=== PATIENT | female | born 1960 | race Caucasian/White ===

== ENCOUNTER 2019-09-26 09:52 | Outpatient (REF) | payer MEDICARE, MEDICAID, SELFPAY ==
[2019-09-26 10:27] LABS: Eosinophils 3 %; Lymphocytes 72 %; Platelet Estimate Normal (Normal); Polychromasia Trace; Segmented Neutrophils 14 %; Total Cells Counted 100 (0-100)
[2019-09-26 10:30] LABS: Absolute Neutrophil 3.2 10^3/cmm (1.4-6.5); Absolute Segmented Neutrophil 2.1 10/cmm (1.6-7.1); Band Neutrophils Absolute 0.5 10^3/cmm (0.0-1.2)
[2019-09-26 10:31] LABS: Absolute Eosinophils 0.5 10^3/cmm (0.0-0.7); Lymphocytes Absolute 10.8 10^3/cmm (1.2-3.4); Monocytes Absolute 0.9 10^3/cmm (0.1-0.6)
== END 2019-09-26 09:53 | disposition home or self-care (01) ==
LOC: LAB 09:52
PROVIDERS: Family Provider Nurse Practitioner Family; Visit Provider Physician Assistant
DX: Z01.89 Encounter for other specified special examinations (principal)
CPT/HCPCS: 85007; 85045

== ENCOUNTER 2019-10-03 08:41 | Outpatient (CLI) | payer MEDICARE, MEDICAID, SELFPAY ==
--- NOTE | 2019-10-03 | US_ITS ---
WS: [id number] RIGHT UPPER QUADRANT ULTRASOUND HISTORY: RUQ ABDOMINAL PAIN COMPARISON: None available. Liver: 13.8 cm in length. Normal size and echogenicity with no intrahepatic dilatation. No mass. Gallbladder: Normally distended gallbladder with no stones or wall thickening. CBD: 4.0 mm Pancreas: Normal size and echogenicity. Right kidney: 10.2 cm in length. Normal echogenicity with no mass or hydronephrosis. Aorta and IVC: Unremarkable. No ascites. US/US abdomen limited [id number] IMPRESSION: Normal RIGHT upper quadrant ultrasound.
== END 2019-10-03 08:42 | disposition home or self-care (01) ==
LOC: RADOUTREAD 10:18
PROVIDERS: Family Provider Nurse Practitioner Family; PCP Physician Assistant; Visit Provider Physician Assistant
DX: Z76.89 Persons encountering health services in other specified circumstances (principal)

== ENCOUNTER 2019-10-09 11:28 | Outpatient (CLI) | payer MEDICARE, MEDICAID, SELFPAY ==
--- NOTE | 2019-10-09 11:42 | XRR_ITS ---
PROCEDURE INFORMATION: Exam: XR Osseous survey; Complete axial and appendicular skeleton Exam date and time: 10/09/2019 12:08 PM Age: 59 years old Clinical indication: Condition or disease; Condition/disease: Monoclonal gammopathy/polyneuropathy; Prior surgery; Surgery type: C and L spine TECHNIQUE: Imaging protocol: Radiological examination. Complete osseous survey. Axial and appendicular skeleton. COMPARISON: No relevant prior studies available. FINDINGS: Bones/joints: Metallic surgical hardware and reversal of cervical lordosis is seen in the cervical spine. Negative for lytic bone changes. A chronic fracture is seen in the right 6th posterior lateral rib. Metallic surgical hardware seen in the lower lumbar spine. There is osteopenia and osteoarthritis of the dorsal and lumbar spine. Otherwise No fracture. No dislocation. Soft tissues: Unremarkable. XR/XR bone survey* [id number] IMPRESSION: Postsurgical changes are seen in the cervical spine and lumbar spine Otherwise negative for lytic bone changes
== END 2019-10-09 11:29 | disposition home or self-care (01) ==
LOC: RAD 11:34
PROVIDERS: Family Provider Nurse Practitioner Family; PCP Physician Assistant; Visit Provider Physician Assistant
DX: D47.2 Monoclonal gammopathy (principal); G62.9 Polyneuropathy, unspecified
CPT/HCPCS: 77075

== ENCOUNTER → 2019-10-22 13:14 | Outpatient (BNVA) | payer MEDICARE, MEDICAID, SELFPAY | PROVIDERS: Family Provider Nurse Practitioner Family; PCP Physician Assistant; Referring Provider Physician Assistant; Visit Provider Psychiatry & Neurology Neurology | DX: G56.03 Carpal tunnel syndrome, bilateral upper limbs (principal); G62.9 Polyneuropathy, unspecified | CPT/HCPCS: 95886; 95911 ==

== ENCOUNTER → 2019-10-25 12:10 | Outpatient (BNVA) | payer MEDICARE, MEDICAID, SELFPAY | PROVIDERS: Family Provider Nurse Practitioner Family; PCP Physician Assistant; Referring Provider Physician Assistant; Visit Provider Psychiatry & Neurology Neurology | DX: G62.9 Polyneuropathy, unspecified (principal); M54.17 Radiculopathy, lumbosacral region | CPT/HCPCS: 95886; 95909 ==

== ENCOUNTER 2019-10-31 09:58 | Outpatient (CLI) | payer MEDICARE, MEDICAID, SELFPAY ==
[2019-10-31 12:13] LABS: Basophils # 0.1 10^3/uL (0.0-0.1); Basophils % 0.3 %; Eosinophils # 0.2 10^3/uL (0.0-0.8); Eosinophils % 1.1 %; Hematocrit 31.2 % (37.0-47.0); Hemoglobin 9.9 g/dL (11.5-15.3); Lymphocytes # 12.1 10^3/uL (0.8-4.8); Lymphocytes % 70.6 %; Mean Corpuscular HGB Conc 31.7 g/dL (30.0-36.0); Mean Corpuscular Volume 94.5 fL (81-99); Mean Platelet Volume 9.4 fL (7.4-10.4); Monocytes # 1.5 10^3/uL (0.2-0.9); Monocytes % 8.7 %; Neutrophils # 3.2 10^3/uL (1.8-7.7); Neutrophils % 18.8 %; Nucleated Red Blood Cells % 0 %; Platelet Count 124 10^3/cmm (130-400); Red Cell Distribution Width 15.3 % (12.1-15.1); White Blood Count 17.1 10^3/uL (4.0-10.0)
[2019-10-31 12:22] LABS: LAB Peripheral Smear Sent for Review
[2019-10-31 12:29] LABS: Slide Review Slide Review Perform
[2019-10-31 13:01] LABS: Alanine Aminotransferase 21 U/L (0-33); Albumin Level 3.8 g/dL (3.5-5.2); Alkaline Phosphatase 71 IU/L (35-105); Anion Gap 15.8 (5-19); Aspartate Amino Transferase 46 U/L (0-32); Blood Urea Nitrogen 8 mg/dL (6-20); Calcium 9.8 mg/dL (8.5-10.5); Carbon Dioxide 28 mmol/L (22-29); Chloride 96 mmol/L (98-107); Globulin 4.7 g/dL (1.3-4.6); Glomerular Filtration Rate 64.3 mL/min (90-130); Glucose 111 mg/dL (65-115); Lactate Dehydrogenase 231 U/L (135-214); Potassium 3.8 mmol/L (3.5-5.1); Sodium 136 mmol/L (136-145); Total Bilirubin 0.3 mg/dL (0.15-1.2); Total Protein 8.5 g/dL (6.6-8.7)
[2019-10-31 13:26] LABS: Immunoglobulin IGA 113 mg/dL (70-400); Immunoglobulin IGG 1129 mg/dL (700-1600)
[2019-10-31 13:41] LABS: Immunoglobulin IGM 1464 mg/dL (40-230)
--- NOTE | 2019-10-31 18:41 | ONC CON_ITS ---
Dr. Solorzano New Patient Note Patient: Yulisa Kinney Unit #: [id number]: 1960 Dicatated By: Robin Solorzano M.D.Date of Visit: Oct 31, 2019 Onc MED New Patient/Consult Referring Physician: Sanchez GROVER Chief Complaint: Lymphocytosis with monoclonal gammopathy and anemia. History of Present Illness: This is a 59-year-old woman with a mild lymphocytosis, anemia, and evidence of a monoclonal gammopathy by protein electrophoresis. She has hypertension and hyperlipidemia, and she also has a diagnosis of fibromyalgia. She has longstanding degenerative arthritis and degenerative disease of the spine. She has had multiple surgeries on both the cervical and lumbar spine. Recently she has been seeing Dr. Jasso in neurology for peripheral neuropathy symptoms. She has been diagnosed with bilateral carpal tunnel syndrome and lumbar radiculopathy. On 09/26/2019 she had a follow-up outpatient visit with Lucy Dean. Her laboratory studies included CBC showing hemoglobin 9.7 g and hematocrit 31.5%. The red cell indices were normal. The white blood cell count was elevated 14,900 with the differential showing 23% granulocytes, 68% lymphocytes, and 7% monocytes. The platelet count was normal at 165,000. Comprehensive metabolic profile showed borderline renal function with BUN 15 and creatinine 1.1 mg/dL. The albumin was normal at 4.2 g/dL with calculated serum globulin elevated at 4.4 g/dL. The liver enzymes were normal. Sed rate and CRP levels were normal. TSH was borderline at 4.74 ???IUl/mL. B12 was normal at 568 pg/mL. Folate was greater than 24.0 ng/mL. The serum iron studies showed slightly low transferrin saturation at 18%. Ferritin was normal at 65 ng/mL. Protein electrophoresis showed a monoclonal protein band quantitating at 1.2 g/dL. Immunofixation showed IgM lambda. She complains that she is very fatigued. She has been on an iron supplement, and she says that it has not been helping. She is able to do some light work. ECOG score is 1. Her appetite has not been good, but her weight has been stable. She has low-grade fever once or twice a week, in the range of 99 to 100 degrees. She has been having some night sweating. She complains that her balance is really bad. She has numbness and tingling in her arms/hands and in her legs and feet. She complains that her legs sometimes do not work, and she also has been dropping objects. She complains that her vision is blurry. She has chronic sinusitis symptoms. She reports having difficulty swallowing. She does not complain of cough, and she has not been having shortness of breath or chest pain. She has been having loose stools for a long time. She has not been aware of any blood in the stool, but she indicates her stools did test positive for blood. She had negative EGD and colonoscopy in June. She has urgency with urination. She has arthritis pain in her hands and she has chronic pain in her neck and back. Past Medical History: Her medical history includes cervical spinal stenosis, degenerative arthritis, degenerative disease of the spine, fibromyalgia, hyperlipidemia, and hypertension. She also was found to be positive for the Factor V Leiden mutation. Past Surgical History: Her surgical/procedural history includes bunionectomy on the right foot, cervical spine surgery x 4, section x 2, EGD and colonoscopy, facial surgery x 3, lumbar spine surgery x 2, multiple oral surgeries, rotator cuff repair x 2, and surgery for dislocated left hip. Medications: Aspirin 1 Tablet (of 81 mg) Oral daily, Atorvastatin Calcium 1 Tablet (of 10 mg) Oral at bedtime, Calcium Citrate + D 1 Tablet (of 315-200 mg - Units) Oral b.i.d., Cyclobenzaprine HCl 1 - 2 Tablet (of 10 mg) Oral b.i.d., Ferrous Sulfate 1 Tablet (of 325 (65 fe) mg) Oral daily, hydroCHLOROthiazide 1 Tablet (of 12.5 mg) Oral daily, Meloxicam 1 Tablet (of 7.5 mg) Oral daily, Metoprolol Tartrate 1 Tablet (of 50 mg) Oral b.i.d., Multivitamin Adult 1 Tablet Oral daily, Vitamin C 1 Capsule (of 500 mg) Oral daily Allergies: Cortisone Acetate, Demerol, Dilaudid, Haldol, and Morphine Sulfate. Social History: Ms. Kinney is and she is a disabled. She has a history of smoking for 30 years up to 2 packs of cigarettes daily. She quit smoking in 2006. She has just occasional alcohol use. Family History: Father had diabetes, coronary artery disease, and chronic kidney disease. He at age 70. Her mother had COPD and history of strokes. She at age 71. A sister with septic shock. Another sister is in good health. She has 1 brother who has coronary disease. Her daughter was found to have factor V Leiden mutation in the course of her evaluation following a stillbirth. Review Of Symptoms: Constitutional - Her energy is low and she is fatigued. She is able to do very light work at home. Her appetite is not very good, but her weight is stable. She often has low-grade fevers of around 99. No chills. She has sweating at night. ECOG score is 1, Eyes - Her vision is blurry, ENMT - She has chronic sinus issues. No mouth sores. No sore throat. She has difficulty swallowing certain foods, especially meats and bread, Hematologic/Lymphatic - No abnormal bruising or bleeding, Respiratory - No shortness of breath. No cough. No pleuritic pain or hemoptysis, Cardiovascular - No angina pain. No palpitations, Gastrointestinal - No nausea or vomiting. No heartburn or acid reflux. Her bowels are loose, which is chronic for her. She has blood in her stool, Genitourinary (F) - No dysuria or hematuria. No urinary frequency. She has urgency. No incontinence. She recently had a kidney infection, Musculoskeletal - She has arthritis in her hands and in her spine and neck, Integumentary - No skin complications, Neurologic - No headache. She frequently feels light-headed and dizzy. She has a lot of trouble with her balance. She has numbness and tingling in her hands and feet. Sometimes she has the numbness and tingling in her arms up to her elbows and in her legs up to her knees, Psychiatric - No anxiety or depression. She has trouble sleeping at night. Vital Signs: Performed on Oct 31, 2019 10:56: 4, 23.67, 1.47 sq.m, 59.00 in, 98 %, 97 /min, 18 /min, 106/73 mm(hg), 99.7 F (HIGH), and 117.2 lbs (HIGH). Physical Examination: Constitutional - She appears chronically ill, Eyes - Sclerae nonicteric. Conjunctivae clear, ENMT - No lesions noted in the oral cavity, Neck - No mass or thyromegaly, Hematologic/Lymphatic - No cervical, clavicular, or axillary adenopathy, Respiratory - Lungs are clear. She has pretty good air movement bilaterally, Cardiovascular - Heart rhythm is regular. There is no murmur, gallop, or rub noted. There is no carotid bruit noted, Abdomen - Soft and non-tender. Liver is not enlarged. The spleen is palpable on inspiration just below the costal margin. There is no abdominal mass or ascites noted and there is no inguinal adenopathy, Back/Spine - No spine or CVA tenderness noted, Extremities - No edema. Pedal pulses are palpable bilaterally. There are osteoarthritis changes in both hands, Integumentary - No rashes. No suspicious skin lesions noted, Neurologic - She has postural instability and she has somewhat of a shuffling gait. She does not appear to have any focal neurologic deficit. Impression: 1. Patient with lymphocytosis, anemia, and IgM monoclonal gammopathy. This is clearly indicative of a lymphoproliferative disorder, most likely Waldenstrom's macroglobulinemia, though it also could be CLL with an associated monoclonal protein. 2. She has significant peripheral neuropathy, which could also be associated with Waldenstrom's macroglobulinemia. Her other medical illnesses include: 3. Hypertension. 4. Hyperlipidemia. 5. Fibromyalgia. 6. Degenerative arthritis and degenerative disease of the spine. She has associated cervical spinal canal stenosis. 7. She was reportedly found to be positive for the Factor V Leiden mutation. Plan: The laboratory findings and clinical implications were reviewed with the patient. She clearly has evidence of a lymphoproliferative disorder. I think this is most likely Waldenstrom's macroglobulinemia, as it can be associated with peripheral neuropathy. We discussed the fact that lymphoproliferative disorders in this category are treatable malignancies, though not curable. At least initially I will recheck laboratory studies including her CBC, comprehensive metabolic profile, LDH level, serum protein electrophoresis and immunofixation, and quantitative immunoglobulin levels. I will review the blood smear, though will request a whole blood flow cytometry for lymphoma/leukemia markers. At some point she will also need staging evaluation with either CT chest/abdomen/pelvis or PET/CT, and she will need to undergo bone marrow aspiration/biopsy, but I would first like to see what the flow cytometry shows. Signed By: Robin Solorzano M.D. <<Signature on File>>
[2019-11-01 07:34] LABS: PROTEIN, TOTAL 7.6 g/dL (6.1-8.1)
[2019-11-01 12:02] LABS: ABNORMAL PROTEIN BAND 1 1.1 g/dL (NONE DETECTED); ALBUMIN 3.7 g/dL (3.8-4.8); ALPHA 1 GLOBULIN 0.4 g/dL (0.2-0.3); ALPHA 2 GLOBULIN 0.9 g/dL (0.5-0.9); BETA 1 GLOBULIN 0.5 g/dL (0.4-0.6); BETA 2 GLOBULIN 0.3 g/dL (0.2-0.5); GAMMA GLOBULIN 1.9 g/dL (0.8-1.7)
[2019-11-01 16:56] LABS: KAPPA LIGHT CHAIN, FREE, SERUM 33.8 mg/L (3.3-19.4); KAPPA/LAMBDA LIGHT CHAINS FREE 0.63 (0.26-1.65); LAMBDA LIGHT CHAIN, FREE, SERU 53.3 mg/L (5.7-26.3)
== END 2019-10-31 09:59 | disposition home or self-care (01) ==
PROVIDERS: Family Provider Nurse Practitioner Family; PCP Physician Assistant; Referring Provider Physician Assistant; Visit Provider Internal Medicine Medical Oncology
DX: D47.2 Monoclonal gammopathy (principal); D64.9 Anemia, unspecified; D72.820 Lymphocytosis (symptomatic); I10 Essential (primary) hypertension; E78.5 Hyperlipidemia, unspecified; M79.7 Fibromyalgia; M19.90 Unspecified osteoarthritis, unspecified site; G56.03 Carpal tunnel syndrome, bilateral upper limbs; M54.16 Radiculopathy, lumbar region; G89.29 Other chronic pain; M48.02 Spinal stenosis, cervical region; D68.51 Activated protein C resistance; G62.9 Polyneuropathy, unspecified; Z79.82 Long term (current) use of aspirin; Z87.891 Personal history of nicotine dependence
CPT/HCPCS: 36415; 80053; 82784; 83615; 83883; 84155; 84165; 85025; 99205

== ENCOUNTER 2019-11-06 07:35 | Outpatient (CLI) | payer MEDICARE, MEDICAID, SELFPAY ==
[2019-12-03 09:32] LABS: Miscellaneous Test See Scanned Lab Rpt
== END 2019-11-06 07:36 | disposition home or self-care (01) ==
LOC: ONCMED 16:01
PROVIDERS: Family Provider Nurse Practitioner Family; PCP Physician Assistant; Visit Provider Internal Medicine Medical Oncology
DX: Z01.89 Encounter for other specified special examinations (principal)

== ENCOUNTER 2019-11-14 09:54 | Outpatient (CLI) | payer MEDICARE, MEDICAID, SELFPAY ==
[2019-11-14] MEDS: sodium chloride 0.9% 500 ML 999 ML IV (10:16)
--- NOTE | 2019-11-14 11:18 | CT_ITS ---
WS: [id number] CT CHEST, ABDOMEN, AND PELVIS TECHNIQUE: Contrast-enhanced CT of the chest, abdomen, and pelvis with coronal and sagittal reformatt ed images. CLINICAL INFORMATION: LYMPHOPROLIFEATIVE DISORDER COMPARISON: None. DLP: 974.[address] scans at [facility] use at least one of these dose optimization techniques: automat ed exposure control; mA and/or kV adjustment per patient size (includes targeted exams where dose is matched to clinical indication); or iterative reconstruction. CT CHEST: Mild chronic emphysematous changes. No acute pulmonary infiltrates. No suspicious pulmonary parenchym al abnormalities. No suspicious pulmonary mass or lesion. Normal caliber thoracic aorta. Proximal osman n pulmonary arteries are normal. Coronary calcification. Normal thyroid gland. No mediastinal or kevon r lymphadenopathy. Normal endobronchial tree. Prominent left axillary lymph nodes the largest measuring 9 mm in short axis dimension. Slightly prom inent inferior axillary lymph nodes measuring up to 8 mm. No evidence of supraclavicular lymphadenopa thy. CT ABDOMEN AND PELVIS: Normal liver. Normal portal vein and splenic vein. Gallbladder is contracted. Enlargement of the righ t hepatic lobe. Splenomegaly measuring 13.1 cm [id number]. Mild prominence of the distal common vineet e duct measuring 6 mm. Adrenal glands are normal. Normal renal parenchymal enhancement. Mild renal cortical atrophy. No hydr onephrosis. Normal GE junction. No upper abdominal lymphadenopathy. No periaortic lymphadenopathy. Urine distended bladder. Normal caliber small and large bowel. Incidental fat-containing umbilical he rnia. Prominent inguinal lymph nodes the largest measuring up to 10 mm. Prominent upper abdominal lym ph node measuring 11 mm along the celiac axis. Slightly prominent periaortic lymph node measuring 7 m m. Additional shotty periaortic lymph nodes. Prior postoperative changes pedicle screw fixation L4-5 with interspinous spacer. Interbody fusion gr aft. Grade 1 anterolisthesis L4 on L5. Unilateral right-sided pedicle screws with right pedicle screw fixation. CT/CT chest abd pel w con* IMPRESSION: 1. Prominent left axillary lymph nodes the largest measuring up to 10 mm. 2. No mediastinal or hilar lymphadenopathy. 3. Enlarged celiac axis lymph node measuring 11.5 mm. 4. Prominent left paraaortic lymph node measuring 7 mm. Additional Shotty myla aortic lymph nodes. 5. Prominent left greater than right inguinal lymph nodes measuring up to 10 m m. 6. Enlarged right hepatic lobe. Splenomegaly.
[2019-11-14] MEDS: iohexol 300 mg/mL 100 mL Btl IV (13:28)
== END 2019-11-14 09:55 | disposition home or self-care (01) ==
PROVIDERS: Family Provider Physician Assistant; PCP Physician Assistant; Visit Provider Internal Medicine Medical Oncology
DX: D47.9 Neoplasm of uncertain behavior of lymphoid, hematopoietic and related tissue, unspecified (principal); R59.1 Generalized enlarged lymph nodes; R16.1 Splenomegaly, not elsewhere classified; E86.0 Dehydration
CPT/HCPCS: 71260; 74177; 96360; J7040; Q9967

== ENCOUNTER 2019-12-05 08:58 | Day surgery (SDC) | payer MEDICARE, MEDICAID, SELFPAY ==
[2019-12-05 09:39] VITALS: BP 103/66; PULSE 90; RESP 18; TEMP 36.3; O2SAT 98; BMI 23.0
--- NOTE | 2019-12-05 10:19 | ANES.PREANE2 ---
Pre-Anesthetic Assessment Pre-Anesthetic Assessment: Height/Weight: Height 1.5 m Weight 51.71 kg Temp Pulse Resp BP Pulse Ox 97.4 F L 90 18 103/66 98 12/05/19 09:39 12/05/19 09:39 12/05/19 09:39 12/05/19 09:39 12/05/19 09:39 Proposed Procedure: Operation Date: 12/05/19 10:30 Proposed Procedures p Bone Marrow Biopsy(Not Applicable) - Dori Castano MD Operation Date: 12/05/19 11:30 Proposed Procedures p Bone Marrow Biospy With Aspiration(Not Applicable) - Dori Castano MD Was Beta Emilie taken within 24 hours: Yes Last intake: Intake Last Liquid Date 12/04/19 Last Liquid Time 19:00 Last Intake: 20:00 Social: Social History: Alcohol (2-3 times a week) and Tobacco Pack years: stop 2006 Exam: Pre-Anes Outpt Exam: alert, oriented x 3, clear to auscultation bilaterally and regular rate & rhythm Airway: Submandibular: WNL Cervical ROM: WNL MP: 2 Dentition: False (upper) Pulmonary: Pulmonary: None reported CV/HEM: CV/HEM: Anemia and HTN Comments: denies CP/SOB : : None reported Hepatic: Hepatic: None reported GI: GI: None reported Metabolic: Metabolic: None reported Musc/skel: Musc/skel: OA/DJD Neuropsych: Neuropsych: None reported Anesthetic Plan: ASA status: 3 Anesthesia: MAC Risk of > 500 ml blood loss (7ml/kg in children): No Data Anesthesia Cardiac Studies: No Data to Display
[2019-12-05] MEDS: sodium chloride 0.9% 1,000 ML 30 ML IV (10:40)
[2019-12-05 11:05] VITALS: BP 97/58; PULSE 87; RESP 16; TEMP 36.6; O2SAT 100
[2019-12-05 11:07] LABS: INR 0.89 (0.8-1.2)
[2019-12-05 11:10] VITALS: BP 95/56; PULSE 85; RESP 16; O2SAT 100
[2019-12-05 11:15] VITALS: BP 100/67; PULSE 86; RESP 16; O2SAT 100
--- NOTE | 2019-12-05 11:24 | ANE.PACU2 ---
 Inpatient post-anesthesia follow up: Airway intact: Yes Vital signs: Temperature 97.4 F Pulse Rate 90 Respiratory Rate 18 Blood Pressure 103/66 Pulse Oximetry 98 Oxygen Delivery Me thod Room Air Oxygen Flow Rate Fraction of Inspir ed Oxygen Hydration adequate: Yes Nausea and vomiting: No Pain level: 1 Mental status: Baseline
--- NOTE | 2019-12-05 11:38 | P.DS_ITS ---
Discharge Providers Date of Discharge: December 05, 2019 Attending Provider at Discharge: Dori Castano MD Primary Care Provider: Lucy Dean Reason for Visit Reason for Visit: Reason For Visit: [place] Hospital Course Discharge Summary: Patient underwent bone marrow aspiration and biopsy, tolerated procedure well, nursing were given post procedure instructions. And being discharged home in a stable condition. And follow-up with Dr. Solorzano as scheduled. Patient was advised to call in case she has any issues or concerns. Discharge Data Data Completed and Pending: Labs from last 24 hours 12/05/19 10:15 PT 12.10 INR 0.89 Vitals: Last Vital Signs Temp 97.8 F 12/05/19 11:05 Pulse 86 12/05/19 11:15 Resp 16 12/05/19 11:15 BP 100/67 12/05/19 11:15 Pulse Ox 100 12/05/19 11:15 Discharge Plan Discharge Patient Disposition: Home, Self-Care Prescriptions: No Action multivitamin Tablet 1 tab PO DAILY RF: 0 cyclobenzaprine 10 mg Tablet 10 mg PO TID RF: 0 metoprolol succinate 50 mg Tablet Extended Release 24 Hr 50 mg PO BID RF: 0 Aspir-81 81 mg Tablet,Delayed Release (Dr/Ec) 81 mg PO DAILY RF: 0 Vitamin C 500 mg Tablet 250 mg PO BID RF: 0 Colace 100 mg Capsule 100 mg PO DAILY RF: 0 Calcium 500 + D 500 mg(1,250mg) -200 unit Tablet RF: 0 hydrochlorothiazide 12.5 mg Tablet 12.5 mg PO DAILY RF: 0 atorvastatin RF: 0 meloxicam RF: 0 Referrals: Lucy Dean PA [Primary Care Provider] - Patient Instructions: Post Anesthesia Care Discharge Attestations Time Spent in Discharge Care*: less than 30 min Quality Metrics Clinical Quality Measures During this hospital stay, did patient experience: None Coding Level of Care Code Acute 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
--- NOTE | 2019-12-05 11:43 | P.PCN_ITS ---
Bone Marrow Biopsy Bone Marrow Biopsy: I was consulted by [] office regarding bone marrow biopsy on [Yulisa Kinney ]. Briefly, the patient is a [59 ] year old [Female with [Macroglobulinemia]. In the Outpatient Services Department, with nursing staff and laboratory technologists in attendance, the procedure was discussed with the patient. Appropriate consent form had been signed. Appropriate alternatives, benefits and risks of procedure were discussed with the patient and she was pre- operatively assessed with a history and physical by myself and cleared for the biopsy procedure. The patient did request IV sedation and that was provided by the Anesthesia Department. Under aseptic condition, right posterior iliac area was cleaned and prepped, local anesthesia was given and about 15 mL of bone marrow aspirate and core biopsy was obtained. Patient tolerated procedure well, specimen was sent for routine histopathology, flow cytometry/cytogenetics and lymphoma panel. Postprocedure instructions were given to the nursing Thank you for allowing me to participate in this patient's care and diagnosis. Coding Level of Care Code Acute Manager Beverage for Luis Walden
[2019-12-05 11:45] VITALS: BP 103/67; PULSE 87; RESP 18; O2SAT 96
[2019-12-10 09:47] LABS: Miscellaneous Test See Scanned Lab Rpt
[2019-12-17 11:28] LABS: Clinical Indication See Report; Specimen Type See Report
[2019-12-17 11:29] LABS: Miscellaneous Test See Scanned Lab Rpt
== END 2019-12-05 12:40 | disposition home or self-care (01) ==
PROVIDERS: Internal Medicine Medical Oncology; Family Provider Physician Assistant; PCP Physician Assistant; Visit Provider Internal Medicine Hematology & Oncology
PROC: (CPT 38221; principal; 2019-12-05 10:30)
DX: D47.2 Monoclonal gammopathy (principal); D72.820 Lymphocytosis (symptomatic)
CPT/HCPCS: 12345; 36415; 38222; 85097; 85610; 88184; 88237; 88264; 88305; 88311; 88313; 88341; 88342; J2704; J7030

== ENCOUNTER 2019-12-16 12:48 | Outpatient (CLI) | payer MEDICARE, MEDICAID, SELFPAY ==
[2019-12-16 13:34] LABS: Basophils % 0.3 %; Eosinophils # 0.2 10^3/uL (0.0-0.8); Eosinophils % 1.3 %; Hematocrit 29.5 % (37.0-47.0); Hemoglobin 9.3 g/dL (11.5-15.3); Lymphocytes # 8.8 10^3/uL (0.8-4.8); Lymphocytes % 65.7 %; Mean Corpuscular HGB Conc 31.5 g/dL (30.0-36.0); Mean Corpuscular Hemoglobin 29.4 pg (28.0-34.0); Mean Corpuscular Volume 93.4 fL (81-99); Mean Platelet Volume 9.9 fL (7.4-10.4); Monocytes # 1.2 10^3/uL (0.2-0.9); Monocytes % 8.8 %; Neutrophils # 3.1 10^3/uL (1.8-7.7); Neutrophils % 23.4 %; Nucleated Red Blood Cells % 0 %; Platelet Count 120 10^3/cmm (130-400); Red Blood Count 3.16 10^6/uL (4.1-5.3); White Blood Count 13.3 10^3/uL (4.0-10.0)
[2019-12-16 13:42] LABS: Alanine Aminotransferase 21 U/L (0-33); Albumin Level 4.1 g/dL (3.5-5.2); Alkaline Phosphatase 66 IU/L (35-105); Anion Gap 18.1 (5-19); Aspartate Amino Transferase 48 U/L (0-32); Blood Urea Nitrogen 17 mg/dL (6-20); Calcium 10.3 mg/dL (8.5-10.5); Carbon Dioxide 24 mmol/L (22-29); Chloride 94 mmol/L (98-107); Glomerular Filtration Rate 46.1 mL/min (90-130); Glucose 122 mg/dL (65-115); Lactate Dehydrogenase 214 U/L (135-214); Osmolality Calculated 272 mOsm/kg (285-295); Potassium 4.1 mmol/L (3.5-5.1); Sodium 132 mmol/L (136-145); Total Bilirubin 0.3 mg/dL (0.15-1.2); Total Protein 8.1 g/dL (6.6-8.7)
[2019-12-16 14:06] LABS: Slide Review Slide Review Perform
[2019-12-16 14:35] LABS: Hepatitis B Surface AB. 3.5 (0-8.5); Hepatitis B Surface Antigen. Non-Reactive (Nonreactive)
[2019-12-16 15:34] LABS: Iron 43 ug/dL (37-145); Percent Saturation 15.4 % (20-50); Total Iron Binding Capacity 279 mcg/dl; Unsaturated Iron Binding 236 ug/dL (112-347)
--- NOTE | 2019-12-16 19:54 | ONC FU_ITS ---
Dr. Solorzano Patient Follow-Up Note Patient: Yulisa Kinney Unit #: [id number]: 1960 Dicatated By: Robin Solorzano M.D.Date of Visit:Dec 16, 2019 Onc Med Follow-up/Prog Note Chief Complaint: Waldenstrom's macroglobulinemia. 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 She has been seeing Dr. Jasso in neurology for peripheral neuropathy symptoms. She had been diagnosed with bilateral carpal tunnel syndrome and lumbar radiculopathy. On 09/26/2019 she had a follow-up outpatient visit with Lucy Dean. Her laboratory studies included CBC showing hemoglobin 9.7 g and hematocrit 31.5%. The red cell indices were normal. The white blood cell count was elevated 14,900 with the differential showing 23% granulocytes, 68% lymphocytes, and 7% monocytes. The platelet count was normal at 165,000. Comprehensive metabolic profile showed borderline renal function with BUN 15 and creatinine 1.1 mg/dL. The albumin was normal at 4.2 g/dL with calculated serum globulin elevated at 4.4 g/dL. The liver enzymes were normal. Sed rate and CRP levels were normal. TSH was borderline at 4.74 ???IUl/mL. B12 was normal at 568 pg/mL. Folate was greater than 24.0 ng/mL. The serum iron studies showed slightly low transferrin saturation at 18%. Ferritin was normal at 65 ng/mL. Protein electrophoresis showed a monoclonal protein band quantitating at 1.2 g/dL. Immunofixation showed IgM lambda. I had seen her initially on 10/31/2019. She was noted to have a palpable spleen, but there was no peripheral lymphadenopathy noted. Her repeat CBC showed hemoglobin 9.9 g, white blood cell count 17,000, and platelet count 124,000. The differential showed 70% lymphocytes, 18% neutrophils, 8% monocytes, and 1% eosinophils. Comprehensive metabolic profile was unremarkable except for slightly elevated SGOT at 46/32 U/L. LDH was just slightly elevated at 231/214 U/L. Protein electrophoresis showed an M band quantitating at 1.1 g/dL. The quantitative immunoglobulins included IgG elevated at 1464/230 mg/dL, IgG normal at 1129 mg/dL, and IgA normal at 113 mg/dL. The free light chain assay showed elevated lambda light chain at 53.3 mg/L, kappa light chain 33.8 mg/L and kappa/lambda ratio within the normal range at 0.63. A whole blood flow cytometry on 11/06/2019 showed on monotypic B-cell population which was positive for CD19, CD20, and CD22. There was dim/partial positivity to FMC7 and CD25. A subset showed surface lambda light chain restriction, but the remaining population appeared to be light chain negative. The monotypic B cells were negative for CD5, CD10, CD23, CD11c, CD103, CD123, CD200, CD38, and CD34. The phenotype was felt to be nonspecific. Staging CT scans of the chest, abdomen, and pelvis on 11/14/2019 showed prominent left axillary lymph nodes, the largest measuring 10 mm, an enlarged celiac axis lymph node measuring 11.5 mm, a prominent left periaortic lymph node measuring 7 mm, and prominent inguinal lymph nodes measuring up to 10 mm. The spleen was enlarged measuring 13.1 cm. The right hepatic lobe was noted to be enlarged, but the liver otherwise appeared normal. She underwent bone marrow aspiration/biopsy on 12/05/2019. The interpretation was limited due to the bone marrow aspirate specimens having been hemodiluted without cellular spicules. Bone marrow was noted to be hypercellular on the biopsy specimen, averaging 60 to 90% cellularity. An extensive interstitial and diffuse lymphoid infiltrate was noted to involve a high proportion of the marrow space, estimated at 70 to 80%. The lymphoid cells were noted to be small and round with clumped nuclear chromatin. There was evidence of plasmacytic differentiation. The flow cytometry showed nonspecific phenotype, similar to the whole blood specimen. Iron stores were noted to be reduced, but not absent. Overall, the findings were not definitive, but they were suggestive of lymphoplasmacytic lymphoma. Her other medical illnesses includehypertension, hyperlipidemia, fibromyalgia, and degenerative arthritis/degenerative disease of the spine. She has had multiple surgeries on both the cervical and lumbar spine. She reportedly was found to be positive for the Factor V Leiden mutation. She has history of smoking for 30 years, up to 2 packs of cigarettes daily. She quit smoking in 2006. She is seen for a follow-up visit. She says her energy is not very good. She is able to do some light work. Her ECOG score is 1. She says she is not hungry, but she eats. Her weight is stable. She has no fever or night sweats. She does not complain of cough, shortness of breath, or chest pain. She complains that her bowels have been runny for several years, but with intermittent episodes of constipation. She has no other GI or complaints. She has joint pain, mainly in her hands and elbows, and she has chronic back pain. She does not complain of headache. She says she always gets dizzy when she is looking up. She continues to have numbness/tingling in her hands and feet. It is severe enough that she drops objects frequently. She also has symptoms of restless leg syndrome at night, and she has a lot of leg cramps at night. Medications: Aspirin 1 Tablet (of 81 mg) Oral daily, Atorvastatin Calcium 1 Tablet (of 10 mg) Oral at bedtime, Calcium Citrate + D 1 Tablet (of 315-200 mg - Units) Oral b.i.d., Cyclobenzaprine HCl 1 - 2 Tablet (of 10 mg) Oral b.i.d., hydroCHLOROthiazide 1 Tablet (of 12.5 mg) Oral daily, Meloxicam 1 Tablet (of 7.5 mg) Oral daily, Metoprolol Tartrate 1 Tablet (of 50 mg) Oral b.i.d., Multivitamin Adult 1 Tablet Oral daily, Vitamin C 1 Capsule (of 500 mg) Oral daily Allergies: Cortisone Acetate, Demerol, Dilaudid, Haldol, and Morphine Sulfate. Review of Systems: Constitutional - She does not have very good energy, though she is able to do light housework. Her appetite is good and weight is stable. No fever, chills, hot flashes, or night sweats. ECOG score is 1, ENMT - No sinus congestion/drainage. No mouth sores. No sore throat or difficulty swallowing, Hematologic/Lymphatic - No abnormal bruising or bleeding, Respiratory - No shortness of breath. No cough. No pleuritic pain or hemoptysis, Cardiovascular - No angina pain. No palpitations, Gastrointestinal - No nausea or vomiting. No heartburn or acid reflux. She has chronic problems with bowel function, with mostly loose stools, but with episodes of constipation. No blood in the stool or black stools, Genitourinary (F) - No dysuria or hematuria. No urinary frequency. No urgency or incontinence, Musculoskeletal - She has chronic arthritis pain in her hands and elbows. She also has back pain, Integumentary - No skin complications, Neurologic - No headache. She has chronic dizziness with positonal changes. She continues to have numbness and tingling in her hands and feet. She has symptoms of restless leg syndrome and she has muscle cramping in her legs at night, Psychiatric - No anxiety or depression. No insomnia. Vital Signs: Performed on Dec 16, 2019 13:04 Height - 59.00 in Weight - 115.8 lbs (LOW) BSA - 1.46 sq.m BMI - 23.39 Temperature - 98.0 F (LOW) Pulse - 88 /min Respiration - 18 /min BP - 101/64 mm(hg) O2 Sat - 95 % (LOW) Pain - 0 Physical Examination: Constitutional - She appears somewhat weak generally, Eyes - Sclerae nonicteric. Conjunctivae clear, ENMT - No lesions noted in the oral cavity, Hematologic/Lymphatic - No cervical, clavicular, or axillary adenopathy, Respiratory - Lungs are clear with good air movement bilaterally, Cardiovascular - Heart rhythm is regular. There is no murmur, gallop, or rub noted, Abdomen - Soft and non-tender. Liver is not enlarged. The spleen is palpable on inspiration just below the costal margin. There is no abdominal mass or ascites noted and there is no inguinal adenopathy, Extremities - No edema, Neurologic - She does not appear to have any focal neurologic deficit. Lab/Imaging: Test performed on Dec 16, 2019 13:11 LDH (Total) 214 U/L Sodium 132 mmol/L Potassium 4.1 mmol/L Chloride 94 mmol/L CO2 24 mmol/L Anion Gap 18.1 BUN 17 mg/dL Creatinine 1.2 mg/dL Cr Clearance (Est) 42.37 mL/min eGFR 46.1 mL/min Glucose 122 mg/dL Calcium 10.3 mg/dL Protein, Total 8.1 g/dL Albumin 4.1 g/dL Globulin 4.0 g/dL Bilirubin, Total 0.3 mg/dL ALT (SGPT) 21 U/L AST (SGOT) 48 U/L Alkaline Phosphatase 66 IU/L WBC 13.3 10 3/uL RBC 3.16 10 6/uL HGB 9.3 g/dL HCT 29.5 % MCV 93.4 fL MCH 29.4 pg MCHC 31.5 g/dL RDW 15.0 % Platelet Count 120 10 3/cmm MPV 9.9 fL Neutrophils 3.1 10 3/uL Lymphocytes 8.8 10 3/uL Monocytes 1.2 10 3/uL Eosinophils 0.2 10 3/uL Basophils 0.0 10 3/uL Neutrophil % 23.4 % Lymphocyte % 65.7 % Monocyte % 8.8 % Eosinophil % 1.3 % Basophils % 0.3 % CBC Slide Review Slide Review Perform SLIDE SCAN AGREES WITH AUTO DIFF. Impression: 1. Patient with lymphoproliferative disorder with associated IgM monoclonal gammopathy. The bone marrow findings are not definitive, but the entire clinical picture is consistent with Waldenstrom's macroglobulinemia. 2. She has significant peripheral neuropathy, which I suspect is related. Her other medical illnesses include: 3. Hypertension. 4. Hyperlipidemia. 5. Fibromyalgia. 6. Degenerative arthritis and degenerative disease of the spine. She has associated cervical spinal canal stenosis. 7. She was reportedly found to be positive for the Factor V Leiden mutation. Plan: The results of the flow cytometry studies and the bone marrow findings were reviewed with the patient. We discussed the clinical implications. She clearly has a lymphoproliferative disorder. It appears to be most consistent with Waldenstrom's macroglobulinemia, and I suspect that the peripheral neuropathy is related. An MYD88 analysis is now in process, and those results will be helpful in confirming the diagnosis and in guiding therapy. I reviewed the major options for initial therapy which would be the bendamustine/rituximab chemotherapy combination versus ibrutinib/rituximab. The latter would be the preferred option if she is confirmed to be MYD88 positive. She will be contacted for further recommendations when those results are available. In the meantime, I will check serum iron studies, and she will begin on an oral iron supplement as indicated. Signed By: Robin Solorzano M.D. <<Signature on File>>
== END 2019-12-16 12:49 | disposition home or self-care (01) ==
LOC: ONCMED 12:48
PROVIDERS: Family Provider Physician Assistant; PCP Physician Assistant; Visit Provider Internal Medicine Medical Oncology
DX: C88.0 Waldenstrom macroglobulinemia (principal); D47.2 Monoclonal gammopathy; M79.642 Pain in left hand; M79.641 Pain in right hand; M25.522 Pain in left elbow; M25.521 Pain in right elbow; G62.9 Polyneuropathy, unspecified; I10 Essential (primary) hypertension; E78.5 Hyperlipidemia, unspecified; M79.7 Fibromyalgia; M19.90 Unspecified osteoarthritis, unspecified site; M48.02 Spinal stenosis, cervical region; D68.51 Activated protein C resistance; G25.81 Restless legs syndrome; Z79.82 Long term (current) use of aspirin; Z79.899 Other long term (current) drug therapy; Z87.891 Personal history of nicotine dependence
CPT/HCPCS: 36415; 80053; 83516; 83520; 83540; 83550; 83615; 85025; 86705; 86706; 87340; 99214

== ENCOUNTER 2020-01-28 06:46 | Outpatient (RCR) | payer MEDICARE, MEDICAID, SELFPAY ==
[2020-01-10 11:44] LABS: Alanine Aminotransferase 20 U/L (0-33); Albumin Level 3.6 g/dL (3.5-5.2); Alkaline Phosphatase 62 IU/L (35-105); Anion Gap 14.4 (5-19); Aspartate Amino Transferase 45 U/L (0-32); Blood Urea Nitrogen 10 mg/dL (6-20); Calcium 8.8 mg/dL (8.5-10.5); Carbon Dioxide 26 mmol/L (22-29); Chloride 96 mmol/L (98-107); Globulin 3.8 g/dL (1.3-4.6); Glomerular Filtration Rate 56.9 mL/min (90-130); Glucose 89 mg/dL (65-115); Osmolality Calculated 269 mOsm/kg (285-295); Potassium 4.4 mmol/L (3.5-5.1); Sodium 132 mmol/L (136-145); Total Bilirubin 0.3 mg/dL (0.15-1.2); Total Protein 7.4 g/dL (6.6-8.7)
[2020-01-10 13:25] LABS: Basophils # 0.1 10^3/uL (0.0-0.1); Basophils % 0.6 %; Eosinophils # 0.2 10^3/uL (0.0-0.8); Hemoglobin 8.8 g/dL (11.5-15.3); Lymphocytes # 8.2 10^3/uL (0.8-4.8); Lymphocytes % 67.5 %; Mean Corpuscular HGB Conc 31.4 g/dL (30.0-36.0); Mean Corpuscular Hemoglobin 28.7 pg (28.0-34.0); Mean Corpuscular Volume 91.2 fL (81-99); Mean Platelet Volume 10.2 fL (7.4-10.4); Monocytes # 1.2 10^3/uL (0.2-0.9); Neutrophils # 2.4 10^3/uL (1.8-7.7); Neutrophils % 19.5 %; Nucleated Red Blood Cells % 0 %; Platelet Count 121 10^3/cmm (130-400); Red Blood Count 3.07 10^6/uL (4.1-5.3); Red Cell Distribution Width 15.9 % (12.1-15.1); White Blood Count 12.1 10^3/uL (4.0-10.0)
[2020-01-10 13:32] LABS: Slide Review Slide Review Perform
[2020-01-13] MEDS: acetaminophen 325 mg Tablet 650 MG PO (09:30)
[2020-01-13] MEDS: sodium chloride 0.9% 500 ML 75 ML IV (09:45)
[2020-01-20 09:11] LABS: Basophils # 0.1 10^3/uL (0.0-0.1); Basophils % 0.9 %; Eosinophils # 0.1 10^3/uL (0.0-0.8); Eosinophils % 1.5 %; Hematocrit 28.4 % (37.0-47.0); Hemoglobin 8.7 g/dL (11.5-15.3); Lymphocytes # 5.1 10^3/uL (0.8-4.8); Lymphocytes % 53.4 %; Mean Corpuscular HGB Conc 30.6 g/dL (30.0-36.0); Mean Corpuscular Hemoglobin 28.5 pg (28.0-34.0); Mean Corpuscular Volume 93.1 fL (81-99); Mean Platelet Volume 10.5 fL (7.4-10.4); Monocytes # 1.2 10^3/uL (0.2-0.9); Monocytes % 12.6 %; Neutrophils % 31.4 %; Nucleated Red Blood Cells % 0 %; Platelet Count 125 10^3/cmm (130-400); Red Blood Count 3.05 10^6/uL (4.1-5.3); Red Cell Distribution Width 16.4 % (12.1-15.1); White Blood Count 9.6 10^3/uL (4.0-10.0)
[2020-01-20 09:31] LABS: Alanine Aminotransferase 18 U/L (0-33); Albumin Level 4.1 g/dL (3.5-5.2); Alkaline Phosphatase 50 IU/L (35-105); Anion Gap 17.1 (5-19); Aspartate Amino Transferase 36 U/L (0-32); Blood Urea Nitrogen 18 mg/dL (6-20); Calcium 9.8 mg/dL (8.5-10.5); Carbon Dioxide 26 mmol/L (22-29); Chloride 99 mmol/L (98-107); Globulin 3.5 g/dL (1.3-4.6); Glomerular Filtration Rate 33.1 mL/min (90-130); Glucose 86 mg/dL (65-115); Osmolality Calculated 282 mOsm/kg (285-295); Potassium 4.1 mmol/L (3.5-5.1); Sodium 138 mmol/L (136-145); Total Bilirubin 0.5 mg/dL (0.15-1.2); Total Protein 7.6 g/dL (6.6-8.7)
[2020-01-20] MEDS: acetaminophen 325 mg Tablet 650 MG PO (11:40)
[2020-01-20] MEDS: sodium chloride 0.9% 250 ML 75 ML IV (11:46)
--- NOTE | 2020-01-24 10:38 | ONC FU_ITS ---
[facility] Patient Note Patient: Yulisa Kinney Unit #: [id number]: 1960 Dictated By: Rosetta VictoriaDate of Visit: January 20, 2020 Onc MED Follow-Up/Prog Note Chief Complaint: Waldenstrom's macroglobulinemia. 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 She has been seeing Dr. Jasso in neurology for peripheral neuropathy symptoms. She had been diagnosed with bilateral carpal tunnel syndrome and lumbar radiculopathy. On 09/26/2019 she had a follow-up outpatient visit with Lucy Dean. Her laboratory studies included CBC showing hemoglobin 9.7 g and hematocrit 31.5%. The red cell indices were normal. The white blood cell count was elevated 14,900 with the differential showing 23% granulocytes, 68% lymphocytes, and 7% monocytes. The platelet count was normal at 165,000. Comprehensive metabolic profile showed borderline renal function with BUN 15 and creatinine 1.1 mg/dL. The albumin was normal at 4.2 g/dL with calculated serum globulin elevated at 4.4 g/dL. The liver enzymes were normal. Sed rate and CRP levels were normal. TSH was borderline at 4.74 ???IUl/mL. B12 was normal at 568 pg/mL. Folate was greater than 24.0 ng/mL. The serum iron studies showed slightly low transferrin saturation at 18%. Ferritin was normal at 65 ng/mL. Protein electrophoresis showed a monoclonal protein band quantitating at 1.2 g/dL. Immunofixation showed IgM lambda. Dr Solorzano had seen her initially on 10/31/2019. She was noted to have a palpable spleen, but there was no peripheral lymphadenopathy noted. Her repeat CBC showed hemoglobin 9.9 g, white blood cell count 17,000, and platelet count 124,000. The differential showed 70% lymphocytes, 18% neutrophils, 8% monocytes, and 1% eosinophils. Comprehensive metabolic profile was unremarkable except for slightly elevated SGOT at 46/32 U/L. LDH was just slightly elevated at 231/214 U/L. Protein electrophoresis showed an M band quantitating at 1.1 g/dL. The quantitative immunoglobulins included IgG elevated at 1464/230 mg/dL, IgG normal at 1129 mg/dL, and IgA normal at 113 mg/dL. The free light chain assay showed elevated lambda light chain at 53.3 mg/L, kappa light chain 33.8 mg/L and kappa/lambda ratio within the normal range at 0.63. A whole blood flow cytometry on 11/06/2019 showed on monotypic B-cell population which was positive for CD19, CD20, and CD22. There was dim/partial positivity to FMC7 and CD25. A subset showed surface lambda light chain restriction, but the remaining population appeared to be light chain negative. The monotypic B cells were negative for CD5, CD10, CD23, CD11c, CD103, CD123, CD200, CD38, and CD34. The phenotype was felt to be nonspecific. Staging CT scans of the chest, abdomen, and pelvis on 11/14/2019 showed prominent left axillary lymph nodes, the largest measuring 10 mm, an enlarged celiac axis lymph node measuring 11.5 mm, a prominent left periaortic lymph node measuring 7 mm, and prominent inguinal lymph nodes measuring up to 10 mm. The spleen was enlarged measuring 13.1 cm. The right hepatic lobe was noted to be enlarged, but the liver otherwise appeared normal. She underwent bone marrow aspiration/biopsy on 12/05/2019. The interpretation was limited due to the bone marrow aspirate specimens having been hemodiluted without cellular spicules. Bone marrow was noted to be hypercellular on the biopsy specimen, averaging 60 to 90% cellularity. An extensive interstitial and diffuse lymphoid infiltrate was noted to involve a high proportion of the marrow space, estimated at 70 to 80%. The lymphoid cells were noted to be small and round with clumped nuclear chromatin. There was evidence of plasmacytic differentiation. The flow cytometry showed nonspecific phenotype, similar to the whole blood specimen. Iron stores were noted to be reduced, but not absent. Overall, the findings were not definitive, but they were suggestive of lymphoplasmacytic lymphoma. 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 Ms. Kinney was advised to pursue treatment with rituximab and ibrutinib. She began her first cycle on January 13, 2020. Her other medical illnesses includehypertension, hyperlipidemia, fibromyalgia, and degenerative arthritis/degenerative disease of the spine. She has had multiple surgeries on both the cervical and lumbar spine. She reportedly was found to be positive for the Factor V Leiden mutation. She has history of smoking for 30 years, up to 2 packs of cigarettes daily. She quit smoking in 2006. She is here today for follow-up. She is due for day 8 treatment. She states she tolerated the rituximab and ibrutinib well last week. She did have an increase in Requip for leg cramps but states it is really not helping at all. She has been taking 2 of the Requip at night. Per up-to-date the max is 3 mg at at bedtime therefore will go up to 0.75 mg on the Requip and see how she does with that. She states her mouth is feeling some better but she needs refills on her mouth medicines . She states her appetite is still somewhat poor but she is still trying to eat. She states she is trying to remain active but she tires easily but recovers well with rest. She denies any fever or chills. She is had no nausea or vomiting. She states her breathing is the same. She denies any diarrhea or constipation. She denies any pain. Her ECOG is 1. Past Medical History: Cervical spinal stenosis Degenerative arthritis Degenerative disease of the spine Factor V Leiden mutation Fibromyalgia Hyperlipidemia Hypertension Past Surgical History: Bunionectomy on the right foot Cervical spine surgery x 4 section x 2 EGD and colonoscopy Facial surgery x 3 Lumbar spine surgery x 2 Multiple oral surgeries Rotator cuff repair x 2 Surgery for dislocated left hip Allergies: Cortisone Acetate, Demerol, Dilaudid, Haldol, and Morphine Sulfate. Medications: Allopurinol Tablet Oral Aspirin 1 Tablet (of 81 mg) Oral daily Atorvastatin Calcium 1 Tablet (of 10 mg) Oral at bedtime Calcium Citrate + D 1 Tablet (of 315-200 mg - Units) Oral b.i.d. Cyclobenzaprine HCl 1 - 2 Tablet (of 10 mg) Oral t.i.d. hydroCHLOROthiazide 1 Tablet (of 12.5 mg) Oral daily Meloxicam 1 Tablet (of 7.5 mg) Oral daily Metoprolol Tartrate 1 Tablet (of 50 mg) Oral b.i.d. Multivitamin Adult 1 Tablet Oral daily Vitamin C 1 Capsule (of 500 mg) Oral daily Family History: Ms. Kinney's mother at age 71: emphysema. Ms. Kinney's father at age 70: congestive heart failure, and hypertension, and myocardial infarction, and type II diabetes. Ms. Kinney has 1 brother who is alive: coronary artery disease. She has 2 sisters: 1 alive, 1 . Ms. Kinney's first sister's septic shock. Father had diabetes, coronary artery disease, and chronic kidney disease. He at age 70. Her mother had COPD and history of strokes. She at age 71. A sister with septic shock. Another sister is in good health. She has 1 brother who has coronary disease. Her daughter was found to have factor V Leiden mutation in the course of her evaluation following a stillbirth. Social History: Ms. Kinney is and she is a disabled. Ms. Kinney quit smoking 12 years ago but had smoked 2.0 packs/day for 30 years. She drinks occasionally. Ms. Kinney reports the following support systems: lives with spouse, significant other, family, or friends, lives in own house, supportive family/friends willing to assist with needs, and transportation problems exist and will require assistance. Her diet consists of regular meals. She indicates her activity level as: light exercise. She has a history of smoking for 30 years up to 2 packs of cigarettes daily. She quit smoking in 2006. She has just occasional alcohol use. Review Of Symptoms: Constitutional Denies fevers, chills, night sweats, excessive fatigue or weight loss. Allergic/Immunologic No reactions. Eyes Denies significant visual changes. No diplopia. No amaurosis. ENMT Denies changes in hearing, sore throat, mouth sores, difficulty or changes in swallowing ability, and/or sinus drainage. Endocrine No diabetes, thyroid disease or hormone replacement. Denies hot flashes or night sweats. Hematologic/Lymphatic Denies easy bruising or bleeding. The patient denies any tender or palpable lymph nodes. Respiratory Denies dyspnea on exertion, chest pain, cough or hemoptysis. Denies orthopnea. Cardiovascular Denies anginal chest pain, palpitations or orthopnea. Gastrointestinal Denies nausea, vomiting, diarrhea, GI bleeding, or constipation. Denies change in bowel habits and/or stool color, no heartburn or early satiety. Genitourinary (F) No hematuria, hesitancy, incontinence, vaginal bleeding, discharge or other problems with urination. Musculoskeletal Denies joint pain, swelling or redness. No decreased range of motion. Integumentary Denies chronic rashes, inflammation, ulcerations or skin changes. Neurologic Denies headache, blurred vision, and no areas of focal weakness or numbness. Normal gait. No sensory problems. Psychiatric Denies insomnia, depression, keshawn or mood swings. Vital Signs: Performed on January 20, 2020 10:57 Height - 59.00 in Weight - 114 lbs (LOW) BSA - 1.45 sq.m BMI - 23.03 Temperature - 97.5 F (LOW) Pulse - 87 /min Respiration - 18 /min BP - 121/73 mm(hg) O2 Sat - 95 % (LOW) Pain - 0,1 - No physically strenuous activity, but ambulatory and able to carry out light or sedentary work (e.g. office work, light house work). (ECOG) Physical Examination: Constitutional Alert, oriented, no acute distress. Skin pink, warm and dry. Head Normocephalic; atraumatic. Eyes Conjunctivae and sclerae are clear and without icterus. Pupils are reactive and equal. ENMT No oral exudates, ulcers, masses, thrush or mucositis. Oropharynx clear. Tongue normal. Neck Supple without masses or thyromegaly. No jugular venous distension. Hematologic/Lymphatic No petechiae or purpura. No tender or palpable lymph nodes in the cervical or supraclavicular areas. Respiratory Lungs are clear to auscultation without rhonchi or wheezing. Cardiovascular Regular rate and rhythm of heart without murmurs,clicks, gallops or rubs. Abdomen Non-tender, non-distended, no masses or ascites. Good bowel sounds noted in all quads. No guarding or rebound tenderness. No pulsatile masses. Back/Spine Non-tender to palpation. Extremities No visible deformities, no cyanosis, clubbing or edema. Musculoskeletal No tenderness or swelling, normal range of motion without obvious weakness. Integumentary No rashes or lesions. Neurologic No sensory or motor deficits, normal cerebellar function, normal gait. Psychiatric Alert and oriented times three. Coherent speech. Verbalizes understanding of our discussions today. Laboratory:Test performed on January 20, 2020 08:46 Sodium 138 mmol/L Potassium 4.1 mmol/L Chloride 99 mmol/L CO2 26 mmol/L Anion Gap 17.1 BUN 18 mg/dL Creatinine 1.6 mg/dL Cr Clearance (Est) 31.7800 mL/min eGFR 33.1 mL/min Glucose 86 mg/dL Calcium 9.8 mg/dL Protein, Total 7.6 g/dL Albumin 4.1 g/dL Globulin 3.5 g/dL Bilirubin, Total 0.5 mg/dL ALT (SGPT) 18 U/L AST (SGOT) 36 U/L Alkaline Phosphatase 50 IU/L WBC 9.6 10 3/uL RBC 3.05 10 6/uL HGB 8.7 g/dL HCT 28.4 % MCV 93.1 fL MCH 28.5 pg MCHC 30.6 g/dL RDW 16.4 % Platelet Count 125 10 3/cmm MPV 10.5 fL Neutrophils 3.0 10 3/uL Lymphocytes 5.1 10 3/uL Monocytes 1.2 10 3/uL Eosinophils 0.1 10 3/uL Basophils 0.1 10 3/uL Neutrophil % 31.4 % Lymphocyte % 53.4 % Monocyte % 12.6 % Eosinophil % 1.5 % Basophils % 0.9 % Test performed on January 10, 2020 11:10 CBC Slide Review Slide Review Perform SLIDE REVIEW AGREES WITH AUTO DIFF. Test performed on Dec 16, 2019 13:11 Iron 43 mcg/dL LDH (Total) 214 U/L Iron Binding Capacity (TIBC) 279 mcg/dl % Iron Saturation 15.4 % UIBC 236 mcg/dL Test performed on Oct 31, 2019 11:50 IgA 113 mg/dL IgG 1129 mg/dL IgM 1464 mg/dL [place] Free Light Chains 33.8 mg/L [place]/Lambda Free Ratio 0.63 Impression: 1. Patient with lymphoproliferative disorder with associated IgM monoclonal gammopathy. The bone marrow findings are not definitive, but the entire clinical picture is consistent with Waldenstrom's macroglobulinemia. MYD88 mutation detected. 2. She has significant peripheral neuropathy, which is suspected to related. Her other medical illnesses include: 3. Hypertension. 4. Hyperlipidemia. 5. Fibromyalgia. 6. Degenerative arthritis and degenerative disease of the spine. She has associated cervical spinal canal stenosis. 7. She was reportedly found to be positive for the Factor V Leiden mutation. Mrs. Kinney's bone marrow findings did confirm MYD88 mutation. She has been offered treatment with rituximab and ibrutinib. She began her first cycle on 01/13/2020. She is tolerating this well thus far. Plan: 1. Continue cycle 1 day 8 (week 2) Rituxan. 2. Continue ibrutinib @ 140 mg capsules three capsules daily. 3. Refill lorazepam, Famvir and Diflucan to [facility] pharmacy. 4. Increase Reqiup to .75 mg at for restless leg syndrome. 5. Today's labs were reviewed in detail and discussed with Ms Kinney and a copy was given to her. WBC 9.6, Hgb 8.7, platelets 125,000. ANC 3000. Creatinine 1.6. BUN 18, LFTs normal. 6. Followup in 1 week with CBC, CMP. Encouraged to push fluids during time beween treatments. I requested she come in for hydration but she wants to try to increase fluids at home. 7. Ms Kinney was instructed to call us in the interim if questions or problems arise. Signed By: Rosetta Victoria-, [facility] Robin Solorzano MD <<Signature on File>>
[2020-01-28 10:33] LABS: Alanine Aminotransferase 27 U/L (0-33); Albumin Level 3.9 g/dL (3.5-5.2); Alkaline Phosphatase 46 IU/L (35-105); Anion Gap 15.3 (5-19); Aspartate Amino Transferase 56 U/L (0-32); Blood Urea Nitrogen 16 mg/dL (6-20); Calcium 9.7 mg/dL (8.5-10.5); Carbon Dioxide 26 mmol/L (22-29); Chloride 93 mmol/L (98-107); Ferritin 68 ng/mL (15-150); Globulin 3.4 g/dL (1.3-4.6); Glomerular Filtration Rate 33.1 mL/min (90-130); Glucose 90 mg/dL (65-115); Iron 47 ug/dL (37-145); Magnesium 1.5 mg/dL (1.7-2.3); Osmolality Calculated 266 mOsm/kg (285-295); Percent Saturation 15.9 % (20-50); Potassium 4.3 mmol/L (3.5-5.1); Sodium 130 mmol/L (136-145); Total Bilirubin 0.5 mg/dL (0.15-1.2); Total Iron Binding Capacity 294 mcg/dl; Total Protein 7.3 g/dL (6.6-8.7); Unsaturated Iron Binding 247 ug/dL (112-347)
[2020-01-28 10:51] LABS: Basophils # 0.1 10^3/uL (0.0-0.1); Basophils % 1.2 %; Eosinophils # 0.1 10^3/uL (0.0-0.8); Eosinophils % 1.5 %; Hematocrit 27.6 % (37.0-47.0); Hemoglobin 8.7 g/dL (11.5-15.3); Lymphocytes # 2.1 10^3/uL (0.8-4.8); Lymphocytes % 31.4 %; Mean Corpuscular HGB Conc 31.5 g/dL (30.0-36.0); Mean Corpuscular Hemoglobin 29.5 pg (28.0-34.0); Mean Corpuscular Volume 93.6 fL (81-99); Monocytes # 1.1 10^3/uL (0.2-0.9); Monocytes % 16.5 %; Neutrophils # 3.3 10^3/uL (1.8-7.7); Neutrophils % 49.1 %; Nucleated Red Blood Cells % 0 %; Platelet Count 185 10^3/cmm (130-400); Red Blood Count 2.95 10^6/uL (4.1-5.3); White Blood Count 6.7 10^3/uL (4.0-10.0)
[2020-01-28] MEDS: acetaminophen 325 mg Tablet 650 MG PO (12:07)
[2020-01-28] MEDS: sodium chloride 0.9% 500 ML 75 ML IV (12:24)
[2020-01-28] MEDS: loratadine 10 mg Tablet PO (12:27)
[2020-01-28 13:16] LABS: Uric Acid 4.6 mg/dL (2.4-5.7)
[2020-01-28] MEDS: ropinirole 1 mg Tablet 0.5 MG PO (14:23)
--- NOTE | 2020-02-02 18:06 | ONC FU_ITS ---
[facility] Patient Note Patient: Yulisa Kinney Unit #: [id number]: 1960 Dictated By: Rosetta VictoriaDate of Visit: January 28, 2020 Onc MED Follow-Up/Prog Note Chief Complaint: Waldenstrom's macroglobulinemia. 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 She has been seeing Dr. Jasso in neurology for peripheral neuropathy symptoms. She had been diagnosed with bilateral carpal tunnel syndrome and lumbar radiculopathy. On 09/26/2019 she had a follow-up outpatient visit with Lucy Dean. Her laboratory studies included CBC showing hemoglobin 9.7 g and hematocrit 31.5%. The red cell indices were normal. The white blood cell count was elevated 14,900 with the differential showing 23% granulocytes, 68% lymphocytes, and 7% monocytes. The platelet count was normal at 165,000. Comprehensive metabolic profile showed borderline renal function with BUN 15 and creatinine 1.1 mg/dL. The albumin was normal at 4.2 g/dL with calculated serum globulin elevated at 4.4 g/dL. The liver enzymes were normal. Sed rate and CRP levels were normal. TSH was borderline at 4.74 ???IUl/mL. B12 was normal at 568 pg/mL. Folate was greater than 24.0 ng/mL. The serum iron studies showed slightly low transferrin saturation at 18%. Ferritin was normal at 65 ng/mL. Protein electrophoresis showed a monoclonal protein band quantitating at 1.2 g/dL. Immunofixation showed IgM lambda. Dr Solorzano had seen her initially on 10/31/2019. She was noted to have a palpable spleen, but there was no peripheral lymphadenopathy noted. Her repeat CBC showed hemoglobin 9.9 g, white blood cell count 17,000, and platelet count 124,000. The differential showed 70% lymphocytes, 18% neutrophils, 8% monocytes, and 1% eosinophils. Comprehensive metabolic profile was unremarkable except for slightly elevated SGOT at 46/32 U/L. LDH was just slightly elevated at 231/214 U/L. Protein electrophoresis showed an M band quantitating at 1.1 g/dL. The quantitative immunoglobulins included IgG elevated at 1464/230 mg/dL, IgG normal at 1129 mg/dL, and IgA normal at 113 mg/dL. The free light chain assay showed elevated lambda light chain at 53.3 mg/L, kappa light chain 33.8 mg/L and kappa/lambda ratio within the normal range at 0.63. A whole blood flow cytometry on 11/06/2019 showed on monotypic B-cell population which was positive for CD19, CD20, and CD22. There was dim/partial positivity to FMC7 and CD25. A subset showed surface lambda light chain restriction, but the remaining population appeared to be light chain negative. The monotypic B cells were negative for CD5, CD10, CD23, CD11c, CD103, CD123, CD200, CD38, and CD34. The phenotype was felt to be nonspecific. Staging CT scans of the chest, abdomen, and pelvis on 11/14/2019 showed prominent left axillary lymph nodes, the largest measuring 10 mm, an enlarged celiac axis lymph node measuring 11.5 mm, a prominent left periaortic lymph node measuring 7 mm, and prominent inguinal lymph nodes measuring up to 10 mm. The spleen was enlarged measuring 13.1 cm. The right hepatic lobe was noted to be enlarged, but the liver otherwise appeared normal. She underwent bone marrow aspiration/biopsy on 12/05/2019. The interpretation was limited due to the bone marrow aspirate specimens having been hemodiluted without cellular spicules. Bone marrow was noted to be hypercellular on the biopsy specimen, averaging 60 to 90% cellularity. An extensive interstitial and diffuse lymphoid infiltrate was noted to involve a high proportion of the marrow space, estimated at 70 to 80%. The lymphoid cells were noted to be small and round with clumped nuclear chromatin. There was evidence of plasmacytic differentiation. The flow cytometry showed nonspecific phenotype, similar to the whole blood specimen. Iron stores were noted to be reduced, but not absent. Overall, the findings were not definitive, but they were suggestive of lymphoplasmacytic lymphoma. 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 Ms. Kinney was advised to pursue treatment with rituximab and ibrutinib. She began her first cycle on January 13, 2020. Her other medical illnesses includehypertension, hyperlipidemia, fibromyalgia, and degenerative arthritis/degenerative disease of the spine. She has had multiple surgeries on both the cervical and lumbar spine. She reportedly was found to be positive for the Factor V Leiden mutation. She has history of smoking for 30 years, up to 2 packs of cigarettes daily. She quit smoking in 2006. She is here today for follow-up. She is due for day 15 treatment. She has tolerated the rituximab and ibrutinib well overall. She did have legs jitters and pain and felt anxious after [facility] premed last week. She has had an increase in Requip for leg cramps to 0.75 mg and that seems to be helping. She had had some sorenss in her mouth last week but that is feeling some better as she refilled her mouth medicines . She states her appetite is a little better this week but still not great. She denies any nausea or vomitng. She denies fever or chills. She states she feels pretty good in general. She denies any diarrhea or abdominal pain. She denies any shortness of breath or orthopnea. Her ECOG is 1. Past Medical History: Cervical spinal stenosis Degenerative arthritis Degenerative disease of the spine Factor V Leiden mutation Fibromyalgia Hyperlipidemia Hypertension Past Surgical History: Bunionectomy on the right foot Cervical spine surgery x 4 section x 2 EGD and colonoscopy Facial surgery x 3 Lumbar spine surgery x 2 Multiple oral surgeries Rotator cuff repair x 2 Surgery for dislocated left hip Allergies: Cortisone Acetate, Demerol, Dilaudid, Haldol, and Morphine Sulfate. Medications: Allopurinol 1 Tablet (of 100 mg) Oral daily Atorvastatin Calcium 1 Tablet (of 10 mg) Oral at bedtime Calcium Citrate + D 1 Tablet (of 315-200 mg - Units) Oral b.i.d. Cyclobenzaprine HCl 1 - 2 Tablet (of 10 mg) Oral t.i.d. Famciclovir 1 Tablet (of 500 mg) Oral t.i.d. Fluconazole 1 Tablet (of 100 mg) Oral daily hydroCHLOROthiazide 1 Tablet (of 12.5 mg) Oral daily LORazepam 1 - 2 Tablet (of 0.5 mg) Oral t.i.d. PRN Meloxicam 1 Tablet (of 7.5 mg) Oral daily Metoprolol Tartrate 1 Tablet (of 50 mg) Oral b.i.d. Multivitamin Adult 1 Tablet Oral daily Vitamin C 1 Capsule (of 500 mg) Oral daily Family History: Ms. Kinney's mother at age 71: emphysema. Ms. Kinney's father at age 70: congestive heart failure, and hypertension, and myocardial infarction, and type II diabetes. Ms. Kinney has 1 brother who is alive: coronary artery disease. She has 2 sisters: 1 alive, 1 . Ms. Kinney's first sister's septic shock. Father had diabetes, coronary artery disease, and chronic kidney disease. He at age 70. Her mother had COPD and history of strokes. She at age 71. A sister with septic shock. Another sister is in good health. She has 1 brother who has coronary disease. Her daughter was found to have factor V Leiden mutation in the course of her evaluation following a stillbirth. Social History: Ms. Kinney is and she is a disabled. Ms. Kinney quit smoking 12 years ago but had smoked 2.0 packs/day for 30 years. She drinks occasionally. Ms. Kinney reports the following support systems: lives with spouse, significant other, family, or friends, lives in own house, supportive family/friends willing to assist with needs, and transportation problems exist and will require assistance. Her diet consists of regular meals. She indicates her activity level as: light exercise. She has a history of smoking for 30 years up to 2 packs of cigarettes daily. She quit smoking in 2006. She has just occasional alcohol use. Review Of Symptoms: Constitutional Denies fevers, chills, night sweats, excessive fatigue or weight loss. A little weak at times but overall feels good). Allergic/Immunologic No reactions. Eyes Denies significant visual changes. No diplopia. No amaurosis. ENMT Denies changes in hearing, sore throat, mouth sores, difficulty or changes in swallowing ability, and/or sinus drainage. Endocrine No diabetes, thyroid disease or hormone replacement. Denies hot flashes or night sweats. Hematologic/Lymphatic Denies easy bruising or bleeding. The patient denies any tender or palpable lymph nodes. Respiratory Denies dyspnea on exertion, chest pain, cough or hemoptysis. Denies orthopnea. Cardiovascular Denies anginal chest pain, palpitations or orthopnea. Gastrointestinal Denies nausea, vomiting, diarrhea, GI bleeding, or constipation. Denies change in bowel habits and/or stool color, no heartburn or early satiety. Genitourinary (F) No hematuria, hesitancy, incontinence, vaginal bleeding, discharge or other problems with urination. Musculoskeletal Denies joint pain, swelling or redness. No decreased range of motion. Integumentary Denies chronic rashes, inflammation, ulcerations or skin changes. Neurologic Denies headache, blurred vision, and no areas of focal weakness or numbness. Normal gait. No sensory problems. Psychiatric Denies insomnia, depression, keshawn or mood swings. Vital Signs: Performed on January 28, 2020 11:28 Height - 59.00 in Weight - 116.0 lbs (HIGH) BSA - 1.46 sq.m BMI - 23.43 Temperature - 97.0 F (LOW) Pulse - 79 /min Respiration - 18 /min BP - 117/65 mm(hg) O2 Sat - 99 % Pain - 4,1 - No physically strenuous activity, but ambulatory and able to carry out light or sedentary work (e.g. office work, light house work). (ECOG) Physical Examination: Constitutional Alert, oriented, no acute distress. Skin pink, warm and dry. Head Normocephalic; atraumatic. Eyes Conjunctivae and sclerae are clear and without icterus. Pupils are reactive and equal. ENMT No oral exudates, ulcers, masses, thrush or mucositis. Oropharynx clear. Tongue normal. Neck Supple without masses or thyromegaly. No jugular venous distension. Hematologic/Lymphatic No petechiae or purpura. No tender or palpable lymph nodes in the cervical or supraclavicular areas. Respiratory Lungs are clear to auscultation without rhonchi or wheezing. Cardiovascular Regular rate and rhythm of heart without murmurs,clicks, gallops or rubs. Abdomen Non-tender, non-distended, no masses or ascites. Good bowel sounds noted in all quads. No guarding or rebound tenderness. No pulsatile masses. Back/Spine Non-tender to palpation. Extremities No visible deformities, no cyanosis, clubbing or edema. Musculoskeletal No tenderness or swelling, normal range of motion without obvious weakness. Integumentary No rashes or lesions. Neurologic No sensory or motor deficits, normal cerebellar function, normal gait. Psychiatric Alert and oriented times three. Coherent speech. Verbalizes understanding of our discussions today. Laboratory:Test performed on January 28, 2020 09:57 Uric Acid 4.6 mg/dL Test performed on January 28, 2020 09:51 Ferritin 68 ng/mL Iron 47 mcg/dL Magnesium 1.5 mg/dL Sodium 130 mmol/L Iron Binding Capacity (TIBC) 294 mcg/dl Potassium 4.3 mmol/L % Iron Saturation 15.9 % Chloride 93 mmol/L CO2 26 mmol/L UIBC 247 mcg/dL Anion Gap 15.3 BUN 16 mg/dL Creatinine 1.6 mg/dL Cr Clearance (Est) 31.7800 mL/min eGFR 33.1 mL/min Glucose 90 mg/dL Calcium 9.7 mg/dL Protein, Total 7.3 g/dL Albumin 3.9 g/dL Globulin 3.4 g/dL Bilirubin, Total 0.5 mg/dL ALT (SGPT) 27 U/L AST (SGOT) 56 U/L Alkaline Phosphatase 46 IU/L WBC 6.7 10 3/uL RBC 2.95 10 6/uL HGB 8.7 g/dL HCT 27.6 % MCV 93.6 fL MCH 29.5 pg MCHC 31.5 g/dL RDW 17.0 % Platelet Count 185 10 3/cmm MPV 11.0 fL Neutrophils 3.3 10 3/uL Lymphocytes 2.1 10 3/uL Monocytes 1.1 10 3/uL Eosinophils 0.1 10 3/uL Basophils 0.1 10 3/uL Neutrophil % 49.1 % Lymphocyte % 31.4 % Monocyte % 16.5 % Eosinophil % 1.5 % Basophils % 1.2 % Impression: 1. Patient with lymphoproliferative disorder with associated IgM monoclonal gammopathy. The bone marrow findings are not definitive, but the entire clinical picture is consistent with Waldenstrom's macroglobulinemia. MYD88 mutation detected. 2. She has significant peripheral neuropathy, which is suspected to related. Her other medical illnesses include: 3. Hypertension. 4. Hyperlipidemia. 5. Fibromyalgia. 6. Degenerative arthritis and degenerative disease of the spine. She has associated cervical spinal canal stenosis. 7. She was reportedly found to be positive for the Factor V Leiden mutation. Mrs. Kinney's bone marrow findings did confirm MYD88 mutation. She has been offered treatment with rituximab and ibrutinib. She began her first cycle on 01/13/2020. She is tolerating this well thus far. She has had elevation of her creatinine. We are monitoring it closely and encouraging hydration. Ibrutinib does list increased serum creatinine (1.5-3x upper limits under its renal side effects at 9%). Plan: 1. Continue cycle 1 day 15 (week 3) Rituxan. 2. Continue ibrutinib @ 140 mg capsules three capsules daily. 3. Will try Claritin instead of Benadryl for premed antihistamine due to side effects of Benadryl last treatment. 4. Continue Reqiup @ .75 mg at hs for restless leg syndrome. 5. Today's labs were reviewed in detail and discussed with Ms Kinney and a copy was given to her. WBC 6.7, Hgb 8.7, platelets 185,000. ANC 3300. Creatinine 1.6. BUN 16, ALT 27, AST 56 and alk phos 46. 6. Followup in 1 week with CBC, CMP. Encouraged to push fluids during time beween treatments. I encouraged additional hydration in the interim. She states she will call and set it up if she cannot drink enough fluids at home. 7. Ms Kinney was instructed to call us in the interim if questions or problems arise. Signed By: Rosetta Victoria-, AOCNP Robin Solorzano MD <<Signature on File>>
== END 2020-02-02 23:59 | disposition home or self-care (01) ==
LOC: ONCMED 06:46
PROVIDERS: Internal Medicine Medical Oncology; PCP Physician Assistant; Visit Provider Nurse Practitioner
DX: Z51.12 Encounter for antineoplastic immunotherapy (principal); C88.0 Waldenstrom macroglobulinemia; D47.2 Monoclonal gammopathy; G25.81 Restless legs syndrome; D64.9 Anemia, unspecified; I10 Essential (primary) hypertension; E78.5 Hyperlipidemia, unspecified; M79.7 Fibromyalgia; M48.02 Spinal stenosis, cervical region; D68.51 Activated protein C resistance; Z51.81 Encounter for therapeutic drug level monitoring; Z79.899 Other long term (current) drug therapy; Z87.891 Personal history of nicotine dependence
CPT/HCPCS: 36415; 80053; 82728; 83540; 83550; 83735; 84550; 85025; 96367; 96375; 96413; 96415; 99214; J1200; J2930; J7040; J7050; J9312

== ENCOUNTER 2020-02-03 05:49 | Outpatient (RCR) | payer MEDICARE, MEDICAID, SELFPAY ==
[2020-02-03 08:59] LABS: Basophils % 0.7 %; Eosinophils # 0.1 10^3/uL (0.0-0.8); Eosinophils % 2.1 %; Hematocrit 28.6 % (37.0-47.0); Lymphocytes # 1.7 10^3/uL (0.8-4.8); Lymphocytes % 29.8 %; Mean Corpuscular HGB Conc 31.5 g/dL (30.0-36.0); Mean Corpuscular Hemoglobin 29.3 pg (28.0-34.0); Mean Corpuscular Volume 93.2 fL (81-99); Mean Platelet Volume 10.7 fL (7.4-10.4); Monocytes % 17.9 %; Neutrophils # 2.8 10^3/uL (1.8-7.7); Neutrophils % 49.3 %; Nucleated Red Blood Cells % 0 %; Platelet Count 166 10^3/cmm (130-400); Red Blood Count 3.07 10^6/uL (4.1-5.3); Red Cell Distribution Width 16.9 % (12.1-15.1); White Blood Count 5.7 10^3/uL (4.0-10.0)
[2020-02-03 09:12] LABS: Alanine Aminotransferase 36 U/L (0-33); Albumin Level 3.6 g/dL (3.5-5.2); Alkaline Phosphatase 49 IU/L (35-105); Anion Gap 16.2 (5-19); Aspartate Amino Transferase 60 U/L (0-32); Blood Urea Nitrogen 15 mg/dL (6-20); Calcium 9.9 mg/dL (8.5-10.5); Carbon Dioxide 27 mmol/L (22-29); Chloride 95 mmol/L (98-107); Globulin 3.4 g/dL (1.3-4.6); Glomerular Filtration Rate 35.7 mL/min (90-130); Glucose 109 mg/dL (65-115); Osmolality Calculated 275 mOsm/kg (285-295); Potassium 4.2 mmol/L (3.5-5.1); Sodium 134 mmol/L (136-145); Total Bilirubin 0.5 mg/dL (0.15-1.2)
[2020-02-03] MEDS: sodium chloride 0.9% 500 ML 75 ML IV (10:55)
[2020-02-03] MEDS: acetaminophen 325 mg Tablet 650 MG PO (10:55)
--- NOTE | 2020-02-04 08:33 | ONC FU_ITS ---
Dr. Solorzano Patient Follow-Up Note Patient: Yulisa Kinney Unit #: [id number]: 1960 Dicatated By: Robin Solorzano M.D.Date of Visit:Feb 03, 2020 Onc Med Follow-up/Prog Note Chief Complaint: Waldenstrom macroglobulinemia. History of Present Illness: This is a 59 year-old woman with Waldenstrom macroglobulinemia, presenting with lymphocytosis, anemia, and splenomegly in association with IgM monoclonal gammopathy. She had been seeing Dr. Jasso in neurology for peripheral neuropathy symptoms. She had been diagnosed with bilateral carpal tunnel syndrome and lumbar radiculopathy. On 09/26/2019 she had a follow-up outpatient visit with Lucy Dean. Her laboratory studies included CBC showing hemoglobin 9.7 g and hematocrit 31.5%. The red cell indices were normal. The white blood cell count was elevated 14,900 with the differential showing 23% granulocytes, 68% lymphocytes, and 7% monocytes. The platelet count was normal at 165,000. Comprehensive metabolic profile showed borderline renal function with BUN 15 and creatinine 1.1 mg/dL. The albumin was normal at 4.2 g/dL with calculated serum globulin elevated at 4.4 g/dL. The liver enzymes were normal. Sed rate and CRP levels were normal. TSH was borderline at 4.74 ???IUl/mL. B12 was normal at 568 pg/mL. Folate was greater than 24.0 ng/mL. The serum iron studies showed slightly low transferrin saturation at 18%. Ferritin was normal at 65 ng/mL. Protein electrophoresis showed a monoclonal protein band quantitating at 1.2 g/dL. Immunofixation showed IgM lambda. I had seen her initially on 10/31/2019. She was noted to have a palpable spleen, but there was no peripheral lymphadenopathy noted. Her repeat CBC showed hemoglobin 9.9 g, white blood cell count 17,000, and platelet count 124,000. The differential showed 70% lymphocytes, 18% neutrophils, 8% monocytes, and 1% eosinophils. Comprehensive metabolic profile was unremarkable except for slightly elevated SGOT at 46/32 U/L. LDH was just slightly elevated at 231/214 U/L. Protein electrophoresis showed an M band quantitating at 1.1 g/dL. The quantitative immunoglobulins included IgG elevated at 1464/230 mg/dL, IgG normal at 1129 mg/dL, and IgA normal at 113 mg/dL. The free light chain assay showed elevated lambda light chain at 53.3 mg/L, kappa light chain 33.8 mg/L and kappa/lambda ratio within the normal range at 0.63. A whole blood flow cytometry on 11/06/2019 showed on monotypic B-cell population which was positive for CD19, CD20, and CD22. There was dim/partial positivity to FMC7 and CD25. A subset showed surface lambda light chain restriction, but the remaining population appeared to be light chain negative. The monotypic B cells were negative for CD5, CD10, CD23, CD11c, CD103, CD123, CD200, CD38, and CD34. The phenotype was felt to be nonspecific. Staging CT scans of the chest, abdomen, and pelvis on 11/14/2019 showed prominent left axillary lymph nodes, the largest measuring 10 mm, an enlarged celiac axis lymph node measuring 11.5 mm, a prominent left periaortic lymph node measuring 7 mm, and prominent inguinal lymph nodes measuring up to 10 mm. The spleen was enlarged measuring 13.1 cm. The right hepatic lobe was noted to be enlarged, but the liver otherwise appeared normal. She underwent bone marrow aspiration/biopsy on 12/05/2019. The interpretation was limited due to the bone marrow aspirate specimens having been hemodiluted without cellular spicules. Bone marrow was noted to be hypercellular on the biopsy specimen, averaging 60 to 90% cellularity. An extensive interstitial and diffuse lymphoid infiltrate was noted to involve a high proportion of the marrow space, estimated at 70 to 80%. The lymphoid cells were noted to be small and round with clumped nuclear chromatin. There was evidence of plasmacytic differentiation. The flow cytometry showed nonspecific phenotype, similar to the whole blood specimen. Iron stores were noted to be reduced, but not absent. Overall, the findings were not definitive, but they were suggestive of lymphoplasmacytic lymphoma. The MYD88 mutation was detected, consistent with Waldenstrom macroglobulinemia. Her other medical illnesses includehypertension, hyperlipidemia, fibromyalgia, and degenerative arthritis/degenerative disease of the spine. She has had multiple surgeries on both the cervical and lumbar spine. She reportedly was found to be positive for the Factor V Leiden mutation. She has history of smoking for 30 years, up to 2 packs of cigarettes daily. She quit smoking in 2006. INTERIM HISTORY: On 01/13/2020 she began a course of treatment with weekly rituximab in combination with ibrutinib 420 mg daily. She tolerated the initial infusion of rituximab without acute toxicity. She is seen for a follow-up visit. She has now completed 3 weekly infusions of rituximab. She has tolerated these well. She also appears to be having no significant adverse effects with the ibrutinib. She says her energy is still not there yet, but she is doing light work. ECOG score is 1. Her appetite is not that good, but her weight is stable. She has not had fever. She does have some night sweating. She still complains that her mouth feels like it is on fire. She has some problems swallowing, but that has been chronic. She has no shortness of breath, cough, or chest pain. She currently has no GI or complaints. She says she has pain everywhere, that is also about the same. She has been having restless leg symptoms at night. She does not complain of headache or dizziness. She has numbness/tingling in her hands and feet, and that also is about the same. Medications: Allopurinol 1 Tablet (of 100 mg) Oral daily, Atorvastatin Calcium 1 Tablet (of 10 mg) Oral at bedtime, Calcium Citrate + D 1 Tablet (of 315-200 mg - Units) Oral b.i.d., Cyclobenzaprine HCl 1 - 2 Tablet (of 10 mg) Oral t.i.d., Famciclovir 1 Tablet (of 500 mg) Oral t.i.d. PRN, Fluconazole 1 Tablet (of 100 mg) Oral daily, hydroCHLOROthiazide 1 Tablet (of 12.5 mg) Oral daily, LORazepam 1 - 2 Tablet (of 0.5 mg) Oral t.i.d. PRN, Meloxicam 1 Tablet (of 7.5 mg) Oral daily, Metoprolol Tartrate 1 Tablet (of 50 mg) Oral b.i.d., Multivitamin Adult 1 Tablet Oral daily, Vitamin C 1 Capsule (of 500 mg) Oral daily Allergies: Cortisone Acetate, Demerol, Dilaudid, Haldol, and Morphine Sulfate. Review of Systems: Constitutional - Her energy is low. She is able to do some light housework. Her appetite is poor but she is able to eat and her weight is stable. No fever or chills or hot flashes. She has some night sweats. ECOG score is 1, ENMT - She has chronic sinus congestion/drainage. Her mouth and throat are sore, no improvement with Fluconazole. She has difficulty swallowing, Hematologic/Lymphatic - She bruises easily, Respiratory - No shortness of breath. No cough. No pleuritic pain or hemoptysis, Cardiovascular - No angina pain. No palpitations, Gastrointestinal - No nausea or vomiting. No heartburn or acid reflux. No diarrhea or constipation. No blood in the stool or black stools, Genitourinary (F) - No dysuria or hematuria. No urinary frequency. No urgency or incontinence, Musculoskeletal - She has fairly generalzied arthritis pain which is managed with meloxicam, Integumentary - No skin complications, Neurologic - No headache or dizziness. She has numbness/tingling in her hands and feet. She also has restless leg symptoms at night. No other focal neurologic symptoms, Psychiatric - No anxiety or depression. She has difficulty sleeping. Vital Signs: Performed on Feb 03, 2020 09:40 Height - 59.00 in Weight - 115.0 lbs (LOW) BSA - 1.46 sq.m BMI - 23.23 Temperature - 97.5 F (LOW) Pulse - 77 /min Respiration - 20 /min BP - 113/69 mm(hg) O2 Sat - 96 % Pain - 5 Physical Examination: Constitutional - She appears somewhat weak generally, Eyes - Sclerae nonicteric. Conjunctivae clear, ENMT - There are no lesions noted in the oral cavity, Hematologic/Lymphatic - No cervical, clavicular, or axillary adenopathy, Respiratory - Lungs are clear with good air movement bilaterally, Cardiovascular - Heart rhythm is regular. There is no murmur, gallop, or rub noted, Abdomen - Soft and non-tender. Liver is not enlarged. The spleen is less prominent and is now just barely palpable on nspiration. There is no abdominal mass or ascites noted and there is no inguinal adenopathy, Extremities - No edema, Neurologic - No focal neurologic deficits noted. Lab/Imaging: Test performed on Feb 03, 2020 08:35 Sodium 134 mmol/L Potassium 4.2 mmol/L Chloride 95 mmol/L CO2 27 mmol/L Anion Gap 16.2 BUN 15 mg/dL Creatinine 1.5 mg/dL Cr Clearance (Est) 33.9000 mL/min eGFR 35.7 mL/min Glucose 109 mg/dL Calcium 9.9 mg/dL Protein, Total 7.0 g/dL Albumin 3.6 g/dL Globulin 3.4 g/dL Bilirubin, Total 0.5 mg/dL ALT (SGPT) 36 U/L AST (SGOT) 60 U/L Alkaline Phosphatase 49 IU/L WBC 5.7 10 3/uL RBC 3.07 10 6/uL HGB 9.0 g/dL HCT 28.6 % MCV 93.2 fL MCH 29.3 pg MCHC 31.5 g/dL RDW 16.9 % Platelet Count 166 10 3/cmm MPV 10.7 fL Neutrophils 2.8 10 3/uL Lymphocytes 1.7 10 3/uL Monocytes 1.0 10 3/uL Eosinophils 0.1 10 3/uL Basophils 0.0 10 3/uL Neutrophil % 49.3 % Lymphocyte % 29.8 % Monocyte % 17.9 % Eosinophil % 2.1 % Basophils % 0.7 % Impression: 1. Patient with lymphoproliferative disorder with associated IgM monoclonal gammopathy. 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 The MYD88 mutation was detected, consistent with Waldenstr???m macroglobulinemia. 2. She has significant peripheral neuropathy, which I suspect is related. Her other medical illnesses include: 3. Hypertension. 4. Hyperlipidemia. 5. Fibromyalgia. 6. Degenerative arthritis and degenerative disease of the spine. She has associated cervical spinal canal stenosis. 7. She was reportedly found to be positive for the Factor V Leiden mutation. On 01/13/2020 she began a course of treatment with weekly rituximab in combination with ibrutinib 420 mg daily. She has now completed 3 weekly infusions of rituximab. During treatment there has been some decline in her renal function, but it now does appear to have stabilized. She has otherwise been tolerating it well. She does appear to be showing some response with decreased lymphocytosis and improvement in splenomegaly. She remains moderately anemic. Plan: She will continue with her week 4 rituximab at 375 mg/m??? by IV infusion. She will be due for a second 4-week course of rituximab beginning at week 17. Until then, she continues ibrutinib 420 mg daily. She will be seen for a follow-up visit in 1 month. In the meantime, she will be given a prescription for ropinirole 0.25 mg at bedtime for the restless leg symptoms. Due to the decline in her renal function, she also is advised to stop meloxicam. Signed By: Robin Solorzano M.D. <<Signature on File>>
== END 2020-02-03 23:59 | disposition home or self-care (01) ==
LOC: ONCMED 05:49
PROVIDERS: PCP Physician Assistant; Visit Provider Internal Medicine Medical Oncology
DX: Z51.12 Encounter for antineoplastic immunotherapy (principal); C88.0 Waldenstrom macroglobulinemia; G25.81 Restless legs syndrome; G62.9 Polyneuropathy, unspecified; R94.4 Abnormal results of kidney function studies; I10 Essential (primary) hypertension; E78.5 Hyperlipidemia, unspecified; M79.7 Fibromyalgia; M19.90 Unspecified osteoarthritis, unspecified site; M47.9 Spondylosis, unspecified; M48.02 Spinal stenosis, cervical region; D68.51 Activated protein C resistance; Z79.899 Other long term (current) drug therapy
CPT/HCPCS: 80053; 85025; 96413; 96415; 99214; J7040; J9312

== ENCOUNTER 2020-02-26 07:20 | Inpatient (IN) | payer MEDICARE, MEDICAID, SELFPAY ==
[2020-02-26] VITALS (9 sets, daily range): BP systolic 69–145; BP diastolic 33–85; PULSE 76–96; RESP 18–22; TEMP 36.3–37.6; O2SAT 93–99; BMI 22.2
--- NOTE | 2020-02-26 07:33 | CT_ITS ---
WS: [id number] CT HEAD NONCONTRAST HISTORY: injury TECHNIQUE: Contiguous axial imaging performed through the brain in 2.5 mm imaging. Bone and soft tiss ue windows. Sagittal and coronal reformats reviewed. All CT scans at [facility] use at le ast one of these dose optimization techniques: automated exposure control; mA and/or kV adjustment pe r patient size (includes targeted exams where dose is matched to clinical indication); or iterative r econstruction. DLP: 756.13 mGy.cm COMPARISON: None available. No acute intracranial hemorrhage, midline shift or mass effect. No atrophy or prior infarcts or herniation. Ventricles: Normal size with no hydrocephalus. Moderate atherosclerosis intracranial carotid arteries. Paranasal sinuses: As visualized are clear. Mastoid air cells: Well pneumatized. Calvarium and scalp: No skull fracture. There is a large amount of soft tissue edema and hematoma jessica tered over the posterior RIGHT parietal region. There is air in the soft tissue consistent with lacer ation. CT/CT head wo con* [id number] IMPRESSION: 1. No acute intracranial hemorrhage or edema. 2. Extensive soft tissue laceration and hematoma centered over the RIGHT parie vilma bone.
--- NOTE | 2020-02-26 07:33 | CT_ITS ---
WS: [id number] CT CERVICAL SPINE HISTORY: injury, fall TECHNIQUE: Contiguous 2.5 mm axial imaging performed through the entire cervical spine. Sagittal and coronal reformats also performed. All CT scans at [facility] use at least one of these do se optimization techniques: automated exposure control; mA and/or kV adjustment per patient size (inc ludes targeted exams where dose is matched to clinical indication); or iterative reconstruction. DLP: 334.61 mGy.cm COMPARISON: None available. Increase in the cervical lordosis centered at the C3-4 level. Extensive prior anterior and posterior cervical fusion hardware. Posterior fusion extends from C2 to C6. Vertical rods and pedicle screws ar e intact. Anterior cervical fusion with interbody spacer at C3-4. C3 anterolisthesis of 3.8 mm. There is an interbody spacer at C4-5. Severe degenerative disc space narrowing at C6-7. Craniocervical sissy ction is normal. No acute fractures are identified. C2-C3: Large posterior laminectomy defect. C3-C4: Large posterior laminectomy defects with facet arthritis. Moderate LEFT foraminal stenosis. C4-C5: Large posterior laminectomy defect. Mild bilateral foraminal stenosis. C5-C6: Normal. C6-C7: Normal. C7-T1: Normal. Lung apices are clear. CT/CT cervical spin wo con* [id number] IMPRESSION: 1. No acute cervical spine fracture identified. 2. Extensive anterior and posterior cervical fusion. Hardware is intact. 3. C3 anterolisthesis by 3.8 mm. 4. No prior similar studies for comparison.
--- NOTE | 2020-02-26 07:34 | ED_ITS ---
Documented by User: FARRAH Reyes 02/26/20 09:32 HPI - Head Injury General: Chief complaint: Head Injury Stated complaint: HEAD PAIN POST FALL Time Seen by Provider: 02/26/20 07:33 History of Present Illness: HPI Narrative: Patient was brought in by ambulance for falling at home. Patient was in the back of her pickup getting medication when she slipped and fell and hit her head against the tailgate of the truck. Patient reports may be a brief loss of consciousness. Patient is alert and talking at this time with complaints of headache. Patient has a history of lymphoma. MD Complaint: head injury Review of Systems General: Reports: 10 or more systems reviewed and unremarkable except in HPI and below Skin/Breast: Reports: other (Scalp laceration) Neuro: Reports: headache(s) [facility] ED PFSH: Medical History Anxiety Degenerative arthritis Fibromyalgia Hyperlipidemia Hypertension Hypothyroidism IgM monoclonal gammopathy of uncertain significance Restless leg syndrome Waldenstrom macroglobulinemia Surgical History History of cervical spinal surgery History of section, low transverse X2 History of facial surgery Following trauma, x3 History of lumbar surgery History of shoulder surgery Right x2 Social History Smoking and tobacco status: former smoker Alcohol intake: current Alcohol intake frequency: few times a week Marital status: Physical Exam Const: COMMON NORMALS: no acute distress and patient oriented x3 GENERAL APPEARANCE: cooperative HENMT: COMMON NORMALS: Normal external nose present HEAD & SCALP: laceration (Laceration to the right parietal/occipital area, horizontal in nature and approximately . Surrounding tissue is contused.) NOSE: Normal external nose present MOUTH: Normal oral and palatal mucosa present Eye: GENERAL EYE: appearance normal, both eyes and all related structures Neck/C-Spine: OTHER: Immobilized by hard c-collar Chest: COMMONS NORMALS: normal inspection of the chest Resp: COMMON NORMALS: normal respiratory effort EFFORT & INSPECTION: Yes able to speak in complete sentences Cardio: COMMON NORMALS: regular rate and regular rhythm RATE: regular rate RHYTHM: regular rhythm GI: COMMON NORMALS: non-tender : COMMON NORMALS: Yes no CVA tenderness BLADDER/KIDNEY EXAM: Yes no CVA tenderness Back/Pelvis: COMMON NORMALS: no CVA tenderness and thoracic and lumbar spine normal to inspection Extremity: COMMON NORMALS: normal to inspection Neuro: COMMON NORMALS: patient oriented x3 and moves all extremities Psych: COMMON NORMALS: mental status grossly normal and cooperative Skin: COMMON NORMALS: no rashes or lesions noted GENERAL SKIN EXAM: no rashes or lesions noted Procedures Laceration Laceration 1: Site: scalp Side (If applicable): right Size (cm): 3 Description: linear Depth: simple, single layer Local Anesthetic: lidocaine 1% and with epi Amount of anesthesia used (mL): 5 Pre-repair: wound explored Skin layer closed with: other (Paxton) Number of sutures: 6 Technique: simple, interrupted Course ED course: 0 825, patient's potassium is 2.5 and sodium is 122. Reviewed with patient. Patient denies any nausea vomiting diarrhea, patient does use chemotherapy medications for her lymphoma. Dr. Solorzano is her oncologist. Dr. Dean is her primary care. Patient does have a history of spinal stenosis and hypertension. Patient did admit to drinking at least 2 drinks a day of alcoholic beverages. Reviewed with Dr. Santamaria who agreed that patient probably needs admission for electrolyte imbalance correction. 09, scalp laceration repaired with 6 tyler, patient also mentioned that she had a toenail infection in her great toe on her left foot. On evaluation of the toenail notes a healing paronychia. Nail is loose at the base. Minimal redness and swelling though is noted. Some dried drainage is noted at the base. Patient reports that the toenail had been worse but has started improving over the last day or 2. Vital Signs: Vital signs: Vital Signs Temperature 97.8 F 02/28/20 17:50 Pulse Rate 93 02/28/20 17:50 Respiratory Rate 16 02/28/20 17:50 Blood Pressure 114/68 02/28/20 17:50 Pulse Oximetry 92 02/28/20 17:50 MDM - Head Injury MDM Narrative: Medical decision making narrative: Patient comes in today for concerns of injury sustained from a fall while getting medications on the back for pickup. Patient reports slipping in the pickup and hit in the back of her head against the tailgate. Patient responded appropriately to conversation, patient complained of headache. Respirations were even lungs are clear to au scultation. Hematoma was noted to the occipital area of scalp. Tenderness was noted in the neck. Differential diagnosis includes intracranial bleeding, cervical spine fracture, laceration, scalp hematoma, adverse effects of medications, alcoholism, electrolyte disturbance. Laboratory values noted a sodium of 122 and potassium of 2.5. Hemoglobin hematocrit were 9.7 and 30. This was reviewed with Dr. Santamaria who agreed that patient would need admission for correction of electrolyte imbalance and monitoring for deterioration of condition. Lab Data: Labs: Lab Results 02/26/20 02/26/20 02/26/20 Range/Units 07:45 07:45 07:45 WBC 4.5 (4.0-10.0) 10^3/ uL RBC 3.27 L (4.1-5.3) 10^6/u L Hgb 9.7 L (11.5-15.3) g/dL Hct 30.0 L (37.0-47.0) % MCV 91.7 (81-99) fL MCH 29.7 (28.0-34.0) pg MCHC 32.3 (30.0-36.0) g/dL RDW 15.7 H (12.1-15.1) % Plt Count 170 (130-400) 10^3/c mm MPV 11.4 H (7.4-10.4) fL Neut % (Auto) 46.6 % Lymph % (Auto) 19.4 % Shasta % (Auto) 31.3 % Eos % (Auto) 0.7 % Baso % (Auto) 1.8 % Neut # (Auto) 2.1 (1.8-7.7) 10^3/u L Lymph # (Auto) 0.9 (0.8-4.8) 10^3/u L Shasta # (Auto) 1.4 H (0.2-0.9) 10^3/u L Eos # (Auto) 0.0 (0.0-0.8) 10^3/u L Baso # (Auto) 0.1 (0.0-0.1) 10^3/u L Nucleated RBC % (a uto) 0 % Nucleated RBCs # 0.0 /100WBC PT 12.80 (10.5-13.3) SECO NDS INR 0.94 (0.8-1.2) Sodium 122 L (136-145) mmol/L Potassium 2.5 L* (3.5-5.1) mmol/L Chloride 84 L (98-107) mmol/L Carbon Dioxide 25 (22-29) mmol/L Anion Gap 15.5 (5-19) BUN 10 (6-20) mg/dL Creatinine 0.9 (0.5-0.9) mg/dL GFR Calculation 64.3 L (90-130) mL/min Glucose 84 (65-115) mg/dL Calculated Osmolal ity 249 L (285-295) mOsm/k g Calcium 9.0 (8.5-10.5) mg/dL Phosphorus (2.5-4.5) mg/dL Magnesium (1.7-2.3) mg/dL Total Bilirubin (0.15-1.2) mg/dL AST (0-32) U/L ALT (0-33) U/L Alkaline Phosphata se (35-105) IU/L Total Protein (6.6-8.7) g/dL Albumin (3.5-5.2) g/dL Globulin (1.3-4.6) g/dL TSH (0.27-4.20) uIU/ mL Free T3 (2.0-4.4) PG/ML Urine Color (Yellow) Urine Appearance (CLEAR) Urine pH (5-7) Ur Specific Gravit y (1.005-1.030) Urine Protein (Negative) Urine Glucose (UA) (Normal) Urine Ketones (Negative) Urine Blood (Negative) Urine Nitrate (Negative) Urine Bilirubin (NEGATIVE) Urine Urobilinogen (Negative) mg/dL Ur Leukocyte Mayra ase (Negative) 02/26/20 02/26/20 02/26/20 Range/Units 07:45 09:16 12:33 WBC (4.0-10.0) 10^3/ uL RBC (4.1-5.3) 10^6/u L Hgb (11.5-15.3) g/dL Hct (37.0-47.0) % MCV (81-99) fL MCH (28.0-34.0) pg MCHC (30.0-36.0) g/dL RDW (12.1-15.1) % Plt Count (130-400) 10^3/c mm MPV (7.4-10.4) fL Neut % (Auto) % Lymph % (Auto) % Shasta % (Auto) % Eos % (Auto) % Baso % (Auto) % Neut # (Auto) (1.8-7.7) 10^3/u L Lymph # (Auto) (0.8-4.8) 10^3/u L [place] # (Auto) (0.2-0.9) 10^3/u L Eos # (Auto) (0.0-0.8) 10^3/u L Baso # (Auto) (0.0-0.1) 10^3/u L Nucleated RBC % (a uto) % Nucleated RBCs # /100WBC PT (10.5-13.3) SECO NDS INR (0.8-1.2) Sodium 128 L (136-145) mmol/L Potassium (3.5-5.1) mmol/L Chloride (98-107) mmol/L Carbon Dioxide (22-29) mmol/L Anion Gap (5-19) BUN (6-20) mg/dL Creatinine (0.5-0.9) mg/dL GFR Calculation (90-130) mL/min Glucose (65-115) mg/dL Calculated Osmolal ity (285-295) mOsm/k g Calcium (8.5-10.5) mg/dL Phosphorus 3.9 (2.5-4.5) mg/dL Magnesium 1.2 L (1.7-2.3) mg/dL Total Bilirubin (0.15-1.2) mg/dL AST (0-32) U/L ALT (0-33) U/L Alkaline Phosphata se (35-105) IU/L Total Protein (6.6-8.7) g/dL Albumin (3.5-5.2) g/dL Globulin (1.3-4.6) g/dL TSH 4.45 H (0.27-4.20) uIU/ mL Free T3 (2.0-4.4) PG/ML Urine Color Straw (Yellow) Urine Appearance Clear (CLEAR) Urine pH 7 (5-7) Ur Specific Gravit y 1.005 (1.005-1.030) Urine Protein Neg (Negative) Urine Glucose (UA) Norm (Normal) Urine Ketones Negative (Negative) Urine Blood Neg (Negative) Urine Nitrate Negative (Negative) Urine Bilirubin Neg (NEGATIVE) Urine Urobilinogen Norm (Negative) mg/dL Ur Leukocyte Mayra ase Negative (Negative) 02/26/20 02/26/20 02/26/20 Range/Units 12:33 16:11 20:03 WBC (4.0-10.0) 10^3/ uL RBC (4.1-5.3) 10^6/u L Hgb (11.5-15.3) g/dL Hct (37.0-47.0) % MCV (81-99) fL MCH (28.0-34.0) pg MCHC (30.0-36.0) g/dL RDW (12.1-15.1) % Plt Count (130-400) 10^3/c mm MPV (7.4-10.4) fL Neut % (Auto) % Lymph % (Auto) % Shasta % (Auto) % Eos % (Auto) % Baso % (Auto) % Neut # (Auto) (1.8-7.7) 10^3/u L Lymph # (Auto) (0.8-4.8) 10^3/u L [place]asta # (Auto) (0.2-0.9) 10^3/u L Eos # (Auto) (0.0-0.8) 10^3/u L Baso # (Auto) (0.0-0.1) 10^3/u L Nucleated RBC % (a uto) % Nucleated RBCs # /100WBC PT (10.5-13.3) SECO NDS INR (0.8-1.2) Sodium 129 L 130 L (136-145) mmol/L Potassium 3.3 L (3.5-5.1) mmol/L Chloride (98-107) mmol/L Carbon Dioxide (22-29) mmol/L Anion Gap (5-19) BUN (6-20) mg/dL Creatinine (0.5-0.9) mg/dL GFR Calculation (90-130) mL/min Glucose (65-115) mg/dL Calculated Osmolal ity (285-295) mOsm/k g Calcium (8.5-10.5) mg/dL Phosphorus (2.5-4.5) mg/dL Magnesium (1.7-2.3) mg/dL Total Bilirubin (0.15-1.2) mg/dL AST (0-32) U/L ALT (0-33) U/L Alkaline Phosphata se (35-105) IU/L Total Protein (6.6-8.7) g/dL Albumin (3.5-5.2) g/dL Globulin (1.3-4.6) g/dL TSH (0.27-4.20) uIU/ mL Free T3 1.6 L (2.0-4.4) PG/ML Urine Color (Yellow) Urine Appearance (CLEAR) Urine pH (5-7) Ur Specific Gravit y (1.005-1.030) Urine Protein (Negative) Urine Glucose (UA) (Normal) Urine Ketones (Negative) Urine Blood (Negative) Urine Nitrate (Negative) Urine Bilirubin (NEGATIVE) Urine Urobilinogen (Negative) mg/dL Ur Leukocyte Mayra ase (Negative) 02/27/20 02/27/20 02/27/20 Range/Units 00:27 04:50 04:50 WBC 3.8 L (4.0-10.0) 10^3/ uL RBC 3.18 L (4.1-5.3) 10^6/u L Hgb 9.4 L (11.5-15.3) g/dL Hct 29.1 L (37.0-47.0) % MCV 91.5 (81-99) fL MCH 29.6 (28.0-34.0) pg MCHC 32.3 (30.0-36.0) g/dL RDW 15.9 H (12.1-15.1) % Plt Count 171 (130-400) 10^3/c mm MPV 12.2 H (7.4-10.4) fL Neut % (Auto) 42.4 % Lymph % (Auto) 25.3 % Shasta % (Auto) 30.9 % Eos % (Auto) 0.0 % Baso % (Auto) 1.1 % Neut # (Auto) 1.6 L (1.8-7.7) 10^3/u L Lymph # (Auto) 1.0 (0.8-4.8) 10^3/u L Shasta # (Auto) 1.2 H (0.2-0.9) 10^3/u L Eos # (Auto) 0.0 (0.0-0.8) 10^3/u L Baso # (Auto) 0.0 (0.0-0.1) 10^3/u L Nucleated RBC % (a uto) 0 % Nucleated RBCs # 0.0 /100WBC PT (10.5-13.3) SECO NDS INR (0.8-1.2) Sodium 127 L 130 L (136-145) mmol/L Potassium 4.0 (3.5-5.1) mmol/L Chloride 96 L (98-107) mmol/L Carbon Dioxide 21 L (22-29) mmol/L Anion Gap 17.0 (5-19) BUN 11 (6-20) mg/dL Creatinine 0.8 (0.5-0.9) mg/dL GFR Calculation 73.7 L (90-130) mL/min Glucose 145 H (65-115) mg/dL Calculated Osmolal ity 269 L (285-295) mOsm/k g Calcium 8.3 L (8.5-10.5) mg/dL Phosphorus (2.5-4.5) mg/dL Magnesium (1.7-2.3) mg/dL Total Bilirubin 0.4 (0.15-1.2) mg/dL AST 130 H (0-32) U/L ALT 72 H (0-33) U/L Alkaline Phosphata se 75 (35-105) IU/L Total Protein 5.8 L (6.6-8.7) g/dL Albumin 3.6 (3.5-5.2) g/dL Globulin 2.2 (1.3-4.6) g/dL TSH (0.27-4.20) uIU/ mL Free T3 (2.0-4.4) PG/ML Urine Color (Yellow) Urine Appearance (CLEAR) Urine pH (5-7) Ur Specific Gravit y (1.005-1.030) Urine Protein (Negative) Urine Glucose (UA) (Normal) Urine Ketones (Negative) Urine Blood (Negative) Urine Nitrate (Negative) Urine Bilirubin (NEGATIVE) Urine Urobilinogen (Negative) mg/dL Ur Leukocyte Mayra ase (Negative) Discharge Plan Discharge Patient Disposition: Placed in Observation Admit Provider: Jana Black Clinical Impression: Concussion without loss of consciousness, Hypertension, Hypokalemia, Hyponatremia, Laceration of head Condition: Stable Referrals: [facility] [Outside] (Called [facility] and informed them of your discharge. They will get ahold of you.) Lucy Dean PA [Primary Care Provider] - 03/03/20 9:30 am (You have an hospital follow up appointment with Lucy Dean on March 03 at 9:30) Robin Solorzano MD [Hospitalist] - 1 month (Faxed face sheet and information to the clinic. They will get with you with an appointment and time. ) Patient Instructions: Metoprolol (By mouth), Levothyroxine (By mouth), Thiamine (Vitamin B-1) (By mouth), Folic Acid (By mouth), Fibromyalgia (DC), Generalized Anxiety Disorder (DC), Staple Care (DC), Restless Legs Syndrome (DC), Stitches and Paxton Care Additional Instructions: Discharge to home with home health services Medications have been changed during your hospital stay. Hydrochlorothiazide has been discontinued, please stop taking this medication. This was discontinued due to low sodium and low potassium. Metoprolol has been decreased to 12.5 mg twice daily You were noted to have low thyroid function, therefore levothyroxine was started at 50 mcg daily. Would recommend having your thyroid function rechecked in 3 to 4 weeks Follow-up with primary care provider in 2 to 5 days with recheck blood work at that time, basic metabolic panel. Follow-up with primary care provider for staple removal when indicated Strongly encourage cessation from alcohol Continue with home health services including physical therapy and Occupational Therapy Call your physician or present to the ED for any acute illness or concern Discharge Date/Time: 02/26/20 10:53 Coding Level of Care Code ED Insemination Worker for Chg Fwd Exam Comprehensive Documented by User: Emerson Santamaria DO 03/03/20 06:24 HPI - Head Injury General: Chief complaint: Head Injury Stated complaint: HEAD PAIN POST FALL Time Seen by Provider: 02/26/20 07:33 History of Present Illness: HPI Narrative: Patient initially seen by midlevel care turned over myself his notes are reviewed. MD Complaint: head injury Onset (ago): hour(s) Arrival Conditions: C-spine immobilization present Mechanism of Injury: fall Place: home Loss of Consciousness: unsure Location of injury: occipital Severity: moderate Radiation: none Other Injuries: none PFSH ED PFSH: Medical History Anxiety Degenerative arthritis Fibromyalgia Hyperlipidemia Hypertension Hypothyroidism IgM monoclonal gammopathy of uncertain significance Restless leg syndrome Waldenstrom macroglobulinemia Surgical History History of cervical spinal surgery History of section, low transverse X2 History of facial surgery Following trauma, x3 History of lumbar surgery History of shoulder surgery Right x2 Social History Smoking and tobacco status: former smoker Alcohol intake: current Alcohol intake frequency: few times a week Marital status: Physical Exam Const: COMMON NORMALS: no acute distress GENERAL APPEARANCE: cooperative and comfortable ORIENTATION/CONSCIOUSNESS: Yes awake, Yes oriented to person, Yes oriented to place and Yes oriented to time HENMT: COMMON NORMALS: normocephalic, hearing grossly normal bilaterally, external ears normal, EAC's normal, TM's normal bilaterally, Normal nasal mucous membranes and turbinates present, moist oral mucous membranes and oropharynx normal HEAD & SCALP: normocephalic NOSE: Normal nasal mucous membranes and turbinates present EXTERNAL EAR: Yes external ears normal EXTERNAL AUDITORY CANAL: EAC's normal TYMPANIC MEMBRANE: TM's normal bilaterally OTHER: Occipital scalp laceration closed with tyler Eye: COMMON NORMALS: Equal, round and reactive pupils present, EOMs intact bilaterally, conjunctivae normal and no scleral icterus CONJUNCTIVA: Yes conjunctivae normal PUPIL: Yes Equal, round and reactive pupils present Neck/C-Spine: COMMON NORMALS: full ROM, no lymphadenopathy, supple and no JVD Lymph: LYMPHATIC: no lymphadenopathy noted and no lymphedema noted Resp: COMMON NORMALS: normal respiratory effort, No retractions, No use of accessory muscles and clear to auscultation bilaterally AUSCULTATION: clear to auscultation bilaterally Cardio: COMMON NORMALS: no JVD, regular rate, regular rhythm and No murmurs present (Cardio) RATE: regular rate RHYTHM: regular rhythm GI: COMMON NORMALS: Soft to palpation and No hepatosplenomegaly present AUSCULTATION: Yes normoactive bowel sounds PALPATION: Yes Soft to palpation, No Tenderness to palpation present (GI), No Guarding due to palpation present (GI) and Yes No hepatosplenomegaly present Extremity: COMMON NORMALS: normal to inspection, capillary refill normal, no clubbing, cyanosis or edema, no calf tenderness and no pedal edema Neuro: SENSORIUM/ORIENTATION: Yes oriented to person, Yes oriented to place and Yes oriented to time Skin: COMMON NORMALS: no rashes or lesions noted GENERAL SKIN EXAM: no rashes or lesions noted Course Vital Signs: Vital signs: Vital Signs Temperature 97.8 F 02/28/20 17:50 Pulse Rate 93 02/28/20 17:50 Respiratory Rate 16 02/28/20 17:50 Blood Pressure 114/68 02/28/20 17:50 Pulse Oximetry 92 02/28/20 17:50 MDM - Head Injury MDM Narrative: Medical decision making narrative: Patient seen and evaluated with her electrolyte abnormalities and fall she will need medication adjustment recommend observation discussed Dr. Black she will take her on her service. Lab Data: Labs: Lab Results 02/26/20 02/26/20 02/26/20 Range/Units 07:45 07:45 07:45 WBC 4.5 (4.0-10.0) 10^3/ uL RBC 3.27 L (4.1-5.3) 10^6/u L Hgb 9.7 L (11.5-15.3) g/dL Hct 30.0 L (37.0-47.0) % MCV 91.7 (81-99) fL MCH 29.7 (28.0-34.0) pg MCHC 32.3 (30.0-36.0) g/dL RDW 15.7 H (12.1-15.1) % Plt Count 170 (130-400) 10^3/c mm MPV 11.4 H (7.4-10.4) fL Neut % (Auto) 46.6 % Lymph % (Auto) 19.4 % [place]asta % (Auto) 31.3 % Eos % (Auto) 0.7 % Baso % (Auto) 1.8 % Neut # (Auto) 2.1 (1.8-7.7) 10^3/u L Lymph # (Auto) 0.9 (0.8-4.8) 10^3/u L [place]asta # (Auto) 1.4 H (0.2-0.9) 10^3/u L Eos # (Auto) 0.0 (0.0-0.8) 10^3/u L Baso # (Auto) 0.1 (0.0-0.1) 10^3/u L Nucleated RBC % (a uto) 0 % Nucleated RBCs # 0.0 /100WBC PT 12.80 (10.5-13.3) SECO NDS INR 0.94 (0.8-1.2) Sodium 122 L (136-145) mmol/L Potassium 2.5 L* (3.5-5.1) mmol/L Chloride 84 L (98-107) mmol/L Carbon Dioxide 25 (22-29) mmol/L Anion Gap 15.5 (5-19) BUN 10 (6-20) mg/dL Creatinine 0.9 (0.5-0.9) mg/dL GFR Calculation 64.3 L (90-130) mL/min Glucose 84 (65-115) mg/dL Calculated Osmolal ity 249 L (285-295) mOsm/k g Calcium 9.0 (8.5-10.5) mg/dL Phosphorus (2.5-4.5) mg/dL Magnesium (1.7-2.3) mg/dL Total Bilirubin (0.15-1.2) mg/dL AST (0-32) U/L ALT (0-33) U/L Alkaline Phosphata se (35-105) IU/L Total Protein (6.6-8.7) g/dL Albumin (3.5-5.2) g/dL Globulin (1.3-4.6) g/dL TSH (0.27-4.20) uIU/ mL Free T3 (2.0-4.4) PG/ML Urine Color (Yellow) Urine Appearance (CLEAR) Urine pH (5-7) Ur Specific Gravit y (1.005-1.030) Urine Protein (Negative) Urine Glucose (UA) (Normal) Urine Ketones (Negative) Urine Blood (Negative) Urine Nitrate (Negative) Urine Bilirubin (NEGATIVE) Urine Urobilinogen (Negative) mg/dL Ur Leukocyte Mayra ase (Negative) 02/26/20 02/26/20 02/26/20 Range/Units 07:45 09:16 12:33 WBC (4.0-10.0) 10^3/ uL RBC (4.1-5.3) 10^6/u L Hgb (11.5-15.3) g/dL Hct (37.0-47.0) % MCV (81-99) fL MCH (28.0-34.0) pg MCHC (30.0-36.0) g/dL RDW (12.1-15.1) % Plt Count (130-400) 10^3/c mm MPV (7.4-10.4) fL Neut % (Auto) % Lymph % (Auto) % [place] % (Auto) % Eos % (Auto) % Baso % (Auto) % Neut # (Auto) (1.8-7.7) 10^3/u L Lymph # (Auto) (0.8-4.8) 10^3/u L [place] # (Auto) (0.2-0.9) 10^3/u L Eos # (Auto) (0.0-0.8) 10^3/u L Baso # (Auto) (0.0-0.1) 10^3/u L Nucleated RBC % (a uto) % Nucleated RBCs # /100WBC PT (10.5-13.3) SECO NDS INR (0.8-1.2) Sodium 128 L (136-145) mmol/L Potassium (3.5-5.1) mmol/L Chloride (98-107) mmol/L Carbon Dioxide (22-29) mmol/L Anion Gap (5-19) BUN (6-20) mg/dL Creatinine (0.5-0.9) mg/dL GFR Calculation (90-130) mL/min Glucose (65-115) mg/dL Calculated Osmolal ity (285-295) mOsm/k g Calcium (8.5-10.5) mg/dL Phosphorus 3.9 (2.5-4.5) mg/dL Magnesium 1.2 L (1.7-2.3) mg/dL Total Bilirubin (0.15-1.2) mg/dL AST (0-32) U/L ALT (0-33) U/L Alkaline Phosphata se (35-105) IU/L Total Protein (6.6-8.7) g/dL Albumin (3.5-5.2) g/dL Globulin (1.3-4.6) g/dL TSH 4.45 H (0.27-4.20) uIU/ mL Free T3 (2.0-4.4) PG/ML Urine Color Straw (Yellow) Urine Appearance Clear (CLEAR) Urine pH 7 (5-7) Ur Specific Gravit y 1.005 (1.005-1.030) Urine Protein Neg (Negative) Urine Glucose (UA) Norm (Normal) Urine Ketones Negative (Negative) Urine Blood Neg (Negative) Urine Nitrate Negative (Negative) Urine Bilirubin Neg (NEGATIVE) Urine Urobilinogen Norm (Negative) mg/dL Ur Leukocyte Mayra ase Negative (Negative) 02/26/20 02/26/20 02/26/20 Range/Units 12:33 16:11 20:03 WBC (4.0-10.0) 10^3/ uL RBC (4.1-5.3) 10^6/u L Hgb (11.5-15.3) g/dL Hct (37.0-47.0) % MCV (81-99) fL MCH (28.0-34.0) pg MCHC (30.0-36.0) g/dL RDW (12.1-15.1) % Plt Count (130-400) 10^3/c mm MPV (7.4-10.4) fL Neut % (Auto) % Lymph % (Auto) % [place] % (Auto) % Eos % (Auto) % Baso % (Auto) % Neut # (Auto) (1.8-7.7) 10^3/u L Lymph # (Auto) (0.8-4.8) 10^3/u L [place] # (Auto) (0.2-0.9) 10^3/u L Eos # (Auto) (0.0-0.8) 10^3/u L Baso # (Auto) (0.0-0.1) 10^3/u L Nucleated RBC % (a uto) % Nucleated RBCs # /100WBC PT (10.5-13.3) SECO NDS INR (0.8-1.2) Sodium 129 L 130 L (136-145) mmol/L Potassium 3.3 L (3.5-5.1) mmol/L Chloride (98-107) mmol/L Carbon Dioxide (22-29) mmol/L Anion Gap (5-19) BUN (6-20) mg/dL Creatinine (0.5-0.9) mg/dL GFR Calculation (90-130) mL/min Glucose (65-115) mg/dL Calculated Osmolal ity (285-295) mOsm/k g Calcium (8.5-10.5) mg/dL Phosphorus (2.5-4.5) mg/dL Magnesium (1.7-2.3) mg/dL Total Bilirubin (0.15-1.2) mg/dL AST (0-32) U/L ALT (0-33) U/L Alkaline Phosphata se (35-105) IU/L Total Protein (6.6-8.7) g/dL Albumin (3.5-5.2) g/dL Globulin (1.3-4.6) g/dL TSH (0.27-4.20) uIU/ mL Free T3 1.6 L (2.0-4.4) PG/ML Urine Color (Yellow) Urine Appearance (CLEAR) Urine pH (5-7) Ur Specific Gravit y (1.005-1.030) Urine Protein (Negative) Urine Glucose (UA) (Normal) Urine Ketones (Negative) Urine Blood (Negative) Urine Nitrate (Negative) Urine Bilirubin (NEGATIVE) Urine Urobilinogen (Negative) mg/dL Ur Leukocyte Mayra ase (Negative) 02/27/20 02/27/20 02/27/20 Range/Units 00:27 04:50 04:50 WBC 3.8 L (4.0-10.0) 10^3/ uL RBC 3.18 L (4.1-5.3) 10^6/u L Hgb 9.4 L (11.5-15.3) g/dL Hct 29.1 L (37.0-47.0) % MCV 91.5 (81-99) fL MCH 29.6 (28.0-34.0) pg MCHC 32.3 (30.0-36.0) g/dL RDW 15.9 H (12.1-15.1) % Plt Count 171 (130-400) 10^3/c mm MPV 12.2 H (7.4-10.4) fL Neut % (Auto) 42.4 % Lymph % (Auto) 25.3 % [place] % (Auto) 30.9 % Eos % (Auto) 0.0 % Baso % (Auto) 1.1 % Neut # (Auto) 1.6 L (1.8-7.7) 10^3/u L Lymph # (Auto) 1.0 (0.8-4.8) 10^3/u L [place] # (Auto) 1.2 H (0.2-0.9) 10^3/u L Eos # (Auto) 0.0 (0.0-0.8) 10^3/u L Baso # (Auto) 0.0 (0.0-0.1) 10^3/u L Nucleated RBC % (a uto) 0 % Nucleated RBCs # 0.0 /100WBC PT (10.5-13.3) SECO NDS INR (0.8-1.2) Sodium 127 L 130 L (136-145) mmol/L Potassium 4.0 (3.5-5.1) mmol/L Chloride 96 L (98-107) mmol/L Carbon Dioxide 21 L (22-29) mmol/L Anion Gap 17.0 (5-19) BUN 11 (6-20) mg/dL Creatinine 0.8 (0.5-0.9) mg/dL GFR Calculation 73.7 L (90-130) mL/min Glucose 145 H (65-115) mg/dL Calculated Osmolal ity 269 L (285-295) mOsm/k g Calcium 8.3 L (8.5-10.5) mg/dL Phosphorus (2.5-4.5) mg/dL Magnesium (1.7-2.3) mg/dL Total Bilirubin 0.4 (0.15-1.2) mg/dL AST 130 H (0-32) U/L ALT 72 H (0-33) U/L Alkaline Phosphata se 75 (35-105) IU/L Total Protein 5.8 L (6.6-8.7) g/dL Albumin 3.6 (3.5-5.2) g/dL Globulin 2.2 (1.3-4.6) g/dL TSH (0.27-4.20) uIU/ mL Free T3 (2.0-4.4) PG/ML Urine Color (Yellow) Urine Appearance (CLEAR) Urine pH (5-7) Ur Specific Gravit y (1.005-1.030) Urine Protein (Negative) Urine Glucose (UA) (Normal) Urine Ketones (Negative) Urine Blood (Negative) Urine Nitrate (Negative) Urine Bilirubin (NEGATIVE) Urine Urobilinogen (Negative) mg/dL Ur Leukocyte Mayra ase (Negative) Discharge Plan Discharge Patient Disposition: Placed in Observation Admit Provider: Jana Black Clinical Impression: Concussion without loss of consciousness, Hypertension, Hypokalemia, Hyponatremia, Laceration of head Condition: Stable Referrals: [facility] [Outside] (Called [facility] and informed them of your discharge. They will get ahold of you.) Lucy Dean PA [Primary Care Provider] - 03/03/20 9:30 am (You have an hospital follow up appointment with Lucy Dean on March 03 at 9:30) Robin Solorzano MD [Hospitalist] - 1 month (Faxed face sheet and information to the clinic. They will get with you with an appointment and time. ) Patient Instructions: Metoprolol (By mouth), Levothyroxine (By mouth), Thiamine (Vitamin B-1) (By mouth), Folic Acid (By mouth), Fibromyalgia (DC), Generalized Anxiety Disorder (DC), Staple Care (DC), Restless Legs Syndrome (DC), Stitches and Paxton Care Additional Instructions: Discharge to home with home health services Medications have been changed during your hospital stay. Hydrochlorothiazide has been discontinued, please stop taking this medication. This was discontinued due to low sodium and low potassium. Metoprolol has been decreased to 12.5 mg twice daily You were noted to have low thyroid function, therefore levothyroxine was started at 50 mcg daily. Would recommend having your thyroid function rechecked in 3 to 4 weeks Follow-up with primary care provider in 2 to 5 days with recheck blood work at that time, basic metabolic panel. Follow-up with primary care provider for staple removal when indicated Strongly encourage cessation from alcohol Continue with home health services including physical therapy and Occupational Therapy Call your physician or present to the ED for any acute illness or concern Discharge Date/Time: 02/26/20 10:53 Coding Level of Care Code ED Insemination Worker for Chg Fwd Exam Comprehensive
[2020-02-26 07:54] LABS: Basophils # 0.1 10^3/uL (0.0-0.1); Basophils % 1.8 %; Eosinophils % 0.7 %; Hemoglobin 9.7 g/dL (11.5-15.3); Lymphocytes # 0.9 10^3/uL (0.8-4.8); Lymphocytes % 19.4 %; Mean Corpuscular HGB Conc 32.3 g/dL (30.0-36.0); Mean Corpuscular Hemoglobin 29.7 pg (28.0-34.0); Mean Corpuscular Volume 91.7 fL (81-99); Mean Platelet Volume 11.4 fL (7.4-10.4); Monocytes # 1.4 10^3/uL (0.2-0.9); Monocytes % 31.3 %; Neutrophils # 2.1 10^3/uL (1.8-7.7); Neutrophils % 46.6 %; Nucleated Red Blood Cells % 0 %; Platelet Count 170 10^3/cmm (130-400); Red Blood Count 3.27 10^6/uL (4.1-5.3); Red Cell Distribution Width 15.7 % (12.1-15.1); White Blood Count 4.5 10^3/uL (4.0-10.0)
[2020-02-26 08:02] LABS: INR 0.94 (0.8-1.2)
[2020-02-26 08:08] LABS: Anion Gap 15.5 (5-19); Blood Urea Nitrogen 10 mg/dL (6-20); Carbon Dioxide 25 mmol/L (22-29); Chloride 84 mmol/L (98-107); Glomerular Filtration Rate 64.3 mL/min (90-130); Glucose 84 mg/dL (65-115); Osmolality Calculated 249 mOsm/kg (285-295); Sodium 122 mmol/L (136-145)
[2020-02-26 08:21] LABS: Potassium 2.5 mmol/L (3.5-5.1)
[2020-02-26] MEDS: potassium chloride oral liq 20 mEq/15 mL UDC 60 MEQ PO (08:38)
--- NOTE | 2020-02-26 08:44 | ECG_ITS ---
[facility] Test Date: 2020-02-26 Pat Name: Yulisa Kinney Department: Room: Gender: Female [employer] Worker: : 1960 Requested By: Emerson Fatima Order Number: [id number] Caro MD: Ines Mchugh M.D. Measurements Intervals [place] Rate: 76 P: 69 WA: 200 QRS: 46 QRSD: 87 T: 41 QT: 407 QTc: 459 Interpretive Statements SINUS RHYTHM MINIMAL ST DEPRESSION [0.025+ mV ST DEPRESSION] No previous ECG available for comparison Electronically Signed On 02-26-2020 17:08:29 CDT by Ines Mchugh M.D. [id number]
--- NOTE | 2020-02-26 09:16 | XRR_ITS ---
PROCEDURE INFORMATION: Exam: XR Lumbosacral Spine, 2 or 3 Views Exam date and time: 02/26/2020 9:57 AM Age: 59 years old Clinical indication: Pain and injury or trauma; Fall; Initial encounter; Blunt trauma (contusions or hematomas); Low back pain; Prior surgery; Surgery type: Lumbar; Patient HX: History of lymphoma TECHNIQUE: Imaging protocol: XR of the lumbosacral spine, 2 or 3 views. COMPARISON: No relevant prior studies available. FINDINGS: Vertebrae: Right lateral and posterior fixation hardware noted at L4 and L5. There is a mild lumbar levoscoliosis. There is no fracture. Soft tissues: Unremarkable. XR/XR lumbar spine 2-3V* [id number] IMPRESSION: No acute abnormality.
[2020-02-26] MEDS: magnesium sulfate premix 2 GM/50 ML PIGGYBACK IV (09:27)
[2020-02-26 09:32] LABS: Add Urine Microscopic? NO
[2020-02-26 09:44] LABS: Bilirubin Urine Neg (NEGATIVE); Blood Urine Neg (Negative); Glucose Urine UA Norm (Normal); Ketones Urine Negative (Negative); Leukocyte Esterase Urine Negative (Negative); Nitrate Urine Negative (Negative); Protein Urine Neg (Negative); Specific Gravity, Urine 1.005 (1.005-1.030); Urine Appearance Clear (CLEAR); Urine Color Straw (Yellow); Urobilinogen Urine Norm (Negative); pH Urine 7 (5-7)
--- NOTE | 2020-02-26 11:12 | PM.HP ---
Providers/Chief Complaint Admitting Physician: Jana Black DO Primary Care Provider: Lucy Dean Chief Complaint: HEAD PAIN POST FALL History of Present Illness Yulisa Kinney is a 59 year old female with a past medical history of hypertension, peripheral neuropathy, Waldenstrom macroglobulinemia with IgM monoclonal gammopathy, fibromyalgia and degenerative disc disease that presented to the emergency department today after a fall. She reported that she was going out to get her 's coffee cup from his truck when she was trying to get into the truck but could not make it over the tailgate. She stated that she went to get a ladder to get into the truck. She stated that the next thing she remembers she was laying on the ground with blood gushing from her head. She stated that she laid on the ground for a brief period of time yelling for her , when he found her she was brought to the ER for further evaluation and treatment. She reports that her anniversary is today and they did have some alcohol last night. She stated that she typically drinks occasionally but she had quite a bit more to drink last night which could have contributed to her fall and balance issues. She stated that she does have issues with chronically feeling off balance. She denies any presyncopal events, no chest pain or shortness of breath prior to the fall that she can recall, no palpitations, no headache or vision changes prior to this. She stated that since the event she has had some headache, sensitivity to light and sound. Patient denies any recent illness, no fevers or chills, no chest pain, no dyspnea on exertion, no exposure to anyone under investigation are positive for CO VID-19 Patient was seen and evaluated in the emergency department noted to have concern for hypokalemia as well as hyponatremia with concern that this may be alcohol related as well as related to medication of hydrochlorothiazide. Patient was noted to have a laceration on the posterior scalp which was repaired and patient was placed on observation for close monitoring of electrolyte imbalances. Review of Systems Const: Denies: fever(s) or chills Eyes: Denies: change in vision ENMT: Denies: nasal congestion Card: Denies: chest pain, palpitations or edema Resp: Denies: dyspnea, productive cough or hemoptysis GI: Denies: abdominal pain, nausea, vomiting, diarrhea, constipation, hematochezia or melena : Denies: dysuria or hematuria Musc: Reports: neck pain (Chronic, unchanged); Denies: extremity pain or muscle cramps Skin/Breast: Reports: other (Laceration to the posterior scalp); Denies: rash or new lesions Neuro: Reports: headache(s) Psych: Reports: other (Chronic instability); Denies: anxiety or depression Endo: Denies: polyuria or hot flashes Valdez/Lymph: Denies: easy bruising or easy bleeding Medications/Allergies Home Medications Medication Instructions Recorded Confirmed Last Taken Type ascorbic acid (vitamin C) [Vitamin 500 mg PO BID 12/05/19 02/26/20 02/25/20 History C] calcium carbonate-vitamin D3 1 tab PO BID 12/05/19 02/26/20 02/25/20 History [Calcium 500 + D] cyclobenzaprine See Rx Instructions .ROUTE .COMPLEX 12/05/19 02/26/20 02/25/20 History hydrochlorothiazide 12.5 mg PO DAILY 12/05/19 02/26/20 02/25/20 History multivitamin 1 tab PO DAILY 12/05/19 02/26/20 02/25/20 History allopurinol 300 mg PO DAILY 02/26/20 02/26/20 02/25/20 History atorvastatin [Lipitor] 20 mg PO DAILY 02/26/20 02/26/20 02/25/20 History ibrutinib [Imbruvica] 420 mg PO QAM 02/26/20 02/26/20 02/25/20 History lorazepam See Rx Instructions .ROUTE .COMPLEX 02/26/20 02/26/20 Unknown History metoprolol tartrate 50 mg PO BID 02/26/20 02/26/20 02/25/20 History prochlorperazine maleate 10 mg PO Q4H PRN 02/26/20 02/26/20 02/25/20 History ropinirole See Rx Instructions .ROUTE .COMPLEX 02/26/20 02/26/20 02/25/20 History Allergies Allergy/AdvReac Type Severity Reaction Status Date / Time hydrocortisone Allergy Severe Elevated Verified 02/26/20 08:45 [From Cortizone-10] heart rate hydromorphone [From Dilaudid] Allergy Severe Hallucinati Verified 02/26/20 08:45 ons meperidine [From Demerol] Allergy Severe Excessive Verified 02/26/20 08:45 vomitting morphine Allergy Severe Heart rate Verified 02/26/20 08:45 drops PFSH Acute PFSH: Medical History (Updated 02/26/20 @ 11:22 by Jana Black DO) Anxiety Degenerative arthritis Fibromyalgia Hyperlipidemia Hypertension IgM monoclonal gammopathy of uncertain significance Restless leg syndrome Waldenstrom macroglobulinemia Surgical History (Updated 02/26/20 @ 11:22 by Jana Black DO) History of cervical spinal surgery History of section, low transverse X2 History of facial surgery Following trauma, x3 History of lumbar surgery History of shoulder surgery Right x2 Social History (Updated 02/26/20 @ 11:22 by Jana Black DO) Smoking and tobacco status: former smoker Alcohol intake: current Alcohol intake frequency: few times a week Substance/Drug Use: never Marital status: Vitals/I&O/Wt Last Vital Signs Temp 97.4 F L 02/26/20 10:41 Pulse 76 02/26/20 10:51 Resp 18 02/26/20 10:51 BP 132/85 02/26/20 10:51 Pulse Ox 94 02/26/20 10:51 Weight last 48 hrs Weight 49.895 kg Physical Exam Const: COMMON NORMALS: patient oriented x3 and alert GENERAL APPEARANCE: cooperative and frail appearing NUTRITIONAL APPEARANCE: thin ORIENTATION/CONSCIOUSNESS: Yes awake, Yes oriented to person, Yes oriented to place and Yes oriented to time HENMT: COMMON NORMALS: normocephalic HEAD & SCALP: normocephalic and laceration (Posterior scalp with garrett in place, hemostasis achieved) Eye: COMMON NORMALS: Equal, round and reactive pupils present PUPIL: Yes Equal, round and reactive pupils present Neck/C-Spine: COMMON NORMALS: supple GENERAL: Yes normal visual inspection Resp: COMMON NORMALS: normal respiratory effort and clear to auscultation bilaterally EFFORT & INSPECTION: Yes able to speak in complete sentences AUSCULTATION: clear to auscultation bilaterally, no rhonchi and no wheezes Cardio: COMMON NORMALS: regular rate, regular rhythm and No murmurs present (Cardio) RATE: regular rate RHYTHM: regular rhythm GI: COMMON NORMALS: Soft to palpation and non-tender INSPECTION: No abdominal distension AUSCULTATION: Yes normoactive bowel sounds PALPATION: Yes Soft to palpation : COMMON NORMALS: Yes no CVA tenderness BLADDER/KIDNEY EXAM: Yes no CVA tenderness Extremity: COMMON NORMALS: no clubbing, cyanosis or edema and no calf tenderness Neuro: COMMON NORMALS: patient oriented x3, CN's II-XII intact bilaterally, moves all extremities and no focal motor deficits SENSORIUM/ORIENTATION: Yes alert, Yes oriented to person, Yes oriented to place and Yes oriented to time SPEECH: speech normal Psych: COMMON NORMALS: mental status grossly normal and cooperative Skin: NARRATIVE SKIN EXAM: Laceration to the posterior scalp as noted above Data : 02/26/20 07:45 02/26/20 07:45 Xray Ortho: I personally reviewed and interpreted this imaging study as follows: Radiologist's impression: X-ray lumbosacral spine IMPRESSION: No acute abnormality. CT Head: I personally reviewed and interpreted this imaging study as follows: Radiologist's impression: MPRESSION: 1. No acute intracranial hemorrhage or edema. 2. Extensive soft tissue laceration and hematoma centered over the RIGHT parietal bone. Other CT: I personally reviewed and interpreted this imaging study as follows: Radiologist's impression: Cervical spine CT IMPRESSION: 1. No acute cervical spine fracture identified. 2. Extensive anterior and posterior cervical fusion. Hardware is intact. 3. C3 anterolisthesis by 3.8 mm. 4. No prior similar studies for comparison. A&P Assessment and plan (1) Fall: Fall from an unknown height, unwitnessed Patient reports what sounds like mechanical fall, alcohol ingestion could have contributed to this fall We will continue to monitor closely with fall precautions, frequent neurologic checks Laceration to the posterior scalp with garrett in place and hemostasis achieved Physical therapy and Occupational Therapy ordered as patient reports chronic issues with balance Patient also reports alcohol use, continue to monitor closely on [facility] protocol for any concern for alcohol withdrawal. Status: Acute (2) Hypokalemia: Severe hypokalemia, potassium of 2.5, hold hydrochlorothiazide and continue with potassium replacement We will also check magnesium, and corrective is indicated Status: Acute (3) Hyponatremia: Appears to be acute in nature with concern for underlying alcohol use and also medication related, hydrochlorothiazide. Hold HCTZ, given IV fluids as patient appears to be dehydrated Continue with serial sodium checks Close neurologic monitoring Status: Acute (4) Laceration of head: [place] in place, hemostasis achieved Status: Acute (5) IgM monoclonal gammopathy of uncertain significance: Followed closely by Dr. Solorzano, continue home ibrutinib Status: Acute (6) Restless leg syndrome: Continue home Requip Status: Acute (7) Anxiety: Continue home Ativan, however we will continue to monitor neurologic status closely and continue with fall precautions Status: Acute (8) Degenerative arthritis: Status: Acute (9) Fibromyalgia: Status: Acute (10) Hypertension: Holding hydrochlorothiazide, will continue to monitor blood pressure closely and consider alternative medication for blood pressure if indicated Status: Acute (11) Hyperlipidemia: Continue home atorvastatin Status: Acute (12) Waldenstrom macroglobulinemia: Followed by Dr. Solorzano Status: Acute Attestations Medical Necessity Statement*: Observation due to fall with head laceration and hypokalemia and hypo-natremia. Expected stay less than 2 midnights Coding Level of Care Code Acute Certification Engineer for Chg Fwd Diagnoses Fall W19.XXXA Hypokalemia E87.6 Hyponatremia E87.1 Laceration of head S01.91XA IgM monoclonal gammopathy of uncertain significance D47.2 Restless leg syndrome G25.81 Anxiety F41.9 Degenerative arthritis M19.90 Fibromyalgia M79.7 Hypertension I10 Hyperlipidemia E78.5 Waldenstrom macroglobulinemia C88.0
[2020-02-26] MEDS: acetaminophen 325 mg Tablet 650 MG PO (11:29)
[2020-02-26] MEDS: D5-NS 0.45% + KCL 20 mEq 20 MEQ/1,000 ML BAG 150 MEQ IV (11:35)
[2020-02-26 12:23] LABS: Magnesium 1.2 mg/dL (1.7-2.3); Phosphorus 3.9 mg/dL (2.5-4.5); Thyroid Stimulating Hormone 4.45 uIU/mL (0.27-4.20)
[2020-02-26 13:03] LABS: Potassium 3.3 mmol/L (3.5-5.1)
[2020-02-26 14:16] LABS: Sodium 128 mmol/L (136-145)
[2020-02-26] MEDS: potassium chloride ER 10 mEq Tablet 40 MEQ PO (15:25)
[2020-02-26] MEDS: sodium chlor 0.9% + KCl 20 mEq 20 MEQ/1,000 ML BAG 75 MEQ IV (15:26)
[2020-02-26 17:36] LABS: Sodium 129 mmol/L (136-145); T3 Free 1.6 PG/ML (2.0-4.4)
[2020-02-26] MEDS: ascorbic acid 500 mg Tablet PO (18:24)
[2020-02-26] MEDS: calcium carb-vit d 500mg-200unit 1 Tablet 1 EACH PO (18:24)
[2020-02-26] MEDS: TRAMadol 50 mg Tablet PO (18:58)
[2020-02-26 20:53] LABS: Sodium 130 mmol/L (136-145)
[2020-02-26] MEDS: ropinirole 0.25 mg Tablet PO (22:02)
[2020-02-27] MEDS: acetaminophen 325 mg Tablet 650 MG PO (00:15)
[2020-02-27] MEDS: cyclobenzaprine 10 mg Tablet 20 MG PO (00:18)
[2020-02-27 00:59] LABS: Sodium 127 mmol/L (136-145)
[2020-02-27 04:01] VITALS: BP 108/52; PULSE 92; RESP 20; TEMP 36.8; O2SAT 93
[2020-02-27] MEDS: TRAMadol 50 mg Tablet PO ×3 (04:22→17:31)
[2020-02-27 05:47] LABS: Basophils % 1.1 %; Hematocrit 29.1 % (37.0-47.0); Hemoglobin 9.4 g/dL (11.5-15.3); Lymphocytes % 25.3 %; Mean Corpuscular HGB Conc 32.3 g/dL (30.0-36.0); Mean Corpuscular Hemoglobin 29.6 pg (28.0-34.0); Mean Corpuscular Volume 91.5 fL (81-99); Mean Platelet Volume 12.2 fL (7.4-10.4); Monocytes # 1.2 10^3/uL (0.2-0.9); Monocytes % 30.9 %; Neutrophils # 1.6 10^3/uL (1.8-7.7); Neutrophils % 42.4 %; Nucleated Red Blood Cells % 0 %; Platelet Count 171 10^3/cmm (130-400); Red Blood Count 3.18 10^6/uL (4.1-5.3); Red Cell Distribution Width 15.9 % (12.1-15.1); White Blood Count 3.8 10^3/uL (4.0-10.0)
[2020-02-27 06:00] VITALS: BMI 22.2
[2020-02-27 06:08] LABS: Alanine Aminotransferase 72 U/L (0-33); Albumin Level 3.6 g/dL (3.5-5.2); Alkaline Phosphatase 75 IU/L (35-105); Aspartate Amino Transferase 130 U/L (0-32); Blood Urea Nitrogen 11 mg/dL (6-20); Calcium 8.3 mg/dL (8.5-10.5); Carbon Dioxide 21 mmol/L (22-29); Chloride 96 mmol/L (98-107); Globulin 2.2 g/dL (1.3-4.6); Glomerular Filtration Rate 73.7 mL/min (90-130); Glucose 145 mg/dL (65-115); Osmolality Calculated 269 mOsm/kg (285-295); Sodium 130 mmol/L (136-145); Total Bilirubin 0.4 mg/dL (0.15-1.2); Total Protein 5.8 g/dL (6.6-8.7)
[2020-02-27] MEDS: sodium chlor 0.9% + KCl 20 mEq 20 MEQ/1,000 ML BAG 75 MEQ IV ×2 (06:31→17:32)
[2020-02-27 08:00] VITALS: BP 126/77; BP 99/65; PULSE 93; PULSE 95; RESP 12; RESP 20; TEMP 36.6; TEMP 36.7; O2SAT 95
[2020-02-27] MEDS: thiamine 100 mg Tablet PO (09:18)
[2020-02-27] MEDS: ascorbic acid 500 mg Tablet PO ×2 (09:18→17:32)
[2020-02-27] MEDS: folic acid 1 mg Tablet PO (09:18)
[2020-02-27] MEDS: multivitamin therapeutic Tablet 1 TAB PO (09:18)
[2020-02-27] MEDS: allopurinol 300 mg Tablet PO (09:18)
[2020-02-27] MEDS: levothyroxine 50 mcg Tablet PO (09:18)
--- NOTE | 2020-02-27 10:36 | PC.CHAP ---
Pastoral Care Encounter/Spiritual Assessment Type of Contact [] Declined hand sign writer visit [] Patient/Family/Request visit [] Outpatient visit [] Follow-up visit [] Physician referral [] Code/Alert [x] Routine visit [] Staff referral [] Actively dying [] Patient sleeping [] Family support [] [] Out of room [] Palliative care [] [] Receiving care in room [] Pre-surgical visit [] Trauma [] Long length of stay [] ICU visit [] Other: Relational/Emotional Strength [x] Patient feels connected with others/family/visitors/staff [] Distress [] Loneliness/isolation [] Abandonment Spirituality of Patient [x] Person of Ruthie [] Attends Synagogue of their Ruthie [x] Believes in Prayer [] Reads Bible or Confucianist materials [x] There are Spiritual issues to be addressed Vfx Artist Interventions [x] Prayer [x] Active listening [x] Non-anxious presence [x] Spiritual/emotional support [] Crisis/trauma care [] Spiritual counseling [] Bereavement support [] Provided bereavement packet [] Provided Bible/devotional materials [] Provided toy/stuffed animal, coloring book to patient or family member [] Provided Communion [] Anointing/[place] [] Salvation [x] Completed spiritual assessment [] Other: Impact on Illness or Injury [] Angry [] Fearful [] Anxious [] Often cries [] Exhaustion [] Unable to work [] Unable to attend bahai [] Unable to walk/stand [] Unable to read [] Unable to drive [] Unable to eat/drink [] Unable to sleep [] Unable to be with family [] Patient intubated [x] Other: Summary Patient had questions as to why God has allowed trouble in her life. Scripture and prayer provided. Time spent with patient 10 minutes
--- NOTE | 2020-02-27 11:38 | P.PN_ITS ---
Subjective Subjective: Interval history: Patient resting in bed at time of exam today. Reports that she continues to have dizziness. Patient remains mildly orthostatic, this is improved. She stated that she has discomfort from the laceration over the posterior scalp. Patient denies any chest pain or shortness of breath Vitals/I&O/Wt Last Vital Signs Temp 98 F 02/27/20 08:00 Pulse 93 02/27/20 08:00 Resp 20 H 02/27/20 08:00 BP 99/65 02/27/20 08:00 Pulse Ox 95 02/27/20 08:00 02/26/20 02/27/20 02/27/20 22:59 06:59 14:59 Intake Total 840 / 1320 1200 / 2520 Output Total 500 / 500 Balance 340 / 820 1200 / 2020 Weight last 48 hrs Weight 49.895 kg Weight 49.895 kg Physical Exam Const: COMMON NORMALS: patient oriented x3 and alert GENERAL APPEARANCE: cooperative and frail appearing NUTRITIONAL APPEARANCE: thin ORIENTATION/CONSCIOUSNESS: Yes awake, Yes oriented to person, Yes oriented to place and Yes oriented to time HENMT: COMMON NORMALS: normocephalic HEAD & SCALP: normocephalic and laceration (Posterior scalp with tyler in place, hemostasis achieved) Eye: COMMON NORMALS: Equal, round and reactive pupils present PUPIL: Yes Equal, round and reactive pupils present Neck/C-Spine: COMMON NORMALS: supple GENERAL: Yes normal visual inspection Resp: COMMON NORMALS: normal respiratory effort and clear to auscultation bilaterally EFFORT & INSPECTION: Yes able to speak in complete sentences AUSCULTATION: clear to auscultation bilaterally, no rhonchi and no wheezes Cardio: COMMON NORMALS: regular rate, regular rhythm and No murmurs present (Cardio) RATE: regular rate RHYTHM: regular rhythm GI: COMMON NORMALS: Soft to palpation and non-tender INSPECTION: No abdominal distension AUSCULTATION: Yes normoactive bowel sounds PALPATION: Yes Soft to palpation : COMMON NORMALS: Yes no CVA tenderness BLADDER/KIDNEY EXAM: Yes no CVA tenderness Back/Pelvis: COMMON NORMALS: no CVA tenderness Extremity: COMMON NORMALS: no clubbing, cyanosis or edema and no calf tenderness Neuro: COMMON NORMALS: patient oriented x3, CN's II-XII intact bilaterally, moves all extremities and no focal motor deficits SENSORIUM/ORIENTATION: Yes alert, Yes oriented to person, Yes oriented to place and Yes oriented to time SPEECH: speech normal Psych: COMMON NORMALS: mental status grossly normal and cooperative Skin: NARRATIVE SKIN EXAM: Laceration to the posterior scalp as noted above Data : 02/27/20 04:50 02/27/20 04:50 A&P Assessment and plan (1) Fall: Unwitnessed fall that is believed to be multifactorial due to alcohol intoxication, hyponatremia, orthostatic hypotension Posterior scalp laceration with tyler in place and hemostasis achieved Continue with PT and OT Patient remains mildly orthostatic therefore will continue close monitoring Change to inpatient admission Physical therapy and Occupational Therapy ordered and patient will likely require home health Status: Acute (2) Hypokalemia: Severe hypokalemia, now improved Status: Acute (3) Hyponatremia: Hydrochlorothiazide discontinued Sodium at 130 today, this is improved from admission Decrease IV fluid rate today Status: Acute (4) Laceration of head: [place] in place, hemostasis achieved Status: Acute (5) IgM monoclonal gammopathy of uncertain significance: Followed closely by Dr. Solorzano, continue home ibrutinib Status: Acute (6) Restless leg syndrome: Continue home Requip Status: Acute (7) Anxiety: Continue home Ativan, however we will continue to monitor neurologic status closely and continue with fall precautions Status: Acute (8) Degenerative arthritis: Status: Acute (9) Fibromyalgia: Status: Acute (10) Hypertension: Holding hydrochlorothiazide Patient's blood pressures remain soft and remains mildly orthostatic, will decrease metoprolol to 25 mg twice daily Status: Acute (11) Hyperlipidemia: Continue home atorvastatin Status: Acute (12) Waldenstrom macroglobulinemia: Followed by Dr. Solorzano Status: Acute Attestations Medical Necessity Statement*: Change to inpatient admission due to patient requiring further IV fluids due to hyponatremia, fall with scalp laceration, dizziness and gait instability along with orthostatic hypotension Coding Level of Care Code Acute Manager Investment Banking for [facility] Fwd Diagnoses Fall W19.XXXA Hypokalemia E87.6 Hyponatremia E87.1 Laceration of head S01.91XA IgM monoclonal gammopathy of uncertain significance D47.2 Restless leg syndrome G25.81 Anxiety F41.9 Degenerative arthritis M19.90 Fibromyalgia M79.7 Hypertension I10 Hyperlipidemia E78.5 Waldenstrom macroglobulinemia C88.0
[2020-02-27 12:00] VITALS: BP 126/77; PULSE 95; RESP 12; TEMP 36.7; O2SAT 97
[2020-02-27] MEDS: calcium carb-vit d 500mg-200unit 1 Tablet 1 EACH PO ×2 (14:25→17:32)
[2020-02-27] MEDS: atorvastatin 40 mg Tablet 20 MG PO (14:25)
[2020-02-27 15:54] VITALS: BP 124/74; PULSE 101; RESP 12; TEMP 36.8; O2SAT 98
[2020-02-27] MEDS: metoprolol tartrate 25 mg Tablet PO (17:32)
[2020-02-27 19:39] VITALS: BP 119/74; PULSE 82; RESP 18; TEMP 36.7; O2SAT 100
[2020-02-27] MEDS: ropinirole 0.25 mg Tablet PO (21:38)
[2020-02-27 23:40] VITALS: BP 119/71; PULSE 90; RESP 20; TEMP 36.8; O2SAT 94
[2020-02-28] MEDS: acetaminophen 325 mg Tablet 650 MG PO ×2 (00:46→10:46)
[2020-02-28 04:00] VITALS: BP 108/65; PULSE 86; RESP 20; TEMP 36.4; O2SAT 95
[2020-02-28 06:17] LABS: INR 1.01 (0.8-1.2)
[2020-02-28 06:34] LABS: Alanine Aminotransferase 57 U/L (0-33); Alkaline Phosphatase 65 IU/L (35-105); Anion Gap 12.8 (5-19); Aspartate Amino Transferase 92 U/L (0-32); Blood Urea Nitrogen 5 mg/dL (6-20); Calcium 7.8 mg/dL (8.5-10.5); Carbon Dioxide 23 mmol/L (22-29); Chloride 90 mmol/L (98-107); Globulin 2.8 g/dL (1.3-4.6); Glomerular Filtration Rate 102.7 mL/min (90-130); Glucose 88 mg/dL (65-115); Osmolality Calculated 249 mOsm/kg (285-295); Potassium 3.8 mmol/L (3.5-5.1); Sodium 122 mmol/L (136-145); Total Bilirubin 0.3 mg/dL (0.15-1.2); Total Protein 5.8 g/dL (6.6-8.7)
--- NOTE | 2020-02-28 07:05 | PC.NURSE ---
Shift Summary Pt slept well throughout the night. Some c/o pain relieved with oral meds. Pt has been A&Ox4. at midnight pt stated she would wake up and would think she was seeing bugs crawling but then would remind herself there was nothing there, pt c/o head hurting at this time as well. pt is slightly wobbly when up with assistance. pt has had good urinary output.
[2020-02-28 07:43] VITALS: BP 100/64; PULSE 95; RESP 16; TEMP 36.4; O2SAT 98
[2020-02-28] MEDS: thiamine 100 mg Tablet PO (08:32)
[2020-02-28] MEDS: folic acid 1 mg Tablet PO (08:33)
[2020-02-28] MEDS: allopurinol 300 mg Tablet PO (08:33)
[2020-02-28] MEDS: multivitamin therapeutic Tablet 1 TAB PO (08:33)
[2020-02-28] MEDS: levothyroxine 50 mcg Tablet PO (08:33)
[2020-02-28] MEDS: atorvastatin 40 mg Tablet 20 MG PO (08:33)
[2020-02-28] MEDS: ascorbic acid 500 mg Tablet PO (08:33)
[2020-02-28] MEDS: calcium carb-vit d 500mg-200unit 1 Tablet 1 EACH PO (08:34)
[2020-02-28 09:52] LABS: Blood Urea Nitrogen 4 mg/dL (6-20); Glomerular Filtration Rate 85.9 mL/min (90-130)
--- NOTE | 2020-02-28 10:16 | P.PN_ITS ---
Subjective Subjective: Interval history: Patient sitting up in bed at time of exam today. She reports that she is feeling much better and denies any chest pain or shortness of breath. Patient reports that she is feeling better, improved dizziness, improve equilibrium. Discussed with patient that her sodium has dropped again suddenly this morning and will need to work-up further labs and urine testing, she verbalizes understanding and agrees with plan. Patient states that she has been told by primary care providers even many years ago that she has had very low sodium in the past, uncertain of ranges, one time was told to take extra sodium Vitals/I&O/Wt Last Vital Signs Temp 97.6 F 02/28/20 07:43 Pulse 95 02/28/20 07:43 Resp 16 02/28/20 07:43 BP 100/64 02/28/20 07:43 Pulse Ox 98 02/28/20 07:43 02/27/20 02/28/20 02/28/20 22:59 06:59 14:59 Intake Total 1906.25 / 1906.25 360 / 360 Output Total 2300 / 2300 500 / 2800 Balance -393.75 / -393.75 -500 / -893.75 360 / 360 Weight last 48 hrs Weight 60.016 kg Weight 49.895 kg Physical Exam Const: COMMON NORMALS: patient oriented x3 and alert GENERAL APPEARANCE: cooperative and frail appearing NUTRITIONAL APPEARANCE: thin ORIENTATION/CONSCIOUSNESS: Yes awake, Yes oriented to person, Yes oriented to p lace and Yes oriented to time HENMT: COMMON NORMALS: normocephalic HEAD & SCALP: normocephalic and laceration (Posterior scalp with tyler in place, hemostasis achieved) Eye: COMMON NORMALS: Equal, round and reactive pupils present PUPIL: Yes Equal, round and reactive pupils present Neck/C-Spine: COMMON NORMALS: supple GENERAL: Yes normal visual inspection Resp: COMMON NORMALS: normal respiratory effort and clear to auscultation bilaterally EFFORT & INSPECTION: Yes able to speak in complete sentences AUSCULTATION: clear to auscultation bilaterally, no rhonchi and no wheezes Cardio: COMMON NORMALS: regular rate, regular rhythm and No murmurs present (Cardio) RATE: regular rate RHYTHM: regular rhythm GI: COMMON NORMALS: Soft to palpation and non-tender INSPECTION: No abdominal distension AUSCULTATION: Yes normoactive bowel sounds PALPATION: Yes Soft to palpation : COMMON NORMALS: Yes no CVA tenderness BLADDER/KIDNEY EXAM: Yes no CVA tenderness Back/Pelvis: COMMON NORMALS: no CVA tenderness Extremity: COMMON NORMALS: no clubbing, cyanosis or edema and no calf tenderness Neuro: COMMON NORMALS: patient oriented x3, CN's II-XII intact bilaterally, moves all extremities and no focal motor deficits SENSORIUM/ORIENTATION: Yes alert, Yes oriented to person, Yes oriented to place and Yes oriented to time SPEECH: speech normal Psych: COMMON NORMALS: mental status grossly normal and cooperative Skin: NARRATIVE SKIN EXAM: Laceration to the posterior scalp as noted above Data : 02/27/20 04:50 02/28/20 09:03 A&P Assessment and plan (1) Fall: Unwitnessed fall that is believed to be multifactorial due to alcohol intoxication, hyponatremia, orthostatic hypotension Posterior scalp laceration with tyler in place and hemostasis achieved Continue with PT and OT Physical therapy and Occupational Therapy ordered and patient will likely require home health Status: Acute (2) Hypokalemia: Severe hypokalemia, now resolved Status: Acute (3) Hyponatremia: Patient had an admission sodium of 122, with IV fluids and discontinuation of hydrochlorothiazide this improved to 130. Suddenly patient's sodium has dropped today to 122 down to 118 on recheck. Will check urine sodium, urine osmolality, discontinue IV fluids at this time, patient does not appear significantly overloaded but will continue to monitor closely. Will follow up with further labs Serial BMP ordered Discussed with patient and where she reports that this is been a chronic problem in the past Status: Acute (4) Laceration of head: Tyler in place, hemostasis achieved Status: Acute (5) IgM monoclonal gammopathy of uncertain significance: Followed closely by Dr. Solorzano, continue home ibrutinib Status: Acute (6) Restless leg syndrome: Continue home Requip Status: Acute (7) Anxiety: Continue home Ativan, however we will continue to monitor neurologic status closely and continue with fall precautions Status: Acute (8) Degenerative arthritis: Status: Acute (9) Fibromyalgia: Status: Acute (10) Hypertension: Discontinued hydrochlorothiazide on admission Decrease metoprolol to 12.5 mg twice daily Status: Acute (11) Hyperlipidemia: Continue home atorvastatin Status: Acute (12) Waldenstrom macroglobulinemia: Followed by Dr. Solorzano Status: Acute (13) Hypothyroidism: Hypothyroidism on presentation Started on levothyroxine 50 mcg daily Status: Acute Attestations Medical Necessity Statement*: Patient requires further hospitalization due to concern for worsening hyponatremia. Coding Level of Care Code Acute [employer] Production Team Member for Chg Fwd Diagnoses Fall W19.XXXA Hypokalemia E87.6 Hyponatremia E87.1 Laceration of head S01.91XA IgM monoclonal gammopathy of uncertain significance D47.2 Restless leg syndrome G25.81 Anxiety F41.9 Degenerative arthritis M19.90 Fibromyalgia M79.7 Hypertension I10 Hyperlipidemia E78.5 Waldenstrom macroglobulinemia C88.0 Hypothyroidism E03.9
[2020-02-28 10:54] LABS: Basophils # 0.1 10^3/uL (0.0-0.1); Basophils % 0.9 %; Eosinophils % 0.5 %; Hemoglobin 9.1 g/dL (11.5-15.3); Lymphocytes # 1.5 10^3/uL (0.8-4.8); Lymphocytes % 26.8 %; Mean Corpuscular HGB Conc 31.4 g/dL (30.0-36.0); Mean Corpuscular Hemoglobin 29.5 pg (28.0-34.0); Mean Corpuscular Volume 94.2 fL (81-99); Monocytes # 1.8 10^3/uL (0.2-0.9); Monocytes % 32.9 %; Neutrophils # 2.2 10^3/uL (1.8-7.7); Neutrophils % 38.7 %; Nucleated Red Blood Cells % 0 %; Platelet Count 164 10^3/cmm (130-400); Red Blood Count 3.08 10^6/uL (4.1-5.3); Red Cell Distribution Width 16.5 % (12.1-15.1); White Blood Count 5.6 10^3/uL (4.0-10.0)
--- NOTE | 2020-02-28 11:11 | PC.CHAP ---
Pastoral Care Encounter/Spiritual Assessment Type of Contact [] Declined cable inspector visit [] Patient/Family/Request visit [] Outpatient visit [] Follow-up visit [] Physician referral [] Code/Alert [x] Routine visit [] Staff referral [] Actively dying [] Patient sleeping [] Family support [] [] Out of room [] Palliative care [] [] Receiving care in room [] Pre-surgical visit [] Trauma [] Long length of stay [] ICU visit [] Other: Relational/Emotional Strength [] Patient feels connected with others/family/visitors/staff [] Distress [] Loneliness/isolation [] Abandonment Spirituality of Patient [x] Person of Ruthie [] Attends Jewish of their Ruthie [] Believes in Prayer [] Reads Bible or Uatsdin materials [] There are Spiritual issues to be addressed Agency Service Representative Interventions [x] Prayer [x] Active listening [x] Non-anxious presence [x] Spiritual/emotional support [] Crisis/trauma care [] Spiritual counseling [] Bereavement support [] Provided bereavement packet [] Provided Bible/devotional materials [] Provided toy/stuffed animal, coloring book to patient or family member [] Provided Communion [] Anointing/[place] [] Salvation [x] Completed spiritual assessment [] Other: Impact on Illness or Injury [] Angry [] Fearful [] Anxious [] Often cries [] Exhaustion [] Unable to work [] Unable to attend latter-day [] Unable to walk/stand [] Unable to read [] Unable to drive [] Unable to eat/drink [] Unable to sleep [] Unable to be with family [] Patient intubated [] Other: Summary Patient discouraged because she cant return home yet. tests show additional issues that need to be addressed. But patient has come to understand that all issues must be addressed so she doesnt have to return. Time spent with patient 20 min
[2020-02-28] MEDS: FUROsemide 20 mg Tablet PO (11:29)
[2020-02-28 11:36] VITALS: BP 114/68; PULSE 93; RESP 16; TEMP 36.6; O2SAT 92
[2020-02-28 11:48] LABS: Sodium 129 mmol/L (136-145)
[2020-02-28] MEDS: TRAMadol 50 mg Tablet PO (12:39)
--- NOTE | 2020-02-28 13:10 | PM.DCS ---
Discharge Providers Date of Admission: 02/27/20 12:45 Date of Discharge: February 28, 2020 Attending Provider at Admission: Jana Black DO Attending Provider at Discharge: Jana Black DO Primary Care Provider: Lucy Dean Diagnoses at Discharge Discharge Diagnosis (1) Fall: Status: Acute (2) Hypokalemia: Status: Acute (3) Hyponatremia: Status: Acute (4) Laceration of head: Status: Acute (5) IgM monoclonal gammopathy of uncertain significance: Status: Acute (6) Restless leg syndrome: Status: Acute (7) Anxiety: Status: Acute (8) Degenerative arthritis: Status: Acute (9) Fibromyalgia: Status: Acute (10) Hypertension: Status: Acute (11) Hyperlipidemia: Status: Acute (12) Waldenstrom macroglobulinemia: Status: Acute (13) Hypothyroidism: Status: Acute Reason for Visit Reason for Visit: HEAD PAIN POST FALL Hospital Course Hospital Course: Patient was seen and evaluated in the emergency department noted to have concern for a fall at home with posterior scalp laceration. She was noted to have hypokalemia and hyponatremia and admitted for further evaluation and treatment. Patient's hyponatremia improved and hypokalemia resolved with discontinuation of hydrochlorothiazide. Patient was given IV fluids and physical therapy and Occupational Therapy ordered for further evaluation and treatment. CT head was performed in the emergency department showed no intracranial abnormalities, did show a posterior scalp laceration, this was stapled in the ED and hemostasis was achieved. Patient was monitored on telemetry and also monitored under CIWA protocol due to concern for alcohol use. On date of discharge patient was noted to have a critical sodium, upon recheck this came back up to where it was previously with no further intervention, therefore this was noted to be lab error. On date of discharge patient reported that she was feeling much better and denied any concerns and therefore this did not fit with her clinical presentation. Discussed with patient and she verbalized understanding and agreed with plan for plan to discharge to home and discontinuation of hydrochlorothiazide. Physical Exam Const: COMMON NORMALS: patient oriented x3 and alert GENERAL APPEARANCE: cooperative and frail appearing NUTRITIONAL APPEARANCE: thin ORIENTATION/CONSCIOUSNESS: Yes awake, Yes oriented to person, Yes oriented to place and Yes oriented to time HENMT: COMMON NORMALS: normocephalic HEAD & SCALP: normocephalic and laceration (Posterior scalp with tyler in place, hemostasis achieved) Eye: COMMON NORMALS: Equal, round and reactive pupils present PUPIL: Yes Equal, round and reactive pupils present Neck/C-Spine: COMMON NORMALS: supple GENERAL: Yes normal visual inspection Resp: COMMON NORMALS: normal respiratory effort and clear to auscultation bilaterally EFFORT & INSPECTION: Yes able to speak in complete sentences AUSCULTATION: clear to auscultation bilaterally, no rhonchi and no wheezes Cardio: COMMON NORMALS: regular rate, regular rhythm and No murmurs present (Cardio) RATE: regular rate RHYTHM: regular rhythm GI: COMMON NORMALS: Soft to palpation and non-tender INSPECTION: No abdominal distension AUSCULTATION: Yes normoactive bowel sounds PALPATION: Yes Soft to palpation : COMMON NORMALS: Yes no CVA tenderness BLADDER/KIDNEY EXAM: Yes no CVA tenderness Back/Pelvis: COMMON NORMALS: no CVA tenderness Extremity: COMMON NORMALS: no clubbing, cyanosis or edema and no calf tenderness Neuro: COMMON NORMALS: patient oriented x3, CN's II-XII intact bilaterally, moves all extremities and no focal motor deficits SENSORIUM/ORIENTATION: Yes alert, Yes oriented to person, Yes oriented to place and Yes oriented to time SPEECH: speech normal Psych: COMMON NORMALS: mental status grossly normal and cooperative Skin: NARRATIVE SKIN EXAM: Laceration to the posterior scalp as noted above Discharge Data Data Completed and Pending: Completed Studies During Hospitalization Category Date Time Status CT cervical spin wo con* [id number] Urge nt Cat Scan 02/26/20 07:[address] head wo con* [id number] Urgent Cat Scan 02/26/20 07:33 Completed XR lumbar spine 2 -3V* [id number] Stat Exams 02/26/20 09:16 Completed Pending at discharge Category Date Time Status Total Iron Bindin g Capacity Routine Lab 02/28/20 11:23 Ordered Urine Random Sodi um Stat Lab 02/28/20 11:42 Received Labs from last 24 hours 02/28/20 02/28/20 02/28/20 11:26 10:45 09:03 WBC 5.6 RBC 3.08 L Hgb 9.1 L Hct 29.0 L MCV 94.2 MCH 29.5 MCHC 31.4 RDW 16.5 H Plt Count 164 MPV 11.0 H Neut % (Auto) 38.7 Lymph % (Auto) 26.8 Mathews % (Auto) 32.9 Eos % (Auto) 0.5 Baso % (Auto) 0.9 Neut # (Auto) 2.2 Lymph # (Auto) 1.5 Mathews # (Auto) 1.8 H Eos # (Auto) 0.0 Baso # (Auto) 0.1 Nucleated RBC % (a uto) 0 Nucleated RBCs # 0.0 PT INR Sodium 129 L 118 L* Potassium 3.9 Chloride 84 L Carbon Dioxide 24 Anion Gap 13.9 BUN 4 L Creatinine 0.7 GFR Calculation 85.9 L Glucose 128 H Calculated Osmolal ity 243 L Calcium 8.2 L Total Bilirubin AST ALT Alkaline Phosphata se Total Protein Albumin Globulin 02/28/20 02/28/20 05:40 05:40 WBC RBC Hgb Hct MCV MCH MCHC RDW Plt Count MPV Neut % (Auto) Lymph % (Auto) Mathews % (Auto) Eos % (Auto) Baso % (Auto) Neut # (Auto) Lymph # (Auto) Mathews # (Auto) Eos # (Auto) Baso # (Auto) Nucleated RBC % (a uto) Nucleated RBCs # PT 13.60 H INR 1.01 Sodium 122 L Potassium 3.8 Chloride 90 L Carbon Dioxide 23 Anion Gap 12.8 BUN 5 L Creatinine 0.6 GFR Calculation 102.7 Glucose 88 Calculated Osmolal ity 249 L Calcium 7.8 L Total Bilirubin 0.3 AST 92 H ALT 57 H Alkaline Phosphata se 65 Total Protein 5.8 L Albumin 3.0 L Globulin 2.8 Vitals: Last Vital Signs Temp 97.8 F 02/28/20 11:36 Pulse 93 02/28/20 11:36 Resp 16 02/28/20 11:36 BP 114/68 02/28/20 11:36 Pulse Ox 92 02/28/20 11:36 Discharge Plan Discharge Patient Disposition: Home Health Service Condition: Stable Prescriptions: New folic acid 1 mg Tablet 1 mg PO DAILY 30 Days Qty: 30 RF: 0 levothyroxine 50 mcg Tablet 50 mcg PO DAILY 30 Days Qty: 30 RF: 0 thiamine mononitrate (vit B1) [Vitamin B-1 (mononitrate)] 100 mg Tablet 100 mg PO DAILY 30 Days Qty: 30 RF: 0 metoprolol tartrate 25 mg Tablet 12.5 mg PO BID 30 Days Qty: 30 RF: 0 Continued Lipitor 20 mg Tablet 20 mg PO DAILY RF: 0 prochlorperazine maleate 10 mg Tablet 10 mg PO Q4H PRN (Reason: Nausea) RF: 0 lorazepam 0.5 mg Tablet See Rx Instructions .ROUTE .COMPLEX RF: 0 ropinirole 0.25 mg Tablet See Rx Instructions .ROUTE .COMPLEX RF: 0 allopurinol 300 mg Tablet 300 mg PO DAILY RF: 0 Imbruvica 140 mg Tablet 420 mg PO QAM RF: 0 multivitamin Tablet 1 tab PO DAILY RF: 0 cyclobenzaprine 10 mg Tablet See Rx Instructions .ROUTE .COMPLEX RF: 0 ascorbic acid (vitamin C) [Vitamin C] 500 mg Tablet 500 mg PO BID RF: 0 calcium carbonate-vitamin D3 [Calcium 500 + D] 500 mg(1,250mg) -200 unit Tablet 1 tab PO BID RF: 0 Discontinued metoprolol tartrate 50 mg Tablet 50 mg PO BID RF: 0 hydrochlorothiazide 12.5 mg Tablet 12.5 mg PO DAILY RF: 0 Discharge Orders: Discharge Order (Routine); Ordered 02/28/20 Ordered By: Jana Black Referrals: [facility] [Outside] Lucy Dean PA [Primary Care Provider] - 1-3 days Robin Solorzano MD [Hospitalist] - 1 month Discharge Diet: Advance as tolerated and Regular Discharge Activity: Increase activity as tolerated and As per PT/OT instructions Patient Instructions: Staple Care (DC), Stitches and [place] Care Activity Restrictions/Additional Instructions: Discharge to home with home health services Medications have been changed during your hospital stay. Hydrochlorothiazide has been discontinued, please stop taking this medication. This was discontinued due to low sodium and low potassium. Metoprolol has been decreased to 12.5 mg twice daily You were noted to have low thyroid function, therefore levothyroxine was started at 50 mcg daily. Would recommend having your thyroid function rechecked in 3 to 4 weeks Follow-up with primary care provider in 2 to 5 days with recheck blood work at that time, basic metabolic panel. Follow-up with primary care provider for staple removal when indicated Strongly encourage cessation from alcohol Continue with home health services including physical therapy and Occupational Therapy Call your physician or present to the ED for any acute illness or concern Discharge Attestations Time Spent in Discharge Care*: greater than 30 min Specific Discharge Activities: Specific discharge activities: educating patient, discussing with case fitter/social workers/dc planners and documenting/other paperwork Quality Metrics Clinical Quality Measures During this hospital stay, did patient experience: None Coding Level of Care Code Acute Counter Server for Chg Fwd Diagnoses Fall W19.XXXA Hypokalemia E87.6 Hyponatremia E87.1 Laceration of head S01.91XA IgM monoclonal gammopathy of uncertain significance D47.2 Restless leg syndrome G25.81 Anxiety F41.9 Degenerative arthritis M19.90 Fibromyalgia M79.7 Hypertension I10 Hyperlipidemia E78.5 Waldenstrom macroglobulinemia C88.0 Hypothyroidism E03.9
[2020-02-28 15:16] LABS: Urine Random Sodium 105 mmol/L
[2020-02-28 15:22] LABS: Iron 25 ug/dL (37-145); Percent Saturation 10.2 % (20-50); Total Iron Binding Capacity 245 mcg/dl; Unsaturated Iron Binding 220 ug/dL (112-347)
--- NOTE | 2020-02-28 15:44 | PC.NURSE ---
pt given discharge paperwork,gone over discharge instructions and new medications, pt stated she had no questions or concerns at this time. pt informed to call if any questions arise. pharmacy done meds to bed, pt refused to be taken down by wheelchair after nurse and CASH APPLICATIONS REPRESENTATIVE asked multiple times if we could get a wheel chair to take her down. Karen GILLIS walked pt down to who was waiting for her.
[2020-02-28 16:36] LABS: Osmolality Calculated 269 mOsm/kg (285-295)
--- NOTE | 2020-02-28 16:36 | PC.NURSE ---
pt was frustrated, anxious, and angry having to wait to leave for pharmacy to bring over her meds. pt was pacing outside her room with her stuff in her arms in the hallway. when asked if she wanted a wheelchair to leave in, she refused one. the nurse asked if i would take the pt down when the meds got here, i said yes and pt accused me of having an attitude. i assured her that i had no problem taking her, apologized for the misunderstanding and if i made her feel that way. while walking to the elevator i found a wheelchair and I took pt down to the car and wished her well.
[2020-02-28 16:37] LABS: Anion Gap 16.4 (5-19); Carbon Dioxide 23 mmol/L (22-29); Chloride 96 mmol/L (98-107); Potassium 4.4 mmol/L (3.5-5.1)
[2020-02-28 16:38] LABS: Calcium 8.4 mg/dL (8.5-10.5); Glucose 122 mg/dL (65-115)
[2020-02-28 16:41] LABS: Sodium 131 mmol/L (136-145)
[2020-02-28 17:50] VITALS: BP 114/68; PULSE 93; RESP 16; TEMP 36.6; O2SAT 92
== END 2020-02-28 16:00 | disposition home health service (06) | DRG 641 ==
LOC: ER 09:26 → MEDSURG 10:29
PROVIDERS: Family Medicine; Nurse Practitioner Family; Admitting Provider Family Medicine; PCP Physician Assistant; Visit Provider Family Medicine
DX: E87.1 Hypo-osmolality and hyponatremia (principal); E87.6 Hypokalemia; S01.01XA Laceration without foreign body of scalp, initial encounter; W19.XXXA Unspecified fall, initial encounter; I10 Essential (primary) hypertension; G62.9 Polyneuropathy, unspecified; C88.0 Waldenstrom macroglobulinemia; M79.7 Fibromyalgia; F41.9 Anxiety disorder, unspecified; D47.2 Monoclonal gammopathy; G25.81 Restless legs syndrome; Z87.891 Personal history of nicotine dependence; F10.10 Alcohol abuse, uncomplicated; E03.9 Hypothyroidism, unspecified; I95.1 Orthostatic hypotension
CPT/HCPCS: 12002; 12345; 36415; 70450; 72100; 72125; 80048; 80053; 81003; 83540; 83550; 83735; 84100; 84132; 84295; 84300; 84443; 84481; 85025; 85610; 93005; 96372; 97110; 97116; 97162; 97165; 97530; 97535; 99283; G0378; J2001; J3411; J3475

== ENCOUNTER 2020-03-02 09:07 | Outpatient (CLI) | payer MEDICARE, MEDICAID, SELFPAY ==
[2020-03-02 10:01] LABS: Basophils # 0.1 10^3/uL (0.0-0.1); Basophils % 1.4 %; Eosinophils # 0.1 10^3/uL (0.0-0.8); Eosinophils % 0.8 %; Hematocrit 27.3 % (37.0-47.0); Hemoglobin 8.9 g/dL (11.5-15.3); Lymphocytes # 1.7 10^3/uL (0.8-4.8); Lymphocytes % 24.1 %; Mean Corpuscular HGB Conc 32.6 g/dL (30.0-36.0); Mean Corpuscular Hemoglobin 30.2 pg (28.0-34.0); Mean Corpuscular Volume 92.5 fL (81-99); Monocytes # 2.1 10^3/uL (0.2-0.9); Monocytes % 29.7 %; Neutrophils # 3.1 10^3/uL (1.8-7.7); Neutrophils % 43.6 %; Nucleated Red Blood Cells % 0 %; Platelet Count 198 10^3/cmm (130-400); Red Blood Count 2.95 10^6/uL (4.1-5.3); Red Cell Distribution Width 15.8 % (12.1-15.1); White Blood Count 7.2 10^3/uL (4.0-10.0)
[2020-03-02 10:16] LABS: Alanine Aminotransferase 44 U/L (0-33); Albumin Level 3.7 g/dL (3.5-5.2); Alkaline Phosphatase 72 IU/L (35-105); Anion Gap 13.8 (5-19); Aspartate Amino Transferase 68 U/L (0-32); Blood Urea Nitrogen 9 mg/dL (6-20); Calcium 8.8 mg/dL (8.5-10.5); Carbon Dioxide 26 mmol/L (22-29); Chloride 89 mmol/L (98-107); Globulin 2.6 g/dL (1.3-4.6); Glomerular Filtration Rate 85.9 mL/min (90-130); Glucose 82 mg/dL (65-115); Immunoglobulin IGA 94 mg/dL (70-400); Immunoglobulin IGG 779 mg/dL (700-1600); Lactate Dehydrogenase 248 U/L (135-214); Osmolality Calculated 255 mOsm/kg (285-295); Potassium 3.8 mmol/L (3.5-5.1); Sodium 125 mmol/L (136-145); Total Bilirubin 0.6 mg/dL (0.15-1.2); Total Protein 6.3 g/dL (6.6-8.7)
[2020-03-02 10:48] LABS: Immunoglobulin IGM 876 mg/dL (40-230)
[2020-03-03 08:41] LABS: PROTEIN, TOTAL 5.9 g/dL (6.1-8.1)
[2020-03-03 14:51] LABS: KAPPA LIGHT CHAIN, FREE, SERUM 21.4 mg/L (3.3-19.4); KAPPA/LAMBDA LIGHT CHAINS FREE 0.69 (0.26-1.65); LAMBDA LIGHT CHAIN, FREE, SERU 31.1 mg/L (5.7-26.3)
[2020-03-03 15:45] LABS: ABNORMAL PROTEIN BAND 1 0.7 g/dL (NONE DETECTED); ALPHA 1 GLOBULIN 0.4 g/dL (0.2-0.3); ALPHA 2 GLOBULIN 0.7 g/dL (0.5-0.9); BETA 1 GLOBULIN 0.4 g/dL (0.4-0.6); BETA 2 GLOBULIN 0.3 g/dL (0.2-0.5); GAMMA GLOBULIN 1.2 g/dL (0.8-1.7)
== END 2020-03-02 09:08 | disposition home or self-care (01) ==
PROVIDERS: PCP Physician Assistant; Visit Provider Internal Medicine Medical Oncology
DX: C88.0 Waldenstrom macroglobulinemia (principal); D47.2 Monoclonal gammopathy; D72.820 Lymphocytosis (symptomatic)
CPT/HCPCS: 36415; 80053; 82784; 83615; 83883; 84155; 84165; 85025

== ENCOUNTER 2020-03-04 12:46 | Outpatient (CLI) | payer MEDICARE, MEDICAID, SELFPAY ==
--- NOTE | 2020-03-06 12:50 | ONC FU_ITS ---
Dr. Solorzano Patient Follow-Up Note Patient: Yulisa Kinney Unit #: [id number]: 1960 Dicatated By: Robin Solorzano M.D.Date of Visit:Mar 04, 2020 Onc Med Follow-up/Prog Note Chief Complaint: Waldenstrom macroglobulinemia. History of Present Illness: This is a 59 year-old woman with Waldenstrom macroglobulinemia, presenting with lymphocytosis, anemia, and splenomegly in association with IgM monoclonal gammopathy. She had been seeing Dr. Jasso in neurology for peripheral neuropathy symptoms. She had been diagnosed with bilateral carpal tunnel syndrome and lumbar radiculopathy. On 09/26/2019 she had a follow-up outpatient visit with Lucy Dean. Her laboratory studies included CBC showing hemoglobin 9.7 g and hematocrit 31.5%. The red cell indices were normal. The white blood cell count was elevated 14,900 with the differential showing 23% granulocytes, 68% lymphocytes, and 7% monocytes. The platelet count was normal at 165,000. Comprehensive metabolic profile showed borderline renal function with BUN 15 and creatinine 1.1 mg/dL. The albumin was normal at 4.2 g/dL with calculated serum globulin elevated at 4.4 g/dL. The liver enzymes were normal. Sed rate and CRP levels were normal. TSH was borderline at 4.74 ???IUl/mL. B12 was normal at 568 pg/mL. Folate was greater than 24.0 ng/mL. The serum iron studies showed slightly low transferrin saturation at 18%. Ferritin was normal at 65 ng/mL. Protein electrophoresis showed a monoclonal protein band quantitating at 1.2 g/dL. Immunofixation showed IgM lambda. I had seen her initially on 10/31/2019. She was noted to have a palpable spleen, but there was no peripheral lymphadenopathy noted. Her repeat CBC showed hemoglobin 9.9 g, white blood cell count 17,000, and platelet count 124,000. The differential showed 70% lymphocytes, 18% neutrophils, 8% monocytes, and 1% eosinophils. Comprehensive metabolic profile was unremarkable except for slightly elevated SGOT at 46/32 U/L. LDH was just slightly elevated at 231/214 U/L. Protein electrophoresis showed an M band quantitating at 1.1 g/dL. The quantitative immunoglobulins included IgG elevated at 1464/230 mg/dL, IgG normal at 1129 mg/dL, and IgA normal at 113 mg/dL. The free light chain assay showed elevated lambda light chain at 53.3 mg/L, kappa light chain 33.8 mg/L and kappa/lambda ratio within the normal range at 0.63. A whole blood flow cytometry on 11/06/2019 showed on monotypic B-cell population which was positive for CD19, CD20, and CD22. There was dim/partial positivity to FMC7 and CD25. A subset showed surface lambda light chain restriction, but the remaining population appeared to be light chain negative. The monotypic B cells were negative for CD5, CD10, CD23, CD11c, CD103, CD123, CD200, CD38, and CD34. The phenotype was felt to be nonspecific. Staging CT scans of the chest, abdomen, and pelvis on 11/14/2019 showed prominent left axillary lymph nodes, the largest measuring 10 mm, an enlarged celiac axis lymph node measuring 11.5 mm, a prominent left periaortic lymph node measuring 7 mm, and prominent inguinal lymph nodes measuring up to 10 mm. The spleen was enlarged measuring 13.1 cm. The right hepatic lobe was noted to be enlarged, but the liver otherwise appeared normal. She underwent bone marrow aspiration/biopsy on 12/05/2019. The interpretation was limited due to the bone marrow aspirate specimens having been hemodiluted without cellular spicules. Bone marrow was noted to be hypercellular on the biopsy specimen, averaging 60 to 90% cellularity. An extensive interstitial and diffuse lymphoid infiltrate was noted to involve a high proportion of the marrow space, estimated at 70 to 80%. The lymphoid cells were noted to be small and round with clumped nuclear chromatin. There was evidence of plasmacytic differentiation. The flow cytometry showed nonspecific phenotype, similar to the whole blood specimen. Iron stores were noted to be reduced, but not absent. Overall, the findings were not definitive, but they were suggestive of lymphoplasmacytic lymphoma. The MYD88 mutation was detected, consistent with Waldenstrom macroglobulinemia. Her other medical illnesses includehypertension, hyperlipidemia, fibromyalgia, and degenerative arthritis/degenerative disease of the spine. She has had multiple surgeries on both the cervical and lumbar spine. She reportedly was found to be positive for the Factor V Leiden mutation. She has history of smoking for 30 years, up to 2 packs of cigarettes daily. She quit smoking in 2006. INTERIM HISTORY: On 01/13/2020 she began a course of treatment with rituximab in combination with ibrutinib 420 mg daily. She experienced no acute toxicity with the initial infusion of rituximab without acute toxicity. She then continued the rituximab weekly for 4 weeks. She tolerated it very well. She then continued ibrutinib 420 mg daily. She is seen for a follow-up visit. She has not been feeling as good generally, as she has had a decline in her energy and activity tolerance. She says she feels tired out and she has slowed down. She describes feeling a resistance in her legs. She is now doing only minimal work. Her ECOG score is 2. She has good appetite. She has no fever or night sweats. She has been having some sinus drainage and she complains that her mouth feels sore at times. She does not complain of shortness of breath, cough, or chest pain. She has just very occasional nausea. She has no other GI or complaints. She has some back pain, which is chronic. She occasionally has headache. She is having dizziness/dysequilibrium more often now. Her numbness/tingling is unchanged. She has noticed increased bruising on her arms and legs. She has had no other bleeding. Medications: Allopurinol 1 Tablet (of 300 mg) Oral daily, Atorvastatin Calcium 1 Tablet (of 20 mg) Oral at bedtime, B-1 1 Tablet (of 100 mg) Oral daily, Calcium Citrate + D 1 Tablet (of 315-200 mg - Units) Oral b.i.d., Cyclobenzaprine HCl 1 - 2 Tablet (of 10 mg) Oral b.i.d., Folic Acid 1 Tablet (of 1 mg) Oral daily, Levothyroxine Sodium 1 Tablet (of 50 mcg) Oral daily, LORazepam 1 - 2 Tablet (of 0.5 mg) Oral t.i.d. PRN, Metoprolol Tartrate 1 Tablet (of 25 mg) Oral b.i.d., Multivitamin Adult 1 Tablet Oral daily, Prochlorperazine Maleate 1 Tablet (of 10 mg) Oral q 4 hours PRN, rOPINIRole HCl 1 Tablet (of 0.25 mg) Oral at bedtime, Vitamin C 1 Capsule (of 500 mg) Oral daily Allergies: Cortisone Acetate, Demerol, Dilaudid, Haldol, and Morphine Sulfate. Review of Systems: Constitutional - She has had a decrease in her energy and activity tolerance. She feels tired out and she has slowed down. She is doing only minimal work activity now.Appetite is good and weight is stable. No fever, night sweats, or hot flashes. ECOG score is 2, ENMT - She has sinus congestion/drainage and she has had sore mouth. No sore throat or difficulty swallowing, Hematologic/Lymphatic - She has bruising on her arms and legs, Respiratory - No shortness of breath. No cough. No pleuritic pain or hemoptysis, Cardiovascular - No angina pain. No palpitations, Gastrointestinal - No nausea or vomiting. No heartburn or acid reflux. No diarrhea or constipation. No blood in the stool or black stools, Genitourinary (F) - No dysuria or hematuria. No urinary frequency. No urgency or incontinence, Musculoskeletal - She has back pain, Integumentary - No skin rash, Neurologic - No headache. She has more dizziness/dysequilibrium. Her numbness/tingling is the same, Psychiatric - She has anxiety/depression. No insomnia. Vital Signs: Performed on Mar 04, 2020 13:04 Height - 59.00 in Weight - 117.4 lbs (HIGH) BSA - 1.47 sq.m BMI - 23.71 Temperature - 97.6 F (LOW) Pulse - 87 /min Respiration - 22 /min BP - 139/87 mm(hg) O2 Sat - 99 % Pain - 0 Physical Examination: Constitutional - She appears somewhat weak generally, Eyes - Sclerae nonicteric. Conjunctivae clear, ENMT - No lesions noted in the oral cavity, Hematologic/Lymphatic - No cervical, clavicular, or axillary adenopathy, Respiratory - Lungs are clear with good air movement bilaterally, Cardiovascular - Heart rhythm is regular. There is no murmur, gallop, or rub noted, Abdomen - Soft. Liver is not enlarged. Spleen is palpable on nspiration just below the costal margin. There is no abdominal mass or ascites noted and there is no inguinal adenopathy, Extremities - Mild edema at the ankles, Neurologic - No focal neurologic deficits noted. Lab/Imaging: Test performed on Mar 02, 2020 09:24 LDH (Total) 248 U/L Sodium 125 mmol/L Potassium 3.8 mmol/L Chloride 89 mmol/L CO2 26 mmol/L Anion Gap 13.8 BUN 9 mg/dL Creatinine 0.7 mg/dL Cr Clearance (Est) 72.6400 mL/min eGFR 85.9 mL/min Glucose 82 mg/dL Calcium 8.8 mg/dL Protein, Total 6.3 g/dL Albumin 3.7 g/dL Globulin 2.6 g/dL Bilirubin, Total 0.6 mg/dL ALT (SGPT) 44 U/L AST (SGOT) 68 U/L Alkaline Phosphatase 72 IU/L WBC 7.2 10 3/uL RBC 2.95 10 6/uL HGB 8.9 g/dL HCT 27.3 % MCV 92.5 fL MCH 30.2 pg MCHC 32.6 g/dL RDW 15.8 % Platelet Count 198 10 3/cmm MPV 11.0 fL Neutrophils 3.1 10 3/uL Lymphocytes 1.7 10 3/uL Monocytes 2.1 10 3/uL Eosinophils 0.1 10 3/uL Basophils 0.1 10 3/uL Neutrophil % 43.6 % Lymphocyte % 24.1 % Monocyte % 29.7 % Eosinophil % 0.8 % Basophils % 1.4 % NRBC % 0 % IgG 779 mg/dL IgA 94 mg/dL IgM 876 mg/dL Impression: 1. Patient with lymphoproliferative disorder with associated IgM monoclonal gammopathy. 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 The MYD88 mutation was detected, consistent with Waldenstr???m macroglobulinemia. 2. She has significant peripheral neuropathy, which I suspect is related. Her other medical illnesses include: 3. Hypertension. 4. Hyperlipidemia. 5. Fibromyalgia. 6. Degenerative arthritis and degenerative disease of the spine. She has associated cervical spinal canal stenosis. 7. She was reportedly found to be positive for the Factor V Leiden mutation. On 01/13/2020 she began a course of treatment with rituximab in combination with ibrutinib 420 mg daily. She completed 4 weekly infusions of rituximab and she then continued the ibrutinib at 420 mg daily. During treatment there was some decline in her renal function, but that subsequently resolved. She has remained moderately anemic, and there has now been some decline in her energy/activity tolerance. Her neuropathy symptoms remain unchanged. However, there has been a decrease in the lymphocytosis and in the spleen size, and there also has been some decline in her M protein. Plan: She continues ibrutinib 420 mg daily. She will be scheduled for a follow-up visit in 1 month. Signed By: Robin Solorzano M.D. <<Signature on File>>
== END 2020-03-04 12:47 | disposition home or self-care (01) ==
LOC: ONCMED 12:53
PROVIDERS: PCP Physician Assistant; Visit Provider Internal Medicine Medical Oncology
DX: C88.0 Waldenstrom macroglobulinemia (principal); I10 Essential (primary) hypertension; E78.5 Hyperlipidemia, unspecified; M79.7 Fibromyalgia; M19.90 Unspecified osteoarthritis, unspecified site; M48.02 Spinal stenosis, cervical region; D68.51 Activated protein C resistance; G62.9 Polyneuropathy, unspecified; Z79.899 Other long term (current) drug therapy
CPT/HCPCS: 99214

== ENCOUNTER 2020-04-01 09:57 | Outpatient (CLI) | payer MEDICARE, MEDICAID, SELFPAY ==
--- NOTE | 2020-04-01 10:03 | MM_ITS ---
WS: [id number] LEFT DIAGNOSTIC DIGITAL MAMMOGRAM WITH CAD HISTORY: LT BREAST ASYMMETRY, 6 month follow-up. COMPARISON: 09/10/2019, 07/18/2019 Technique: CC, MLO and ML views. Spot compression LEFT CC and MLO. Breast composition: The breasts are heterogeneously dense, which may obscure small masses. Dense sta ble fibroglandular tissue in the anterior LEFT breast is similar to the prior studies. No distortion or calcifications. MM/[place] [id number] IMPRESSION: BI-RADS: 2-Benign FOLLOW UP: See Report Patient to return to annual screening mammography. Screening mammogram should b e performed in July 2020.
== END 2020-04-01 09:58 | disposition home or self-care (01) ==
LOC: RADSHAW 10:02
PROVIDERS: PCP Physician Assistant; Visit Provider Physician Assistant
DX: N64.89 Other specified disorders of breast (principal)
CPT/HCPCS: 77065

== ENCOUNTER 2020-04-03 08:59 | Outpatient (CLI) | payer MEDICARE, MEDICAID, SELFPAY ==
[2020-04-03 09:35] LABS: Basophils # 0.1 10^3/uL (0.0-0.1); Basophils % 1.2 %; Eosinophils % 0.6 %; Hematocrit 34.1 % (37.0-47.0); Hemoglobin 11.2 g/dL (11.5-15.3); Lymphocytes # 1.9 10^3/uL (0.8-4.8); Lymphocytes % 29.3 %; Mean Corpuscular HGB Conc 32.8 g/dL (30.0-36.0); Mean Corpuscular Hemoglobin 28.6 pg (28.0-34.0); Mean Corpuscular Volume 87.2 fL (81-99); Monocytes # 1.9 10^3/uL (0.2-0.9); Monocytes % 28.4 %; Neutrophils # 2.65 10^3/uL (1.8-7.7); Nucleated Red Blood Cells % 0 %; Platelet Count 218 10^3/cmm (130-400); Red Blood Count 3.91 10^6/uL (4.1-5.3); Red Cell Distribution Width 14.9 % (12.1-15.1); White Blood Count 6.6 10^3/uL (4.0-10.0)
[2020-04-03 10:08] LABS: Alanine Aminotransferase 49 U/L (0-33); Albumin Level 4.1 g/dL (3.5-5.2); Alkaline Phosphatase 66 IU/L (35-105); Anion Gap 12.9 (5-19); Aspartate Amino Transferase 97 U/L (0-32); Blood Urea Nitrogen 6 mg/dL (6-20); Calcium 8.7 mg/dL (8.5-10.5); Carbon Dioxide 24 mmol/L (22-29); Chloride 92 mmol/L (98-107); Globulin 2.9 g/dL (1.3-4.6); Glomerular Filtration Rate 85.9 mL/min (90-130); Glucose 91 mg/dL (65-115); Lactate Dehydrogenase 285 U/L (135-214); Osmolality Calculated 255 mOsm/kg (285-295); Potassium 3.9 mmol/L (3.5-5.1); Sodium 125 mmol/L (136-145); Total Bilirubin 0.6 mg/dL (0.15-1.2)
[2020-04-03 10:51] LABS: Immunoglobulin IGA 105 mg/dL (70-400); Immunoglobulin IGG 814 mg/dL (700-1600)
[2020-04-03 11:04] LABS: Immunoglobulin IGM 724 mg/dL (40-230)
[2020-04-04 09:15] LABS: PROTEIN, TOTAL 6.4 g/dL (6.1-8.1)
[2020-04-06 12:40] LABS: ABNORMAL PROTEIN BAND 1 0.6 g/dL (NONE DETECTED); ALBUMIN 3.6 g/dL (3.8-4.8); ALPHA 1 GLOBULIN 0.3 g/dL (0.2-0.3); ALPHA 2 GLOBULIN 0.6 g/dL (0.5-0.9); BETA 1 GLOBULIN 0.4 g/dL (0.4-0.6); BETA 2 GLOBULIN 0.2 g/dL (0.2-0.5); GAMMA GLOBULIN 1.2 g/dL (0.8-1.7)
== END 2020-04-03 09:00 | disposition home or self-care (01) ==
LOC: ONCMED 09:05
PROVIDERS: PCP Physician Assistant; Visit Provider Internal Medicine Medical Oncology
DX: C88.0 Waldenstrom macroglobulinemia (principal); D72.820 Lymphocytosis (symptomatic); D47.2 Monoclonal gammopathy
CPT/HCPCS: 80053; 82784; 83615; 84155; 84165; 85025

== ENCOUNTER 2020-04-07 08:40 | Outpatient (CLI) | payer MEDICARE, MEDICAID, SELFPAY ==
--- NOTE | 2020-04-11 09:29 | ONC FU_ITS ---
Dr. Solorzano Patient Follow-Up Note Patient: Yulisa Kinney Unit #: [id number]: 1960 Dicatated By: Robin Solorzano M.D.Date of Visit:Apr 07, 2020 Onc Med Follow-up/Prog Note Chief Complaint: Waldenstrom macroglobulinemia. History of Present Illness: This is a 59 year-old woman with Waldenstrom macroglobulinemia, presenting with lymphocytosis, anemia, and splenomegly in association with IgM monoclonal gammopathy. She had been seeing Dr. Jasso in neurology for peripheral neuropathy symptoms. She had been diagnosed with bilateral carpal tunnel syndrome and lumbar radiculopathy. On 09/26/2019 she had a follow-up outpatient visit with Lucy Dean. Her laboratory studies included CBC showing hemoglobin 9.7 g and hematocrit 31.5%. The red cell indices were normal. The white blood cell count was elevated 14,900 with the differential showing 23% granulocytes, 68% lymphocytes, and 7% monocytes. The platelet count was normal at 165,000. Comprehensive metabolic profile showed borderline renal function with BUN 15 and creatinine 1.1 mg/dL. The albumin was normal at 4.2 g/dL with calculated serum globulin elevated at 4.4 g/dL. The liver enzymes were normal. Sed rate and CRP levels were normal. TSH was borderline at 4.74 ???IUl/mL. B12 was normal at 568 pg/mL. Folate was greater than 24.0 ng/mL. The serum iron studies showed slightly low transferrin saturation at 18%. Ferritin was normal at 65 ng/mL. Protein electrophoresis showed a monoclonal protein band quantitating at 1.2 g/dL. Immunofixation showed IgM lambda. I had seen her initially on 10/31/2019. She was noted to have a palpable spleen, but there was no peripheral lymphadenopathy noted. Her repeat CBC showed hemoglobin 9.9 g, white blood cell count 17,000, and platelet count 124,000. The differential showed 70% lymphocytes, 18% neutrophils, 8% monocytes, and 1% eosinophils. Comprehensive metabolic profile was unremarkable except for slightly elevated SGOT at 46/32 U/L. LDH was just slightly elevated at 231/214 U/L. Protein electrophoresis showed an M band quantitating at 1.1 g/dL. The quantitative immunoglobulins included IgG elevated at 1464/230 mg/dL, IgG normal at 1129 mg/dL, and IgA normal at 113 mg/dL. The free light chain assay showed elevated lambda light chain at 53.3 mg/L, kappa light chain 33.8 mg/L and kappa/lambda ratio within the normal range at 0.63. A whole blood flow cytometry on 11/06/2019 showed on monotypic B-cell population which was positive for CD19, CD20, and CD22. There was dim/partial positivity to FMC7 and CD25. A subset showed surface lambda light chain restriction, but the remaining population appeared to be light chain negative. The monotypic B cells were negative for CD5, CD10, CD23, CD11c, CD103, CD123, CD200, CD38, and CD34. The phenotype was felt to be nonspecific. Staging CT scans of the chest, abdomen, and pelvis on 11/14/2019 showed prominent left axillary lymph nodes, the largest measuring 10 mm, an enlarged celiac axis lymph node measuring 11.5 mm, a prominent left periaortic lymph node measuring 7 mm, and prominent inguinal lymph nodes measuring up to 10 mm. The spleen was enlarged measuring 13.1 cm. The right hepatic lobe was noted to be enlarged, but the liver otherwise appeared normal. She underwent bone marrow aspiration/biopsy on 12/05/2019. The interpretation was limited due to the bone marrow aspirate specimens having been hemodiluted without cellular spicules. Bone marrow was noted to be hypercellular on the biopsy specimen, averaging 60 to 90% cellularity. An extensive interstitial and diffuse lymphoid infiltrate was noted to involve a high proportion of the marrow space, estimated at 70 to 80%. The lymphoid cells were noted to be small and round with clumped nuclear chromatin. There was evidence of plasmacytic differentiation. The flow cytometry showed nonspecific phenotype, similar to the whole blood specimen. Iron stores were noted to be reduced, but not absent. Overall, the findings were not definitive, but they were suggestive of lymphoplasmacytic lymphoma. The MYD88 mutation was detected, consistent with Waldenstrom macroglobulinemia. Her other medical illnesses includehypertension, hyperlipidemia, fibromyalgia, and degenerative arthritis/degenerative disease of the spine. She has had multiple surgeries on both the cervical and lumbar spine. She reportedly was found to be positive for the Factor V Leiden mutation. She has history of smoking for 30 years, up to 2 packs of cigarettes daily. She quit smoking in 2006. INTERIM HISTORY: On 01/13/2020 she began a course of treatment with rituximab in combination with ibrutinib 420 mg daily. She completed the initial 4 weekly infusions of rituximab with no adverse effects. She then continued the ibrutinib at 420 mg daily. As of her follow-up visit on 03/04/2020 there had been a significant decline in her M protein, to 0.7 g/dL, and there also was significant improvement in the splenomegaly. There was not a significant change in her clinical status. She continued ibrutinib 420 mg daily. She is seen for a follow-up visit. She says she is feeling about the same. Her energy is still not good, and she has limited activity. She is able to do light work at home. ECOG score is 1. Her appetite is not very good. She says she is eating, but her weight is down 6 pounds. She does not have fever or night sweats. She has no shortness of breath, cough, or chest pain. She has some nausea, which comes and goes. She has no other GI complaints. Lately she has been having burning with urination. She has pain in her hands and in her lower back. She continues to have numbness/tingling in both upper and lower extremities. Medications: Allopurinol 1 Tablet (of 300 mg) Oral daily, Atorvastatin Calcium 1 Tablet (of 20 mg) Oral at bedtime, B-1 1 Tablet (of 100 mg) Oral daily, Calcium Citrate + D 1 Tablet (of 315-200 mg - Units) Oral b.i.d., Cyclobenzaprine HCl 1 - 2 Tablet (of 10 mg) Oral b.i.d., Ferrous Sulfate 1 Tablet (of 325 (65 fe) mg) Oral daily, Folic Acid 1 Tablet (of 1 mg) Oral daily, Imbruvica 3 Capsule (of 140 mg) Oral daily, Imodium A-D 1 Capsule (of 2 mg) Oral daily, Levothyroxine Sodium 1 Tablet (of 50 mcg) Oral daily, Metoprolol Tartrate 0.5 Tablet (of 25 mg) Oral b.i.d., Multivitamin Adult 1 Tablet Oral daily, Prochlorperazine Maleate 1 Tablet (of 10 mg) Oral q 4 hours PRN, rOPINIRole HCl 1 Tablet (of 0.25 mg) Oral at bedtime, Vitamin C 1 Capsule (of 500 mg) Oral daily Allergies: Cortisone Acetate, Demerol, Dilaudid, Haldol, and Morphine Sulfate. Review of Systems: Constitutional - Her energy is not good. She has limited activity, but she is doing light work at home. Her appetite is not very good. She says she is eating, but her weight is down 6 pounds. No fever or night sweats. ECOG score is 1, ENMT - She has some sinus drainage. No mouth sores. No sore throat or difficulty swallowing, Hematologic/Lymphatic - She has a lot of bruising, Respiratory - No shortness of breath. No cough. No pleuritic pain or hemoptysis, Cardiovascular - No angina pain. No palpitations, Gastrointestinal - She has nausea, which comes and goes. No vomiting. No heartburn or acid reflux. No diarrhea or constipation. No blood in the stool or black stools, Genitourinary (F) - She has been having burning with urination. No hematuria. No urinary frequency. No urgency or incontinence, Musculoskeletal - She has pain in her hands and in her lower back, Integumentary - No skin rash, Neurologic - She has dysequilibrium when she looks up. Her numbness/tingling is unchanged, Psychiatric - No anxiety or depression. She does not sleep well at night. Vital Signs: Performed on Apr 07, 2020 08:56 Height - 59.00 in Weight - 111.2 lbs (LOW) BSA - 1.44 sq.m BMI - 22.46 Temperature - 98.7 F Pulse - 80 /min Respiration - 18 /min BP - 103/64 mm(hg) O2 Sat - 97 % Pain - 0 Physical Examination: Constitutional - She appears somewhat weak generally, Eyes - Sclerae nonicteric. Conjunctivae clear, ENMT - No lesions noted in the oral cavity, Hematologic/Lymphatic - No cervical, clavicular, or axillary adenopathy, Respiratory - Lungs are clear with good air movement bilaterally, Cardiovascular - Heart rhythm is regular. There is no murmur, gallop, or rub noted, Abdomen - Soft. Liver is not enlarged. Spleen is not palpable. There is no abdominal mass or ascites noted and there is no inguinal adenopathy, Extremities - No edema. She has scattered purpuric lesions, Neurologic - No focal neurologic deficits noted. Lab/Imaging: Test performed on Apr 03, 2020 09:13 LDH (Total) 285 U/L Sodium 125 mmol/L Potassium 3.9 mmol/L Chloride 92 mmol/L CO2 24 mmol/L Anion Gap 12.9 BUN 6 mg/dL Creatinine 0.7 mg/dL Cr Clearance (Est) 72.6400 mL/min eGFR 85.9 mL/min Glucose 91 mg/dL Calcium 8.7 mg/dL Protein, Total 7.0 g/dL Albumin 4.1 g/dL Globulin 2.9 g/dL Bilirubin, Total 0.6 mg/dL ALT (SGPT) 49 U/L AST (SGOT) 97 U/L Alkaline Phosphatase 66 IU/L WBC 6.6 10 3/uL RBC 3.91 10 6/uL HGB 11.2 g/dL HCT 34.1 % MCV 87.2 fL MCH 28.6 pg MCHC 32.8 g/dL RDW 14.9 % Platelet Count 218 10 3/cmm MPV 11.0 fL Neutrophils 2.65 10 3/uL Lymphocytes 1.9 10 3/uL Monocytes 1.9 10 3/uL Eosinophils 0.0 10 3/uL Basophils 0.1 10 3/uL Neutrophil % 40.0 % Lymphocyte % 29.3 % Monocyte % 28.4 % Eosinophil % 0.6 % Basophils % 1.2 % NRBC % 0 % IgG 814 mg/dL IgA 105 mg/dL IgM 724 mg/dL Her serum protein electrophoresis shows a slight further decrease in the M protein level, now to 0.6 g/dL. Impression: 1. Patient with lymphoproliferative disorder with associated IgM monoclonal gammopathy. 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 The MYD88 mutation was detected, consistent with Waldenstr???m macroglobulinemia. 2. She has significant peripheral neuropathy, which I suspect is related. Her other medical illnesses include: 3. Hypertension. 4. Hyperlipidemia. 5. Fibromyalgia. 6. Degenerative arthritis and degenerative disease of the spine. She has associated cervical spinal canal stenosis. 7. She was reportedly found to be positive for the Factor V Leiden mutation. On 01/13/2020 she began a course of treatment with rituximab in combination with ibrutinib 420 mg daily. She completed 4 weekly infusions of rituximab and she then continued the ibrutinib at 420 mg daily. During treatment there was some decline in her renal function, but that subsequently resolved. She has since then been able to continue the ibrutinib at 420 mg daily no adverse effects. She has been showing a very good objective response with improvement in the splenomegaly and the anemia and with a significant decrease in her M protein. However, thus far there is still been no significant change in her clinical status. Plan: She continues ibrutinib 420 mg daily. She will be scheduled for a follow-up visit in 4 weeks. At that time she will be due to begin her second 4-week course of rituximab. In the meantime, I will have her reduce metoprolol to 25 mg once daily, as her blood pressure is on the low side. In addition, she will be given a prescription for trazodone to take at bedtime for insomnia. Signed By: Robin Solorzano M.D. <<Signature on File>>
== END 2020-04-07 08:41 | disposition home or self-care (01) ==
LOC: ONCMED 08:42
PROVIDERS: PCP Physician Assistant; Visit Provider Internal Medicine Medical Oncology
DX: C88.0 Waldenstrom macroglobulinemia (principal); D47.2 Monoclonal gammopathy; G47.00 Insomnia, unspecified; G62.9 Polyneuropathy, unspecified; D64.9 Anemia, unspecified; I10 Essential (primary) hypertension; E78.5 Hyperlipidemia, unspecified; M79.7 Fibromyalgia; M19.90 Unspecified osteoarthritis, unspecified site; M48.02 Spinal stenosis, cervical region; D68.51 Activated protein C resistance; Z79.899 Other long term (current) drug therapy; Z87.891 Personal history of nicotine dependence
CPT/HCPCS: 99214

== ENCOUNTER 2020-05-04 08:24 | Outpatient (CLI) | payer MEDICARE, MEDICAID, SELFPAY ==
[2020-05-04 09:03] LABS: Basophils # 0.1 10^3/uL (0.0-0.1); Basophils % 2.2 %; Eosinophils # 0.2 10^3/uL (0.0-0.8); Eosinophils % 2.9 %; Hemoglobin 12.2 g/dL (11.5-15.3); Lymphocytes # 3.3 10^3/uL (0.8-4.8); Lymphocytes % 50.3 %; Mean Corpuscular HGB Conc 32.1 g/dL (30.0-36.0); Mean Corpuscular Hemoglobin 28.6 pg (28.0-34.0); Mean Platelet Volume 11.5 fL (7.4-10.4); Monocytes # 1.3 10^3/uL (0.2-0.9); Monocytes % 20.4 %; Neutrophils # 1.55 10^3/uL (1.8-7.7); Neutrophils % 23.9 %; Nucleated Red Blood Cells % 0 %; Platelet Count 216 10^3/cmm (130-400); Red Blood Count 4.27 10^6/uL (4.1-5.3); Red Cell Distribution Width 15.2 % (12.1-15.1); White Blood Count 6.5 10^3/uL (4.0-10.0)
[2020-05-04 09:29] LABS: Alanine Aminotransferase 50 U/L (0-33); Albumin Level 4.3 g/dL (3.5-5.2); Alkaline Phosphatase 58 IU/L (35-105); Aspartate Amino Transferase 78 U/L (0-32); Blood Urea Nitrogen 10 mg/dL (6-20); Calcium 8.9 mg/dL (8.5-10.5); Carbon Dioxide 26 mmol/L (22-29); Chloride 96 mmol/L (98-107); Globulin 3.1 g/dL (1.3-4.6); Glomerular Filtration Rate 64.3 mL/min (90-130); Glucose 83 mg/dL (65-115); Osmolality Calculated 269 mOsm/kg (285-295); Sodium 132 mmol/L (136-145); Total Bilirubin 0.6 mg/dL (0.15-1.2); Total Protein 7.4 g/dL (6.6-8.7)
[2020-05-04 09:37] LABS: Lactate Dehydrogenase 269 U/L (135-214)
[2020-05-04 09:51] LABS: Immunoglobulin IGA 111 mg/dL (70-400); Immunoglobulin IGG 910 mg/dL (700-1600)
[2020-05-04 10:12] LABS: Immunoglobulin IGM 804 mg/dL (40-230)
[2020-05-04] MEDS: acetaminophen 325 mg Tablet 650 MG PO (10:45)
[2020-05-04] MEDS: loratadine 10 mg Tablet PO (10:45)
[2020-05-04] MEDS: sodium chloride 0.9% 500 ML 75 ML IV (10:45)
--- NOTE | 2020-05-04 13:41 | ONC FU_ITS ---
[facility] Patient Note Patient: Yulisa Kinney Unit #: [id number]: 1960 Dictated By: Rosetta VictoriaDate of Visit: May 04, 2020 Onc MED Follow-Up/Prog Note Chief Complaint: Waldenstrom macroglobulinemia. History of Present Illness: Ms Kinney is a 59 year-old woman with Waldenstrom macroglobulinemia, presenting with lymphocytosis, anemia, and splenomegly in association with IgM monoclonal gammopathy. She had been seeing Dr. Jasso in neurology for peripheral neuropathy symptoms. She had been diagnosed with bilateral carpal tunnel syndrome and lumbar radiculopathy. On 09/26/2019 she had a follow-up outpatient visit with Lucy Dean. Her laboratory studies included CBC showing hemoglobin 9.7 g and hematocrit 31.5%. The red cell indices were normal. The white blood cell count was elevated 14,900 with the differential showing 23% granulocytes, 68% lymphocytes, and 7% monocytes. The platelet count was normal at 165,000. Comprehensive metabolic profile showed borderline renal function with BUN 15 and creatinine 1.1 mg/dL. The albumin was normal at 4.2 g/dL with calculated serum globulin elevated at 4.4 g/dL. The liver enzymes were normal. Sed rate and CRP levels were normal. TSH was borderline at 4.74 ???IUl/mL. B12 was normal at 568 pg/mL. Folate was greater than 24.0 ng/mL. The serum iron studies showed slightly low transferrin saturation at 18%. Ferritin was normal at 65 ng/mL. Protein electrophoresis showed a monoclonal protein band quantitating at 1.2 g/dL. Immunofixation showed IgM lambda. Dr Solorzano had seen her initially on 10/31/2019. She was noted to have a palpable spleen, but there was no peripheral lymphadenopathy noted. Her repeat CBC showed hemoglobin 9.9 g, white blood cell count 17,000, and platelet count 124,000. The differential showed 70% lymphocytes, 18% neutrophils, 8% monocytes, and 1% eosinophils. Comprehensive metabolic profile was unremarkable except for slightly elevated SGOT at 46/32 U/L. LDH was just slightly elevated at 231/214 U/L. Protein electrophoresis showed an M band quantitating at 1.1 g/dL. The quantitative immunoglobulins included IgG elevated at 1464/230 mg/dL, IgG normal at 1129 mg/dL, and IgA normal at 113 mg/dL. The free light chain assay showed elevated lambda light chain at 53.3 mg/L, kappa light chain 33.8 mg/L and kappa/lambda ratio within the normal range at 0.63. A whole blood flow cytometry on 11/06/2019 showed on monotypic B-cell population which was positive for CD19, CD20, and CD22. There was dim/partial positivity to FMC7 and CD25. A subset showed surface lambda light chain restriction, but the remaining population appeared to be light chain negative. The monotypic B cells were negative for CD5, CD10, CD23, CD11c, CD103, CD123, CD200, CD38, and CD34. The phenotype was felt to be nonspecific. Staging CT scans of the chest, abdomen, and pelvis on 11/14/2019 showed prominent left axillary lymph nodes, the largest measuring 10 mm, an enlarged celiac axis lymph node measuring 11.5 mm, a prominent left periaortic lymph node measuring 7 mm, and prominent inguinal lymph nodes measuring up to 10 mm. The spleen was enlarged measuring 13.1 cm. The right hepatic lobe was noted to be enlarged, but the liver otherwise appeared normal. She underwent bone marrow aspiration/biopsy on 12/05/2019. The interpretation was limited due to the bone marrow aspirate specimens having been hemodiluted without cellular spicules. Bone marrow was noted to be hypercellular on the biopsy specimen, averaging 60 to 90% cellularity. An extensive interstitial and diffuse lymphoid infiltrate was noted to involve a high proportion of the marrow space, estimated at 70 to 80%. The lymphoid cells were noted to be small and round with clumped nuclear chromatin. There was evidence of plasmacytic differentiation. The flow cytometry showed nonspecific phenotype, similar to the whole blood specimen. Iron stores were noted to be reduced, but not absent. Overall, the findings were not definitive, but they were suggestive of lymphoplasmacytic lymphoma. The MYD88 mutation was detected, consistent with Waldenstrom macroglobulinemia. Her other medical illnesses includehypertension, hyperlipidemia, fibromyalgia, and degenerative arthritis/degenerative disease of the spine. She has had multiple surgeries on both the cervical and lumbar spine. She reportedly was found to be positive for the Factor V Leiden mutation. She has history of smoking for 30 years, up to 2 packs of cigarettes daily. She quit smoking in 2006. INTERIM HISTORY: On 01/13/2020 she began a course of treatment with rituximab in combination with ibrutinib 420 mg daily. She completed the initial 4 weekly infusions of rituximab with no adverse effects. She then continued the ibrutinib at 420 mg daily. As of her follow-up visit on 03/04/2020 there had been a significant decline in her M protein, to 0.7 g/dL, and there also was significant improvement in the splenomegaly. There was not a significant change in her clinical status. She continued ibrutinib 420 mg daily. Mrs. Kinney is here today for follow-up. She is due to start her second cycle of 4-week???weekly dosing Rituxan. She continues with ibrutinib as well. She states overall she is doing okay. She states she is still having insomnia and for some reason she did not get her trazodone as prescribed Dr. Solorzano's note at his last visit. She states her blood pressure is doing better on the metopropol 25 mg a day. She states her urinary tract symptoms improved after the antibiotics and she is had no further problems. She denies any new pain. She states she did fall and hit her head in February 2020 and has had a little bit of a wound since then. She is following with [facility] for this. She states it is healing good. She denies any shortness of breath orthopnea. She states she is eating good. Her energy is fair. She denies any diarrhea or constipation. She states her breathing is good. She denies any orthopnea. She has had no skin lesions or rashes. She states she is had a slight headache for the last day or so but thinks this is from not sleeping. She is had no sore throat, mouth sores or difficulty swallowing. She states overall she thinks she is doing pretty good. Her ECOG is 1. Past Medical History: Cervical spinal stenosis Degenerative arthritis Degenerative disease of the spine Factor V Leiden mutation Fibromyalgia Hyperlipidemia Hypertension Past Surgical History: Bunionectomy on the right foot Cervical spine surgery x 4 section x 2 EGD and colonoscopy Facial surgery x 3 Lumbar spine surgery x 2 Multiple oral surgeries Rotator cuff repair x 2 Surgery for dislocated left hip Allergies: Cortisone Acetate, Demerol, Dilaudid, Haldol, and Morphine Sulfate. Medications: Allopurinol 1 Tablet (of 300 mg) Oral daily Atorvastatin Calcium 1 Tablet (of 20 mg) Oral at bedtime B-1 1 Tablet (of 100 mg) Oral daily Calcium Citrate + D 1 Tablet (of 315-200 mg - Units) Oral b.i.d. Cyclobenzaprine HCl 1 - 2 Tablet (of 10 mg) Oral b.i.d. Ferrous Sulfate 1 Tablet (of 325 (65 fe) mg) Oral daily Folic Acid 1 Tablet (of 1 mg) Oral daily Imbruvica 3 Capsule (of 140 mg) Oral daily Imodium A-D 1 Capsule (of 2 mg) Oral daily Levothyroxine Sodium 1 Tablet (of 50 mcg) Oral daily Metoprolol Tartrate 0.5 Tablet (of 25 mg) Oral b.i.d. Multivitamin Adult 1 Tablet Oral daily Prochlorperazine Maleate 1 Tablet (of 10 mg) Oral q 4 hours PRN rOPINIRole HCl 1 Tablet (of 0.25 mg) Oral at bedtime Vitamin C 1 Capsule (of 500 mg) Oral daily Family History: Ms. Kinney's mother at age 71: emphysema. Ms. Kinney's father at age 70: congestive heart failure, and hypertension, and myocardial infarction, and type II diabetes. Ms. Kinney has 1 brother who is alive: coronary artery disease. She has 2 sisters: 1 alive, 1 . Ms. Kinney's first sister's septic shock. Father had diabetes, coronary artery disease, and chronic kidney disease. He at age 70. Her mother had COPD and history of strokes. She at age 71. A sister with septic shock. Another sister is in good health. She has 1 brother who has coronary disease. Her daughter was found to have factor V Leiden mutation in the course of her evaluation following a stillbirth. Social History: Ms. Kinney is and she is a disabled. Ms. Kinney quit smoking 13 years ago but had smoked 2.0 packs/day for 30 years. She drinks occasionally. Ms. Kinney reports the following support systems: lives with spouse, significant other, family, or friends, lives in own house, supportive family/friends willing to assist with needs, and transportation problems exist and will require assistance. Her diet consists of regular meals. She indicates her activity level as: light exercise. She has a history of smoking for 30 years up to 2 packs of cigarettes daily. She quit smoking in 2006. She has just occasional alcohol use. Review Of Symptoms: Constitutional Denies fevers, chills, night sweats, excessive fatigue or weight loss. A little weak at times but overall feels good . She is having insomnia. Allergic/Immunologic No reactions. Eyes Denies significant visual changes. No diplopia. No amaurosis. ENMT Denies changes in hearing, sore throat, mouth sores, difficulty or changes in swallowing ability, and/or sinus drainage. Endocrine No diabetes, thyroid disease or hormone replacement. Denies hot flashes or night sweats. Hematologic/Lymphatic Denies easy bruising or bleeding. The patient denies any tender or palpable lymph nodes. Respiratory Denies dyspnea on exertion, chest pain, cough or hemoptysis. Denies orthopnea. Cardiovascular Denies anginal chest pain, palpitations or orthopnea. Gastrointestinal Denies nausea, vomiting, diarrhea, GI bleeding, or constipation. Denies change in bowel habits and/or stool color, no heartburn or early satiety. Genitourinary (F) No hematuria, hesitancy, incontinence, vaginal bleeding, discharge or other problems with urination. Musculoskeletal Denies joint pain, swelling or redness. No decreased range of motion. Integumentary Denies chronic rashes, inflammation, ulcerations or skin changes. She does have a scalp lesion on the posterior right side from a fall in February 2020. She has been following with Lucy eDan for this. MS Kinney thinks it is healing ok. Neurologic Denies headache, blurred vision, and no areas of focal weakness or numbness. Normal gait. No sensory problems. Psychiatric Denies depression, keshawn or mood swings. She continues to have insomnia. she states she did not get Trazadone at he last visit. Vital Signs: Performed on May 04, 2020 10:04 Height - 59.00 in Weight - 110.2 lbs (LOW) BSA - 1.43 sq.m BMI - 22.26 Temperature - 97.0 F (LOW) Pulse - 75 /min Respiration - 19 /min BP - 129/79 mm(hg) O2 Sat - 97 % Pain - 0,1 - No physically strenuous activity, but ambulatory and able to carry out light or sedentary work (e.g. office work, light house work). (ECOG) Physical Examination: Constitutional Alert, oriented, no acute distress. Skin pink, warm and dry. Head Normocephalic; atraumatic. A 2 cm x 0.5 cm scalp laceration in the right posterior region. It is healthy appearing pink with no active drainage. She does have a covered with a 2 x 2 dressing and is now there is just very minimal serosanguineous drainage at on the dressing. There is no odor. There is no tenderness. Eyes Conjunctivae and sclerae are clear and without icterus. Pupils are reactive and equal. Neck Supple without masses or thyromegaly. No jugular venous distension. Hematologic/Lymphatic No petechiae or purpura. No tender or palpable lymph nodes in the cervical or supraclavicular areas. Respiratory Lungs are clear to auscultation without rhonchi or wheezing. Cardiovascular Regular rate and rhythm of heart without murmurs,clicks, gallops or rubs. Abdomen Non-tender, non-distended, no masses or ascites. Good bowel sounds noted in all quads. No guarding or rebound tenderness. No pulsatile masses. Back/Spine Non-tender to palpation. Extremities No visible deformities, no cyanosis, clubbing or edema. Musculoskeletal No tenderness or swelling, normal range of motion without obvious weakness. Integumentary No rashes or lesions. Neurologic No sensory or motor deficits, normal cerebellar function, normal gait. Psychiatric Alert and oriented times three. Coherent speech. Verbalizes understanding of our discussions today. Laboratory:Test performed on May 04, 2020 08:43 LDH (Total) 269 U/L Sodium 132 mmol/L Potassium 4.0 mmol/L Chloride 96 mmol/L CO2 26 mmol/L Anion Gap 14.0 BUN 10 mg/dL Creatinine 0.9 mg/dL Cr Clearance (Est) 56.5000 mL/min eGFR 64.3 mL/min Glucose 83 mg/dL Calcium 8.9 mg/dL Protein, Total 7.4 g/dL Albumin 4.3 g/dL Globulin 3.1 g/dL Bilirubin, Total 0.6 mg/dL ALT (SGPT) 50 U/L AST (SGOT) 78 U/L Alkaline Phosphatase 58 IU/L WBC 6.5 10 3/uL RBC 4.27 10 6/uL HGB 12.2 g/dL HCT 38.0 % MCV 89.0 fL MCH 28.6 pg MCHC 32.1 g/dL RDW 15.2 % Platelet Count 216 10 3/cmm MPV 11.5 fL Neutrophils 1.55 10 3/uL Lymphocytes 3.3 10 3/uL Monocytes 1.3 10 3/uL Eosinophils 0.2 10 3/uL Basophils 0.1 10 3/uL Neutrophil % 23.9 % Lymphocyte % 50.3 % Monocyte % 20.4 % Eosinophil % 2.9 % Basophils % 2.2 % NRBC % 0 % IgG 910 mg/dL IgA 111 mg/dL IgM 804 mg/dL Impression: 1. Patient with lymphoproliferative disorder with associated IgM monoclonal gammopathy. 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 The MYD88 mutation was detected, consistent with Waldenstr???m macroglobulinemia. 2. She has significant peripheral neuropathy, which I suspect is related. Her other medical illnesses include: 3. Hypertension. 4. Hyperlipidemia. 5. Fibromyalgia. 6. Degenerative arthritis and degenerative disease of the spine. She has associated cervical spinal canal stenosis. 7. She was reportedly found to be positive for the Factor V Leiden mutation. On 01/13/2020 she began a course of treatment with rituximab in combination with ibrutinib 420 mg daily. She completed 4 weekly infusions of rituximab and she then continued the ibrutinib at 420 mg daily. During treatment there was some decline in her renal function, but that subsequently resolved. She has since then been able to continue the ibrutinib at 420 mg daily no adverse effects. She has been showing a very good objective response with improvement in the splenomegaly and the anemia and with a significant decrease in her M protein. However, thus far there is still been no significant change in her clinical status. She is here today to begin her second course of weekly rituximab. She continues with ibrutinib 420 mg daily. Plan: 1. Proceed with cycle 2 weekly Rituxan. 2. Continue ibrutinib 420 mg daily. 3. Blood pressure improved @ metoprolol 25 mg once daily. 4. Continue current plan of care for scalp wound. Will watch and can refer to wound clinic is delayed healing is suspected due to the ibrutinib/Rituxan. 5. Labs from today were reviewed with Ms. Kinney and a copy was given to her. WBC 6.5, hemoglobin 12.2, platelets 216,000 ANC is 1600. Random glucose 83 potassium 4.0 creatinine 0.9 her ALT is stable at 50 and AST is improved at 78 (it was 97 on April 03, 2020). LDH also was improved to 69 space (it was 285 on April 03, 2020). 6. We will plan to see her back in 1 week with CBC CMP to make sure she tolerates the Rituxan well. She has had adverse reactions to the Benadryl before so this has been substituted with Claritin. I also want a watch her scalp wound to make sure it does not have any further healing delay due to her treatment. Also on a watch her CBC to make sure her neutrophil count is improving. Her proteins are pending from today. 7. Ms. Kinney was instructed to contact us in the interim should questions or problems arise. 8. Mrs. Kinney had left diagnostic digital mammogram with CAD on 04/01/2020 this was a 6-month follow-up comparison to July 18, 2019. It reported BI-RADS 2???benign. It was recommended that she return to annual screening with a screening resumed in July 2020. Signed By: Rosetta Victoria-, AOCNP Robin Solorzano MD <<Signature on File>>
[2020-05-05 08:52] LABS: PROTEIN, TOTAL 6.7 g/dL (6.1-8.1)
[2020-05-05 17:02] LABS: ABNORMAL PROTEIN BAND 1 0.7 g/dL (NONE DETECTED); ALBUMIN 3.8 g/dL (3.8-4.8); ALPHA 1 GLOBULIN 0.3 g/dL (0.2-0.3); ALPHA 2 GLOBULIN 0.7 g/dL (0.5-0.9); BETA 1 GLOBULIN 0.4 g/dL (0.4-0.6); BETA 2 GLOBULIN 0.3 g/dL (0.2-0.5); GAMMA GLOBULIN 1.2 g/dL (0.8-1.7)
== END 2020-05-04 08:25 | disposition home or self-care (01) ==
LOC: ONCMED 08:29
PROVIDERS: PCP Physician Assistant; Visit Provider Nurse Practitioner
DX: Z51.12 Encounter for antineoplastic immunotherapy (principal); C88.0 Waldenstrom macroglobulinemia; D72.820 Lymphocytosis (symptomatic); D47.2 Monoclonal gammopathy; D68.51 Activated protein C resistance; I10 Essential (primary) hypertension; E78.5 Hyperlipidemia, unspecified; M79.7 Fibromyalgia; M47.9 Spondylosis, unspecified; M48.02 Spinal stenosis, cervical region
CPT/HCPCS: 80053; 82784; 83615; 84155; 84165; 85025; 96375; 96413; 96415; 99214; J2930; J7040; J9312

== ENCOUNTER → 2020-05-13 09:53 | Outpatient (BNVA) | payer MEDICARE, MEDICAID, SELFPAY | PROVIDERS: PCP Physician Assistant; Referring Provider Physician Assistant; Visit Provider Licensed Practical Nurse | DX: G62.9 Polyneuropathy, unspecified (principal); M96.1 Postlaminectomy syndrome, not elsewhere classified; Z98.890 Other specified postprocedural states | CPT/HCPCS: 99204 ==

== ENCOUNTER 2020-05-25 05:29 | Outpatient (RCR) | payer MEDICARE, MEDICAID, SELFPAY ==
[2020-05-12 09:19] LABS: Basophils # 0.1 10^3/uL (0.0-0.1); Basophils % 1.2 %; Eosinophils % 0.7 %; Hematocrit 35.2 % (37.0-47.0); Hemoglobin 11.7 g/dL (11.5-15.3); Lymphocytes # 2.2 10^3/uL (0.8-4.8); Lymphocytes % 38.4 %; Mean Corpuscular HGB Conc 33.2 g/dL (30.0-36.0); Mean Corpuscular Hemoglobin 28.6 pg (28.0-34.0); Mean Corpuscular Volume 86.1 fL (81-99); Mean Platelet Volume 12.9 fL (7.4-10.4); Monocytes # 1.6 10^3/uL (0.2-0.9); Monocytes % 27.3 %; Neutrophils # 1.84 10^3/uL (1.8-7.7); Neutrophils % 32.1 %; Nucleated Red Blood Cells % 0 %; Platelet Count 196 10^3/cmm (130-400); Red Blood Count 4.09 10^6/uL (4.1-5.3); Red Cell Distribution Width 15.4 % (12.1-15.1); White Blood Count 5.8 10^3/uL (4.0-10.0)
[2020-05-12] MEDS: loratadine 10 mg Tablet PO (11:38)
[2020-05-12] MEDS: acetaminophen 325 mg Tablet 650 MG PO (11:38)
[2020-05-12] MEDS: sodium chloride 0.9% 500 ML 75 ML IV (11:56)
--- NOTE | 2020-05-16 15:07 | ONC FU_ITS ---
[facility] Patient Note Patient: Yulisa Kinney Unit #: [id number]: 1960 Dictated By: Rosetta VictoriaDate of Visit: May 12, 2020 Onc MED Follow-Up/Prog Note Chief Complaint: Waldenstrom macroglobulinemia. History of Present Illness: Ms Kinney is a 59 year-old woman with Waldenstrom macroglobulinemia, presenting with lymphocytosis, anemia, and splenomegly in association with IgM monoclonal gammopathy. She had been seeing Dr. Jasso in neurology for peripheral neuropathy symptoms. She had been diagnosed with bilateral carpal tunnel syndrome and lumbar radiculopathy. On 09/26/2019 she had a follow-up outpatient visit with Lucy Dean. Her laboratory studies included CBC showing hemoglobin 9.7 g and hematocrit 31.5%. The red cell indices were normal. The white blood cell count was elevated 14,900 with the differential showing 23% granulocytes, 68% lymphocytes, and 7% monocytes. The platelet count was normal at 165,000. Comprehensive metabolic profile showed borderline renal function with BUN 15 and creatinine 1.1 mg/dL. The albumin was normal at 4.2 g/dL with calculated serum globulin elevated at 4.4 g/dL. The liver enzymes were normal. Sed rate and CRP levels were normal. TSH was borderline at 4.74 ???IUl/mL. B12 was normal at 568 pg/mL. Folate was greater than 24.0 ng/mL. The serum iron studies showed slightly low transferrin saturation at 18%. Ferritin was normal at 65 ng/mL. Protein electrophoresis showed a monoclonal protein band quantitating at 1.2 g/dL. Immunofixation showed IgM lambda. Dr Solorzano had seen her initially on 10/31/2019. She was noted to have a palpable spleen, but there was no peripheral lymphadenopathy noted. Her repeat CBC showed hemoglobin 9.9 g, white blood cell count 17,000, and platelet count 124,000. The differential showed 70% lymphocytes, 18% neutrophils, 8% monocytes, and 1% eosinophils. Comprehensive metabolic profile was unremarkable except for slightly elevated SGOT at 46/32 U/L. LDH was just slightly elevated at 231/214 U/L. Protein electrophoresis showed an M band quantitating at 1.1 g/dL. The quantitative immunoglobulins included IgG elevated at 1464/230 mg/dL, IgG normal at 1129 mg/dL, and IgA normal at 113 mg/dL. The free light chain assay showed elevated lambda light chain at 53.3 mg/L, kappa light chain 33.8 mg/L and kappa/lambda ratio within the normal range at 0.63. A whole blood flow cytometry on 11/06/2019 showed on monotypic B-cell population which was positive for CD19, CD20, and CD22. There was dim/partial positivity to FMC7 and CD25. A subset showed surface lambda light chain restriction, but the remaining population appeared to be light chain negative. The monotypic B cells were negative for CD5, CD10, CD23, CD11c, CD103, CD123, CD200, CD38, and CD34. The phenotype was felt to be nonspecific. Staging CT scans of the chest, abdomen, and pelvis on 11/14/2019 showed prominent left axillary lymph nodes, the largest measuring 10 mm, an enlarged celiac axis lymph node measuring 11.5 mm, a prominent left periaortic lymph node measuring 7 mm, and prominent inguinal lymph nodes measuring up to 10 mm. The spleen was enlarged measuring 13.1 cm. The right hepatic lobe was noted to be enlarged, but the liver otherwise appeared normal. She underwent bone marrow aspiration/biopsy on 12/05/2019. The interpretation was limited due to the bone marrow aspirate specimens having been hemodiluted without cellular spicules. Bone marrow was noted to be hypercellular on the biopsy specimen, averaging 60 to 90% cellularity. An extensive interstitial and diffuse lymphoid infiltrate was noted to involve a high proportion of the marrow space, estimated at 70 to 80%. The lymphoid cells were noted to be small and round with clumped nuclear chromatin. There was evidence of plasmacytic differentiation. The flow cytometry showed nonspecific phenotype, similar to the whole blood specimen. Iron stores were noted to be reduced, but not absent. Overall, the findings were not definitive, but they were suggestive of lymphoplasmacytic lymphoma. The MYD88 mutation was detected, consistent with Waldenstrom macroglobulinemia. Her other medical illnesses includehypertension, hyperlipidemia, fibromyalgia, and degenerative arthritis/degenerative disease of the spine. She has had multiple surgeries on both the cervical and lumbar spine. She reportedly was found to be positive for the Factor V Leiden mutation. She has history of smoking for 30 years, up to 2 packs of cigarettes daily. She quit smoking in 2006. INTERIM HISTORY: On 01/13/2020 she began a course of treatment with rituximab in combination with ibrutinib 420 mg daily. She completed the initial 4 weekly infusions of rituximab with no adverse effects. She then continued the ibrutinib at 420 mg daily. As of her follow-up visit on 03/04/2020 there had been a significant decline in her M protein, to 0.7 g/dL, and there also was significant improvement in the splenomegaly. There was not a significant change in her clinical status. She continued ibrutinib 420 mg daily. Mrs. Kinney is here today for follow-up. She is due for cycle 2-week 2 of weekly Rituxan. She continues with ibrutinib as well. She continues to do well overall. She states she fell yesterday but she thinks she just tripped over a box. She states she just turned around and fell but there was a box in her way. She denies any syncope or near syncope. She had no one-sided weakness or numbness. She denies any dizziness prior to her fall. She has had no apparent injury. She states she had some bruising on her knees but that as much better today. She denies any new pain. She denies any fever or chills. She has had no change in her scalp wound. She denies any shortness of breath orthopnea. She denies chest pain or palpitations. She denies nausea or vomiting. She denies any neuropathy symptoms. She states that her insomnia is slightly better but she is only taken 25 mg of trazodone at night is not working as good as she thought it would. We discussed increasing her to 50 mg at at bedtime and if not better in 3 to 4 days she may titrate up to 100 mg at bedtime. She is instructed to call us in the interim should questions or problems arise. Her ECOG remains at 1. She is tolerating treatment well thus far. Past Medical History: Cervical spinal stenosis Degenerative arthritis Degenerative disease of the spine Factor V Leiden mutation Fibromyalgia Hyperlipidemia Hypertension Past Surgical History: Bunionectomy on the right foot Cervical spine surgery x 4 section x 2 EGD and colonoscopy Facial surgery x 3 Lumbar spine surgery x 2 Multiple oral surgeries Rotator cuff repair x 2 Surgery for dislocated left hip Allergies: Cortisone Acetate, Demerol, Dilaudid, Haldol, and Morphine Sulfate. Medications: Allopurinol 1 Tablet (of 300 mg) Oral daily Atorvastatin Calcium 1 Tablet (of 20 mg) Oral at bedtime B-1 1 Tablet (of 100 mg) Oral daily Calcium Citrate + D 1 Tablet (of 315-200 mg - Units) Oral b.i.d. Cyclobenzaprine HCl 1 - 2 Tablet (of 10 mg) Oral b.i.d. Ferrous Sulfate 1 Tablet (of 325 (65 fe) mg) Oral daily Folic Acid 1 Tablet (of 1 mg) Oral daily Imbruvica 3 Capsule (of 140 mg) Oral daily Imodium A-D 1 Capsule (of 2 mg) Oral daily Levothyroxine Sodium 1 Tablet (of 50 mcg) Oral daily Metoprolol Tartrate 0.5 Tablet (of 25 mg) Oral b.i.d. Multivitamin Adult 1 Tablet Oral daily Prochlorperazine Maleate 1 Tablet (of 10 mg) Oral q 4 hours PRN rOPINIRole HCl 1 Tablet (of 0.25 mg) Oral at bedtime traZODone HCl 0.5 - 1 Tablet (of 50 mg) Oral at bedtime Vitamin C 1 Capsule (of 500 mg) Oral daily Family History: Ms. Kinney's mother at age 71: emphysema. Ms. Kinney's father at age 70: congestive heart failure, and hypertension, and myocardial infarction, and type II diabetes. Ms. Kinney has 1 brother who is alive: coronary artery disease. She has 2 sisters: 1 alive, 1 . Ms. Kinney's first sister's septic shock. Father had diabetes, coronary artery disease, and chronic kidney disease. He at age 70. Her mother had COPD and history of strokes. She at age 71. A sister with septic shock. Another sister is in good health. She has 1 brother who has coronary disease. Her daughter was found to have factor V Leiden mutation in the course of her evaluation following a stillbirth. Social History: Ms. Kinney is and she is a disabled. Ms. Kinney quit smoking 13 years ago but had smoked 2.0 packs/day for 30 years. She drinks occasionally. Ms. Kinney reports the following support systems: lives with spouse, significant other, family, or friends, lives in own house, supportive family/friends willing to assist with needs, and transportation problems exist and will require assistance. Her diet consists of regular meals. She indicates her activity level as: light exercise. She has a history of smoking for 30 years up to 2 packs of cigarettes daily. She quit smoking in 2006. She has just occasional alcohol use. Review Of Symptoms: Constitutional Denies fevers, chills, night sweats, excessive fatigue or weight loss. A little weak at times but overall feels good . She is having some improvement in her insomnia. She fell Monday-tripped over a box-no apparent injury-some localized bruising on knees. Allergic/Immunologic No reactions. Eyes Denies significant visual changes. No diplopia. No amaurosis. ENMT Denies changes in hearing, sore throat, mouth sores, difficulty or changes in swallowing ability, and/or sinus drainage. Endocrine No diabetes, thyroid disease or hormone replacement. Denies hot flashes or night sweats. Hematologic/Lymphatic Denies easy bruising or bleeding. The patient denies any tender or palpable lymph nodes. Respiratory Denies dyspnea on exertion, chest pain, cough or hemoptysis. Denies orthopnea. Cardiovascular Denies anginal chest pain, palpitations or orthopnea. Gastrointestinal Denies nausea, vomiting, diarrhea, GI bleeding, or constipation. Denies change in bowel habits and/or stool color, no heartburn or early satiety. Genitourinary (F) No hematuria, hesitancy, incontinence, vaginal bleeding, discharge or other problems with urination. Musculoskeletal Denies joint pain, swelling or redness. No decreased range of motion. Integumentary Denies chronic rashes, inflammation, ulcerations or skin changes. She does have a scalp lesion on the posterior right side from a fall in February 2020. She has been following with Lucy Dean for this. MS Kinney thinks it is healing ok. Neurologic Denies headache, blurred vision, and no areas of focal weakness or numbness. Normal gait. No sensory problems. Psychiatric Denies depression, keshawn or mood swings. She continues to have insomnia. she states she did not get Trazadone at he last visit. Vital Signs: Performed on May 12, 2020 10:27 Height - 59.00 in Weight - 108.4 lbs (LOW) BSA - 1.42 sq.m BMI - 21.89 Temperature - 98.3 F (LOW) Pulse - 73 /min Respiration - 22 /min BP - 143/88 mm(hg) (HIGH) O2 Sat - 98 % Pain - 0,1 - No physically strenuous activity, but ambulatory and able to carry out light or sedentary work (e.g. office work, light house work). (ECOG) Physical Examination: Constitutional Alert, oriented, no acute distress. Skin pink, warm and dry. Eyes Conjunctivae and sclerae are clear and without icterus. Pupils are reactive and equal. ENMT No oral exudates, ulcers, masses, thrush or mucositis. Oropharynx clear. Tongue normal. Neck Supple without masses or thyromegaly. No jugular venous distension. Hematologic/Lymphatic No petechiae or purpura. No tender or palpable lymph nodes in the cervical or supraclavicular areas. Respiratory Lungs are clear to auscultation without rhonchi or wheezing. Cardiovascular Regular rate and rhythm of heart without murmurs,clicks, gallops or rubs. Abdomen Non-tender, non-distended, no masses or ascites. Good bowel sounds noted in all quads. No guarding or rebound tenderness. No pulsatile masses. Back/Spine Non-tender to palpation. Extremities No visible deformities, no cyanosis, clubbing or edema. Musculoskeletal No tenderness or swelling, normal range of motion without obvious weakness. Integumentary No rashes or lesions. Neurologic No sensory or motor deficits, normal cerebellar function, normal gait. Psychiatric Alert and oriented times three. Coherent speech. Verbalizes understanding of our discussions today. Laboratory:Test performed on May 12, 2020 10:00 Chloride 98 mmol/L CO2 23 mmol/L BUN 8 mg/dL Creatinine 0.6 mg/dL Cr Clearance (Est) 84.7500 mL/min eGFR 102.7 mL/min Glucose 91 mg/dL Albumin 3.5 g/dL Globulin 2.4 g/dL Bilirubin, Total 0.5 mg/dL Alkaline Phosphatase 40 IU/L Test performed on May 12, 2020 09:06 WBC 5.8 10 3/uL RBC 4.09 10 6/uL HGB 11.7 g/dL HCT 35.2 % MCV 86.1 fL MCH 28.6 pg MCHC 33.2 g/dL RDW 15.4 % Platelet Count 196 10 3/cmm MPV 12.9 fL Neutrophils 1.84 10 3/uL Lymphocytes 2.2 10 3/uL Monocytes 1.6 10 3/uL Eosinophils 0.0 10 3/uL Basophils 0.1 10 3/uL Neutrophil % 32.1 % Lymphocyte % 38.4 % Monocyte % 27.3 % Eosinophil % 0.7 % Basophils % 1.2 % NRBC % 0 % Impression: 1. Patient with lymphoproliferative disorder with associated IgM monoclonal gammopathy. 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 The MYD88 mutation was detected, consistent with Waldenstr???m macroglobulinemia. 2. She has significant peripheral neuropathy, which I suspect is related. Her other medical illnesses include: 3. Hypertension. 4. Hyperlipidemia. 5. Fibromyalgia. 6. Degenerative arthritis and degenerative disease of the spine. She has associated cervical spinal canal stenosis. 7. She was reportedly found to be positive for the Factor V Leiden mutation. On 01/13/2020 she began a course of treatment with rituximab in combination with ibrutinib 420 mg daily. She completed 4 weekly infusions of rituximab and she then continued the ibrutinib at 420 mg daily. During treatment there was some decline in her renal function, but that subsequently resolved. She has since then been able to continue the ibrutinib at 420 mg daily no adverse effects. She has been showing a very good objective response with improvement in the splenomegaly and the anemia and with a significant decrease in her M protein. However, thus far there is still been no significant change in her clinical status. She is here today for week2/4 of cycle 2 weekly rituximab. She continues with ibrutinib 420 mg daily. Plan: 1. Proceed with cycle 2 week 2/4- weekly Rituxan. 2. Continue ibrutinib 420 mg daily. 3. Monitor blood pressure intermittently as her metoprolol was recently decreased to 25 mg daily. Her BP today Was 143/88 on initial exam. 4. Labs from today were reviewed with Ms. Kinney and a copy was given to her. WBC 5.8, hemoglobin 11.7, platelets 196,000 ANC is 1800. 5. We will plan to see her back in 1 week with CBC CMP to make sure she tolerates the Rituxan well. She has had adverse reactions to the Benadryl before so this has been substituted with Claritin. 6. Ms. Kinney was instructed to contact us in the interim should questions or problems arise. 7. She was advised she can increase her trazodone 50 mg at night just to see if this will help with her insomnia- if this is not improving over the next 3 to 4 days she may increase to 100 mg a day just. She will let us know if that is not effective at her next follow-up in 1 week. 8. Mrs. Kinney had left diagnostic digital mammogram with CAD on 04/01/2020 this was a 6-month follow-up comparison to July 18, 2019. It reported BI-RADS 2???benign. It was recommended that she return to annual screening with a screening resumed in July 2020. 9. Proteins: Her abnormal protein from 05/04/2020 was reported at 0.7 restricted band (M spike) migrating in the gamma region. The abnormal protein on 04/03/2020 was 0.6 and again reported restricted band (M spike) migrating in the gamma region. Her proteins are stable. Signed By: Rosetta Victoria-, [facility] Robin Solorzano MD <<Signature on File>>
[2020-05-18 09:01] LABS: Basophils # 0.1 10^3/uL (0.0-0.1); Basophils % 1.6 %; Eosinophils # 0.1 10^3/uL (0.0-0.8); Eosinophils % 1.3 %; Hematocrit 35.3 % (37.0-47.0); Hemoglobin 11.3 g/dL (11.5-15.3); Lymphocytes # 3.3 10^3/uL (0.8-4.8); Lymphocytes % 47.6 %; Mean Corpuscular Hemoglobin 28.8 pg (28.0-34.0); Mean Corpuscular Volume 90.1 fL (81-99); Mean Platelet Volume 11.2 fL (7.4-10.4); Monocytes # 1.8 10^3/uL (0.2-0.9); Monocytes % 26.1 %; Neutrophils # 1.61 10^3/uL (1.8-7.7); Neutrophils % 23.3 %; Nucleated Red Blood Cells % 0 %; Platelet Count 167 10^3/cmm (130-400); Red Blood Count 3.92 10^6/uL (4.1-5.3); Red Cell Distribution Width 15.8 % (12.1-15.1); White Blood Count 6.9 10^3/uL (4.0-10.0)
[2020-05-18 10:12] LABS: Alanine Aminotransferase 58 U/L (0-33); Alkaline Phosphatase 44 IU/L (35-105); Aspartate Amino Transferase 68 U/L (0-32); Blood Urea Nitrogen 11 mg/dL (6-20); Calcium 8.8 mg/dL (8.5-10.5); Carbon Dioxide 27 mmol/L (22-29); Chloride 97 mmol/L (98-107); Globulin 2.6 g/dL (1.3-4.6); Glomerular Filtration Rate 85.9 mL/min (90-130); Glucose 97 mg/dL (65-115); Osmolality Calculated 274 mOsm/kg (285-295); Sodium 134 mmol/L (136-145); Total Bilirubin 0.5 mg/dL (0.15-1.2); Total Protein 6.6 g/dL (6.6-8.7)
[2020-05-18] MEDS: loratadine 10 mg Tablet PO (10:34)
[2020-05-18] MEDS: acetaminophen 325 mg Tablet 650 MG PO (10:34)
[2020-05-18] MEDS: sodium chloride 0.9% 500 ML 75 ML IV (10:34)
--- NOTE | 2020-05-18 10:41 | ONC FU_ITS ---
[facility] Patient Note Patient: Yulisa Kinney Unit #: [id number]: 1960 Dictated By: Rosetta VictoriaDate of Visit: May 18, 2020 Onc MED Follow-Up/Prog Note Chief Complaint: Waldenstrom macroglobulinemia. History of Present Illness: Ms Kinney is a 59 year-old woman with Waldenstrom macroglobulinemia, presenting with lymphocytosis, anemia, and splenomegly in association with IgM monoclonal gammopathy. She had been seeing Dr. Jasso in neurology for peripheral neuropathy symptoms. She had been diagnosed with bilateral carpal tunnel syndrome and lumbar radiculopathy. On 09/26/2019 she had a follow-up outpatient visit with Lucy Dean. Her laboratory studies included CBC showing hemoglobin 9.7 g and hematocrit 31.5%. The red cell indices were normal. The white blood cell count was elevated 14,900 with the differential showing 23% granulocytes, 68% lymphocytes, and 7% monocytes. The platelet count was normal at 165,000. Comprehensive metabolic profile showed borderline renal function with BUN 15 and creatinine 1.1 mg/dL. The albumin was normal at 4.2 g/dL with calculated serum globulin elevated at 4.4 g/dL. The liver enzymes were normal. Sed rate and CRP levels were normal. TSH was borderline at 4.74 ???IUl/mL. B12 was normal at 568 pg/mL. Folate was greater than 24.0 ng/mL. The serum iron studies showed slightly low transferrin saturation at 18%. Ferritin was normal at 65 ng/mL. Protein electrophoresis showed a monoclonal protein band quantitating at 1.2 g/dL. Immunofixation showed IgM lambda. Dr Solorzano had seen her initially on 10/31/2019. She was noted to have a palpable spleen, but there was no peripheral lymphadenopathy noted. Her repeat CBC showed hemoglobin 9.9 g, white blood cell count 17,000, and platelet count 124,000. The differential showed 70% lymphocytes, 18% neutrophils, 8% monocytes, and 1% eosinophils. Comprehensive metabolic profile was unremarkable except for slightly elevated SGOT at 46/32 U/L. LDH was just slightly elevated at 231/214 U/L. Protein electrophoresis showed an M band quantitating at 1.1 g/dL. The quantitative immunoglobulins included IgG elevated at 1464/230 mg/dL, IgG normal at 1129 mg/dL, and IgA normal at 113 mg/dL. The free light chain assay showed elevated lambda light chain at 53.3 mg/L, kappa light chain 33.8 mg/L and kappa/lambda ratio within the normal range at 0.63. A whole blood flow cytometry on 11/06/2019 showed on monotypic B-cell population which was positive for CD19, CD20, and CD22. There was dim/partial positivity to FMC7 and CD25. A subset showed surface lambda light chain restriction, but the remaining population appeared to be light chain negative. The monotypic B cells were negative for CD5, CD10, CD23, CD11c, CD103, CD123, CD200, CD38, and CD34. The phenotype was felt to be nonspecific. Staging CT scans of the chest, abdomen, and pelvis on 11/14/2019 showed prominent left axillary lymph nodes, the largest measuring 10 mm, an enlarged celiac axis lymph node measuring 11.5 mm, a prominent left periaortic lymph node measuring 7 mm, and prominent inguinal lymph nodes measuring up to 10 mm. The spleen was enlarged measuring 13.1 cm. The right hepatic lobe was noted to be enlarged, but the liver otherwise appeared normal. She underwent bone marrow aspiration/biopsy on 12/05/2019. The interpretation was limited due to the bone marrow aspirate specimens having been hemodiluted without cellular spicules. Bone marrow was noted to be hypercellular on the biopsy specimen, averaging 60 to 90% cellularity. An extensive interstitial and diffuse lymphoid infiltrate was noted to involve a high proportion of the marrow space, estimated at 70 to 80%. The lymphoid cells were noted to be small and round with clumped nuclear chromatin. There was evidence of plasmacytic differentiation. The flow cytometry showed nonspecific phenotype, similar to the whole blood specimen. Iron stores were noted to be reduced, but not absent. Overall, the findings were not definitive, but they were suggestive of lymphoplasmacytic lymphoma. The MYD88 mutation was detected, consistent with Waldenstrom macroglobulinemia. Her other medical illnesses includehypertension, hyperlipidemia, fibromyalgia, and degenerative arthritis/degenerative disease of the spine. She has had multiple surgeries on both the cervical and lumbar spine. She reportedly was found to be positive for the Factor V Leiden mutation. She has history of smoking for 30 years, up to 2 packs of cigarettes daily. She quit smoking in 2006. INTERIM HISTORY: On 01/13/2020 she began a course of treatment with rituximab in combination with ibrutinib 420 mg daily. She completed the initial 4 weekly infusions of rituximab with no adverse effects. She then continued the ibrutinib at 420 mg daily. As of her follow-up visit on 03/04/2020 there had been a significant decline in her M protein, to 0.7 g/dL, and there also was significant improvement in the splenomegaly. There was not a significant change in her clinical status. She continued ibrutinib 420 mg daily. Mrs. Kinney is here today for follow-up. She is due for cycle 2-week 3 of weekly Rituxan. She continues with ibrutinib as well. She has no new concerns regarding the Rituxan. She is tolerating it well. She has been to see neurology and is scheduled for a noncontrast CT of the cervical and lumbar spine for what appears to be some bone contusions in those areas. She reports that these areas are same previous cervical/lumbar surgeries that did not belt turner well . She denies any pain in these areas and states that they are numb. She has had no fever or chills. She denies any mouth sores, sore throat or difficulty swallowing. She denies any diarrhea or constipation. She states her bowels are working well. She is eating well. Energy is good. She continues to have chronic pain is related to her lumbar/cervical issues but is well controlled currently. She has no new concerns today. Her ECOG is 1. Past Medical History: Cervical spinal stenosis Degenerative arthritis Degenerative disease of the spine Factor V Leiden mutation Fibromyalgia Hyperlipidemia Hypertension Past Surgical History: Bunionectomy on the right foot Cervical spine surgery x 4 section x 2 EGD and colonoscopy Facial surgery x 3 Lumbar spine surgery x 2 Multiple oral surgeries Rotator cuff repair x 2 Surgery for dislocated left hip Allergies: Cortisone Acetate, Demerol, Dilaudid, Haldol, and Morphine Sulfate. Medications: Allopurinol 1 Tablet (of 300 mg) Oral daily Atorvastatin Calcium 1 Tablet (of 20 mg) Oral at bedtime B-1 1 Tablet (of 100 mg) Oral daily Calcium Citrate + D 1 Tablet (of 315-200 mg - Units) Oral b.i.d. Cyclobenzaprine HCl 1 - 2 Tablet (of 10 mg) Oral b.i.d. Ferrous Sulfate 1 Tablet (of 325 (65 fe) mg) Oral daily Folic Acid 1 Tablet (of 1 mg) Oral daily Imbruvica 3 Capsule (of 140 mg) Oral daily Imodium A-D 1 Capsule (of 2 mg) Oral daily Levothyroxine Sodium 1 Tablet (of 50 mcg) Oral daily Metoprolol Tartrate 0.5 Tablet (of 25 mg) Oral b.i.d. Multivitamin Adult 1 Tablet Oral daily Prochlorperazine Maleate 1 Tablet (of 10 mg) Oral q 4 hours PRN rOPINIRole HCl 1 Tablet (of 0.25 mg) Oral at bedtime traZODone HCl 0.5 - 1 Tablet (of 50 mg) Oral at bedtime Vitamin C 1 Capsule (of 500 mg) Oral daily Family History: Ms. Kinney's mother at age 71: emphysema. Ms. Kinney's father at age 70: congestive heart failure, and hypertension, and myocardial infarction, and type II diabetes. Ms. Kinney has 1 brother who is alive: coronary artery disease. She has 2 sisters: 1 alive, 1 . Ms. Kinney's first sister's septic shock. Father had diabetes, coronary artery disease, and chronic kidney disease. He at age 70. Her mother had COPD and history of strokes. She at age 71. A sister with septic shock. Another sister is in good health. She has 1 brother who has coronary disease. Her daughter was found to have factor V Leiden mutation in the course of her evaluation following a stillbirth. Social History: Ms. Kinney is and she is a disabled. Ms. Kinney quit smoking 13 years ago but had smoked 2.0 packs/day for 30 years. She drinks occasionally. Ms. Kinney reports the following support systems: lives with spouse, significant other, family, or friends, lives in own house, supportive family/friends willing to assist with needs, and transportation problems exist and will require assistance. Her diet consists of regular meals. She indicates her activity level as: light exercise. She has a history of smoking for 30 years up to 2 packs of cigarettes daily. She quit smoking in 2006. She has just occasional alcohol use. Review Of Symptoms: Constitutional Denies fevers, chills, night sweats, excessive fatigue or weight loss. Allergic/Immunologic No reactions. Eyes Denies significant visual changes. No diplopia. No amaurosis. ENMT Denies changes in hearing, sore throat, mouth sores, difficulty or changes in swallowing ability, and/or sinus drainage. Hematologic/Lymphatic Denies easy bruising or bleeding. The patient denies any tender or palpable lymph nodes. Respiratory Denies dyspnea on exertion, chest pain, cough or hemoptysis. Denies orthopnea. Cardiovascular Denies anginal chest pain, palpitations or orthopnea. Gastrointestinal Denies nausea, vomiting, diarrhea, GI bleeding, or constipation. Denies change in bowel habits and/or stool color, no heartburn or early satiety. Genitourinary (F) No hematuria, hesitancy, incontinence, vaginal bleeding, discharge or other problems with urination. Musculoskeletal Denies joint pain, swelling or redness. No decreased range of motion. Integumentary Denies chronic rashes, inflammation, ulcerations or skin changes. She does have a scalp lesion on the posterior right side from a fall in February 2020. She has been following with Lucy Dean for this. MS Kinney thinks it is healing ok. Neurologic Denies headache, blurred vision, and no areas of focal weakness or numbness. Normal gait. No sensory problems. Psychiatric Denies depression, keshawn or mood swings. She continues to have insomnia. she states she did not get Trazadone at he last visit. Vital Signs: Performed on May 18, 2020 09:42 Height - 59.00 in Weight - 110.8 lbs (HIGH) BSA - 1.43 sq.m BMI - 22.38 Temperature - 97.9 F (LOW) Pulse - 80 /min Respiration - 15 /min BP - 130/78 mm(hg) O2 Sat - 99 % Pain - 0,1 - No physically strenuous activity, but ambulatory and able to carry out light or sedentary work (e.g. office work, light house work). (ECOG) Physical Examination: Constitutional Alert, oriented, no acute distress. Skin pink, warm and dry. Eyes Conjunctivae and sclerae are clear and without icterus. Pupils are reactive and equal. Neck Supple without masses or thyromegaly. No jugular venous distension. Hematologic/Lymphatic No petechiae or purpura. No tender or palpable lymph nodes in the cervical or supraclavicular areas. Respiratory Lungs are clear to auscultation without rhonchi or wheezing. Cardiovascular Regular rate and rhythm of heart without murmurs,clicks, gallops or rubs. Abdomen Non-tender, non-distended, no masses or ascites. Good bowel sounds noted in all quads. No guarding or rebound tenderness. No pulsatile masses. Back/Spine Non-tender to palpation. Area of spine abnormality on cervical spine that appears to be potential bone protrusion but not breaking the skin. She is following with neurology for this. Extremities No visible deformities, no cyanosis, clubbing or edema. Musculoskeletal No tenderness or swelling, normal range of motion without obvious weakness. Integumentary No rashes or lesions. Neurologic No sensory or motor deficits, normal cerebellar function, normal gait. Psychiatric Alert and oriented times three. Coherent speech. Verbalizes understanding of our discussions today. Laboratory:Test performed on May 18, 2020 09:25 Sodium 134 mmol/L Potassium 4.0 mmol/L Chloride 97 mmol/L CO2 27 mmol/L Anion Gap 14.0 BUN 11 mg/dL Creatinine 0.7 mg/dL Cr Clearance (Est) 72.6400 mL/min eGFR 85.9 mL/min Glucose 97 mg/dL Calcium 8.8 mg/dL Protein, Total 6.6 g/dL Albumin 4.0 g/dL Globulin 2.6 g/dL Bilirubin, Total 0.5 mg/dL ALT (SGPT) 58 U/L AST (SGOT) 68 U/L Alkaline Phosphatase 44 IU/L Test performed on May 18, 2020 08:40 WBC 6.9 10 3/uL RBC 3.92 10 6/uL HGB 11.3 g/dL HCT 35.3 % MCV 90.1 fL MCH 28.8 pg MCHC 32.0 g/dL RDW 15.8 % Platelet Count 167 10 3/cmm MPV 11.2 fL Neutrophils 1.61 10 3/uL Lymphocytes 3.3 10 3/uL Monocytes 1.8 10 3/uL Eosinophils 0.1 10 3/uL Basophils 0.1 10 3/uL Neutrophil % 23.3 % Lymphocyte % 47.6 % Monocyte % 26.1 % Eosinophil % 1.3 % Basophils % 1.6 % NRBC % 0 % Impression: 1. Patient with lymphoproliferative disorder with associated IgM monoclonal gammopathy. 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 The MYD88 mutation was detected, consistent with Waldenstr???m macroglobulinemia. 2. She has significant peripheral neuropathy, which I suspect is related. Her other medical illnesses include: 3. Hypertension. 4. Hyperlipidemia. 5. Fibromyalgia. 6. Degenerative arthritis and degenerative disease of the spine. She has associated cervical spinal canal stenosis. 7. She was reportedly found to be positive for the Factor V Leiden mutation. On 01/13/2020 she began a course of treatment with rituximab in combination with ibrutinib 420 mg daily. She completed 4 weekly infusions of rituximab and she then continued the ibrutinib at 420 mg daily. During treatment there was some decline in her renal function, but that subsequently resolved. She has since then been able to continue the ibrutinib at 420 mg daily no adverse effects. She has been showing a very good objective response with improvement in the splenomegaly and the anemia and with a significant decrease in her M protein. However, thus far there is still been no significant change in her clinical status. She is here today for week 3/4 of cycle 2 weekly rituximab. She continues with ibrutinib 420 mg daily. Plan: 1. Proceed with cycle 4 week 2/4- weekly Rituxan. 2. Continue ibrutinib 420 mg daily. 3. Increase metoprolol to 25 mg am and 50 mg pm due to blood pressure elevation with diastyolic readings 95-105 and HR 95-105. New script sent to [facility]. 4. Labs from today were reviewed with Ms. Kinney and a copy was given to her. WBC 6.9, hemoglobin 11.3, platelets 167,000 ANC is 1600. ALT/AST stable at 58/68. 5. We will plan to see her back in 1 week with CBC CMP to make sure she tolerates the Rituxan well. She has had adverse reactions to the Benadryl before so this has been substituted with Claritin. 6. Ms. Kinney was instructed to contact us in the interim should questions or problems arise. 7. She was advised she can titrate her trazodone 50 mg at night just to see if this will help with her insomnia- if this is not improving over the next 3 to 4 days she may increase to 150 mg a day. 8. Mrs. Kinney had left diagnostic digital mammogram with CAD on 04/01/2020 this was a 6-month follow-up comparison to July 18, 2019. It reported BI-RADS 2???benign. It was recommended that she return to annual screening with a screening resumed in July 2020. 9. Proteins: Her abnormal protein from 05/04/2020 was reported at 0.7 restricted band (M spike) migrating in the gamma region. The abnormal protein on 04/03/2020 was 0.6 and again reported restricted band (M spike) migrating in the gamma region. Her proteins are stable. 10. She is scheduledd for non contrast CT of cervical and lumbar spine next week per neurology for evalaution of what appears to be bone protrusion at the cervical and lumbar spine areas. Signed By: Rosetta Victoria-, AOJOSHP Robin Solorzano MD <<Signature on File>>
[2020-05-25 09:35] LABS: Basophils # 0.1 10^3/uL (0.0-0.1); Basophils % 0.8 %; Eosinophils # 0.1 10^3/uL (0.0-0.8); Eosinophils % 0.9 %; Hematocrit 35.9 % (37.0-47.0); Hemoglobin 11.3 g/dL (11.5-15.3); Lymphocytes # 2.9 10^3/uL (0.8-4.8); Mean Corpuscular HGB Conc 31.5 g/dL (30.0-36.0); Mean Corpuscular Hemoglobin 28.8 pg (28.0-34.0); Mean Corpuscular Volume 91.6 fL (81-99); Monocytes # 2.2 10^3/uL (0.2-0.9); Monocytes % 21.3 %; Neutrophils # 4.81 10^3/uL (1.8-7.7); Neutrophils % 47.7 %; Nucleated Red Blood Cells % 0 %; Platelet Count 162 10^3/cmm (130-400); Red Blood Count 3.92 10^6/uL (4.1-5.3); Red Cell Distribution Width 16.1 % (12.1-15.1); White Blood Count 10.1 10^3/uL (4.0-10.0)
[2020-05-25 10:01] LABS: Alanine Aminotransferase 39 U/L (0-33); Albumin Level 3.9 g/dL (3.5-5.2); Alkaline Phosphatase 50 IU/L (35-105); Aspartate Amino Transferase 54 U/L (0-32); Blood Urea Nitrogen 9 mg/dL (6-20); Calcium 8.9 mg/dL (8.5-10.5); Carbon Dioxide 25 mmol/L (22-29); Chloride 97 mmol/L (98-107); Globulin 2.9 g/dL (1.3-4.6); Glomerular Filtration Rate 85.9 mL/min (90-130); Glucose 86 mg/dL (65-115); Osmolality Calculated 274 mOsm/kg (285-295); Sodium 133 mmol/L (136-145); Total Bilirubin 0.7 mg/dL (0.15-1.2); Total Protein 6.8 g/dL (6.6-8.7)
[2020-05-25 10:06] LABS: Lactate Dehydrogenase 287 U/L (135-214)
[2020-05-25] MEDS: acetaminophen 325 mg Tablet 650 MG PO (11:08)
[2020-05-25] MEDS: loratadine 10 mg Tablet PO (11:08)
[2020-05-25] MEDS: sodium chloride 0.9% 500 ML 75 ML IV (11:08)
--- NOTE | 2020-05-31 15:33 | ONC FU_ITS ---
[facility] Patient Note Patient: Yulisa Kinney Unit #: [id number]: 1960 Dictated By: Rosetta VictoriaDate of Visit: May 25, 2020 Onc MED Follow-Up/Prog Note Chief Complaint: Waldenstrom macroglobulinemia. History of Present Illness: Ms Kinney is a 59 year-old woman with Waldenstrom macroglobulinemia, presenting with lymphocytosis, anemia, and splenomegly in association with IgM monoclonal gammopathy. She had been seeing Dr. Jasso in neurology for peripheral neuropathy symptoms. She had been diagnosed with bilateral carpal tunnel syndrome and lumbar radiculopathy. On 09/26/2019 she had a follow-up outpatient visit with Lucy Dean. Her laboratory studies included CBC showing hemoglobin 9.7 g and hematocrit 31.5%. The red cell indices were normal. The white blood cell count was elevated 14,900 with the differential showing 23% granulocytes, 68% lymphocytes, and 7% monocytes. The platelet count was normal at 165,000. Comprehensive metabolic profile showed borderline renal function with BUN 15 and creatinine 1.1 mg/dL. The albumin was normal at 4.2 g/dL with calculated serum globulin elevated at 4.4 g/dL. The liver enzymes were normal. Sed rate and CRP levels were normal. TSH was borderline at 4.74 ???IUl/mL. B12 was normal at 568 pg/mL. Folate was greater than 24.0 ng/mL. The serum iron studies showed slightly low transferrin saturation at 18%. Ferritin was normal at 65 ng/mL. Protein electrophoresis showed a monoclonal protein band quantitating at 1.2 g/dL. Immunofixation showed IgM lambda. Dr Solorzano had seen her initially on 10/31/2019. She was noted to have a palpable spleen, but there was no peripheral lymphadenopathy noted. Her repeat CBC showed hemoglobin 9.9 g, white blood cell count 17,000, and platelet count 124,000. The differential showed 70% lymphocytes, 18% neutrophils, 8% monocytes, and 1% eosinophils. Comprehensive metabolic profile was unremarkable except for slightly elevated SGOT at 46/32 U/L. LDH was just slightly elevated at 231/214 U/L. Protein electrophoresis showed an M band quantitating at 1.1 g/dL. The quantitative immunoglobulins included IgG elevated at 1464/230 mg/dL, IgG normal at 1129 mg/dL, and IgA normal at 113 mg/dL. The free light chain assay showed elevated lambda light chain at 53.3 mg/L, kappa light chain 33.8 mg/L and kappa/lambda ratio within the normal range at 0.63. A whole blood flow cytometry on 11/06/2019 showed on monotypic B-cell population which was positive for CD19, CD20, and CD22. There was dim/partial positivity to FMC7 and CD25. A subset showed surface lambda light chain restriction, but the remaining population appeared to be light chain negative. The monotypic B cells were negative for CD5, CD10, CD23, CD11c, CD103, CD123, CD200, CD38, and CD34. The phenotype was felt to be nonspecific. Staging CT scans of the chest, abdomen, and pelvis on 11/14/2019 showed prominent left axillary lymph nodes, the largest measuring 10 mm, an enlarged celiac axis lymph node measuring 11.5 mm, a prominent left periaortic lymph node measuring 7 mm, and prominent inguinal lymph nodes measuring up to 10 mm. The spleen was enlarged measuring 13.1 cm. The right hepatic lobe was noted to be enlarged, but the liver otherwise appeared normal. She underwent bone marrow aspiration/biopsy on 12/05/2019. The interpretation was limited due to the bone marrow aspirate specimens having been hemodiluted without cellular spicules. Bone marrow was noted to be hypercellular on the biopsy specimen, averaging 60 to 90% cellularity. An extensive interstitial and diffuse lymphoid infiltrate was noted to involve a high proportion of the marrow space, estimated at 70 to 80%. The lymphoid cells were noted to be small and round with clumped nuclear chromatin. There was evidence of plasmacytic differentiation. The flow cytometry showed nonspecific phenotype, similar to the whole blood specimen. Iron stores were noted to be reduced, but not absent. Overall, the findings were not definitive, but they were suggestive of lymphoplasmacytic lymphoma. The MYD88 mutation was detected, consistent with Waldenstrom macroglobulinemia. Her other medical illnesses includehypertension, hyperlipidemia, fibromyalgia, and degenerative arthritis/degenerative disease of the spine. She has had multiple surgeries on both the cervical and lumbar spine. She reportedly was found to be positive for the Factor V Leiden mutation. She has history of smoking for 30 years, up to 2 packs of cigarettes daily. She quit smoking in 2006. INTERIM HISTORY: On 01/13/2020 she began a course of treatment with rituximab in combination with ibrutinib 420 mg daily. She completed the initial 4 weekly infusions of rituximab with no adverse effects. She then continued the ibrutinib at 420 mg daily. As of her follow-up visit on 03/04/2020 there had been a significant decline in her M protein, to 0.7 g/dL, and there also was significant improvement in the splenomegaly. There was not a significant change in her clinical status. She continued ibrutinib 420 mg daily. ) Mrs. Kinney is here today for follow-up. She is due for cycle 2-week 4/4 (wk 17-20) of weekly Rituxan. She continues with ibrutinib as well. In regards to the Rituxan she has done well. She states that she felt good and was doing more than adjuvant and she is reinjured her back. She describes her lower back pain. She states that she has had Flexeril in the past and had been taking it but does not seem that is helping well at all. She also states that she has a combination of trazodone 50 mg and 1 lorazepam at night and this helps her sleep. She is had no further insomnia since she is done this regimen. She is due for CTs of her neck through neuro tomorrow. She states that her insurance sent him a nurse to see her though today and the nurse is recommending that she have discussions regarding flu shots, shingles vaccine, and bone density. Ms. Kinney does have a history of osteoporosis and the lower back pain. She states is been hurting to the point where she was crying most of the day in pain yesterday. She states the Flexeril does did not help. She had no further pain medication to give her any kind of relief. She denies any skin rashes. She denies any nausea or vomiting. She states other than her back she is felt pretty good. She denies mouth sores, sore throat or difficulty swallowing. She denies any diarrhea or constipation. She denies any new pain other than above. Her ECOG is 2. Past Medical History: Cervical spinal stenosis Degenerative arthritis Degenerative disease of the spine Factor V Leiden mutation Fibromyalgia Hyperlipidemia Hypertension Past Surgical History: Bunionectomy on the right foot Cervical spine surgery x 4 section x 2 EGD and colonoscopy Facial surgery x 3 Lumbar spine surgery x 2 Multiple oral surgeries Rotator cuff repair x 2 Surgery for dislocated left hip Allergies: Cortisone Acetate, Demerol, Dilaudid, Haldol, and Morphine Sulfate. Medications: Allopurinol 1 Tablet (of 300 mg) Oral daily Atorvastatin Calcium 1 Tablet (of 20 mg) Oral at bedtime B-1 1 Tablet (of 100 mg) Oral daily Calcium Citrate + D 1 Tablet (of 315-200 mg - Units) Oral b.i.d. Cyclobenzaprine HCl 1 - 2 Tablet (of 10 mg) Oral b.i.d. Ferrous Sulfate 1 Tablet (of 325 (65 fe) mg) Oral daily Folic Acid 1 Tablet (of 1 mg) Oral daily Imbruvica 3 Capsule (of 140 mg) Oral daily Imodium A-D 1 Capsule (of 2 mg) Oral daily Levothyroxine Sodium 1 Tablet (of 50 mcg) Oral daily LORazepam 1 - 2 Tablet (of 0.5 mg) Oral t.i.d. Metoprolol Tartrate 0.5 - 1 Tablet (of 25 mg) Oral b.i.d. Multivitamin Adult 1 Tablet Oral daily Pantoprazole Sodium 1 Tablet (of 40 mg) Tablet, enteric coated Oral daily Prochlorperazine Maleate 1 Tablet (of 10 mg) Oral q 4 hours PRN rOPINIRole HCl 2 Tablet (of 0.25 mg) Oral at bedtime Stool Softener 1 Tablet (of 100 mg) Oral daily traZODone HCl 0.5 - 1 Tablet (of 50 mg) Oral at bedtime Vitamin C 1 Capsule (of 500 mg) Oral daily Family History: Ms. Kinney's mother at age 71: emphysema. Ms. Kinney's father at age 70: congestive heart failure, and hypertension, and myocardial infarction, and type II diabetes. Ms. Kinney has 1 brother who is alive: coronary artery disease. She has 2 sisters: 1 alive, 1 . Ms. Kinney's first sister's septic shock. Father had diabetes, coronary artery disease, and chronic kidney disease. He at age 70. Her mother had COPD and history of strokes. She at age 71. A sister with septic shock. Another sister is in good health. She has 1 brother who has coronary disease. Her daughter was found to have factor V Leiden mutation in the course of her evaluation following a stillbirth. Social History: Ms. Kinney is and she is a disabled. Ms. Kinney quit smoking 13 years ago but had smoked 2.0 packs/day for 30 years. She drinks occasionally. Ms. Kinney reports the following support systems: lives with spouse, significant other, family, or friends, lives in own house, supportive family/friends willing to assist with needs, and transportation problems exist and will require assistance. Her diet consists of regular meals. She indicates her activity level as: light exercise. She has a history of smoking for 30 years up to 2 packs of cigarettes daily. She quit smoking in 2006. She has just occasional alcohol use. Review Of Symptoms: Constitutional Denies fevers, chills, night sweats, excessive fatigue or weight loss. See above. Allergic/Immunologic No reactions. Eyes Denies significant visual changes. No diplopia. No amaurosis. ENMT Denies changes in hearing, sore throat, mouth sores, difficulty or changes in swallowing ability, and/or sinus drainage. Endocrine No diabetes, thyroid disease or hormone replacement. Denies hot flashes or night sweats. Hematologic/Lymphatic Denies easy bruising or bleeding. The patient denies any tender or palpable lymph nodes. Respiratory Denies dyspnea on exertion, chest pain, cough or hemoptysis. Denies orthopnea. Cardiovascular Denies anginal chest pain, palpitations or orthopnea. Gastrointestinal Denies nausea, vomiting, diarrhea, GI bleeding, or constipation. Denies change in bowel habits and/or stool color, no heartburn or early satiety. Genitourinary (F) No hematuria, hesitancy, incontinence, vaginal bleeding, discharge or other problems with urination. Musculoskeletal Denies joint pain, swelling or redness. No decreased range of motion. Integumentary Denies chronic rashes, inflammation, ulcerations or skin changes. She does have a scalp lesion on the posterior right side from a fall in February 2020. She has been following with Lucy Dean for this. MS Kinney thinks it is healing ok. Neurologic Denies headache, blurred vision, and no areas of focal weakness or numbness. Normal gait. No sensory problems. Psychiatric Denies depression, keshawn or mood swings. She continues to have insomnia. she states she did not get Trazadone at he last visit. Vital Signs: Performed on May 25, 2020 09:22 Height - 59.00 in Weight - 112.4 lbs (HIGH) BSA - 1.44 sq.m BMI - 22.70 Temperature - 99.5 F (HIGH) Pulse - 86 /min Respiration - 20 /min BP - 129/77 mm(hg) O2 Sat - 97 % Pain - 6,2 - Ambulatory/capable of all self-care, unable to perform any work activities. Up and about more than 50% of waking hours. (ECOG) Physical Examination: Constitutional Alert, oriented, no acute distress. Skin pink, warm and dry. Eyes Conjunctivae and sclerae are clear and without icterus. Pupils are reactive and equal. ENMT No oral exudates, ulcers, masses, thrush or mucositis. Oropharynx clear. Tongue normal. Neck Supple without masses or thyromegaly. No jugular venous distension. Hematologic/Lymphatic No petechiae or purpura. No tender or palpable lymph nodes in the cervical or supraclavicular areas. Respiratory Lungs are clear to auscultation without rhonchi or wheezing. Cardiovascular Regular rate and rhythm of heart without murmurs,clicks, gallops or rubs. Abdomen Non-tender, non-distended, no masses or ascites. Good bowel sounds noted in all quads. No guarding or rebound tenderness. No pulsatile masses. Back/Spine Non-tender to palpation. Area of spine abnormality on cervical spine that appears to be potential bone protrusion but not breaking the skin. She is following with neurology for this. Extremities No visible deformities, no cyanosis, clubbing or edema. Musculoskeletal No tenderness or swelling, normal range of motion without obvious weakness. Integumentary No rashes or lesions. Neurologic No sensory or motor deficits, normal cerebellar function, normal gait. Psychiatric Alert and oriented times three. Coherent speech. Verbalizes understanding of our discussions today. Laboratory:Test performed on May 25, 2020 08:40 LDH (Total) 287 U/L Sodium 133 mmol/L Potassium 4.0 mmol/L Chloride 97 mmol/L CO2 25 mmol/L Anion Gap 15.0 BUN 9 mg/dL Creatinine 0.7 mg/dL Cr Clearance (Est) 72.6400 mL/min eGFR 85.9 mL/min Glucose 86 mg/dL Osmolality - Calculated 274 mOsm/kg Calcium 8.9 mg/dL Protein, Total 6.8 g/dL Albumin 3.9 g/dL Globulin 2.9 g/dL Bilirubin, Total 0.7 mg/dL ALT (SGPT) 39 U/L AST (SGOT) 54 U/L Alkaline Phosphatase 50 IU/L WBC 10.1 10 3/uL RBC 3.92 10 6/uL HGB 11.3 g/dL HCT 35.9 % MCV 91.6 fL MCH 28.8 pg MCHC 31.5 g/dL RDW 16.1 % Platelet Count 162 10 3/cmm MPV 12.0 fL Neutrophils 4.81 10 3/uL Lymphocytes 2.9 10 3/uL Monocytes 2.2 10 3/uL Eosinophils 0.1 10 3/uL Basophils 0.1 10 3/uL Neutrophil % 47.7 % Lymphocyte % 29.0 % Monocyte % 21.3 % Eosinophil % 0.9 % Basophils % 0.8 % NRBC % 0 % Impression: 1. Patient with lymphoproliferative disorder with associated IgM monoclonal gammopathy. 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 The MYD88 mutation was detected, consistent with Waldenstr???m macroglobulinemia. 2. She has significant peripheral neuropathy, which I suspect is related. Her other medical illnesses include: 3. Hypertension. 4. Hyperlipidemia. 5. Fibromyalgia. 6. Degenerative arthritis and degenerative disease of the spine. She has associated cervical spinal canal stenosis. 7. She was reportedly found to be positive for the Factor V Leiden mutation. On 01/13/2020 she began a course of treatment with rituximab in combination with ibrutinib 420 mg daily. She completed 4 weekly infusions of rituximab and she then continued the ibrutinib at 420 mg daily. During treatment there was some decline in her renal function, but that subsequently resolved. She has since then been able to continue the ibrutinib at 420 mg daily no adverse effects. She has been showing a very good objective response with improvement in the splenomegaly and the anemia and with a significant decrease in her M protein. However, thus far there is still been no significant change in her clinical status. She is here today for week 3/4 of cycle 2 weekly rituximab. She continues with ibrutinib 420 mg daily. Plan: 1. Proceed with week 20 of Rituxan. (She began weekly Rituxan x 4 weeks on 01/13/2020. She completed 4 consequetive weeks and returned for week 17 Rituxan on 05/04/2020). 2. Continue ibrutinib 420 mg daily. 3. Recently increase of metoprolol to 25 mg am and 50 mg pm due to blood pressure elevation with diastyolic readings 95-105 and HR 95-105. Blood pressures are slowing improving. 4. Labs from today were reviewed with Ms. Kinney and a copy was given to her. WBC 10.1, hemoglobin 11.3, platelets 162,000 ANC is 4800. 5. We will plan to see her back in 4 weeks with CBC CMP for followup for the ibrutinib. We will discuss with her flu vac and shingles vac at that time. 6. Ms. Kinney was instructed to contact us in the interim should questions or problems arise. 7. She was advised she can titrate her trazodone 50 mg at night just to see if this will help with her insomnia- she may increase to 150 mg a day if needed. She is currently controlled on 50 mg at hs. 8. Mrs. Kinney had left diagnostic digital mammogram with CAD on 04/01/2020 this was a 6-month follow-up comparison to July 18, 2019. It reported BI-RADS 2???benign. It was recommended that she return to annual screening with a screening resumed in July 2020. 9. Proteins: Her abnormal protein from 05/04/2020 was reported at 0.7 restricted band (M spike) migrating in the gamma region. The abnormal protein on 04/03/2020 was 0.6 and again reported restricted band (M spike) migrating in the gamma region. Her proteins are stable. 10. She is scheduledd for non contrast CT of cervical and lumbar spine tomorrow per neurology for evalaution of what appears to be bone protrusion at the cervical and lumbar spine areas. 11. She will have a trial of Tylenol # 3 for pain as she states she has had increase in her neck pain. Also she feels Flexeril is not working as she has been on it since 2001 . We will try a limited #30 of Soma 250 mg. 12. Ms Kinney has been instructed to call us in the interim if questions or problems arise. Signed By: Rosetta Victoria-, AOCNP Robin Solorzano MD <<Signature on File>>
== END 2020-06-03 23:59 | disposition home or self-care (01) ==
LOC: ONCMED 05:29
PROVIDERS: PCP Physician Assistant; Visit Provider Nurse Practitioner
DX: Z51.12 Encounter for antineoplastic immunotherapy (principal); Z51.11 Encounter for antineoplastic chemotherapy; C88.0 Waldenstrom macroglobulinemia; D72.820 Lymphocytosis (symptomatic); D47.2 Monoclonal gammopathy; D68.51 Activated protein C resistance; G62.9 Polyneuropathy, unspecified; I10 Essential (primary) hypertension; E78.5 Hyperlipidemia, unspecified; M79.7 Fibromyalgia; M47.9 Spondylosis, unspecified; M48.02 Spinal stenosis, cervical region
CPT/HCPCS: 36415; 80053; 83615; 85025; 96375; 96413; 96415; 99214; J2930; J7040; J9312

== ENCOUNTER 2020-05-26 09:40 | Outpatient (CLI) | payer MEDICARE, MEDICAID, SELFPAY ==
--- NOTE | 2020-05-26 10:00 | CT_ITS ---
WS: [id number] CT CERVICAL SPINE HISTORY: HX fusion/fixation. Hardware protrusion close to skin TECHNIQUE: Contiguous 2.5 mm axial imaging performed through the entire cervical spine. Sagittal and coronal reformats also performed. All CT scans at [facility] use at least one of these do se optimization techniques: automated exposure control; mA and/or kV adjustment per patient size (inc ludes targeted exams where dose is matched to clinical indication); or iterative reconstruction. DLP: 1598.29 mGycm COMPARISON: 02/26/2020 Mild straightening of the cervical lordosis. Anterior cervical fusion at C3-4 with interbody spacer. There is an additional interbody spacer at C4-5. Moderate disc space narrowing at C6-7. C3 anterolist hesis by 3.3 mm. There is additional posterior cervical fusion hardware beginning at the C2 level, bi lateral. Facet joint screws at C2, C4, C5 and C6. As compared to the prior study there is no lucency around the screws or displacement. Ankylosis is ap parent across the facet joints of C2-3, C3-4 and C4-5 and C5-6. C2-C3: Normal. C3-C4: Osteophytic ridging bodies with moderate bilateral foraminal stenosis. Large posterior laminec celestino defect. C4-C5: Large posterior laminectomy defect with osteophytic ridging. C5-C6: Mild osteophytic ridging with mild foraminal narrowing. C6-C7: Normal. C7-T1: Normal. Soft tissues are normal. Lung apices are clear. CT/CT cervical spin wo con* [id number] IMPRESSION: 1. Extensive anterior and posterior cervical fusion hardware as above with no change since 02/26/2020. 2. Interbody spacers at C3-4 and C4-5 with no change. 3. Large posterior laminectomy defects at C3-4 and C4-5. 4. C3 anterolisthesis of 3.3 mm is stable.
--- NOTE | 2020-05-26 10:15 | CT_ITS ---
WS: [id number] CT LUMBAR SPINE, noncontrast. HISTORY: HX Lumbar spine surgeries TECHNIQUE: Contiguous 2.5 mm axial imaging are performed. Sagittal and coronal reformats are submitte d and reviewed. All CT scans at [facility] use at least one of these dose optimization te chniques: automated exposure control; mA and/or kV adjustment per patient size (includes targeted exa ms where dose is matched to clinical indication); or iterative reconstruction. IV contrast: None DLP: 1765.01 mGycm COMPARISON: None available. L4 anterolisthesis by 6 mm. Fixation hardware at the L4-5 level. L4 and L5 RIGHT lateral vertebral ignacio dy screws with interbody spacer. Additional RIGHT L4-5 pedicle screws. Hardware is intact. No lucency or fractures. No prior similar studies for comparison. There is additional hardware posteriorly at t he L4-5 level. L1-2: Mild annular disc bulging without significant stenosis. L2-3: Mild annular disc bulging without stenosis. L3-4: Moderate annular disc bulging with mild ligamentum flavum disease and facet arthritis. Very mil d central stenosis. L4-5: Large amount of artifact at the L4-5 disc level obscuring soft tissue detail. Suspicious thecal sac. Cannot evaluate for possible disc herniations. No significant foraminal narrowing. L5-S1: Mild annular disc bulge. No stenosis. Moderate plaque in the aorta without aneurysm. CT/CT lumbar spine wo con* [id number] IMPRESSION: 1. There is extensive RIGHT lateral and posterior fixation hardware at L4-5 wi thout apparent complication. No similar studies for comparison. 2. No hardware fracture or lucency around the screws in the L4 or L5 vertebral bodies. 3. L4 anterolisthesis by 6 mm. 4. Mild central stenosis at L3-4.
== END 2020-05-26 09:41 | disposition home or self-care (01) ==
LOC: RADWPI 09:44
PROVIDERS: PCP Physician Assistant; Visit Provider Licensed Practical Nurse
DX: Z98.890 Other specified postprocedural states (principal); M48.061 Spinal stenosis, lumbar region without neurogenic claudication; M96.1 Postlaminectomy syndrome, not elsewhere classified
CPT/HCPCS: 72125; 72131

== ENCOUNTER → 2020-06-01 13:52 | Outpatient (BNVA) | payer MEDICARE, MEDICAID, SELFPAY | PROVIDERS: PCP Physician Assistant; Visit Provider Licensed Practical Nurse | DX: M96.1 Postlaminectomy syndrome, not elsewhere classified (principal); G62.9 Polyneuropathy, unspecified | CPT/HCPCS: 99214 ==

== ENCOUNTER 2020-06-22 06:06 | Outpatient (RCR) | payer MEDICARE, MEDICAID, SELFPAY ==
[2020-06-22 10:29] LABS: Basophils # 0.1 10^3/uL (0.0-0.1); Basophils % 1.2 %; Eosinophils % 0.3 %; Hematocrit 34.2 % (37.0-47.0); Hemoglobin 11.4 g/dL (11.5-15.3); Lymphocytes # 1.9 10^3/uL (0.8-4.8); Lymphocytes % 32.5 %; Mean Corpuscular HGB Conc 33.3 g/dL (30.0-36.0); Mean Corpuscular Hemoglobin 29.6 pg (28.0-34.0); Mean Corpuscular Volume 88.8 fL (81-99); Mean Platelet Volume 11.7 fL (7.4-10.4); Monocytes # 1.7 10^3/uL (0.2-0.9); Monocytes % 28.8 %; Neutrophils # 2.13 10^3/uL (1.8-7.7); Neutrophils % 36.9 %; Nucleated Red Blood Cells % 0 %; Platelet Count 178 10^3/cmm (130-400); Red Blood Count 3.85 10^6/uL (4.1-5.3); Red Cell Distribution Width 16.1 % (12.1-15.1); White Blood Count 5.8 10^3/uL (4.0-10.0)
[2020-06-22 10:58] LABS: Alanine Aminotransferase 55 U/L (0-33); Alkaline Phosphatase 62 IU/L (35-105); Anion Gap 13.8 (5-19); Aspartate Amino Transferase 79 U/L (0-32); Blood Urea Nitrogen 11 mg/dL (6-20); Calcium 9.7 mg/dL (8.5-10.5); Carbon Dioxide 27 mmol/L (22-29); Chloride 94 mmol/L (98-107); Globulin 2.3 g/dL (1.3-4.6); Glomerular Filtration Rate 73.7 mL/min (90-130); Glucose 79 mg/dL (65-115); Immunoglobulin IGA 107 mg/dL (70-400); Immunoglobulin IGG 767 mg/dL (700-1600); Immunoglobulin IGM 592 mg/dL (40-230); Osmolality Calculated 270 mOsm/kg (285-295); Potassium 3.8 mmol/L (3.5-5.1); Sodium 131 mmol/L (136-145); Thyroid Stimulating Hormone 1.89 uIU/mL (0.27-4.20); Total Bilirubin 0.5 mg/dL (0.15-1.2); Total Protein 6.3 g/dL (6.6-8.7)
--- NOTE | 2020-06-26 15:22 | ONC FU_ITS ---
Dr. Solorzano Patient Follow-Up Note Patient: Yulisa Kinney Unit #: [id number]: 1960 Dicatated By: Robin Solorzano M.D.Date of Visit:Jun 22, 2020 Onc Med Follow-up/Prog Note Chief Complaint: Waldenstrom macroglobulinemia. History of Present Illness: This is a 59 year-old woman with Waldenstrom macroglobulinemia, presenting with lymphocytosis, anemia, and splenomegly in association with IgM monoclonal gammopathy. She had been seeing Dr. Jasso in neurology for peripheral neuropathy symptoms. She had been diagnosed with bilateral carpal tunnel syndrome and lumbar radiculopathy. On 09/26/2019 she had a follow-up outpatient visit with Lucy Dean. Her laboratory studies included CBC showing hemoglobin 9.7 g and hematocrit 31.5%. The red cell indices were normal. The white blood cell count was elevated 14,900 with the differential showing 23% granulocytes, 68% lymphocytes, and 7% monocytes. The platelet count was normal at 165,000. Comprehensive metabolic profile showed borderline renal function with BUN 15 and creatinine 1.1 mg/dL. The albumin was normal at 4.2 g/dL with calculated serum globulin elevated at 4.4 g/dL. The liver enzymes were normal. Sed rate and CRP levels were normal. TSH was borderline at 4.74 ???IUl/mL. B12 was normal at 568 pg/mL. Folate was greater than 24.0 ng/mL. The serum iron studies showed slightly low transferrin saturation at 18%. Ferritin was normal at 65 ng/mL. Protein electrophoresis showed a monoclonal protein band quantitating at 1.2 g/dL. Immunofixation showed IgM lambda. I had seen her initially on 10/31/2019. She was noted to have a palpable spleen, but there was no peripheral lymphadenopathy noted. Her repeat CBC showed hemoglobin 9.9 g, white blood cell count 17,000, and platelet count 124,000. The differential showed 70% lymphocytes, 18% neutrophils, 8% monocytes, and 1% eosinophils. Comprehensive metabolic profile was unremarkable except for slightly elevated SGOT at 46/32 U/L. LDH was just slightly elevated at 231/214 U/L. Protein electrophoresis showed an M band quantitating at 1.1 g/dL. The quantitative immunoglobulins included IgG elevated at 1464/230 mg/dL, IgG normal at 1129 mg/dL, and IgA normal at 113 mg/dL. The free light chain assay showed elevated lambda light chain at 53.3 mg/L, kappa light chain 33.8 mg/L and kappa/lambda ratio within the normal range at 0.63. A whole blood flow cytometry on 11/06/2019 showed on monotypic B-cell population which was positive for CD19, CD20, and CD22. There was dim/partial positivity to FMC7 and CD25. A subset showed surface lambda light chain restriction, but the remaining population appeared to be light chain negative. The monotypic B cells were negative for CD5, CD10, CD23, CD11c, CD103, CD123, CD200, CD38, and CD34. The phenotype was felt to be nonspecific. Staging CT scans of the chest, abdomen, and pelvis on 11/14/2019 showed prominent left axillary lymph nodes, the largest measuring 10 mm, an enlarged celiac axis lymph node measuring 11.5 mm, a prominent left periaortic lymph node measuring 7 mm, and prominent inguinal lymph nodes measuring up to 10 mm. The spleen was enlarged measuring 13.1 cm. The right hepatic lobe was noted to be enlarged, but the liver otherwise appeared normal. She underwent bone marrow aspiration/biopsy on 12/05/2019. The interpretation was limited due to the bone marrow aspirate specimens having been hemodiluted without cellular spicules. Bone marrow was noted to be hypercellular on the biopsy specimen, averaging 60 to 90% cellularity. An extensive interstitial and diffuse lymphoid infiltrate was noted to involve a high proportion of the marrow space, estimated at 70 to 80%. The lymphoid cells were noted to be small and round with clumped nuclear chromatin. There was evidence of plasmacytic differentiation. The flow cytometry showed nonspecific phenotype, similar to the whole blood specimen. Iron stores were noted to be reduced, but not absent. Overall, the findings were not definitive, but they were suggestive of lymphoplasmacytic lymphoma. The MYD88 mutation was detected, consistent with Waldenstrom macroglobulinemia. Her other medical illnesses includehypertension, hyperlipidemia, fibromyalgia, and degenerative arthritis/degenerative disease of the spine. She has had multiple surgeries on both the cervical and lumbar spine. She reportedly was found to be positive for the Factor V Leiden mutation. She has history of smoking for 30 years, up to 2 packs of cigarettes daily. She quit smoking in 2006. INTERIM HISTORY: On 01/13/2020 she began a course of treatment with rituximab in combination with ibrutinib 420 mg daily. She completed the initial 4 weekly infusions of rituximab with no adverse effects. She then continued the ibrutinib at 420 mg daily. As of her follow-up visit on 03/04/2020 there had been a significant decline in her M protein, to 0.7 g/dL, and there also was significant improvement in the splenomegaly. There was not a significant change in her clinical status. She then continued ibrutinib 420 mg daily, which she tolerated well. As of her follow-up visit on 05/04/2020 her repeat protein electrophoresis showed residual M protein quantitating at 0.7 g/dL. She then began her second course of rituximab administered weekly for 4 weeks. She completed her week 4 treatment on 05/25/2020. She is seen for a follow-up visit. She has been feeling pretty good generally, though she has been tired a lot. She is able to do some light work. ECOG score is 1. She has no appetite, which she says she does eat. She has lost a little weight. She does not have fever or night sweats. She has no shortness of breath, cough, or chest pain. She Meme has no GI or complaints. She has pain in her neck and back, and she is going to be seeing a neurosurgeon. She does not complain of headache. She still has numbness/tingling in her hands and feet. Medications: Allopurinol 1 Tablet (of 300 mg) Oral daily, Atorvastatin Calcium 1 Tablet (of 20 mg) Oral at bedtime, B-1 1 Tablet (of 100 mg) Oral daily, Calcium Citrate + D 1 Tablet (of 315-200 mg - Units) Oral b.i.d., Cyclobenzaprine HCl 1 - 2 Tablet (of 10 mg) Oral b.i.d., Ferrous Sulfate 1 Tablet (of 325 (65 fe) mg) Oral daily, Folic Acid 1 Tablet (of 1 mg) Oral daily, Imbruvica 3 Capsule (of 140 mg) Oral daily, Imodium A-D 1 Capsule (of 2 mg) Oral daily, Levothyroxine Sodium 1 Tablet (of 50 mcg) Oral daily, LORazepam 1 - 2 Tablet (of 0.5 mg) Oral t.i.d., Metoprolol Tartrate (25 mg) Tablet Oral Take as Directed, Multivitamin Adult 1 Tablet Oral daily, Pantoprazole Sodium 1 Tablet (of 40 mg) Tablet, enteric coated Oral daily, Prochlorperazine Maleate 1 Tablet (of 10 mg) Oral q 4 hours PRN, rOPINIRole HCl 2 Tablet (of 0.25 mg) Oral at bedtime, Stool Softener 1 Tablet (of 100 mg) Oral daily, traZODone HCl 0.5 - 1 Tablet (of 50 mg) Oral at bedtime, Vitamin C 1 Capsule (of 500 mg) Oral daily Allergies: Cortisone Acetate, Demerol, Dilaudid, Haldol, and Morphine Sulfate. Review of Systems: Constitutional - She has been tired a lot. She is still able to do light work. She has no appetite, but she does eat. She has lost a little weight. No fever or night sweats. ECOG score is 1, ENMT - She has chronic sinus congestion/drainage. No mouth sores. No sore throat or difficulty swallowing, Hematologic/Lymphatic - She has easy bruising, Respiratory - No shortness of breath. No cough. No pleuritic pain or hemoptysis, Cardiovascular - No angina pain. No palpitations, Gastrointestinal - No nausea or vomiting. No heartburn or acid reflux. No diarrhea or constipation. No blood in the stool or black stools, Genitourinary (F) - No dysuria or hematuria. No urinary frequency. No urgency or incontinence, Musculoskeletal - She has pain in her neck and back. She is going to be seeing a neurosurgeon, Integumentary - No skin rash, Neurologic - No headache or dizziness. She has numbness/tingling in her hands and feet. No other focal neurologic symptoms, Psychiatric - No anxiety or depression. She does not sleep well at night. Vital Signs: Performed on Jun 22, 2020 11:19 Height - 59.00 in Weight - 109.6 lbs (LOW) BSA - 1.43 sq.m BMI - 22.14 Temperature - 97.1 F (LOW) Pulse - 83 /min Respiration - 16 /min BP - 133/82 mm(hg) O2 Sat - 100 % Pain - 5 Physical Examination: Constitutional - She appears chronically ill, Eyes - Sclerae nonicteric. Conjunctivae clear, ENMT - No lesions noted in the oral cavity, Hematologic/Lymphatic - No cervical, clavicular, or axillary adenopathy, Respiratory - Lungs are clear with good air movement bilaterally, Cardiovascular - Heart rhythm is regular. There is no murmur, gallop, or rub noted, Abdomen - Soft. Liver is not enlarged. Spleen is not palpable. There is no abdominal mass or ascites noted and there is no inguinal adenopathy, Extremities - No edema. She has scattered purpuric lesions, and there is a resolving ecchymosis in the area of the right elbow, Neurologic - No focal neurologic deficits noted. Lab/Imaging: Test performed on Jun 22, 2020 09:55 Sodium 131 mmol/L TSH 1.89 uIU/mL Potassium 3.8 mmol/L Chloride 94 mmol/L CO2 27 mmol/L Anion Gap 13.8 BUN 11 mg/dL Creatinine 0.8 mg/dL Cr Clearance (Est) 63.5600 mL/min eGFR 73.7 mL/min Glucose 79 mg/dL Osmolality - Calculated 270 mOsm/kg Calcium 9.7 mg/dL Protein, Total 6.3 g/dL Albumin 4.0 g/dL Globulin 2.3 g/dL Bilirubin, Total 0.5 mg/dL ALT (SGPT) 55 U/L AST (SGOT) 79 U/L Alkaline Phosphatase 62 IU/L WBC 5.8 10 3/uL RBC 3.85 10 6/uL HGB 11.4 g/dL HCT 34.2 % MCV 88.8 fL MCH 29.6 pg MCHC 33.3 g/dL RDW 16.1 % Platelet Count 178 10 3/cmm MPV 11.7 fL Neutrophils 2.13 10 3/uL Lymphocytes 1.9 10 3/uL Monocytes 1.7 10 3/uL Eosinophils 0.0 10 3/uL Basophils 0.1 10 3/uL Neutrophil % 36.9 % Lymphocyte % 32.5 % Monocyte % 28.8 % Eosinophil % 0.3 % Basophils % 1.2 % NRBC % 0 % IgG 767 mg/dL IgA 107 mg/dL IgM 592 mg/dL Impression: 1. Patient with lymphoproliferative disorder with associated IgM monoclonal gammopathy. 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 The MYD88 mutation was detected, consistent with Waldenstr???m macroglobulinemia. 2. She has significant peripheral neuropathy, which I suspect is related. Her other medical illnesses include: 3. Hypertension. 4. Hyperlipidemia. 5. Fibromyalgia. 6. Degenerative arthritis and degenerative disease of the spine. She has associated cervical spinal canal stenosis. 7. She was reportedly found to be positive for the Factor V Leiden mutation. On 01/13/2020 she began a course of treatment with rituximab in combination with ibrutinib 420 mg daily. She completed 4 weekly infusions of rituximab and she then continued the ibrutinib at 420 mg daily. During treatment there was some decline in her renal function, but that subsequently resolved. She was then able to continue the ibrutinib at 420 mg daily wtih no adverse effects. She had evidence of very good objective response with improvement in the splenomegaly and the anemia and with a significant decrease in her M protein. There was no significant change, though, and her clinical status. As of her follow-up visit on 05/04/2020 her repeat protein letter pheresis showed residual M protein quantitating at 0.7 g/dL. At that point she began a second course of rituximab, ministered weekly for 4 weeks. She tolerated it well. During this time she also has continued ibrutinib 420 mg daily. Her overall clinical status appears stable. Plan: She continues ibrutinib 420 mg daily. She will be scheduled for a follow-up visit in 1 month. Signed By: Robin Solorzano M.D. <<Signature on File>>
== END 2020-07-04 23:59 | disposition home or self-care (01) ==
LOC: ONCMED 06:06
PROVIDERS: PCP Physician Assistant; Visit Provider Internal Medicine Medical Oncology
DX: C88.0 Waldenstrom macroglobulinemia (principal); D47.2 Monoclonal gammopathy; E03.9 Hypothyroidism, unspecified; G62.9 Polyneuropathy, unspecified; M48.02 Spinal stenosis, cervical region; D68.51 Activated protein C resistance; Z51.81 Encounter for therapeutic drug level monitoring; Z79.899 Other long term (current) drug therapy
CPT/HCPCS: 36415; 80053; 82784; 84443; 85025; 99214

== ENCOUNTER 2020-07-22 06:00 | Outpatient (RCR) | payer MEDICARE, MEDICAID, SELFPAY ==
[2020-07-22 11:59] LABS: Basophils # 0.1 10^3/uL (0.0-0.1); Basophils % 1.2 %; Eosinophils # 0.1 10^3/uL (0.0-0.8); Eosinophils % 0.8 %; Hematocrit 35.2 % (37.0-47.0); Hemoglobin 11.2 g/dL (11.5-15.3); Lymphocytes # 2.1 10^3/uL (0.8-4.8); Lymphocytes % 35.6 %; Mean Corpuscular HGB Conc 31.8 g/dL (30.0-36.0); Mean Corpuscular Hemoglobin 29.9 pg (28.0-34.0); Mean Corpuscular Volume 94.1 fL (81-99); Mean Platelet Volume 11.2 fL (7.4-10.4); Monocytes % 16.6 %; Neutrophils # 2.72 10^3/uL (1.8-7.7); Neutrophils % 45.5 %; Nucleated Red Blood Cells % 0 %; Platelet Count 174 10^3/cmm (130-400); Red Blood Count 3.74 10^6/uL (4.1-5.3); Red Cell Distribution Width 15.1 % (12.1-15.1)
[2020-07-22 12:20] LABS: Alanine Aminotransferase 38 U/L (0-33); Albumin Level 4.1 g/dL (3.5-5.2); Alkaline Phosphatase 66 IU/L (35-105); Aspartate Amino Transferase 47 U/L (0-32); Blood Urea Nitrogen 10 mg/dL (6-20); Calcium 9.2 mg/dL (8.5-10.5); Carbon Dioxide 29 mmol/L (22-29); Chloride 99 mmol/L (98-107); Globulin 2.6 g/dL (1.3-4.6); Glomerular Filtration Rate 73.7 mL/min (90-130); Glucose 57 mg/dL (65-115); Lactate Dehydrogenase 204 U/L (135-214); Osmolality Calculated 281 mOsm/kg (285-295); Sodium 137 mmol/L (136-145); Total Bilirubin 0.7 mg/dL (0.15-1.2); Total Protein 6.7 g/dL (6.6-8.7)
[2020-07-22 12:39] LABS: Erythrocyte Sedimentation Rate 6 mm/hr (0-15)
[2020-07-22 13:02] LABS: Immunoglobulin IGA 111 mg/dL (70-400); Immunoglobulin IGG 806 mg/dL (700-1600); Immunoglobulin IGM 615 mg/dL (40-230)
[2020-07-23 11:37] LABS: PROTEIN, TOTAL 6.4 g/dL (6.1-8.1)
[2020-07-23 15:42] LABS: ABNORMAL PROTEIN BAND 1 0.5 g/dL (NONE DETECTED); ALBUMIN 3.7 g/dL (3.8-4.8); ALPHA 1 GLOBULIN 0.3 g/dL (0.2-0.3); ALPHA 2 GLOBULIN 0.7 g/dL (0.5-0.9); BETA 1 GLOBULIN 0.4 g/dL (0.4-0.6); BETA 2 GLOBULIN 0.3 g/dL (0.2-0.5); GAMMA GLOBULIN 1.1 g/dL (0.8-1.7)
--- NOTE | 2020-07-28 21:30 | ONC FU_ITS ---
[facility] Patient Note Patient: Yulisa Kinney Unit #: [id number]: 1960 Dictated By: Rosetta VictoriaDate of Visit: Jul 22, 2020 Onc MED Follow-Up/Prog Note Chief Complaint: Waldenstrom's macroglobulinemia. History of Present Illness: Ms Kinney is a 59 year-old woman with Waldenstrom macroglobulinemia, presenting with lymphocytosis, anemia, and splenomegaly in association with IgM monoclonal gammopathy. She had been seeing Dr. Jasso in neurology for peripheral neuropathy symptoms. She had been diagnosed with bilateral carpal tunnel syndrome and lumbar radiculopathy. On 09/26/2019 she had a follow-up outpatient visit with Lucy Dean. Her laboratory studies included CBC showing hemoglobin 9.7 g and hematocrit 31.5%. The red cell indices were normal. The white blood cell count was elevated 14,900 with the differential showing 23% granulocytes, 68% lymphocytes, and 7% monocytes. The platelet count was normal at 165,000. Comprehensive metabolic profile showed borderline renal function with BUN 15 and creatinine 1.1 mg/dL. The albumin was normal at 4.2 g/dL with calculated serum globulin elevated at 4.4 g/dL. The liver enzymes were normal. Sed rate and CRP levels were normal. TSH was borderline at 4.74 ???IUl/mL. B12 was normal at 568 pg/mL. Folate was greater than 24.0 ng/mL. The serum iron studies showed slightly low transferrin saturation at 18%. Ferritin was normal at 65 ng/mL. Protein electrophoresis showed a monoclonal protein band quantitating at 1.2 g/dL. Immunofixation showed IgM lambda. Dr Solorzano had seen her initially on 10/31/2019. She was noted to have a palpable spleen, but there was no peripheral lymphadenopathy noted. Her repeat CBC showed hemoglobin 9.9 g, white blood cell count 17,000, and platelet count 124,000. The differential showed 70% lymphocytes, 18% neutrophils, 8% monocytes, and 1% eosinophils. Comprehensive metabolic profile was unremarkable except for slightly elevated SGOT at 46/32 U/L. LDH was just slightly elevated at 231/214 U/L. Protein electrophoresis showed an M band quantitating at 1.1 g/dL. The quantitative immunoglobulins included IgG elevated at 1464/230 mg/dL, IgG normal at 1129 mg/dL, and IgA normal at 113 mg/dL. The free light chain assay showed elevated lambda light chain at 53.3 mg/L, kappa light chain 33.8 mg/L and kappa/lambda ratio within the normal range at 0.63. A whole blood flow cytometry on 11/06/2019 showed on monotypic B-cell population which was positive for CD19, CD20, and CD22. There was dim/partial positivity to FMC7 and CD25. A subset showed surface lambda light chain restriction, but the remaining population appeared to be light chain negative. The monotypic B cells were negative for CD5, CD10, CD23, CD11c, CD103, CD123, CD200, CD38, and CD34. The phenotype was felt to be nonspecific. Staging CT scans of the chest, abdomen, and pelvis on 11/14/2019 showed prominent left axillary lymph nodes, the largest measuring 10 mm, an enlarged celiac axis lymph node measuring 11.5 mm, a prominent left periaortic lymph node measuring 7 mm, and prominent inguinal lymph nodes measuring up to 10 mm. The spleen was enlarged measuring 13.1 cm. The right hepatic lobe was noted to be enlarged, but the liver otherwise appeared normal. She underwent bone marrow aspiration/biopsy on 12/05/2019. The interpretation was limited due to the bone marrow aspirate specimens having been hemodiluted without cellular spicules. Bone marrow was noted to be hypercellular on the biopsy specimen, averaging 60 to 90% cellularity. An extensive interstitial and diffuse lymphoid infiltrate was noted to involve a high proportion of the marrow space, estimated at 70 to 80%. The lymphoid cells were noted to be small and round with clumped nuclear chromatin. There was evidence of plasmacytic differentiation. The flow cytometry showed nonspecific phenotype, similar to the whole blood specimen. Iron stores were noted to be reduced, but not absent. Overall, the findings were not definitive, but they were suggestive of lymphoplasmacytic lymphoma. The MYD88 mutation was detected, consistent with Waldenstrom macroglobulinemia. Her other medical illnesses includehypertension, hyperlipidemia, fibromyalgia, and degenerative arthritis/degenerative disease of the spine. She has had multiple surgeries on both the cervical and lumbar spine. She reportedly was found to be positive for the Factor V Leiden mutation. She has history of smoking for 30 years, up to 2 packs of cigarettes daily. She quit smoking in 2006. INTERIM HISTORY: On 01/13/2020 she began a course of treatment with rituximab in combination with ibrutinib 420 mg daily. She completed the initial 4 weekly infusions of rituximab with no adverse effects. She then continued the ibrutinib at 420 mg daily. As of her follow-up visit on 03/04/2020 there had been a significant decline in her M protein, to 0.7 g/dL, and there also was significant improvement in the splenomegaly. There was not a significant change in her clinical status. She then continued ibrutinib 420 mg daily, which she tolerated well. As of her follow-up visit on 05/04/2020 her repeat protein electrophoresis showed residual M protein quantitating at 0.7 g/dL. She then began her second course of rituximab administered weekly for 4 weeks. She completed her week 4 treatment on 05/25/2020. She continues on the ibrutinib 420 mg daily. Mrs. Kinney is here today for follow-up. She states overall she is doing about the same. She states that she has occasional nausea with the ibrutinib but the antiemetics help and work when she does take them. Her main complaint today is that she is having left knee swelling and grinding and popping and swelling more than normal. She also is having some neuropathy in her left leg along with her chronic cervical spine issues She states it feels like a dagger is poking her down her leg. She does have follow-up to see Dr. Quevedo neurosurgery in [place] coming up within the next week or so. She denies any fever or chills. She denies any known Covid exposure or pending test. She states her appetite is good. Her bowels are normal for her. She states she is able to get her ADLs done without assistance although she does tire easily. She states overall she feels she is doing good. She denies any lower extremity edema. She has had no mouth sores, sore throat or difficulty swallowing. She denies any new shortness of breath orthopnea. She denies cough. Her ECOG is 1. Past Medical History: Cervical spinal stenosis Degenerative arthritis Degenerative disease of the spine Factor V Leiden mutation Fibromyalgia Hyperlipidemia Hypertension Past Surgical History: Bunionectomy on the right foot Cervical spine surgery x 4 section x 2 EGD and colonoscopy Facial surgery x 3 Lumbar spine surgery x 2 Multiple oral surgeries Rotator cuff repair x 2 Surgery for dislocated left hip Allergies: Cortisone Acetate, Demerol, Dilaudid, Haldol, and Morphine Sulfate. Medications: Allopurinol 1 Tablet (of 300 mg) Oral daily Atorvastatin Calcium 1 Tablet (of 20 mg) Oral at bedtime B-1 1 Tablet (of 100 mg) Oral daily Calcium Citrate + D 1 Tablet (of 315-200 mg - Units) Oral b.i.d. Cyclobenzaprine HCl 1 - 2 Tablet (of 10 mg) Oral b.i.d. Ferrous Sulfate 1 Tablet (of 325 (65 fe) mg) Oral daily Folic Acid 1 Tablet (of 1 mg) Oral daily Imbruvica 3 Capsule (of 140 mg) Oral daily Imodium A-D 1 Capsule (of 2 mg) Oral daily Levothyroxine Sodium 1 Tablet (of 50 mcg) Oral daily LORazepam 1 - 2 Tablet (of 0.5 mg) Oral t.i.d. Metoprolol Tartrate (25 mg) Tablet Oral Take as Directed Multivitamin Adult 1 Tablet Oral daily Pantoprazole Sodium 1 Tablet (of 40 mg) Tablet, enteric coated Oral daily Prochlorperazine Maleate 1 Tablet (of 10 mg) Oral q 4 hours PRN rOPINIRole HCl 2 Tablet (of 0.25 mg) Oral at bedtime Stool Softener 1 Tablet (of 100 mg) Oral daily traZODone HCl 0.5 - 1 Tablet (of 50 mg) Oral at bedtime Vitamin C 1 Capsule (of 500 mg) Oral daily Family History: Ms. Kinney's mother at age 71: emphysema. Ms. Kinney's father at age 70: congestive heart failure, and hypertension, and myocardial infarction, and type II diabetes. Ms. Kinney has 1 brother who is alive: coronary artery disease. She has 2 sisters: 1 alive, 1 . Ms. Kinney's first sister's septic shock. Father had diabetes, coronary artery disease, and chronic kidney disease. He at age 70. Her mother had COPD and history of strokes. She at age 71. A sister with septic shock. Another sister is in good health. She has 1 brother who has coronary disease. Her daughter was found to have factor V Leiden mutation in the course of her evaluation following a stillbirth. Social History: Ms. Kinney is and she is a disabled. Ms. Kinney quit smoking 13 years ago but had smoked 2.0 packs/day for 30 years. She drinks occasionally. Ms. Kinney reports the following support systems: lives with spouse, significant other, family, or friends, lives in own house, supportive family/friends willing to assist with needs, and transportation problems exist and will require assistance. Her diet consists of regular meals. She indicates her activity level as: light exercise. She has a history of smoking for 30 years up to 2 packs of cigarettes daily. She quit smoking in 2006. She has just occasional alcohol use. Review Of Symptoms: Constitutional Denies fevers, chills, night sweats, excessive fatigue or weight loss. Allergic/Immunologic No reactions. Eyes Denies significant visual changes. No diplopia. No amaurosis. ENMT Denies changes in hearing, sore throat, mouth sores, difficulty or changes in swallowing ability, and/or sinus drainage. Hematologic/Lymphatic Denies easy bruising or bleeding. The patient denies any tender or palpable lymph nodes. Respiratory Denies dyspnea on exertion, chest pain, cough or hemoptysis. Denies orthopnea. Cardiovascular Denies anginal chest pain, palpitations or orthopnea. Gastrointestinal Denies nausea, vomiting, diarrhea, GI bleeding, or constipation. Denies change in bowel habits and/or stool color, no heartburn or early satiety. Genitourinary (F) No hematuria, hesitancy, incontinence, vaginal bleeding, discharge or other problems with urination. Musculoskeletal Denies joint pain, swelling or redness. No decreased range of motion. Integumentary Denies chronic rashes, inflammation, ulcerations or skin changes. She does have a scalp lesion on the posterior right side from a fall in February 2020. Essentially healed. Neurologic Denies headache, blurred vision, and no areas of focal weakness or numbness. Normal gait. No sensory problems. Psychiatric Denies depression, keshawn or mood swings. Vital Signs: Performed on Jul 22, 2020 13:08 Height - 59.00 in Weight - 113.0 lbs (HIGH) BSA - 1.45 sq.m BMI - 22.82 Temperature - 98.6 F Pulse - 107 /min (HIGH) Respiration - 20 /min BP - 140/82 mm(hg) O2 Sat - 94 % (LOW) Pain - 6,1 - No physically strenuous activity, but ambulatory and able to carry out light or sedentary work (e.g. office work, light house work). (ECOG) Physical Examination: Constitutional Alert, oriented, no acute distress. Skin pink, warm and dry. Head Normocephalic; atraumatic. Scalp lesion is covered and not assessed today. There is no odor. There is no tenderness. Eyes Conjunctivae and sclerae are clear and without icterus. Pupils are reactive and equal. Neck Supple without masses or thyromegaly. No jugular venous distension. Hematologic/Lymphatic No petechiae or purpura. No tender or palpable lymph nodes in the cervical or supraclavicular areas. Respiratory Lungs are clear to auscultation without rhonchi or wheezing. Cardiovascular Regular rate and rhythm of heart without murmurs,clicks, gallops or rubs. Abdomen Non-tender, non-distended, no masses or ascites. Good bowel sounds noted in all quads. No guarding or rebound tenderness. No pulsatile masses. Back/Spine Non-tender to palpation. Area of spine abnormality on cervical spine that appears to be potential bone protrusion but not breaking the skin. She is following with neurology amd neurosurgery for this. Extremities No visible deformities, no cyanosis, clubbing or edema. Musculoskeletal No tenderness or swelling, normal range of motion without obvious weakness. Integumentary No rashes or lesions. Neurologic No sensory or motor deficits, normal cerebellar function, normal gait. Psychiatric Alert and oriented times three. Coherent speech. Verbalizes understanding of our discussions today. Laboratory:Test performed on Jul 22, 2020 11:43 LDH (Total) 204 U/L Sodium 137 mmol/L Potassium 4.0 mmol/L Chloride 99 mmol/L CO2 29 mmol/L Anion Gap 13.0 BUN 10 mg/dL Creatinine 0.8 mg/dL Cr Clearance (Est) 63.5600 mL/min eGFR 73.7 mL/min Glucose 57 mg/dL Osmolality - Calculated 281 mOsm/kg Calcium 9.2 mg/dL Protein, Total 6.7 g/dL Albumin 4.1 g/dL Globulin 2.6 g/dL Bilirubin, Total 0.7 mg/dL ALT (SGPT) 38 U/L AST (SGOT) 47 U/L Alkaline Phosphatase 66 IU/L ESR (Sed Rate) 6 mm/hr WBC 6.0 10 3/uL RBC 3.74 10 6/uL HGB 11.2 g/dL HCT 35.2 % MCV 94.1 fL MCH 29.9 pg MCHC 31.8 g/dL RDW 15.1 % Platelet Count 174 10 3/cmm MPV 11.2 fL Neutrophils 2.72 10 3/uL Lymphocytes 2.1 10 3/uL Monocytes 1.0 10 3/uL Eosinophils 0.1 10 3/uL Basophils 0.1 10 3/uL Neutrophil % 45.5 % Lymphocyte % 35.6 % Monocyte % 16.6 % Eosinophil % 0.8 % Basophils % 1.2 % NRBC % 0 % IgG 806 mg/dL IgA 111 mg/dL IgM 615 mg/dL Test performed on Jun 22, 2020 09:55 TSH 1.89 uIU/mL Impression: 1. Patient with lymphoproliferative disorder with associated IgM monoclonal gammopathy. 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 The MYD88 mutation was detected, consistent with Waldenstr???m macroglobulinemia. 2. She has significant peripheral neuropathy, which I suspect is related. Her other medical illnesses include: 3. Hypertension. 4. Hyperlipidemia. 5. Fibromyalgia. 6. Degenerative arthritis and degenerative disease of the spine. She has associated cervical spinal canal stenosis. 7. She was reportedly found to be positive for the Factor V Leiden mutation. On 01/13/2020 she began a course of treatment with rituximab in combination with ibrutinib 420 mg daily. She completed 4 weekly infusions of rituximab and she then continued the ibrutinib at 420 mg daily. During treatment there was some decline in her renal function, but that subsequently resolved. She was then able to continue the ibrutinib at 420 mg daily wtih no adverse effects. She had evidence of very good objective response with improvement in the splenomegaly and the anemia and with a significant decrease in her M protein. There was no significant change, though, and her clinical status. As of her follow-up visit on 05/04/2020 her repeat protein letter pheresis showed residual M protein quantitating at 0.7 g/dL. At that point she began a second course of rituximab, administered weekly for 4 weeks. She completed this t reatment on 05/25/2020. She tolerated it well. During this time she also has continued ibrutinib 420 mg daily. Her overall clinical status appears stable. Plan: 1. Proceed with ibrutinib 420 mg daily. 2. Labs from today reviewed in detail and discussed with Mrs. Kinney and a copy was given to her. WBC 6.0, hemoglobin 11.2, platelets 124,000 ANC is 2700. Creatinine 0.8 potassium 4.0 LFTs reveal an ALT of 38 which is improved and AST is 47 which is also improved from her last visit. Her LDH is 204. Her IgA is 111, IgG 806 and IgM was 615. 3. I have requested a x-ray of her left knee for follow-up of the grinding and swelling. Most likely she is going to need referral to orthopedics and may need further testing depending on the x-ray. 4. She was encouraged to continue taking the antiemetics as needed for the nausea although it does sound it is like it is mild. 4. She is requesting a refill for lorazepam and Tylenol 3 be called to [facility] in [place]) authorized this with the physician and then call that in if okayed. 5. She will continue her planned follow-up with neurosurgery in [place]???Dr. Quevedo. 6. We will plan to see her back in 2 months with CBC CMP LDH, SPEP with MIGUELITO and QUIGS. 7. Mrs. Kinney is encouraged to contact us in the interim should questions or problems arise. 8. We will call her with the results of the x-ray of her left knee after it is obtained. Signed By: Rosetta Victoria-, AOP Robin Solorzano MD <<Signature on File>>
== END 2020-08-03 23:59 | disposition home or self-care (01) ==
LOC: ONCMED 06:00
PROVIDERS: PCP Physician Assistant; Visit Provider Nurse Practitioner
DX: C88.0 Waldenstrom macroglobulinemia (principal); D72.820 Lymphocytosis (symptomatic); D47.2 Monoclonal gammopathy; G62.9 Polyneuropathy, unspecified; I10 Essential (primary) hypertension; E78.5 Hyperlipidemia, unspecified; M79.7 Fibromyalgia; M47.9 Spondylosis, unspecified; M48.02 Spinal stenosis, cervical region; D68.51 Activated protein C resistance; Z79.899 Other long term (current) drug therapy
CPT/HCPCS: 36415; 80053; 82784; 83615; 84155; 84165; 85025; 85651; 99214

== ENCOUNTER → 2020-07-28 12:38 | Outpatient (BNVA) | payer MEDICARE, MEDICAID, SELFPAY | PROVIDERS: PCP Physician Assistant; Visit Provider Specialist | DX: G62.9 Polyneuropathy, unspecified (principal); C88.0 Waldenstrom macroglobulinemia; Z98.890 Other specified postprocedural states; Z87.891 Personal history of nicotine dependence; R20.0 Anesthesia of skin | CPT/HCPCS: 95909; 99215 ==

== ENCOUNTER 2020-08-12 14:02 | Outpatient (CLI) | payer MEDICARE, MEDICAID, SELFPAY ==
--- NOTE | 2020-08-12 14:05 | MM_ITS ---
WS: [id number] SCREENING DIGITAL MAMMOGRAM WITH CAD HISTORY: SCREENING COMPARISON: 04/01/2020 and 07/18/2019 Bilateral CC and MLO views submitted. Computer aided detection analyzed. Breast composition: There are scattered areas of fibroglandular density. No suspicious masses, microc alcifications or architectural distortion. MM/[place] [id number] IMPRESSION: BI-RADS: 1-Negative FOLLOW UP: 1 Year Follow-up
== END 2020-08-12 14:03 | disposition home or self-care (01) ==
PROVIDERS: PCP Physician Assistant; Visit Provider Physician Assistant
DX: Z12.31 Encounter for screening mammogram for malignant neoplasm of breast (principal)
CPT/HCPCS: 77067

== ENCOUNTER 2020-08-13 13:48 | Inpatient (IN) | payer MEDICARE, MEDICAID, SELFPAY ==
[2020-08-13] VITALS (15 sets, daily range): BP systolic 84–130; BP diastolic 48–90; PULSE 77–95; RESP 11–20; TEMP 36.5–38.4; O2SAT 92–99; BMI 21.6
--- NOTE | 2020-08-13 14:06 | XR_ITS ---
WS: [id number] XR chest 1V portable [id number] REASON FOR EXAM: fever FINDINGS: The most recent previous examination is 01/14/2013. Mild tortuosity of the thoracic aorta with no significant dilatation. Normal heart size. Interstitial and patchy alveolar infiltrative density in the left lower lung. There is some blunting of the left costophrenic angle. No definite acute abnormality in the right lung. XR/XR chest 1V portable [id number] IMPRESSION: Infiltrative change in the left lower lung of unknown chronicity but likely ind icative of acute/subacute pneumonitis.
--- NOTE | 2020-08-13 14:09 | ECG_ITS ---
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 Measurements Intervals [place] Rate: P: MN: QRS: 0 QRSD: T: 0 QT: QTc: Interpretive Statements SINUS RHYTHM ATYPICAL ECG WARNING: DATA QUALITY MAY AFFECT INTERPRETATION Compared to ECG 02/26/2020 09:17:11 ST (T wave) deviation no longer present Electronically Signed On 08-13-2020 21:21:23 [employer] by Ines Mchugh M.D. [email or web address]
[2020-08-13 14:42] LABS: Basophils % 0.4 %; Hematocrit 32.8 % (37.0-47.0); Hemoglobin 10.7 g/dL (11.5-15.3); Lymphocytes # 1.5 10^3/uL (0.8-4.8); Mean Corpuscular HGB Conc 32.6 g/dL (30.0-36.0); Mean Corpuscular Hemoglobin 30.7 pg (28.0-34.0); Mean Corpuscular Volume 94.3 fL (81-99); Mean Platelet Volume 11.9 fL (7.4-10.4); Monocytes # 1.7 10^3/uL (0.2-0.9); Monocytes % 16.1 %; Neutrophils # 7.22 10^3/uL (1.8-7.7); Neutrophils % 68.9 %; Nucleated Red Blood Cells % 0 %; Platelet Count 148 10^3/cmm (130-400); Red Blood Count 3.48 10^6/uL (4.1-5.3); Red Cell Distribution Width 14.3 % (12.1-15.1); White Blood Count 10.5 10^3/uL (4.0-10.0)
[2020-08-13 15:09] LABS: Alanine Aminotransferase 36 U/L (0-33); Albumin Level 3.5 g/dL (3.5-5.2); Alkaline Phosphatase 65 IU/L (35-105); Anion Gap 11.8 (5-19); Aspartate Amino Transferase 52 U/L (0-32); Blood Urea Nitrogen 13 mg/dL (6-20); Carbon Dioxide 27 mmol/L (22-29); Chloride 92 mmol/L (98-107); Globulin 2.4 g/dL (1.3-4.6); Glomerular Filtration Rate 64.1 mL/min (90-130); Glucose 97 mg/dL (65-115); Osmolality Calculated 264 mOsm/kg (285-295); Potassium 3.8 mmol/L (3.5-5.1); Sodium 127 mmol/L (136-145); Total Bilirubin 0.7 mg/dL (0.15-1.2); Total Protein 5.9 g/dL (6.6-8.7)
[2020-08-13 15:10] LABS: Lactic Sepsis W/Reflex 0.9 mmol/L (0.5-2.2)
[2020-08-13 15:18] LABS: Add Urine Microscopic? YES; Bilirubin Urine Neg (Negative); Blood Urine Trace (Negative); Glucose Urine UA Norm (Normal); Ketones Urine Negative (Negative); Leukocyte Esterase Urine 2+ (Negative); Nitrate Urine Negative (Negative); Protein Urine Neg (Negative); Specific Gravity, Urine 1.005 (1.005-1.030); Urine Appearance SL Hazy (CLEAR); Urine Color Yellow (Yellow); Urobilinogen Urine Norm (Negative); pH Urine 7 (5-7)
[2020-08-13 15:19] LABS: Add Urine Culture? No; Bacteria Urine TRACE /hpf; Squamous Epithelial Cell Urine 0-4 /hpf (0-5)
--- NOTE | 2020-08-13 15:30 | W.ED.AMS ---
HPI - Altered Mental Status General: Chief Complaint: Altered Mental Status Stated Complaint: WEAKNESS / CONFUSION Time Seen by Provider: 08/13/20 14:05 Source: patient History of Present Illness: HPI narrative: Patient sent by air from home for possible stroke, confusion, generalized weakness. On arrival, EMS found her to be febrile. She is mildly confused and generally weak, and a poor historian. She relates that she is taking oral chemotherapy and denies any sick contacts. She admits to cough, but denies chest pain, abdominal pain, dysuria, frequency, headache Review of Systems General: Reports: 10 or more systems reviewed and unremarkable except in HPI and below PFSH ED PFSH: Medical History (Updated 08/13/20 @ 15:38 by Diaz Chaney MD) Anxiety Cervical post-laminectomy syndrome Degenerative arthritis Fibromyalgia Hyperlipidemia Hypertension Hypothyroidism IgM monoclonal gammopathy of uncertain significance Lumbar post-laminectomy syndrome Peripheral neuropathy Restless leg syndrome Waldenstrom macroglobulinemia Surgical History History of cervical spinal surgery [facility]: 02/14/2017 Posterolateral cervical fusion C2-C6 03/02/2016 C3-C4 ACDFF, removal of prior anterior cervical plate, C4-C5 2004 C4-C5 ACDFF All operative reports scanned to chart History of section, low transverse X2 History of facial surgery 1992 Following trauma, x3 History of lumbar surgery 2013, 2011 and 2010 [facility]: Lumbar fusion/fixation History of shoulder surgery Right x2 Family History Mother Lung disease Father Myocardial infarction Hypertension Diabetes Social History Smoking and tobacco status: former smoker Alcohol intake: current Alcohol intake frequency: few times a week Household members: significant other Marital status: Life Partner Current occupational status: disabled History of recent travel: No Physical Exam Const: COMMON NORMALS: no acute distress and alert GENERAL APPEARANCE: cooperative and ill appearing; not in distress, not anxious and not lethargic ORIENTATION/CONSCIOUSNESS: not lethargic HENMT: COMMON NORMALS: normocephalic and atraumatic HEAD & SCALP: normocephalic and atraumatic Eye: COMMON NORMALS: Equal, round and reactive pupils present, EOMs intact bilaterally and no scleral icterus PUPIL: Yes Equal, round and reactive pupils present Resp: COMMON NORMALS: normal respiratory effort and No retractions Cardio: COMMON NORMALS: regular rate, regular rhythm and No murmurs present (Cardio) RATE: regular rate RHYTHM: regular rhythm GI: COMMON NORMALS: Normal to inspection, nondistended, normoactive bowel sounds present, Soft to palpation and non-tender PALPATION: Yes Soft to palpation Neuro: SENSORIUM/ORIENTATION: Yes alert and No lethargic Skin: COMMON NORMALS: no rashes or lesions noted GENERAL SKIN EXAM: no rashes or lesions noted Course Vital Signs: Vital signs: Vital Signs Temperature 101.0 F H 08/13/20 14:13 Pulse Rate 94 08/13/20 14:35 Respiratory Rate 18 08/13/20 14:35 Blood Pressure 111/61 08/13/20 14:35 Pulse Oximetry 98 08/13/20 14:35 MDM - Altered Mental Status MDM Narrative: Medical decision making narrative: Patient remained hemodynamically stable throughout ED course. She is on 2 L oxygen to supplement. Chest x-ray is consistent with left lower lobe pneumonia. She will be started on Vanco and Zosyn as she is in and out of healthcare facilities frequently. She admitted to the hospital service in stable condition. Lab Data: Labs: Lab Results 08/13/20 08/13/20 08/13/20 Range/Units 14:24 14:31 14:31 WBC (4.0-10.0) 10^3/ uL RBC (4.1-5.3) 10^6/u L Hgb (11.5-15.3) g/dL Hct (37.0-47.0) % MCV (81-99) fL MCH (28.0-34.0) pg MCHC (30.0-36.0) g/dL RDW (12.1-15.1) % Plt Count (130-400) 10^3/c mm MPV (7.4-10.4) fL Neut % (Auto) % Lymph % (Auto) % [place] % (Auto) % Eos % (Auto) % Baso % (Auto) % Neut # (Auto) (1.8-7.7) 10^3/u L Lymph # (Auto) (0.8-4.8) 10^3/u L [place] # (Auto) (0.2-0.9) 10^3/u L Eos # (Auto) (0.0-0.8) 10^3/u L Baso # (Auto) (0.0-0.1) 10^3/u L Nucleated RBC % (a uto) % Nucleated RBCs # /100WBC Sodium 127 L (136-145) mmol/L Potassium 3.8 (3.5-5.1) mmol/L Chloride 92 L (98-107) mmol/L Carbon Dioxide 27 (22-29) mmol/L Anion Gap 11.8 (5-19) BUN 13 (6-20) mg/dL Creatinine 0.9 (0.5-0.9) mg/dL GFR Calculation 64.1 L (90-130) mL/min Glucose 97 (65-115) mg/dL Calculated Osmolal ity 264 L (285-295) mOsm/k g Lactic Acid 0.9 (0.5-2.2) mmol/L Calcium 9.0 (8.5-10.5) mg/dL Total Bilirubin 0.7 (0.15-1.2) mg/dL AST 52 H (0-32) U/L ALT 36 H (0-33) U/L Alkaline Phosphata se 65 (35-105) IU/L Total Protein 5.9 L (6.6-8.7) g/dL Albumin 3.5 (3.5-5.2) g/dL Globulin 2.4 (1.3-4.6) g/dL Urine Color Yellow (Yellow) Urine Appearance Sl hazy (CLEAR) Urine pH 7 (5-7) Ur Specific Gravit y 1.005 (1.005-1.030) Urine Protein Neg (Negative) Urine Glucose (UA) Norm (Normal) Urine Ketones Negative (Negative) Urine Blood Trace H (Negative) Urine Nitrate Negative (Negative) Urine Bilirubin Neg (Negative) Urine Urobilinogen Norm (Negative) mg/dL Ur Leukocyte Mayra ase 2+ H (Negative) Urine RBC None (0-2) /hpf Urine WBC 10-15 H (0-5) /hpf Ur Squamous Epith Cells 0-4 H (0-5) /hpf Amorphous Sediment Not Reportable Urine Bacteria Trace (NONE) /hpf 08/13/20 Range/Units 14:31 WBC 10.5 H (4.0-10.0) 10^3/ uL RBC 3.48 L (4.1-5.3) 10^6/u L Hgb 10.7 L (11.5-15.3) g/dL Hct 32.8 L (37.0-47.0) % MCV 94.3 (81-99) fL MCH 30.7 (28.0-34.0) pg MCHC 32.6 (30.0-36.0) g/dL RDW 14.3 (12.1-15.1) % Plt Count 148 (130-400) 10^3/c mm MPV 11.9 H (7.4-10.4) fL Neut % (Auto) 68.9 % Lymph % (Auto) 14.0 % [place] % (Auto) 16.1 % Eos % (Auto) 0.0 % Baso % (Auto) 0.4 % Neut # (Auto) 7.22 (1.8-7.7) 10^3/u L Lymph # (Auto) 1.5 (0.8-4.8) 10^3/u L [place] # (Auto) 1.7 H (0.2-0.9) 10^3/u L Eos # (Auto) 0.0 (0.0-0.8) 10^3/u L Baso # (Auto) 0.0 (0.0-0.1) 10^3/u L Nucleated RBC % (a uto) 0 % Nucleated RBCs # 0.0 /100WBC Sodium (136-145) mmol/L Potassium (3.5-5.1) mmol/L Chloride (98-107) mmol/L Carbon Dioxide (22-29) mmol/L Anion Gap (5-19) BUN (6-20) mg/dL Creatinine (0.5-0.9) mg/dL GFR Calculation (90-130) mL/min Glucose (65-115) mg/dL Calculated Osmolal ity (285-295) mOsm/k g Lactic Acid (0.5-2.2) mmol/L Calcium (8.5-10.5) mg/dL Total Bilirubin (0.15-1.2) mg/dL AST (0-32) U/L ALT (0-33) U/L Alkaline Phosphata se (35-105) IU/L Total Protein (6.6-8.7) g/dL Albumin (3.5-5.2) g/dL Globulin (1.3-4.6) g/dL Urine Color (Yellow) Urine Appearance (CLEAR) Urine pH (5-7) Ur Specific Gravit y (1.005-1.030) Urine Protein (Negative) Urine Glucose (UA) (Normal) Urine Ketones (Negative) Urine Blood (Negative) Urine Nitrate (Negative) Urine Bilirubin (Negative) Urine Urobilinogen (Negative) mg/dL Ur Leukocyte Mayra ase (Negative) Urine RBC (0-2) /hpf Urine WBC (0-5) /hpf Ur Squamous Epith Cells (0-5) /hpf Amorphous Sediment Urine Bacteria (NONE) /hpf EKG Data^: EKG 1: EKG interpretation date: 08/13/20 EKG interpretation time: 14:19 Interpretation: Normal sinus rhythm, rate of 95, no ST elevation or depression, intervals within normal limits. Discharge Plan Discharge Patient Disposition: Admitted As Inpatient Clinical Impression: HAP (hospital-acquired pneumonia), Delirium due to general medical condition Condition: Stable Prescriptions: No Action levothyroxine 50 mcg capsule 50 mcg PO DAILY RF: 0 folic acid 1 mg tablet 1 mg PO DAILY RF: 0 trazodone 50 mg tablet 25 mg PO DAILY RF: 0 pantoprazole 40 mg tablet,delayed release (DR/EC) 40 mg PO DAILY RF: 0 thiamine HCl (vitamin B1) 100 mg tablet 100 mg PO DAILY RF: 0 metoprolol tartrate 25 mg tablet See Rx Instructions .ROUTE .COMPLEX RF: 0 ferrous gluconate 236 mg (27 mg iron) tablet 236 mg PO DAILY RF: 0 loperamide 2 mg capsule 2 mg PO Q6H PRN (Reason: Diarrhea) RF: 0 docusate sodium [Stool Softener] 100 mg capsule 100 mg PO DAILY RF: 0 biotin 10,000 mcg capsule 500 mcg PO DAILY RF: 0 hydrochlorothiazide 12.5 mg capsule 12.5 mg PO DAILY RF: 0 gabapentin 300 mg capsule 300 mg PO .COMPLEX Qty: 120 RF: 3 atorvastatin [Lipitor] 20 mg Tablet 20 mg PO DAILY RF: 0 prochlorperazine maleate 10 mg Tablet 10 mg PO Q4H PRN (Reason: Nausea) RF: 0 lorazepam 0.5 mg Tablet See Rx Instructions .ROUTE .COMPLEX RF: 0 ropinirole 0.25 mg Tablet See Rx Instructions .ROUTE .COMPLEX RF: 0 allopurinol 300 mg Tablet 300 mg PO DAILY RF: 0 Imbruvica 140 mg Tablet 420 mg PO DAILY RF: 0 multivitamin Tablet 1 tab PO DAILY RF: 0 cyclobenzaprine 10 mg Tablet See Rx Instructions .ROUTE .COMPLEX RF: 0 ascorbic acid (vitamin C) [Vitamin C] 500 mg Tablet 500 mg PO BID RF: 0 calcium carbonate-vitamin D3 [Calcium 500 + D] 500 mg(1,250mg) -200 unit Tablet See Rx Instructions .ROUTE .COMPLEX RF: 0 Referrals: Lucy Dean PA [Primary Care Provider] - Discharge Diet: Usual diet Coding Level of Care Code ED Slaughterer Religious Ritual for Luis Walden
[2020-08-13] MEDS: piperacillin-tazobactam 3.375 GM in sodium chloride 0.9% (plus) 50 ML IV (15:39)
[2020-08-13] MEDS: vancomycin 1,000 MG in sodium chloride 0.9% 250 ML 250 MG IV (15:43)
--- NOTE | 2020-08-13 15:59 | P.HP_ITS ---
Providers/Chief Complaint Primary Care Provider: Lucy Dean Chief Complaint: WEAKNESS / CONFUSION History of Present Illness 60-year-old female with a past medical history significant for, hypertension, dyslipidemia, hypothyroidism, restless leg syndrome, fibromyalgia, degenerative arthritis and waldenstrom macroglobulinemia on Imbruvica with servere peripheral neuropathy who is presenting to ER with altered mental status. No family at bedside. patient was not able to provide much history of symptoms leading to ER visit. Per review of EMR patient was airlifted due to suspected stroke. Unclear duration of mental status change. Upon arrival to Er she was noted to have a temperature of 101, blood pressure 111/61, respiratory rate of 18 and heart rate of 95. She was arousable and followed commands however would fall back to sleep. No focal deficits were noted in route to ER or by ER physician. Laboratory workup on arrival showed a WBC of 10.5, hemoglobin of 10.7, hematocrit 32.8 and platelet count 148.. sodium 127, potassium 3.8, chloride 92, bicarb 27, BUN 13 and creatinine of 0.9. Lactic acid of 0.9. AST of 52, ALT of 36 and alkaline phosphatase is 65. urinalysis showed 2+ leukocyte esterase, 10 to 15 wbc's. c hest x-ray showed interstitial and patchy alveolar infiltrate densities in the left lower lung. Patient was given Vancomycin 1g IV x 1 and Zosyn 3.375g IV x 1. No recent hospitalization noted. Follows with Dr. Rosario and Dr. Oliveira outpatient. Review of Systems General: Reports: ROS unobtainable due to medical condition Medications/Allergies Home Medications Medication Instructions Recorded Confirmed Last Taken Type ascorbic acid (vitamin C) [Vitamin 500 mg PO BID 12/05/19 08/13/20 02/25/20 History C] calcium carbonate-vitamin D3 See Rx Instructions .ROUTE .COMPLEX 12/05/19 08/13/20 02/25/20 History [Calcium 500 + D] cyclobenzaprine See Rx Instructions .ROUTE .COMPLEX 12/05/19 08/13/20 02/25/20 History multivitamin 1 tab PO DAILY 12/05/19 08/13/20 02/25/20 History Imbruvica 420 mg PO DAILY 02/26/20 08/13/20 02/25/20 History allopurinol 300 mg PO DAILY 02/26/20 08/13/20 02/25/20 History atorvastatin [Lipitor] 20 mg PO DAILY 02/26/20 08/13/20 02/25/20 History lorazepam See Rx Instructions .ROUTE .COMPLEX 02/26/20 08/13/20 Unknown History prochlorperazine maleate 10 mg PO Q4H PRN 02/26/20 08/13/20 02/25/20 History ropinirole See Rx Instructions .ROUTE .COMPLEX 02/26/20 08/13/20 02/25/20 History docusate sodium 100 mg capsule 100 mg PO DAILY 05/13/20 08/13/20 Unknown History ferrous gluconate 236 mg (27 mg 236 mg PO DAILY 05/13/20 08/13/20 Unknown History iron) tablet folic acid 1 mg tablet 1 mg PO DAILY 05/13/20 08/13/20 Unknown History levothyroxine 50 mcg capsule 50 mcg PO DAILY 05/13/20 08/13/20 Unknown History loperamide 2 mg capsule 2 mg PO Q6H PRN 05/13/20 08/13/20 Unknown History metoprolol tartrate 25 mg tablet See Rx Instructions .ROUTE .COMPLEX 05/13/20 08/13/20 Unknown History pantoprazole 40 mg tablet,delayed 40 mg PO DAILY 05/13/20 08/13/20 Unknown History release thiamine HCl (vitamin B1) 100 mg 100 mg PO DAILY 05/13/20 08/13/20 Unknown History tablet trazodone 50 mg tablet 25 mg PO DAILY 05/13/20 08/13/20 Unknown History biotin 10,000 mcg capsule 500 mcg PO DAILY cap 07/28/20 08/13/20 Unknown History gabapentin 300 mg capsule 300 mg PO .COMPLEX #120 cap 07/28/20 08/13/20 Unknown Rx hydrochlorothiazide 12.5 mg capsule 12.5 mg PO DAILY 07/28/20 08/13/20 Unknown History Allergies Allergy/AdvReac Type Severity Reaction Status Date / Time hydrocortisone Allergy Severe Elevated Verified 08/13/20 13:50 [From Cortizone-10] heart rate hydromorphone [From Dilaudid] Allergy Severe Hallucinati Verified 08/13/20 13:50 ons meperidine [From Demerol] Allergy Severe Excessive Verified 08/13/20 13:50 vomitting morphine Allergy Severe Heart rate Verified 08/13/20 13:50 drops haloperidol [From Haldol] Allergy difficulty Verified 08/13/20 13:50 breathing PFSH Acute PFSH: Medical History (Updated 08/13/20 @ 16:44 by Asaf Arias MD) Anxiety Cervical post-laminectomy syndrome Degenerative arthritis Fibromyalgia Hyperlipidemia Hypertension Hypothyroidism IgM monoclonal gammopathy of uncertain significance Lumbar post-laminectomy syndrome Peripheral neuropathy Restless leg syndrome Waldenstrom macroglobulinemia Surgical History History of cervical spinal surgery [facility]: 02/14/2017 Posterolateral cervical fusion C2-C6 03/02/2016 C3-C4 ACDFF, removal of prior anterior cervical plate, C4-C5 2004 C4-C5 ACDFF All operative reports scanned to chart History of section, low transverse X2 History of facial surgery 1991 Following trauma, x3 History of lumbar surgery 2013, 2011 and 2010 [facility]: Lumbar fusion/fixation History of shoulder surgery Right x2 Family History Mother Lung disease Father Myocardial infarction Hypertension Diabetes Social History Smoking and tobacco status: former smoker Alcohol intake: current Alcohol intake frequency: few times a week Household members: significant other Marital status: Life Partner Current occupational status: disabled History of recent travel: No Vitals/I&O/Wt Last Vital Signs Temp 98.6 F 08/13/20 15:37 Pulse 91 08/13/20 15:34 Resp 18 08/13/20 15:34 BP 100/58 08/13/20 15:34 Pulse Ox 98 08/13/20 15:34 Weight last 48 hrs Weight 48.534 kg Physical Exam Narrative: EXAM NARRATIVE: General: Confused, oriented to person HEENT: Grossly unremarkable, on 02 at 2l via NC Chest : Non-labored respiration CVS: NSR ABD: Non-distended Ext : No edema Neuro: CN difficult to assess however grossly appeared intact, MS 5/5, weak, slow movement. no focal deficits. Data : 08/13/20 14:31 08/13/20 14:31 Micro: Microbiology 08/13/20 14:31 Blood Culture - Preliminary Blood SPECIMEN COLLECTED A&P Assessment and plan (1) Altered mental status: Status: Acute (2) Community acquired pneumonia: Status: Acute (3) Waldenstrom macroglobulinemia: Status: Acute (4) Peripheral neuropathy: Status: Chronic Qualifiers: Peripheral neuropathy type: polyneuropathy, unspecified Qualified Code(s): G62.9 - Polyneuropathy, unspecified (5) Hypertension: Status: Acute (6) Hyponatremia: Status: Acute (7) Hypothyroidism: Status: Acute (8) Anxiety: Status: Acute (9) Fibromyalgia: Status: Acute (10) Hyperlipidemia: Status: Acute (11) Hypertension: Status: Acute Sepsis due to LLL pneumonia - Fever or 101, HR 95 - Immunosuppressed - Will continue IV zosyn 3.375g Q8hr - Vancomycin pharmacy to dose - 10 Blood culture obtained x 2 - 10 Urine culture ordered - Obtain sputum culture if possible - Urinary strep/legionella - COVID-19 PCR ordered - Droplet precautions Acute encephalopathy - Likely infectious - Will obtain CT head w/o contrast however due to hx of waldenstroms - Bedside swallow prior to initiating diet - Neuro-checks q4hr - Avoid benzo/sedatives. - Fall Precautions Hypovolemic Hyponatremia - NS at 75 cc/hr - Repeat BMP in am Waldenstrom Macroglobulinemia - Following with Dr. Oliveira outpatient - Currently on Imbruvica ( not on formulary ) - Can take own home med Hypertension - Currently soft BP - Will hold home anti-hypertensives. Hypothyroidism - Synthroid 50 mcg PO daily Restless leg syndrome - Ropinirole - verify home dose Dyslipidemia - Lipitor 20 mg PO daily - LFT slightly elevated - Trend and hold if worsening Peripheral neuropathy - Gabapentin - Verify home dose DVT ppx - Lovenox 40 mg SQ daily Attestations Medical Necessity Statement*: Patient being admitted for sepsis, UTI, LLL pneumonia, AMS, hyponatremia requiring IV abx. Anticipate over 2 midnight stay in hospital for eval and treatment. Time Spent in Patient Care: 16 - 35 minutes (>than 50% of time spent in counselling and/or direct pt care on unit) . Coding Level of Care Code Acute Set Key Driver for Luis Walden Diagnoses Altered mental status R41.82 Community acquired pneumonia J18.9 Waldenstrom macroglobulinemia C88.0 Peripheral neuropathy G62.9 Peripheral neuropathy type: polyneuropathy, unspecified Hypertension I10 Hyponatremia E87.1 Hypothyroidism E03.9 Anxiety F41.9 Fibromyalgia M79.7 Hyperlipidemia E78.5 Hypertension I10
--- NOTE | 2020-08-13 17:00 | PC.NURSE ---
Notifed Dr Chaney of Blood Pressure and temp. Fluid bolus orders. New 20g in Right hand , Fluids started on pump at 500 ml/hr.
[2020-08-13 17:02] LABS: SARS Covid-2 Antigen Negative (Negative)
--- NOTE | 2020-08-13 17:07 | CTR_ITS ---
PROCEDURE INFORMATION: Exam: CT Head Without Contrast Exam date and time: 08/13/2020 5:09 PM Age: 60 years old Clinical indication: Altered mental status/memory loss and weakness, extremity; Confusion or disorientation; Prior surgery; Additional info: AMS TECHNIQUE: Imaging protocol: Computed tomography of the head without contrast. Radiation optimization: All CT scans at this facility use at least one of these dose optimization techniques: automated exposure control; mA and/or kV adjustment per patient size (includes targeted exams where dose is matched to clinical indication); or iterative reconstruction. COMPARISON: CT head wo con* [id number] 02/26/2020 8:03 AM RADIATION DOSE METRICS: Total DLP (mGy-cm): 744.56 FINDINGS: Brain: No evidence of active or acute intracranial pathologic process, hemorrhage, or trauma. Potential tiny old lacunar insult posterior right parietal lobe centrum semi ovale. No mass effect. No midline shift. No generalized cerebral edema or demyelination. Cerebral ventricles: No ventriculomegaly. Bones/joints: Unremarkable. No acute fracture. Paranasal sinuses: Visualized sinuses are unremarkable. No fluid levels. Mastoid air cells: Visualized mastoid air cells are well aerated. Soft tissues: Unremarkable. CT/CT head wo con* [id number] IMPRESSION: No acute intracranial abnormality. Radiation Dose CTDIVOL = (mGy): DLP = 744.56 (mGy-cm)
[2020-08-13] MEDS: enoxaparin 40 mg/0.4 mL Syringe SUBCUT (17:15)
[2020-08-13] MEDS: sodium chloride 0.9% 1,000 ML 75 ML IV (17:17)
--- NOTE | 2020-08-13 17:53 | PC.NURSE ---
Informed Dr Chaney of BP, temp and heart rate. Requesting Pressors. Changed BP cuff and changed arms from right arm to left arm.
--- NOTE | 2020-08-13 18:26 | PC.NURSE ---
Addendum entered by Lali Harrison RN 08/13/20 18:29: 2.12 mgc/min= 8mg/hr Original Note: Norepinephrine started at 1825 at 8mcg/hr, BP 85/48, HR 80
--- NOTE | 2020-08-13 18:40 | PC.NURSE ---
Addendum entered by Lali Harrison RN 08/13/20 18:42: 2nd liter of NS on pump, rate 800 mls/ hr Original Note: Pt resting , lights off , no acute distress. IV's patent fluids and RX infusing.
--- NOTE | 2020-08-13 21:11 | PC.NURSE ---
Arrived from ED, transferred self to bed with 1 assist, AO x4, denied pain, denied SOB 2L NC, BP 120/72 Levophed paused
--- NOTE | 2020-08-13 21:25 | PC.PHAR ---
Vancomycin is dosed at 1gm IVPB every 24 hours to produce a predicted trough level of 15.80 (population based pharmacokinetic analysis). A trough level has been ordered from the lab to be obtained before the fourth dose to confirm and adjust if needed.
--- NOTE | 2020-08-13 22:00 | PC.NURSE ---
Significant other called and informed this nurse he would bring in cancer pills in the AM in original prescription bottle
[2020-08-14] VITALS (18 sets, daily range): BP systolic 113–164; BP diastolic 64–90; PULSE 89–120; RESP 12–26; TEMP 36.4–36.9; O2SAT 94–100
[2020-08-14] MEDS: piperacillin-tazobactam 3.375 GM in sodium chloride 0.9% (plus) 50 ML IV ×4 (01:13→23:07)
[2020-08-14 04:22] LABS: Basophils # 0.1 10^3/uL (0.0-0.1); Basophils % 0.7 %; Eosinophils % 0.1 %; Hematocrit 29.4 % (37.0-47.0); Hemoglobin 9.7 g/dL (11.5-15.3); Lymphocytes # 1.6 10^3/uL (0.8-4.8); Lymphocytes % 17.6 %; Mean Corpuscular Hemoglobin 30.5 pg (28.0-34.0); Mean Corpuscular Volume 92.5 fL (81-99); Mean Platelet Volume 12.3 fL (7.4-10.4); Monocytes # 1.4 10^3/uL (0.2-0.9); Neutrophils # 5.85 10^3/uL (1.8-7.7); Neutrophils % 65.3 %; Nucleated Red Blood Cells % 0 %; Platelet Count 126 10^3/cmm (130-400); Red Blood Count 3.18 10^6/uL (4.1-5.3)
[2020-08-14 04:58] LABS: Alanine Aminotransferase 26 U/L (0-33); Albumin Level 3.1 g/dL (3.5-5.2); Alkaline Phosphatase 58 IU/L (35-105); Anion Gap 11.2 (5-19); Aspartate Amino Transferase 44 U/L (0-32); Blood Urea Nitrogen 10 mg/dL (6-20); Calcium 8.2 mg/dL (8.5-10.5); Carbon Dioxide 26 mmol/L (22-29); Chloride 99 mmol/L (98-107); Creatinine Clr Calc Pharmacy 66.3009; Globulin 2.2 g/dL (1.3-4.6); Glomerular Filtration Rate 85.6 mL/min (90-130); Glucose 72 mg/dL (65-115); Osmolality Calculated 274 mOsm/kg (285-295); Potassium 3.2 mmol/L (3.5-5.1); Sodium 133 mmol/L (136-145); Total Bilirubin 0.8 mg/dL (0.15-1.2); Total Protein 5.3 g/dL (6.6-8.7)
[2020-08-14 05:11] LABS: Procalcitonin 0.33 ng/mL (0-0.5)
[2020-08-14] MEDS: acetaminophen 325 mg Tablet 650 MG PO (07:41)
[2020-08-14] MEDS: atorvastatin 40 mg Tablet 20 MG PO (08:39)
[2020-08-14] MEDS: allopurinol 300 mg Tablet PO (08:39)
[2020-08-14] MEDS: levothyroxine 50 mcg Tablet PO (08:40)
[2020-08-14] MEDS: thiamine 100 mg Tablet PO (08:40)
[2020-08-14] MEDS: pantoprazole DR 40 mg Tablet PO (08:40)
[2020-08-14] MEDS: sodium chloride 0.9% 1,000 ML 75 ML IV (09:54)
--- NOTE | 2020-08-14 13:54 | PM.PN ---
Subjective Subjective: Interval history: 60-year-old female with a past medical history significant for, hypertension, dyslipidemia, hypothyroidism, restless leg syndrome, fibromyalgia, degenerative arthritis and waldenstrom macroglobulinemia on Imbruvica with servere peripheral neuropathy who is presenting to ER with altered mental status. No family at bedside. patient was not able to provide much history of symptoms leading to ER visit. Per review of EMR patient was airlifted due to suspected stroke. Unclear duration of mental status change. Upon arrival to Er she was noted to have a temperature of 101, blood pressure 111/61, respiratory rate of 18 and heart rate of 95. She was arousable and followed commands however would fall back to sleep. No focal deficits were noted in route to ER or by ER physician. Laboratory workup on arrival showed a WBC of 10.5, hemoglobin of 10.7, hematocrit 32.8 and platelet count 148.. sodium 127, potassium 3.8, chloride 92, bicarb 27, BUN 13 and creatinine of 0.9. Lactic acid of 0.9. AST of 52, ALT of 36 and alkaline phosphatase is 65. urinalysis showed 2+ leukocyte esterase, 10 to 15 wbc's. chest x-ray showed interstitial and patchy alveolar infiltrate densities in the left lower lung. Patient was given Vancomycin 1g IV x 1 and Zosyn 3.375g IV x 1. No recent hospitalization noted. Follows with Dr. Rosraio and Dr. Oliveira outpatient. Subjective Patient was alert and awake today. Mental status had significantly improved. No fever or chills. No nausea or vomiting. Respiratory status remained stable Vitals/I&O/Wt Last Vital Signs Temp 97.8 F 08/14/20 15:00 Pulse 106 H 08/14/20 20:00 Resp 17 08/14/20 20:00 BP 131/73 08/14/20 20:00 Pulse Ox 99 08/14/20 20:00 08/14/20 08/14/20 08/14/20 06:59 14:59 22:59 Intake Total 1000 / 3105.055 800 / 800 300 / 1100 Output Total 600 / 600 1350 / 1350 500 / 1850 Balance 400 / 2505.055 -550 / -550 -200 / -750 Weight last 48 hrs Weight 54.295 kg Weight 48.534 kg Physical Exam Narrative: EXAM NARRATIVE: General: Alert, awake and oriented HEENT: Grossly unremarkable, on 02 at 2l via NC Chest : Non-labored respiration CVS: NSR ABD: Non-distended Ext : No edema Neuro: Grossly unremarkable Data : 08/14/20 03:30 08/14/20 03:30 Micro: Microbiology 08/13/20 18:07 Blood Culture - Preliminary Blood NEGATIVE TO DATE 08/13/20 14:31 Blood Culture - Preliminary Blood NEGATIVE TO DATE A&P Assessment and plan (1) Altered mental status: Status: Acute (2) Community acquired pneumonia: Status: Acute (3) Waldenstrom macroglobulinemia: Status: Acute (4) Peripheral neuropathy: Status: Chronic Qualifiers: Peripheral neuropathy type: polyneuropathy, unspecified Qualified Code(s): G62.9 - Polyneuropathy, unspecified (5) Hypertension: Status: Acute (6) Hyponatremia: Status: Acute (7) Hypothyroidism: Status: Acute (8) Anxiety: Status: Acute (9) Fibromyalgia: Status: Acute (10) Hyperlipidemia: Status: Acute Sepsis due to LLL pneumonia - Fever or 101, HR 95 on admission - Immunosuppressed - Will continue IV zosyn 3.375g Q8hr - Vancomycin pharmacy to dose - 08/13 Blood culture obtained x 2 - 08/13 Urine culture - pending - Obtain sputum culture if possible - Urinary strep/legionella - COVID-19 PCR ordered - pending - Droplet precautions Acute encephalopathy- Improving - Likely infectious - CT head w/o contrast - negative. - Avoid benzo/sedatives. - Fall Precautions Hypovolemic Hyponatremia - NS at 75 cc/hr - Repeat BMP in am - Na improved 129 -133 Waldenstrom Macroglobulinemia - Following with Dr. Oliveira outpatient - Currently on Imbruvica ( not on formulary ) - Can take own home med Hypertension - Currently soft BP - Will hold home anti-hypertensives. Hypothyroidism - Synthroid 50 mcg PO daily Restless leg syndrome - Ropinirole ok to resume Dyslipidemia - Lipitor 20 mg PO daily - LFT slightly elevated - Trend and hold if worsening Peripheral neuropathy - Gabapentin DVT ppx - Lovenox 40 mg SQ daily * Transfer to regular medical floor. Orders placed. Attestations Medical Necessity Statement*: Require further with sedation for management of sepsis requiring IV antibiotics. Time Spent in Patient Care: Greater than 35 minutes (>than 50% of time spent in counselling and/or direct pt care on unit). Coding Level of Care Code Acute Culinary Worker for Chg Fwd Diagnoses Altered mental status R41.82 Community acquired pneumonia J18.9 Waldenstrom macroglobulinemia C88.0 Peripheral neuropathy G62.9 Peripheral neuropathy type: polyneuropathy, unspecified Hypertension I10 Hyponatremia E87.1 Hypothyroidism E03.9 Anxiety F41.9 Fibromyalgia M79.7 Hyperlipidemia E78.5
[2020-08-14] MEDS: vancomycin 1,000 MG in sodium chloride 0.9% 250 ML 250 MG IV (15:07)
[2020-08-14] MEDS: enoxaparin 40 mg/0.4 mL Syringe SUBCUT (16:53)
[2020-08-14] MEDS: gabapentin 300 mg Capsule 600 MG PO (20:27)
[2020-08-14] MEDS: TRAMadol 50 mg Tablet PO (20:27)
[2020-08-14] MEDS: oxyCODONE 5 mg IR Tab/Cap PO (21:27)
[2020-08-15] VITALS (22 sets, daily range): BP systolic 120–170; BP diastolic 69–122; PULSE 83–118; RESP 11–25; TEMP 36.6–38.5; O2SAT 72–100; BMI 25.4
[2020-08-15] MEDS: sodium chloride 0.9% 1,000 ML 75 ML IV ×2 (01:08→15:49)
[2020-08-15 04:49] LABS: Basophils # 0.1 10^3/uL (0.0-0.1); Basophils % 0.9 %; Eosinophils % 0.7 %; Hematocrit 29.5 % (37.0-47.0); Hemoglobin 9.4 g/dL (11.5-15.3); Lymphocytes # 1.1 10^3/uL (0.8-4.8); Lymphocytes % 19.8 %; Mean Corpuscular HGB Conc 31.9 g/dL (30.0-36.0); Mean Corpuscular Hemoglobin 30.2 pg (28.0-34.0); Mean Corpuscular Volume 94.9 fL (81-99); Mean Platelet Volume 12.2 fL (7.4-10.4); Monocytes # 1.1 10^3/uL (0.2-0.9); Monocytes % 20.2 %; Neutrophils # 3.11 10^3/uL (1.8-7.7); Neutrophils % 58.2 %; Nucleated Red Blood Cells % 0 %; Platelet Count 128 10^3/cmm (130-400); Red Blood Count 3.11 10^6/uL (4.1-5.3); Red Cell Distribution Width 14.4 % (12.1-15.1); White Blood Count 5.4 10^3/uL (4.0-10.0)
[2020-08-15 05:12] LABS: Alanine Aminotransferase 23 U/L (0-33); Albumin Level 2.9 g/dL (3.5-5.2); Alkaline Phosphatase 61 IU/L (35-105); Anion Gap 10.3 (5-19); Aspartate Amino Transferase 34 U/L (0-32); Blood Urea Nitrogen 8 mg/dL (6-20); Carbon Dioxide 27 mmol/L (22-29); Chloride 103 mmol/L (98-107); Globulin 2.6 g/dL (1.3-4.6); Glomerular Filtration Rate 85.6 mL/min (90-130); Glucose 101 mg/dL (65-115); Osmolality Calculated 282 mOsm/kg (285-295); Potassium 3.3 mmol/L (3.5-5.1); Sodium 137 mmol/L (136-145); Total Bilirubin 0.9 mg/dL (0.15-1.2); Total Protein 5.5 g/dL (6.6-8.7)
[2020-08-15] MEDS: levothyroxine 50 mcg Tablet PO (08:07)
[2020-08-15] MEDS: piperacillin-tazobactam 3.375 GM in sodium chloride 0.9% (plus) 50 ML IV ×2 (08:07→15:48)
[2020-08-15] MEDS: folic acid 1 mg Tablet PO (08:07)
[2020-08-15] MEDS: atorvastatin 40 mg Tablet 20 MG PO (08:07)
[2020-08-15] MEDS: pantoprazole DR 40 mg Tablet PO (08:07)
[2020-08-15] MEDS: thiamine 100 mg Tablet PO (08:07)
[2020-08-15] MEDS: allopurinol 300 mg Tablet PO (08:07)
[2020-08-15] MEDS: gabapentin 300 mg Capsule PO ×2 (08:08→11:47)
[2020-08-15] MEDS: metoprolol tartrate 25 mg Tablet PO (08:08)
[2020-08-15] MEDS: vancomycin 1,000 MG in sodium chloride 0.9% 250 ML 250 MG IV (15:48)
--- NOTE | 2020-08-15 15:49 | P.PN_ITS ---
Subjective Subjective: Interval history: 60-year-old female with a past medical history significant for, hypertension, dyslipidemia, hypothyroidism, restless leg syndrome, fibromyalgia, degenerative arthritis and waldenstrom macroglobulinemia on Imbruvica with servere peripheral neuropathy who is presenting to ER with altered mental status. No family at bedside. patient was not able to provide much history of symptoms leading to ER visit. Per review of EMR patient was airlifted due to suspected stroke. Unclear duration of mental status change. Upon arrival to Er she was noted to have a temperature of 101, blood pressure 111/61, respiratory rate of 18 and heart rate of 95. She was arousable and followed commands however would fall back to sleep. No focal deficits were noted in route to ER or by ER physician. Laboratory workup on arrival showed a WBC of 10.5, hemoglobin of 10.7, hematocrit 32.8 and platelet count 148.. sodium 127, potassium 3.8, chloride 92, bicarb 27, BUN 13 and creatinine of 0.9. Lactic acid of 0.9. AST of 52, ALT of 36 and alkaline phosphatase is 65. urinalysis showed 2+ leukocyte esterase, 10 to 15 wbc's. chest x-ray showed interstitial and patchy alveolar infiltrate densities in the left lower lung. Patient was given Vancomycin 1g IV x 1 and Zosyn 3.375g IV x 1. No recent hospitalization noted. Follows with Dr. Rosario and Dr. Oliveira outpatient. Subjective Patient was alert and awake today. Mental status had significantly improved. No fever or chills. No nausea or vomiting. Respiratory status remained stable 08/15/20 No new clinical events overnight. No fever or chills. Mental status back to baseline. tolerating oral intake. Vitals/I&O/Wt Last Vital Signs Temp 97.8 F 08/15/20 08:00 Pulse 101 H 08/15/20 13:00 Resp 17 08/15/20 13:00 BP 152/90 08/15/20 13:00 Pulse Ox 100 08/15/20 13:00 08/15/20 08/15/20 08/15/20 06:59 14:59 22:59 Intake Total 1300 / 3200 2200 / 2200 Balance 1300 / 1350 2200 / 2200 Weight last 48 hrs Weight 57.243 kg Weight 54.295 kg Physical Exam Narrative: EXAM NARRATIVE: General: Alert, awake and oriented HEENT: Grossly unremarkable, on 02 at 3Ll via NC Chest : Non-labored respiration CVS: NSR ABD: Non-distended Ext : No edema Neuro: Grossly unremarkable Data : 08/15/20 03:58 08/15/20 03:58 Micro: Microbiology 08/14/20 01:20 Urine Culture - Preliminary Urine Catheterized 08/13/20 18:07 Blood Culture - Preliminary Blood NEGATIVE TO DATE 08/13/20 14:31 Blood Culture - Preliminary Blood NEGATIVE TO DATE A&P Assessment and plan (1) Altered mental status: Status: Acute (2) Community acquired pneumonia: Status: Acute (3) Waldenstrom macroglobulinemia: Status: Acute (4) Peripheral neuropathy: Status: Chronic Qualifiers: Peripheral neuropathy type: polyneuropathy, unspecified Qualified Code(s): G62.9 - Polyneuropathy, unspecified (5) Hypertension: Status: Acute (6) Hyponatremia: Status: Acute (7) Hypothyroidism: Status: Acute (8) Anxiety: Status: Acute (9) Fibromyalgia: Status: Acute (10) Hyperlipidemia: Status: Acute Sepsis due to LLL pneumonia possible aspiration - Fever or 101, HR 95 on admission - Immunosuppressed - Zosyn 3.375g Q8hr ( anaerobic coverage ) - Vancomycin tai discontinue - 08/13 Blood culture x - NGTD - 08/13 Urine culture - Pending - Obtain sputum culture if possible - COVID-19 PCR ordered - pending - Droplet precautions Acute hypoxic respiratory failure - Currently on 3L - Repeat Chest x-ray PRN - Wean as tolerated - Likely due to above - Home o2 eval at time of discharge. Acute encephalopathy- Resolved - Likely infectious - CT head w/o contrast - negative. - Avoid benzo/sedatives. - Fall Precautions Hypovolemic Hyponatremia - Resolved - D/C NS at 75 cc/hr - Na improved 129 -133 - 137 Waldenstrom Macroglobulinemia - Following with Dr. Oliveira outpatient - Currently on Imbruvica ( not on formulary ) - Can take own home med Hypertension - Will resume antihypertensives Hypothyroidism - Synthroid 50 mcg PO daily Restless leg syndrome - Ropinirole 0.25 mg PO qhs Dyslipidemia - Lipitor 20 mg PO daily - LFT slightly elevated - Trend and hold if worsening Peripheral neuropathy - Gabapentin DVT ppx - Lovenox 40 mg SQ daily * Transfer to regular medical floor. Orders placed. Attestations Medical Necessity Statement*: will require further hospitalization for IV antibiotics, pending COVID-19 PCR and weaning oxygen. Coding Level of Care Code Acute Manager Of Community Relations for Chg Fwd Diagnoses Altered mental status R41.82 Community acquired pneumonia J18.9 Waldenstrom macroglobulinemia C88.0 Peripheral neuropathy G62.9 Peripheral neuropathy type: polyneuropathy, unspecified Hypertension I10 Hyponatremia E87.1 Hypothyroidism E03.9 Anxiety F41.9 Fibromyalgia M79.7 Hyperlipidemia E78.5
[2020-08-15] MEDS: TRAMadol 50 mg Tablet PO (15:54)
[2020-08-15] MEDS: enoxaparin 40 mg/0.4 mL Syringe SUBCUT (16:07)
[2020-08-15] MEDS: gabapentin 300 mg Capsule 600 MG PO (19:27)
[2020-08-15] MEDS: acetaminophen 325 mg Tablet 650 MG PO (19:27)
--- NOTE | 2020-08-15 19:53 | PC.NURSE ---
Report called to [facility] on [facility]. [facility] taken to [facility] via w/c by warehouse operations manager. Pt belongings and medications sent with patient. Transferred to [facility] [phone].
[2020-08-15] MEDS: trazodone 50 mg Tablet 25 MG PO (23:01)
[2020-08-15] MEDS: ropinirole 0.25 mg Tablet PO (23:02)
[2020-08-15] MEDS: metoprolol tartrate 50 mg Tablet PO (23:02)
[2020-08-16] VITALS (9 sets, daily range): BP systolic 114–136; BP diastolic 67–90; PULSE 73–93; RESP 16–18; TEMP 36.6–37.4; O2SAT 93–95
[2020-08-16] MEDS: piperacillin-tazobactam 3.375 GM in sodium chloride 0.9% (plus) 50 ML IV ×3 (00:18→17:54)
[2020-08-16] MEDS: sodium chloride 0.9% 1,000 ML 75 ML IV (04:33)
[2020-08-16 05:12] LABS: Basophils % 0.6 %; Eosinophils % 0.3 %; Hematocrit 32.4 % (37.0-47.0); Hemoglobin 10.1 g/dL (11.5-15.3); Lymphocytes # 1.4 10^3/uL (0.8-4.8); Lymphocytes % 21.5 %; Mean Corpuscular HGB Conc 31.2 g/dL (30.0-36.0); Mean Corpuscular Hemoglobin 30.3 pg (28.0-34.0); Mean Corpuscular Volume 97.3 fL (81-99); Mean Platelet Volume 12.1 fL (7.4-10.4); Monocytes # 1.7 10^3/uL (0.2-0.9); Neutrophils % 52.3 %; Nucleated Red Blood Cells % 0 %; Platelet Count 144 10^3/cmm (130-400); Red Blood Count 3.33 10^6/uL (4.1-5.3); Red Cell Distribution Width 14.1 % (12.1-15.1); White Blood Count 6.7 10^3/uL (4.0-10.0)
[2020-08-16 05:32] LABS: Blood Urea Nitrogen 6 mg/dL (6-20); Carbon Dioxide 26 mmol/L (22-29); Chloride 99 mmol/L (98-107); Glomerular Filtration Rate 85.6 mL/min (90-130); Glucose 86 mg/dL (65-115); Sodium 133 mmol/L (136-145)
[2020-08-16 05:33] LABS: Alanine Aminotransferase 23 U/L (0-33); Albumin Level 3.1 g/dL (3.5-5.2); Alkaline Phosphatase 73 IU/L (35-105); Calcium 8.2 mg/dL (8.5-10.5); Osmolality Calculated 273 mOsm/kg (285-295); Total Bilirubin 0.9 mg/dL (0.15-1.2); Total Protein 6.1 g/dL (6.6-8.7)
[2020-08-16 05:51] LABS: Anion Gap 11.9 (5-19)
[2020-08-16 05:52] LABS: Aspartate Amino Transferase 40 U/L (0-32); Potassium 3.9 mmol/L (3.5-5.1)
--- NOTE | 2020-08-16 07:00 | XRR_ITS ---
PROCEDURE INFORMATION: Exam: XR Chest, 2 Views Exam date and time: 08/16/2020 5:51 AM Age: 60 years old Clinical indication: Shortness of breath; Additional info: Hypoxia TECHNIQUE: Imaging protocol: XR of the chest Views: 2 views. COMPARISON: CR XR chest 1V portable [id number] 08/13/2020 2:40 PM FINDINGS: Lungs: Bilateral areas of infiltrate or atelectasis in the lower lungs with greatest involvement on the left. Findings are similar within the left lower lung and are similar or mildly improved in the right lower lung. Vessel or calcified granuloma left upper lobe. Pleural space: Pleural thickening or small bilateral pleural effusions similar on the left and has developed on the right. Heart/Mediastinum: Heart size is similar. Bones/joints: Chronic fracture deformity of the right 6th rib. Gastrointestinal tract: Few scattered minimal air-fluid levels in the upper abdomen. XR/XR chest 2V* [id number] IMPRESSION: Lower lung areas of infiltrate suspicion for pneumonia is similar on the left and is similar or mildly diminished on the right.
[2020-08-16] MEDS: pantoprazole DR 40 mg Tablet PO (09:28)
[2020-08-16] MEDS: allopurinol 300 mg Tablet PO (09:28)
[2020-08-16] MEDS: gabapentin 300 mg Capsule PO ×2 (09:28→11:42)
[2020-08-16] MEDS: folic acid 1 mg Tablet PO (09:29)
[2020-08-16] MEDS: atorvastatin 40 mg Tablet 20 MG PO (09:29)
[2020-08-16] MEDS: levothyroxine 50 mcg Tablet PO (09:29)
[2020-08-16] MEDS: metoprolol tartrate 50 mg Tablet PO ×2 (09:29→20:54)
[2020-08-16] MEDS: thiamine 100 mg Tablet PO (09:29)
--- NOTE | 2020-08-16 10:17 | P.PN_ITS ---
Subjective Subjective: Interval history: 60-year-old female with a past medical history significant for, hypertension, dyslipidemia, hypothyroidism, restless leg syndrome, fibromyalgia, degenerative arthritis and waldenstrom macroglobulinemia on Imbruvica with servere peripheral neuropathy who is presenting to ER with altered mental status. No family at bedside. patient was not able to provide much history of symptoms leading to ER visit. Per review of EMR patient was airlifted due to suspected stroke. Unclear duration of mental status change. Upon arrival to Er she was noted to have a temperature of 101, blood pressure 111/61, respiratory rate of 18 and heart rate of 95. She was arousable and followed commands however would fall back to sleep. No focal deficits were noted in route to ER or by ER physician. Laboratory workup on arrival showed a WBC of 10.5, hemoglobin of 10.7, hematocrit 32.8 and platelet count 148.. sodium 127, potassium 3.8, chloride 92, bicarb 27, BUN 13 and creatinine of 0.9. Lactic acid of 0.9. AST of 52, ALT of 36 and alkaline phosphatase is 65. urinalysis showed 2+ leukocyte esterase, 10 to 15 wbc's. chest x-ray showed interstitial and patchy alveolar infiltrate densities in the left lower lung. Patient was given Vancomycin 1g IV x 1 and Zosyn 3.375g IV x 1. No recent hospitalization noted. Follows with Dr. Rosario and Dr. Oliveira outpatient. Subjective Patient was alert and awake today. Mental status had significantly improved. No fever or chills. No nausea or vomiting. Respiratory status remained stable 08/15/20 No new clinical events overnight. No fever or chills. Mental status back to baseline. tolerating oral intake. 08/16 Tmax 101 yesterday am, Afebrile since, respiratory status stable. off o2 tolerating PO intake. Vitals/I&O/Wt Last Vital Signs Temp 98.4 F 08/16/20 16:00 Pulse 73 08/16/20 16:00 Resp 18 08/16/20 16:00 BP 136/89 08/16/20 16:00 Pulse Ox 95 08/16/20 04:00 08/16/20 08/16/20 08/16/20 06:59 14:59 22:59 Intake Total 1005 / 4155 50 / 50 Output Total 1000 / 1000 Balance 5 / 3155 50 / 50 Weight last 48 hrs Weight 55.61 kg Weight 57.243 kg Physical Exam Narrative: EXAM NARRATIVE: General: Alert, awake and oriented HEENT: Grossly unremarkable, on 0RA Chest : Non-labored respiration CVS: NSR ABD: Non-distended Ext : No edema Neuro: Grossly unremarkable Data : 08/16/20 04:28 08/16/20 04:28 Micro: Microbiology 08/14/20 01:20 Urine Culture - Final Urine Catheterized A&P Assessment and plan (1) Altered mental status: Status: Acute (2) Community acquired pneumonia: Status: Acute (3) Waldenstrom macroglobulinemia: Status: Acute (4) Peripheral neuropathy: Status: Chronic Qualifiers: Peripheral neuropathy type: polyneuropathy, unspecified Qualified Code(s): G62.9 - Polyneuropathy, unspecified (5) Hypertension: Status: Acute (6) Hyponatremia: Status: Acute (7) Hypothyroidism: Status: Acute (8) Anxiety: Status: Acute (9) Fibromyalgia: Status: Acute (10) Hyperlipidemia: Status: Acute Sepsis due to LLL pneumonia possible aspiration - Fever or 101, HR 95 on admission - Immunosuppressed - Zosyn 3.375g Q8hr ( anaerobic coverage ) - Vancomycin tai discontinue - 08/13 Blood culture x - NGTD - 08/13 Urine culture - No growth - Obtain sputum culture if possible - COVID-19 PCR ordered - negative - Droplet precautions - Tmax 101 - tylenol prn Acute hypoxic respiratory failure- Resolved - Currently on RA - Repeat Chest x-ray PRN - Wean as tolerated - Likely due to above Acute encephalopathy- Resolved - Likely infectious - CT head w/o contrast - negative. - Avoid benzo/sedatives. - Fall Precautions Hypovolemic Hyponatremia - Monitor off abx - Possible SIADH - Na improved 129 -133 - 137 - 133 Waldenstrom Macroglobulinemia - Following with Dr. Oliveira outpatient - Currently on Imbruvica ( not on formulary ) - Can take own home med Hypertension - Continue antihypertensives - BP improved Hypothyroidism - Synthroid 50 mcg PO daily Restless leg syndrome - Ropinirole 0.25 mg PO qhs Dyslipidemia - Lipitor 20 mg PO daily - LFT slightly elevated - Trend and hold if worsening Peripheral neuropathy - Gabapentin DVT ppx - Lovenox 40 mg SQ daily Dispostion If remains stable w/o any fever will plan to d/c in am Attestations Medical Necessity Statement*: Will require further hospitalization for IV abx. Time Spent in Patient Care: 16 - 35 minutes (>than 50% of time spent in counselling and/or direct pt care on unit) . Coding Level of Care Code Acute [employer] Point Pumping Supervisor for g Fwd Diagnoses Altered mental status R41.82 Community acquired pneumonia J18.9 Waldenstrom macroglobulinemia C88.0 Peripheral neuropathy G62.9 Peripheral neuropathy type: polyneuropathy, unspecified Hypertension I10 Hyponatremia E87.1 Hypothyroidism E03.9 Anxiety F41.9 Fibromyalgia M79.7 Hyperlipidemia E78.5
--- NOTE | 2020-08-16 10:46 | PC.SOCIAL ---
IMM Update Pg. 2 of IMM updated with patient. Copy provided.
[2020-08-16] MEDS: enoxaparin 40 mg/0.4 mL Syringe SUBCUT (17:54)
[2020-08-16] MEDS: gabapentin 300 mg Capsule 600 MG PO (20:53)
[2020-08-16] MEDS: ropinirole 0.25 mg Tablet PO (20:54)
[2020-08-16] MEDS: trazodone 50 mg Tablet 25 MG PO (20:54)
[2020-08-17] MEDS: piperacillin-tazobactam 3.375 GM in sodium chloride 0.9% (plus) 50 ML IV ×2 (00:59→08:00)
[2020-08-17 03:55] VITALS: BP 121/76; PULSE 79; RESP 18; TEMP 36.7; O2SAT 92
[2020-08-17 07:07] VITALS: BP 126/76; PULSE 80; RESP 18; TEMP 36.9; O2SAT 93
[2020-08-17 08:00] VITALS: BP 126/76; PULSE 80; RESP 18; TEMP 36.9
[2020-08-17] MEDS: levothyroxine 50 mcg Tablet PO (08:01)
[2020-08-17] MEDS: allopurinol 300 mg Tablet PO (08:01)
[2020-08-17] MEDS: folic acid 1 mg Tablet PO (08:01)
[2020-08-17] MEDS: gabapentin 300 mg Capsule PO (08:01)
[2020-08-17] MEDS: metoprolol tartrate 50 mg Tablet PO (08:01)
[2020-08-17] MEDS: pantoprazole DR 40 mg Tablet PO (08:01)
[2020-08-17] MEDS: thiamine 100 mg Tablet PO (08:01)
[2020-08-17] MEDS: atorvastatin 40 mg Tablet 20 MG PO (08:01)
[2020-08-17 11:11] VITALS: BP 135/77; PULSE 82; RESP 18; TEMP 36.7; O2SAT 96
--- NOTE | 2020-08-17 12:48 | P.DS_ITS ---
Discharge Providers Date of Admission: 08/13/20 15:30 Date of Discharge: August 17, 2020 Attending Provider at Admission: Asaf Arias Attending Provider at Discharge: Asaf Arias Primary Care Provider: Lucy Dean Diagnoses at Discharge Discharge Diagnosis (1) Altered mental status: Status: Resolved (2) Community acquired pneumonia: Status: Acute (3) Waldenstrom macroglobulinemia: Status: Acute (4) Peripheral neuropathy: Status: Chronic Qualifiers: Peripheral neuropathy type: polyneuropathy, unspecified Qualified Code(s): G62.9 - Polyneuropathy, unspecified (5) Hypertension: Status: Acute (6) Hyponatremia: Status: Resolved (7) Hypothyroidism: Status: Acute (8) Anxiety: Status: Acute (9) Fibromyalgia: Status: Acute (10) Hyperlipidemia: Status: Acute Reason for Visit Reason for Visit: WEAKNESS / CONFUSION Hospital Course Hospital Course 60-year-old female with a past medical history significant for, hypertension, dyslipidemia, hypothyroidism, restless leg syndrome, fibromyalgia, degenerative arthritis and waldenstrom macroglobulinemia on Imbruvica with servere peripheral neuropathy who is presenting to ER with altered mental status. No family at bedside. patient was not able to provide much history of symptoms leading to ER visit. Per review of EMR patient was airlifted due to suspected stroke. Unclear duration of mental status change. Upon arrival to Er she was noted to have a temperature of 101, blood pressure 111/61, respiratory rate of 18 and heart rate of 95. She was arousable and followed commands however would fall back to sleep. No focal deficits were noted in route to ER or by ER physician. Laboratory workup on arrival showed a WBC of 10.5, hemoglobin of 10.7, hematocrit 32.8 and platelet count 148.. sodium 127, potassium 3.8, chloride 92, bicarb 27, BUN 13 and creatinine of 0.9. Lactic acid of 0.9. AST of 52, ALT of 36 and alkaline phosphatase is 65. urinalysis showed 2+ leukocyte esterase, 10 to 15 wbc's. chest x-ray showed interstitial and patchy alveolar infiltrate densities in the left lower lung. Patient was given Vancomycin 1g IV x 1 and Zosyn 3.375g IV x 1. No recent hospitalization noted. Follows with Dr. Rosario and Dr. Oliveira outpatient. Upon admission patient was noted to have significant improvement with mental status returning to baseline. CT head was obtained and no acute findings were noted. No neurological deficits were noted. Started on IVF and HCTZ was discontinued after which sodium returned to normal. Initially placed on droplet precaution which were discontinued once COVID-19 PCR was found to be negative. Blood culture x 2 remained negative. Urine culture was also found to be negative. Antibiotics were de-escalated to zosyn only. Weaned off oxygen shortly after admission. Diet was advanced and tolerated. She was afebrile for over 48 hr prior to discharge. Abx were changed to Augmentin 875 mg PO BID to complete course. Advised to return to hospital if any recurrence of fever, chills or new symptoms. Physical Exam Narrative: EXAM NARRATIVE: General: Alert, awake and oriented HEENT: Grossly unremarkable, on 0RA Chest : Non-labored respiration CVS: NSR ABD: Non-distended Ext : No edema Neuro: Grossly unremarkable Discharge Data Data Completed and Pending: Completed Studies During Hospitalization Category Date Time Status CT head wo con* 7 0450 Routine Cat Scan 08/13/20 17:07 Completed XR chest 1V aysha ble [id number] Stat Exams 08/13/20 14:06 Completed XR chest 2V* 7104 6 Routine Exams 08/16/20 07:00 Completed Pending at discharge Category Date Time Status Blood Culture Sta t Lab 08/13/20 18:07 Results COVID [Coronaviru s Lab Test PTC] Ro utine Lab 08/13/20 16:31 Received Vitals: Last Vital Signs Temp 98.1 F 08/17/20 11:11 Pulse 82 08/17/20 11:11 Resp 18 08/17/20 11:11 BP 135/77 08/17/20 11:11 Pulse Ox 96 08/17/20 11:11 Discharge Plan Discharge Patient Disposition: Home Condition: Stable Prescriptions: New Augmentin 875-125 mg tablet 1 tab PO BID Qty: 14 RF: 0 Continued levothyroxine 50 mcg capsule 50 mcg PO DAILY RF: 0 folic acid 1 mg tablet 1 mg PO DAILY RF: 0 trazodone 50 mg tablet 25 mg PO DAILY RF: 0 pantoprazole 40 mg tablet,delayed release (DR/EC) 40 mg PO DAILY RF: 0 thiamine HCl (vitamin B1) 100 mg tablet 100 mg PO DAILY RF: 0 metoprolol tartrate 25 mg tablet See Rx Instructions .ROUTE .COMPLEX RF: 0 ferrous gluconate 236 mg (27 mg iron) tablet 236 mg PO DAILY RF: 0 loperamide 2 mg capsule 2 mg PO Q6H PRN (Reason: Diarrhea) RF: 0 docusate sodium [Stool Softener] 100 mg capsule 100 mg PO DAILY RF: 0 biotin 10,000 mcg capsule 500 mcg PO DAILY RF: 0 gabapentin 300 mg capsule 300 mg PO .COMPLEX Qty: 120 RF: 3 atorvastatin [Lipitor] 20 mg Tablet 20 mg PO DAILY RF: 0 prochlorperazine maleate 10 mg Tablet 10 mg PO Q4H PRN (Reason: Nausea) RF: 0 lorazepam 0.5 mg Tablet See Rx Instructions .ROUTE .COMPLEX RF: 0 ropinirole 0.25 mg Tablet See Rx Instructions .ROUTE .COMPLEX RF: 0 allopurinol 300 mg Tablet 300 mg PO DAILY RF: 0 Imbruvica 140 mg Tablet 420 mg PO DAILY RF: 0 multivitamin Tablet 1 tab PO DAILY RF: 0 cyclobenzaprine 10 mg Tablet See Rx Instructions .ROUTE .COMPLEX RF: 0 ascorbic acid (vitamin C) [Vitamin C] 500 mg Tablet 500 mg PO BID RF: 0 calcium carbonate-vitamin D3 [Calcium 500 + D] 500 mg(1,250mg) -200 unit Tablet See Rx Instructions .ROUTE .COMPLEX RF: 0 Discontinued hydrochlorothiazide 12.5 mg capsule 12.5 mg PO DAILY RF: 0 Discharge Orders: Discharge Order (Routine); Ordered 08/17/20 Ordered By: Asaf Arias Referrals: Lucy Dean PA [Primary Care Provider] - 08/20/20 3:15 pm Discharge Diet: Usual diet Discharge Activity: Resume usual activity Patient Instructions: Amoxicillin/Clavulanate Potassium (By mouth), Acute Delirium (DC), Community-acquired Pneumonia (DC), Peripheral Neuropathy (GEN), Altered Mental Status (GEN) Activity Restrictions/Additional Instructions: Return to hospital if any recurrence of fever, chills or worsening respiratory distress. Discharge Attestations Time Spent in Discharge Care*: greater than 30 min Specific Discharge Activities: educating patient, discussing with casework supervisor/social workers/dc planners, documenting/other paperwork and evaluating patient/reviewing data Status at Discharge: Cognitive status at discharge: cognitively intact , Behavioral status at discharge: cooperative , Functional status at discharge: independent ambulation Overall status at discharge: patient is back to baseline Quality Metrics Clinical Quality Measures During this hospital stay, did patient experience: None Coding Level of Care Code Acute Pattern Finisher for Chg Fwd Diagnoses Altered mental status R41.82 Community acquired pneumonia J18.9 Waldenstrom macroglobulinemia C88.0 Peripheral neuropathy G62.9 Peripheral neuropathy type: polyneuropathy, unspecified Hypertension I10 Hyponatremia E87.1 Hypothyroidism E03.9 Anxiety F41.9 Fibromyalgia M79.7 Hyperlipidemia E78.5
[2020-08-17 12:59] VITALS: BP 135/77; PULSE 82; RESP 18; TEMP 36.7; O2SAT 96
[2020-08-17 14:06] LABS: Coronavirus Lab Test PTC Negative
== END 2020-08-17 12:15 | disposition home or self-care (01) | DRG 194 ==
LOC: ER 15:38 → CSU 16:45 → ICU 19:52 → MEDSURG 08-15 19:53
PROVIDERS: Admitting Provider Hospitalist; Emergency Provider Student in an Organized Health Care Education/Training Program; PCP Physician Assistant; Visit Provider Hospitalist
DX: J18.9 Pneumonia, unspecified organism (principal); G93.40 Encephalopathy, unspecified; E87.1 Hypo-osmolality and hyponatremia; I10 Essential (primary) hypertension; E78.5 Hyperlipidemia, unspecified; E03.9 Hypothyroidism, unspecified; G25.81 Restless legs syndrome; M79.7 Fibromyalgia; M19.90 Unspecified osteoarthritis, unspecified site; C88.0 Waldenstrom macroglobulinemia; Z79.899 Other long term (current) drug therapy; G62.9 Polyneuropathy, unspecified; F41.9 Anxiety disorder, unspecified; Z87.891 Personal history of nicotine dependence
CPT/HCPCS: 12345; 36415; 70450; 71045; 71046; 77067; 80053; 81001; 83605; 84145; 85025; 87040; 87086; 87426; 87635; 93005; 96372; 97161; 97530; 99283; J0131; J1650; J2543; J3370; J7030; J7050

== ENCOUNTER 2020-09-21 11:13 | Outpatient (CLI) | payer MEDICARE, MEDICAID, SELFPAY ==
[2020-09-21 11:55] LABS: Basophils # 0.1 10^3/uL (0.0-0.1); Basophils % 1.3 %; Eosinophils # 0.1 10^3/uL (0.0-0.8); Hematocrit 34.7 % (37.0-47.0); Hemoglobin 11.6 g/dL (11.5-15.3); Lymphocytes # 2.3 10^3/uL (0.8-4.8); Lymphocytes % 38.3 %; Mean Corpuscular HGB Conc 33.4 g/dL (30.0-36.0); Mean Corpuscular Hemoglobin 30.4 pg (28.0-34.0); Mean Corpuscular Volume 90.8 fL (81-99); Mean Platelet Volume 11.9 fL (7.4-10.4); Monocytes % 16.4 %; Neutrophils # 2.61 10^3/uL (1.8-7.7); Neutrophils % 42.8 %; Nucleated Red Blood Cells % 0 %; Platelet Count 159 10^3/cmm (130-400); Red Blood Count 3.82 10^6/uL (4.1-5.3); Red Cell Distribution Width 13.7 % (12.1-15.1); White Blood Count 6.1 10^3/uL (4.0-10.0)
[2020-09-21 13:54] LABS: Alanine Aminotransferase 38 U/L (0-33); Alkaline Phosphatase 59 IU/L (35-105); Anion Gap 14.1 (5-19); Aspartate Amino Transferase 61 U/L (0-32); Blood Urea Nitrogen 15 mg/dL (6-20); Calcium 10.4 mg/dL (8.5-10.5); Carbon Dioxide 31 mmol/L (22-29); Chloride 90 mmol/L (98-107); Globulin 2.7 g/dL (1.3-4.6); Glomerular Filtration Rate 73.4 mL/min (90-130); Glucose 91 mg/dL (65-115); Immunoglobulin IGA 104 mg/dL (70-400); Immunoglobulin IGG 804 mg/dL (700-1600); Immunoglobulin IGM 554 mg/dL (40-230); Lactate Dehydrogenase 216 U/L (135-214); Osmolality Calculated 272 mOsm/kg (285-295); Potassium 4.1 mmol/L (3.5-5.1); Sodium 131 mmol/L (136-145); Total Bilirubin 1.1 mg/dL (0.15-1.2); Total Protein 6.7 g/dL (6.6-8.7)
--- NOTE | 2020-09-21 14:13 | MR_ITS ---
WS: [id number] MRI BRAIN WITH AND WITHOUT CONTRAST HISTORY: VISION Changes; slurred Speech; off BALANCE COMPARISON: CT head 08/13/2020 TECHNIQUE: Multiplanar imaging performed through the brain with Prohance 11 ml's IV. No acute infarcts are seen. Joshi-white matter differentiation is well preserved. There are a few scat tered T2 and FLAIR signal hyperintensities. These are predominantly in the subcortical distribution i nvolving the frontal, parietal and temporal lobes. No large territory infarct. No hemorrhage. No susceptibility artifacts or prior lacunar infarcts. Ventricles and extra-axial spaces are normal. Clivus and pituitary gland are normal. Visualized posterior fossa and brainstem are also normal. Postcontrast images are negative for masses or vascular malformations. Dural venous sinuses are normal. Paranasal sinuses: Well aerated with no significant disease. Mastoid air cells: Normal. Calvarium and scalp: Normal. MR/MR head wo/w con [id number] IMPRESSION: 1. No evidence for an intracranial mass or leptomeningeal enhancement. 2. No acute infarct or hemorrhage. 3. Mild chronic microvascular ischemic disease.
[2020-09-22 08:42] LABS: PROTEIN, TOTAL 6.2 g/dL (6.1-8.1)
[2020-09-22 11:47] LABS: ABNORMAL PROTEIN BAND 1 0.5 g/dL (NONE DETECTED); ALBUMIN 3.7 g/dL (3.8-4.8); ALPHA 1 GLOBULIN 0.3 g/dL (0.2-0.3); ALPHA 2 GLOBULIN 0.6 g/dL (0.5-0.9); BETA 1 GLOBULIN 0.4 g/dL (0.4-0.6); BETA 2 GLOBULIN 0.3 g/dL (0.2-0.5)
--- NOTE | 2020-09-22 23:12 | ONC FU_ITS ---
[facility] Patient Note Patient: Yulisa Kinney Unit #: [id number]: 1960 Dictated By: Rosetta VictoriaDate of Visit: Sep 21, 2020 Onc MED Follow-Up/Prog Note Chief Complaint: Waldenstrom's macroglobulinemia. History of Present Illness: Ms Kinney is a 60 year-old woman with Waldenstrom macroglobulinemia, presenting with lymphocytosis, anemia, and splenomegaly in association with IgM monoclonal gammopathy. She had been seeing Dr. Jasso in neurology for peripheral neuropathy symptoms. She had been diagnosed with bilateral carpal tunnel syndrome and lumbar radiculopathy. On 09/26/2019 she had a follow-up outpatient visit with Lucy Dean. Her laboratory studies included CBC showing hemoglobin 9.7 g and hematocrit 31.5%. The red cell indices were normal. The white blood cell count was elevated 14,900 with the differential showing 23% granulocytes, 68% lymphocytes, and 7% monocytes. The platelet count was normal at 165,000. Comprehensive metabolic profile showed borderline renal function with BUN 15 and creatinine 1.1 mg/dL. The albumin was normal at 4.2 g/dL with calculated serum globulin elevated at 4.4 g/dL. The liver enzymes were normal. Sed rate and CRP levels were normal. TSH was borderline at 4.74 ???IUl/mL. B12 was normal at 568 pg/mL. Folate was greater than 24.0 ng/mL. The serum iron studies showed slightly low transferrin saturation at 18%. Ferritin was normal at 65 ng/mL. Protein electrophoresis showed a monoclonal protein band quantitating at 1.2 g/dL. Immunofixation showed IgM lambda. Dr Solorzano had seen her initially on 10/31/2019. She was noted to have a palpable spleen, but there was no peripheral lymphadenopathy noted. Her repeat CBC showed hemoglobin 9.9 g, white blood cell count 17,000, and platelet count 124,000. The differential showed 70% lymphocytes, 18% neutrophils, 8% monocytes, and 1% eosinophils. Comprehensive metabolic profile was unremarkable except for slightly elevated SGOT at 46/32 U/L. LDH was just slightly elevated at 231/214 U/L. Protein electrophoresis showed an M band quantitating at 1.1 g/dL. The quantitative immunoglobulins included IgG elevated at 1464/230 mg/dL, IgG normal at 1129 mg/dL, and IgA normal at 113 mg/dL. The free light chain assay showed elevated lambda light chain at 53.3 mg/L, kappa light chain 33.8 mg/L and kappa/lambda ratio within the normal range at 0.63. A whole blood flow cytometry on 11/06/2019 showed on monotypic B-cell population which was positive for CD19, CD20, and CD22. There was dim/partial positivity to FMC7 and CD25. A subset showed surface lambda light chain restriction, but the remaining population appeared to be light chain negative. The monotypic B cells were negative for CD5, CD10, CD23, CD11c, CD103, CD123, CD200, CD38, and CD34. The phenotype was felt to be nonspecific. Staging CT scans of the chest, abdomen, and pelvis on 11/14/2019 showed prominent left axillary lymph nodes, the largest measuring 10 mm, an enlarged celiac axis lymph node measuring 11.5 mm, a prominent left periaortic lymph node measuring 7 mm, and prominent inguinal lymph nodes measuring up to 10 mm. The spleen was enlarged measuring 13.1 cm. The right hepatic lobe was noted to be enlarged, but the liver otherwise appeared normal. She underwent bone marrow aspiration/biopsy on 12/05/2019. The interpretation was limited due to the bone marrow aspirate specimens having been hemodiluted without cellular spicules. Bone marrow was noted to be hypercellular on the biopsy specimen, averaging 60 to 90% cellularity. An extensive interstitial and diffuse lymphoid infiltrate was noted to involve a high proportion of the marrow space, estimated at 70 to 80%. The lymphoid cells were noted to be small and round with clumped nuclear chromatin. There was evidence of plasmacytic differentiation. The flow cytometry showed nonspecific phenotype, similar to the whole blood specimen. Iron stores were noted to be reduced, but not absent. Overall, the findings were not definitive, but they were suggestive of lymphoplasmacytic lymphoma. The MYD88 mutation was detected, consistent with Waldenstrom macroglobulinemia. Her other medical illnesses includehypertension, hyperlipidemia, fibromyalgia, and degenerative arthritis/degenerative disease of the spine. She has had multiple surgeries on both the cervical and lumbar spine. She reportedly was found to be positive for the Factor V Leiden mutation. She has history of smoking for 30 years, up to 2 packs of cigarettes daily. She quit smoking in 2006. INTERIM HISTORY: On 01/13/2020 she began a course of treatment with rituximab in combination with ibrutinib 420 mg daily. She completed the initial 4 weekly infusions of rituximab with no adverse effects. She then continued the ibrutinib at 420 mg daily. As of her follow-up visit on 03/04/2020 there had been a significant decline in her M protein, to 0.7 g/dL, and there also was significant improvement in the splenomegaly. There was not a significant change in her clinical status. She then continued ibrutinib 420 mg daily, which she tolerated well. As of her follow-up visit on 05/04/2020 her repeat protein electrophoresis showed residual M protein quantitating at 0.7 g/dL. She then began her second course of rituximab administered weekly for 4 weeks. She completed her week 4 treatment on 05/25/2020. She continues on the ibrutinib 420 mg daily. Mrs. Kinney is here today for follow-up. She presents with multiple complaints. She states for the last 2 weeks she has been having left-sided weakness that is worse than the right. She states that she is also having trouble drinking from a bottle because it makes me aspirate . She states she just had trouble swallowing in general. She has also had some vision blurriness that just started over the last 2-3 weeks. She reports that her right eye has been bloodshot for about 2 weeks and is not getting better. She states it duenas if she rubs it or touches it. She states that had been draining some yellow pus but that has not happened the last couple of days.elevated blood pressure. She has not seem an eye doctor for this concern. She states that she has been concerned that she is been having a stroke due to the one-sided weakness and that she wakes up disoriented and cannot remember words or how to use them sometimes. She states though that she does have what she would call almost like a headache but not really headache . She states is just dullness and she states it is kind of all over her head. She states her has told her that her speech is slurred at times as well. She states she is just not doing well overall . She states she sees Dr. Rosario tomorrow afternoon and is anxious for this appointment to see if we can figure out what is going on . She states that her speech has been slurred although it is clear in the clinic today. She did present to the emergency room on 08/13/2020 for altered mental status/weakness and confusion. She was also found to be hypotensive. Her EKG done in the ER reported normal sinus rhythm with a rate of [address] elevation or depression. She did have a white count of 10.5 and was admitted with pneumonia. She did have a noncontrast head CT for the altered mental status/memory loss and weakness. It reported as no acute intracranial abnormality . Her chest x-ray during admission on 08/16/2020 reported lower lung areas of infiltrate suspicion for pneumonia. She was treated with antibiotics and discharged. She states that her she is just not felt to the same since. She denies any nausea or vomiting. She denies any diarrhea or constipation. Her ECOG is 1. Past Medical History: Cervical spinal stenosis Degenerative arthritis Degenerative disease of the spine Factor V Leiden mutation Fibromyalgia Hyperlipidemia Hypertension Past Surgical History: Bunionectomy on the right foot Cervical spine surgery x 4 section x 2 EGD and colonoscopy Facial surgery x 3 Lumbar spine surgery x 2 Multiple oral surgeries Rotator cuff repair x 2 Surgery for dislocated left hip Allergies: Cortisone Acetate, Demerol, Dilaudid, Haldol, and Morphine Sulfate. Medications: Allopurinol 1 Tablet (of 300 mg) Oral daily Atorvastatin Calcium 1 Tablet (of 20 mg) Oral at bedtime B-1 1 Tablet (of 100 mg) Oral daily Calcium Citrate + D 1 Tablet (of 315-200 mg - Units) Oral b.i.d. Cyclobenzaprine HCl 1 - 2 Tablet (of 10 mg) Oral b.i.d. Ferrous Sulfate 1 Tablet (of 325 (65 fe) mg) Oral daily Folic Acid 1 Tablet (of 1 mg) Oral daily Imbruvica 3 Capsule (of 140 mg) Oral daily Imodium A-D 1 Capsule (of 2 mg) Oral daily Levothyroxine Sodium 1 Tablet (of 50 mcg) Oral daily LORazepam 1 - 2 Tablet (of 0.5 mg) Oral t.i.d. Metoprolol Tartrate (25 mg) Tablet Oral Take as Directed Multivitamin Adult 1 Tablet Oral daily Pantoprazole Sodium 1 Tablet (of 40 mg) Tablet, enteric coated Oral daily Prochlorperazine Maleate 1 Tablet (of 10 mg) Oral q 4 hours PRN rOPINIRole HCl 2 Tablet (of 0.25 mg) Oral at bedtime Stool Softener 1 Tablet (of 100 mg) Oral daily traZODone HCl 0.5 - 1 Tablet (of 50 mg) Oral at bedtime Vitamin C 1 Capsule (of 500 mg) Oral daily Family History: Ms. Kinney's mother at age 71: emphysema. Ms. Kinney's father at age 70: congestive heart failure, and hypertension, and myocardial infarction, and type II diabetes. Ms. Kinney has 1 brother who is alive: coronary artery disease. She has 2 sisters: 1 alive, 1 . Ms. Kinney's first sister's septic shock. Father had diabetes, coronary artery disease, and chronic kidney disease. He at age 70. Her mother had COPD and history of strokes. She at age 71. A sister with septic shock. Another sister is in good health. She has 1 brother who has coronary disease. Her daughter was found to have factor V Leiden mutation in the course of her evaluation following a stillbirth. Social History: Ms. Kinney is and she is a disabled. Ms. Kinney quit smoking 13 years ago but had smoked 2.0 packs/day for 30 years. She drinks occasionally. Ms. Kinney reports the following support systems: lives with spouse, significant other, family, or friends, lives in own house, supportive family/friends willing to assist with needs, and transportation problems exist and will require assistance. Her diet consists of regular meals. She indicates her activity level as: light exercise. She has a history of smoking for 30 years up to 2 packs of cigarettes daily. She quit smoking in 2006. She has just occasional alcohol use. Review Of Symptoms: Constitutional Denies fevers, chills, night sweats,. Eyes Denies significant visual changes. No diplopia. No amaurosis. right eye is blood shot for over 1 week now. ENMT She states she is having trouble drinking from a bottle as she is aspirating . She states she has had some trouble swallowing which is new over the last 2 weeks. She states she has had slurred speech. Hematologic/Lymphatic Denies easy bruising or bleeding. The patient denies any tender or palpable lymph nodes. Respiratory Denies dyspnea on exertion, chest pain, cough or hemoptysis. Denies orthopnea. Cardiovascular Denies anginal chest pain, palpitations or orthopnea. Gastrointestinal Denies nausea, vomiting, diarrhea, GI bleeding, or constipation. Denies change in bowel habits and/or stool color, no heartburn or early satiety. Genitourinary (F) No hematuria, hesitancy, incontinence, vaginal bleeding, discharge or other problems with urination. Musculoskeletal Denies joint pain, swelling or redness. No decreased range of motion. Integumentary Denies chronic rashes, inflammation, ulcerations or skin changes. Neurologic She states that she has had some left-sided weakness worse on the right. She also states that she has had some head discomfort but would really not describe it as a headache. She is concerned that she feels weaker overall and feels that her speech has been slurred at times. She states that this is been going on for 2 weeks. She is due to see Dr. Rosario tomorrow. She states she has periods where she wakes up disoriented as well. She states after a few minutes she does recall where she is at. Psychiatric Denies depression, keshawn or mood swings. Vital Signs: Performed on Sep 21, 2020 13:13 Height - 59.00 in Weight - 114.2 lbs (HIGH) BSA - 1.45 sq.m BMI - 23.07 Temperature - 98.1 F (LOW) Pulse - 94 /min Respiration - 18 /min BP - 165/92 mm(hg) (HIGH) O2 Sat - 94 % (LOW) Pain - 5,1 - No physically strenuous activity, but ambulatory and able to carry out light or sedentary work (e.g. office work, light house work). (ECOG) Physical Examination: Constitutional Alert, oriented, no acute distress. Skin pink, warm and dry. Eyes Conjunctivae and sclerae are clear and without icterus on the left. The right eye is noted to have what appears to be a broken blood vessel in the lower half of her eye. There is no active drainage or odor. Neck Supple without masses or thyromegaly. No jugular venous distension. Hematologic/Lymphatic No petechiae or purpura. No tender or palpable lymph nodes in the cervical or supraclavicular areas. Respiratory Lungs are clear to auscultation without rhonchi or wheezing. Cardiovascular Regular rate and rhythm of heart without murmurs,clicks, gallops or rubs. Abdomen Non-tender, non-distended, no masses or ascites. Good bowel sounds noted in all quads. No guarding or rebound tenderness. No pulsatile masses. Back/Spine Non-tender to palpation. Area of spine abnormality on cervical spine that appears to be potential bone protrusion but not breaking the skin. She is following with neurology amd neurosurgery for this. Extremities No visible deformities, no cyanosis, clubbing or edema. Musculoskeletal No tenderness or swelling, normal range of motion without obvious weakness. Integumentary No rashes or lesions. Neurologic Her speech is normally slow and somewhat disorganized at times but this is no different than her previous visits. It may slur more than her last visit, but for the most part, it is close to her baseline. I do not note any particular one-sided weakness. I do not see any facial droop. Her speech is clear and I did not note any slurring. Psychiatric Alert and oriented times three. Coherent speech. Verbalizes understanding of our discussions today. Laboratory:Test performed on Sep 21, 2020 11:39 LDH (Total) 216 U/L Sodium 131 mmol/L Potassium 4.1 mmol/L Chloride 90 mmol/L CO2 31 mmol/L Anion Gap 14.1 BUN 15 mg/dL Creatinine 0.8 mg/dL Cr Clearance (Est) 62.7900 mL/min eGFR 73.4 mL/min Glucose 91 mg/dL Osmolality - Calculated 272 mOsm/kg Calcium 10.4 mg/dL Protein, Total 6.7 g/dL Albumin 4.0 g/dL Globulin 2.7 g/dL Bilirubin, Total 1.1 mg/dL ALT (SGPT) 38 U/L AST (SGOT) 61 U/L Alkaline Phosphatase 59 IU/L WBC 6.1 10 3/uL RBC 3.82 10 6/uL HGB 11.6 g/dL HCT 34.7 % MCV 90.8 fL MCH 30.4 pg MCHC 33.4 g/dL RDW 13.7 % Platelet Count 159 10 3/cmm MPV 11.9 fL Neutrophils 2.61 10 3/uL Lymphocytes 2.3 10 3/uL Monocytes 1.0 10 3/uL Eosinophils 0.1 10 3/uL Basophils 0.1 10 3/uL Neutrophil % 42.8 % Lymphocyte % 38.3 % Monocyte % 16.4 % Eosinophil % 1.0 % Basophils % 1.3 % NRBC % 0 % IgG 804 mg/dL IgA 104 mg/dL IgM 554 mg/dL Impression: 1. Patient with lymphoproliferative disorder with associated IgM monoclonal gammopathy. 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 The MYD88 mutation was detected, consistent with Waldenstr???m macroglobulinemia. 2. She has significant peripheral neuropathy, which I suspect is related. Her other medical illnesses include: 3. Hypertension. 4. Hyperlipidemia. 5. Fibromyalgia. 6. Degenerative arthritis and degenerative disease of the spine. She has associated cervical spinal canal stenosis. 7. She was reportedly found to be positive for the Factor V Leiden mutation. On 01/13/2020 she began a course of treatment with rituximab in combination with ibrutinib 420 mg daily. She completed 4 weekly infusions of rituximab and she then continued the ibrutinib at 420 mg daily. During treatment there was some decline in her renal function, but that subsequently resolved. She was then able to continue the ibrutinib at 420 mg daily wtih no adverse effects. She had evidence of very good objective response with improvement in the splenomegaly and the anemia and with a significant decrease in her M protein. There was no significant change, though, and her clinical status. As of her follow-up visit on 05/04/2020 her repeat protein letter pheresis showed residual M protein quantitating at 0.7 g/dL. At that point she began a second course of rituximab, administered weekly for 4 weeks. She completed this t treatment on 05/25/2020. She tolerated it well. During this time she also has continued ibrutinib 420 mg daily. Her overall clinical status appears stable in regards to the macroglobulinemia. Plan: PROBLEMS ADDRESSED TODAY 1. Waldenstrom's macroglobulinemia: A. She is currently on ibrutinib 4 and 20 mg daily. I have asked her to hold this for at least a week given her complaints of vision changes, increased weakness with left side being greater than right side; trouble swallowing and just generalized deconditioning. B. Today's labs were reviewed in detail and discussed with Mrs. Kinney and a copy was given to her. WBC 6.1, hemoglobin 11.6, platelets 159,000 ANC is 2610. Her chemistry, SPEP and QUIGS were pending at visit. 2. Complaints of trouble swallowing, increased left-sided weakness greater than right, weakness and generalized confusion A. I requested MRI with and without contrast of the brain given her complaints of one-sided weakness greater than the other,, vision changes, slurred speech and memory loss. B. She does follow with neurology tomorrow at 330. 3. Hypertension: A. Blood pressure is 165/92 today. She has brought records with her indicating that her blood pressure has been running anywhere from 94-1 04's diastolic. B. Her heart rate is also noted to be averaging about 104. C. She is currently on metopropol at 25 mg a.m. and 50 mg p.m. D. I have recommended she increase her metoprolol to 50 mg twice daily for her elevated blood pressure and her heart rate of 104. She does have a significant history of coronary artery disease by her report. 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 We discussed that we need to proceed with work-up as deferred try to figure out why she is having memory loss/confusion/one-sided weakness and difficulty swallowing. She certainly may need cardiac referral in the future for evaluation of her orthopnea at times and hypertension due to her significant family history. She does not report any exertional dyspnea or any chest pain at this time. 4. Dysphagia: A. If her neurology evaluation and pending MRI do not offer some explanation for her dysphagia, she will likely need barium swallow for further evaluation. I did not see any abnormal findings on my exam for her today. 5. Routine health monitoring A. Bilateral screening digital mammography with CAD obtained on 08/12/2020 and is reported as BI-RADS 1???negative recommend follow-up in 1 year. 6. We will plan to see her back in 4-6 weeks with CBC CMP LDH, SPEP with MIGUELITO and QUIGS for followup of the Waldenstr???m macroglobulinemia. Signed By: Rosetta Victoria-, AOP Robin Solorzano MD <<Signature on File>>
== END 2020-09-21 11:14 | disposition home or self-care (01) ==
LOC: ONCMED 11:19
PROVIDERS: PCP Physician Assistant; Visit Provider Nurse Practitioner
DX: C88.0 Waldenstrom macroglobulinemia (principal); D72.820 Lymphocytosis (symptomatic); D47.2 Monoclonal gammopathy; D68.51 Activated protein C resistance; H53.9 Unspecified visual disturbance; R47.81 Slurred speech; G62.9 Polyneuropathy, unspecified; I10 Essential (primary) hypertension; E78.5 Hyperlipidemia, unspecified; M79.7 Fibromyalgia; M50.30 Other cervical disc degeneration, unspecified cervical region; M48.02 Spinal stenosis, cervical region; Z79.899 Other long term (current) drug therapy
CPT/HCPCS: 36415; 70553; 80053; 82784; 83615; 84155; 84165; 85025; 99215; A9579

== ENCOUNTER → 2020-09-22 14:41 | Outpatient (BNVA) | payer MEDICARE, MEDICAID, SELFPAY | PROVIDERS: PCP Physician Assistant; Visit Provider Specialist | DX: C88.0 Waldenstrom macroglobulinemia (principal); G62.9 Polyneuropathy, unspecified; G47.10 Hypersomnia, unspecified; G92 Toxic encephalopathy; J18.9 Pneumonia, unspecified organism; Z87.891 Personal history of nicotine dependence | CPT/HCPCS: 99215 ==

== ENCOUNTER 2020-10-02 10:20 | Outpatient (CLI) | payer MEDICARE, MEDICAID, SELFPAY ==
--- NOTE | 2020-10-02 10:30 | XR_ITS ---
WS: [id number] Exam: XR chest 2V* [id number] Date/Time of Exam: 10/02/2020 10:40 AM Reason For Exam: FOLLOW UP PNEUMONIA Comparison 08/16/2020. The lungs are hyperinflated. No acute infiltrates are seen. Chronic areas of plaque atelectasis in th e lung bases. Cardiomediastinal structures are unremarkable. No pleural effusions. Hardware partially visualized in the lower cervical spine. Regional bony structures are intact. XR/XR chest 2V* [id number] IMPRESSION: 1. Pulmonary hyperinflation. No acute finding.
== END 2020-10-02 10:21 | disposition home or self-care (01) ==
LOC: RAD 10:25
PROVIDERS: PCP Physician Assistant; Visit Provider Nurse Practitioner
DX: J18.9 Pneumonia, unspecified organism (principal)
CPT/HCPCS: 71046

== ENCOUNTER 2020-10-27 07:44 | Outpatient (CLI) | payer MEDICARE, MEDICAID, SELFPAY ==
[2020-10-27 08:54] LABS: Basophils # 0.1 10^3/uL (0.0-0.1); Basophils % 1.6 %; Eosinophils # 0.1 10^3/uL (0.0-0.8); Hematocrit 36.4 % (37.0-47.0); Hemoglobin 12.1 g/dL (11.5-15.3); Lymphocytes # 1.1 10^3/uL (0.8-4.8); Lymphocytes % 15.3 %; Mean Corpuscular HGB Conc 33.2 g/dL (30.0-36.0); Mean Corpuscular Hemoglobin 30.2 pg (28.0-34.0); Mean Corpuscular Volume 90.8 fL (81-99); Mean Platelet Volume 10.7 fL (7.4-10.4); Monocytes # 1.2 10^3/uL (0.2-0.9); Monocytes % 17.5 %; Neutrophils # 4.34 10^3/uL (1.8-7.7); Neutrophils % 63.3 %; Nucleated Red Blood Cells % 0 %; Platelet Count 294 10^3/cmm (130-400); Red Blood Count 4.01 10^6/uL (4.1-5.3); White Blood Count 6.9 10^3/uL (4.0-10.0)
[2020-10-27 09:12] LABS: Alanine Aminotransferase 28 U/L (0-33); Albumin Level 4.2 g/dL (3.5-5.2); Alkaline Phosphatase 75 IU/L (35-105); Anion Gap 12.7 (5-19); Aspartate Amino Transferase 51 U/L (0-32); Blood Urea Nitrogen 8 mg/dL (6-20); Calcium 9.7 mg/dL (8.5-10.5); Carbon Dioxide 29 mmol/L (22-29); Chloride 93 mmol/L (98-107); Glomerular Filtration Rate 102.3 mL/min (90-130); Glucose 100 mg/dL (65-115); Lactate Dehydrogenase 217 U/L (135-214); Osmolality Calculated 270 mOsm/kg (285-295); Potassium 3.7 mmol/L (3.5-5.1); Sodium 131 mmol/L (136-145); Total Bilirubin 0.7 mg/dL (0.15-1.2); Total Protein 7.2 g/dL (6.6-8.7)
[2020-10-27 10:44] LABS: Add Urine Microscopic? NO
[2020-10-27 11:11] LABS: Urine Appearance Clear (CLEAR); Urine Color Straw (Yellow); pH Urine 7 (5-7)
[2020-10-27 11:12] LABS: Bilirubin Urine Neg (Negative); Blood Urine Neg (Negative); Glucose Urine UA Norm (Normal); Ketones Urine Negative (Negative); Leukocyte Esterase Urine Negative (Negative); Nitrate Urine Negative (Negative); Protein Urine Neg (Negative); Specific Gravity, Urine 1.005 (1.005-1.030); Urobilinogen Urine Norm (Negative)
--- NOTE | 2020-10-27 11:47 | ONC FU_ITS ---
Dr. Solorzano Patient Follow-Up Note Patient: Yulisa Kinney Unit #: [id number]: 1960 Dicatated By: Robin Solorzano M.D.Date of Visit:Oct 27, 2020 Onc Med Follow-up/Prog Note Chief Complaint: Waldenstrom macroglobulinemia. History of Present Illness: This is a 59 year-old woman with Waldenstrom macroglobulinemia, presenting with lymphocytosis, anemia, and splenomegly in association with IgM monoclonal gammopathy. She had been seeing Dr. Jasso in neurology for peripheral neuropathy symptoms. She had been diagnosed with bilateral carpal tunnel syndrome and lumbar radiculopathy. On 09/26/2019 she had a follow-up outpatient visit with Lucy Dean. Her laboratory studies included CBC showing hemoglobin 9.7 g and hematocrit 31.5%. The red cell indices were normal. The white blood cell count was elevated 14,900 with the differential showing 23% granulocytes, 68% lymphocytes, and 7% monocytes. The platelet count was normal at 165,000. Comprehensive metabolic profile showed borderline renal function with BUN 15 and creatinine 1.1 mg/dL. The albumin was normal at 4.2 g/dL with calculated serum globulin elevated at 4.4 g/dL. The liver enzymes were normal. Sed rate and CRP levels were normal. TSH was borderline at 4.74 ???IUl/mL. B12 was normal at 568 pg/mL. Folate was greater than 24.0 ng/mL. The serum iron studies showed slightly low transferrin saturation at 18%. Ferritin was normal at 65 ng/mL. Protein electrophoresis showed a monoclonal protein band quantitating at 1.2 g/dL. Immunofixation showed IgM lambda. I had seen her initially on 10/31/2019. She was noted to have a palpable spleen, but there was no peripheral lymphadenopathy noted. Her repeat CBC showed hemoglobin 9.9 g, white blood cell count 17,000, and platelet count 124,000. The differential showed 70% lymphocytes, 18% neutrophils, 8% monocytes, and 1% eosinophils. Comprehensive metabolic profile was unremarkable except for slightly elevated SGOT at 46/32 U/L. LDH was just slightly elevated at 231/214 U/L. Protein electrophoresis showed an M band quantitating at 1.1 g/dL. The quantitative immunoglobulins included IgG elevated at 1464/230 mg/dL, IgG normal at 1129 mg/dL, and IgA normal at 113 mg/dL. The free light chain assay showed elevated lambda light chain at 53.3 mg/L, kappa light chain 33.8 mg/L and kappa/lambda ratio within the normal range at 0.63. A whole blood flow cytometry on 11/06/2019 showed on monotypic B-cell population which was positive for CD19, CD20, and CD22. There was dim/partial positivity to FMC7 and CD25. A subset showed surface lambda light chain restriction, but the remaining population appeared to be light chain negative. The monotypic B cells were negative for CD5, CD10, CD23, CD11c, CD103, CD123, CD200, CD38, and CD34. The phenotype was felt to be nonspecific. Staging CT scans of the chest, abdomen, and pelvis on 11/14/2019 showed prominent left axillary lymph nodes, the largest measuring 10 mm, an enlarged celiac axis lymph node measuring 11.5 mm, a prominent left periaortic lymph node measuring 7 mm, and prominent inguinal lymph nodes measuring up to 10 mm. The spleen was enlarged measuring 13.1 cm. The right hepatic lobe was noted to be enlarged, but the liver otherwise appeared normal. She underwent bone marrow aspiration/biopsy on 12/05/2019. The interpretation was limited due to the bone marrow aspirate specimens having been hemodiluted without cellular spicules. Bone marrow was noted to be hypercellular on the biopsy specimen, averaging 60 to 90% cellularity. An extensive interstitial and diffuse lymphoid infiltrate was noted to involve a high proportion of the marrow space, estimated at 70 to 80%. The lymphoid cells were noted to be small and round with clumped nuclear chromatin. There was evidence of plasmacytic differentiation. The flow cytometry showed nonspecific phenotype, similar to the whole blood specimen. Iron stores were noted to be reduced, but not absent. Overall, the findings were not definitive, but they were suggestive of lymphoplasmacytic lymphoma. The MYD88 mutation was detected, consistent with Waldenstrom macroglobulinemia. Her other medical illnesses includehypertension, hyperlipidemia, fibromyalgia, and degenerative arthritis/degenerative disease of the spine. She has had multiple surgeries on both the cervical and lumbar spine. She reportedly was found to be positive for the Factor V Leiden mutation. She has history of smoking for 30 years, up to 2 packs of cigarettes daily. She quit smoking in 2006. INTERIM HISTORY: On 01/13/2020 she began a course of treatment with rituximab in combination with ibrutinib 420 mg daily. She completed the initial 4 weekly infusions of rituximab with no adverse effects. She then continued the ibrutinib at 420 mg daily. As of her follow-up visit on 03/04/2020 there had been a significant decline in her M protein, to 0.7 g/dL, and there also was significant improvement in the splenomegaly. There was not a significant change in her clinical status. She then continued ibrutinib 420 mg daily, which she tolerated well. As of her follow-up visit on 05/04/2020 her repeat protein electrophoresis showed residual M protein quantitating at 0.7 g/dL. She began her second course of rituximab administered weekly for 4 weeks. She completed her week 4 treatment on 05/25/2020. She tolerated it very well, and she then continued her treatment with ibrutinib 420 mg daily. On 08/13/2020 she was admitted to the hospital with pneumonia, having presented to the emergency room with mental status changes. She improved clinically on antibiotic therapy. She was discharged home on 08/17/2020. At that point she had adequate oxygen saturation on room air. However, on outpatient follow-up with Lucy Dean she apparently was found to be significantly hypoxic, and she was then started on home oxygen. At her follow-up visit on 09/24/2020 her ibrutinib was temporarily put on hold due to visual changes. Ultimately these were felt to be more likely due to gabapentin. Her ibrutinib was supposed to have been restarted, but for some reason that did not happen, and she has remained off treatment. She says she has a little more energy and she says her breathing is okay, but she remains on supplemental oxygen. Her appetite has been pretty bad and she complains that she has no taste. However, her weight is up 5 pounds since June. She does not have fever or night sweats. She does not complain of cough. For the past 2 weeks she has been having some pain intermittently in the substernal/epigastric area. She does not have any other obvious acid reflux symptoms, and she is on Protonix. She has not had any problems with bowel function. She does report having pain and pressure in her lower abdominal area and she has been having some burning with urination. She also has had pretty severe pain in her lower back. She continues to complain that her balance is pretty bad, but that is longstanding. She continues to have numbness in her hands and feet. Medications: Allopurinol 1 Tablet (of 300 mg) Oral daily, Atorvastatin Calcium 1 Tablet (of 20 mg) Oral at bedtime, B-1 1 Tablet (of 100 mg) Oral daily, Calcium Citrate + D 1 Tablet (of 315-200 mg - Units) Oral b.i.d., Cyclobenzaprine HCl 1 - 2 Tablet (of 10 mg) Oral b.i.d., Ferrous Sulfate 1 Tablet (of 325 (65 fe) mg) Oral daily, Folic Acid 1 Tablet (of 1 mg) Oral daily, Imodium A-D 1 Capsule (of 2 mg) Oral daily, Levothyroxine Sodium 1 Tablet (of 50 mcg) Oral daily, LORazepam 1 - 2 Tablet (of 0.5 mg) Oral t.i.d., Metoprolol Tartrate (25 mg) Tablet Oral Take as Directed, Multivitamin Adult 1 Tablet Oral daily, Pantoprazole Sodium 1 Tablet (of 40 mg) Tablet, enteric coated Oral daily, Prochlorperazine Maleate 1 Tablet (of 10 mg) Oral q 4 hours PRN, rOPINIRole HCl 2 Tablet (of 0.25 mg) Oral at bedtime, Stool Softener 1 Tablet (of 100 mg) Oral daily, traZODone HCl 0.5 - 1 Tablet (of 50 mg) Oral at bedtime, Vitamin C 1 Capsule (of 500 mg) Oral daily Allergies: Cortisone Acetate, Demerol, Dilaudid, Haldol, and Morphine Sulfate. Vital Signs: Performed on Oct 27, 2020 09:38 Height - 59.00 in Weight - 114.6 lbs (HIGH) BSA - 1.46 sq.m BMI - 23.15 Temperature - 98.8 F Pulse - 88 /min Respiration - 20 /min BP - 114/75 mm(hg) O2 Sat - 91 % (LOW) Pain - 5 Fatigue - 0 Physical Examination: Constitutional - She appears chronically ill, Eyes - Sclerae nonicteric. Conjunctivae clear, ENMT - No lesions noted in the oral cavity, Hematologic/Lymphatic - No cervical, clavicular, or axillary adenopathy, Respiratory - Lungs sound clear but with diminished air movement bilaterally, Cardiovascular - Heart rhythm is regular. There is no murmur, gallop, or rub noted, Abdomen - Soft. Liver is not enlarged. Spleen is not palpable. There is no abdominal mass or ascites noted and there is no inguinal adenopathy, Extremities - No edema, Neurologic - No focal neurologic deficits noted. Lab/Imaging: Test performed on Oct 27, 2020 08:35 LDH (Total) 217 U/L Sodium 131 mmol/L Potassium 3.7 mmol/L Chloride 93 mmol/L CO2 29 mmol/L Anion Gap 12.7 BUN 8 mg/dL Creatinine 0.6 mg/dL Cr Clearance (Est) 83.7100 mL/min eGFR 102.3 mL/min Glucose 100 mg/dL Osmolality - Calculated 270 mOsm/kg Calcium 9.7 mg/dL Protein, Total 7.2 g/dL Albumin 4.2 g/dL Globulin 3.0 g/dL Bilirubin, Total 0.7 mg/dL ALT (SGPT) 28 U/L AST (SGOT) 51 U/L Alkaline Phosphatase 75 IU/L WBC 6.9 10 3/uL RBC 4.01 10 6/uL HGB 12.1 g/dL HCT 36.4 % MCV 90.8 fL MCH 30.2 pg MCHC 33.2 g/dL RDW 14.0 % Platelet Count 294 10 3/cmm MPV 10.7 fL Neutrophils 4.34 10 3/uL Lymphocytes 1.1 10 3/uL Monocytes 1.2 10 3/uL Eosinophils 0.1 10 3/uL Basophils 0.1 10 3/uL Neutrophil % 63.3 % Lymphocyte % 15.3 % Monocyte % 17.5 % Eosinophil % 2.0 % Basophils % 1.6 % NRBC % 0 % Problem List: 1. Waldenstr???m macroglobulinemia. 2. Peripheral neuropathy. 3. Hypertension. 4. Hyperlipidemia. 5. Fibromyalgia. 6. Degenerative arthritis and degenerative disease of the spine. She has associated cervical spinal canal stenosis. 7. She was reportedly found to be positive for the Factor V Leiden mutation. Problems Addressed with this Encounter and Plan: 1. Patient with lymphoproliferative disorder with associated IgM monoclonal gammopathy. 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 The MYD88 mutation was detected, consistent with Waldenstr???m macroglobulinemia. She has significant peripheral neuropathy, which I have assumed to be related. Her treatment has included two 4-week courses of weekly rituximab, administered in January and in May 2020, together with ibrutinib 420 mg daily. Overall, she has tolerated the treatment well. She has had a very good objective response, though without significant change in her clinical status. In September 2020 her ibrutinib was temporarily put on hold due to visual changes, but these were ultimately felt to be more likely associated with gabapentin. She will now restart the ibrutinib at 420 mg daily. She will be scheduled for follow-up visit in 1 month. 2. In August 2020 she was admitted to the hospital with community-acquired pneumonia. She improved on antibiotic therapy. During subsequent follow-up she was found to be hypoxic, and she has since then required home oxygen. At this point her oxygen saturation is just barely adequate at 91% on oxygen. As such, she will be scheduled for CT pulmonary angiogram. She will have further evaluation as indicated. Anticipate that she will require referral to a computer game designer. 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 3. She has having lower abdominal discomfort and dysuria. I will check urinalysis/culture today. She will have treatment as indicated. Signed By: Robin Solorzano M.D. <<Signature on File>>
[2020-10-27 12:37] LABS: Immunoglobulin IGA 113 mg/dL (70-400); Immunoglobulin IGG 808 mg/dL (700-1600); Immunoglobulin IGM 590 mg/dL (40-230)
[2020-10-28 09:12] LABS: PROTEIN, TOTAL 6.2 g/dL (6.1-8.1)
[2020-10-28 16:27] LABS: ABNORMAL PROTEIN BAND 1 0.5 g/dL (NONE DETECTED); ALBUMIN 3.5 g/dL (3.8-4.8); ALPHA 1 GLOBULIN 0.3 g/dL (0.2-0.3); ALPHA 2 GLOBULIN 0.7 g/dL (0.5-0.9); BETA 1 GLOBULIN 0.4 g/dL (0.4-0.6); BETA 2 GLOBULIN 0.3 g/dL (0.2-0.5)
== END 2020-10-27 07:45 | disposition home or self-care (01) ==
LOC: ONCMED 07:46
PROVIDERS: PCP Physician Assistant; Visit Provider Internal Medicine Medical Oncology
DX: C88.0 Waldenstrom macroglobulinemia (principal); D47.2 Monoclonal gammopathy; R10.9 Unspecified abdominal pain; R09.02 Hypoxemia; R30.0 Dysuria; D68.51 Activated protein C resistance; Z92.21 Personal history of antineoplastic chemotherapy; Z99.81 Dependence on supplemental oxygen; Z77.090 Contact with and (suspected) exposure to asbestos; Z79.899 Other long term (current) drug therapy
CPT/HCPCS: 36415; 80053; 81003; 82784; 83615; 84155; 84165; 85025; 99214

== ENCOUNTER 2020-11-06 07:54 | Outpatient (CLI) | payer MEDICARE, MEDICAID, SELFPAY ==
--- NOTE | 2020-11-06 08:04 | CT_ITS ---
WS: [id number] CTA OF THE CHEST WITH PULMONARY EMBOLISM PROTOCOL TECHNIQUE: High-resolution contrast enhanced CTA of the chest with coronal and sagittal reformatted i mages with pulmonary embolism protocol. MIP images are also reviewed. CLINICAL INFORMATION: WALDENSTROMS MACROGLOBULINEMIA/SHORTNESS OF BREATH/HYPOXIA COMPARISON: November 14, 2019 and CTA 2012 DLP: 412.[address] scans at [facility] use at least one of these dose optimization techniques: automat ed exposure control; mA and/or kV adjustment per patient size (includes targeted exams where dose is matched to clinical indication); or iterative reconstruction. FINDINGS: Proximal main pulmonary arteries are normal. Normal segmental and subsegmental pulmonary arteries. No evidence of pulmonary embolus. Normal caliber thoracic aorta. Coronary calcification. No mediastinal or hilar lymphadenopathy. No ax illary lymphadenopathy. Chronic emphysematous changes. No acute pulmonary infiltrates. No focal pneumonia or pleural fluid. N o suspicious pulmonary parenchymal abnormalities. Adrenal glands are normal. Small esophageal hiatal hernia. CT/CT angio chest PE protcl [id number] IMPRESSION: 1. Proximal main pulmonary arteries are normal. No evidence of pulmonary embol us.4 2. Chronic emphysematous changes. No acute pulmonary infiltrates. 3. No mediastinal or hilar lymphadenopathy. No axillary lymphadenopathy. 4. Small esophageal hiatal hernia.
[2020-11-06] MEDS: iohexol 350 mg/mL 100 mL Btl IV (08:39)
== END 2020-11-06 07:55 | disposition home or self-care (01) ==
LOC: RADWPI 07:54
PROVIDERS: PCP Physician Assistant; Visit Provider Internal Medicine Medical Oncology
DX: C88.0 Waldenstrom macroglobulinemia (principal); R06.02 Shortness of breath; R09.02 Hypoxemia; K44.9 Diaphragmatic hernia without obstruction or gangrene
CPT/HCPCS: 71275; Q9967

== ENCOUNTER 2020-12-09 08:48 | Outpatient (CLI) | payer MEDICARE, MEDICAID, SELFPAY ==
[2020-12-09 10:08] LABS: Basophils # 0.1 10^3/uL (0.0-0.1); Basophils % 1.9 %; Eosinophils # 0.4 10^3/uL (0.0-0.8); Eosinophils % 5.1 %; Hemoglobin 11.7 g/dL (11.5-15.3); Lymphocytes # 3.3 10^3/uL (0.8-4.8); Lymphocytes % 45.5 %; Mean Corpuscular HGB Conc 32.5 g/dL (30.0-36.0); Mean Corpuscular Hemoglobin 30.1 pg (28.0-34.0); Mean Corpuscular Volume 92.5 fL (81-99); Monocytes # 1.3 10^3/uL (0.2-0.9); Neutrophils # 2.14 10^3/uL (1.8-7.7); Neutrophils % 29.2 %; Nucleated Red Blood Cells % 0 %; Platelet Count 185 10^3/cmm (130-400); Red Blood Count 3.89 10^6/uL (4.1-5.3); Red Cell Distribution Width 13.9 % (12.1-15.1); White Blood Count 7.3 10^3/uL (4.0-10.0)
[2020-12-09 10:31] LABS: Alanine Aminotransferase 26 U/L (0-33); Alkaline Phosphatase 54 IU/L (35-105); Anion Gap 10.6 (5-19); Aspartate Amino Transferase 46 U/L (0-32); Blood Urea Nitrogen 11 mg/dL (6-20); Calcium 8.9 mg/dL (8.5-10.5); Carbon Dioxide 31 mmol/L (22-29); Chloride 97 mmol/L (98-107); Globulin 2.4 g/dL (1.3-4.6); Glomerular Filtration Rate 73.4 mL/min (90-130); Glucose 76 mg/dL (65-115); Immunoglobulin IGA 115 mg/dL (70-400); Immunoglobulin IGG 765 mg/dL (700-1600); Immunoglobulin IGM 538 mg/dL (40-230); Lactate Dehydrogenase 250 U/L (135-214); Osmolality Calculated 278 mOsm/kg (285-295); Potassium 3.6 mmol/L (3.5-5.1); Sodium 135 mmol/L (136-145); Total Bilirubin 0.5 mg/dL (0.15-1.2); Total Protein 6.4 g/dL (6.6-8.7)
--- NOTE | 2020-12-12 16:01 | ONC FU_ITS ---
Dr. Solorzano Patient Follow-Up Note Patient: Yulisa Kinney Unit #: [id number]: 1960 Dicatated By: Robin Solorzano M.D.Date of Visit:Dec 09, 2020 Onc Med Follow-up/Prog Note Chief Complaint: Waldenstrom macroglobulinemia. History of Present Illness: This is a 60 year-old woman with Waldenstrom macroglobulinemia, presenting with lymphocytosis, anemia, and splenomegly in association with IgM monoclonal gammopathy. She had been seeing Dr. Jasso in neurology for peripheral neuropathy symptoms. She had been diagnosed with bilateral carpal tunnel syndrome and lumbar radiculopathy. On 09/26/2019 she had a follow-up outpatient visit with Lucy Dean. Her laboratory studies included CBC showing hemoglobin 9.7 g and hematocrit 31.5%. The red cell indices were normal. The white blood cell count was elevated 14,900 with the differential showing 23% granulocytes, 68% lymphocytes, and 7% monocytes. The platelet count was normal at 165,000. Comprehensive metabolic profile showed borderline renal function with BUN 15 and creatinine 1.1 mg/dL. The albumin was normal at 4.2 g/dL with calculated serum globulin elevated at 4.4 g/dL. The liver enzymes were normal. Sed rate and CRP levels were normal. TSH was borderline at 4.74 ???IUl/mL. B12 was normal at 568 pg/mL. Folate was greater than 24.0 ng/mL. The serum iron studies showed slightly low transferrin saturation at 18%. Ferritin was normal at 65 ng/mL. Protein electrophoresis showed a monoclonal protein band quantitating at 1.2 g/dL. Immunofixation showed IgM lambda. I had seen her initially on 10/31/2019. She was noted to have a palpable spleen, but there was no peripheral lymphadenopathy noted. Her repeat CBC showed hemoglobin 9.9 g, white blood cell count 17,000, and platelet count 124,000. The differential showed 70% lymphocytes, 18% neutrophils, 8% monocytes, and 1% eosinophils. Comprehensive metabolic profile was unremarkable except for slightly elevated SGOT at 46/32 U/L. LDH was just slightly elevated at 231/214 U/L. Protein electrophoresis showed an M band quantitating at 1.1 g/dL. The quantitative immunoglobulins included IgG elevated at 1464/230 mg/dL, IgG normal at 1129 mg/dL, and IgA normal at 113 mg/dL. The free light chain assay showed elevated lambda light chain at 53.3 mg/L, kappa light chain 33.8 mg/L and kappa/lambda ratio within the normal range at 0.63. A whole blood flow cytometry on 11/06/2019 showed on monotypic B-cell population which was positive for CD19, CD20, and CD22. There was dim/partial positivity to FMC7 and CD25. A subset showed surface lambda light chain restriction, but the remaining population appeared to be light chain negative. The monotypic B cells were negative for CD5, CD10, CD23, CD11c, CD103, CD123, CD200, CD38, and CD34. The phenotype was felt to be nonspecific. Staging CT scans of the chest, abdomen, and pelvis on 11/14/2019 showed prominent left axillary lymph nodes, the largest measuring 10 mm, an enlarged celiac axis lymph node measuring 11.5 mm, a prominent left periaortic lymph node measuring 7 mm, and prominent inguinal lymph nodes measuring up to 10 mm. The spleen was enlarged measuring 13.1 cm. The right hepatic lobe was noted to be enlarged, but the liver otherwise appeared normal. She underwent bone marrow aspiration/biopsy on 12/05/2019. The interpretation was limited due to the bone marrow aspirate specimens having been hemodiluted without cellular spicules. Bone marrow was noted to be hypercellular on the biopsy specimen, averaging 60 to 90% cellularity. An extensive interstitial and diffuse lymphoid infiltrate was noted to involve a high proportion of the marrow space, estimated at 70 to 80%. The lymphoid cells were noted to be small and round with clumped nuclear chromatin. There was evidence of plasmacytic differentiation. The flow cytometry showed nonspecific phenotype, similar to the whole blood specimen. Iron stores were noted to be reduced, but not absent. Overall, the findings were not definitive, but they were suggestive of lymphoplasmacytic lymphoma. The MYD88 mutation was detected, consistent with Waldenstrom macroglobulinemia. Her other medical illnesses includehypertension, hyperlipidemia, fibromyalgia, and degenerative arthritis/degenerative disease of the spine. She has had multiple surgeries on both the cervical and lumbar spine. She reportedly was found to be positive for the Factor V Leiden mutation. She has history of smoking for 30 years, up to 2 packs of cigarettes daily. She quit smoking in 2006. INTERIM HISTORY: On 01/13/2020 she began a course of treatment with rituximab in combination with ibrutinib 420 mg daily. She completed the initial 4 weekly infusions of rituximab with no adverse effects. She then continued the ibrutinib at 420 mg daily. As of her follow-up visit on 03/04/2020 there had been a significant decline in her M protein, to 0.7 g/dL, and there also was significant improvement in the splenomegaly. There was not a significant change in her clinical status. She then continued ibrutinib 420 mg daily, which she tolerated well. As of her follow-up visit on 05/04/2020 her repeat protein electrophoresis showed residual M protein quantitating at 0.7 g/dL. She began her second course of rituximab administered weekly for 4 weeks. She completed her week 4 treatment on 05/25/2020. She tolerated it very well, and she then continued her treatment with ibrutinib 420 mg daily. On 08/13/2020 she was admitted to the hospital with pneumonia, having presented to the emergency room with mental status changes. She improved clinically on antibiotic therapy. She was discharged home on 08/17/2020. At that point she had adequate oxygen saturation on room air. However, on outpatient follow-up with Lucy Dean she apparently was found to be significantly hypoxic, and she was then started on home oxygen. At her follow-up visit on 09/24/2020 her ibrutinib was temporarily put on hold due to visual changes. Ultimately these were felt to be more likely due to gabapentin. Her ibrutinib was supposed to have been restarted, but for some reason that did not happen, and she remained off treatment. I have been seeing her for a follow-up visit on 10/27/2020. At that point her blood counts were adequate. She remained oxygen dependent, but she otherwise appeared stable clinically, and I did have her restart the ibrutinib at 420 mg daily. She is seen for a follow-up visit. She continues to complain that her energy is low, but she is able to do light work at home. ECOG score is 1. Her appetite is not real good. Her weight, though, is up a couple of pounds. She does not have fever or night sweats. She reports having some sinus drainage, and she has dryness in her mouth and throat. She does not complain of cough, but she still has shortness of breath and she remains on supplemental oxygen. She does not complain of chest pain. She has no GI or complaints. She has pain in her elbows and knees and she also has back pain, which is chronic. She does not complain of headache. She does have some dizziness and she continues to have numbness/tingling in her hands and feet. Medications: Allopurinol 1 Tablet (of 300 mg) Oral daily, Atorvastatin Calcium 1 Tablet (of 20 mg) Oral at bedtime, B-1 1 Tablet (of 100 mg) Oral daily, Calcium Citrate + D 1 Tablet (of 315-200 mg - Units) Oral b.i.d., Cyclobenzaprine HCl 1 - 2 Tablet (of 10 mg) Oral b.i.d., Ferrous Sulfate 1 Tablet (of 325 (65 fe) mg) Oral daily, Folic Acid 1 Tablet (of 1 mg) Oral daily, Imodium A-D 1 Capsule (of 2 mg) Oral daily, Levothyroxine Sodium 1 Tablet (of 50 mcg) Oral daily, LORazepam 1 - 2 Tablet (of 0.5 mg) Oral t.i.d., Metoprolol Tartrate (25 mg) Tablet Oral Take as Directed, Multivitamin Adult 1 Tablet Oral daily, Pantoprazole Sodium 1 Tablet (of 40 mg) Tablet, enteric coated Oral daily, Prochlorperazine Maleate 1 Tablet (of 10 mg) Oral q 4 hours PRN, rOPINIRole HCl 2 Tablet (of 0.25 mg) Oral at bedtime, Stool Softener 1 Tablet (of 100 mg) Oral daily, traZODone HCl 0.5 - 1 Tablet (of 50 mg) Oral at bedtime, Vitamin C 1 Capsule (of 500 mg) Oral daily Allergies: Cortisone Acetate, Demerol, Dilaudid, Haldol, and Morphine Sulfate. Vital Signs: Performed on Dec 09, 2020 10:23 Height - 59.00 in Weight - 116.2 lbs (HIGH) BSA - 1.46 sq.m BMI - 23.47 Temperature - 98.3 F (LOW) Pulse - 78 /min Respiration - 20 /min BP - 117/71 mm(hg) O2 Sat - 95 % (LOW) Pain - 0 Fatigue - 10 Physical Examination: Constitutional - She appears chronically ill, Eyes - Sclerae nonicteric. Conjunctivae clear, ENMT - No lesions noted in the oral cavity, Hematologic/Lymphatic - No cervical, clavicular, or axillary adenopathy, Respiratory - Lungs sound clear but with diminished air movement bilaterally, Cardiovascular - Heart rhythm is regular. There is no murmur, gallop, or rub noted, Abdomen - Soft. Liver is not enlarged. Spleen is not palpable. There is no abdominal mass or ascites noted and there is no inguinal adenopathy, Extremities - No edema, Neurologic - No focal neurologic deficits noted. Lab/Imaging: Test performed on Dec 09, 2020 09:09 LDH (Total) 250 U/L Sodium 135 mmol/L Potassium 3.6 mmol/L Chloride 97 mmol/L CO2 31 mmol/L Anion Gap 10.6 BUN 11 mg/dL Creatinine 0.8 mg/dL Cr Clearance (Est) 62.7900 mL/min eGFR 73.4 mL/min Glucose 76 mg/dL Osmolality - Calculated 278 mOsm/kg Calcium 8.9 mg/dL Protein, Total 6.4 g/dL Albumin 4.0 g/dL Globulin 2.4 g/dL Bilirubin, Total 0.5 mg/dL ALT (SGPT) 26 U/L AST (SGOT) 46 U/L Alkaline Phosphatase 54 IU/L WBC 7.3 10 3/uL RBC 3.89 10 6/uL HGB 11.7 g/dL HCT 36.0 % MCV 92.5 fL MCH 30.1 pg MCHC 32.5 g/dL RDW 13.9 % Platelet Count 185 10 3/cmm MPV 12.0 fL Neutrophils 2.14 10 3/uL Lymphocytes 3.3 10 3/uL Monocytes 1.3 10 3/uL Eosinophils 0.4 10 3/uL Basophils 0.1 10 3/uL Neutrophil % 29.2 % Lymphocyte % 45.5 % Monocyte % 18.0 % Eosinophil % 5.1 % Basophils % 1.9 % NRBC % 0 % IgG 765 mg/dL IgA 115 mg/dL IgM 538 mg/dL Problem List: 1. Waldenstr???m macroglobulinemia. 2. Peripheral neuropathy. 3. Hypertension. 4. Hyperlipidemia. 5. Fibromyalgia. 6. Degenerative arthritis and degenerative disease of the spine. She has associated cervical spinal canal stenosis. 7. She was reportedly found to be positive for the Factor V Leiden mutation. Problems Addressed with this Encounter and Plan: 1. Patient with lymphoproliferative disorder with associated IgM monoclonal gammopathy. 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 The MYD88 mutation was detected, consistent with Waldenstr???m macroglobulinemia. She has significant peripheral neuropathy, which I have assumed to be related. Her treatment has included two 4-week courses of weekly rituximab, administered in January and in May 2020, together with ibrutinib 420 mg daily. Overall, she has tolerated the treatment well. She has had a very good objective response, though without significant change in her clinical status. In September 2020 her ibrutinib was temporarily put on hold due to visual changes, but these were ultimately felt to be more likely associated with gabapentin. As of her follow-up visit on 10/27/2019 when she restarted ibrutinib at 420 mg daily. She continues to have somewhat marginal performance status, and thus far she has remained oxygen dependent. However, she appears to be having no significant adverse effects with her treatment, and she does appear to have a stable response. As such, she will continue the ibrutinib at 420 mg daily. She will be scheduled for a follow-up visit in 1 month. 2. In August 2020 she was admitted to the hospital with community-acquired pneumonia. She improved on antibiotic therapy. During subsequent follow-up she was found to be hypoxic, and she was then started on home oxygen. Her CT pulmonary angiogram in 11/06/2020 showed no evidence of pulmonary embolism. There were chronic emphysematous changes, but there were no acute pulmonary infiltrates noted and there was no mediastinal or hilar adenopathy noted. She has since then remained oxygen dependent. At this point she will be scheduled for pulmonary function studies, and I also will arrange for referral to a administrative services assistant. Signed By: Robin Solorzano M.D. <<Signature on File>>
== END 2020-12-09 08:49 | disposition home or self-care (01) ==
PROVIDERS: PCP Physician Assistant; Visit Provider Internal Medicine Medical Oncology
DX: C88.0 Waldenstrom macroglobulinemia (principal); D68.51 Activated protein C resistance; Z79.899 Other long term (current) drug therapy; Z99.81 Dependence on supplemental oxygen
CPT/HCPCS: 36415; 80053; 82784; 83615; 85025; 99214

== ENCOUNTER 2021-01-12 15:22 | Outpatient (CLI) | payer MEDICARE, MEDICAID, SELFPAY ==
[2021-01-12 16:59] LABS: Basophils # 0.1 10^3/uL (0.0-0.1); Basophils % 1.2 %; Eosinophils # 0.1 10^3/uL (0.0-0.8); Eosinophils % 1.2 %; Hematocrit 36.6 % (37.0-47.0); Hemoglobin 11.9 g/dL (11.5-15.3); Lymphocytes # 2.5 10^3/uL (0.8-4.8); Lymphocytes % 22.6 %; Mean Corpuscular HGB Conc 32.5 g/dL (30.0-36.0); Mean Corpuscular Hemoglobin 30.6 pg (28.0-34.0); Mean Corpuscular Volume 94.1 fL (81-99); Mean Platelet Volume 12.1 fL (7.4-10.4); Monocytes # 1.7 10^3/uL (0.2-0.9); Monocytes % 15.5 %; Neutrophils # 6.67 10^3/uL (1.8-7.7); Neutrophils % 59.1 %; Nucleated Red Blood Cells % 0 %; Platelet Count 182 10^3/cmm (130-400); Red Blood Count 3.89 10^6/uL (4.1-5.3); White Blood Count 11.3 10^3/uL (4.0-10.0)
[2021-01-12 18:18] LABS: Alanine Aminotransferase 34 U/L (0-33); Albumin Level 3.9 g/dL (3.5-5.2); Alkaline Phosphatase 64 IU/L (35-105); Anion Gap 11.7 (5-19); Aspartate Amino Transferase 55 U/L (0-32); Blood Urea Nitrogen 10 mg/dL (6-20); Calcium 8.4 mg/dL (8.5-10.5); Carbon Dioxide 30 mmol/L (22-29); Chloride 99 mmol/L (98-107); Ferritin 103 ng/mL (15-150); Globulin 2.5 g/dL (1.3-4.6); Glomerular Filtration Rate 85.6 mL/min (90-130); Glucose 82 mg/dL (65-115); Iron 71 ug/dL (37-145); Lactate Dehydrogenase 228 U/L (135-214); Osmolality Calculated 282 mOsm/kg (285-295); Percent Saturation 25.2 % (20-50); Potassium 3.7 mmol/L (3.5-5.1); Sodium 137 mmol/L (136-145); Thyroid Stimulating Hormone 1.53 uIU/mL (0.27-4.20); Total Bilirubin 0.5 mg/dL (0.15-1.2); Total Iron Binding Capacity 281 mcg/dl; Total Protein 6.4 g/dL (6.6-8.7); Unsaturated Iron Binding 210 ug/dL (112-347); Vitamin B12 1185 pg/mL (232-1245)
[2021-01-12 18:57] LABS: Erythrocyte Sedimentation Rate 7 mm/hr (0-15)
[2021-01-14 07:42] LABS: PROTEIN, TOTAL 6.5 g/dL (6.1-8.1)
[2021-01-14 12:42] LABS: ABNORMAL PROTEIN BAND 1 0.5 g/dL (NONE DETECTED); ALBUMIN 3.7 g/dL (3.8-4.8); ALPHA 1 GLOBULIN 0.4 g/dL (0.2-0.3); ALPHA 2 GLOBULIN 0.7 g/dL (0.5-0.9); BETA 1 GLOBULIN 0.4 g/dL (0.4-0.6); BETA 2 GLOBULIN 0.3 g/dL (0.2-0.5); GAMMA GLOBULIN 1.1 g/dL (0.8-1.7)
--- NOTE | 2021-01-16 13:08 | ONC FU_ITS ---
Dr. Solorzano Patient Follow-Up Note Patient: Yulisa Kinney Unit #: [id number]: 1960 Dicatated By: Robin Solorzano M.D.Date of Visit:January 12, 2021 Onc Med Follow-up/Prog Note Chief Complaint: Waldenstrom macroglobulinemia. History of Present Illness: This is a 60 year-old woman with Waldenstrom macroglobulinemia, presenting with lymphocytosis, anemia, and splenomegly in association with IgM monoclonal gammopathy. She had been seeing Dr. Jasso in neurology for peripheral neuropathy symptoms. She had been diagnosed with bilateral carpal tunnel syndrome and lumbar radiculopathy. On 09/26/2019 she had a follow-up outpatient visit with Lucy Dean. Her laboratory studies included CBC showing hemoglobin 9.7 g and hematocrit 31.5%. The red cell indices were normal. The white blood cell count was elevated 14,900 with the differential showing 23% granulocytes, 68% lymphocytes, and 7% monocytes. The platelet count was normal at 165,000. Comprehensive metabolic profile showed borderline renal function with BUN 15 and creatinine 1.1 mg/dL. The albumin was normal at 4.2 g/dL with calculated serum globulin elevated at 4.4 g/dL. The liver enzymes were normal. Sed rate and CRP levels were normal. TSH was borderline at 4.74 ???IUl/mL. B12 was normal at 568 pg/mL. Folate was greater than 24.0 ng/mL. The serum iron studies showed slightly low transferrin saturation at 18%. Ferritin was normal at 65 ng/mL. Protein electrophoresis showed a monoclonal protein band quantitating at 1.2 g/dL. Immunofixation showed IgM lambda. I had seen her initially on 10/31/2019. She was noted to have a palpable spleen, but there was no peripheral lymphadenopathy noted. Her repeat CBC showed hemoglobin 9.9 g, white blood cell count 17,000, and platelet count 124,000. The differential showed 70% lymphocytes, 18% neutrophils, 8% monocytes, and 1% eosinophils. Comprehensive metabolic profile was unremarkable except for slightly elevated SGOT at 46/32 U/L. LDH was just slightly elevated at 231/214 U/L. Protein electrophoresis showed an M band quantitating at 1.1 g/dL. The quantitative immunoglobulins included IgG elevated at 1464/230 mg/dL, IgG normal at 1129 mg/dL, and IgA normal at 113 mg/dL. The free light chain assay showed elevated lambda light chain at 53.3 mg/L, kappa light chain 33.8 mg/L and kappa/lambda ratio within the normal range at 0.63. A whole blood flow cytometry on 11/06/2019 showed on monotypic B-cell population which was positive for CD19, CD20, and CD22. There was dim/partial positivity to FMC7 and CD25. A subset showed surface lambda light chain restriction, but the remaining population appeared to be light chain negative. The monotypic B cells were negative for CD5, CD10, CD23, CD11c, CD103, CD123, CD200, CD38, and CD34. The phenotype was felt to be nonspecific. Staging CT scans of the chest, abdomen, and pelvis on 11/14/2019 showed prominent left axillary lymph nodes, the largest measuring 10 mm, an enlarged celiac axis lymph node measuring 11.5 mm, a prominent left periaortic lymph node measuring 7 mm, and prominent inguinal lymph nodes measuring up to 10 mm. The spleen was enlarged measuring 13.1 cm. The right hepatic lobe was noted to be enlarged, but the liver otherwise appeared normal. She underwent bone marrow aspiration/biopsy on 12/05/2019. The interpretation was limited due to the bone marrow aspirate specimens having been hemodiluted without cellular spicules. Bone marrow was noted to be hypercellular on the biopsy specimen, averaging 60 to 90% cellularity. An extensive interstitial and diffuse lymphoid infiltrate was noted to involve a high proportion of the marrow space, estimated at 70 to 80%. The lymphoid cells were noted to be small and round with clumped nuclear chromatin. There was evidence of plasmacytic differentiation. The flow cytometry showed nonspecific phenotype, similar to the whole blood specimen. Iron stores were noted to be reduced, but not absent. Overall, the findings were not definitive, but they were suggestive of lymphoplasmacytic lymphoma. The MYD88 mutation was detected, consistent with Waldenstrom macroglobulinemia. Her other medical illnesses includehypertension, hyperlipidemia, fibromyalgia, and degenerative arthritis/degenerative disease of the spine. She has had multiple surgeries on both the cervical and lumbar spine. She reportedly was found to be positive for the Factor V Leiden mutation. She has history of smoking for 30 years, up to 2 packs of cigarettes daily. She quit smoking in 2006. INTERIM HISTORY: On 01/13/2020 she began a course of treatment with rituximab in combination with ibrutinib 420 mg daily. She completed the initial 4 weekly infusions of rituximab with no adverse effects. She then continued the ibrutinib at 420 mg daily. As of her follow-up visit on 03/04/2020 there had been a significant decline in her M protein, to 0.7 g/dL, and there also was significant improvement in the splenomegaly. There was not a significant change in her clinical status. She then continued ibrutinib 420 mg daily, which she tolerated well. As of her follow-up visit on 05/04/2020 her repeat protein electrophoresis showed residual M protein quantitating at 0.7 g/dL. She began her second course of rituximab administered weekly for 4 weeks. She completed her week 4 treatment on 05/25/2020. She tolerated it very well, and she then continued her treatment with ibrutinib 420 mg daily. On 08/13/2020 she was admitted to the hospital with pneumonia, having presented to the emergency room with mental status changes. She improved clinically on antibiotic therapy. She was discharged home on 08/17/2020. At that point she had adequate oxygen saturation on room air. However, on outpatient follow-up with Lucy Dean she apparently was found to be significantly hypoxic, and she was then started on home oxygen. At her follow-up visit on 09/24/2020 her ibrutinib was temporarily put on hold due to visual changes. Ultimately these were felt to be more likely due to gabapentin. Her ibrutinib was supposed to have been restarted, but for some reason that did not happen, and she remained off treatment. I have been seeing her for a follow-up visit on 10/27/2020. At that point her blood counts were adequate. She remained oxygen dependent, but she otherwise appeared stable clinically, and I did have her restart the ibrutinib at 420 mg daily. She is seen for a follow-up visit. She has not been feeling very good. Her main complaint lately is that she is dizzy all the time and that she has no balance. She has fallen a few times. She has limited activity, but she does do some walking and some light work at home. ECOG score is 1. Appetite is not very good. She does not have fever or night sweats. She does not complain of cough, but she has been having some hoarseness. She is short of breath. She uses oxygen as needed. She does not complain of chest pain. She has no GI or complaints. She has chronic pain which never goes away. She manages it with Tylenol. She does not complain of headache. She does have numbness/tingling in her hands and in her legs and feet. It is about the same. Medications: Allopurinol 1 Tablet (of 300 mg) Oral daily, Atorvastatin Calcium 1 Tablet (of 20 mg) Oral at bedtime, B-1 1 Tablet (of 100 mg) Oral daily, Calcium Citrate + D 1 Tablet (of 315-200 mg - Units) Oral b.i.d., Cyclobenzaprine HCl 1 - 2 Tablet (of 10 mg) Oral b.i.d., Ferrous Sulfate 1 Tablet (of 325 (65 fe) mg) Oral daily, Folic Acid 1 Tablet (of 1 mg) Oral daily, Imodium A-D 1 Capsule (of 2 mg) Oral daily, Levothyroxine Sodium 1 Tablet (of 50 mcg) Oral daily, LORazepam 1 - 2 Tablet (of 0.5 mg) Oral t.i.d., Metoprolol Tartrate (25 mg) Tablet Oral Take as Directed, Multivitamin Adult 1 Tablet Oral daily, Pantoprazole Sodium 1 Tablet (of 40 mg) Tablet, enteric coated Oral daily, Prochlorperazine Maleate 1 Tablet (of 10 mg) Oral q 4 hours PRN, rOPINIRole HCl 2 Tablet (of 0.25 mg) Oral at bedtime, Stool Softener 1 Tablet (of 100 mg) Oral daily, traZODone HCl 0.5 - 1 Tablet (of 50 mg) Oral at bedtime, Vitamin C 1 Capsule (of 500 mg) Oral daily Allergies: Cortisone Acetate, Demerol, Dilaudid, Haldol, and Morphine Sulfate. Vital Signs: Performed on January 12, 2021 15:45 Height - 59.00 in Weight - 115.6 lbs (LOW) BSA - 1.46 sq.m BMI - 23.35 Temperature - 99.2 F (HIGH) Pulse - 88 /min Respiration - 18 /min BP - 127/80 mm(hg) O2 Sat - 97 % Pain - 0 Fatigue - 6 Physical Examination: Constitutional - She appears generally weak and short of breath, Eyes - Sclerae nonicteric. Conjunctivae clear, ENMT - No lesions noted in the oral cavity, Hematologic/Lymphatic - No cervical, clavicular, or axillary adenopathy, Respiratory - Lungs sound clear with diminished air movement bilaterally, Cardiovascular - Heart rhythm is regular. There is no murmur, gallop, or rub noted, Abdomen - Soft. Liver is not enlarged. Spleen is not palpable. There is no abdominal mass or ascites noted and there is no inguinal adenopathy, Extremities - No edema, Neurologic - No focal neurologic deficits noted, but she does have severe postural instability. Lab/Imaging: Test performed on January 12, 2021 16:25 Ferritin 103 ng/mL Iron 71 mcg/dL LDH (Total) 228 U/L Sodium 137 mmol/L TSH 1.53 uIU/mL Vitamin B12 1185 pg/mL Iron Binding Capacity (TIBC) 281 mcg/dl Potassium 3.7 mmol/L % Iron Saturation 25.2 % Chloride 99 mmol/L CO2 30 mmol/L UIBC 210 mcg/dL Anion Gap 11.7 BUN 10 mg/dL Creatinine 0.7 mg/dL Cr Clearance (Est) 71.7600 mL/min eGFR 85.6 mL/min Glucose 82 mg/dL Osmolality - Calculated 282 mOsm/kg Calcium 8.4 mg/dL Protein, Total 6.4 g/dL Albumin 3.9 g/dL Globulin 2.5 g/dL Bilirubin, Total 0.5 mg/dL ALT (SGPT) 34 U/L AST (SGOT) 55 U/L Alkaline Phosphatase 64 IU/L ESR (Sed Rate) 7 mm/hr WBC 11.3 10 3/uL RBC 3.89 10 6/uL HGB 11.9 g/dL HCT 36.6 % MCV 94.1 fL MCH 30.6 pg MCHC 32.5 g/dL RDW 14.0 % Platelet Count 182 10 3/cmm MPV 12.1 fL Neutrophils 6.67 10 3/uL Lymphocytes 2.5 10 3/uL Monocytes 1.7 10 3/uL Eosinophils 0.1 10 3/uL Basophils 0.1 10 3/uL Neutrophil % 59.1 % Lymphocyte % 22.6 % Monocyte % 15.5 % Eosinophil % 1.2 % Basophils % 1.2 % NRBC % 0 % Problem List: 1. Waldenstr???m macroglobulinemia. 2. Peripheral neuropathy. 3. Hypertension. 4. Hyperlipidemia. 5. Fibromyalgia. 6. Degenerative arthritis and degenerative disease of the spine. She has associated cervical spinal canal stenosis. 7. She was reportedly found to be positive for the Factor V Leiden mutation. Problems Addressed with this Encounter and Plan: 1. Patient with lymphoproliferative disorder with associated IgM monoclonal gammopathy. 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 The MYD88 mutation was detected, consistent with Waldenstr???m macroglobulinemia. She has significant peripheral neuropathy, which I have assumed to be related. Her treatment has included two 4-week courses of weekly rituximab, administered in January and in May 2020, together with ibrutinib 420 mg daily. Overall, she has tolerated the treatment well. She has had a very good objective response, though without significant change in her clinical status. In September 2020 her ibrutinib was temporarily put on hold due to visual changes, but these were ultimately felt to be more likely associated with gabapentin. As of her follow-up visit on 10/27/2019 when she restarted ibrutinib at 420 mg daily. She continues to have somewhat marginal performance status, and thus far she has remained oxygen dependent. As of her follow-up visit in December 2020 she appeared to be tolerating it with no adverse effects. Since then she has reported worsening equilibrium/balance, and she says she has been falling. It is uncertain to what extent this may be treatment related. Her M protein, though, is unchanged, consistent with stable response. However, with the worsening symptoms, I will put her treatment on hold. She will be scheduled for further evaluation with head MRI and for restaging CT scans of the chest, abdomen, and pelvis. 2. In August 2020 she was admitted to the hospital with community-acquired pneumonia. She improved on antibiotic therapy. During subsequent follow-up she was found to be hypoxic, and she was then started on home oxygen. Her CT pulmonary angiogram in 11/06/2020 showed no evidence of pulmonary embolism. There were chronic emphysematous changes, but there were no acute pulmonary infiltrates noted and there was no mediastinal or hilar adenopathy noted. She has since then remained oxygen dependent. Signed By: Robin Solorzano M.D. <<Signature on File>>
== END 2021-01-12 15:23 | disposition home or self-care (01) ==
LOC: ONCMED 15:26
PROVIDERS: PCP Physician Assistant; Visit Provider Internal Medicine Medical Oncology
DX: C88.0 Waldenstrom macroglobulinemia (principal); G62.9 Polyneuropathy, unspecified; I10 Essential (primary) hypertension; E78.5 Hyperlipidemia, unspecified; M79.7 Fibromyalgia; M50.30 Other cervical disc degeneration, unspecified cervical region; M48.02 Spinal stenosis, cervical region; D68.51 Activated protein C resistance; Z79.899 Other long term (current) drug therapy
CPT/HCPCS: 36415; 80053; 82607; 82728; 83540; 83550; 83615; 84155; 84165; 84443; 85025; 85651; 99214

== ENCOUNTER 2021-01-25 12:58 | Outpatient (CLI) | payer MEDICARE, MEDICAID, SELFPAY ==
--- NOTE | 2021-01-25 13:14 | CT_ITS ---
WS: [id number] Exam: CT chest abd pel w con* Date/Time of Exam: 01/25/2021 1:05 PM Reason For Exam: MACROGLOBULINEMIA, MONOCIONAL GAMMOPATHY, LYMPHOCYTOSIS DLP: 1437.[address] scans at [facility] use at least one of these dose optimization techniques: automat ed exposure control; mA and/or kV adjustment per patient size (includes targeted exams where dose is matched to clinical indication); or iterative reconstruction. Contrast CT scan of the chest compared to the last exam 11/06/2020. The lungs are fully expanded. No suspicious pulmonary nodule or mass. Emphysematous changes are noted . Mild plaque atelectasis in the lingula and left lower lobe. No pleural or pericardial effusion seen . The airway is patent. The thoracic aorta is normal in caliber. The central pulmonary arteries are c lear. Coronary artery calcifications. Normal thyroid tissue. No axillary lymphadenopathy. No mediasti nal or hilar lymphadenopathy. No destructive bone lesions are seen. CT/CT chest abd pel w con* IMPRESSION: 1. No suspicious pulmonary mass or nodule. No lymphadenopathy in the chest. 2. Emphysematous changes. CT scan of the abdomen and pelvis with IV and oral contrast. The liver, spleen and pancreas appear normal. There is wall thickening of the s tomach that might reflect gastritis versus underdistention of the stomach. The abdominal aorta is normal in caliber. The portal vein and IVC are patent. Sapna l adrenal glands. 3 mm nonobstructing stone in the left kidney. The kidneys sam w no sign of obstruction. Several tiny renal cysts are seen. No free air. No ly mphadenopathy. Small bowel loops are not dilated. No calcified stones in the ga llbladder. Normal appendix visualized. No significant large bowel abnormality n oted. No mass or lymphadenopathy in the pelvis. Markedly distended urinary blad fito. The uterus is atrophic. No destructive bone lesions. Tiny periumbilical fa t filled hernia. There is interbody fusion of the spine at the L4-5 disc level with pedicle screws and posterior rods. A disc implant is noted at the L4-5 lev el. Grade 1 spondylolisthesis of L4 on L5 noted. No destructive bone lesions ar e seen. IMPRESSION: 1. No mass or lymphadenopathy in the abdomen. 2. 3 mm nonobstructing stone in the left kidney. 3. There may be some wall thickening of the stomach that might reflect gastriti s or underdistention of the stomach. 4. Other minor nonacute findings as detailed above.
[2021-01-25] MEDS: iohexol 300 mg/mL 50 mL Btl PO (14:19)
[2021-01-25] MEDS: iohexol 300 mg/mL 100 mL Btl IV (14:42)
== END 2021-01-25 12:59 | disposition home or self-care (01) ==
PROVIDERS: PCP Physician Assistant; Visit Provider Internal Medicine Medical Oncology
DX: C88.0 Waldenstrom macroglobulinemia (principal); D47.2 Monoclonal gammopathy; D72.820 Lymphocytosis (symptomatic); N20.0 Calculus of kidney
CPT/HCPCS: 71260; 74177; Q9967

== ENCOUNTER → 2021-01-27 13:43 | Outpatient (BNVA) | payer MEDICARE, MEDICAID, SELFPAY | PROVIDERS: PCP Physician Assistant; Visit Provider Specialist | DX: G62.9 Polyneuropathy, unspecified (principal); Z87.891 Personal history of nicotine dependence | CPT/HCPCS: 99214 ==

== ENCOUNTER 2021-02-02 09:11 | Outpatient (CLI) | payer MEDICARE, MEDICAID, SELFPAY ==
--- NOTE | 2021-02-02 09:16 | MR_ITS ---
WS: [id number] MRI HEAD WITH CONTRAST TECHNIQUE: Sagittal T1, T2 axial, T2 axial FLAIR, axial susceptibility weighted imaging, axial diffus ion weighted images, and coronal T2 images were obtained. Pre and post-T1 axial and post T1 coronal i mages. ADC and FSPGR images. CLINICAL INFORMATION: MACROGLOBULINEMIA,WEAKNESS,DYSEQUILBRIUM COMPARISON: MRI September 21, 2020 FINDINGS: No evidence of restricted diffusion to suggest acute ischemia. Ventricular system and basal cisterns are patent. Mild small vessel changes. Moderate parenchymal volume loss. Normal posterior fossa. [employer] juan pablo lacunar infarcts in the cerebellum unchanged. Normal vascular flow voids at the skull base. No ex tra axial fluid collections. No evidence of mass or mass effect. Paranasal sinuses and mastoid air cells well aerated. Prior postoperative changes in the upper cervic al spine with susceptibility artifact. No hemosiderin on the susceptibly weighted images. Normal opti c chiasm and pituitary infundibulum. Normal cavernous sinuses and Meckel's cave. Mild symmetric atrop hy temporal lobes and hippocampal formations. No abnormal gadolinium enhancement. No abnormal intracranial enhancement. Dural venous sinuses are pa tent. MR/MR head wo/w con [id number] IMPRESSION: 1. No evidence of restricted diffusion to suggest acute ischemia. 2. No evidence of enhancing intracranial metastatic disease. 3. Mild small vessel changes. Moderate parenchymal volume loss. 4. Mild symmetric atrophy temporal lobes and hippocampal formations. 5. Tiny chronic lacunar infarcts in the cerebellum bilaterally are unchanged.
== END 2021-02-02 09:12 | disposition home or self-care (01) ==
LOC: RADSHAW 09:15
PROVIDERS: PCP Physician Assistant; Visit Provider Internal Medicine Medical Oncology
DX: C88.0 Waldenstrom macroglobulinemia (principal); D72.820 Lymphocytosis (symptomatic); D47.2 Monoclonal gammopathy
CPT/HCPCS: 70553; A9577

== ENCOUNTER 2021-02-25 13:14 | Outpatient (CLI) | payer MEDICARE, MEDICAID, SELFPAY ==
[2021-02-25 14:27] LABS: Basophils # 0.1 10^3/uL (0.0-0.1); Basophils % 1.3 %; Eosinophils # 0.6 10^3/uL (0.0-0.8); Eosinophils % 9.5 %; Lymphocytes % 31.4 %; Mean Corpuscular HGB Conc 32.4 g/dL (30.0-36.0); Mean Corpuscular Hemoglobin 30.4 pg (28.0-34.0); Mean Corpuscular Volume 93.7 fL (81-99); Mean Platelet Volume 10.4 fL (7.4-10.4); Monocytes # 1.1 10^3/uL (0.2-0.9); Monocytes % 16.8 %; Neutrophils # 2.56 10^3/uL (1.8-7.7); Neutrophils % 40.7 %; Nucleated Red Blood Cells % 0 %; Platelet Count 247 10^3/cmm (130-400); Red Blood Count 3.95 10^6/uL (4.1-5.3); Red Cell Distribution Width 13.4 % (12.1-15.1); White Blood Count 6.3 10^3/uL (4.0-10.0)
[2021-02-25 14:58] LABS: Alanine Aminotransferase 23 U/L (0-33); Albumin Level 4.2 g/dL (3.5-5.2); Alkaline Phosphatase 65 IU/L (35-105); Anion Gap 12.6 (5-19); Aspartate Amino Transferase 46 U/L (0-32); Blood Urea Nitrogen 11 mg/dL (6-20); Calcium 9.4 mg/dL (8.5-10.5); Carbon Dioxide 27 mmol/L (22-29); Chloride 97 mmol/L (98-107); Globulin 2.4 g/dL (1.3-4.6); Glomerular Filtration Rate 73.4 mL/min (90-130); Glucose 104 mg/dL (65-115); Immunoglobulin IGA 87 mg/dL (70-400); Immunoglobulin IGG 758 mg/dL (700-1600); Lactate Dehydrogenase 219 U/L (135-214); Osmolality Calculated 276 mOsm/kg (285-295); Potassium 3.6 mmol/L (3.5-5.1); Sodium 133 mmol/L (136-145); Total Bilirubin 0.3 mg/dL (0.15-1.2); Total Protein 6.6 g/dL (6.6-8.7)
[2021-02-25 15:11] LABS: Immunoglobulin IGM 691 mg/dL (40-230)
[2021-02-25 15:33] LABS: Erythrocyte Sedimentation Rate 9 mm/hr (0-15)
[2021-02-26 08:28] LABS: PROTEIN, TOTAL 6.5 g/dL (6.1-8.1)
[2021-02-26 13:27] LABS: ABNORMAL PROTEIN BAND 1 0.6 g/dL (NONE DETECTED); ALBUMIN 3.7 g/dL (3.8-4.8); ALPHA 1 GLOBULIN 0.3 g/dL (0.2-0.3); ALPHA 2 GLOBULIN 0.7 g/dL (0.5-0.9); BETA 1 GLOBULIN 0.4 g/dL (0.4-0.6); BETA 2 GLOBULIN 0.3 g/dL (0.2-0.5); GAMMA GLOBULIN 1.2 g/dL (0.8-1.7)
--- NOTE | 2021-02-28 15:19 | ONC FU_ITS ---
Dr. Solorzano Patient Follow-Up Note Patient: Yluisa Kinney Unit #: [id number]: 1960 Dicatated By: Robin Solorzano M.D.Date of Visit:Feb 25, 2021 Onc Med Follow-up/Prog Note Chief Complaint: Waldenstrom macroglobulinemia. History of Present Illness: This is a 60 year-old woman with Waldenstrom macroglobulinemia, presenting with lymphocytosis, anemia, and splenomegly in association with IgM monoclonal gammopathy. She had been seeing Dr. Jasso in neurology for peripheral neuropathy symptoms. She had been diagnosed with bilateral carpal tunnel syndrome and lumbar radiculopathy. On 09/26/2019 she had a follow-up outpatient visit with Lucy Dean. Her laboratory studies included CBC showing hemoglobin 9.7 g and hematocrit 31.5%. The red cell indices were normal. The white blood cell count was elevated 14,900 with the differential showing 23% granulocytes, 68% lymphocytes, and 7% monocytes. The platelet count was normal at 165,000. Comprehensive metabolic profile showed borderline renal function with BUN 15 and creatinine 1.1 mg/dL. The albumin was normal at 4.2 g/dL with calculated serum globulin elevated at 4.4 g/dL. The liver enzymes were normal. Sed rate and CRP levels were normal. TSH was borderline at 4.74 ???IUl/mL. B12 was normal at 568 pg/mL. Folate was greater than 24.0 ng/mL. The serum iron studies showed slightly low transferrin saturation at 18%. Ferritin was normal at 65 ng/mL. Protein electrophoresis showed a monoclonal protein band quantitating at 1.2 g/dL. Immunofixation showed IgM lambda. I had seen her initially on 10/31/2019. She was noted to have a palpable spleen, but there was no peripheral lymphadenopathy noted. Her repeat CBC showed hemoglobin 9.9 g, white blood cell count 17,000, and platelet count 124,000. The differential showed 70% lymphocytes, 18% neutrophils, 8% monocytes, and 1% eosinophils. Comprehensive metabolic profile was unremarkable except for slightly elevated SGOT at 46/32 U/L. LDH was just slightly elevated at 231/214 U/L. Protein electrophoresis showed an M band quantitating at 1.1 g/dL. The quantitative immunoglobulins included IgG elevated at 1464/230 mg/dL, IgG normal at 1129 mg/dL, and IgA normal at 113 mg/dL. The free light chain assay showed elevated lambda light chain at 53.3 mg/L, kappa light chain 33.8 mg/L and kappa/lambda ratio within the normal range at 0.63. A whole blood flow cytometry on 11/06/2019 showed on monotypic B-cell population which was positive for CD19, CD20, and CD22. There was dim/partial positivity to FMC7 and CD25. A subset showed surface lambda light chain restriction, but the remaining population appeared to be light chain negative. The monotypic B cells were negative for CD5, CD10, CD23, CD11c, CD103, CD123, CD200, CD38, and CD34. The phenotype was felt to be nonspecific. Staging CT scans of the chest, abdomen, and pelvis on 11/14/2019 showed prominent left axillary lymph nodes, the largest measuring 10 mm, an enlarged celiac axis lymph node measuring 11.5 mm, a prominent left periaortic lymph node measuring 7 mm, and prominent inguinal lymph nodes measuring up to 10 mm. The spleen was enlarged measuring 13.1 cm. The right hepatic lobe was noted to be enlarged, but the liver otherwise appeared normal. She underwent bone marrow aspiration/biopsy on 12/05/2019. The interpretation was limited due to the bone marrow aspirate specimens having been hemodiluted without cellular spicules. Bone marrow was noted to be hypercellular on the biopsy specimen, averaging 60 to 90% cellularity. An extensive interstitial and diffuse lymphoid infiltrate was noted to involve a high proportion of the marrow space, estimated at 70 to 80%. The lymphoid cells were noted to be small and round with clumped nuclear chromatin. There was evidence of plasmacytic differentiation. The flow cytometry showed nonspecific phenotype, similar to the whole blood specimen. Iron stores were noted to be reduced, but not absent. Overall, the findings were not definitive, but they were suggestive of lymphoplasmacytic lymphoma. The MYD88 mutation was detected, consistent with Waldenstrom macroglobulinemia. Her other medical illnesses includehypertension, hyperlipidemia, fibromyalgia, and degenerative arthritis/degenerative disease of the spine. She has had multiple surgeries on both the cervical and lumbar spine. She reportedly was found to be positive for the Factor V Leiden mutation. She has history of smoking for 30 years, up to 2 packs of cigarettes daily. She quit smoking in 2006. INTERIM HISTORY: On 01/13/2020 she began a course of treatment with rituximab in combination with ibrutinib 420 mg daily. She completed the initial 4 weekly infusions of rituximab with no adverse effects. She then continued the ibrutinib at 420 mg daily. As of her follow-up visit on 03/04/2020 there had been a significant decline in her M protein, to 0.7 g/dL, and there also was significant improvement in the splenomegaly. There was not a significant change in her clinical status. She then continued ibrutinib 420 mg daily, which she tolerated well. As of her follow-up visit on 05/04/2020 her repeat protein electrophoresis showed residual M protein quantitating at 0.7 g/dL. She began her second course of rituximab administered weekly for 4 weeks. She completed her week 4 treatment on 05/25/2020. She tolerated it very well, and she then continued her treatment with ibrutinib 420 mg daily. On 08/13/2020 she was admitted to the hospital with pneumonia, having presented to the emergency room with mental status changes. She improved clinically on antibiotic therapy. She was discharged home on 08/17/2020. At that point she had adequate oxygen saturation on room air. However, on outpatient follow-up with Lucy Dean she apparently was found to be significantly hypoxic, and she was then started on home oxygen. At her follow-up visit on 09/24/2020 her ibrutinib was temporarily put on hold due to visual changes. Ultimately these were felt to be more likely due to gabapentin. Her ibrutinib was supposed to have been restarted, but for some reason that did not happen, and she remained off treatment. I have been seeing her for a follow-up visit on 10/27/2020. At that point her blood counts were adequate. She remained oxygen dependent, but she otherwise appeared stable clinically, and I did have her restart the ibrutinib at 420 mg daily. During subsequent follow-up she had complained of worsening problems with balance/equilibrium. As a precaution, I did have her stop the ibrutinib. Her restaging CT scans on 01/25/2021 showed no lymphadenopathy within the chest, abdomen, or pelvis. There were emphysematous changes, but no suspicious pulmonary mass or nodule was noted. There was just mild plaque atelectasis in the lingula and left lower lobe. Some wall thickening of the stomach was felt to possibly reflect gastritis or underdistention of the stomach. Her brain MRI on 02/02/2021 showed mild small vessel changes and moderate parenchymal volume loss. Chronic lacunar infarcts in the cerebellum appeared unchanged. There was no evidence of mass lesion or other acute pathology. In the meantime, she also was seen for follow-up by Dr. Rosario. 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 She is seen for a follow-up visit. She continues to complain that she feels tired. She is able to do housework, though. Her ECOG score is 1. She has not been eating much, but she has gained weight. She does not have fever or night sweats. She has some sinus drainage and sore throat. She has cough productive of brown or green-colored sputum. She is short of breath with activity. She is using oxygen as needed. She occasionally has chest pain. She has no GI or complaints. She has back pain all the time. She complains of having headache and she has ongoing problems with balance. She has numbness/tingling in her hands and feet. Medications: Allopurinol 1 Tablet (of 300 mg) Oral daily, Atorvastatin Calcium 1 Tablet (of 20 mg) Oral at bedtime, B-1 1 Tablet (of 100 mg) Oral daily, Calcium Citrate + D 1 Tablet (of 315-200 mg - Units) Oral b.i.d., Cyclobenzaprine HCl 1 - 2 Tablet (of 10 mg) Oral b.i.d., Ferrous Sulfate 1 Tablet (of 325 (65 fe) mg) Oral daily, Folic Acid 1 Tablet (of 1 mg) Oral daily, Imodium A-D 1 Capsule (of 2 mg) Oral daily, Levothyroxine Sodium 1 Tablet (of 50 mcg) Oral daily, LORazepam 1 - 2 Tablet (of 0.5 mg) Oral t.i.d., Metoprolol Tartrate (25 mg) Tablet Oral Take as Directed, Multivitamin Adult 1 Tablet Oral daily, Pantoprazole Sodium 1 Tablet (of 40 mg) Tablet, enteric coated Oral daily, Prochlorperazine Maleate 1 Tablet (of 10 mg) Oral q 4 hours PRN, rOPINIRole HCl 2 Tablet (of 0.25 mg) Oral at bedtime, Stool Softener 1 Tablet (of 100 mg) Oral daily, traZODone HCl 0.5 - 1 Tablet (of 50 mg) Oral at bedtime, Vitamin C 1 Capsule (of 500 mg) Oral daily Allergies: Cortisone Acetate, Demerol, Dilaudid, Haldol, and Morphine Sulfate. Vital Signs: Performed on Feb 25, 2021 16:17 Height - 59.00 in Weight - 118 lbs (HIGH) BSA - 1.47 sq.m BMI - 23.83 Temperature - 97.9 F (LOW) Pulse - 90 /min Respiration - 18 /min BP - 116/72 mm(hg) O2 Sat - 94 % (LOW) Pain - 5 Fatigue - 6 Physical Examination: Constitutional - She appears chronically ill, Eyes - Sclerae nonicteric. Conjunctivae clear, ENMT - No lesions noted in the oral cavity, Hematologic/Lymphatic - No cervical, clavicular, or axillary adenopathy, Respiratory - Lungs sound clear with diminished air movement bilaterally, Cardiovascular - Heart rhythm is regular. There is no murmur, gallop, or rub noted, Abdomen - Soft. Liver is not enlarged. Spleen is not palpable. There is no abdominal mass or ascites noted and there is no inguinal adenopathy, Extremities - No edema, Neurologic - No focal neurologic deficits noted. Lab/Imaging: Test performed on Feb 25, 2021 14:07 LDH (Total) 219 U/L Sodium 133 mmol/L Potassium 3.6 mmol/L Chloride 97 mmol/L CO2 27 mmol/L Anion Gap 12.6 BUN 11 mg/dL Creatinine 0.8 mg/dL Cr Clearance (Est) 62.7900 mL/min eGFR 73.4 mL/min Glucose 104 mg/dL Osmolality - Calculated 276 mOsm/kg Calcium 9.4 mg/dL Protein, Total 6.6 g/dL Albumin 4.2 g/dL Globulin 2.4 g/dL Bilirubin, Total 0.3 mg/dL ALT (SGPT) 23 U/L AST (SGOT) 46 U/L Alkaline Phosphatase 65 IU/L ESR (Sed Rate) 9 mm/hr WBC 6.3 10 3/uL RBC 3.95 10 6/uL HGB 12.0 g/dL HCT 37.0 % MCV 93.7 fL MCH 30.4 pg MCHC 32.4 g/dL RDW 13.4 % Platelet Count 247 10 3/cmm MPV 10.4 fL Neutrophils 2.56 10 3/uL Lymphocytes 2.0 10 3/uL Monocytes 1.1 10 3/uL Eosinophils 0.6 10 3/uL Basophils 0.1 10 3/uL Neutrophil % 40.7 % Lymphocyte % 31.4 % Monocyte % 16.8 % Eosinophil % 9.5 % Basophils % 1.3 % NRBC % 0 % IgG 758 mg/dL IgA 87 mg/dL IgM 691 mg/dL Problem List: 1. Waldenstr???m macroglobulinemia. 2. Peripheral neuropathy. 3. Hypertension. 4. Hyperlipidemia. 5. Fibromyalgia. 6. Degenerative arthritis and degenerative disease of the spine. She has associated cervical spinal canal stenosis. 7. She was reportedly found to be positive for the Factor V Leiden mutation. Problems Addressed with this Encounter and Plan: 1. Patient with lymphoproliferative disorder with associated IgM monoclonal gammopathy. 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 The MYD88 mutation was detected, consistent with Waldenstr???m macroglobulinemia. She has significant peripheral neuropathy, which I have assumed to be related. Her treatment has included two 4-week courses of weekly rituximab, administered in January and in May 2020, together with ibrutinib 420 mg daily. Overall, she has tolerated the treatment well. She had a very good objective response, though without significant change in her clinical status. In September 2020 her ibrutinib was temporarily put on hold due to visual changes, but these were ultimately felt to be more likely associated with gabapentin. As of her follow-up visit on 10/27/2020 when she restarted ibrutinib at 420 mg daily. However, it was subsequently put on hold again due worsening equilibrium/balance. She had follow-up with Dr. 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 Overall, despite having a significant response to the treatment, her peripheral neuropathy symptoms have persisted and she has continued to have fairly marginal performance status. However, in the absence of any evidence of progression of the Waldenstrom macroglobulinemia, she will restart ibrutinib 420 mg daily. She will be scheduled for a follow-up visit in 1 month. 2. In August 2020 she was admitted to the hospital with community-acquired pneumonia. She improved on antibiotic therapy. During subsequent follow-up she was found to be hypoxic, and she was then started on home oxygen. Her CT pulmonary angiogram in 11/06/2020 showed no evidence of pulmonary embolism. There were chronic emphysematous changes, but there were no acute pulmonary infiltrates noted and there was no mediastinal or hilar adenopathy noted. During follow-up she has been showing gradual improvement in her pulmonary function. She is now using oxygen only as needed. Signed By: Robin Solorzano M.D. <<Signature on File>>
== END 2021-02-25 13:15 | disposition home or self-care (01) ==
PROVIDERS: PCP Physician Assistant; Visit Provider Internal Medicine Medical Oncology
DX: C88.0 Waldenstrom macroglobulinemia (principal); G62.9 Polyneuropathy, unspecified; I10 Essential (primary) hypertension; E78.5 Hyperlipidemia, unspecified; M79.7 Fibromyalgia; M50.31 Other cervical disc degeneration, high cervical region; M48.02 Spinal stenosis, cervical region; D68.51 Activated protein C resistance; Z79.899 Other long term (current) drug therapy; Z92.21 Personal history of antineoplastic chemotherapy
CPT/HCPCS: 36415; 80053; 82784; 83615; 84155; 84165; 85025; 85651; 99214

== ENCOUNTER 2021-04-20 08:08 | Outpatient (CLI) | payer MEDICARE, MEDICAID, SELFPAY ==
[2021-04-20 09:43] LABS: Basophils # 0.1 10^3/uL (0.0-0.1); Basophils % 1.9 %; Eosinophils # 0.1 10^3/uL (0.0-0.8); Eosinophils % 1.4 %; Hematocrit 36.1 % (37.0-47.0); Hemoglobin 11.9 g/dL (11.5-15.3); Lymphocytes # 2.1 10^3/uL (0.8-4.8); Lymphocytes % 33.3 %; Mean Corpuscular Hemoglobin 30.3 pg (28.0-34.0); Mean Corpuscular Volume 91.9 fl (81-99); Mean Platelet Volume 11.9 fL (7.4-10.4); Monocytes # 1.4 10^3/uL (0.2-0.9); Monocytes % 22.1 %; Neutrophils # 2.63 10^3/uL (1.8-7.7); Neutrophils % 40.8 %; Nucleated Red Blood Cells % 0 %; Platelet Count 206 10^3/cmm (130-400); Red Blood Count 3.93 10^6/uL (4.1-5.3); Red Cell Distribution Width 13.2 % (12.1-15.1); White Blood Count 6.4 10^3/uL (4.0-10.0)
[2021-04-20 10:08] LABS: Alanine Aminotransferase 33 U/L (0-33); Alkaline Phosphatase 68 IU/L (35-105); Anion Gap 14.3 (5-19); Aspartate Amino Transferase 53 U/L (0-32); Blood Urea Nitrogen 11 mg/dL (6-20); Calcium 9.2 mg/dL (8.5-10.5); Carbon Dioxide 28 mmol/L (22-29); Chloride 93 mmol/L (98-107); Glomerular Filtration Rate 56.7 mL/min (90-130); Glucose 86 mg/dL (65-115); Immunoglobulin IGA 98 mg/dL (70-400); Immunoglobulin IGG 764 mg/dL (700-1600); Lactate Dehydrogenase 274 U/L (135-214); Osmolality Calculated 273 mOsm/kg (285-295); Potassium 3.3 mmol/L (3.5-5.1); Sodium 132 mmol/L (136-145); Total Bilirubin 0.4 mg/dL (0.15-1.2)
[2021-04-20 10:21] LABS: Immunoglobulin IGM 690 mg/dL (40-230)
--- NOTE | 2021-04-20 11:28 | ONC FU_ITS ---
Dr. Solorzano Patient Follow-Up Note Patient: Yulisa Kinney Unit #: [id number]: [id number] Dicatated By: Robin Solorzano M.D.Date of Visit:Apr 20, 2021 Onc Med Follow-up/Prog Note Chief Complaint: Waldenstrom macroglobulinemia. History of Present Illness: This is a 60 year-old woman with Waldenstrom macroglobulinemia, presenting with lymphocytosis, anemia, and splenomegly in association with IgM monoclonal gammopathy. She had been seeing Dr. Jasso in neurology for peripheral neuropathy symptoms. She had been diagnosed with bilateral carpal tunnel syndrome and lumbar radiculopathy. On 09/26/2019 she had a follow-up outpatient visit with Lucy Dean. Her laboratory studies included CBC showing hemoglobin 9.7 g and hematocrit 31.5%. The red cell indices were normal. The white blood cell count was elevated 14,900 with the differential showing 23% granulocytes, 68% lymphocytes, and 7% monocytes. The platelet count was normal at 165,000. Comprehensive metabolic profile showed borderline renal function with BUN 15 and creatinine 1.1 mg/dL. The albumin was normal at 4.2 g/dL with calculated serum globulin elevated at 4.4 g/dL. The liver enzymes were normal. Sed rate and CRP levels were normal. TSH was borderline at 4.74 ???IUl/mL. B12 was normal at 568 pg/mL. Folate was greater than 24.0 ng/mL. The serum iron studies showed slightly low transferrin saturation at 18%. Ferritin was normal at 65 ng/mL. Protein electrophoresis showed a monoclonal protein band quantitating at 1.2 g/dL. Immunofixation showed IgM lambda. I had seen her initially on 10/31/2019. She was noted to have a palpable spleen, but there was no peripheral lymphadenopathy noted. Her repeat CBC showed hemoglobin 9.9 g, white blood cell count 17,000, and platelet count 124,000. The differential showed 70% lymphocytes, 18% neutrophils, 8% monocytes, and 1% eosinophils. Comprehensive metabolic profile was unremarkable except for slightly elevated SGOT at 46/32 U/L. LDH was just slightly elevated at 231/214 U/L. Protein electrophoresis showed an M band quantitating at 1.1 g/dL. The quantitative immunoglobulins included IgG elevated at 1464/230 mg/dL, IgG normal at 1129 mg/dL, and IgA normal at 113 mg/dL. The free light chain assay showed elevated lambda light chain at 53.3 mg/L, kappa light chain 33.8 mg/L and kappa/lambda ratio within the normal range at 0.63. A whole blood flow cytometry on 11/06/2019 showed on monotypic B-cell population which was positive for CD19, CD20, and CD22. There was dim/partial positivity to FMC7 and CD25. A subset showed surface lambda light chain restriction, but the remaining population appeared to be light chain negative. The monotypic B cells were negative for CD5, CD10, CD23, CD11c, CD103, CD123, CD200, CD38, and CD34. The phenotype was felt to be nonspecific. Staging CT scans of the chest, abdomen, and pelvis on 11/14/2019 showed prominent left axillary lymph nodes, the largest measuring 10 mm, an enlarged celiac axis lymph node measuring 11.5 mm, a prominent left periaortic lymph node measuring 7 mm, and prominent inguinal lymph nodes measuring up to 10 mm. The spleen was enlarged measuring 13.1 cm. The right hepatic lobe was noted to be enlarged, but the liver otherwise appeared normal. She underwent bone marrow aspiration/biopsy on 12/05/2019. The interpretation was limited due to the bone marrow aspirate specimens having been hemodiluted without cellular spicules. Bone marrow was noted to be hypercellular on the biopsy specimen, averaging 60 to 90% cellularity. An extensive interstitial and diffuse lymphoid infiltrate was noted to involve a high proportion of the marrow space, estimated at 70 to 80%. The lymphoid cells were noted to be small and round with clumped nuclear chromatin. There was evidence of plasmacytic differentiation. The flow cytometry showed nonspecific phenotype, similar to the whole blood specimen. Iron stores were noted to be reduced, but not absent. Overall, the findings were not definitive, but they were suggestive of lymphoplasmacytic lymphoma. The MYD88 mutation was detected, consistent with Waldenstrom macroglobulinemia. Her other medical illnesses includehypertension, hyperlipidemia, fibromyalgia, and degenerative arthritis/degenerative disease of the spine. She has had multiple surgeries on both the cervical and lumbar spine. She reportedly was found to be positive for the Factor V Leiden mutation. She has history of smoking for 30 years, up to 2 packs of cigarettes daily. She quit smoking in 2006. INTERIM HISTORY: On 01/13/2020 she began a course of treatment with rituximab in combination with ibrutinib 420 mg daily. She completed the initial 4 weekly infusions of rituximab with no adverse effects. She then continued the ibrutinib at 420 mg daily. As of her follow-up visit on 03/04/2020 there had been a significant decline in her M protein, to 0.7 g/dL, and there also was significant improvement in the splenomegaly. There was not a significant change in her clinical status. She then continued ibrutinib 420 mg daily, which she tolerated well. As of her follow-up visit on 05/04/2020 her repeat protein electrophoresis showed residual M protein quantitating at 0.7 g/dL. She began her second course of rituximab administered weekly for 4 weeks. She completed her week 4 treatment on 05/25/2020. She tolerated it very well, and she then continued her treatment with ibrutinib 420 mg daily. On 08/13/2020 she was admitted to the hospital with pneumonia, having presented to the emergency room with mental status changes. She improved clinically on antibiotic therapy. She was discharged home on 08/17/2020. At that point she had adequate oxygen saturation on room air. However, on outpatient follow-up with Lucy Dean she apparently was found to be significantly hypoxic, and she was then started on home oxygen. At her follow-up visit on 09/24/2020 her ibrutinib was temporarily put on hold due to visual changes. Ultimately these were felt to be more likely due to gabapentin. Her ibrutinib was supposed to have been restarted, but for some reason that did not happen, and she remained off treatment. I have been seeing her for a follow-up visit on 10/27/2020. At that point her blood counts were adequate. She remained oxygen dependent, but she otherwise appeared stable clinically, and I did have her restart the ibrutinib at 420 mg daily. During subsequent follow-up she had complained of worsening problems with balance/equilibrium. As a precaution, I did have her stop the ibrutinib. Her restaging CT scans on 01/25/2021 showed no lymphadenopathy within the chest, abdomen, or pelvis. There were emphysematous changes, but no suspicious pulmonary mass or nodule was noted. There was just mild plaque atelectasis in the lingula and left lower lobe. Some wall thickening of the stomach was felt to possibly reflect gastritis or underdistention of the stomach. Her brain MRI on 02/02/2021 showed mild small vessel changes and moderate parenchymal volume loss. Chronic lacunar infarcts in the cerebellum appeared unchanged. There was no evidence of mass lesion or other acute pathology. In the meantime, she also was seen for follow-up by Dr. Rosario. 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 As of her follow-up visit on 02/25/2021 she restarted treatment with ibrutinib 420 mg daily. She is seen for a follow-up visit. She has been feeling okay. She is completely off oxygen now. She has ongoing issues with balance, and she has been prone to falling. She has persistent pain in her right knee following a fall several weeks ago. Right knee x-ray on 03/09/2021 showed mild degenerative changes and a small prepatellar effusion. She has a cane and a walker, which she does not use consistently. She has limited activity, but she is able to do light work. ECOG score is 1. She does not have good appetite, but she says she does eat. She has not had fever. She sometimes has sweating at night. She has chronic sinus symptoms. She has not had sore mouth or throat. She does not complain of cough and she is not having shortness of breath or chest pain. She continues to complain of nausea. Bowel and bladder function have been okay. She also has back pain, which is chronic. She does not complain of headache. Her neuropathy symptoms are the same. Medications: Allopurinol 1 Tablet (of 300 mg) Oral daily, Atorvastatin Calcium 1 Tablet (of 20 mg) Oral at bedtime, B-1 1 Tablet (of 100 mg) Oral daily, Calcium Citrate + D 1 Tablet (of 315-200 mg - Units) Oral b.i.d., Cyclobenzaprine HCl 1 - 2 Tablet (of 10 mg) Oral b.i.d., Ferrous Sulfate 1 Tablet (of 325 (65 fe) mg) Oral daily, Folic Acid 1 Tablet (of 1 mg) Oral daily, Imodium A-D 1 Capsule (of 2 mg) Oral daily, Levothyroxine Sodium 1 Tablet (of 50 mcg) Oral daily, LORazepam 1 - 2 Tablet (of 0.5 mg) Oral t.i.d., Metoprolol Tartrate (25 mg) Tablet Oral Take as Directed, Multivitamin Adult 1 Tablet Oral daily, Pantoprazole Sodium 1 Tablet (of 40 mg) Tablet, enteric coated Oral daily, Prochlorperazine Maleate 1 Tablet (of 10 mg) Oral q 4 hours PRN, rOPINIRole HCl 2 Tablet (of 0.25 mg) Oral at bedtime, Stool Softener 1 Tablet (of 100 mg) Oral daily, traZODone HCl 0.5 - 1 Tablet (of 50 mg) Oral at bedtime, Vitamin C 1 Capsule (of 500 mg) Oral daily Allergies: Cortisone Acetate, Demerol, Dilaudid, Haldol, and Morphine Sulfate. Vital Signs: Performed on Apr 20, 2021 10:45 Height - 59.00 in Weight - 116.2 lbs (LOW) BSA - 1.46 sq.m BMI - 23.47 Temperature - 98.1 F (LOW) Pulse - 79 /min Respiration - 18 /min BP - 127/74 mm(hg) O2 Sat - 98 % Pain - 6 Fatigue - 5 Physical Examination: Constitutional - She appears somewhat weak generally, Eyes - Sclerae nonicteric. Conjunctivae clear, ENMT - No lesions noted in the oral cavity, Hematologic/Lymphatic - No cervical, clavicular, or axillary adenopathy, Respiratory - Lungs sound clear. She has pretty good air movement bilaterally, Cardiovascular - Heart rhythm is regular. There is no murmur, gallop, or rub noted, Abdomen - Soft. Liver is not enlarged. Spleen is not palpable. There is no abdominal mass or ascites noted and there is no inguinal adenopathy, Extremities - No edema. There is some mild swelling at the right knee joint, Neurologic - No focal neurologic deficits noted. Lab/Imaging: Test performed on Apr 20, 2021 08:28 LDH (Total) 274 U/L Sodium 132 mmol/L Potassium 3.3 mmol/L Chloride 93 mmol/L CO2 28 mmol/L Anion Gap 14.3 BUN 11 mg/dL Creatinine 1.0 mg/dL Cr Clearance (Est) 50.2300 mL/min eGFR 56.7 mL/min Glucose 86 mg/dL Osmolality - Calculated 273 mOsm/kg Calcium 9.2 mg/dL Protein, Total 7.0 g/dL Albumin 4.0 g/dL Globulin 3.0 g/dL Bilirubin, Total 0.4 mg/dL ALT (SGPT) 33 U/L AST (SGOT) 53 U/L Alkaline Phosphatase 68 IU/L WBC 6.4 10 3/uL RBC 3.93 10 6/uL HGB 11.9 g/dL HCT 36.1 % MCV 91.9 fl MCH 30.3 pg MCHC 33.0 g/dL RDW 13.2 % Platelet Count 206 10 3/cmm MPV 11.9 fL Neutrophils 2.63 10 3/uL Lymphocytes 2.1 10 3/uL Monocytes 1.4 10 3/uL Eosinophils 0.1 10 3/uL Basophils 0.1 10 3/uL Neutrophil % 40.8 % Lymphocyte % 33.3 % Monocyte % 22.1 % Eosinophil % 1.4 % Basophils % 1.9 % NRBC % 0 % IgA 98 mg/dL Problem List: 1. Waldenstr???m macroglobulinemia. 2. Peripheral neuropathy. 3. Hypertension. 4. Hyperlipidemia. 5. Fibromyalgia. 6. Degenerative arthritis and degenerative disease of the spine. She has associated cervical spinal canal stenosis. 7. She was reportedly found to be positive for the Factor V Leiden mutation. Problems Addressed with this Encounter and Plan: 1. Patient with lymphoproliferative disorder with associated IgM monoclonal gammopathy. 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 The MYD88 mutation was detected, consistent with Waldenstr???m macroglobulinemia. She has significant peripheral neuropathy, which I have assumed to be related. Her treatment has included two 4-week courses of weekly rituximab, administered in January and in May 2020, together with ibrutinib 420 mg daily. Overall, she has tolerated the treatment well. She had a very good objective response, though without significant change in her clinical status. In September 2020 her ibrutinib was temporarily put on hold due to visual changes, but these were ultimately felt to be more likely associated with gabapentin. As of her follow-up visit on 10/27/2020 when she restarted ibrutinib at 420 mg daily. However, it was subsequently put on hold again due worsening equilibrium/balance. She had follow-up with Dr. 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 As of her follow-up visit on 02/25/2021 she restarted ibrutinib 420 mg daily. Unfortunately, despite the improvement in her IgM level, she has continued to have significant peripheral neuropathy symptoms and she continues to have somewhat marginal performance status. However, she seems to tolerate the ibrutinib very well and in the absence of any evidence of disease progression, she will continue the ibrutinib at 420 mg daily. Her blood counts will be monitored monthly. I will see her again in 3 months, or sooner as needed. 2. She has persistent right knee pain following a fall/injury last month. She will be scheduled for MRI of the right knee. She will have further evaluation as indicated. Signed By: Robin Solorzano M.D. <<Signature on File>>
[2021-04-21 07:03] LABS: PROTEIN, TOTAL 6.3 g/dL (6.1-8.1)
[2021-04-21 14:33] LABS: ABNORMAL PROTEIN BAND 1 0.5 g/dL (NONE DETECTED); ALBUMIN 3.7 g/dL (3.8-4.8); ALPHA 1 GLOBULIN 0.3 g/dL (0.2-0.3); ALPHA 2 GLOBULIN 0.6 g/dL (0.5-0.9); BETA 1 GLOBULIN 0.4 g/dL (0.4-0.6); BETA 2 GLOBULIN 0.3 g/dL (0.2-0.5)
== END 2021-04-20 08:09 | disposition home or self-care (01) ==
LOC: ONCMED 08:13
PROVIDERS: PCP Physician Assistant; Visit Provider Internal Medicine Medical Oncology
DX: C88.0 Waldenstrom macroglobulinemia (principal); D47.2 Monoclonal gammopathy; G62.9 Polyneuropathy, unspecified; I10 Essential (primary) hypertension; E78.5 Hyperlipidemia, unspecified; M79.7 Fibromyalgia; M50.30 Other cervical disc degeneration, unspecified cervical region; M48.02 Spinal stenosis, cervical region; D68.51 Activated protein C resistance; Z79.899 Other long term (current) drug therapy
CPT/HCPCS: 36415; 80053; 82784; 83615; 84155; 84165; 85025; 99214

== ENCOUNTER 2021-05-11 11:19 | Outpatient (CLI) | payer MEDICARE, MEDICAID, SELFPAY ==
--- NOTE | 2021-05-11 11:00 | MR_ITS ---
WS: [id number] MRI RIGHT KNEE HISTORY: MACROGLOBULINEMIA, RIGHT KNEE PAIN COMPARISON: 03/09/2021 knee radiograph. Anterior cruciate ligament: Intact. Posterior cruciate ligament: Intact. Medial collateral ligament: Increased fluid signal on both sides of the MCL. The ligament appears int act. Posterior lateral corner structures: Intact. Medial menisci: Horizontal tear in the posterior horn. Tear extends to the free edge and also the sup erior articular surface. Anterior horn is normal. Lateral meniscus: Mild intrasubstance degeneration in the anterior and posterior horns. No tear. Extensor mechanism: Distal quadriceps tendon and patellar tendons are intact. Fluid and soft tissue: Small suprapatellar joint effusion. There is also soft tissue edema surroundin g the knee. No Jacques's cyst. Osseous and articular structures: Patellofemoral compartment: Small amount of edema in the inferior patella. The underlying cartilage i s intact. Medial compartment: Mild narrowing of the medial compartment. Mild cartilaginous defects along the we ightbearing surface of the femoral condyle and mild thinning and fissuring along the tibial plateau. No marrow edema. Lateral compartment: Mild narrowing of the lateral compartment. No marrow edema. MR/MR knee RT wo con* [id number] IMPRESSION: 1. Horizontal tear posterior horn medial meniscus extends to the free edge and the superior articular surface. 2. Mild chondromalacia involving the weightbearing surface of the medial femor al condyle and tibial plateau. 3. Small amount of marrow edema in the inferior patella with no cartilage abno rmality. 4. Small joint effusion and mild soft tissue edema surrounding the knee. 5. Mild MCL sprain.
== END 2021-05-11 11:20 | disposition home or self-care (01) ==
PROVIDERS: PCP Physician Assistant; Visit Provider Internal Medicine Medical Oncology
DX: C88.0 Waldenstrom macroglobulinemia (principal); S83.411A Sprain of medial collateral ligament of right knee, initial encounter; M25.461 Effusion, right knee; R60.0 Localized edema; M94.261 Chondromalacia, right knee; S83.241A Other tear of medial meniscus, current injury, right knee, initial encounter; X58.XXXA Exposure to other specified factors, initial encounter
CPT/HCPCS: 73721

== ENCOUNTER 2021-05-21 10:17 | Outpatient (CLI) | payer MEDICARE, MEDICAID, SELFPAY ==
[2021-05-21 10:58] LABS: Basophils # 0.1 10^3/uL (0.0-0.1); Basophils % 1.3 %; Eosinophils # 0.1 10^3/uL (0.0-0.8); Eosinophils % 1.4 %; Hematocrit 36.2 % (37.0-47.0); Hemoglobin 11.9 g/dL (11.5-15.3); Lymphocytes % 35.4 %; Mean Corpuscular HGB Conc 32.9 g/dL (30.0-36.0); Mean Corpuscular Hemoglobin 30.4 pg (28.0-34.0); Mean Corpuscular Volume 92.6 fl (81-99); Mean Platelet Volume 12.1 fL (7.4-10.4); Monocytes # 1.4 10^3/uL (0.2-0.9); Monocytes % 24.5 %; Neutrophils # 2.06 10^3/uL (1.8-7.7); Neutrophils % 36.9 %; Nucleated Red Blood Cells % 0 %; Platelet Count 184 10^3/cmm (130-400); Red Blood Count 3.91 10^6/uL (4.1-5.3); Red Cell Distribution Width 13.3 % (12.1-15.1); White Blood Count 5.6 10^3/uL (4.0-10.0)
== END 2021-05-21 10:18 | disposition home or self-care (01) ==
LOC: ONCMED 10:19
PROVIDERS: PCP Physician Assistant; Visit Provider Internal Medicine Medical Oncology
DX: C88.0 Waldenstrom macroglobulinemia (principal); D47.2 Monoclonal gammopathy; Z79.899 Other long term (current) drug therapy
CPT/HCPCS: 36415; 85025

== ENCOUNTER → 2021-06-18 10:00 | Outpatient (BNVA) | payer MEDICARE, MEDICAID, SELFPAY | PROVIDERS: PCP Physician Assistant; Visit Provider Orthopaedic Surgery | DX: S83.241A Other tear of medial meniscus, current injury, right knee, initial encounter (principal); Z20.822 Contact with and (suspected) exposure to COVID-19; X58.XXXA Exposure to other specified factors, initial encounter | CPT/HCPCS: 87635 ==

== ENCOUNTER 2021-06-24 12:02 | Day surgery (SDC) | payer MEDICARE, MEDICAID, SELFPAY ==
[2021-06-23 13:40] VITALS: BMI 22.4
[2021-06-24] VITALS (9 sets, daily range): BP systolic 137–178; BP diastolic 84–99; PULSE 84–96; RESP 14–18; TEMP 36.1–36.7; O2SAT 96–100
--- NOTE | 2021-06-24 12:56 | ANES.PREANE2 ---
Pre-Anesthetic Assessment Pre-Anesthetic Assessment: Height/Weight: Height 1.5 m Weight 50.349 kg Temp Pulse Resp BP Pulse Ox 97.3 F L 84 18 178/99 99 06/24/21 12:39 06/24/21 12:39 06/24/21 12:39 06/24/21 12:39 06/24/21 12:39 Proposed Procedure: Operation Date: 06/24/21 13:35 Proposed Procedures p Knee Arthroscopy 52423 S83.241A(Right) - Damián Perez MD Was Beta Emilie taken within 24 hours: Yes Was Clonidine taken within 24 hours: N/A Last intake: Intake Last Liquid Date 06/23/21 Last Liquid Time 07:30 Last Solid Date 06/23/21 Last Solid Time 20:30 Social: Social History: Tobacco and No alcohol Exam: Pre-Anes Outpt Exam: alert, oriented x 3, clear to auscultation bilaterally and regular rate & rhythm Airway: Submandibular: WNL Cervical ROM: WNL MP: 2 Dentition: False Pulmonary: Pulmonary: COPD CV/HEM: CV/HEM: HTN Comments: leukemia GI: GI: GERD Metabolic: Metabolic: Thyroid Musc/skel: Musc/skel: Lower Back Pain and OA/DJD Neuropsych: Neuropsych: Anxiety Anesthetic Plan: ASA status: 3 Anesthesia: General Risk of > 500 ml blood loss (7ml/kg in children): No PFSH Anesthesia PFSH: Medical History (Updated 06/02/21 @ 16:06 by Damián Perez MD) Anxiety Cervical post-laminectomy syndrome Degenerative arthritis Fibromyalgia Hyperlipidemia Hypertension Hypothyroidism IgM monoclonal gammopathy of uncertain significance Lumbar post-laminectomy syndrome Peripheral neuropathy Restless leg syndrome Waldenstrom macroglobulinemia Surgical History (Updated 06/02/21 @ 13:11 by Andrews Landeros LPN) History of cervical spinal surgery [facility]: 02/14/2017 Posterolateral cervical fusion C2-C6 03/02/2016 C3-C4 ACDFF, removal of prior anterior cervical plate, C4-C5 2004 C4-C5 ACDFF All operative reports scanned to chart History of section, low transverse X2 History of facial surgery 1992 Following trauma, x3 History of lumbar surgery 2013, 2011 and 2010 [facility]: Lumbar fusion/fixation History of shoulder surgery Right x2 Family History Mother Lung disease Father Myocardial infarction Hypertension Diabetes Social History Smoking and tobacco status: former smoker (2006 ) Alcohol intake: current Alcohol intake frequency: few times a week Household members: significant other Marital status: Life Partner Current occupational status: disabled History of recent travel: No Data Anesthesia Cardiac Studies: No Data to Display
[2021-06-24] MEDS: sodium chloride 0.9% 1,000 ML 30 ML IV (13:10)
--- NOTE | 2021-06-24 13:26 | W.PM.OPSUD ---
Surgery/Procedure H&P Update DATE OF PROCEDURE: June 24, 2021 DATE H&P PERFORMED: 06/02/21 H&P UPDATE INFORMATION: I have reviewed H&P completed within last 30 days PLANNED PROCEDURE: Operation Date: 06/24/21 13:35 Proposed Procedures p Knee Arthroscopy 99421 S83.241A(Right) - Damián Perez MD
[2021-06-24 14:00] LABS: Basophils # 0.1 10^3/uL (0.0-0.1); Basophils % 2.6 %; Eosinophils # 0.1 10^3/uL (0.0-0.8); Eosinophils % 2.2 %; Hematocrit 36.7 % (37.0-47.0); Hemoglobin 11.9 g/dL (11.5-15.3); Lymphocytes # 1.9 10^3/uL (0.8-4.8); Lymphocytes % 41.4 %; Mean Corpuscular HGB Conc 32.4 g/dL (30.0-36.0); Mean Corpuscular Hemoglobin 29.8 pg (28.0-34.0); Mean Platelet Volume 11.6 fL (7.4-10.4); Monocytes # 1.2 10^3/uL (0.2-0.9); Monocytes % 25.6 %; Neutrophils # 1.28 10^3/uL (1.8-7.7); Neutrophils % 27.8 %; Nucleated Red Blood Cells % 0 %; Platelet Count 193 10^3/cmm (130-400); Red Blood Count 3.99 10^6/uL (4.1-5.3); Red Cell Distribution Width 13.7 % (12.1-15.1); White Blood Count 4.6 10^3/uL (4.0-10.0)
--- NOTE | 2021-06-24 14:39 | PM.OP ---
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 She had unstable flaps of fissures and thinning over the weightbearing aspect of the entirety of her medial femoral condyle but no point is exposed subchondral bone identified. Cartilage loss was thought to exceed 50% of the thickness Condition: stable Disposition: PACU Procedure: The patient was taken to the operating room and given a general anesthesia. She is prepped and draped in the supine position with a tourniquet on the right thigh. A timeout was performed. The knee was prepped and draped in the usual fashion. The knee was infiltrated with 30 cc of 0.5% Marcaine. The knee was entered through the standard inferior medial and inferolateral portals. The diagnostic portion arthroscopy was performed. Initially an incisor shaver and [employer] Werewolf probe were used to debride the meniscus back to a stable rim. This involved removal approximately 50% of the medial meniscus. Attention was then focused on the medial femoral condyle. Utilized incisor shaver and werewolf unstable flaps and fissures were peripherally debrided. At no point was any exposed subchondral bone noted. The knee was irrigated with saline. Portals were closed with 3-0 Prolene. Sterile dressings were applied. The patient was extubated and taken to recovery in stable condition.
[2021-06-24] MEDS: HYDROcodone-acetaminophen 5-325 mg Tablet 1 TAB PO (15:29)
--- NOTE | 2021-06-24 16:13 | ANE.PACU2 ---
Inpatient post-anesthesia follow up: Airway intact: Yes Vital signs: Temperature 98.0 F Pulse Rate 96 Respiratory Rate 14 Blood Pressure 137/84 Pulse Oximetry 96 Oxygen Delivery Me thod Room Air Oxygen Flow Rate Fraction of Inspir ed Oxygen Hydration adequate: Yes Nausea and vomiting: No Pain level: 2 Mental status: Baseline
== END 2021-06-24 16:00 | disposition home or self-care (01) ==
PROVIDERS: Internal Medicine Medical Oncology; PCP Physician Assistant; Visit Provider Orthopaedic Surgery
PROC: (CPT 29870; principal; 2021-06-24 13:25)
DX: S83.241A Other tear of medial meniscus, current injury, right knee, initial encounter (principal); X58.XXXA Exposure to other specified factors, initial encounter; Z91.81 History of falling; M94.261 Chondromalacia, right knee; J44.9 Chronic obstructive pulmonary disease, unspecified; I10 Essential (primary) hypertension; K21.9 Gastro-esophageal reflux disease without esophagitis; F41.9 Anxiety disorder, unspecified; M19.90 Unspecified osteoarthritis, unspecified site; M79.7 Fibromyalgia; E78.5 Hyperlipidemia, unspecified; Z98.1 Arthrodesis status; Z82.49 Family history of ischemic heart disease and other diseases of the circulatory system; Z83.3 Family history of diabetes mellitus; Z87.891 Personal history of nicotine dependence
CPT/HCPCS: 29881; 36415; 85025; 96365; J0690; J2405; J2704; J3010; J3490; J7030

== ENCOUNTER 2021-07-07 14:34 | Outpatient (CLI) | payer MEDICARE, MEDICAID, SELFPAY ==
[2021-07-07 15:03] LABS: Basophils # 0.1 10^3/uL (0.0-0.1); Basophils % 2.2 %; Eosinophils # 0.3 10^3/uL (0.0-0.8); Eosinophils % 5.4 %; Hematocrit 36.7 % (37.0-47.0); Hemoglobin 11.9 g/dL (11.5-15.3); Lymphocytes # 1.5 10^3/uL (0.8-4.8); Mean Corpuscular HGB Conc 32.4 g/dL (30.0-36.0); Mean Corpuscular Hemoglobin 30.7 pg (28.0-34.0); Mean Corpuscular Volume 94.6 fl (81-99); Mean Platelet Volume 10.8 fL (7.4-10.4); Monocytes # 1.5 10^3/uL (0.2-0.9); Monocytes % 29.6 %; Neutrophils # 1.68 10^3/uL (1.8-7.7); Neutrophils % 33.6 %; Nucleated Red Blood Cells % 0 %; Platelet Count 264 10^3/cmm (130-400); Red Blood Count 3.88 10^6/uL (4.1-5.3); Red Cell Distribution Width 14.1 % (12.1-15.1)
[2021-07-07 15:28] LABS: Alanine Aminotransferase 29 U/L (0-33); Albumin Level 3.9 g/dL (3.5-5.2); Alkaline Phosphatase 68 IU/L (35-105); Anion Gap 13.8 (5-19); Aspartate Amino Transferase 50 U/L (0-32); Blood Urea Nitrogen 10 mg/dL (6-20); Calcium 9.7 mg/dL (8.5-10.5); Carbon Dioxide 30 mmol/L (22-29); Chloride 97 mmol/L (98-107); Globulin 2.7 g/dL (1.3-4.6); Glomerular Filtration Rate 85.6 mL/min (90-130); Glucose 104 mg/dL (65-115); Osmolality Calculated 283 mOsm/kg (285-295); Potassium 3.8 mmol/L (3.5-5.1); Sodium 137 mmol/L (136-145); Total Bilirubin 0.3 mg/dL (0.15-1.2); Total Protein 6.6 g/dL (6.6-8.7)
[2021-07-07 15:40] LABS: Slide Review Slide Review Perform
== END 2021-07-07 14:35 | disposition home or self-care (01) ==
PROVIDERS: PCP Physician Assistant; Visit Provider Internal Medicine Medical Oncology
DX: D47.2 Monoclonal gammopathy (principal); D72.820 Lymphocytosis (symptomatic)
CPT/HCPCS: 36415; 80053; 85025

== ENCOUNTER 2021-07-27 12:02 | Outpatient (CLI) | payer MEDICARE, MEDICAID, SELFPAY ==
[2021-07-27 12:37] LABS: Hematocrit 36.8 % (37.0-47.0); Hemoglobin 12.8 g/dL (11.5-15.3); Mean Corpuscular HGB Conc 34.8 g/dL (30.0-36.0); Mean Corpuscular Hemoglobin 30.3 pg (28.0-34.0); Mean Corpuscular Volume 87.2 fl (81-99); Mean Platelet Volume 10.2 fL (7.4-10.4); Platelet Count 254 10^3/cmm (130-400); Red Blood Count 4.22 10^6/uL (4.1-5.3); Red Cell Distribution Width 13.5 % (12.1-15.1); White Blood Count 6.9 10^3/uL (4.0-10.0)
[2021-07-27 12:53] LABS: Alanine Aminotransferase 24 U/L (0-33); Albumin Level 4.4 g/dL (3.5-5.2); Alkaline Phosphatase 73 IU/L (35-105); Anion Gap 13.9 (5-19); Aspartate Amino Transferase 41 U/L (0-32); Blood Urea Nitrogen 13 mg/dL (6-20); Calcium 9.5 mg/dL (8.5-10.5); Carbon Dioxide 30 mmol/L (22-29); Chloride 93 mmol/L (98-107); Glomerular Filtration Rate 73.4 mL/min (90-130); Glucose 91 mg/dL (65-115); Osmolality Calculated 276 mOsm/kg (285-295); Potassium 3.9 mmol/L (3.5-5.1); Sodium 133 mmol/L (136-145); Total Bilirubin 0.3 mg/dL (0.15-1.2); Total Protein 7.4 g/dL (6.6-8.7)
[2021-07-27 12:58] LABS: Absolute Neutrophil 3.2 10^3/cmm (1.4-6.5); Absolute Segmented Neutrophil 3.1 10/cmm (1.6-7.1); Band Neutrophils Absolute 0.1 10^3/cmm (0.0-1.2); Eosinophils 1 %; Lymphocytes 29 %; Lymphocytes Absolute 2.6 10^3/cmm (1.2-3.4); Platelet Estimate Normal (Normal); Segmented Neutrophils 45 %; Total Cells Counted 100 (0-100)
[2021-07-27 14:06] LABS: Erythrocyte Sedimentation Rate < 1 mm/hr (0-15)
--- NOTE | 2021-07-27 15:27 | ONC FU_ITS ---
Dr. Solorzano Patient Follow-Up Note Patient: Yulisa Kinney Unit #: [id number]: 1960 Dicatated By: Robin Solorzano M.D.Date of Visit:Jul 27, 2021 Onc Med Follow-up/Prog Note Chief Complaint: Waldenstrom macroglobulinemia. History of Present Illness: This is a 60 year-old woman with Waldenstrom macroglobulinemia, presenting with lymphocytosis, anemia, and splenomegly in association with IgM monoclonal gammopathy. She had been seeing Dr. Jasso in neurology for peripheral neuropathy symptoms. She had been diagnosed with bilateral carpal tunnel syndrome and lumbar radiculopathy. On 09/26/2019 she had a follow-up outpatient visit with Lucy Dean. Her laboratory studies included CBC showing hemoglobin 9.7 g and hematocrit 31.5%. The red cell indices were normal. The white blood cell count was elevated 14,900 with the differential showing 23% granulocytes, 68% lymphocytes, and 7% monocytes. The platelet count was normal at 165,000. Comprehensive metabolic profile showed borderline renal function with BUN 15 and creatinine 1.1 mg/dL. The albumin was normal at 4.2 g/dL with calculated serum globulin elevated at 4.4 g/dL. The liver enzymes were normal. Sed rate and CRP levels were normal. TSH was borderline at 4.74 ???IUl/mL. B12 was normal at 568 pg/mL. Folate was greater than 24.0 ng/mL. The serum iron studies showed slightly low transferrin saturation at 18%. Ferritin was normal at 65 ng/mL. Protein electrophoresis showed a monoclonal protein band quantitating at 1.2 g/dL. Immunofixation showed IgM lambda. I had seen her initially on 10/31/2019. She was noted to have a palpable spleen, but there was no peripheral lymphadenopathy noted. Her repeat CBC showed hemoglobin 9.9 g, white blood cell count 17,000, and platelet count 124,000. The differential showed 70% lymphocytes, 18% neutrophils, 8% monocytes, and 1% eosinophils. Comprehensive metabolic profile was unremarkable except for slightly elevated SGOT at 46/32 U/L. LDH was just slightly elevated at 231/214 U/L. Protein electrophoresis showed an M band quantitating at 1.1 g/dL. The quantitative immunoglobulins included IgG elevated at 1464/230 mg/dL, IgG normal at 1129 mg/dL, and IgA normal at 113 mg/dL. The free light chain assay showed elevated lambda light chain at 53.3 mg/L, kappa light chain 33.8 mg/L and kappa/lambda ratio within the normal range at 0.63. A whole blood flow cytometry on 11/06/2019 showed on monotypic B-cell population which was positive for CD19, CD20, and CD22. There was dim/partial positivity to FMC7 and CD25. A subset showed surface lambda light chain restriction, but the remaining population appeared to be light chain negative. The monotypic B cells were negative for CD5, CD10, CD23, CD11c, CD103, CD123, CD200, CD38, and CD34. The phenotype was felt to be nonspecific. Staging CT scans of the chest, abdomen, and pelvis on 11/14/2019 showed prominent left axillary lymph nodes, the largest measuring 10 mm, an enlarged celiac axis lymph node measuring 11.5 mm, a prominent left periaortic lymph node measuring 7 mm, and prominent inguinal lymph nodes measuring up to 10 mm. The spleen was enlarged measuring 13.1 cm. The right hepatic lobe was noted to be enlarged, but the liver otherwise appeared normal. She underwent bone marrow aspiration/biopsy on 12/05/2019. The interpretation was limited due to the bone marrow aspirate specimens having been hemodiluted without cellular spicules. Bone marrow was noted to be hypercellular on the biopsy specimen, averaging 60 to 90% cellularity. An extensive interstitial and diffuse lymphoid infiltrate was noted to involve a high proportion of the marrow space, estimated at 70 to 80%. The lymphoid cells were noted to be small and round with clumped nuclear chromatin. There was evidence of plasmacytic differentiation. The flow cytometry showed nonspecific phenotype, similar to the whole blood specimen. Iron stores were noted to be reduced, but not absent. Overall, the findings were not definitive, but they were suggestive of lymphoplasmacytic lymphoma. The MYD88 mutation was detected, consistent with Waldenstrom macroglobulinemia. Her other medical illnesses includehypertension, hyperlipidemia, fibromyalgia, and degenerative arthritis/degenerative disease of the spine. She has had multiple surgeries on both the cervical and lumbar spine. She reportedly was found to be positive for the Factor V Leiden mutation. She has history of smoking for 30 years, up to 2 packs of cigarettes daily. She quit smoking in 2006. INTERIM HISTORY: On 01/13/2020 she began a course of treatment with rituximab in combination with ibrutinib 420 mg daily. She completed the initial 4 weekly infusions of rituximab with no adverse effects. She then continued the ibrutinib at 420 mg daily. As of her follow-up visit on 03/04/2020 there had been a significant decline in her M protein, to 0.7 g/dL, and there also was significant improvement in the splenomegaly. There was not a significant change in her clinical status. She then continued ibrutinib 420 mg daily, which she tolerated well. As of her follow-up visit on 05/04/2020 her repeat protein electrophoresis showed residual M protein quantitating at 0.7 g/dL. She began her second course of rituximab administered weekly for 4 weeks. She completed her week 4 treatment on 05/25/2020. She tolerated it very well, and she then continued her treatment with ibrutinib 420 mg daily. On 08/13/2020 she was admitted to the hospital with pneumonia, having presented to the emergency room with mental status changes. She improved clinically on antibiotic therapy. She was discharged home on 08/17/2020. At that point she had adequate oxygen saturation on room air. However, on outpatient follow-up with Lucy Dean she apparently was found to be significantly hypoxic, and she was then started on home oxygen. At her follow-up visit on 09/24/2020 her ibrutinib was temporarily put on hold due to visual changes. Ultimately these were felt to be more likely due to gabapentin. Her ibrutinib was supposed to have been restarted, but for some reason that did not happen, and she remained off treatment. I have been seeing her for a follow-up visit on 10/27/2020. At that point her blood counts were adequate. She remained oxygen dependent, but she otherwise appeared stable clinically, and I did have her restart the ibrutinib at 420 mg daily. During subsequent follow-up she had complained of worsening problems with balance/equilibrium. As a precaution, I did have her stop the ibrutinib. Her restaging CT scans on 01/25/2021 showed no lymphadenopathy within the chest, abdomen, or pelvis. There were emphysematous changes, but no suspicious pulmonary mass or nodule was noted. There was just mild plaque atelectasis in the lingula and left lower lobe. Some wall thickening of the stomach was felt to possibly reflect gastritis or underdistention of the stomach. Her brain MRI on 02/02/2021 showed mild small vessel changes and moderate parenchymal volume loss. Chronic lacunar infarcts in the cerebellum appeared unchanged. There was no evidence of mass lesion or other acute pathology. In the meantime, she also was seen for follow-up by Dr. Rosario. 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 As of 02/25/2021 she restarted treatment with ibrutinib. As of her follow-up visit on 04/20/2021 her M protein was stable at 0.5 g/dL, and she appeared stable clinically. She continued ibrutinib 420 mg daily. As of 06/25/2021 her treatment was put on hold due to a decline in her absolute neutrophil count to just under 1300. She is seen for a follow-up visit. She continues to complain that she feels tired. She also complains that she cannot sleep despite taking trazodone and lorazepam at bedtime. She is able to do light housework. ECOG score is 1. Her appetite has been okay. She has been gaining weight. She does not have fever or night sweats. She has some allergy related sinus symptoms. She has not had sore mouth or throat. Her breathing has been okay. She is using oxygen at night. She does not complain of cough and she has not been having chest pain. She has no GI or complaints. She continues to have pain in her neck and in her lower back. She has pain in her hands and fingers. Her right knee, though, has been getting better. She says her headaches are under control now. She does have some dizziness. She continues to have numbness in her hands and in her legs and feet. Medications: Allopurinol 1 Tablet (of 300 mg) Oral daily, Atorvastatin Calcium 1 Tablet (of 20 mg) Oral at bedtime, B-1 1 Tablet (of 100 mg) Oral daily, Calcium Citrate + D 1 Tablet (of 315-200 mg - Units) Oral b.i.d., Cyclobenzaprine HCl 1 - 2 Tablet (of 10 mg) Oral b.i.d., Ferrous Sulfate 1 Tablet (of 325 (65 fe) mg) Oral daily, Folic Acid 1 Tablet (of 1 mg) Oral daily, Imodium A-D 1 Capsule (of 2 mg) Oral daily, Levothyroxine Sodium 1 Tablet (of 50 mcg) Oral daily, LORazepam 1 - 2 Tablet (of 0.5 mg) Oral t.i.d., Metoprolol Tartrate (25 mg) Tablet Oral Take as Directed, Multivitamin Adult 1 Tablet Oral daily, Pantoprazole Sodium 1 Tablet (of 40 mg) Tablet, enteric coated Oral daily, Prochlorperazine Maleate 1 Tablet (of 10 mg) Oral q 4 hours PRN, rOPINIRole HCl 2 Tablet (of 0.25 mg) Oral at bedtime, Stool Softener 1 Tablet (of 100 mg) Oral daily, traZODone HCl 0.5 - 1 Tablet (of 50 mg) Oral at bedtime, Vitamin C 1 Capsule (of 500 mg) Oral daily Allergies: Cortisone Acetate, Demerol, Dilaudid, Haldol, and Morphine Sulfate. Vital Signs: Performed on Jul 27, 2021 14:39 Height - 59.00 in Weight - 118.2 lbs (HIGH) BSA - 1.47 sq.m BMI - 23.87 Temperature - 99.7 F (HIGH) Pulse - 101 /min (HIGH) Respiration - 16 /min BP - 125/79 mm(hg) O2 Sat - 95 % (LOW) Pain - 4 Fatigue - 7 Physical Examination: Constitutional - She appears chronically ill, Eyes - Sclerae nonicteric. Conjunctivae clear, ENMT - No lesions noted in the oral cavity, Hematologic/Lymphatic - No cervical, clavicular, or axillary adenopathy, Respiratory - Lungs sound clear with some decrease in air movement bilaterally, Cardiovascular - Heart rhythm is regular. There is no murmur, gallop, or rub noted, Abdomen - Soft. Liver is not enlarged. Spleen is not palpable. There is no abdominal mass or ascites noted and there is no inguinal adenopathy, Extremities - No edema. There are scattered purpuric lesions on the arms, Neurologic - No focal neurologic deficits noted. Lab/Imaging: Test performed on Jul 27, 2021 12:20 Sodium 133 mmol/L Potassium 3.9 mmol/L Chloride 93 mmol/L CO2 30 mmol/L Anion Gap 13.9 BUN 13 mg/dL Creatinine 0.8 mg/dL Cr Clearance (Est) 62.7900 mL/min eGFR 73.4 mL/min Glucose 91 mg/dL Osmolality - Calculated 276 mOsm/kg Calcium 9.5 mg/dL Protein, Total 7.4 g/dL Albumin 4.4 g/dL Globulin 3.0 g/dL Bilirubin, Total 0.3 mg/dL ALT (SGPT) 24 U/L AST (SGOT) 41 U/L Alkaline Phosphatase 73 IU/L ESR (Sed Rate) < 1 mm/hr WBC 6.9 10 3/uL Manual Segs % 45 % Manual Bands % 1.0 % RBC 4.22 10 6/uL HGB 12.8 g/dL Manual Lymphs % 29 % Atypical Lymphs % 9.0 % HCT 36.8 % MCV 87.2 fl Total Cells Counted 100 Manual Monos % 15.0 % MCH 30.3 pg Manual Eos % 1 % MCHC 34.8 g/dL Manual Basos % 0.0 % RDW 13.5 % Platelet Count 254 10 3/cmm MPV 10.2 fL Platelet Estimate Normal Manual Segs Abs 3.1 10/cmm Manual Bands Abs 0.1 10 3/cmm Manual Neutrophils Abs 3.2 10 3/cmm Manual Lymphocytes Abs 2.6 10 3/cmm Manual Monocytes Abs 1.0 10 3/cmm Manual Eosinophils Abs 0.0 10 3/cmm Manual Basophils Abs 0.0 10 3/cmm Problem List: 1. Waldenstr???m macroglobulinemia. 2. Peripheral neuropathy. 3. Hypertension. 4. Hyperlipidemia. 5. Fibromyalgia. 6. Degenerative arthritis and degenerative disease of the spine. She has associated cervical spinal canal stenosis. 7. She was reportedly found to be positive for the Factor V Leiden mutation. Problems Addressed with this Encounter and Plan: 1. Patient with lymphoproliferative disorder with associated IgM monoclonal gammopathy. 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 The MYD88 mutation was detected, consistent with Waldenstr???m macroglobulinemia. She has significant peripheral neuropathy, which I have assumed to be related. Her treatment has included two 4-week courses of weekly rituximab, administered in January and in May 2020, together with ibrutinib 420 mg daily. Overall, she has tolerated the treatment well. She had a very good objective response, though without significant change in her clinical status. In September 2020 her ibrutinib was temporarily put on hold due to visual changes, but these were ultimately felt to be more likely associated with gabapentin. As of her follow-up visit on 10/27/2020 when she restarted ibrutinib at 420 mg daily. However, it was subsequently put on hold again due worsening equilibrium/balance. She had follow-up with Dr. 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 As of her follow-up visit on 02/25/2021 she restarted ibrutinib 420 mg daily. Unfortunately, despite the improvement in her IgM level, she continued to have significant peripheral neuropathy symptoms and she also continued to have somewhat marginal performance status. As of 06/24/2021 her ibrutinib was put on hold again, this time due to a decrease in her absolute neutrophil count. She has had adequate recovery. She has otherwise been tolerating the treatment well, thus far with no evidence of progression of the macroglobulinemia. She will now restart ibrutinib at 420 mg daily. Her blood counts will be monitored monthly. With any further neutropenia, she will be given a dose reduction. I will see her again in 3 months. #2. She has chronic insomnia. I will have her try increasing trazodone to 100 mg at bedtime. Signed By: Robin Solorzano M.D. <<Signature on File>>
[2021-07-29 03:29] LABS: PROTEIN, TOTAL 7.4 g/dL (6.1-8.1)
[2021-07-30 15:58] LABS: ABNORMAL PROTEIN BAND 1 0.8 g/dL (NONE DETECTED); ALBUMIN 4.2 g/dL (3.8-4.8); ALPHA 1 GLOBULIN 0.3 g/dL (0.2-0.3); ALPHA 2 GLOBULIN 0.8 g/dL (0.5-0.9); BETA 1 GLOBULIN 0.4 g/dL (0.4-0.6); BETA 2 GLOBULIN 0.3 g/dL (0.2-0.5); GAMMA GLOBULIN 1.4 g/dL (0.8-1.7)
== END 2021-07-27 12:03 | disposition home or self-care (01) ==
LOC: ONCMED 12:05
PROVIDERS: PCP Physician Assistant; Visit Provider Internal Medicine Medical Oncology
DX: C88.0 Waldenstrom macroglobulinemia (principal); G62.9 Polyneuropathy, unspecified; I10 Essential (primary) hypertension; E78.5 Hyperlipidemia, unspecified; M79.7 Fibromyalgia; M50.30 Other cervical disc degeneration, unspecified cervical region; M48.02 Spinal stenosis, cervical region; D68.51 Activated protein C resistance; G47.00 Insomnia, unspecified; Z79.899 Other long term (current) drug therapy; Z92.21 Personal history of antineoplastic chemotherapy
CPT/HCPCS: 36415; 80053; 84155; 84165; 85007; 85025; 85651; 99214

== ENCOUNTER 2021-08-23 13:18 | Outpatient (CLI) | payer MEDICARE, MEDICAID, SELFPAY ==
[2021-08-23 14:08] LABS: Basophils # 0.1 10^3/uL (0.0-0.1); Basophils % 1.4 %; Eosinophils % 0.5 %; Hematocrit 34.7 % (37.0-47.0); Hemoglobin 11.6 g/dL (11.5-15.3); Lymphocytes # 1.5 10^3/uL (0.8-4.8); Lymphocytes % 34.8 %; Mean Corpuscular HGB Conc 33.4 g/dL (30.0-36.0); Mean Corpuscular Hemoglobin 30.2 pg (28.0-34.0); Mean Corpuscular Volume 90.4 fl (81-99); Mean Platelet Volume 11.7 fL (7.4-10.4); Monocytes % 23.1 %; Neutrophils # 1.68 10^3/uL (1.8-7.7); Neutrophils % 39.3 %; Nucleated Red Blood Cells % 0 %; Platelet Count 184 10^3/cmm (130-400); Red Blood Count 3.84 10^6/uL (4.1-5.3); Red Cell Distribution Width 14.4 % (12.1-15.1); White Blood Count 4.3 10^3/uL (4.0-10.0)
== END 2021-08-23 13:19 | disposition home or self-care (01) ==
LOC: ONCMED 13:22
PROVIDERS: PCP Physician Assistant; Visit Provider Internal Medicine Medical Oncology
DX: D47.2 Monoclonal gammopathy (principal)
CPT/HCPCS: 36415; 85025

== ENCOUNTER 2021-09-17 10:19 | Outpatient (CLI) | payer MEDICARE, MEDICAID, SELFPAY ==
--- NOTE | 2021-09-17 10:27 | FL_ITS ---
WS: [id number] Upper GI and small bowel follow-through 09/17/2021. HISTORY: Waldenstrom's Macroglobulinemia. Abdominal discomfort after eating. Feeling like food stick ing. TECHNIQUE: Upper GI Swallowing of barium and its passage from the hypopharynx to the ligament of Treitz was monitored wit h fluoroscopy with multiple spot films. Patient was examined in the upright position and in the prone right anterior oblique position. The cervical esophagus in the swallowing appeared normal. The mid and distal esophagus demonstrated weakened primary peristalsis with intervals of tertiary con tractions that prevented emptying of the esophagus. Subsequent swallows eventually cleared the esopha esperanza. There was no esophageal obstruction. No hiatal hernia. No significant reflux could be elicited. Full pattern within the stomach was normal. No mass or inflammatory change was identified. The pylorus, duodenum, and duodenal sweep are normal. TECHNIQUE small bowel follow-through: After the additional ingestion of barium of multiple abdominal radiographs were obtained at 30 minute intervals for approximately 2 hours. Once the contrast reached the colon the small bowel loops were examined fluoroscopically with palpation. Terminal ileum was localized and additional radiographs obt ained. The jejunum and ileum demonstrated normal caliber and a normal fold pattern. No mucosal or mural abno rmality. The barium reached the colon within an appropriate length time. The palpated and radiographed termina l ileum was normal. FL/FL upper GI smallbowel series IMPRESSION: Moderate tertiary contractions with intermittent loss of primary peristaltic wa ve and delayed emptying of the esophagus. These findings may account for the pa tient's symptoms. The stomach and duodenum were unremarkable. The jejunum and ileum were normal. Normal transit time.
[2021-09-17] MEDS: diatrizoate meglumine 30 mL Sol PO (13:25)
== END 2021-09-17 10:20 | disposition home or self-care (01) ==
LOC: RAD 10:23
PROVIDERS: PCP Physician Assistant; Visit Provider Physician Assistant
DX: K21.9 Gastro-esophageal reflux disease without esophagitis (principal)
CPT/HCPCS: 74240; 74248

== ENCOUNTER 2021-09-24 11:06 | Outpatient (CLI) | payer MEDICARE, MEDICAID, SELFPAY ==
[2021-09-24 11:57] LABS: Basophils # 0.2 10^3/uL (0.0-0.1); Basophils % 2.2 %; Eosinophils # 0.1 10^3/uL (0.0-0.8); Eosinophils % 1.8 %; Hemoglobin 12.1 g/dL (11.5-15.3); Lymphocytes # 2.1 10^3/uL (0.8-4.8); Lymphocytes % 29.7 %; Mean Corpuscular HGB Conc 32.7 g/dL (30.0-36.0); Mean Corpuscular Hemoglobin 29.8 pg (28.0-34.0); Mean Corpuscular Volume 91.1 fl (81-99); Mean Platelet Volume 11.8 fL (7.4-10.4); Monocytes # 1.2 10^3/uL (0.2-0.9); Monocytes % 16.1 %; Neutrophils % 49.1 %; Nucleated Red Blood Cells % 0 %; Platelet Count 201 10^3/cmm (130-400); Red Blood Count 4.06 10^6/uL (4.1-5.3); Red Cell Distribution Width 13.8 % (12.1-15.1); White Blood Count 7.1 10^3/uL (4.0-10.0)
== END 2021-09-24 11:07 | disposition home or self-care (01) ==
LOC: ONCMED 11:15
PROVIDERS: PCP Physician Assistant; Visit Provider Internal Medicine Medical Oncology
DX: D47.2 Monoclonal gammopathy (principal)
CPT/HCPCS: 36415; 85025

== ENCOUNTER 2021-10-20 10:27 | Outpatient (CLI) | payer MEDICARE, MEDICAID, SELFPAY ==
--- NOTE | 2021-10-20 10:35 | MM_ITS ---
WS: [id number] BILATERAL SCREENING DIGITAL MAMMOGRAM WITH CAD HISTORY: SCREENING COMPARISON: 08/12/2020 and 04/01/2020 and 12/25/2017 Bilateral CC and MLO views submitted. Computer aided detection analyzed. Breast composition: There are scattered areas of fibroglandular density. No suspicious masses, microc alcifications or architectural distortion. MM/[place] [id number] IMPRESSION: BI-RADS: 1-Negative FOLLOW UP: 1 Year Follow-up
== END 2021-10-20 10:28 | disposition home or self-care (01) ==
PROVIDERS: PCP Physician Assistant; Visit Provider Physician Assistant
DX: Z12.31 Encounter for screening mammogram for malignant neoplasm of breast (principal)
CPT/HCPCS: 77067

== ENCOUNTER 2021-11-13 11:46 | Emergency (ER) | payer MEDICARE, MEDICAID, SELFPAY ==
[2021-11-13 11:48] VITALS: BP 117/77; PULSE 108; RESP 16; TEMP 36.3; O2SAT 94; BMI 23.0
--- NOTE | 2021-11-13 12:05 | ECG_ITS ---
[facility] Test Date: 2021-11-13 Pat Name: Yulisa Kinney Department: Room: Gender: Female Platform Supervisor: : 1960 Requested By: Bereket Pollard Order Number: [id number] Elizondo MD: Mikey Rangel M.D. Measurements Intervals [place] Rate: 106 P: 81 WY: 180 QRS: 82 QRSD: 93 T: 59 QT: 326 QTc: 435 Interpretive Statements SINUS TACHYCARDIA Compared to ECG 08/13/2020 14:18:59 Sinus rhythm no longer present Electronically Signed On 11-14-2021 15:46:02 CDT by Mikey Rangel M.D. [id number]
--- NOTE | 2021-11-13 12:05 | XRR_ITS ---
PROCEDURE INFORMATION: Exam: XR Chest Exam date and time: 11/13/2021 12:05 PM Age: 61 years old Clinical indication: Cough and fever; Additional info: Cough fever TECHNIQUE: Imaging protocol: XR of the chest. Views: 1 view. Total images: 1 COMPARISON: CT chest abd pel w con* 01/25/2021 2:39 PM FINDINGS: Lungs: Trace atelectasis or scar noted in the left lung base. Benign granulomatous disease of the lung is noted. Pleural spaces: Unremarkable. No pleural effusion. No pneumothorax. Heart/Mediastinum: Unremarkable. No cardiomegaly. Bones/joints: Osseous structures are unchanged from the prior exam. XR/XR chest 1V portable [id number] IMPRESSION: Trace atelectasis or scar noted in the left lung base.
--- NOTE | 2021-11-13 12:09 | ED_ITS ---
HPI - SOB/Dyspnea General: Chief Complaint: Shortness of Breath/Dyspnea Stated Complaint: sob Time Seen by Provider: 11/13/21 11:58 Source: patient and family Mode of arrival: ambulatory Limitations: no limitations History of Present Illness: HPI Narrative: This patient with a known history of lymphoma and leukemia and who wears continuous oxygen at 2 L at home states over the past 2 weeks she has had progressive weakness and shortness of breath and cough. She has had subjective fevers as well. She is also had chest pain with cough but no chest pain otherwise. She denies any known exposure to infectious disease and denies any history of cardiopulmonary disease. She is undergoing immunotherapy for her cancer. She has not been immunized against COVID-19 but has not had any known exposure to COVID-19. She is on under the care of oncology. She states she had decreased appetite but that has preceded her current illness. She states she does not have any nausea vomiting diarrhea or abdominal pain. 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 MD elicited complaint: shortness of breath and cough Timing: progressively worsening Severity: moderate Exacerbating factors: exertion Associated symptoms: Reports cough and fever(s); Deny abdominal pain, extremity pain, hemoptysis, nausea, palpitations, polydipsia, polyuria, syncope or vomiting Treatment prior to arrival: oxygen Related Data: Home oxygen amount: 2 liters Review of Systems Const: Reports: fever(s), change in appetite and fatigue Eyes: Denies: change in vision ENMT: Denies: throat pain or odynophagia Card: Denies: palpitations or syncope Resp: Denies: wheezing or hemoptysis GI: Denies: abdominal pain, nausea, vomiting or diarrhea : Denies: flank pain, difficulty voiding or dysuria Musc: Denies: neck pain, back pain, extremity pain or extremity swelling Skin/Breast: Denies: rash, pruritus or erythema Neuro: Denies: headache(s), numbness in extremities or weakness in extremities Psych: Denies: anxiety Endo: Denies: polyuria or polydipsia [facility] PFSH: Medical History Anxiety Cervical post-laminectomy syndrome Degenerative arthritis Fibromyalgia Hyperlipidemia Hypertension Hypothyroidism IgM monoclonal gammopathy of uncertain significance Lumbar post-laminectomy syndrome Peripheral neuropathy Restless leg syndrome Waldenstrom macroglobulinemia Surgical History History of cervical spinal surgery [facility]: 02/14/2017 Posterolateral cervical fusion C2-C6 03/02/2016 C3-C4 ACDFF, removal of prior anterior cervical plate, C4-C5 2004 C4-C5 ACDFF All operative reports scanned to chart History of section, low transverse X2 History of facial surgery 1992 Following trauma, x3 History of lumbar surgery 2013, 2011 and 2010 [facility]: Lumbar fusion/fixation History of shoulder surgery Right x2 Family History Mother Lung disease Father Myocardial infarction Hypertension Diabetes Social History Alcohol intake: current Alcohol intake frequency: few times a week Household members: significant other Marital status: Life Partner Current occupational status: disabled History of recent travel: No Physical Exam Narrative: EXAM NARRATIVE: She is alert, makes good eye contact, is able to complete sentences in a normal fashion without dyspnea. Const: COMMON NORMALS: no acute distress, average body habitus and patient shellie ented x3 GENERAL APPEARANCE: cooperative HENMT: COMMON NORMALS: normocephalic, external ears normal, Normal nasal mucou s membranes and turbinates present and moist oral mucous membranes HEAD & SCALP: normocephalic NOSE: Normal nasal mucous membranes and turbinates present EXTERNAL EAR: Yes external ears normal Eye: COMMON NORMALS: Equal, round and reactive pupils present, EOMs intact bilaterally and conjunctivae normal CONJUNCTIVA: Yes conjunctivae normal PUPIL: Yes Equal, round and reactive pupils present Neck/C-Spine: COMMON NORMALS: full ROM, no lymphadenopathy, supple and no JVD Lymph: LYMPHATIC: no lymphadenopathy noted Chest: COMMONS NORMALS: normal inspection of the chest and normal palpation of entire chest wall Resp: COMMON NORMALS: normal respiratory effort, No retractions and No use of accessory muscles AUSCULTATION: crackles Laterality: bilateral and no wheezes Cardio: COMMON NORMALS: no JVD, regular rate, regular rhythm, No murmurs present (Cardio) and Peripheral pulses 2+ throughout RATE: regular rate RHYTHM: regular rhythm PERIPHERAL PULSES: Peripheral pulses 2+ throughout GI: COMMON NORMALS: Normal to inspection, nondistended, normoactive bowel sounds present, Soft to palpation, non-tender, No hepatosplenomegaly present and no masses PALPATION: Yes Soft to palpation and Yes No hepatosplenomegaly present : COMMON NORMALS: Yes no CVA tenderness BLADDER/KIDNEY EXAM: Yes no CVA tenderness Back/Pelvis: COMMON NORMALS: no CVA tenderness, thoracic and lumbar spine normal to inspection, no thoracic nor lumbar tenderness, thoraco-lumbar ROM normal and straight leg raise negative bilaterally Extremity: COMMON NORMALS: normal to inspection, full ROM, capillary refill normal, no joint enlargement, no calf tenderness and no pedal edema Neuro: COMMON NORMALS: patient oriented x3, moves all extremities, no focal motor deficits and no sensory deficits noted CRANIAL NERVES: Yes CN normal except as noted Course Vital Signs: Vital signs: Vital Signs Temperature 97.4 F L 11/13/21 11:48 Pulse Rate 90 11/13/21 13:52 Respiratory Rate 16 11/13/21 13:52 Blood Pressure 129/79 11/13/21 13:52 Pulse Oximetry 100 11/13/21 13:52 MDM - SOB/Dyspnea Medical Decision Making Patient's current presentation is consistent with likely a viral bronchitis given her reassuring imaging studies both CTA and plain chest film. She is mildly hyponatremic but has been so in the past from review of past laboratories. This likely represents poor nutritional intake recently due to her acute illness. No evidence at this time of ongoing emergency medical condition and I think she is amenable to an outpatient treatment with both she and her accompanying spouse are in agreement with as well. We also discussed discussed return precautions in detail and they acknowledged those discussions. They were appreciative of care. Medical Records I reviewed the patient's medical records. Lab Data I reviewed the patient's lab results. : 11/13/21 12:20 11/13/21 12:43 Labs/Radiology: Radiology Impressions Chest X-Ray 11/13/21 12:05 IMPRESSION: Trace atelectasis or scar noted in the left lung base. Chest CTA 11/13/21 13:16 IMPRESSION: There is no evidence for a pulmonary artery embolus. Laboratory Results WBC 13.2 10^3/uL (4.0-10.0) H 11/13/21 12:20 RBC 4.36 10^6/uL (4.1-5.3) 11/13/21 12:20 Hgb 13.2 g/dL (11.5-15.3) 11/13/21 12:20 Hct 38.6 % (37.0-47.0) 11/13/21 12:20 MCV 88.5 fl (81-99) 11/13/21 12:20 MCH 30.3 pg (28.0-34.0) 11/13/21 12: MCHC 34.2 g/dL (30.0-36.0) 11/13/21 12: RDW 13.0 % (12.1-15.1) 11/13/21 12:20 Plt Count 269 10^3/cmm (130-400) 11/13/21 12:20 MPV 11.6 fL (7.4-10.4) H 11/13/21 12:20 Neut % (Auto) 67.6 % 11/13/21 12: Lymph % (Auto) 13.1 % 11/13/21 12:20 [place] % (Auto) 15.6 % 11/13/21 12:20 Eos % (Auto) 2.0 % 11/13/21 12:20 Baso % (Auto) 1.1 % 11/13/21 12:20 Neut # (Auto) 8.92 10^3/uL (1.8-7.7) H 11/13/21 12:20 Lymph # (Auto) 1.7 10^3/uL (0.8-4.8) 11/13/21 12:20 [place] # (Auto) 2.1 10^3/uL (0.2-0.9) H 11/13/21 12:20 Eos # (Auto) 0.3 10^3/uL (0.0-0.8) 11/13/21 12:20 Baso # (Auto) 0.1 10^3/uL (0.0-0.1) 11/13/21 12:20 Nucleated RBC % (auto) 0 % 11/13/21: Nucleated RBCs # 0.0 /100WBC 11/13/21 12:20 D-Dimer 0.88 ug/mIFEU (0-0.59) H 11/13/21 12: Sodium 127 mmol/L (136-145) L 11/13/21: Potassium 3.5 mmol/L (3.5-5.1) 11/13/21 12:43 Chloride 88 mmol/L (98-107) L 11/13/21 12:43 Carbon Dioxide 27 mmol/L (22-29) 11/13/21 12:43 Anion Gap 15.5 (5-19) 11/13/21 12:43 BUN 8 mg/dL (8-23) 11/13/21 12:43 Creatinine 0.7 mg/dL (0.5-0.9) 11/13/21 12:43 GFR Calculation 85.4 mL/min (90-130) L 11/13/21 12:43 Glucose 94 mg/dL (65-115) 11/13/21 12:43 Calculated Osmolality 262 mOsm/kg (285-295) L 11/13/21 12:43 Calcium 9.2 mg/dL (8.5-10.5) 11/13/21 12:43 Total Bilirubin 0.7 mg/dL (0.15-1.2) 11/13/21 12:43 AST 37 U/L (0-32) H 11/13/21 12:43 ALT 18 U/L (0-33) 11/13/21 12:43 Alkaline Phosphatase 80 IU/L (35-105) 11/13/21 12:43 Total Protein 7.2 g/dL (6.6-8.7) 11/13/21 12:43 Albumin 4.0 g/dL (3.5-5.2) 11/13/21 12:43 Globulin 3.2 g/dL (1.3-4.6) 11/13/21 12:43 SARS-CoV-2 Ag (Rapid) Negative (Negative) 11/13/21 12:20 EKG Data EKG 1: I personally reviewed and interpreted this EKG as follows: EKG interpretation time: 12:15 Interpretation: Resting EKG shows a rate of 106 bpm consistent with sinus tachycardia. She has normal intervals, normal axis, no acute ST-T wave changes noted. Discharge Plan Discharge Patient Disposition: Home Clinical Impression: Acute bronchitis, Chronic hyponatremia Condition: Stable Prescriptions: New doxycycline hyclate 100 mg capsule 100 mg PO BID 10 Days Qty: 20 0RF benzonatate 100 mg capsule 100 mg PO TID PRN (Reason: cough) Qty: 30 1RF No Action Imbruvica 140 mg tablet 420 mg PO DAILY 0RF Rx Instructions: take at same time(s) each day; swallow whole with water; do not crush, chew, break, dissolve, cut, or open (DME) Seated walker See Rx Instructions .Route .MEDSUPPLY Qty: 1 0RF Rx Instructions: As directed hydrochlorothiazide 12.5 mg capsule 12.5 mg PO DAILY 0RF levothyroxine 50 mcg capsule 50 mcg PO DAILY 0RF folic acid 1 mg tablet 1 mg PO DAILY 0RF trazodone 50 mg tablet 25 mg PO DAILY 0RF pantoprazole 40 mg tablet,delayed release (DR/EC) 40 mg PO DAILY 0RF thiamine HCl (vitamin B1) 100 mg tablet 100 mg PO DAILY 0RF metoprolol tartrate 25 mg tablet See Rx Instructions .ROUTE .COMPLEX 0RF Rx Instructions: 25mg po orally in the morning/ 50 mg po orally in the evening ferrous gluconate 236 mg (27 mg iron) tablet 236 mg PO DAILY 0RF loperamide 2 mg capsule 2 mg PO Q6H PRN (Reason: Diarrhea) 0RF docusate sodium [Stool Softener] 100 mg capsule 100 mg PO DAILY 0RF biotin 10,000 mcg capsule 500 mcg PO DAILY 0RF hydrocodone-acetaminophen 5-325 mg tablet 1 tab PO Q4H PRN (Reason: pain) 7 Days Qty: 30 0RF atorvastatin [Lipitor] 20 mg Tablet 20 mg PO DAILY 0RF prochlorperazine maleate 10 mg Tablet 10 mg PO Q4H PRN (Reason: Nausea) 0RF lorazepam 0.5 mg Tablet See Rx Instructions .ROUTE .COMPLEX 0RF Rx Instructions: 1 to 2 tabs po tid prn ropinirole 0.25 mg Tablet See Rx Instructions .ROUTE .COMPLEX 0RF Rx Instructions: 1 to 2 tabs po bedtime allopurinol 300 mg Tablet 300 mg PO DAILY 0RF Imbruvica 140 mg Tablet 420 mg PO DAILY 0RF multivitamin Tablet 1 tab PO DAILY 0RF cyclobenzaprine 10 mg Tablet See Rx Instructions .ROUTE .COMPLEX 0RF Rx Instructions: 10 mg orally qam and 20mg po bedtime ascorbic acid (vitamin C) [Vitamin C] 500 mg Tablet 500 mg PO BID 0RF calcium carbonate-vitamin D3 [Calcium 500 + D] 500 mg(1,250mg) -200 unit Tablet See Rx Instructions .ROUTE .COMPLEX 0RF Rx Instructions: 1 tab orally in the morning/ 2 tabs orally in the evening Discharge Orders: Discharge ED (Routine); Ordered 11/13/21 Ordered By: Bereket Pollard Referrals: Lucy Dean PA [Primary Care Provider] - Discharge Diet: Usual diet Discharge Activity: Increase activity as tolerated Patient Instructions: Opioid Safety Activity Restrictions/Additional Instructions: Continue all your usual prescribed medications. Ensure that you are drinking plenty of fluids to include water and sports drinks. Salt your food additionall y at the table to help increase your sodium in your bloodstream. Do this for the next week. Take all the new medications prescribed. If your symptoms do not improve or worsen any time return to this or the nearest emergency department. Follow-up with your regular clinician in approximately 10 to 14 days for reevaluation. Coding Level of Care Code ED Personnel Recruiter for [facility] Exam Comprehensive
[2021-11-13 12:29] LABS: Basophils # 0.1 10^3/uL (0.0-0.1); Basophils % 1.1 %; Eosinophils # 0.3 10^3/uL (0.0-0.8); Hematocrit 38.6 % (37.0-47.0); Hemoglobin 13.2 g/dL (11.5-15.3); Lymphocytes # 1.7 10^3/uL (0.8-4.8); Lymphocytes % 13.1 %; Mean Corpuscular HGB Conc 34.2 g/dL (30.0-36.0); Mean Corpuscular Hemoglobin 30.3 pg (28.0-34.0); Mean Corpuscular Volume 88.5 fl (81-99); Mean Platelet Volume 11.6 fL (7.4-10.4); Monocytes # 2.1 10^3/uL (0.2-0.9); Monocytes % 15.6 %; Neutrophils # 8.92 10^3/uL (1.8-7.7); Neutrophils % 67.6 %; Nucleated Red Blood Cells % 0 %; Platelet Count 269 10^3/cmm (130-400); Red Blood Count 4.36 10^6/uL (4.1-5.3); White Blood Count 13.2 10^3/uL (4.0-10.0)
[2021-11-13 12:33] VITALS: BP 129/79; PULSE 96; RESP 18; O2SAT 95
[2021-11-13] MEDS: sodium chloride 0.9% 250 ML 999 ML IV (12:54)
[2021-11-13 13:02] LABS: D Dimer 0.88 ug/mIFEU (0-0.59)
[2021-11-13 13:12] LABS: Alanine Aminotransferase 18 U/L (0-33); Alkaline Phosphatase 80 IU/L (35-105); Anion Gap 15.5 (5-19); Aspartate Amino Transferase 37 U/L (0-32); Blood Urea Nitrogen 8 mg/dL (8-23); Calcium 9.2 mg/dL (8.5-10.5); Carbon Dioxide 27 mmol/L (22-29); Chloride 88 mmol/L (98-107); Globulin 3.2 g/dL (1.3-4.6); Glomerular Filtration Rate 85.4 mL/min (90-130); Glucose 94 mg/dL (65-115); Osmolality Calculated 262 mOsm/kg (285-295); Potassium 3.5 mmol/L (3.5-5.1); Sodium 127 mmol/L (136-145); Total Bilirubin 0.7 mg/dL (0.15-1.2); Total Protein 7.2 g/dL (6.6-8.7)
[2021-11-13 13:13] LABS: SARS Covid-2 Antigen Negative (Negative)
--- NOTE | 2021-11-13 13:16 | CTR_ITS ---
PROCEDURE INFORMATION: Exam: CTA Chest With Contrast Exam date and time: 11/13/2021 1:16 PM Age: 61 years old Clinical indication: Shortness of breath; Additional info: SOB and elevated d-dimer TECHNIQUE: Imaging protocol: Computed tomographic angiography of the chest with contrast. 3D rendering (Not supervised by radiologist): MIP and/or 3D reconstructed images were created by the technologist. Radiation optimization: All CT scans at this facility use at least one of these dose optimization techniques: automated exposure control; mA and/or kV adjustment per patient size (includes targeted exams where dose is matched to clinical indication); or iterative reconstruction. Contrast material: OMNI 350; Contrast volume: 69 ml; Contrast route: INTRAVENOUS (IV); COMPARISON: CT angio chest PE protcl [id number] 11/06/2020 8:47 AM RADIATION DOSE METRICS: Total DLP (mGy-cm): 435.45 FINDINGS: Pulmonary arteries: Normal. No pulmonary emboli. Aorta: Unremarkable. No aortic aneurysm. No aortic dissection. Lungs: Unremarkable. No consolidation. No masses. Pleural spaces: Unremarkable. No pneumothorax. No pleural effusion. Heart: Unremarkable. No cardiomegaly. No pericardial effusion. Lymph nodes: Unremarkable. No enlarged lymph nodes. Bones/joints: Degenerative change is identified in the spine. There is no evidence for acute fracture or malalignment. Soft tissues: Unremarkable. CT/CT angio chest PE protcl [id number] IMPRESSION: There is no evidence for a pulmonary artery embolus.
[2021-11-13] MEDS: iohexol 350 mg/mL 100 mL Btl IV (13:37)
[2021-11-13 13:52] VITALS: BP 129/79; PULSE 90; RESP 16; O2SAT 100
[2021-11-13 15:11] VITALS: BP 121/80; PULSE 91; RESP 17; O2SAT 99
[2021-11-13 15:12] VITALS: BP 121/80; PULSE 91; RESP 17; O2SAT 99
== END 2021-11-13 15:10 | disposition home or self-care (01) ==
PROVIDERS: Emergency Provider Emergency Medicine; PCP Physician Assistant
DX: J20.9 Acute bronchitis, unspecified (principal); E87.1 Hypo-osmolality and hyponatremia; E78.5 Hyperlipidemia, unspecified; I10 Essential (primary) hypertension
CPT/HCPCS: 71045; 71275; 80053; 85025; 85378; 87426; 93005; 99284; J7050; Q9967

== ENCOUNTER 2021-11-17 13:01 | Outpatient (CLI) | payer MEDICARE, MEDICAID, SELFPAY ==
[2021-11-17 13:47] LABS: Basophils # 0.2 10^3/uL (0.0-0.1); Basophils % 1.3 %; Eosinophils # 0.2 10^3/uL (0.0-0.8); Eosinophils % 1.8 %; Hematocrit 39.4 % (37.0-47.0); Lymphocytes # 2.1 10^3/uL (0.8-4.8); Lymphocytes % 18.6 %; Mean Platelet Volume 11.4 fL (7.4-10.4); Monocytes # 1.6 10^3/uL (0.2-0.9); Monocytes % 13.9 %; Neutrophils # 7.19 10^3/uL (1.8-7.7); Neutrophils % 62.9 %; Nucleated Red Blood Cells % 0 %; Platelet Count 310 10^3/cmm (130-400); Red Blood Count 4.33 10^6/uL (4.1-5.3); Red Cell Distribution Width 13.1 % (12.1-15.1); White Blood Count 11.4 10^3/uL (4.0-10.0)
[2021-11-17 14:04] LABS: Erythrocyte Sedimentation Rate 5 mm/hr (0-15)
[2021-11-17 14:15] LABS: Alanine Aminotransferase 15 U/L (0-33); Albumin Level 4.3 g/dL (3.5-5.2); Alkaline Phosphatase 83 IU/L (35-105); Anion Gap 12.8 (5-19); Aspartate Amino Transferase 30 U/L (0-32); Blood Urea Nitrogen 9 mg/dL (8-23); Calcium 10.8 mg/dL (8.5-10.5); Carbon Dioxide 30 mmol/L (22-29); Chloride 88 mmol/L (98-107); Globulin 3.2 g/dL (1.3-4.6); Glomerular Filtration Rate 85.4 mL/min (90-130); Glucose 85 mg/dL (65-115); Immunoglobulin IGA 138 mg/dL (70-400); Immunoglobulin IGG 838 mg/dL (700-1600); Lactate Dehydrogenase 205 U/L (135-214); Osmolality Calculated 264 mOsm/kg (285-295); Sodium 128 mmol/L (136-145); Total Bilirubin 0.7 mg/dL (0.15-1.2); Total Protein 7.5 g/dL (6.6-8.7)
[2021-11-17 14:17] LABS: Potassium 2.8 mmol/L (3.5-5.1)
[2021-11-17 14:27] LABS: Immunoglobulin IGM 740 mg/dL (40-230)
[2021-11-18 09:33] LABS: PROTEIN, TOTAL 6.9 g/dL (6.1-8.1)
[2021-11-18 16:07] LABS: ABNORMAL PROTEIN BAND 1 0.6 g/dL (NONE DETECTED); ALBUMIN 3.6 g/dL (3.8-4.8); ALPHA 1 GLOBULIN 0.5 g/dL (0.2-0.3); ALPHA 2 GLOBULIN 0.9 g/dL (0.5-0.9); BETA 1 GLOBULIN 0.4 g/dL (0.4-0.6); BETA 2 GLOBULIN 0.4 g/dL (0.2-0.5); GAMMA GLOBULIN 1.2 g/dL (0.8-1.7)
--- NOTE | 2021-11-21 18:01 | ONC FU_ITS ---
Nuris Sawyer Progress Note Patient: Yulisa Kinney Unit #: [id number]: 1960 Dicatated By: Nuris Sawyer N.P.Date of Visit:Nov 17, 2021 Onc MED Follow-up/Prog Note Chief Complaint: Waldenstrom macroglobulinemia. History of Present Illness: This is a 60 year-old woman with Waldenstrom macroglobulinemia, presenting with lymphocytosis, anemia, and splenomegly in association with IgM monoclonal gammopathy. She had been seeing Dr. Jasso in neurology for peripheral neuropathy symptoms. She had been diagnosed with bilateral carpal tunnel syndrome and lumbar radiculopathy. On 09/26/2019 she had a follow-up outpatient visit with Lucy Dean. Her laboratory studies included CBC showing hemoglobin 9.7 g and hematocrit 31.5%. The red cell indices were normal. The white blood cell count was elevated 14,900 with the differential showing 23% granulocytes, 68% lymphocytes, and 7% monocytes. The platelet count was normal at 165,000. Comprehensive metabolic profile showed borderline renal function with BUN 15 and creatinine 1.1 mg/dL. The albumin was normal at 4.2 g/dL with calculated serum globulin elevated at 4.4 g/dL. The liver enzymes were normal. Sed rate and CRP levels were normal. TSH was borderline at 4.74 ???IUl/mL. B12 was normal at 568 pg/mL. Folate was greater than 24.0 ng/mL. The serum iron studies showed slightly low transferrin saturation at 18%. Ferritin was normal at 65 ng/mL. Protein electrophoresis showed a monoclonal protein band quantitating at 1.2 g/dL. Immunofixation showed IgM lambda. Dr. Solorzano had seen her initially on 10/31/2019. She was noted to have a palpable spleen, but there was no peripheral lymphadenopathy noted. Her repeat CBC showed hemoglobin 9.9 g, white blood cell count 17,000, and platelet count 124,000. The differential showed 70% lymphocytes, 18% neutrophils, 8% monocytes, and 1% eosinophils. Comprehensive metabolic profile was unremarkable except for slightly elevated SGOT at 46/32 U/L. LDH was just slightly elevated at 231/214 U/L. Protein electrophoresis showed an M band quantitating at 1.1 g/dL. The quantitative immunoglobulins included IgG elevated at 1464/230 mg/dL, IgG normal at 1129 mg/dL, and IgA normal at 113 mg/dL. The free light chain assay showed elevated lambda light chain at 53.3 mg/L, kappa light chain 33.8 mg/L and kappa/lambda ratio within the normal range at 0.63. A whole blood flow cytometry on 11/06/2019 showed on monotypic B-cell population which was positive for CD19, CD20, and CD22. There was dim/partial positivity to FMC7 and CD25. A subset showed surface lambda light chain restriction, but the remaining population appeared to be light chain negative. The monotypic B cells were negative for CD5, CD10, CD23, CD11c, CD103, CD123, CD200, CD38, and CD34. The phenotype was felt to be nonspecific. Staging CT scans of the chest, abdomen, and pelvis on 11/14/2019 showed prominent left axillary lymph nodes, the largest measuring 10 mm, an enlarged celiac axis lymph node measuring 11.5 mm, a prominent left periaortic lymph node measuring 7 mm, and prominent inguinal lymph nodes measuring up to 10 mm. The spleen was enlarged measuring 13.1 cm. The right hepatic lobe was noted to be enlarged, but the liver otherwise appeared normal. She underwent bone marrow aspiration/biopsy on 12/05/2019. The interpretation was limited due to the bone marrow aspirate specimens having been hemodiluted without cellular spicules. Bone marrow was noted to be hypercellular on the biopsy specimen, averaging 60 to 90% cellularity. An extensive interstitial and diffuse lymphoid infiltrate was noted to involve a high proportion of the marrow space, estimated at 70 to 80%. The lymphoid cells were noted to be small and round with clumped nuclear chromatin. There was evidence of plasmacytic differentiation. The flow cytometry showed nonspecific phenotype, similar to the whole blood specimen. Iron stores were noted to be reduced, but not absent. Overall, the findings were not definitive, but they were suggestive of lymphoplasmacytic lymphoma. The MYD88 mutation was detected, consistent with Waldenstrom macroglobulinemia. Her other medical illnesses includehypertension, hyperlipidemia, fibromyalgia, and degenerative arthritis/degenerative disease of the spine. She has had multiple surgeries on both the cervical and lumbar spine. She reportedly was found to be positive for the Factor V Leiden mutation. She has history of smoking for 30 years, up to 2 packs of cigarettes daily. She quit smoking in 2006. INTERIM HISTORY: On 01/13/2020 she began a course of treatment with rituximab in combination with ibrutinib 420 mg daily. She completed the initial 4 weekly infusions of rituximab with no adverse effects. She then continued the ibrutinib at 420 mg daily. As of her follow-up visit on 03/04/2020 there had been a significant decline in her M protein, to 0.7 g/dL, and there also was significant improvement in the splenomegaly. There was not a significant change in her clinical status. She then continued ibrutinib 420 mg daily, which she tolerated well. As of her follow-up visit on 05/04/2020 her repeat protein electrophoresis showed residual M protein quantitating at 0.7 g/dL. She began her second course of rituximab administered weekly for 4 weeks. She completed her week 4 treatment on 05/25/2020. She tolerated it very well, and she then continued her treatment with ibrutinib 420 mg daily. On 08/13/2020 she was admitted to the hospital with pneumonia, having presented to the emergency room with mental status changes. She improved clinically on antibiotic therapy. She was discharged home on 08/17/2020. At that point she had adequate oxygen saturation on room air. However, on outpatient follow-up with Lucy Dean she apparently was found to be significantly hypoxic, and she was then started on home oxygen. At her follow-up visit on 09/24/2020 her ibrutinib was temporarily put on hold due to visual changes. Ultimately these were felt to be more likely due to gabapentin. Her ibrutinib was supposed to have been restarted, but for some reason that did not happen, and she remained off treatment. I have been seeing her for a follow-up visit on 10/27/2020. At that point her blood counts were adequate. She remained oxygen dependent, but she otherwise appeared stable clinically, and I did have her restart the ibrutinib at 420 mg daily. During subsequent follow-up she had complained of worsening problems with balance/equilibrium. As a precaution, I did have her stop the ibrutinib. Her restaging CT scans on 01/25/2021 showed no lymphadenopathy within the chest, abdomen, or pelvis. There were emphysematous changes, but no suspicious pulmonary mass or nodule was noted. There was just mild plaque atelectasis in the lingula and left lower lobe. Some wall thickening of the stomach was felt to possibly reflect gastritis or underdistention of the stomach. Her brain MRI on 02/02/2021 showed mild small vessel changes and moderate parenchymal volume loss. Chronic lacunar infarcts in the cerebellum appeared unchanged. There was no evidence of mass lesion or other acute pathology. In the meantime, she also was seen for follow-up by Dr. Rosario. 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 As of 02/25/2021 she restarted treatment with ibrutinib. As of her follow-up visit on 04/20/2021 her M protein was stable at 0.5 g/dL, and she appeared stable clinically. She continued ibrutinib 420 mg daily. As of 06/25/2021 her treatment was put on hold due to a decline in her absolute neutrophil count to just under 1300. Patient presents today for follow-up. She continues to have fatigue. She has just recently gotten over a stomach bug where she had nausea and vomiting. Her appetite is improving. She denies fever, chills, night sweats. She denies shortness of breath, cough, chest pain she was previously on oxygen at night but states she does not use that anymore. She does have chest wall discomfort from vomiting although that is improving. No diarrhea or constipation. She does not experience any urinary symptoms. No headaches or dizziness. She continues to have numbness in her lower extremities from peripheral neuropathy. Review Of Symptom: See above. Past Medical History: Cervical spinal stenosis Degenerative arthritis Degenerative disease of the spine Factor V Leiden mutation Fibromyalgia Hyperlipidemia Hypertension Past Surgical History: Bunionectomy on the right foot Cervical spine surgery x 4 section x 2 EGD and colonoscopy Facial surgery x 3 Lumbar spine surgery x 2 Multiple oral surgeries Rotator cuff repair x 2 Surgery for dislocated left hip Allergies: Cortisone Acetate, Demerol, Dilaudid, Haldol, and Morphine Sulfate. Medications: Allopurinol 1 Tablet (of 300 mg) Oral daily Atorvastatin Calcium 1 Tablet (of 20 mg) Oral at bedtime B-1 1 Tablet (of 100 mg) Oral daily Benzonatate 1 Tablet (of 100 mg) Capsule Oral t.i.d. PRN Calcium Citrate + D 1 Tablet (of 315-200 mg - Units) Oral b.i.d. Cyclobenzaprine HCl 1 - 2 Tablet (of 10 mg) Oral b.i.d. Doxycycline Hyclate 1 Tablet (of 100 mg) Oral b.i.d. Ferrous Sulfate 1 Tablet (of 325 (65 fe) mg) Oral daily Folic Acid 1 Tablet (of 1 mg) Oral daily Imodium A-D 1 Capsule (of 2 mg) Oral daily Levothyroxine Sodium 1 Tablet (of 50 mcg) Oral daily LORazepam 1 - 2 Tablet (of 0.5 mg) Oral t.i.d. Metoprolol Tartrate (25 mg) Tablet Oral Take as Directed Multivitamin Adult 1 Tablet Oral daily Pantoprazole Sodium 1 Tablet (of 40 mg) Tablet, enteric coated Oral daily Prochlorperazine Maleate 1 Tablet (of 10 mg) Oral q 4 hours PRN rOPINIRole HCl 2 Tablet (of 0.25 mg) Oral at bedtime Stool Softener 1 Tablet (of 100 mg) Oral daily traZODone HCl 0.5 - 1 Tablet (of 50 mg) Oral at bedtime Vitamin C 1 Capsule (of 500 mg) Oral daily Family History: Ms. Kinney's mother at age 71: emphysema. Ms. Kinney's father at age 70: congestive heart failure, and hypertension, and myocardial infarction, and type II diabetes. Ms. Kinney has 1 brother who is alive: coronary artery disease. She has 2 sisters: 1 alive, 1 . Ms. Kinney's first sister's septic shock. Father had diabetes, coronary artery disease, and chronic kidney disease. He at age 70. Her mother had COPD and history of strokes. She at age 71. A sister with septic shock. Another sister is in good health. She has 1 brother who has coronary disease. Her daughter was found to have factor V Leiden mutation in the course of her evaluation following a stillbirth. Social History: Ms. Kinney is and she is a disabled. Ms. Kinney quit smoking 14 years ago but had smoked 2.0 packs/day for 30 years. She drinks occasionally. Ms. Kinney reports the following support systems: lives with spouse, significant other, family, or friends, lives in own house, supportive family/friends willing to assist with needs, and transportation problems exist and will require assistance. Her diet consists of regular meals. She indicates her activity level as: light exercise. She has a history of smoking for 30 years up to 2 packs of cigarettes daily. She quit smoking in 2006. She has just occasional alcohol use. 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 Physical Examination: Performed on Nov 17, 2021 15:05: Height - 59.00 in, Weight - 113.0 lbs (LOW), BSA - 1.45 sq.m, BMI - 22.82, Temperature - 99.1 F (HIGH), Pulse - 102 /min (HIGH), Respiration - 16 /min, BP - 112/74 mm(hg), O2 Sat - 92 % (LOW), Pain - 5, and Fatigue - 8. Performance Status: 1 - No physically strenuous activity, but ambulatory and able to carry out light or sedentary work (e.g. office work, light house work). (ECOG) Constitutional Alert, cooperative, oriented. Mood and affect appropriate. Appears close to chronological age. Well nourished. Well developed. Head Normocephalic; no scars. Hematologic/Lymphatic No petechiae or purpura. No tender or palpable lymph nodes in the cervical, supraclavicular, axillary or inguinal area. Respiratory Lungs are clear to auscultation without rhonchi or wheezing. Cardiovascular Regular rate and rhythm of heart without murmurs, gallops or rubs. right chest wall tenderness Abdomen Non-tender, non-distended, no masses, ascites or hepatosplenomegaly. Good bowel sounds. No guarding or rebound tenderness. Psychiatric Alert and oriented times three. Coherent speech. Verbalizes understanding of our discussions today. Laboratory: Test performed on Nov 17, 2021 13:30 LDH (Total) 205 U/L Sodium 128 mmol/L Potassium 2.8 mmol/L Chloride 88 mmol/L CO2 30 mmol/L Anion Gap 12.8 BUN 9 mg/dL Creatinine 0.7 mg/dL Cr Clearance (Est) 70.8700 mL/min eGFR 85.4 mL/min Glucose 85 mg/dL Osmolality - Calculated 264 mOsm/kg Calcium 10.8 mg/dL Protein, Total 7.5 g/dL Albumin 4.3 g/dL Globulin 3.2 g/dL Bilirubin, Total 0.7 mg/dL ALT (SGPT) 15 U/L AST (SGOT) 30 U/L Alkaline Phosphatase 83 IU/L ESR (Sed Rate) 5 mm/hr WBC 11.4 10 3/uL RBC 4.33 10 6/uL HGB 13.0 g/dL HCT 39.4 % MCV 91.0 fl MCH 30.0 pg MCHC 33.0 g/dL RDW 13.1 % Platelet Count 310 10 3/cmm MPV 11.4 fL Neutrophils 7.19 10 3/uL Lymphocytes 2.1 10 3/uL Monocytes 1.6 10 3/uL Eosinophils 0.2 10 3/uL Basophils 0.2 10 3/uL Neutrophil % 62.9 % Lymphocyte % 18.6 % Monocyte % 13.9 % Eosinophil % 1.8 % Basophils % 1.3 % NRBC % 0 % IgA 138 mg/dL Test performed on Jul 27, 2021 12:20 Manual Segs % 45 % Manual Bands % 1.0 % Manual Lymphs % 29 % Atypical Lymphs % 9.0 % Total Cells Counted 100 Manual Monos % 15.0 % Manual Eos % 1 % Manual Basos % 0.0 % Platelet Estimate Normal Manual Segs Abs 3.1 10/cmm Manual Bands Abs 0.1 10 3/cmm Manual Neutrophils Abs 3.2 10 3/cmm Manual Lymphocytes Abs 2.6 10 3/cmm Manual Monocytes Abs 1.0 10 3/cmm Manual Eosinophils Abs 0.0 10 3/cmm Manual Basophils Abs 0.0 10 3/cmm Test performed on Jul 07, 2021 14:52 CBC Slide Review Slide Review Perform SLIDE REVIEWED AGREES WITH THE AUTO RESULT Impression: 1. Waldenstr???m macroglobulinemia. 2. Peripheral neuropathy. 3. Hypertension. 4. Hyperlipidemia. 5. Fibromyalgia. 6. Degenerative arthritis and degenerative disease of the spine. She has associated cervical spinal canal stenosis. 7. She was reportedly found to be positive for the Factor V Leiden mutation. Plan: 1. Patient with lymphoproliferative disorder with associated IgM monoclonal gammopathy. 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 The MYD88 mutation was detected, consistent with Waldenstr???m macroglobulinemia. She has significant peripheral neuropathy, which we have assumed to be related. Her treatment has included two 4-week courses of weekly rituximab, administered in January and in May 2020, together with ibrutinib 420 mg daily. Overall, she has tolerated the treatment well. She had a very good objective response, though without significant change in her clinical status. In September 2020 her ibrutinib was temporarily put on hold due to visual changes, but these were ultimately felt to be more likely associated with gabapentin. As of her follow-up visit on 10/27/2020 when she restarted ibrutinib at 420 mg daily. However, it was subsequently put on hold again due worsening equilibrium/balance. She had follow-up with Dr. 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 As of her follow-up visit on 02/25/2021 she restarted ibrutinib 420 mg daily. Unfortunately, despite the improvement in her IgM level, she continued to have significant peripheral neuropathy symptoms and she also continued to have somewhat marginal performance status. As of 06/24/2021 her ibrutinib was put on hold again, this time due to a decrease in her absolute neutrophil count. She has had adequate recovery. Her labs today indicate a WBC mildly elevated at 11.4 and a neutrophil count of 7.19. The rest of her CBC is stable. Her IgA is stable at 138 and her LDH is stable at 205. She will continue with ibrutinib 420 mg daily. Her sodium count is low at 128 and a potassium is low at 2.8. This could possibly be due to a stomach virus that she had where she was having nausea and vomiting that has now resolved. Always prescribe potassium replacement over the next week and have her return for follow-up with CBC and CMP. #2. She has chronic insomnia which is being treated with trazodone 100 mg at bedtime Signed By: Nuris Sawyer N.P. <<Signature on File>>
== END 2021-11-17 13:02 | disposition home or self-care (01) ==
PROVIDERS: Internal Medicine Medical Oncology; PCP Physician Assistant
DX: C88.0 Waldenstrom macroglobulinemia (principal); D72.820 Lymphocytosis (symptomatic); D64.9 Anemia, unspecified; R16.1 Splenomegaly, not elsewhere classified; D47.2 Monoclonal gammopathy; I10 Essential (primary) hypertension; E78.5 Hyperlipidemia, unspecified; M47.9 Spondylosis, unspecified; D68.51 Activated protein C resistance; M79.7 Fibromyalgia; Z79.899 Other long term (current) drug therapy; Z87.891 Personal history of nicotine dependence
CPT/HCPCS: 36415; 80053; 82784; 83615; 84155; 84165; 85025; 85651; 86334; 99214

== ENCOUNTER 2021-11-24 12:41 | Outpatient (CLI) | payer MEDICARE, MEDICAID, SELFPAY ==
[2021-11-24 13:19] LABS: Basophils # 0.1 10^3/uL (0.0-0.1); Basophils % 0.7 %; Eosinophils # 0.1 10^3/uL (0.0-0.8); Eosinophils % 0.5 %; Hematocrit 38.8 % (37.0-47.0); Lymphocytes # 1.9 10^3/uL (0.8-4.8); Lymphocytes % 12.2 %; Mean Corpuscular HGB Conc 33.5 g/dL (30.0-36.0); Mean Corpuscular Hemoglobin 30.3 pg (28.0-34.0); Mean Corpuscular Volume 90.4 fl (81-99); Mean Platelet Volume 11.3 fL (7.4-10.4); Monocytes % 12.7 %; Neutrophils # 11.23 10^3/uL (1.8-7.7); Neutrophils % 73.2 %; Nucleated Red Blood Cells % 0 %; Platelet Count 284 10^3/cmm (130-400); Red Blood Count 4.29 10^6/uL (4.1-5.3); Red Cell Distribution Width 13.2 % (12.1-15.1); White Blood Count 15.4 10^3/uL (4.0-10.0)
[2021-11-24 13:36] LABS: Alanine Aminotransferase 10 U/L (0-33); Albumin Level 3.8 g/dL (3.5-5.2); Alkaline Phosphatase 75 IU/L (35-105); Anion Gap 14.2 (5-19); Aspartate Amino Transferase 28 U/L (0-32); Blood Urea Nitrogen 12 mg/dL (8-23); Calcium 12.4 mg/dL (8.5-10.5); Carbon Dioxide 28 mmol/L (22-29); Chloride 92 mmol/L (98-107); Globulin 3.5 g/dL (1.3-4.6); Glomerular Filtration Rate 73.2 mL/min (90-130); Glucose 88 mg/dL (65-115); Osmolality Calculated 269 mOsm/kg (285-295); Potassium 4.2 mmol/L (3.5-5.1); Sodium 130 mmol/L (136-145); Total Bilirubin 0.5 mg/dL (0.15-1.2); Total Protein 7.3 g/dL (6.6-8.7)
[2021-11-24] MEDS: sodium chloride 0.9% 1,000 ML 999 ML IV (15:55)
[2021-11-24 16:35] LABS: Erythrocyte Sedimentation Rate 8 mm/hr (0-15)
[2021-11-24 17:19] LABS: Urine Appearance Clear (CLEAR); Urine Color Yellow (Yellow); pH Urine 7 (5-7)
[2021-11-24 17:20] LABS: Bilirubin Urine Neg (Negative); Blood Urine Neg (Negative); Glucose Urine UA Norm (Normal); Ketones Urine Negative (Negative); Leukocyte Esterase Urine Negative (Negative); Nitrate Urine Negative (Negative); Protein Urine Neg (Negative); Urobilinogen Urine Norm (Negative)
[2021-11-24 17:21] LABS: Add Urine Culture? No; Bacteria Urine TRACE /hpf; RBC Urine 0-4 /hpf (0-2); Squamous Epithelial Cell Urine 0-4 /hpf (0-5); WBC Urine RARE /hpf (0-5)
[2021-11-24 17:33] LABS: C Reactive Protein 25.4 mg/L (0.0-4.9)
== END 2021-11-24 12:42 | disposition home or self-care (01) ==
PROVIDERS: PCP Physician Assistant; Visit Provider Internal Medicine Medical Oncology
DX: C88.0 Waldenstrom macroglobulinemia (principal); D72.820 Lymphocytosis (symptomatic); D64.9 Anemia, unspecified; R16.1 Splenomegaly, not elsewhere classified; D47.2 Monoclonal gammopathy; I10 Essential (primary) hypertension; E78.5 Hyperlipidemia, unspecified; M47.9 Spondylosis, unspecified; D68.51 Activated protein C resistance; M79.7 Fibromyalgia; Z79.899 Other long term (current) drug therapy; Z87.891 Personal history of nicotine dependence
CPT/HCPCS: 80053; 81001; 85025; 85651; 86140; 87040; J7030

== ENCOUNTER 2021-11-24 14:30 | Outpatient (CLI) | payer MEDICARE, MEDICAID, SELFPAY ==
--- NOTE | 2021-11-25 07:07 | ONC FU_ITS ---
Dr. Solorzano Patient Follow-Up Note Patient: Yulisa Kinney Unit #: [id number]: [id number] Dicatated By: Robin Solorzano M.D.Date of Visit:Nov 24, 2021 Onc Med Follow-up/Prog Note Chief Complaint: Waldenstrom macroglobulinemia. History of Present Illness: This is a 60 year-old woman with Waldenstrom macroglobulinemia, presenting with lymphocytosis, anemia, and splenomegly in association with IgM monoclonal gammopathy. She had been seeing Dr. Jasso in neurology for peripheral neuropathy symptoms. She had been diagnosed with bilateral carpal tunnel syndrome and lumbar radiculopathy. On 09/26/2019 she had a follow-up outpatient visit with Lucy Dean. Her laboratory studies included CBC showing hemoglobin 9.7 g and hematocrit 31.5%. The red cell indices were normal. The white blood cell count was elevated 14,900 with the differential showing 23% granulocytes, 68% lymphocytes, and 7% monocytes. The platelet count was normal at 165,000. Comprehensive metabolic profile showed borderline renal function with BUN 15 and creatinine 1.1 mg/dL. The albumin was normal at 4.2 g/dL with calculated serum globulin elevated at 4.4 g/dL. The liver enzymes were normal. Sed rate and CRP levels were normal. TSH was borderline at 4.74 ???IUl/mL. B12 was normal at 568 pg/mL. Folate was greater than 24.0 ng/mL. The serum iron studies showed slightly low transferrin saturation at 18%. Ferritin was normal at 65 ng/mL. Protein electrophoresis showed a monoclonal protein band quantitating at 1.2 g/dL. Immunofixation showed IgM lambda. I had seen her initially on 10/31/2019. She was noted to have a palpable spleen, but there was no peripheral lymphadenopathy noted. Her repeat CBC showed hemoglobin 9.9 g, white blood cell count 17,000, and platelet count 124,000. The differential showed 70% lymphocytes, 18% neutrophils, 8% monocytes, and 1% eosinophils. Comprehensive metabolic profile was unremarkable except for slightly elevated SGOT at 46/32 U/L. LDH was just slightly elevated at 231/214 U/L. Protein electrophoresis showed an M band quantitating at 1.1 g/dL. The quantitative immunoglobulins included IgG elevated at 1464/230 mg/dL, IgG normal at 1129 mg/dL, and IgA normal at 113 mg/dL. The free light chain assay showed elevated lambda light chain at 53.3 mg/L, kappa light chain 33.8 mg/L and kappa/lambda ratio within the normal range at 0.63. A whole blood flow cytometry on 11/06/2019 showed on monotypic B-cell population which was positive for CD19, CD20, and CD22. There was dim/partial positivity to FMC7 and CD25. A subset showed surface lambda light chain restriction, but the remaining population appeared to be light chain negative. The monotypic B cells were negative for CD5, CD10, CD23, CD11c, CD103, CD123, CD200, CD38, and CD34. The phenotype was felt to be nonspecific. Staging CT scans of the chest, abdomen, and pelvis on 11/14/2019 showed prominent left axillary lymph nodes, the largest measuring 10 mm, an enlarged celiac axis lymph node measuring 11.5 mm, a prominent left periaortic lymph node measuring 7 mm, and prominent inguinal lymph nodes measuring up to 10 mm. The spleen was enlarged measuring 13.1 cm. The right hepatic lobe was noted to be enlarged, but the liver otherwise appeared normal. She underwent bone marrow aspiration/biopsy on 12/05/2019. The interpretation was limited due to the bone marrow aspirate specimens having been hemodiluted without cellular spicules. Bone marrow was noted to be hypercellular on the biopsy specimen, averaging 60 to 90% cellularity. An extensive interstitial and diffuse lymphoid infiltrate was noted to involve a high proportion of the marrow space, estimated at 70 to 80%. The lymphoid cells were noted to be small and round with clumped nuclear chromatin. There was evidence of plasmacytic differentiation. The flow cytometry showed nonspecific phenotype, similar to the whole blood specimen. Iron stores were noted to be reduced, but not absent. Overall, the findings were not definitive, but they were suggestive of lymphoplasmacytic lymphoma. The MYD88 mutation was detected, consistent with Waldenstrom macroglobulinemia. On 01/13/2020 she began a course of treatment with rituximab in combination with ibrutinib 420 mg daily. She completed the initial 4 weekly infusions of rituximab with no adverse effects. She then continued the ibrutinib at 420 mg daily. As of her follow-up visit on 03/04/2020 there had been a significant decline in her M protein, to 0.7 g/dL, and there also was significant improvement in the splenomegaly. There was not a significant change in her clinical status. She then continued ibrutinib 420 mg daily, which she tolerated well. As of her follow-up visit on 05/04/2020 her repeat protein electrophoresis showed residual M protein quantitating at 0.7 g/dL. She began her second course of rituximab administered weekly for 4 weeks. She completed her week 4 treatment on 05/25/2020. She tolerated it very well, and she then continued her treatment with ibrutinib 420 mg daily. On 08/13/2020 she was admitted to the hospital with pneumonia, having presented to the emergency room with mental status changes. She improved clinically on antibiotic therapy. She was discharged home on 08/17/2020. At that point she had adequate oxygen saturation on room air. However, on outpatient follow-up with Lucy Dean she apparently was found to be significantly hypoxic, and she was then started on home oxygen. At her follow-up visit on 09/24/2020 her ibrutinib was temporarily put on hold due to visual changes. Ultimately these were felt to be more likely due to gabapentin. Her ibrutinib was supposed to have been restarted, but for some reason that did not happen, and she remained off treatment. I have been seeing her for a follow-up visit on 10/27/2020. At that point her blood counts were adequate. She remained oxygen dependent, but she otherwise appeared stable clinically, and I did have her restart the ibrutinib at 420 mg daily. During subsequent follow-up she had complained of worsening problems with balance/equilibrium. As a precaution, I did have her stop the ibrutinib. Her restaging CT scans on 01/25/2021 showed no lymphadenopathy within the chest, abdomen, or pelvis. There were emphysematous changes, but no suspicious pulmonary mass or nodule was noted. There was just mild plaque atelectasis in the lingula and left lower lobe. Some wall thickening of the stomach was felt to possibly reflect gastritis or underdistention of the stomach. Her brain MRI on 02/02/2021 showed mild small vessel changes and moderate parenchymal volume loss. Chronic lacunar infarcts in the cerebellum appeared unchanged. There was no evidence of mass lesion or other acute pathology. In the meantime, she also was seen for follow-up by Dr. Rosario. 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 As of 02/25/2021 she restarted treatment with ibrutinib. As of her follow-up visit on 04/20/2021 her M protein was stable at 0.5 g/dL, and she appeared stable clinically. She continued ibrutinib 420 mg daily. As of 06/25/2021 her treatment was put on hold due to a decline in her absolute neutrophil count to just under 1300. The following months she was able to restart the ibrutinib at 420 mg daily. Her other medical illnesses includehypertension, hyperlipidemia, fibromyalgia, and degenerative arthritis/degenerative disease of the spine. She has had multiple surgeries on both the cervical and lumbar spine. She reportedly was found to be positive for the Factor V Leiden mutation. She has history of smoking for 30 years, up to 2 packs of cigarettes daily. She quit smoking in 2006. INTERIM HISTORY: On 11/13/2021 she presented to the emergency room with a 2-week history of increased shortness of breath and weakness. Her CT pulmonary angiogram showed no evidence of pulmonary embolus. There were no pulmonary nodules or infiltrates noted and there were no other acute findings. She was treated for acute bronchitis. She is seen now for a follow-up visit. She says she has been sick for 2 months. She has been very tired and she has very limited activity. ECOG score is 2. She has no appetite, and she has been losing weight. She has had episodes of getting hot and sweaty both during the daytime and at night. She thinks she has having fever, though she has not documented it. She has had sore throat, and she has a very bad cough, though nonproductive. Her breathing is shallow. She is on home oxygen. She has been having pain on both sides of her chest. She has had some nausea and she has ongoing problems with constipation. Bladder function has been adequate, though she does have some stress incontinence. She says she hurts everywhere. She has headache and she has been having significant problems with equilibrium. She has no numbness/paresthesia or other focal neurologic symptoms. She has easy bruising. Medications: Allopurinol 1 Tablet (of 300 mg) Oral daily, Atorvastatin Calcium 1 Tablet (of 20 mg) Oral at bedtime, B-1 1 Tablet (of 100 mg) Oral daily, Benzonatate 1 Tablet (of 100 mg) Capsule Oral t.i.d. PRN, Calcium Citrate + D 1 Tablet (of 315-200 mg - Units) Oral b.i.d., Cyclobenzaprine HCl 1 - 2 Tablet (of 10 mg) Oral b.i.d., Doxycycline 1 Capsule Capsule Delayed Release Oral b.i.d., Doxycycline Hyclate 1 Tablet (of 100 mg) Oral b.i.d., Ferrous Sulfate 1 Tablet (of 325 (65 fe) mg) Oral daily, Folic Acid 1 Tablet (of 1 mg) Oral daily, Imodium A-D 1 Capsule (of 2 mg) Oral daily, Levothyroxine Sodium 1 Tablet (of 50 mcg) Oral daily, LORazepam 1 - 2 Tablet (of 0.5 mg) Oral t.i.d., Metoprolol Tartrate (25 mg) Tablet Oral Take as Directed, Multivitamin Adult 1 Tablet Oral daily, Pantoprazole Sodium 1 Tablet (of 40 mg) Tablet, enteric coated Oral daily, Potassimin 1 Tablet Oral b.i.d., Prochlorperazine Maleate 1 Tablet (of 10 mg) Oral q 4 hours PRN, rOPINIRole HCl 2 Tablet (of 0.25 mg) Oral at bedtime, Stool Softener 1 Tablet (of 100 mg) Oral daily, traZODone HCl 0.5 - 1 Tablet (of 50 mg) Oral at bedtime, Vitamin C 1 Capsule (of 500 mg) Oral daily Allergies: Cortisone Acetate, Demerol, Dilaudid, Haldol, and Morphine Sulfate. Vital Signs: Performed on Nov 24, 2021 15:30 Height - 59.00 in Weight - 111.6 lbs (LOW) BSA - 1.44 sq.m BMI - 22.54 Temperature - 99.2 F (HIGH) Pulse - 111 /min (HIGH) Respiration - 16 /min BP - 104/67 mm(hg) O2 Sat - 91 % (LOW) Pain - 6 Fatigue - 10 Physical Examination: Constitutional - She appears generally weak and chronically ill, Eyes - Sclerae nonicteric. Conjunctivae clear, ENMT - No lesions noted in the oral cavity, Hematologic/Lymphatic - No cervical, clavicular, or axillary adenopathy, Respiratory - Lungs show diminished air movement bilaterally. There is no wheezing, Cardiovascular - Heart rhythm is regular. There is a mild tachycardia. There is no murmur, gallop, or rub noted, Abdomen - Soft. Liver is not enlarged. Spleen is not palpable. There is no abdominal mass or ascites noted and there is no inguinal adenopathy, Extremities - No edema. There are purpuric lesions on both arms, Neurologic - No focal neurologic deficits noted. Lab/Imaging: Test performed on Nov 24, 2021 13:03 Sodium 130 mmol/L Potassium 4.2 mmol/L Chloride 92 mmol/L CO2 28 mmol/L Anion Gap 14.2 BUN 12 mg/dL Creatinine 0.8 mg/dL Cr Clearance (Est) 62.0100 mL/min eGFR 73.2 mL/min Glucose 88 mg/dL Osmolality - Calculated 269 mOsm/kg Calcium 12.4 mg/dL Protein, Total 7.3 g/dL Albumin 3.8 g/dL Globulin 3.5 g/dL Bilirubin, Total 0.5 mg/dL ALT (SGPT) 10 U/L AST (SGOT) 28 U/L Alkaline Phosphatase 75 IU/L WBC 15.4 10 3/uL RBC 4.29 10 6/uL HGB 13.0 g/dL HCT 38.8 % MCV 90.4 fl MCH 30.3 pg MCHC 33.5 g/dL RDW 13.2 % Platelet Count 284 10 3/cmm MPV 11.3 fL Neutrophils 11.23 10 3/uL Lymphocytes 1.9 10 3/uL Monocytes 2.0 10 3/uL Eosinophils 0.1 10 3/uL Basophils 0.1 10 3/uL Neutrophil % 73.2 % Lymphocyte % 12.2 % Monocyte % 12.7 % Eosinophil % 0.5 % Basophils % 0.7 % NRBC % 0 % Problem List: 1. Waldenstr???m macroglobulinemia. 2. Peripheral neuropathy. 3. Hypertension. 4. Hyperlipidemia. 5. Fibromyalgia. 6. Degenerative arthritis and degenerative disease of the spine. She has associated cervical spinal canal stenosis. 7. She was reportedly found to be positive for the Factor V Leiden mutation. Problems Addressed with this Encounter and Plan: Patient with lymphoproliferative disorder with associated IgM monoclonal gammopathy. 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 The MYD88 mutation was detected, consistent with Waldenstr???m macroglobulinemia. She has significant peripheral neuropathy, which I have assumed to be related. Her treatment has included two 4-week courses of weekly rituximab, administered in January and in May 2020, together with ibrutinib 420 mg daily. Overall, she has tolerated the treatment well. She had a very good objective response, though without significant change in her clinical status. In September 2020 her ibrutinib was temporarily put on hold due to visual changes, but these were ultimately felt to be more likely associated with gabapentin. As of her follow-up visit on 10/27/2020 when she restarted ibrutinib at 420 mg daily. However, it was subsequently put on hold again due worsening equilibrium/balance. She had follow-up with Dr. 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 As of her follow-up visit on 02/25/2021 she restarted ibrutinib 420 mg daily. Unfortunately, despite the improvement in her IgM level, she continued to have significant peripheral neuropathy symptoms and she also continued to have somewhat marginal performance status. As of 06/24/2021 her ibrutinib was put on hold due to a decrease in her absolute neutrophil count. The following months she was able to restart the ibrutinib at 420 mg daily. She comes in now with multiple complaints including severe weakness/fatigue, cough with increased shortness of breath, dysequilibrium, and generalized pain. She thinks she may be having intermittent fever, but not documented. The underlying cause for all of this is uncertain. A recent CT pulmonary angiogram showed no acute findings and her laboratory studies last week showed no increase in her M protein. However, she now has leukocytosis and she has developed hypercalcemia. She will be given IV hydration today, I will check blood and urine cultures. She will stop the ibrutinib. She will be scheduled for restaging CT scans of the chest, abdomen, and pelvis. She will have further evaluation as indicated. Signed By: Robin Solorzano M.D. <<Signature on File>>
== END 2021-11-24 14:31 | disposition home or self-care (01) ==
LOC: ONCMED 11-25 09:06
PROVIDERS: PCP Physician Assistant; Visit Provider Internal Medicine Medical Oncology
DX: C88.0 Waldenstrom macroglobulinemia (principal); D47.2 Monoclonal gammopathy; G62.9 Polyneuropathy, unspecified; H53.9 Unspecified visual disturbance; R53.1 Weakness; R53.83 Other fatigue; E87.8 Other disorders of electrolyte and fluid balance, not elsewhere classified; D72.829 Elevated white blood cell count, unspecified; E83.52 Hypercalcemia; Z79.899 Other long term (current) drug therapy
CPT/HCPCS: 96360; 99215

== ENCOUNTER 2021-11-25 12:15 | Inpatient (IN) | payer MEDICARE, MEDICAID, SELFPAY ==
[2021-11-25] VITALS (10 sets, daily range): BP systolic 117–151; BP diastolic 84–95; PULSE 103–112; RESP 16–21; TEMP 35.3–36.8; O2SAT 87–98; BMI 19.1
--- NOTE | 2021-11-25 12:16 | W.ED.WEAKNES ---
HPI - Weakness General: Chief complaint: Recheck/Abnormal Lab/Rx Stated complaint: ABNORMAL LABS/WEAKNESS Time Seen by Provider: 11/25/21 12:16 History of Present Illness: Ms. Kinney is a 61-year-old lady with complex past medical history including hypertension, hyperlipidemia, Waldenstrom macroglobulinemia, chronic hypoxic respiratory failure on 2 L at baseline who presents to the emergency department due to abnormal labs. The patient herself reports feeling worse for a number of weeks now however denies specific changes other than generally not feeling well. She was somewhat surprised by the level of concern regarding her health today. She denies recent falls, specific infectious symptoms, or other new issues. Intensity of generalized symptoms is moderate. Course has been worsening. No other specific changes in health, exacerbating, or alleviating factors identified. Upon clarification of patient's history she does endorse being prescribed doxycycline and she thinks that she has been taking it however per pharmacy med rec likely not taking her prescribed, she is unsure of exactly why however believes that she may have had pneumonia. I did speak with Dr. Solorzano prior to patient's arrival. He reports that the patient's family has expressed concerns recently over the past day or so regarding confusion for the patient. Additionally for weeks now the patient has had fairly significant decline. He does not believe that this is related to the patient's underlying hematologic abnormality however he is uncertain of the cause. Labs yesterday did show hypercalcemia of unclear etiology. Onset (ago): week(s) Duration: progressively worsening Location: generalized Severity: moderate Review of Systems General: Reports: 10 or more systems reviewed and unremarkable except in HPI and below PFSH ED PFSH: Medical History Anxiety Carpal tunnel syndrome, bilateral upper limbs Cervical post-laminectomy syndrome Degenerative arthritis Fibromyalgia Hyperlipidemia Hypersomnolence Hypertension Hypertension Hypothyroidism IgM monoclonal gammopathy of uncertain significance Lumbar post-laminectomy syndrome Lumbar radiculopathy Peripheral neuropathy Restless leg syndrome Tear meniscus knee Waldenstrom macroglobulinemia Surgical History H/O section History of cervical spinal surgery [facility]: 02/14/2017 Posterolateral cervical fusion C2-C6 03/02/2016 C3-C4 ACDFF, removal of prior anterior cervical plate, C4-C5 2004 C4-C5 ACDFF All operative reports scanned to chart History of section, low transverse X2 History of facial surgery 1992 Following trauma, x3 History of lumbar surgery 2013, 2011 and 2010 [facility]: Lumbar fusion/fixation History of shoulder surgery Right x2 Family History Mother Lung disease Father Myocardial infarction Hypertension Diabetes Social History Alcohol intake: current Alcohol intake frequency: few times a week Household members: significant other Marital status: Life Partner Current occupational status: disabled History of recent travel: No Physical Exam Const: COMMON NORMALS: alert GENERAL APPEARANCE: cooperative, well developed and ill appearing (Chronically, mild to moderate) HENMT: COMMON NORMALS: normocephalic and atraumatic HEAD & SCALP: normocephalic and atraumatic THROAT: posterior oropharynx normal Eye: COMMON NORMALS: conjunctivae normal CONJUNCTIVA: Yes conjunctivae normal SCLERA: sclerae normal Neck/C-Spine: COMMON NORMALS: supple GENERAL: Yes trachea midline Resp: COMMON NORMALS: normal respiratory effort EFFORT & INSPECTION: Yes able to speak in complete sentences Cardio: COMMON NORMALS: regular rhythm RATE: tachycardic RHYTHM: regular rhythm GI: COMMON NORMALS: Soft to palpation PALPATION: Yes Soft to palpation and No Tenderness to palpation present (GI) PERCUSSION: normal to percussion Extremity: GENERAL: Yes normal exam except as noted and No edema Neuro: COMMON NORMALS: moves all extremities, no focal motor deficits and no sensory deficits noted SENSORIUM/ORIENTATION: Yes alert and Yes Orientation impaired Psych: COMMON NORMALS: mental status grossly normal and Normal thought process present THOUGHT PROCESS: Normal thought process present Course ED course: - Patient was seen and evaluated by me at bedside - Patient placed on cardiac monitors, IV access obtained - Initial evaluation notable for exam as above. Nonfocal neurologic exam notable some of patient's history appears unreliable/patient mildly encephalopathic - Labs and xrays personally interpreted by me -Fluids and antibiotics given - Labs notable for no leukocytosis. Normal hemoglobin. Metabolic panel with mild evidence of dehydration. ABG notable for hypoxemia. Patient has had increased baseline oxygen. Delta troponin negative. - Imaging notable for negative head CT. Chest x-ray notable for bilateral patchy lower lobe opacities. - Upon serial reexamination after treatment the patient was mildly improved. - Based on patient history, evaluation, and testing as interpreted the most likely cause of the patient's condition is pneumonia. - The results of ED evaluation were discussed with the patient including plan for admission due to requirement for level of care not available if discharged to prevent significant worsening/deterioration. She had been treated outpatient with doxycycline however either has not improved or is not taking medications properly. Given degree of encephalopathy associated with worsening symptoms despite outpatient therapy she warrants inpatient observation. -Hospitalist service contacted and agreed to admit the patient. - Patient was admitted without further deterioration or significant events. Note: Click bubbles or prepopulated ferrara in note writing are used for assistance with data collection and billing and are inherently more limited than narrative and other text portions of this note. Please use narrative for additional clinical history and defer to narrative/free test for any case of contradictory information. If information appears in only free text or click bubble it should be considered present or absent as reported. Please contact note movie writer for clarifications of clinical information or contradictory information. MDM is a brief summary, contradictory or erroneous seeming information should be clarified and full note should be reviewed. Vital Signs: Vital signs: Vital Signs Temperature 98.1 F 11/27/21 11:43 Pulse Rate 93 11/27/21 11:43 Respiratory Rate 18 11/27/21 11:43 Blood Pressure 122/71 11/27/21 11:43 Pulse Oximetry 88 L 11/27/21 13:01 MDM - Weakness Medical Decision Making 61-year-old lady with history of Waldenstrom macroglobulinemia presenting due to abnormal labs as well as confusion and generalized worsening of clinical status. Patient likely has pneumonia and has failed outpatient therapy. Admitted given degree of nonfocal encephalopathy as well as failed outpatient therapy. Medical Records I reviewed the patient's medical records. Lab Data I reviewed the patient's lab results. : 11/27/21 02:50 11/27/21 02:50 Radiology Impressions Chest X-Ray 11/25/21 12:28 Impression: Bilateral patchy lower lobe opacities which could represent atelectasis and/or pneumonia and recommend repeat chest x-ray in 2-[address] 11/25/21 12:28 IMPRESSION: 1. No evidence of intracranial hemorrhage or mass effect. 2. Mild small vessel changes. Moderate parenchymal volume loss. 3. No acute intracranial findings. Chest CT 11/25/21 18:12 IMPRESSION: There are no acute concerning abnormalities. Laboratory Results WBC 6.6 10^3/uL (4.0-10.0) 11/25/21 13:20 RBC 4.26 10^6/uL (4.1-5.3) 11/25/21 13:20 Hgb 13.0 g/dL (11.5-15.3) 11/25/21 13:20 Hct 38.9 % (37.0-47.0) 11/25/21 13:20 MCV 91.3 fl (81-99) 11/25/21 13:20 MCH 30.5 pg (28.0-34.0) 11/25/21 13:20 MCHC 33.4 g/dL (30.0-36.0) 11/25/21 13:20 RDW 13.5 % (12.1-15.1) 11/25/21 13:20 Plt Count 215 10^3/cmm (130-400) 11/25/21 13:20 MPV 11.4 fL (7.4-10.4) H 11/25/21 13:20 Neut % (Auto) 57.9 % 11/25/21 13:20 Lymph % (Auto) 18.6 % 11/25/21 13:20 [place] % (Auto) 17.0 % 11/25/21 13:20 Eos % (Auto) 3.0 % 11/25/21 13:20 Baso % (Auto) 1.8 % 11/25/21 13:20 Neut # (Auto) 3.84 10^3/uL (1.8-7.7) 11/25/21 13:20 Lymph # (Auto) 1.2 10^3/uL (0.8-4.8) 11/25/21 13:20 [place] # (Auto) 1.1 10^3/uL (0.2-0.9) H 11/25/21 13:20 Eos # (Auto) 0.2 10^3/uL (0.0-0.8) 11/25/21 13:20 Baso # (Auto) 0.1 10^3/uL (0.0-0.1) 11/25/21 13:20 Nucleated RBC % (auto) 0 % 11/25/21 13:20 Nucleated RBCs # 0.0 /100WBC 11/25/21 13:20 D-Dimer 0.65 ug/mIFEU (0-0.59) H 11/25/21 13:20 Sodium 134 mmol/L (136-145) L 11/25/21 13:20 Potassium 3.6 mmol/L (3.5-5.1) 11/25/21 13:20 Chloride 95 mmol/L (98-107) L 11/25/21 13:20 Carbon Dioxide 26 mmol/L (22-29) 11/25/21 13:20 Anion Gap 16.6 (5-19) 11/25/21 13:20 BUN 9 mg/dL (8-23) 11/25/21 13:20 Creatinine 0.7 mg/dL (0.5-0.9) 11/25/21 13:20 GFR Calculation 85.4 mL/min (90-130) L 11/25/21 13:20 Glucose 78 mg/dL (65-115) 11/25/21 13:20 Calculated Osmolality 276 mOsm/kg (285-295) L 11/25/21 13:20 Calcium 10.9 mg/dL (8.5-10.5) H 11/25/21 13:20 Phosphorus 3.3 mg/dL (2.5-4.5) 11/25/21 13:20 Magnesium 1.1 mg/dL (1.7-2.3) L 11/25/21 13:20 Total Bilirubin 0.5 mg/dL (0.15-1.2) 11/25/21 13:20 AST 32 U/L (0-32) 11/25/21 13:20 ALT 13 U/L (0-33) 11/25/21 13:20 Alkaline Phosphatase 70 IU/L (35-105) 11/25/21 13:20 Troponin T Baseline 26 ng/L (0-10) H 11/25/21 13:20 Troponin T 120 Minute 21.88 ng/L (0-10) H 11/25/21 15:40 Delta Troponin T -4.12 ABS# (0-10) L 11/25/21 15:40 NT-Pro-B Natriuret Pep 137 pg/mL (0-125) H 11/25/21 13:20 Total Protein 7.4 g/dL (6.6-8.7) 11/25/21 13:20 Albumin 4.1 g/dL (3.5-5.2) 11/25/21 13:20 Globulin 3.3 g/dL (1.3-4.6) 11/25/21 13:20 Procalcitonin 0.05 ng/mL (0-0.5) 11/25/21 13:20 Procalcitonin Cancelled 11/25/21 13:20 TSH 5.48 uIU/mL (0.27-4.20) H 11/25/21 13:20 TSH 5.78 uIU/mL (0.27-4.20) H 11/25/21 13:20 Free T4 1.89 ng/dL (0.82-1.77) H 11/25/21 13:20 Free T3 2.3 PG/ML (2.0-4.4) 11/25/21 13:20 Coronavirus 229E (PCR) Not detected (NOT DETECT) 11/25/21 13:20 SARS-CoV-2 (PCR) Not detected (NOT DETECT) 11/25/21 13:20 EKG Data EKG 1: I personally reviewed and interpreted this EKG as follows: EKG interpretation date: 11/25/21 EKG interpretation time: 13:40 Interpretation: Twelve-lead EKG shows a regular rhythm at a rate of 107. OH interval 164. QRS duration 94. QTc 387. Normal [place]. . Interpretation: Sinus tachycardia rhythm. . EKG 2: I personally reviewed and interpreted this EKG as follows: EKG interpretation date: 11/25/21 EKG interpretation time: 15:03 Interpretation: Twelve-lead EKG shows a regular rhythm at a rate of 107. OH interval 160. QRS duration 96. QTc 374. Normal [place]. . Interpretation: Sinus rhythm. Tachycardia. Discharge Plan Discharge Patient Disposition: Placed in Observation Admit Provider: Chacho Mancuso Clinical Impression: Pneumonia, Acute and chronic respiratory failure with hypoxia Discharge Diet: Usual diet Discharge Activity: Resume usual activity and Increase activity as tolerated Coding Level of Care Code ED Manager Grant for Chg Fwd Exam Comprehensive
--- NOTE | 2021-11-25 12:28 | CT_ITS ---
WS: [id number] CT HEAD TECHNIQUE: Noncontrast CT of the head obtained from the skullbase to the vertex. CLINICAL INFORMATION: confusion, gait disturbance COMPARISON: MRI February 02, [address] August 13, 2020 DLP: 759.[address] scans at [facility] use at least one of these dose optimization techniques: automated e xposure control; mA and/or kV adjustment per patient size (includes targeted exams where dose is matc hed to clinical indication); or iterative reconstruction. FINDINGS: No evidence of intracranial hemorrhage or mass effect. Ventricular system and basal cisterns are [place] nt. Mild small vessel changes with moderate parenchymal volume loss. No extra-axial fluid collections . No evidence of mass or mass effect. Normal anne-white differentiation. Vascular calcification. Paranasal sinuses and mastoid air cells are well aerated. .Normal visualized soft tissues. CT/CT head wo con* [id number] IMPRESSION: 1. No evidence of intracranial hemorrhage or mass effect. 2. Mild small vessel changes. Moderate parenchymal volume loss. 3. No acute intracranial findings.
--- NOTE | 2021-11-25 12:28 | XR_ITS ---
WS: [id number] Portable AP upright chest, 11/25/2021 Clinical Data: weakness, abnormal breath sounds Comparison: Portable chest, 11/13/2021. Findings: There is minimal bilateral patchy opacity in the lower lobes. These opacities could represe nt atelectasis and/or early pneumonia. The diaphragms are flattened. The heart is normal. The pulmona ry vascularity is not remarkable. The patient has had anterior and posterior cervical fusions. There is a healed lateral right sixth rib fracture. XR/XR chest 1V portable [id number] Impression: Bilateral patchy lower lobe opacities which could represent atelectasis and/or pneumonia and recommend repeat chest x-ray in 2-3 days.
--- NOTE | 2021-11-25 12:29 | ECG_ITS ---
[facility] Test Date: 2021-11-25 Pat Name: Yulisa Kinney Department: Room: Gender: Female Biosolids Management Technician: : 1960 Requested By: Jacobo Coyne Order Number: [id number] Caro MD: Mikey Rangel M.D. Measurements Intervals [place] Rate: 107 P: 74 NM: 164 QRS: 65 QRSD: 94 T: 46 QT: 324 QTc: 433 Interpretive Statements SINUS TACHYCARDIA NONSPECIFIC T-WAVE ABNORMALITY Compared to ECG 11/13/2021 11:56:53 T-wave abnormality now present Electronically Signed On 11-25-2021 17:55:19 CDT by Mikey Rangel M.D. [id number]
[2021-11-25 13:40] LABS: Basophils # 0.1 10^3/uL (0.0-0.1); Basophils % 1.8 %; Eosinophils # 0.2 10^3/uL (0.0-0.8); Hematocrit 38.9 % (37.0-47.0); Lymphocytes # 1.2 10^3/uL (0.8-4.8); Lymphocytes % 18.6 %; Mean Corpuscular HGB Conc 33.4 g/dL (30.0-36.0); Mean Corpuscular Hemoglobin 30.5 pg (28.0-34.0); Mean Corpuscular Volume 91.3 fl (81-99); Mean Platelet Volume 11.4 fL (7.4-10.4); Monocytes # 1.1 10^3/uL (0.2-0.9); Neutrophils # 3.84 10^3/uL (1.8-7.7); Neutrophils % 57.9 %; Nucleated Red Blood Cells % 0 %; Platelet Count 215 10^3/cmm (130-400); Red Blood Count 4.26 10^6/uL (4.1-5.3); Red Cell Distribution Width 13.5 % (12.1-15.1); White Blood Count 6.6 10^3/uL (4.0-10.0)
[2021-11-25 14:00] LABS: Troponin(5th) Baseline 26 ng/L (0-10)
[2021-11-25] MEDS: lactated ringers 1,000 ML 999 ML IV (14:00)
[2021-11-25 14:07] LABS: Alanine Aminotransferase 13 U/L (0-33); Albumin Level 4.1 g/dL (3.5-5.2); Alkaline Phosphatase 70 IU/L (35-105); Anion Gap 16.6 (5-19); Aspartate Amino Transferase 32 U/L (0-32); Blood Urea Nitrogen 9 mg/dL (8-23); Calcium 10.9 mg/dL (8.5-10.5); Carbon Dioxide 26 mmol/L (22-29); Chloride 95 mmol/L (98-107); Globulin 3.3 g/dL (1.3-4.6); Glomerular Filtration Rate 85.4 mL/min (90-130); Glucose 78 mg/dL (65-115); Magnesium 1.1 mg/dL (1.7-2.3); NT Pro B Type Natriuretic Pept 137 pg/mL (0-125); Osmolality Calculated 276 mOsm/kg (285-295); Phosphorus 3.3 mg/dL (2.5-4.5); Potassium 3.6 mmol/L (3.5-5.1); Sodium 134 mmol/L (136-145); Thyroid Stimulating Hormone 5.48 uIU/mL (0.27-4.20); Total Bilirubin 0.5 mg/dL (0.15-1.2); Total Protein 7.4 g/dL (6.6-8.7)
--- NOTE | 2021-11-25 14:29 | ECG_ITS ---
[facility] Test Date: 2021-11-25 Pat Name: Yulisa Kinney Department: Room: Gender: Female Pediatric Registered Nurse: : 1960 Requested By: Jacobo Coyne Order Number: [id number] Caro MD: Mikey Rangel M.D. Measurements Intervals [place] Rate: 107 P: 81 [place]: 160 QRS: 57 QRSD: 96 T: 5 QT: 311 QTc: 415 Interpretive Statements SINUS TACHYCARDIA NONSPECIFIC T-WAVE ABNORMALITY Compared to ECG 11/25/2021 13:36:47 No significant changes Electronically Signed On 11-25-2021 17:59:38 CDT by Mikey Rangel M.D. [id number]
[2021-11-25] MEDS: cefTRIAXone 1,000 MG in sodium chloride 0.9% (plus) 50 ML 100 MG IV (14:52)
[2021-11-25 14:57] LABS: Free T4 Free Thyroxine 1.89 ng/dL (0.82-1.77)
[2021-11-25] MEDS: doxycycline 100 MG in sodium chloride 0.9% (plus) 100 ML IV (15:04)
[2021-11-25 15:57] LABS: Adenovirus Not Detected (NOT DETECT); Chlamydia Pneumoniae Not Detected (NOT DETECT); Coronavirus 229E,HKU1,NL63,OC4 Not Detected (NOT DETECT); Human Metapneumovirus Not Detected (NOT DETECT); Human Rhinovirus/Enterovirus Not Detected (NOT DETECT); Influenza A Not Detected (NOT DETECT); Influenza A H1 Not Detected (NOT DETECT); Influenza A H1-2009 Not Detected (NOT DETECT); Influenza A H3 Not Detected (NOT DETECT); Influenza B Not Detected (NOT DETECT); Mycoplasma Pneumoniae Not Detected (NOT DETECT); Parainfluenza Virus Type 1 Not Detected (NOT DETECT); Parainfluenza Virus Type 2 Not Detected (NOT DETECT); Parainfluenza Virus Type 3 Not Detected (NOT DETECT); Parainfluenza Virus Type 4 Not Detected (NOT DETECT); Respiratory Syncytial Virus A Not Detected (NOT DETECT); Respiratory Syncytial Virus B Not Detected (NOT DETECT); SARS-COV-2 Not Detected (NOT DETECT)
[2021-11-25 16:30] LABS: Troponin 5 2HR 21.88 ng/L (0-10)
[2021-11-25 16:31] LABS: Troponin 5 2HR Delta -4.12 ABS# (0-10)
[2021-11-25] MEDS: magnesium sulfate premix 2 GM/50 ML PIGGYBACK IV (16:58)
--- NOTE | 2021-11-25 17:27 | P.HP_ITS ---
Providers/Chief Complaint Primary Care Provider: Lucy Dean Chief Complaint: ABNORMAL LABS/WEAKNESS History of Present Illness Yulisa Kinney is a 61 year old female with past medical history of Waldenstrom macroglobulinemia, chronic hypoxic respiratory failure on 2 L nasal cannula, hypertension, hyperlipidemia, fibromyalgia, arthritis, factor V Leyden mutation who present to the ER with complaints of cough, difficulty in breathing ongoing for last 3 weeks. States symptoms have been getting worse so she presented to the ER. Associated with expectoration, runny nose and postnasal drip. Denies any sick contacts. States have been feeling extremely weak along with malaise for last 10 days. Has been on oral doxycycline for last 5 days as an outpatient. Denies any diarrhea, headache, dizziness. Has not been vaccinated for COVID-19. Review of Systems General: Reports: 10 or more systems reviewed and unremarkable except in HPI and below Const: Denies: fever(s), chills, body aches, change in appetite, change in weight, malaise, night sweats, diaphoresis, change in sleep pattern, daytime sleepiness or snoring Eyes: Denies: change in vision, blurry vision, photophobia, eye discomfort or eye discharge ENMT: Denies: throat pain, enlarged tonsils, hoarseness, mouth pain, oral sores, dry mouth, tinnitus, nasal congestion or post nasal drip Card: Denies: chest pain, palpitations, irregular heart rhythm, edema, swelli ng of feet/ankles, lightheadedness, syncope, pre-syncope, dyspnea on exertion, orthopnea, leg pain with exertion or acrocyanosis Resp: Denies: dyspnea, productive cough, non-productive cough, wheezing, stridor, pain on inspiration, change in phlegm color, hemoptysis or chest congestion GI: Denies: abdominal pain, nausea, vomiting, hematemesis, coffee ground emesis, dysphagia, heartburn, diarrhea, constipation, bloating, GI cramping, adolfo nge in bowel habits, pain on defecation, hematochezia or melena : Denies: flank pain, dysuria, urinary frequency, urinary urgency, urinary hesitancy, nocturia or hematuria Musc: Denies: neck pain, back pain, extremity pain, joint pain, joint swelling, joint redness, joint stiffness or limited range of motion Neuro: Denies: headache(s), numbness in extremities, weakness in extremities, sensory changes, lack of coordination, difficulty walking, frequent falls, dizziness, vertigo, confusion, Slurred speech present, difficulty communicating thoughts or seizure-like activity Psych: Denies: anxiety, depression, mood swings, panic attacks, hopelessness or irritability Endo: Denies: polyuria, polydipsia, tired all the time, cold intolerance, exce ssive sweating, flushing or heat intolerance [place]/Lymph: Denies: easy bruising or easy bleeding All/Imm: Denies: tongue swelling, facial swelling or acute wheezing Medications/Allergies Home Medications Medication Instructions Recorded Confirmed Last Taken Type ascorbic acid (vitamin C) 500 mg 500 mg PO BID 12/05/19 11/25/21 11/25/21 History tablet (Vitamin C) calcium carbonate 500 mg (1,250 See Rx Instructions .ROUTE .COMPLEX 12/05/19 11/25/21 11/25/21 History mg)-vitamin D3 200 unit tablet (Calcium 500 + D) cyclobenzaprine 10 mg tablet See Rx Instructions .ROUTE .COMPLEX 12/05/19 11/25/21 11/25/21 History multivitamin 1 tab PO DAILY 12/05/19 11/25/21 11/25/21 History allopurinol 300 mg tablet 300 mg PO DAILY 02/26/20 11/25/21 11/25/21 History atorvastatin 20 mg tablet (Lipitor) 20 mg PO DAILY 02/26/20 11/25/21 11/24/21 History ibrutinib 140 mg tablet (Imbruvica) 420 mg PO DAILY 02/26/20 11/25/21 11/25/21 History lorazepam 0.5 mg tablet 0.5 - 1 mg PO TID PRN 02/26/20 11/25/21 06/23/21 History prochlorperazine maleate 10 mg 10 mg PO Q4H PRN 02/26/20 11/25/21 02/25/20 History tablet ropinirole 0.25 mg tablet 0.25 - 0.5 mg PO BEDTIME 02/26/20 11/25/21 11/24/21 History docusate sodium 100 mg capsule 100 mg PO DAILY 05/13/20 11/25/21 11/25/21 History (Stool Softener) ferrous gluconate 236 mg (27 mg 236 mg PO DAILY 05/13/20 11/25/21 11/25/21 History iron) tablet folic acid 1 mg tablet 1 mg PO DAILY 05/13/20 11/25/21 11/25/21 History loperamide 2 mg capsule 2 mg PO Q6H PRN 05/13/20 11/25/21 06/23/21 History metoprolol tartrate 25 mg tablet See Rx Instructions .ROUTE .COMPLEX 05/13/20 11/25/21 11/25/21 History pantoprazole 40 mg tablet,delayed 40 mg PO DAILY 05/13/20 11/25/21 11/25/21 History release thiamine HCl (vitamin B1) 100 mg 100 mg PO DAILY 05/13/20 11/25/21 11/25/21 History tablet trazodone 50 mg tablet 50 mg PO BEDTIME 05/13/20 11/25/21 11/24/21 History Seated walker #1 ea 01/27/21 11/25/21 Unknown Rx hydrochlorothiazide 12.5 mg capsule 12.5 mg PO DAILY 06/02/21 11/25/21 11/25/21 History hydrocodone 5 mg-acetaminophen 325 1 tab PO Q4H PRN 7 Days #30 tab 06/30/21 11/25/21 Unknown Rx mg tablet benzonatate 100 mg capsule 100 mg PO TID PRN #30 cap 11/13/21 11/25/21 Unknown Rx doxycycline hyclate 100 mg capsule 100 mg PO BID 11/25/21 11/25/21 11/25/21 History gabapentin 300 mg capsule See Rx Instructions .ROUTE .COMPLEX 11/25/21 11/25/21 11/25/21 History levothyroxine 75 mcg tablet 37.5 mcg PO DAILY 11/25/21 11/25/21 11/25/21 History sucralfate 1 gram tablet (Carafate) 1 g PO BID 11/25/21 11/25/21 11/25/21 History Allergies Allergy/AdvReac Type Severity Reaction Status Date / Time hydrocortisone Allergy Severe Elevated Verified 07/14/21 10:46 [From Cortizone-10] heart rate hydromorphone [From Dilaudid] Allergy Severe Hallucinati Verified 07/14/21 10:46 ons meperidine [From Demerol] Allergy Severe Excessive Verified 07/14/21 10:46 vomitting morphine Allergy Severe Heart rate Verified 07/14/21 10:46 drops cortisone Allergy Unknown headache Verified 07/14/21 10:46 haloperidol [From Haldol] Allergy difficulty Verified 07/14/21 10:46 breathing PFSH Acute PFSH: Medical History (Updated 11/25/21 @ 18:31 by Chacho Mancuso MD) Anxiety Carpal tunnel syndrome, bilateral upper limbs Cervical post-laminectomy syndrome Degenerative arthritis Fibromyalgia Hyperlipidemia Hypersomnolence Hypertension Hypothyroidism IgM monoclonal gammopathy of uncertain significance Lumbar post-laminectomy syndrome Lumbar radiculopathy Peripheral neuropathy Restless leg syndrome Tear meniscus knee Waldenstrom macroglobulinemia Surgical History (Updated 11/25/21 @ 18:31 by Chacho Mancuso MD) H/O section History of cervical spinal surgery [facility]: 02/14/2017 Posterolateral cervical fusion C2-C6 03/02/2016 C3-C4 ACDFF, removal of prior anterior cervical plate, C4-C5 2004 C4-C5 ACDFF All operative reports scanned to chart History of section, low transverse X2 History of facial surgery 1991 Following trauma, x3 History of lumbar surgery 2013, 2011 and 2010 [facility]: Lumbar fusion/fixation History of shoulder surgery Right x2 Family History Mother Lung disease Father Myocardial infarction Hypertension Diabetes Social History Alcohol intake: current Alcohol intake frequency: few times a week Household members: significant other Marital status: Life Partner Current occupational status: disabled History of recent travel: No Vitals/I&O/Wt Last Vital Signs Temp 98.2 F 11/25/21 14:16 Pulse 110 H 11/25/21 14:16 Resp 18 11/25/21 14:16 BP 117/93 11/25/21 14:16 Pulse Ox 94 11/25/21 14:16 11/25/21 11/25/21 11/25/21 06:59 14:59 22:59 Intake Total 1150 / 1150 Balance 1150 / 1150 Weight last 48 hrs Weight 43.091 kg Physical Exam Narrative: General: No acute distress, AO x3, bitemporal wasting HEENT: PERRLA, pupils bilaterally equal and reactive Chest: Bilateral bronchial breath sounds, rhonchi all over the lung ferrara occasionally, equal good air entry bilaterally CVS: S1-S2 regular, no murmurs, no tachycardia, no gallops, no rubs Abdomen: Soft, nontender, no organomegaly, bowel sounds present Neuro: No focal deficits, no facial deformity, AO x3, power 5/5 in all limbs Data : 11/25/21 13:20 11/25/21 13:20 Micro: Microbiology 11/25/21 13:20 Blood Culture - Preliminary Blood SPECIMEN COLLECTED 11/25/21 13:20 Blood Culture - Preliminary Blood SPECIMEN COLLECTED A&P Assessment and plan (1) Acute and chronic respiratory failure with hypoxia: Status: Acute (2) Pneumonia: Status: Acute (3) Hypertension: Status: Acute (4) Waldenstrom macroglobulinemia: Status: Acute (5) Hypothyroidism: Status: Acute (6) IgM monoclonal gammopathy of uncertain significance: Status: Acute Plan Acute on chronic hypoxic respiratory failure secondary to COPD exacerbation: Cannot rule out viral bronchitis. Start patient on ceftriaxone and azithromycin. Sputum culture, blood culture, urine Legionella, bacterial antigen, MRSA swab. We will de-escalate antibiotics as per culture results. Check flu swab. COVID-[address] chest without contrast. DuoNeb every 6 hour, budesonide twice daily. Solu-Medrol 40 mg IV every 8 hourly. Oxygen supplementation keeping saturation over 88%. Continue other chronic oral medications including allopurinol, atorvastatin, iron supplementation, folic acid, hydrocodone, levothyroxine. Hypertension: Goal blood pressure less than 140/90 [place]. Continue with home dose of metoprolol. Will uptitrate as per goal. Hypothyroidism: Check TSH, free T3, free T4. For now continue with home dose of levothyroxine. Full code. Protonix for PUD prophylaxis. Lovenox for DVT prophylaxis. Attestations Medical Necessity Statement*: Admission for more than 2 midnights for management of acute on chronic hypoxic respiratory failure secondary to COPD exacerbation, possible community-acquired pneumonia Time Spent in Patient Care: Greater than 35 minutes Coding Level of Care Code Acute Environmental Tech for [facility] Fw Diagnoses Acute and chronic respiratory failure with hypoxia J96.21 Pneumonia J18.9 Hypertension I10 Waldenstrom macroglobulinemia C88.0 Hypothyroidism E03.9 IgM monoclonal gammopathy of uncertain significance D47.2
[2021-11-25 17:32] LABS: ABG PCO2 38.4 mmHg (35-45); ABG PH Result 7.44 (7.35-7.45); Arterial Blood Gas Hematocrit 34.3 % (37-47); Base Excess ABG 1.9 mmol/L (-2.0-2.0); Blood Gas Allen Test Pos; Blood Gas Operator Identificat CAK; Blood Gas Sample Site Radial, left; Blood Gas Sample Type Arterial; HCO3 ABG 26.1 mmol/L (22-26); Oxygen Device NC; PO2 ABG 65.4 mmHg (80.0-100.0)
[2021-11-25 18:10] LABS: D Dimer 0.65 ug/mIFEU (0-0.59)
--- NOTE | 2021-11-25 18:12 | CTR_ITS ---
PROCEDURE INFORMATION: Exam: CT Chest Without Contrast; Diagnostic Exam date and time: 11/25/2021 7:55 PM Age: 61 years old Clinical indication: Condition or disease; Lung condition and disease; Copd; Complications not specified; Primary cancer: Lymphoma; Additional info: Copd/pna TECHNIQUE: Imaging protocol: Diagnostic computed tomography of the chest without contrast. Radiation optimization: All CT scans at this facility use at least one of these dose optimization techniques: automated exposure control; mA and/or kV adjustment per patient size (includes targeted exams where dose is matched to clinical indication); or iterative reconstruction. COMPARISON: CT angio chest PE protcl [id number] 11/13/2021 1:34 PM RADIATION DOSE METRICS: Total DLP (mGy-cm): 294.06 FINDINGS: Lungs: There is lung emphysema. No lung mass or significant consolidation. There is a calcified granuloma in the left upper lobe of the lung. Pleural spaces: Unremarkable. No pneumothorax. No pleural effusion. Heart: There is calcification of the left anterior descending, right coronary and circumflex arteries. No cardiomegaly. No pericardial effusion. Aorta: Unremarkable. No aortic aneurysm. Lymph nodes: Unremarkable. No enlarged lymph nodes. Bones/joints: Degenerative change is identified in the spine. There is no evidence for acute fracture or malalignment. Soft tissues: Unremarkable. CT/CT chest con [id number] IMPRESSION: There are no acute concerning abnormalities.
--- NOTE | 2021-11-25 18:29 | ECG_ITS ---
[facility] Test Date: 2021-11-25 Pat Name: Yulisa Kinney Department: Room: 267 Gender: Female Bar Host/Hostess: : 1960 Requested By: Jacobo Coyne Order Number: [id number] Caro MD: Mikey Rangel M.D. Measurements Intervals [place] Rate: 106 P: 75 LA: 183 QRS: 50 QRSD: 98 T: 5 QT: 338 QTc: 449 Interpretive Statements SINUS TACHYCARDIA NONSPECIFIC T-WAVE ABNORMALITY Compared to ECG 11/25/2021 14:57:50 No significant changes Electronically Signed On 11-25-2021 21:27:37 CDT by Mikey Rangel M.D. [id number]
[2021-11-25 18:45] LABS: Add Urine Microscopic? NO; Charge for UA Resulting for Rev
[2021-11-25 18:49] LABS: Procalcitonin 0.05 ng/mL (0-0.5); Thyroid Stimulating Hormone 5.78 uIU/mL (0.27-4.20)
[2021-11-25 19:07] LABS: Bilirubin Urine Neg (Negative); Blood Urine Neg (Negative); Glucose Urine UA Norm (Normal); Ketones Urine Negative (Negative); Leukocyte Esterase Urine Negative (Negative); Nitrate Urine Negative (Negative); Protein Urine Neg (Negative); Urine Appearance Clear (CLEAR); Urine Color Yellow (Yellow); Urobilinogen Urine Norm (Negative); pH Urine 7 (5-7)
[2021-11-25 19:20] LABS: Potassium, Radom Urine 22 mmol/L; Urine Random Chloride 65 mmol/L; Urine Random Sodium 64 mmol/L
[2021-11-25 20:12] LABS: Influenza A by IFA Negative (Negative); Influenza B by IFA Negative (Negative)
[2021-11-25 20:37] LABS: Troponin 5 6HR 22.88 ng/L (0-10); Troponin 5 6HR Delta -3.12 ng/L (0-12)
[2021-11-25 20:53] LABS: T3 Free 2.3 PG/ML (2.0-4.4)
[2021-11-25] MEDS: budesonide 0.5 mg/2 mL Neb INHALATION (21:40)
[2021-11-25] MEDS: ipratropium-albuterol 3 mL Neb INHALATION (21:40)
--- NOTE | 2021-11-25 21:44 | PC.NURSE ---
i reported high pulse 107 to nurse
[2021-11-25] MEDS: trazodone 50 mg Tablet PO (21:51)
[2021-11-25] MEDS: sennosides 8.6 mg Tablet 17.2 MG PO (21:51)
[2021-11-25] MEDS: ferrous gluconate 324 mg Tablet PO (21:51)
[2021-11-25] MEDS: gabapentin 300 mg Capsule 600 MG PO (21:51)
[2021-11-25] MEDS: ropinirole 0.25 mg Tablet PO (21:52)
[2021-11-25] MEDS: sucralfate 1 gm Tablet PO (21:52)
[2021-11-25] MEDS: enoxaparin 40 mg/0.4 mL Syringe SUBCUT (21:52)
[2021-11-26] VITALS (17 sets, daily range): BP systolic 100–135; BP diastolic 56–79; PULSE 86–120; RESP 16–18; TEMP 36.4–36.8; O2SAT 90–96
--- NOTE | 2021-11-26 00:05 | PC.NURSE ---
i reported high pulse 112 to nurse
[2021-11-26 00:13] LABS: Iron 33 ug/dL (37-145); Percent Saturation 10.8 % (20-50); Total Iron Binding Capacity 305 mcg/dl; Unsaturated Iron Binding 272 ug/dL (112-347)
[2021-11-26] MEDS: ipratropium-albuterol 3 mL Neb INHALATION ×4 (02:11→20:11)
[2021-11-26 03:56] LABS: Basophils % 0.3 %; Eosinophils % 0.2 %; Hematocrit 34.8 % (37.0-47.0); Hemoglobin 11.5 g/dL (11.5-15.3); Lymphocytes # 0.5 10^3/uL (0.8-4.8); Lymphocytes % 8.7 %; Mean Corpuscular Hemoglobin 29.9 pg (28.0-34.0); Mean Corpuscular Volume 90.4 fl (81-99); Mean Platelet Volume 12.2 fL (7.4-10.4); Monocytes # 0.2 10^3/uL (0.2-0.9); Monocytes % 3.6 %; Neutrophils # 4.96 10^3/uL (1.8-7.7); Neutrophils % 85.8 %; Nucleated Red Blood Cells % 0 %; Platelet Count 200 10^3/cmm (130-400); Red Blood Count 3.85 10^6/uL (4.1-5.3); Red Cell Distribution Width 13.3 % (12.1-15.1); White Blood Count 5.8 10^3/uL (4.0-10.0)
[2021-11-26 04:11] LABS: Alanine Aminotransferase 14 U/L (0-33); Albumin Level 3.5 g/dL (3.5-5.2); Alkaline Phosphatase 61 IU/L (35-105); Anion Gap 16.5 (5-19); Aspartate Amino Transferase 31 U/L (0-32); Blood Urea Nitrogen 9 mg/dL (8-23); Calcium 9.7 mg/dL (8.5-10.5); Carbon Dioxide 24 mmol/L (22-29); Chloride 99 mmol/L (98-107); Cholesterol 112 mg/dL (0-200); Globulin 2.8 g/dL (1.3-4.6); Glucose 150 mg/dL (65-115); HDL Cholesterol 51 mg/dL (60-100); LDL Cholesterol Calculated 51 mg/dL (50-129); Magnesium 1.4 mg/dL (1.7-2.3); Osmolality Calculated 286 mOsm/kg (285-295); Phosphorus 2.3 mg/dL (2.5-4.5); Sodium 137 mmol/L (136-145); Total Bilirubin 0.2 mg/dL (0.15-1.2); Total Protein 6.3 g/dL (6.6-8.7); Triglycerides 50 mg/dL (0-150); VLDL Cholestrol Calculation 10 mg/dL (0-30)
[2021-11-26 04:18] LABS: Potassium 2.5 mmol/L (3.5-5.1)
--- NOTE | 2021-11-26 05:10 | PC.NURSE ---
i reported high pulse 109 to nurse
[2021-11-26] MEDS: potassium chloride ER 20 mEq Tablet 40 MEQ PO ×2 (05:53→17:07)
[2021-11-26] MEDS: metoprolol tartrate 25 mg Tablet PO (05:54)
[2021-11-26] MEDS: lidocaine 1% INJ 20 mL 5 ML IV (05:54)
[2021-11-26] MEDS: levothyroxine 25 mcg Tablet PO (05:54)
[2021-11-26] MEDS: potassium chloride premix 100 ML 25 MEQ IV (05:55)
[2021-11-26] MEDS: budesonide 0.5 mg/2 mL Neb INHALATION ×2 (08:39→20:10)
[2021-11-26] MEDS: docusate sodium 100 mg Capsule PO (09:07)
[2021-11-26] MEDS: sucralfate 1 gm Tablet PO ×2 (09:07→17:07)
[2021-11-26] MEDS: azithromycin 250 mg Tablet 500 MG PO (09:08)
[2021-11-26] MEDS: pantoprazole DR 40 mg Tablet PO (09:08)
[2021-11-26] MEDS: gabapentin 300 mg Capsule PO (09:08)
[2021-11-26] MEDS: atorvastatin 40 mg Tablet 20 MG PO (09:08)
[2021-11-26] MEDS: ferrous gluconate 324 mg Tablet PO ×2 (09:08→17:07)
[2021-11-26] MEDS: allopurinol 300 mg Tablet PO (09:09)
[2021-11-26] MEDS: folic acid 1 mg Tablet PO (09:09)
[2021-11-26] MEDS: thiamine 100 mg Tablet PO (09:09)
[2021-11-26 11:10] LABS: Bacillus cereus group Not Detected (NOT DETECT); Bacillus subtillis group Not Detected (NOT DETECT); Corynebacterium Not Detected (NOT DETECT); Cutibacterium acnes (P.acnes) Not Detected (NOT DETECT); Enterococcus Not Detected (NOT DETECT); Enterococcus faecalis Not Detected (NOT DETECT); Enterococcus faecium Not Detected (NOT DETECT); Lactobacillus species Not Detected (NOT DETECT); Listeria Not Detected (NOT DETECT); Listeria monocytogenes Not Detected (NOT DETECT); Micrococcus Not Detected (NOT DETECT); Pan Candida Not Detected (NOT DETECT); Pan Gram-Negative Not Detected (NOT DETECT); Staphylococcus epidermidis Not Detected (NOT DETECT); Staphylococcus lugdunensis Not Detected (NOT DETECT); Staphylococcus species Detected (NOT DETECT); Streptococcus agalactiae Not Detected (NOT DETECT); Streptococcus anginosus group Not Detected (NOT DETECT); Streptococcus pneumoniae Not Detected (NOT DETECT); Streptococcus pyogenes Not Detected (NOT DETECT); Streptococcus species Not Detected (NOT DETECT); mecA Not Detected (NOT DETECT); mecC Not Detected (NOT DETECT)
--- NOTE | 2021-11-26 14:08 | P.PN_ITS ---
Subjective Subjective: No acute events overnight. Patient lying comfortably in bed. Awake and alert able to have complete conversation. States she is feeling a lot better. On room air today. Saturating 93%. Has remained afebrile. Vitals/I&O/Wt Last Vital Signs Temp 97.7 F 11/26/21 11:23 Pulse 98 11/26/21 11:23 Resp 16 11/26/21 11:23 BP 122/73 11/26/21 11:23 Pulse Ox 93 11/26/21 11:23 11/25/21 11/26/21 11/26/21 22:59 06:59 14:59 Intake Total 1440 / 1440 240 / 240 Output Total 180 / 180 Balance 1440 / 1440 -180 / 1260 240 / 240 Weight last 48 hrs Weight 55.066 kg Weight 45.813 kg Weight 43.091 kg Physical Exam Narrative: General: No acute distress, AO x3, bitemporal wasting HEENT: PERRLA, pupils bilaterally equal and reactive Chest: Bilateral bronchial breath sounds, rhonchi all over the lung ferrara occasionally, equal good air entry bilaterally CVS: S1-S2 regular, no murmurs, no tachycardia, no gallops, no rubs Abdomen: Soft, nontender, no organomegaly, bowel sounds present Neuro: No focal deficits, no facial deformity, AO x3, power 5/5 in all limbs Data : 11/26/21 02:43 11/26/21 02:43 Micro: Microbiology 11/25/21 13:20 Blood Culture - Preliminary Blood NEGATIVE TO DATE 11/26/21 12:27 Blood Culture - Preliminary Blood SPECIMEN COLLECTED 11/26/21 12:20 Blood Culture - Preliminary Blood SPECIMEN COLLECTED 11/25/21 13:20 Blood Culture - Preliminary Blood Coagulase negativ staphylococc 11/26/21 06:02 MRSA Culture - Final Nose 11/25/21 18:30 Bacterial Antigens - Final Urine Kidney 11/25/21 18:30 Legionella Urinary Antigen - Final Unknown Source A&P Assessment and plan (1) Acute and chronic respiratory failure with hypoxia: Status: Acute (2) Pneumonia: Status: Acute (3) Hypertension: Status: Acute (4) Waldenstrom macroglobulinemia: Status: Acute (5) Hypothyroidism: Status: Acute (6) IgM monoclonal gammopathy of uncertain significance: Status: Acute Plan Acute on chronic hypoxic respiratory failure secondary to COPD exacerbation: Cannot rule out viral bronchitis. Continue with IV ceftriaxone and oral azithromycin. Will wean down as per culture results. Urine Legionella bacterial antigen MRSA swab negative. Follow-up blood culture and urine culture. Flu, COVID-[address] chest results. DuoNeb every 6 hour, budesonide twice daily. Wean to Solu-Medrol IV every 12 hours. Oxygen supplementation keeping saturation over 88%. Continue other chronic oral medications including allopurinol, atorvastatin, iron supplementation, folic acid, hydrocodone, levothyroxine. Hypertension: Goal blood pressure less than 140/90 mmHg. Heart rate mildly elevated. Increase metoprolol to 50 mg twice daily. Hypothyroidism: Appreciate thyroid panel. TSH elevated, free T4 elevated. Decrease levothyroxine to 25 mcg daily. Full code. Protonix for PUD prophylaxis. Lovenox for DVT prophylaxis. Attestations Medical Necessity Statement*: For management of hypoxia secondary to COPD exac erbation in setting of viral bronchitis. Time Spent in Patient Care: Greater than 35 minutes Coding Level of Care Code Acute Billing Services Manager for [facility] Fwd Diagnoses Acute and chronic respiratory failure with hypoxia J96.21 Pneumonia J18.9 Hypertension I10 Waldenstrom macroglobulinemia C88.0 Hypothyroidism E03.9 IgM monoclonal gammopathy of uncertain significance D47.2
[2021-11-26 16:34] LABS: Anion Gap 16.4 (5-19); Blood Urea Nitrogen 15 mg/dL (8-23); Calcium 9.5 mg/dL (8.5-10.5); Carbon Dioxide 19 mmol/L (22-29); Chloride 102 mmol/L (98-107); Glomerular Filtration Rate 85.4 mL/min (90-130); Glucose 190 mg/dL (65-115); Osmolality Calculated 284 mOsm/kg (285-295); Potassium 3.4 mmol/L (3.5-5.1); Sodium 134 mmol/L (136-145)
[2021-11-26] MEDS: cefTRIAXone 1,000 MG in sodium chloride 0.9% (plus) 50 ML 100 MG IV (17:08)
[2021-11-26] MEDS: gabapentin 300 mg Capsule 600 MG PO (20:17)
[2021-11-26] MEDS: metoprolol tartrate 50 mg Tablet PO (20:17)
[2021-11-26] MEDS: enoxaparin 40 mg/0.4 mL Syringe SUBCUT (20:17)
[2021-11-26] MEDS: ropinirole 0.25 mg Tablet PO (20:17)
[2021-11-26] MEDS: trazodone 50 mg Tablet PO (20:17)
[2021-11-27] VITALS (9 sets, daily range): BP systolic 100–130; BP diastolic 59–74; PULSE 90–105; RESP 16–18; TEMP 36.5–36.8; O2SAT 88–94
[2021-11-27] MEDS: ipratropium-albuterol 3 mL Neb INHALATION ×2 (03:15→08:50)
[2021-11-27 03:50] LABS: Basophils % 0.2 %; Hematocrit 31.5 % (37.0-47.0); Hemoglobin 10.5 g/dL (11.5-15.3); Lymphocytes # 0.8 10^3/uL (0.8-4.8); Lymphocytes % 4.3 %; Mean Corpuscular HGB Conc 33.3 g/dL (30.0-36.0); Mean Corpuscular Hemoglobin 30.3 pg (28.0-34.0); Mean Corpuscular Volume 90.8 fl (81-99); Mean Platelet Volume 11.9 fL (7.4-10.4); Monocytes # 1.2 10^3/uL (0.2-0.9); Monocytes % 6.2 %; Neutrophils # 16.28 10^3/uL (1.8-7.7); Neutrophils % 88.3 %; Nucleated Red Blood Cells % 0 %; Platelet Count 221 10^3/cmm (130-400); Red Blood Count 3.47 10^6/uL (4.1-5.3); Red Cell Distribution Width 13.7 % (12.1-15.1); White Blood Count 18.4 10^3/uL (4.0-10.0)
[2021-11-27 04:11] LABS: Alanine Aminotransferase 10 U/L (0-33); Albumin Level 3.3 g/dL (3.5-5.2); Alkaline Phosphatase 53 IU/L (35-105); Anion Gap 13.6 (5-19); Aspartate Amino Transferase 24 U/L (0-32); Blood Urea Nitrogen 13 mg/dL (8-23); Calcium 9.2 mg/dL (8.5-10.5); Carbon Dioxide 21 mmol/L (22-29); Chloride 103 mmol/L (98-107); Globulin 3.1 g/dL (1.3-4.6); Glucose 116 mg/dL (65-115); Osmolality Calculated 277 mOsm/kg (285-295); Potassium 4.6 mmol/L (3.5-5.1); Sodium 133 mmol/L (136-145); Total Bilirubin 0.2 mg/dL (0.15-1.2); Total Protein 6.4 g/dL (6.6-8.7)
[2021-11-27] MEDS: levothyroxine 25 mcg Tablet PO (05:17)
--- NOTE | 2021-11-27 05:20 | PC.NURSE ---
SHIFT SUMMARY Has not slept much tonight but says she doesn't usually. Watched TV until late. Wears O2 at 2l per NC at night. Says some SOB with exertion and occ dry cough. Does c/o some pain with deep breaths. Up to bathroom well tonight. Telemetry showing SR/ST
[2021-11-27] MEDS: ferrous gluconate 324 mg Tablet PO (08:10)
[2021-11-27] MEDS: docusate sodium 100 mg Capsule PO (08:10)
[2021-11-27] MEDS: pantoprazole DR 40 mg Tablet PO (08:10)
[2021-11-27] MEDS: allopurinol 300 mg Tablet PO (08:11)
[2021-11-27] MEDS: atorvastatin 40 mg Tablet 20 MG PO (08:11)
[2021-11-27] MEDS: sucralfate 1 gm Tablet PO (08:11)
[2021-11-27] MEDS: folic acid 1 mg Tablet PO (08:12)
[2021-11-27] MEDS: azithromycin 250 mg Tablet 500 MG PO (08:12)
[2021-11-27] MEDS: thiamine 100 mg Tablet PO (08:12)
[2021-11-27] MEDS: metoprolol tartrate 50 mg Tablet PO (08:12)
[2021-11-27] MEDS: gabapentin 300 mg Capsule PO (08:12)
[2021-11-27] MEDS: budesonide 0.5 mg/2 mL Neb INHALATION (08:50)
--- NOTE | 2021-11-27 11:51 | PC.CHAP ---
Pastoral Care Encounter/Spiritual Assessment Type of Contact [] Declined environmental economist visit [] Patient/Family/Request visit [] Outpatient visit [] Follow-up visit [] Physician referral [] Code/Alert [X] Routine visit [] Staff referral [] Actively dying [] Patient sleeping [] Family support [] [] Out of room [] Palliative care [] [] Receiving care in room [] Pre-surgical visit [] Trauma [] Long length of stay [] ICU visit [] Other: Relational/Emotional Strength [X] Patient feels connected with others/family/visitors/staff [X] Distress [] Loneliness/isolation [] Abandonment Spirituality of Patient [X] Person of Ruthie [] Attends Yarsani of their Ruthie [X] Believes in Prayer [] Reads Bible or Caodaism materials [X] There are Spiritual issues to be addressed Physical Therapy Coordinator Interventions [X] Prayer [X] Active listening [X] Non-anxious presence [X] Spiritual/emotional support [] Crisis/trauma care [] Spiritual counseling [] Bereavement support [] Provided bereavement packet [X] Provided Bible/devotional materials [] Provided toy/stuffed animal, coloring book to patient or family member [] Provided Communion [] Anointing/[place] [] Salvation [X] Completed spiritual assessment [] Other: Impact on Illness or Injury [] Angry [] Fearful [] Anxious [] Often cries [] Exhaustion [X] Unable to work [] Unable to attend scientologist [] Unable to walk/stand [] Unable to read [] Unable to drive [] Unable to eat/drink [] Unable to sleep [] Unable to be with family [] Patient intubated [] Other: Summary: Pt has a 2+ year history with a rare cancer diagnosis. Current hospitalization also involved pneumonia. Pt is being discharged today. Pt overall in good spirits. Visit was lengthy as pt discussed her relationships with her children, major losses and mistakes in her life, and need for someone to talk with. [employer] Bread was provided with number for chaplains. Time spent with patient: 30 min
--- NOTE | 2021-11-27 12:26 | PM.DCS ---
Discharge Providers Date of Admission: 11/25/21 16:31 Date of Discharge: November 27, 2021 Attending Provider at Admission: Chacho Mancuso MD Attending Provider at Discharge: Chacho Mancuso MD Primary Care Provider: Lucy Dean Diagnoses at Discharge Discharge Diagnosis (1) Acute and chronic respiratory failure with hypoxia: Status: Acute (2) Pneumonia: Status: Acute (3) Hypertension: Status: Acute (4) Waldenstrom macroglobulinemia: Status: Acute (5) Hypothyroidism: Status: Acute (6) IgM monoclonal gammopathy of uncertain significance: Status: Acute Reason for Visit Reason for Visit: ABNORMAL LABS/WEAKNESS Hospital Course Hospital Course Yulisa Kinney is a 61 year old female with past medical history of Waldenstrom macroglobulinemia, chronic hypoxic respiratory failure on 2 L nasal cannula, hypertension, hyperlipidemia, fibromyalgia, arthritis, factor V Leyden mutation who present to the ER with complaints of cough, difficulty in breathing ongoing for last 3 weeks.? States symptoms have been getting worse so she presented to the ER.? Associated with expectoration, runny nose and postnasal drip.? Denies any sick contacts.? States have been feeling extremely weak along with malaise for last 10 days.? Has been on oral doxycycline for last 5 days as an outpatient.? Denies any diarrhea, headache, dizziness.? Has not been vaccinated for COVID-19. Patient admitted for further evaluation of hypoxia and weakness. It is believed her symptoms are most likely secondary to COPD exacerbation from possible viral bronchitis. Bacterial pneumonia was ruled out with negative consolidation on CT imaging. COVID-19 and flu swab came back negative. Patient was treated with steroid and evaluation treatment. She responded well to the treatment and has been back to her baseline oxygen supplementation for last 48 hours. During hospitalization she remained afebrile. She is been discharged hemodynamically stable condition on oral Levaquin and Augmentin for 3 more days, prednisone 40 mg for next 5 days with advised to follow-up with oncology and her primary care provider on set up appointments within next 2 weeks for repeat CBC. Physical Exam Narrative: General: No acute distress, AO x3, bitemporal wasting HEENT: PERRLA, pupils bilaterally equal and reactive Chest: Bilateral bronchial breath sounds, rhonchi all over the lung ferrara occasionally, equal good air entry bilaterally CVS: S1-S2 regular, no murmurs, no tachycardia, no gallops, no rubs Abdomen: Soft, nontender, no organomegaly, bowel sounds present Neuro: No focal deficits, no facial deformity, AO x3, power 5/5 in all limbs Discharge Data Studies Completed and Pending Completed Studies During Hospitalization Category Date Time Status CT chest wo con [id number] Urgent Cat Scan 11/25/21 18:[address] head wo con* [id number] Urgent Cat Scan 11/25/21 12:28 Completed XR chest 1V portable [id number] Urgent Exams 11/25/21 12:28 Completed Pending at discharge Category Date Time Status Blood Culture Routine Lab 11/26/21 12:27 Results Blood Culture Stat Lab 11/25/21 13:20 Results Sputum Culture and Gram Stain Stat Lab 11/26/21 11:45 Results Radiology Impressions Chest X-Ray 11/25/21 12:28 Impression: Bilateral patchy lower lobe opacities which could represent atelectasis and/or pneumonia and recommend repeat chest x-ray in 2-[address] 11/25/21 12:28 IMPRESSION: 1. No evidence of intracranial hemorrhage or mass effect. 2. Mild small vessel changes. Moderate parenchymal volume loss. 3. No acute intracranial findings. Chest CT 11/25/21 18:12 IMPRESSION: There are no acute concerning abnormalities. Laboratory Results WBC 18.4 10^3/uL (4.0-10.0) H 11/27/21 02:50 RBC 3.47 10^6/uL (4.1-5.3) L 11/27/21 02:50 Hgb 10.5 g/dL (11.5-15.3) L 11/27/21 02:50 Hct 31.5 % (37.0-47.0) L 11/27/21 02:50 MCV 90.8 fl (81-99) 11/27/21 02:50 MCH 30.3 pg (28.0-34.0) 11/27/21 02:50 MCHC 33.3 g/dL (30.0-36.0) 11/27/21 02:50 RDW 13.7 % (12.1-15.1) 11/27/21 02:50 Plt Count 221 10^3/cmm (130-400) 11/27/21 02:50 MPV 11.9 fL (7.4-10.4) H 11/27/21 02:50 Neut % (Auto) 88.3 % 11/27/21 02:50 Lymph % (Auto) 4.3 % 11/27/21 02:50 [place] % (Auto) 6.2 % 11/27/21 02:50 Eos % (Auto) 0.0 % 11/27/21 02:50 Baso % (Auto) 0.2 % 11/27/21 02:50 Neut # (Auto) 16.28 10^3/uL (1.8-7.7) H 11/27/21 02:50 Lymph # (Auto) 0.8 10^3/uL (0.8-4.8) 11/27/21 02:50 [place] # (Auto) 1.2 10^3/uL (0.2-0.9) H 11/27/21 02:50 Eos # (Auto) 0.0 10^3/uL (0.0-0.8) 11/27/21 02:50 Baso # (Auto) 0.0 10^3/uL (0.0-0.1) 11/27/21 02:50 Nucleated RBC % (auto) 0 % 11/27/21 02:50 Nucleated RBCs # 0.0 /100WBC 11/27/21 02:50 D-Dimer 0.65 ug/mIFEU (0-0.59) H 11/25/21 13:20 Specimen Type Arterial 11/25/21 17:20 Sample Site Radial, left 11/25/21 17:20 ABG pH 7.44 (7.35-7.45) 11/25/21 17:20 ABG pCO2 38.4 mmHg (35-45) 11/25/21 17:20 ABG pO2 65.4 mmHg (80.0-100.0) L 11/25/21 17:20 ABG HCO3 26.1 mmol/L (22-26) H 11/25/21 17:20 ABG Base Excess 1.9 mmol/L (-2.0-2.0) 11/25/21 17:20 Mark Test Pos 11/25/21 17:20 Hematocrit 34.3 % (37-47) L 11/25/21 17:20 O2 Delivery Device Nc 11/25/21 17:20 O2 Liters/Min 2.0 % 11/25/21 17:20 Optical Instrument Repairer ID Cak 11/25/21 17:20 Sodium 133 mmol/L (136-145) L 11/27/21 02:50 Potassium 4.6 mmol/L (3.5-5.1) 11/27/21 02:50 Chloride 103 mmol/L (98-107) 11/27/21 02:50 Carbon Dioxide 21 mmol/L (22-29) L 11/27/21 02:50 Anion Gap 13.6 (5-19) 11/27/21 02:50 BUN 13 mg/dL (8-23) 11/27/21 02:50 Creatinine 0.6 mg/dL (0.5-0.9) 11/27/21 02:50 GFR Calculation 102.0 mL/min (90-130) 11/27/21 02:50 Glucose 116 mg/dL (65-115) H 11/27/21 02:50 Calculated Osmolality 277 mOsm/kg (285-295) L 11/27/21 02:50 Calcium 9.2 mg/dL (8.5-10.5) 11/27/21 02:50 Phosphorus 2.3 mg/dL (2.5-4.5) L 11/26/21 02:43 Magnesium 1.4 mg/dL (1.7-2.3) L 11/26/21 02:43 Iron 33 ug/dL (37-145) L 11/25/21 19:50 TIBC 305 mcg/dl 11/25/21 19:50 % Saturation 10.8 % (20-50) L 11/25/21 19:50 Unsat Iron Binding 272 ug/dL (112-347) 11/25/21 19:50 Total Bilirubin 0.2 mg/dL (0.15-1.2) 11/27/21 02:50 AST 24 U/L (0-32) 11/27/21 02:50 ALT 10 U/L (0-33) 11/27/21 02:50 Alkaline Phosphatase 53 IU/L (35-105) 11/27/21 02:50 Troponin T Baseline 26 ng/L (0-10) H 11/25/21 13:20 Troponin T 120 Minute 21.88 ng/L (0-10) H 11/25/21 15:40 Delta Troponin T -4.12 ABS# (0-10) L 11/25/21 15:40 Troponin T Hi Sens 6Hr 22.88 ng/L (0-10) H 11/25/21 19:50 Troponin T Hi Sens 6Hr Delta -3.12 ng/L (0-12) L 11/25/21 19:50 NT-Pro-B Natriuret Pep 137 pg/mL (0-125) H 11/25/21 13:20 Total Protein 6.4 g/dL (6.6-8.7) L 11/27/21 02:50 Albumin 3.3 g/dL (3.5-5.2) L 11/27/21 02:50 Globulin 3.1 g/dL (1.3-4.6) 11/27/21 02:50 Triglycerides 50 mg/dL (0-150) 11/26/21 02:43 Cholesterol 112 mg/dL (0-200) 11/26/21 02:43 LDL Cholesterol, Calc 51 mg/dL (50-129) 11/26/21 02:43 Total VLDL Cholesterol 10 mg/dL (0-30) 11/26/21 02:43 HDL Cholesterol 51 mg/dL (60-100) L 11/26/21 02:43 Cholesterol/HDL Ratio 2.20 mg/dL (0.0-4.40) 11/26/21 02:43 Procalcitonin 0.05 ng/mL (0-0.5) 11/25/21 13:20 Procalcitonin Cancelled 11/25/21 13:20 TSH 5.48 uIU/mL (0.27-4.20) H 11/25/21 13:20 TSH 5.78 uIU/mL (0.27-4.20) H 11/25/21 13:20 Free T4 1.89 ng/dL (0.82-1.77) H 11/25/21 13:20 Free T3 2.3 PG/ML (2.0-4.4) 11/25/21 13:20 Urine Color Yellow (Yellow) 11/25/21 18:30 Urine Appearance Clear (CLEAR) 11/25/21 18:30 Urine pH 7 (5-7) 11/25/21 18:30 Ur Specific [place] 1.010 (1.005-1.030) 11/25/21 18:30 Urine Protein Neg (Negative) 11/25/21 18:30 Urine Glucose (UA) Norm (Normal) 11/25/21 18:30 Urine Ketones Negative (Negative) 11/25/21 18:30 Urine Blood Neg (Negative) 11/25/21 18:30 Urine Nitrate Negative (Negative) 11/25/21 18:30 Urine Bilirubin Neg (Negative) 11/25/21 18:30 Urine Urobilinogen Norm mg/dL (Negative) 11/25/21 18:30 Ur Leukocyte Esterase Negative (Negative) 11/25/21 18:30 Ur Random Sodium 64 mmol/L 11/25/21 18:30 Ur Random Potassium 22 mmol/L 11/25/21 18:30 Ur Random Chloride 65 mmol/L 11/25/21 18:30 Coronavirus 229E (PCR) Not detected (NOT DETECT) 11/25/21 13:20 Influenza Type A Ag Negative (Negative) 11/25/21 19:40 Influenza Type B Ag Negative (Negative) 11/25/21 19:40 SARS-CoV-2 (PCR) Not detected (NOT DETECT) 11/25/21 13:20 Vitals Last Vital Signs Temp 98.1 F 11/27/21 11:43 Pulse 93 11/27/21 11:43 Resp 18 11/27/21 11:43 BP 122/71 11/27/21 11:43 Pulse Ox 91 11/27/21 11:43 Discharge Plan Discharge Patient Disposition: Home Condition: Stable Prescriptions: New levothyroxine 25 mcg Tablet 25 mcg PO QAM Qty: 30 0RF Augmentin 875-125 mg tablet 1 tab PO BID Qty: 6 0RF levofloxacin 500 mg tablet 500 mg PO Q24H 3 Days Qty: 3 0RF prednisone 20 mg tablet 20 mg PO BID 5 Days Qty: 10 0RF fluticasone propion-salmeterol [Advair Diskus] 250-50 mcg/dose blister with device 1 inh inhalation BID Qty: 60 0RF Spiriva with HandiHaler 18 mcg capsule, w/inhalation device 1 cap inhalation DAILY Qty: 30 0RF Rx Instructions: puncture 1 cap using device; one dose = 2 inhalations Continued (DME) Seated walker See Rx Instructions .Route .MEDSUPPLY Qty: 1 0RF Rx Instructions: As directed hydrochlorothiazide 12.5 mg capsule 12.5 mg PO DAILY 0RF folic acid 1 mg tablet 1 mg PO DAILY 0RF trazodone 50 mg tablet 50 mg PO BEDTIME 0RF pantoprazole 40 mg tablet,delayed release (DR/EC) 40 mg PO DAILY 0RF thiamine HCl (vitamin B1) 100 mg tablet 100 mg PO DAILY 0RF ferrous gluconate 236 mg (27 mg iron) tablet 236 mg PO DAILY 0RF loperamide 2 mg capsule 2 mg PO Q6H PRN (Reason: Diarrhea) 0RF docusate sodium [Stool Softener] 100 mg capsule 100 mg PO DAILY 0RF hydrocodone-acetaminophen 5-325 mg tablet 1 tab PO Q4H PRN (Reason: pain) 7 Days Qty: 30 0RF atorvastatin [Lipitor] 20 mg Tablet 20 mg PO DAILY 0RF prochlorperazine maleate 10 mg Tablet 10 mg PO Q4H PRN (Reason: Nausea) 0RF lorazepam 0.5 mg Tablet 0.5 - 1 mg PO TID PRN (Reason: Anxiety) 0RF ropinirole 0.25 mg Tablet 0.25 - 0.5 mg PO BEDTIME 0RF allopurinol 300 mg Tablet 300 mg PO DAILY 0RF Imbruvica 140 mg Tablet 420 mg PO DAILY 0RF benzonatate 100 mg capsule 100 mg PO TID PRN (Reason: cough) Qty: 30 1RF multivitamin Tablet 1 tab PO DAILY 0RF cyclobenzaprine 10 mg Tablet See Rx Instructions .ROUTE .COMPLEX 0RF Rx Instructions: 10 mg orally qam and 20mg po bedtime ascorbic acid (vitamin C) [Vitamin C] 500 mg Tablet 500 mg PO BID 0RF calcium carbonate-vitamin D3 [Calcium 500 + D] 500 mg(1,250mg) -200 unit Tablet See Rx Instructions .ROUTE .COMPLEX 0RF Rx Instructions: 1 tab orally in the morning/ 2 tabs orally in the evening Carafate 1 gram Tablet 1 g PO BID 0RF gabapentin 300 mg Capsule See Rx Instructions .ROUTE .COMPLEX 0RF Rx Instructions: 300 mg orally in the morning / 600 mg orally in the evening Changed metoprolol tartrate 25 mg tablet 50 mg PO BID Qty: 0 0RF Discontinued doxycycline hyclate 100 mg Capsule 100 mg PO BID 0RF levothyroxine 75 mcg tablet 37.5 mcg PO DAILY 0RF Discharge Orders: Discharge Order (Routine); Ordered 11/27/21 Ordered By: Chacho Mancuso Referrals: Lucy Dean PA [Primary Care Provider] - 7-10 days Discharge Diet: Usual diet Discharge Activity: Resume usual activity and Increase activity as tolerated Patient Instructions: Opioid Safety Activity Restrictions/Additional Instructions: Please follow-up with your primary care provider and oncology service as directed. Please try to follow-up with a primary care provider within next 2 weeks. Please repeat CBC within next 1 week. Take prednisone 40 mg daily for next 5 days. You will be on 2 antibiotics Augmentin and Levaquin for next 3 days. Augmentin is twice daily and Levaquin is once daily. Your dose of metoprolol has been increased to 50 mg twice daily and dose of levothyroxine has been changed to 25 mcg daily. Discharge Attestations Time Spent in Discharge Care*: greater than 30 min Specific Discharge Activities: educating patient, discussing with pcp/other providers, discussing with case reviewer/social workers/dc planners, documenting/other paperwork and evaluating patient/reviewing data Status at Discharge: Cognitive status at discharge: cognitively intact, Behavioral status at discharge: cooperative, Functional status at discharge: uses cane/walker, Overall status at discharge: patient is back to baseline Quality Metrics Clinical Quality Measures [ No reported AMI, CVA or VTE this stay] Coding Level of Care Code Acute Chg FW DC note Diagnoses Acute and chronic respiratory failure with hypoxia J96.21 Pneumonia J18.9 Hypertension I10 Waldenstrom macroglobulinemia C88.0 Hypothyroidism E03.9 IgM monoclonal gammopathy of uncertain significance D47.2
== END 2021-11-27 14:42 | disposition home or self-care (01) | DRG 190 ==
LOC: ER 16:30 → MEDSURG 20:53
PROVIDERS: Admitting Provider Student in an Organized Health Care Education/Training Program; Emergency Provider Emergency Medicine; PCP Physician Assistant; Visit Provider Student in an Organized Health Care Education/Training Program
DX: J44.1 Chronic obstructive pulmonary disease with (acute) exacerbation (principal); J96.21 Acute and chronic respiratory failure with hypoxia; J20.9 Acute bronchitis, unspecified; J44.0 Chronic obstructive pulmonary disease with (acute) lower respiratory infection; I10 Essential (primary) hypertension; E78.5 Hyperlipidemia, unspecified; C88.0 Waldenstrom macroglobulinemia; E03.9 Hypothyroidism, unspecified; D47.2 Monoclonal gammopathy
CPT/HCPCS: 36415; 36600; 70450; 71045; 71250; 80048; 80053; 80061; 81001; 81003; 82436; 82803; 83540; 83550; 83735; 83880; 84100; 84133; 84145; 84300; 84439; 84443; 84481; 84484; 85025; 85378; 85651; 86140; 86403; 87040; 87070; 87106; 87150; 87205; 87449; 87635; 87641; 87804; 93005; 94640; 94664; 96360; 96365; 96367; 96372; 99215; 99285; J0696; J1650; J2920; J3475; J3480; J3490; J7030; J7626; Q0144

== ENCOUNTER 2021-11-28 21:35 | Emergency (ER) | payer MEDICARE, MEDICAID, SELFPAY ==
[2021-11-28 21:44] VITALS: BP 185/92; PULSE 95; RESP 28; TEMP 36.2; O2SAT 97; BMI 21.8
--- NOTE | 2021-11-28 22:02 | XRR_ITS ---
PROCEDURE INFORMATION: Exam: XR Chest Exam date and time: 11/28/2021 10:26 PM Age: 61 years old Clinical indication: Dyspnea; Additional info: SOB cp TECHNIQUE: Imaging protocol: XR of the chest. Views: 1 view. COMPARISON: CT chest con [id number] 11/25/2021 7:55 PM FINDINGS: Lungs: Unremarkable. No consolidation. Mild severity emphysematous lung changes. Pleural spaces: Unremarkable. No pleural effusion. No pneumothorax. Heart/Mediastinum: Unremarkable. No cardiomegaly. Bones/joints: Unremarkable. XR/XR chest 1V portable [id number] IMPRESSION: No acute findings.
--- NOTE | 2021-11-28 22:03 | ECG_ITS ---
[facility] Test Date: 2021-11-28 Pat Name: Yulisa Kinney Department: Room: Gender: Female [employer]dn[employer]: : 1960 Requested By: Kemar Almanza Order Number: [id number] Caro MD: Mikey Rangel M.D. Measurements Intervals [place] Rate: 91 P: 80 [place]: 191 QRS: 77 QRSD: 86 T: 54 QT: 325 QTc: 400 Interpretive Statements SINUS RHYTHM Compared to ECG 11/25/2021 20:50:03 Sinus tachycardia no longer present T-wave abnormality no longer present Electronically Signed On 11-29-2021 9:00:15 CDT by Mikey Rangel M.D. [id number]
--- NOTE | 2021-11-28 22:05 | ED_ITS ---
HPI - SOB/Dyspnea General: Chief Complaint: Shortness of Breath/Dyspnea Stated Complaint: SOB Time Seen by Provider: 11/28/21 21:39 Source: patient History of Present Illness: HPI Narrative: 61-year-old female with a history of COPD presenting the day after discharge from the hospital. She notes that she was not able to fill her medications today at the pharmacy because it was closed. She notes that she awoke this morning feeling pretty good . While fixing dinner, she suddenly had increased chest pain and discomfort with tightness and sharpness. She said it was impossible to get her breath ambulance was called. She is feeling better now. She denies fever. She denies chills. She wears home oxygen at 2 L she states MD elicited complaint: shortness of breath and chest pain Pertinent past history: COPD Onset (ago): minute(s) Timing: constant and improved Severity: severe Exacerbating factors: exertion and coughing Relieving factors: nothing Known history of: COPD Associated symptoms: Reports chest congestion, chest pain, cough and extremity pain (Chronic neuropathy); Deny abdominal pain, diaphoresis, dizziness, fever(s), hemoptysis, nausea, orthopnea, syncope or vomiting Treatment prior to arrival: oxygen Review of Systems Const: Denies: fever(s) or diaphoresis ENMT: Denies: throat pain Card: Reports: chest pain; Denies: syncope or orthopnea Resp: Reports: dyspnea, productive cough and chest congestion; Denies: hemoptysis GI: Denies: abdominal pain, nausea or vomiting Musc: Reports: extremity pain (Chronic neuropathy) Neuro: Denies: headache(s) or dizziness Psych: Reports: anxiety [facility] ED 2 PFSH: Medical History Anxiety Carpal tunnel syndrome, bilateral upper limbs Cervical post-laminectomy syndrome Degenerative arthritis Fibromyalgia Hyperlipidemia Hypersomnolence Hypertension Hypertension Hypothyroidism IgM monoclonal gammopathy of uncertain significance Lumbar post-laminectomy syndrome Lumbar radiculopathy Peripheral neuropathy Restless leg syndrome Tear meniscus knee Waldenstrom macroglobulinemia Surgical History H/O section History of cervical spinal surgery [facility]: 02/14/2017 Posterolateral cervical fusion C2-C6 03/02/2016 C3-C4 ACDFF, removal of prior anterior cervical plate, C4-C5 2004 C4-C5 ACDFF All operative reports scanned to chart History of section, low transverse X2 History of facial surgery 1992 Following trauma, x3 History of lumbar surgery 2013, 2011 and 2010 [facility]: Lumbar fusion/fixation History of shoulder surgery Right x2 Family History Mother Lung disease Father Myocardial infarction Hypertension Diabetes Social History Alcohol intake: current Alcohol intake frequency: few times a week Household members: significant other Marital status: Life Partner Current occupational status: disabled History of recent travel: No Physical Exam Const: GENERAL APPEARANCE: cooperative, anxious and frail appearing HENMT: COMMON NORMALS: normocephalic, atraumatic and Normal external nose present HEAD & SCALP: normocephalic and atraumatic NOSE: Normal external nose present and Normal nares present Eye: COMMON NORMALS: Equal, round and reactive pupils present and EOMs intact bilaterally PUPIL: Yes Equal, round and reactive pupils present Chest: COMMONS NORMALS: normal inspection of the chest Resp: COMMON NORMALS: normal respiratory effort and No use of accessory muscles AUSCULTATION: rhonchi (left base, slight) Cardio: COMMON NORMALS: regular rate, regular rhythm and Peripheral pulses 2+ throughout RATE: regular rate RHYTHM: regular rhythm PERIPHERAL PULSES: Peripheral pulses 2+ throughout GI: COMMON NORMALS: Normal to inspection, nondistended, normoactive bowel sounds present, Soft to palpation and non-tender PALPATION: Yes Soft to palpation Extremity: COMMON NORMALS: no pedal edema Neuro: DIOGO COMA SCALE: document GCS findings Diogo coma scale eye opening: Spontaneous Diogo coma scale verbal response: Orientated Diogo coma scale motor response: Obey commands Diogo coma scale total score: 15 Psych: COMMON NORMALS: mental status grossly normal and cooperative Course Vital Signs: Vital signs: Vital Signs Temperature 97.2 F L 11/28/21 21:44 Pulse Rate 95 11/28/21 21:44 Respiratory Rate 28 H 11/28/21 21:44 Blood Pressure 185/92 11/28/21 21:44 Pulse Oximetry 97 11/28/21 21:44 MDM - SOB/Dyspnea Medical Decision Making Patient's oxygen saturations have been above 96% here. Heart rate is 90. Blood pressure is 135/78. EKG shows a normal sinus rhythm with a rate of 85, normal axis, normal intervals, no acute ST changes. Her white blood cell count is 20, but she received steroids in the hospital. Her potassium was mildly low. Otherwise CBC and BMP are normal. Her CRP is only 3. Her D-dimer is 0.77 which is essentially baseline for her. Her chest x-ray is negative. She will be given her daily dose of antibiotic today, as well as a dose of Solu- Medrol, allowed discharge home to fill her prescriptions tomorrow Lab Data : 11/28/21 22:18 11/28/21 22:18 Labs/Radiology: Radiology Impressions Chest X-Ray 11/28/21 22:02 IMPRESSION: No acute findings. Laboratory Results WBC 20.2 10^3/uL (4.0-10.0) H 11/28/21 22:18 RBC 4.37 10^6/uL (4.1-5.3) 11/28/21:18 Hgb 12.9 g/dL (11.5-15.3) 11/28/21:18 Hct 39.4 % (37.0-47.0) 11/28/21 22:18 MCV 90.2 fl (81-99) 11/28/21:18 MCH 29.5 pg (28.0-34.0) 11/28/21 22:18 MCHC 32.7 g/dL (30.0-36.0) 11/28/21 22:18 RDW 13.9 % (12.1-15.1) 11/28/21:18 Plt Count 257 10^3/cmm (130-400) 11/28/21 22:18 MPV 11.4 fL (7.4-10.4) H 11/28/21 22:18 Neut % (Auto) 85.6 % 11/28/21:18 Lymph % (Auto) 5.7 % 11/28/21:18 [place] % (Auto) 7.2 % 11/28/21 22:18 Eos % (Auto) 0.5 % 11/28/21 22:18 Baso % (Auto) 0.2 % 11/28/21:18 Neut # (Auto) 17.26 10^3/uL (1.8-7.7) H 11/28/21 22:18 Lymph # (Auto) 1.2 10^3/uL (0.8-4.8) 11/28/21 22:18 [place] # (Auto) 1.5 10^3/uL (0.2-0.9) H 11/28/21 22:18 Eos # (Auto) 0.1 10^3/uL (0.0-0.8) 11/28/21 22:18 Baso # (Auto) 0.0 10^3/uL (0.0-0.1) 11/28/21 22:18 Nucleated RBC % (auto) 0 % 11/28/21 22:18 Nucleated RBCs # 0.0 /100WBC 11/28/21 22:18 D-Dimer 0.77 ug/mIFEU (0-0.59) H 11/28/21 22:18 Sodium 136 mmol/L (136-145) 11/28/21 22:18 Potassium 3.3 mmol/L (3.5-5.1) L 11/28/21 22:18 Chloride 101 mmol/L (98-107) 11/28/21 22:18 Carbon Dioxide 22 mmol/L (22-29) 11/28/21 22:18 Anion Gap 16.3 (5-19) 11/28/21 22:18 BUN 15 mg/dL (8-23) 11/28/21 22:18 Creatinine 0.7 mg/dL (0.5-0.9) 11/28/21 22:18 GFR Calculation 85.4 mL/min (90-130) L 11/28/21 22:18 Glucose 69 mg/dL (65-115) 11/28/21 22:18 Calculated Osmolality 281 mOsm/kg (285-295) L 11/28/21 22:18 Lactic Acid 1.1 mmol/L (0.5-2.2) 11/28/21 22:18 Calcium 9.9 mg/dL (8.5-10.5) 11/28/21 22:18 Total Bilirubin 0.3 mg/dL (0.15-1.2) 11/28/21 22:18 AST 43 U/L (0-32) H 11/28/21 22:18 ALT 26 U/L (0-33) 11/28/21 22:18 Alkaline Phosphatase 63 IU/L (35-105) 11/28/21 22:18 Troponin T Baseline 31 ng/L (0-10) H 11/28/21 22:18 Troponin T 120 Minute 24.53 ng/L (0-10) H 11/29/21 00:21 Delta Troponin T -6.47 ABS# (0-10) L 11/29/21 00:21 C-Reactive Protein 3.0 mg/L (0.0-4.9) 11/28/21 22:18 NT-Pro-B Natriuret Pep 693 pg/mL (0-125) H 11/28/21 22:18 Total Protein 7.0 g/dL (6.6-8.7) 11/28/21 22:18 Albumin 3.7 g/dL (3.5-5.2) 11/28/21 22:18 Globulin 3.3 g/dL (1.3-4.6) 11/28/21 22:18 Procalcitonin 0.03 ng/mL (0-0.5) 11/28/21 22:18 Discharge Plan Discharge Patient Disposition: Home Clinical Impression: Acute exacerbation of chronic obstructive airways disease Condition: Stable Prescriptions: No Action (DME) Seated walker See Rx Instructions .Route .MEDSUPPLY Qty: 1 0RF Rx Instructions: As directed hydrochlorothiazide 12.5 mg capsule 12.5 mg PO DAILY 0RF folic acid 1 mg tablet 1 mg PO DAILY 0RF trazodone 50 mg tablet 50 mg PO BEDTIME 0RF pantoprazole 40 mg tablet,delayed release (DR/EC) 40 mg PO DAILY 0RF thiamine HCl (vitamin B1) 100 mg tablet 100 mg PO DAILY 0RF ferrous gluconate 236 mg (27 mg iron) tablet 236 mg PO DAILY 0RF loperamide 2 mg capsule 2 mg PO Q6H PRN (Reason: Diarrhea) 0RF docusate sodium [Stool Softener] 100 mg capsule 100 mg PO DAILY 0RF hydrocodone-acetaminophen 5-325 mg tablet 1 tab PO Q4H PRN (Reason: pain) 7 Days Qty: 30 0RF atorvastatin [Lipitor] 20 mg Tablet 20 mg PO DAILY 0RF prochlorperazine maleate 10 mg Tablet 10 mg PO Q4H PRN (Reason: Nausea) 0RF lorazepam 0.5 mg Tablet 0.5 - 1 mg PO TID PRN (Reason: Anxiety) 0RF ropinirole 0.25 mg Tablet 0.25 - 0.5 mg PO BEDTIME 0RF allopurinol 300 mg Tablet 300 mg PO DAILY 0RF Imbruvica 140 mg Tablet 420 mg PO DAILY 0RF benzonatate 100 mg capsule 100 mg PO TID PRN (Reason: cough) Qty: 30 1RF multivitamin Tablet 1 tab PO DAILY 0RF cyclobenzaprine 10 mg Tablet See Rx Instructions .ROUTE .COMPLEX 0RF Rx Instructions: 10 mg orally qam and 20mg po bedtime ascorbic acid (vitamin C) [Vitamin C] 500 mg Tablet 500 mg PO BID 0RF calcium carbonate-vitamin D3 [Calcium 500 + D] 500 mg(1,250mg) -200 unit Tablet See Rx Instructions .ROUTE .COMPLEX 0RF Rx Instructions: 1 tab orally in the morning/ 2 tabs orally in the evening Carafate 1 gram Tablet 1 g PO BID 0RF gabapentin 300 mg Capsule See Rx Instructions .ROUTE .COMPLEX 0RF Rx Instructions: 300 mg orally in the morning / 600 mg orally in the evening levothyroxine 25 mcg Tablet 25 mcg PO QAM Qty: 30 0RF Augmentin 875-125 mg tablet 1 tab PO BID Qty: 6 0RF levofloxacin 500 mg tablet 500 mg PO Q24H 3 Days Qty: 3 0RF prednisone 20 mg tablet 20 mg PO BID 5 Days Qty: 10 0RF metoprolol tartrate 25 mg tablet 50 mg PO BID Qty: 0 0RF Advair Diskus 250-50 mcg/dose blister with device 1 inh inhalation BID Qty: 60 0RF Spiriva with HandiHaler 18 mcg capsule, w/inhalation device 1 cap inhalation DAILY Qty: 30 0RF Rx Instructions: puncture 1 cap using device; one dose = 2 inhalations Discharge Orders: Discharge ED (Routine); Ordered 11/29/21 Ordered By: Kemar Schwartz Referrals: Lucy Dean PA [Primary Care Provider] - 4-7 days Patient Instructions: COPD (Chronic Obstructive Pulmonary Disease) (ED) Activity Restrictions/Additional Instructions: Return for return of chest pain, worsening shortness of breath, fever greater than 100 despite antibiotics, other concerning symptoms. Fill your prescriptions at the pharmacy tomorrow. You were covered for today's doses with medication here. Coding Level of Care Code ED Heliotherapist for Chg Fwd Exam Comprehensive
[2021-11-28 22:29] LABS: Basophils % 0.2 %; Eosinophils # 0.1 10^3/uL (0.0-0.8); Eosinophils % 0.5 %; Hematocrit 39.4 % (37.0-47.0); Hemoglobin 12.9 g/dL (11.5-15.3); Lymphocytes # 1.2 10^3/uL (0.8-4.8); Lymphocytes % 5.7 %; Mean Corpuscular HGB Conc 32.7 g/dL (30.0-36.0); Mean Corpuscular Hemoglobin 29.5 pg (28.0-34.0); Mean Corpuscular Volume 90.2 fl (81-99); Mean Platelet Volume 11.4 fL (7.4-10.4); Monocytes # 1.5 10^3/uL (0.2-0.9); Monocytes % 7.2 %; Neutrophils # 17.26 10^3/uL (1.8-7.7); Neutrophils % 85.6 %; Nucleated Red Blood Cells % 0 %; Platelet Count 257 10^3/cmm (130-400); Red Blood Count 4.37 10^6/uL (4.1-5.3); Red Cell Distribution Width 13.9 % (12.1-15.1); White Blood Count 20.2 10^3/uL (4.0-10.0)
[2021-11-28 22:50] LABS: D Dimer 0.77 ug/mIFEU (0-0.59)
[2021-11-28 22:51] LABS: Lactic Sepsis W/Reflex 1.1 mmol/L (0.5-2.2)
[2021-11-28 22:53] LABS: Troponin(5th) Baseline 31 ng/L (0-10)
[2021-11-28 23:02] LABS: NT Pro B Type Natriuretic Pept 693 pg/mL (0-125); Procalcitonin 0.03 ng/mL (0-0.5)
[2021-11-28 23:13] LABS: Alanine Aminotransferase 26 U/L (0-33); Albumin Level 3.7 g/dL (3.5-5.2); Alkaline Phosphatase 63 IU/L (35-105); Aspartate Amino Transferase 43 U/L (0-32); Blood Urea Nitrogen 15 mg/dL (8-23); Calcium 9.9 mg/dL (8.5-10.5); Carbon Dioxide 22 mmol/L (22-29); Chloride 101 mmol/L (98-107); Globulin 3.3 g/dL (1.3-4.6); Glomerular Filtration Rate 85.4 mL/min (90-130); Glucose 69 mg/dL (65-115); Osmolality Calculated 281 mOsm/kg (285-295); Sodium 136 mmol/L (136-145); Total Bilirubin 0.3 mg/dL (0.15-1.2)
[2021-11-28 23:15] LABS: Anion Gap 16.3 (5-19); Potassium 3.3 mmol/L (3.5-5.1)
--- NOTE | 2021-11-29 00:03 | ECG_ITS ---
[facility] Test Date: 2021-11-29 Pat Name: Yulisa Kinney Department: Room: Gender: Female Email Production Consultant: : 1960 Requested By: Kemar Almanza Order Number: [id number] Caro MD: Mikey Rangel M.D. Measurements Intervals [place] Rate: 87 P: 83 CA: 193 QRS: 67 QRSD: 88 T: 61 QT: 338 QTc: 408 Interpretive Statements SINUS RHYTHM Compared to ECG 11/28/2021 22:21:38 No significant changes Electronically Signed On 11-29-2021 9:04:21 CDT by Mikey Rangel M.D. [email or web address]
[2021-11-29 00:51] LABS: Troponin 5 2HR 24.53 ng/L (0-10)
[2021-11-29 00:56] LABS: Troponin 5 2HR Delta -6.47 ABS# (0-10)
[2021-11-29] MEDS: potassium chloride ER 20 mEq Tablet 40 MEQ PO (01:44)
[2021-11-29] MEDS: levoFLOXacin 500 mg Tablet PO (01:44)
--- NOTE | 2021-11-29 02:09 | PC.NURSE ---
this rn went into pt room to inform pt of discharge instructions pt became angry telling this rn if the paramedics told her it was going to take this long she wouldn't have come, pt states she didn't have a ride home pt states she didn't want to call her because he has to be at work first thing in the morning, this rn tried to explain to the pt that the er process takes time, pt began stated she will sit outside on the bench, pt called , called this rn and informed this rn he was on his way to poultry picker the pt, pt apologized for pt rude behavior towards this rn, this rn informed pt she could wait in the waiting room and could use one of the hospitals oxygen tank while waiting on her , pt states im not using a tank when i have a machine at home, this rn explained to pt if she did not use the oxygen tank while waiting she could get short of breath, pt stated fine i will use it, this rn assisted pt to waiting area with oxygen tank on and set at 2L nasal canula per pt demands
== END 2021-11-29 03:00 | disposition home or self-care (01) ==
PROVIDERS: Emergency Provider Emergency Medicine; PCP Physician Assistant
DX: J44.1 Chronic obstructive pulmonary disease with (acute) exacerbation (principal); I10 Essential (primary) hypertension; E78.5 Hyperlipidemia, unspecified
CPT/HCPCS: 71045; 80053; 83605; 83880; 84145; 84484; 85025; 85378; 86140; 93005; 96374; 99284; J2930

== ENCOUNTER 2021-12-06 10:19 | Outpatient (CLI) | payer MEDICARE, MEDICAID, SELFPAY ==
[2021-12-06 11:52] LABS: Basophils % 0.2 %; Eosinophils # 0.1 10^3/uL (0.0-0.8); Hemoglobin 12.6 g/dL (11.5-15.3); Lymphocytes # 2.2 10^3/uL (0.8-4.8); Mean Corpuscular HGB Conc 32.3 g/dL (30.0-36.0); Mean Corpuscular Hemoglobin 29.3 pg (28.0-34.0); Mean Corpuscular Volume 90.7 fl (81-99); Mean Platelet Volume 11.7 fL (7.4-10.4); Monocytes # 1.7 10^3/uL (0.2-0.9); Neutrophils # 7.32 10^3/uL (1.8-7.7); Neutrophils % 63.9 %; Nucleated Red Blood Cells % 0 %; Platelet Count 202 10^3/cmm (130-400); Red Cell Distribution Width 13.5 % (12.1-15.1); White Blood Count 11.5 10^3/uL (4.0-10.0)
[2021-12-06] MEDS: sodium chloride 0.9% 500 ML 999 ML IV (12:00)
[2021-12-06 12:22] LABS: Erythrocyte Sedimentation Rate < 1 mm/hr (0-15)
[2021-12-06 12:34] LABS: Alanine Aminotransferase 20 U/L (0-33); Albumin Level 3.5 g/dL (3.5-5.2); Alkaline Phosphatase 45 IU/L (35-105); Anion Gap 10.7 (5-19); Aspartate Amino Transferase 30 U/L (0-32); Blood Urea Nitrogen 14 mg/dL (8-23); C Reactive Protein 4.7 mg/L (0.0-4.9); Calcium 9.6 mg/dL (8.5-10.5); Carbon Dioxide 29 mmol/L (22-29); Chloride 96 mmol/L (98-107); Globulin 2.7 g/dL (1.3-4.6); Glomerular Filtration Rate 63.9 mL/min (90-130); Glucose 73 mg/dL (65-115); Osmolality Calculated 275 mOsm/kg (285-295); Sodium 133 mmol/L (136-145); Total Bilirubin 0.7 mg/dL (0.15-1.2); Total Protein 6.2 g/dL (6.6-8.7)
[2021-12-06 12:40] LABS: Potassium 2.7 mmol/L (3.5-5.1)
[2021-12-07 11:37] LABS: PROTEIN, TOTAL 5.9 g/dL (6.1-8.1)
[2021-12-08 08:48] LABS: ABNORMAL PROTEIN BAND 1 0.6 g/dL (NONE DETECTED); ALBUMIN 3.2 g/dL (3.8-4.8); ALPHA 1 GLOBULIN 0.3 g/dL (0.2-0.3); ALPHA 2 GLOBULIN 0.8 g/dL (0.5-0.9); BETA 1 GLOBULIN 0.4 g/dL (0.4-0.6); BETA 2 GLOBULIN 0.3 g/dL (0.2-0.5)
--- NOTE | 2021-12-09 09:50 | ONC FU_ITS ---
Dr. Solorzano Patient Follow-Up Note Patient: Yulsia Kinney Unit #: [id number]: 1960 Dicatated By: Robin Solorzano M.D.Date of Visit:Dec 06, 2021 Onc Med Follow-up/Prog Note Chief Complaint: Waldenstrom macroglobulinemia. History of Present Illness: This is a 60 year-old woman with Waldenstrom macroglobulinemia, presenting with lymphocytosis, anemia, and splenomegly in association with IgM monoclonal gammopathy. She had been seeing Dr. Jasso in neurology for peripheral neuropathy symptoms. She had been diagnosed with bilateral carpal tunnel syndrome and lumbar radiculopathy. On 09/26/2019 she had a follow-up outpatient visit with Lucy Dean. Her laboratory studies included CBC showing hemoglobin 9.7 g and hematocrit 31.5%. The red cell indices were normal. The white blood cell count was elevated 14,900 with the differential showing 23% granulocytes, 68% lymphocytes, and 7% monocytes. The platelet count was normal at 165,000. Comprehensive metabolic profile showed borderline renal function with BUN 15 and creatinine 1.1 mg/dL. The albumin was normal at 4.2 g/dL with calculated serum globulin elevated at 4.4 g/dL. The liver enzymes were normal. Sed rate and CRP levels were normal. TSH was borderline at 4.74 ???IUl/mL. B12 was normal at 568 pg/mL. Folate was greater than 24.0 ng/mL. The serum iron studies showed slightly low transferrin saturation at 18%. Ferritin was normal at 65 ng/mL. Protein electrophoresis showed a monoclonal protein band quantitating at 1.2 g/dL. Immunofixation showed IgM lambda. I had seen her initially on 10/31/2019. She was noted to have a palpable spleen, but there was no peripheral lymphadenopathy noted. Her repeat CBC showed hemoglobin 9.9 g, white blood cell count 17,000, and platelet count 124,000. The differential showed 70% lymphocytes, 18% neutrophils, 8% monocytes, and 1% eosinophils. Comprehensive metabolic profile was unremarkable except for slightly elevated SGOT at 46/32 U/L. LDH was just slightly elevated at 231/214 U/L. Protein electrophoresis showed an M band quantitating at 1.1 g/dL. The quantitative immunoglobulins included IgG elevated at 1464/230 mg/dL, IgG normal at 1129 mg/dL, and IgA normal at 113 mg/dL. The free light chain assay showed elevated lambda light chain at 53.3 mg/L, kappa light chain 33.8 mg/L and kappa/lambda ratio within the normal range at 0.63. A whole blood flow cytometry on 11/06/2019 showed on monotypic B-cell population which was positive for CD19, CD20, and CD22. There was dim/partial positivity to FMC7 and CD25. A subset showed surface lambda light chain restriction, but the remaining population appeared to be light chain negative. The monotypic B cells were negative for CD5, CD10, CD23, CD11c, CD103, CD123, CD200, CD38, and CD34. The phenotype was felt to be nonspecific. Staging CT scans of the chest, abdomen, and pelvis on 11/14/2019 showed prominent left axillary lymph nodes, the largest measuring 10 mm, an enlarged celiac axis lymph node measuring 11.5 mm, a prominent left periaortic lymph node measuring 7 mm, and prominent inguinal lymph nodes measuring up to 10 mm. The spleen was enlarged measuring 13.1 cm. The right hepatic lobe was noted to be enlarged, but the liver otherwise appeared normal. She underwent bone marrow aspiration/biopsy on 12/05/2019. The interpretation was limited due to the bone marrow aspirate specimens having been hemodiluted without cellular spicules. Bone marrow was noted to be hypercellular on the biopsy specimen, averaging 60 to 90% cellularity. An extensive interstitial and diffuse lymphoid infiltrate was noted to involve a high proportion of the marrow space, estimated at 70 to 80%. The lymphoid cells were noted to be small and round with clumped nuclear chromatin. There was evidence of plasmacytic differentiation. The flow cytometry showed nonspecific phenotype, similar to the whole blood specimen. Iron stores were noted to be reduced, but not absent. Overall, the findings were not definitive, but they were suggestive of lymphoplasmacytic lymphoma. The MYD88 mutation was detected, consistent with Waldenstrom macroglobulinemia. On 01/13/2020 she began a course of treatment with rituximab in combination with ibrutinib 420 mg daily. She completed the initial 4 weekly infusions of rituximab with no adverse effects. She then continued the ibrutinib at 420 mg daily. As of her follow-up visit on 03/04/2020 there had been a significant decline in her M protein, to 0.7 g/dL, and there also was significant improvement in the splenomegaly. There was not a significant change in her clinical status. She then continued ibrutinib 420 mg daily, which she tolerated well. As of her follow-up visit on 05/04/2020 her repeat protein electrophoresis showed residual M protein quantitating at 0.7 g/dL. She began her second course of rituximab administered weekly for 4 weeks. She completed her week 4 treatment on 05/25/2020. She tolerated it very well, and she then continued her treatment with ibrutinib 420 mg daily. On 08/13/2020 she was admitted to the hospital with pneumonia, having presented to the emergency room with mental status changes. She improved clinically on antibiotic therapy. She was discharged home on 08/17/2020. At that point she had adequate oxygen saturation on room air. However, on outpatient follow-up with Lucy Dean she apparently was found to be significantly hypoxic, and she was then started on home oxygen. At her follow-up visit on 09/24/2020 her ibrutinib was temporarily put on hold due to visual changes. Ultimately these were felt to be more likely due to gabapentin. Her ibrutinib was supposed to have been restarted, but for some reason that did not happen, and she remained off treatment. I have been seeing her for a follow-up visit on 10/27/2020. At that point her blood counts were adequate. She remained oxygen dependent, but she otherwise appeared stable clinically, and I did have her restart the ibrutinib at 420 mg daily. During subsequent follow-up she had complained of worsening problems with balance/equilibrium. As a precaution, I did have her stop the ibrutinib. Her restaging CT scans on 01/25/2021 showed no lymphadenopathy within the chest, abdomen, or pelvis. There were emphysematous changes, but no suspicious pulmonary mass or nodule was noted. There was just mild plaque atelectasis in the lingula and left lower lobe. Some wall thickening of the stomach was felt to possibly reflect gastritis or underdistention of the stomach. Her brain MRI on 02/02/2021 showed mild small vessel changes and moderate parenchymal volume loss. Chronic lacunar infarcts in the cerebellum appeared unchanged. There was no evidence of mass lesion or other acute pathology. In the meantime, she also was seen for follow-up by Dr. Rosario. 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 As of 02/25/2021 she restarted treatment with ibrutinib. As of her follow-up visit on 04/20/2021 her M protein was stable at 0.5 g/dL, and she appeared stable clinically. She continued ibrutinib 420 mg daily. As of 06/25/2021 her treatment was put on hold due to a decline in her absolute neutrophil count to just under 1300. The following months she was able to restart the ibrutinib at 420 mg daily. Her other medical illnesses includehypertension, hyperlipidemia, fibromyalgia, and degenerative arthritis/degenerative disease of the spine. She has had multiple surgeries on both the cervical and lumbar spine. She reportedly was found to be positive for the Factor V Leiden mutation. She has history of smoking for 30 years, up to 2 packs of cigarettes daily. She quit smoking in 2006. INTERIM HISTORY: On 11/13/2021 she presented to the emergency room with a 2-week history of increased shortness of breath and weakness. Her CT pulmonary angiogram showed no evidence of pulmonary embolus. There were no pulmonary nodules or infiltrates noted and there were no other acute findings. She was treated for acute bronchitis. I had seen her for a follow-up visit on 11/23/2021. At that point she had multiple complaints including severe weakness/fatigue, cough with worsening shortness of breath, and generalized pain. Her laboratory studies showed leukocytosis and hypercalcemia. She was given IV hydration, and she was recommended to stop the ibrutinib. She was scheduled to have further evaluation with restaging CT scans of the chest, abdomen, and pelvis. However, by the following day she was feeling worse, and at that point she was seen in the emergency room and subsequently admitted to the hospital. She was treated for pneumonia and discharged 2 days later. Her chest CT showed emphysema, but there were no acute findings. The following day she was back in the emergency room with shortness of breath. She was given IV Solu-Medrol, and she continued her antibiotic therapy. She is seen now for a follow-up visit. She is feeling a little better. She still has limited activity, better energy is improving. ECOG score is 2. She still does not have good appetite. She is not having fever or night sweats. She reports having dry mouth and throat. She says her breathing is getting better. She is not having cough or chest pain. She is having frequent watery stools, up to 9 or 10/day. She has no other GI or complaints. She has back pain. She has been having issues with dizziness/dysequilibrium, though it is a little better now. She has ongoing complaints with numbness/tingling in her hands and in her legs and feet. Medications: Acetaminophen-Codeine #3 Tablet Oral PRN, Allopurinol 1 Tablet (of 300 mg) Oral daily, Atorvastatin Calcium 1 Tablet (of 20 mg) Oral at bedtime, B-1 1 Tablet (of 100 mg) Oral daily, Calcium Citrate + D 1 Tablet (of 315-200 mg - Units) Oral b.i.d., Cyclobenzaprine HCl 1 - 2 Tablet (of 10 mg) Oral b.i.d., Folic Acid 1 Tablet (of 1 mg) Oral daily, Gabapentin 1 Tablet (of 600 mg) Oral at bedtime, Gabapentin 1 Capsule (of 300 mg) Oral every am, hydroCHLOROthiazide 1 Tablet (of 12.5 mg) Oral daily, Levothyroxine Sodium 1 Tablet (of 50 mcg) Oral daily, LORazepam 1 - 2 Tablet (of 0.5 mg) Oral t.i.d., LORazepam 1 - 2 Tablet (of 0.5 mg) Oral t.i.d. PRN, Metoprolol Tartrate (25 mg) Tablet Oral Take as Directed, Multivitamin Adult 1 Tablet Oral daily, Pantoprazole Sodium 1 Tablet (of 40 mg) Tablet, enteric coated Oral daily, Potassimin 1 Tablet Oral b.i.d., rOPINIRole HCl 2 Tablet (of 0.25 mg) Oral at bedtime, Spiriva Respimat Aerosol, solution Inhalation daily, Stool Softener 1 Tablet (of 100 mg) Oral daily, traZODone HCl 0.5 - 1 Tablet (of 50 mg) Oral at bedtime, Vitamin C 1 Capsule (of 500 mg) Oral daily, Wixela Inhub Aerosol Powder, Breath Activated Inhalation b.i.d. Allergies: Cortisone Acetate, Demerol, Dilaudid, Haldol, and Morphine Sulfate. Vital Signs: Performed on Dec 06, 2021 10:38 Height - 59.00 in Weight - 109.8 lbs (LOW) BSA - 1.43 sq.m BMI - 22.18 Temperature - 96.2 F (LOW) Pulse - 84 /min Respiration - 19 /min BP - 146/89 mm(hg) (HIGH) O2 Sat - 99 % Pain - 5 Fatigue - 4 Physical Examination: Constitutional - She appears somewhat weak generally, Eyes - Sclerae nonicteric. Conjunctivae clear, ENMT - Mouth is dry. There are no lesions noted in the oral cavity, Hematologic/Lymphatic - No cervical, clavicular, or axillary adenopathy, Respiratory - Lungs sound clear with diminished air movement bilaterally, Cardiovascular - Heart rhythm is regular. There is no murmur, gallop, or rub noted, Abdomen - Soft. Liver is not enlarged. Spleen is not palpable. There is no abdominal mass or ascites noted and there is no inguinal adenopathy, Extremities - No edema, Neurologic - No focal neurologic deficits noted. Lab/Imaging: Test performed on Dec 06, 2021 11:36 Protein, Total 6.2 g/dL Albumin 3.5 g/dL Globulin 2.7 g/dL Bilirubin, Total 0.7 mg/dL ALT (SGPT) 20 U/L AST (SGOT) 30 U/L Alkaline Phosphatase 45 IU/L ESR (Sed Rate) < 1 mm/hr WBC 11.5 10 3/uL RBC 4.30 10 6/uL HGB 12.6 g/dL HCT 39.0 % MCV 90.7 fl MCH 29.3 pg MCHC 32.3 g/dL RDW 13.5 % Platelet Count 202 10 3/cmm MPV 11.7 fL Neutrophils 7.32 10 3/uL Lymphocytes 2.2 10 3/uL Monocytes 1.7 10 3/uL Eosinophils 0.1 10 3/uL Basophils 0.0 10 3/uL Neutrophil % 63.9 % Lymphocyte % 19.0 % Monocyte % 15.0 % Eosinophil % 1.0 % Basophils % 0.2 % NRBC % 0 % Problem List: 1. Waldenstr???m macroglobulinemia. 2. Peripheral neuropathy. 3. Hypertension. 4. Hyperlipidemia. 5. Fibromyalgia. 6. Degenerative arthritis and degenerative disease of the spine. She has associated cervical spinal canal stenosis. 7. She was reportedly found to be positive for the Factor V Leiden mutation. Problems Addressed with this Encounter and Plan: Patient with lymphoproliferative disorder with associated IgM monoclonal gammopathy. 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 The MYD88 mutation was detected, consistent with Waldenstr???m macroglobulinemia. She has significant peripheral neuropathy, which I have assumed to be related. Her treatment has included two 4-week courses of weekly rituximab, administered in January and in May 2020, together with ibrutinib 420 mg daily. Overall, she has tolerated the treatment well. She had a very good objective response, though without significant change in her clinical status. In September 2020 her ibrutinib was temporarily put on hold due to visual changes, but these were ultimately felt to be more likely associated with gabapentin. As of her follow-up visit on 10/27/2020 when she restarted ibrutinib at 420 mg daily. However, it was subsequently put on hold again due worsening equilibrium/balance. She had follow-up with Dr. 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 As of her follow-up visit on 02/25/2021 she restarted ibrutinib 420 mg daily. Unfortunately, despite the improvement in her IgM level, she continued to have significant peripheral neuropathy symptoms and she also continued to have somewhat marginal performance status. As of 06/24/2021 her ibrutinib was put on hold due to a decrease in her absolute neutrophil count. The following months she was able to restart the ibrutinib at 420 mg daily. She had presented recently with multiple complaints including severe weakness/fatigue, cough with increased shortness of breath, dysequilibrium, and generalized pain. There was no obvious cause for that by clinical evaluation, though she did have an elevated white blood cell count and her calcium was also mildly elevated. She is feeling a little better now after short hospitalization, though still without a specific diagnosis. During this time, I did ask her to stop the ibrutinib, and at least for now she will remain off treatment. She will be given IV hydration today, I will check a stool for C. difficile. I will have her return for follow-up later this week, and she will have further evaluation as indicated. Signed By: Robin Solorzano M.D. <<Signature on File>>
== END 2021-12-06 10:20 | disposition home or self-care (01) ==
PROVIDERS: PCP Physician Assistant; Visit Provider Internal Medicine Medical Oncology
DX: C88.0 Waldenstrom macroglobulinemia (principal); I10 Essential (primary) hypertension; E78.2 Mixed hyperlipidemia; M79.7 Fibromyalgia; M47.9 Spondylosis, unspecified; Z79.899 Other long term (current) drug therapy
CPT/HCPCS: 80053; 84155; 84165; 85025; 85651; 86140; 96360; 99215; J7040

== ENCOUNTER 2021-12-09 07:50 | Outpatient (CLI) | payer MEDICARE, MEDICAID, SELFPAY ==
[2021-12-09] MEDS: sodium chloride 0.9% 500 ML IV (08:41)
[2021-12-09 09:11] LABS: Blood Urea Nitrogen 6 mg/dL (8-23); Calcium 9.4 mg/dL (8.5-10.5); Carbon Dioxide 29 mmol/L (22-29); Chloride 99 mmol/L (98-107); Glomerular Filtration Rate 85.4 mL/min (90-130); Glucose 78 mg/dL (65-115); Magnesium 1.3 mg/dL (1.7-2.3); Osmolality Calculated 278 mOsm/kg (285-295); Sodium 136 mmol/L (136-145)
--- NOTE | 2021-12-09 11:07 | CT_ITS ---
WS: [id number] CT CHEST, ABDOMEN AND PELVIS WITH CONTRAST. HISTORY: LYMPHOMA TECHNIQUE: Contiguous 5 mm axial imaging performed through the chest, abdomen and pelvis with IV cont rast, oral contrast has not been provided. Coronal and sagittal reformats chest. Coronal and sagittal reformats through the abdomen and pelvis. All CT scans at [facility] use at least one of the se dose optimization techniques: automated exposure control; mA and/or kV adjustment per patient size (includes targeted exams where dose is matched to clinical indication); or iterative reconstruction. CONTRAST: Omnipaque 300; 50 mL IV. DLP: 1095.84 mGy.cm COMPARISON: 11/25/2021 and 01/25/[address]: Moderate chronic emphysema. New focal nodule measuring 6 mm with mild adjacent groundglass attenuation in the posterior RIGHT lower lobe. Benign granuloma LEFT upper lobe. Linear areas of subs egmental atelectasis at the lung bases. No effusion. Heart size is normal. Moderate vascular calcific ations in the coronary arteries. No mediastinal or hilar adenopathy. Remote healed rib fracture later al RIGHT mid thorax. Abdomen CT: Liver and spleen are normal size. Spleen measures 8.2 cm in length. Gallbladder is slight ly contracted. Common bile duct is mildly prominent at 7 mm. No stones identified. Visualization of t he pancreas is limited but no abnormality identified. No adrenal mass. No renal obstruction or mass. Nonobstructing 5 mm calcification LEFT kidney. Moderate calcification throughout the aorta. Limited e nhancement of the mesenteric arteries due to the poor contrast bolus injection. No ascites. No mesenteric or retroperitoneal adenopathy is identified. Bowel gas pattern is normal. Mild fecal retention. Pelvic CT: No free fluid in the pelvis. Urinary bladder is normal. Normal size uterus is midline. Grade 1 anterolisthesis of L4. Posterior lumbar fusion hardware at L4-5. CT/CT chest abd pel w con* IMPRESSION: 1. New 6 mm nodule in the posterior RIGHT lower lobe needs further evaluation. This nodule is new since 11/25/2021 and may be postinflammatory. Follow-up ches t CT with IV contrast in 3 months. 2. No evidence for lymphadenopathy within the chest, abdomen or pelvis. 3. Moderate atherosclerotic plaque within the aorta. 4. No ascites.
[2021-12-09] MEDS: iohexol 300 mg/mL 100 mL Btl IV (12:31)
--- NOTE | 2021-12-12 22:20 | ONC FU_ITS ---
Nuris Sawyer Progress Note Patient: Yulisa Kinney Unit #: [id number]: 1960 Dicatated By: Nuris Sawyer N.P.Date of Visit:Dec 09, 2021 Onc MED Follow-up/Prog Note Chief Complaint: Waldenstrom macroglobulinemia. History of Present Illness: This is a 60 year-old woman with Waldenstrom macroglobulinemia, presenting with lymphocytosis, anemia, and splenomegly in association with IgM monoclonal gammopathy. She had been seeing Dr. Jasso in neurology for peripheral neuropathy symptoms. She had been diagnosed with bilateral carpal tunnel syndrome and lumbar radiculopathy. On 09/26/2019 she had a follow-up outpatient visit with Lucy Dean. Her laboratory studies included CBC showing hemoglobin 9.7 g and hematocrit 31.5%. The red cell indices were normal. The white blood cell count was elevated 14,900 with the differential showing 23% granulocytes, 68% lymphocytes, and 7% monocytes. The platelet count was normal at 165,000. Comprehensive metabolic profile showed borderline renal function with BUN 15 and creatinine 1.1 mg/dL. The albumin was normal at 4.2 g/dL with calculated serum globulin elevated at 4.4 g/dL. The liver enzymes were normal. Sed rate and CRP levels were normal. TSH was borderline at 4.74 ???IUl/mL. B12 was normal at 568 pg/mL. Folate was greater than 24.0 ng/mL. The serum iron studies showed slightly low transferrin saturation at 18%. Ferritin was normal at 65 ng/mL. Protein electrophoresis showed a monoclonal protein band quantitating at 1.2 g/dL. Immunofixation showed IgM lambda. Dr. Solorzano had seen her initially on 10/31/2019. She was noted to have a palpable spleen, but there was no peripheral lymphadenopathy noted. Her repeat CBC showed hemoglobin 9.9 g, white blood cell count 17,000, and platelet count 124,000. The differential showed 70% lymphocytes, 18% neutrophils, 8% monocytes, and 1% eosinophils. Comprehensive metabolic profile was unremarkable except for slightly elevated SGOT at 46/32 U/L. LDH was just slightly elevated at 231/214 U/L. Protein electrophoresis showed an M band quantitating at 1.1 g/dL. The quantitative immunoglobulins included IgG elevated at 1464/230 mg/dL, IgG normal at 1129 mg/dL, and IgA normal at 113 mg/dL. The free light chain assay showed elevated lambda light chain at 53.3 mg/L, kappa light chain 33.8 mg/L and kappa/lambda ratio within the normal range at 0.63. A whole blood flow cytometry on 11/06/2019 showed on monotypic B-cell population which was positive for CD19, CD20, and CD22. There was dim/partial positivity to FMC7 and CD25. A subset showed surface lambda light chain restriction, but the remaining population appeared to be light chain negative. The monotypic B cells were negative for CD5, CD10, CD23, CD11c, CD103, CD123, CD200, CD38, and CD34. The phenotype was felt to be nonspecific. Staging CT scans of the chest, abdomen, and pelvis on 11/14/2019 showed prominent left axillary lymph nodes, the largest measuring 10 mm, an enlarged celiac axis lymph node measuring 11.5 mm, a prominent left periaortic lymph node measuring 7 mm, and prominent inguinal lymph nodes measuring up to 10 mm. The spleen was enlarged measuring 13.1 cm. The right hepatic lobe was noted to be enlarged, but the liver otherwise appeared normal. She underwent bone marrow aspiration/biopsy on 12/05/2019. The interpretation was limited due to the bone marrow aspirate specimens having been hemodiluted without cellular spicules. Bone marrow was noted to be hypercellular on the biopsy specimen, averaging 60 to 90% cellularity. An extensive interstitial and diffuse lymphoid infiltrate was noted to involve a high proportion of the marrow space, estimated at 70 to 80%. The lymphoid cells were noted to be small and round with clumped nuclear chromatin. There was evidence of plasmacytic differentiation. The flow cytometry showed nonspecific phenotype, similar to the whole blood specimen. Iron stores were noted to be reduced, but not absent. Overall, the findings were not definitive, but they were suggestive of lymphoplasmacytic lymphoma. The MYD88 mutation was detected, consistent with Waldenstrom macroglobulinemia. On 01/13/2020 she began a course of treatment with rituximab in combination with ibrutinib 420 mg daily. She completed the initial 4 weekly infusions of rituximab with no adverse effects. She then continued the ibrutinib at 420 mg daily. As of her follow-up visit on 03/04/2020 there had been a significant decline in her M protein, to 0.7 g/dL, and there also was significant improvement in the splenomegaly. There was not a significant change in her clinical status. She then continued ibrutinib 420 mg daily, which she tolerated well. As of her follow-up visit on 05/04/2020 her repeat protein electrophoresis showed residual M protein quantitating at 0.7 g/dL. She began her second course of rituximab administered weekly for 4 weeks. She completed her week 4 treatment on 05/25/2020. She tolerated it very well, and she then continued her treatment with ibrutinib 420 mg daily. On 08/13/2020 she was admitted to the hospital with pneumonia, having presented to the emergency room with mental status changes. She improved clinically on antibiotic therapy. She was discharged home on 08/17/2020. At that point she had adequate oxygen saturation on room air. However, on outpatient follow-up with Lucy Dean she apparently was found to be significantly hypoxic, and she was then started on home oxygen. At her follow-up visit on 09/24/2020 her ibrutinib was temporarily put on hold due to visual changes. Ultimately these were felt to be more likely due to gabapentin. Her ibrutinib was supposed to have been restarted, but for some reason that did not happen, and she remained off treatment. I have been seeing her for a follow-up visit on 10/27/2020. At that point her blood counts were adequate. She remained oxygen dependent, but she otherwise appeared stable clinically, and I did have her restart the ibrutinib at 420 mg daily. During subsequent follow-up she had complained of worsening problems with balance/equilibrium. As a precaution, I did have her stop the ibrutinib. Her restaging CT scans on 01/25/2021 showed no lymphadenopathy within the chest, abdomen, or pelvis. There were emphysematous changes, but no suspicious pulmonary mass or nodule was noted. There was just mild plaque atelectasis in the lingula and left lower lobe. Some wall thickening of the stomach was felt to possibly reflect gastritis or underdistention of the stomach. Her brain MRI on 02/02/2021 showed mild small vessel changes and moderate parenchymal volume loss. Chronic lacunar infarcts in the cerebellum appeared unchanged. There was no evidence of mass lesion or other acute pathology. In the meantime, she also was seen for follow-up by Dr. Rosario. 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 As of 02/25/2021 she restarted treatment with ibrutinib. As of her follow-up visit on 04/20/2021 her M protein was stable at 0.5 g/dL, and she appeared stable clinically. She continued ibrutinib 420 mg daily. As of 06/25/2021 her treatment was put on hold due to a decline in her absolute neutrophil count to just under 1300. The following months she was able to restart the ibrutinib at 420 mg daily. Her other medical illnesses includehypertension, hyperlipidemia, fibromyalgia, and degenerative arthritis/degenerative disease of the spine. She has had multiple surgeries on both the cervical and lumbar spine. She reportedly was found to be positive for the Factor V Leiden mutation. She has history of smoking for 30 years, up to 2 packs of cigarettes daily. She quit smoking in 2006. INTERIM HISTORY: On 11/13/2021 she presented to the emergency room with a 2-week history of increased shortness of breath and weakness. Her CT pulmonary angiogram showed no evidence of pulmonary embolus. There were no pulmonary nodules or infiltrates noted and there were no other acute findings. She was treated for acute bronchitis. Dr. Solorzano had seen her for a follow-up visit on 11/23/2021. At that point she had multiple complaints including severe weakness/fatigue, cough with worsening shortness of breath, and generalized pain. Her laboratory studies showed leukocytosis and hypercalcemia. She was given IV hydration, and she was recommended to stop the ibrutinib. She was scheduled to have further evaluation with restaging CT scans of the chest, abdomen, and pelvis. However, by the following day she was feeling worse, and at that point she was seen in the emergency room and subsequently admitted to the hospital. She was treated for pneumonia and discharged 2 days later. Her chest CT showed emphysema, but there were no acute findings. The following day she was back in the emergency room with shortness of breath. She was given IV Solu-Medrol, and she continued her antibiotic therapy. She presents today for follow-up. She continues to complain of weakness. Her appetite has been fair. She denies fever, chills, night sweats. No sinus drainage or sore throat. No shortness of breath or cough. No nausea or vomiting. She did have severe diarrhea and abdominal cramping but that has resolved now. She is continuing to have low back pain that is chronic in nature. No headaches or dizziness. Review Of Symptoms: See above. Past Medical History: Cervical spinal stenosis Degenerative arthritis Degenerative disease of the spine Factor V Leiden mutation Fibromyalgia Hyperlipidemia Hypertension Past Surgical History: Bunionectomy on the right foot Cervical spine surgery x 4 section x 2 EGD and colonoscopy Facial surgery x 3 Lumbar spine surgery x 2 Multiple oral surgeries Rotator cuff repair x 2 Surgery for dislocated left hip Allergies: Cortisone Acetate, Demerol, Dilaudid, Haldol, and Morphine Sulfate. Medications: Acetaminophen-Codeine #3 Tablet Oral PRN Allopurinol 1 Tablet (of 300 mg) Oral daily Atorvastatin Calcium 1 Tablet (of 20 mg) Oral at bedtime B-1 1 Tablet (of 100 mg) Oral daily Calcium Citrate + D 1 Tablet (of 315-200 mg - Units) Oral b.i.d. Cyclobenzaprine HCl 1 - 2 Tablet (of 10 mg) Oral b.i.d. Folic Acid 1 Tablet (of 1 mg) Oral daily Gabapentin 1 Tablet (of 600 mg) Oral at bedtime Gabapentin 1 Capsule (of 300 mg) Oral every am hydroCHLOROthiazide 1 Tablet (of 12.5 mg) Oral daily Levothyroxine Sodium 1 Tablet (of 50 mcg) Oral daily LORazepam 1 - 2 Tablet (of 0.5 mg) Oral t.i.d. LORazepam 1 - 2 Tablet (of 0.5 mg) Oral t.i.d. PRN Metoprolol Tartrate (25 mg) Tablet Oral Take as Directed Multivitamin Adult 1 Tablet Oral daily Pantoprazole Sodium 1 Tablet (of 40 mg) Tablet, enteric coated Oral daily Potassimin 1 Tablet Oral b.i.d. rOPINIRole HCl 2 Tablet (of 0.25 mg) Oral at bedtime Spiriva Respimat Aerosol, solution Inhalation daily Stool Softener 1 Tablet (of 100 mg) Oral daily traZODone HCl 0.5 - 1 Tablet (of 50 mg) Oral at bedtime Vitamin C 1 Capsule (of 500 mg) Oral daily Wixela Inhub Aerosol Powder, Breath Activated Inhalation b.i.d. Family History: Ms. Kinney's mother at age 71: emphysema. Ms. Kinney's father at age 70: congestive heart failure, and hypertension, and myocardial infarction, and type II diabetes. Ms. Kinney has 1 brother who is alive: coronary artery disease. She has 2 sisters: 1 alive, 1 . Ms. Kinney's first sister's septic shock. Father had diabetes, coronary artery disease, and chronic kidney disease. He at age 70. Her mother had COPD and history of strokes. She at age 71. A sister with septic shock. Another sister is in good health. She has 1 brother who has coronary disease. Her daughter was found to have factor V Leiden mutation in the course of her evaluation following a stillbirth. Social History: Ms. Kinney is and she is a disabled. Ms. Kinney quit smoking 14 years ago but had smoked 2.0 packs/day for 30 years. She drinks occasionally. Ms. Kinney reports the following support systems: lives with spouse, significant other, family, or friends, lives in own house, supportive family/friends willing to assist with needs, and transportation problems exist and will require assistance. Her diet consists of regular meals. She indicates her activity level as: light exercise. She has a history of smoking for 30 years up to 2 packs of cigarettes daily. She quit smoking in 2006. She has just occasional alcohol use. 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 Physical Examination: Performed on Dec 09, 2021 08:49: Height - 59.00 in, Weight - 106 lbs (LOW), BSA - 1.41 sq.m, BMI - 21.41, Temperature - 98.6 F, Pulse - 92 /min, Respiration - 16 /min, BP - 121/75 mm(hg), O2 Sat - 90 % (LOW), Pain - 4, and Fatigue - 8. Performance Status: 2 - Ambulatory/capable of all self-care, unable to perform any work activities. Up and about more than 50% of waking hours. (ECOG) Constitutional Alert, cooperative, oriented. Mood and affect appropriate. Appears close to chronological age. Well nourished. Well developed. Respiratory Lungs are clear to auscultation without rhonchi or wheezing. Cardiovascular Regular rate and rhythm of heart without murmurs, gallops or rubs. Abdomen Non-tender, non-distended, no masses, ascites or hepatosplenomegaly. Good bowel sounds. No guarding or rebound tenderness. Psychiatric Alert and oriented times three. Coherent speech. Verbalizes understanding of our discussions today. Laboratory: Test performed on Dec 09, 2021 08:41 Magnesium 1.3 mg/dL Sodium 136 mmol/L Potassium 3.0 mmol/L Chloride 99 mmol/L CO2 29 mmol/L Anion Gap 11.0 Glucose 78 mg/dL BUN 6 mg/dL Creatinine 0.7 mg/dL Cr Clearance (Est) 64.8700 mL/min eGFR 85.4 mL/min Calcium 9.4 mg/dL Osmolality - Calculated 278 mOsm/kg Test performed on Dec 06, 2021 11:36 Protein, Total 6.2 g/dL Albumin 3.5 g/dL Globulin 2.7 g/dL Bilirubin, Total 0.7 mg/dL ALT (SGPT) 20 U/L AST (SGOT) 30 U/L Alkaline Phosphatase 45 IU/L ESR (Sed Rate) < 1 mm/hr WBC 11.5 10 3/uL RBC 4.30 10 6/uL HGB 12.6 g/dL HCT 39.0 % MCV 90.7 fl MCH 29.3 pg MCHC 32.3 g/dL RDW 13.5 % Platelet Count 202 10 3/cmm MPV 11.7 fL Neutrophils 7.32 10 3/uL Lymphocytes 2.2 10 3/uL Monocytes 1.7 10 3/uL Eosinophils 0.1 10 3/uL Basophils 0.0 10 3/uL Neutrophil % 63.9 % Lymphocyte % 19.0 % Monocyte % 15.0 % Eosinophil % 1.0 % Basophils % 0.2 % NRBC % 0 % Test performed on Nov 24, 2021 15:53 Ua Color Yellow Ua Appearance Clear Ua pH 7 Ua Specific [place] 1.010 Ua Glucose Norm Ua Ketones Negative Ua Protein Neg Ua Blood Neg Ua Bilirubin Neg Ua Nitrites Negative Ua Leukocyte Esterase Negative Blood Culture R3 Ua Micro: WBC RARE /hpf Ua Micro: RBC 0-4 /hpf Ua Micro: Squam Epith Cells 0-4 /hpf Ua Micro: Bacteria TRACE /hpf Test performed on Nov 17, 2021 13:30 LDH (Total) 205 U/L IgA 138 mg/dL Test performed on Jul 27, 2021 12:20 Manual Segs % 45 % Manual Bands % 1.0 % Manual Lymphs % 29 % Atypical Lymphs % 9.0 % Total Cells Counted 100 Manual Monos % 15.0 % Manual Eos % 1 % Manual Basos % 0.0 % Platelet Estimate Normal Manual Segs Abs 3.1 10/cmm Manual Bands Abs 0.1 10 3/cmm Manual Neutrophils Abs 3.2 10 3/cmm Manual Lymphocytes Abs 2.6 10 3/cmm Manual Monocytes Abs 1.0 10 3/cmm Manual Eosinophils Abs 0.0 10 3/cmm Manual Basophils Abs 0.0 10 3/cmm Test performed on Jul 07, 2021 14:52 CBC Slide Review Slide Review Perform SLIDE REVIEWED AGREES WITH THE AUTO RESULT Impression: 1. Waldenstr???m macroglobulinemia. 2. Peripheral neuropathy. 3. Hypertension. 4. Hyperlipidemia. 5. Fibromyalgia. 6. Degenerative arthritis and degenerative disease of the spine. She has associated cervical spinal canal stenosis. 7. She was reportedly found to be positive for the Factor V Leiden mutation. Plan: Patient with lymphoproliferative disorder with associated IgM monoclonal gammopathy. 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 The MYD88 mutation was detected, consistent with Waldenstr???m macroglobulinemia. She has significant peripheral neuropathy, which I have assumed to be related. Her treatment has included two 4-week courses of weekly rituximab, administered in January and in May 2020, together with ibrutinib 420 mg daily. Overall, she has tolerated the treatment well. She had a very good objective response, though without significant change in her clinical status. In September 2020 her ibrutinib was temporarily put on hold due to visual changes, but these were ultimately felt to be more likely associated with gabapentin. As of her follow-up visit on 10/27/2020 when she restarted ibrutinib at 420 mg daily. However, it was subsequently put on hold again due worsening equilibrium/balance. She had follow-up with Dr. 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 As of her follow-up visit on 02/25/2021 she restarted ibrutinib 420 mg daily. Unfortunately, despite the improvement in her IgM level, she continued to have significant peripheral neuropathy symptoms and she also continued to have somewhat marginal performance status. As of 06/24/2021 her ibrutinib was put on hold due to a decrease in her absolute neutrophil count. The following months she was able to restart the ibrutinib at 420 mg daily. Patient presents today for follow-up. She continues to have weakness and fatigue. She will be hydrated today. Her labs have indicated a low magnesium level at 1.3. She will be given magnesium replacement 1 g IV today. Previously she had blood cultures and sputum cultures obtained. Her sputum culture indicated an organism Saccharomyces cerevisiae which is indicative of microscopic colitis. Information obtained from up-to-date which recommended budesonide 9 mg daily for 6 to 8 weeks for treatment. This could be contributing to her symptoms of diarrhea and abdominal pain although those have resolved now. It can also be contributing to the weakness and fatigue and generalized pain. Patient will be started on budesonide 9 mg orally and follow-up with Dr. Solorzano next week. Signed By: Nuris Sawyer N.P. <<Signature on File>>
== END 2021-12-09 07:51 | disposition home or self-care (01) ==
PROVIDERS: PCP Physician Assistant; Visit Provider Nurse Practitioner Family
DX: C88.0 Waldenstrom macroglobulinemia (principal); D47.2 Monoclonal gammopathy; I10 Essential (primary) hypertension; E78.2 Mixed hyperlipidemia; M79.7 Fibromyalgia; M47.9 Spondylosis, unspecified; Z79.899 Other long term (current) drug therapy; R91.1 Solitary pulmonary nodule; I70.0 Atherosclerosis of aorta
CPT/HCPCS: 71260; 74177; 80048; 83735; 96360; 96365; 99215; J3475; J7040; J7050; Q9967

== ENCOUNTER 2021-12-13 07:39 | Outpatient (CLI) | payer MEDICARE, MEDICAID, SELFPAY ==
--- NOTE | 2021-12-13 11:09 | ONC FU_ITS ---
Dr. Solorzano Patient Follow-Up Note Patient: Yulisa Kinney Unit #: [id number]: 1960 Dicatated By: Robin Solorzano M.D.Date of Visit:Dec 13, 2021 Onc Med Follow-up/Prog Note Chief Complaint: Waldenstrom macroglobulinemia. History of Present Illness: This is a 60 year-old woman with Waldenstrom macroglobulinemia, presenting with lymphocytosis, anemia, and splenomegly in association with IgM monoclonal gammopathy. She had been seeing Dr. Jasso in neurology for peripheral neuropathy symptoms. She had been diagnosed with bilateral carpal tunnel syndrome and lumbar radiculopathy. On 09/26/2019 she had a follow-up outpatient visit with Lucy Dean. Her laboratory studies included CBC showing hemoglobin 9.7 g and hematocrit 31.5%. The red cell indices were normal. The white blood cell count was elevated 14,900 with the differential showing 23% granulocytes, 68% lymphocytes, and 7% monocytes. The platelet count was normal at 165,000. Comprehensive metabolic profile showed borderline renal function with BUN 15 and creatinine 1.1 mg/dL. The albumin was normal at 4.2 g/dL with calculated serum globulin elevated at 4.4 g/dL. The liver enzymes were normal. Sed rate and CRP levels were normal. TSH was borderline at 4.74 ???IUl/mL. B12 was normal at 568 pg/mL. Folate was greater than 24.0 ng/mL. The serum iron studies showed slightly low transferrin saturation at 18%. Ferritin was normal at 65 ng/mL. Protein electrophoresis showed a monoclonal protein band quantitating at 1.2 g/dL. Immunofixation showed IgM lambda. I had seen her initially on 10/31/2019. She was noted to have a palpable spleen, but there was no peripheral lymphadenopathy noted. Her repeat CBC showed hemoglobin 9.9 g, white blood cell count 17,000, and platelet count 124,000. The differential showed 70% lymphocytes, 18% neutrophils, 8% monocytes, and 1% eosinophils. Comprehensive metabolic profile was unremarkable except for slightly elevated SGOT at 46/32 U/L. LDH was just slightly elevated at 231/214 U/L. Protein electrophoresis showed an M band quantitating at 1.1 g/dL. The quantitative immunoglobulins included IgG elevated at 1464/230 mg/dL, IgG normal at 1129 mg/dL, and IgA normal at 113 mg/dL. The free light chain assay showed elevated lambda light chain at 53.3 mg/L, kappa light chain 33.8 mg/L and kappa/lambda ratio within the normal range at 0.63. A whole blood flow cytometry on 11/06/2019 showed on monotypic B-cell population which was positive for CD19, CD20, and CD22. There was dim/partial positivity to FMC7 and CD25. A subset showed surface lambda light chain restriction, but the remaining population appeared to be light chain negative. The monotypic B cells were negative for CD5, CD10, CD23, CD11c, CD103, CD123, CD200, CD38, and CD34. The phenotype was felt to be nonspecific. Staging CT scans of the chest, abdomen, and pelvis on 11/14/2019 showed prominent left axillary lymph nodes, the largest measuring 10 mm, an enlarged celiac axis lymph node measuring 11.5 mm, a prominent left periaortic lymph node measuring 7 mm, and prominent inguinal lymph nodes measuring up to 10 mm. The spleen was enlarged measuring 13.1 cm. The right hepatic lobe was noted to be enlarged, but the liver otherwise appeared normal. She underwent bone marrow aspiration/biopsy on 12/05/2019. The interpretation was limited due to the bone marrow aspirate specimens having been hemodiluted without cellular spicules. Bone marrow was noted to be hypercellular on the biopsy specimen, averaging 60 to 90% cellularity. An extensive interstitial and diffuse lymphoid infiltrate was noted to involve a high proportion of the marrow space, estimated at 70 to 80%. The lymphoid cells were noted to be small and round with clumped nuclear chromatin. There was evidence of plasmacytic differentiation. The flow cytometry showed nonspecific phenotype, similar to the whole blood specimen. Iron stores were noted to be reduced, but not absent. Overall, the findings were not definitive, but they were suggestive of lymphoplasmacytic lymphoma. The MYD88 mutation was detected, consistent with Waldenstrom macroglobulinemia. On 01/13/2020 she began a course of treatment with rituximab in combination with ibrutinib 420 mg daily. She completed the initial 4 weekly infusions of rituximab with no adverse effects. She then continued the ibrutinib at 420 mg daily. As of her follow-up visit on 03/04/2020 there had been a significant decline in her M protein, to 0.7 g/dL, and there also was significant improvement in the splenomegaly. There was not a significant change in her clinical status. She then continued ibrutinib 420 mg daily, which she tolerated well. As of her follow-up visit on 05/04/2020 her repeat protein electrophoresis showed residual M protein quantitating at 0.7 g/dL. She began her second course of rituximab administered weekly for 4 weeks. She completed her week 4 treatment on 05/25/2020. She tolerated it very well, and she then continued her treatment with ibrutinib 420 mg daily. On 08/13/2020 she was admitted to the hospital with pneumonia, having presented to the emergency room with mental status changes. She improved clinically on antibiotic therapy. She was discharged home on 08/17/2020. At that point she had adequate oxygen saturation on room air. However, on outpatient follow-up with Lucy Dean she apparently was found to be significantly hypoxic, and she was then started on home oxygen. At her follow-up visit on 09/24/2020 her ibrutinib was temporarily put on hold due to visual changes. Ultimately these were felt to be more likely due to gabapentin. Her ibrutinib was supposed to have been restarted, but for some reason that did not happen, and she remained off treatment. I have been seeing her for a follow-up visit on 10/27/2020. At that point her blood counts were adequate. She remained oxygen dependent, but she otherwise appeared stable clinically, and I did have her restart the ibrutinib at 420 mg daily. During subsequent follow-up she had complained of worsening problems with balance/equilibrium. As a precaution, I did have her stop the ibrutinib. Her restaging CT scans on 01/25/2021 showed no lymphadenopathy within the chest, abdomen, or pelvis. There were emphysematous changes, but no suspicious pulmonary mass or nodule was noted. There was just mild plaque atelectasis in the lingula and left lower lobe. Some wall thickening of the stomach was felt to possibly reflect gastritis or underdistention of the stomach. Her brain MRI on 02/02/2021 showed mild small vessel changes and moderate parenchymal volume loss. Chronic lacunar infarcts in the cerebellum appeared unchanged. There was no evidence of mass lesion or other acute pathology. In the meantime, she also was seen for follow-up by Dr. Rosario. 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 As of 02/25/2021 she restarted treatment with ibrutinib. As of her follow-up visit on 04/20/2021 her M protein was stable at 0.5 g/dL, and she appeared stable clinically. She continued ibrutinib 420 mg daily. As of 06/25/2021 her treatment was put on hold due to a decline in her absolute neutrophil count to just under 1300. The following months she was able to restart the ibrutinib at 420 mg daily. Her other medical illnesses includehypertension, hyperlipidemia, fibromyalgia, and degenerative arthritis/degenerative disease of the spine. She has had multiple surgeries on both the cervical and lumbar spine. She reportedly was found to be positive for the Factor V Leiden mutation. She has history of smoking for 30 years, up to 2 packs of cigarettes daily. She quit smoking in 2006. INTERIM HISTORY: On 11/13/2021 she presented to the emergency room with a 2-week history of increased shortness of breath and weakness. Her CT pulmonary angiogram showed no evidence of pulmonary embolus. There were no pulmonary nodules or infiltrates noted and there were no other acute findings. She was treated for acute bronchitis. I had seen her for a follow-up visit on 11/23/2021. At that point she had multiple complaints including severe weakness/fatigue, cough with worsening shortness of breath, and generalized pain. Her laboratory studies showed leukocytosis and hypercalcemia. She was given IV hydration, and she was recommended to stop the ibrutinib. She was scheduled to have further evaluation with restaging CT scans of the chest, abdomen, and pelvis. However, by the following day she was feeling worse, and at that point she was seen in the emergency room and subsequently admitted to the hospital. She was treated for pneumonia and discharged 2 days later. Her chest CT showed emphysema, but there were no acute findings. The following day she was back in the emergency room with shortness of breath. She was given IV Solu-Medrol, and she continued her antibiotic therapy. I had seen her for a post hospital follow-up on 12/06/2021. At that point she was feeling a little better. Subsequent to that visit, her sputum cultures which were done during the hospitalization came back positive for Saccharomyces cerevisiae. She is seen for a scheduled visit. She says she is feeling pretty good right now. She still has limited activity, but she is able to cook and do a little bit of light work. ECOG score is 2. She still has no appetite. She is not having fever or night sweats. She has sinus drainage and she also complains of having sore throat. She has some shortness of breath, but her breathing is pretty good now. At home she is on oxygen at 2 L/min. She does not complain of cough and she has not been having chest pain. She currently has no GI/ complaints. She says her bowels are better now. She is not having as much back pain. She still has numbness/tingling in her hands and feet. Medications: Acetaminophen-Codeine #3 Tablet Oral PRN, Advair Diskus 1 Inhalation Aerosol Powder, Breath Activated Inhalation b.i.d., Allopurinol 1 Tablet (of 300 mg) Oral daily, Atorvastatin Calcium 1 Tablet (of 20 mg) Oral at bedtime, B-1 1 Tablet (of 100 mg) Oral daily, Benzonatate 1 Tablet (of 100 mg) Capsule Oral t.i.d. PRN, Calcium Citrate + D 1 Tablet (of 315-200 mg - Units) Oral b.i.d., Carafate 1 Tablet (of 1 g) Oral b.i.d., Cyclobenzaprine HCl (10 mg) Tablet Oral Take as Directed, Doxycycline Hyclate 1 Tablet (of 100 mg) Oral b.i.d., Folic Acid 1 Tablet (of 1 mg) Oral daily, Gabapentin 1 Tablet (of 600 mg) Oral at bedtime, Gabapentin 1 Capsule (of 300 mg) Oral every am, hydroCHLOROthiazide 1 Tablet (of 12.5 mg) Oral daily, Ibrutinib 1 Tablet (of 420 mg) Oral daily, Levothyroxine Sodium 1 Tablet (of 25 mcg) Oral daily, Loperamide A-D 1 Tablet (of 2 mg) Oral q 6 hours PRN, LORazepam 1 - 2 Tablet (of 0.5 mg) Oral t.i.d. PRN, Multivitamin Adult 1 Tablet Oral daily, Pantoprazole Sodium 1 Tablet (of 40 mg) Tablet, enteric coated Oral daily, Prochlorperazine Maleate 1 Tablet (of 10 mg) Oral q 4 hours PRN, rOPINIRole HCl 2 Tablet (of 0.25 mg) Oral at bedtime, Spiriva Respimat Aerosol, solution Inhalation daily, Stool Softener 1 Tablet (of 100 mg) Oral daily, traZODone HCl 0.5 - 1 Tablet (of 50 mg) Oral at bedtime, Vitamin C 1 Capsule (of 500 mg) Oral daily Allergies: Cortisone Acetate, Demerol, Dilaudid, Haldol, and Morphine Sulfate. Vital Signs: Performed on Dec 13, 2021 10:54 Height - 59.00 in Weight - 109.6 lbs (HIGH) BSA - 1.43 sq.m BMI - 22.14 Temperature - 98.5 F Pulse - 98 /min Respiration - 16 /min BP - 119/81 mm(hg) O2 Sat - 95 % (LOW) Pain - 0 Fatigue - 2 Physical Examination: Constitutional - She appears somewhat frail generally, Eyes - Sclerae nonicteric. Conjunctivae clear, ENMT - No lesions noted in the oral cavity, Hematologic/Lymphatic - No cervical, clavicular, or axillary adenopathy, Respiratory - Lungs sound clear with diminished air movement bilaterally, Cardiovascular - Heart rhythm is regular. There is no murmur, gallop, or rub noted, Abdomen - Soft. Liver is not enlarged. Spleen is not palpable. There is no abdominal mass or ascites noted and there is no inguinal adenopathy, Extremities - No edema, Neurologic - No focal neurologic deficits noted. Lab/Imaging: Test performed on Dec 09, 2021 08:41 Magnesium 1.3 mg/dL Sodium 136 mmol/L Potassium 3.0 mmol/L Chloride 99 mmol/L CO2 29 mmol/L Anion Gap 11.0 Glucose 78 mg/dL BUN 6 mg/dL Creatinine 0.7 mg/dL Cr Clearance (Est) 64.8700 mL/min eGFR 85.4 mL/min Calcium 9.4 mg/dL Osmolality - Calculated 278 mOsm/kg Test performed on Dec 06, 2021 11:36 Protein, Total 6.2 g/dL Albumin 3.5 g/dL Globulin 2.7 g/dL Bilirubin, Total 0.7 mg/dL ALT (SGPT) 20 U/L AST (SGOT) 30 U/L Alkaline Phosphatase 45 IU/L ESR (Sed Rate) < 1 mm/hr WBC 11.5 10 3/uL RBC 4.30 10 6/uL HGB 12.6 g/dL HCT 39.0 % MCV 90.7 fl MCH 29.3 pg MCHC 32.3 g/dL RDW 13.5 % Platelet Count 202 10 3/cmm MPV 11.7 fL Neutrophils 7.32 10 3/uL Lymphocytes 2.2 10 3/uL Monocytes 1.7 10 3/uL Eosinophils 0.1 10 3/uL Basophils 0.0 10 3/uL Neutrophil % 63.9 % Lymphocyte % 19.0 % Monocyte % 15.0 % Eosinophil % 1.0 % Basophils % 0.2 % NRBC % 0 % Problem List: 1. Waldenstr???m macroglobulinemia. 2. Peripheral neuropathy. 3. Hypertension. 4. Hyperlipidemia. 5. Fibromyalgia. 6. Degenerative arthritis and degenerative disease of the spine. She has associated cervical spinal canal stenosis. 7. She was reportedly found to be positive for the Factor V Leiden mutation. Problems Addressed with this Encounter and Plan: Patient with lymphoproliferative disorder with associated IgM monoclonal gammopathy. 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 The MYD88 mutation was detected, consistent with Waldenstr???m macroglobulinemia. She has significant peripheral neuropathy, which I have assumed to be related. Her treatment has included two 4-week courses of weekly rituximab, administered in January and in May 2020, together with ibrutinib 420 mg daily. Overall, she has tolerated the treatment well. She had a very good objective response, though without significant change in her clinical status. In September 2020 her ibrutinib was temporarily put on hold due to visual changes, but these were ultimately felt to be more likely associated with gabapentin. As of her follow-up visit on 10/27/2020 when she restarted ibrutinib at 420 mg daily. However, it was subsequently put on hold again due worsening equilibrium/balance. She had follow-up with Dr. 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 As of her follow-up visit on 02/25/2021 she restarted ibrutinib 420 mg daily. Unfortunately, despite the improvement in her IgM level, she continued to have significant peripheral neuropathy symptoms and she also continued to have somewhat marginal performance status. As of 06/24/2021 her ibrutinib was put on hold due to a decrease in her absolute neutrophil count. The following months she was able to restart the ibrutinib at 420 mg daily. On 11/25/2021 she was hospitalized after presenting with multiple complaints including severe weakness/fatigue, cough with increased shortness of breath, dysequilibrium, and generalized pain. She also had an elevated white blood cell count and her calcium was also mildly elevated. At the time, specific cause for the illness was not determined. However, her sputum culture subsequently did come back positive for Saccharomyces cerevisiae. She has been on treatment with Spiriva and Wixela inhalers, and those will be continued. She also will now start treatment with budesonide 9 mg daily. I will arrange for pulmonary consultation with Dr. Reyes. At least for the time being her ibrutinib will remain on hold. I will see her again in 1 month. Signed By: Robin Solorzano M.D. <<Signature on File>>
== END 2021-12-13 07:40 | disposition home or self-care (01) ==
PROVIDERS: PCP Physician Assistant; Visit Provider Internal Medicine Medical Oncology
DX: C88.0 Waldenstrom macroglobulinemia (principal); D47.2 Monoclonal gammopathy; G62.9 Polyneuropathy, unspecified; I10 Essential (primary) hypertension; I70.0 Atherosclerosis of aorta; E78.2 Mixed hyperlipidemia; M79.7 Fibromyalgia; M47.9 Spondylosis, unspecified; Z79.899 Other long term (current) drug therapy
CPT/HCPCS: 99214

== ENCOUNTER 2022-01-05 14:04 | Oncology outpatient (recurring) (ONCR) | payer MEDICARE, MEDICAID, SELFPAY ==
[2022-01-05 14:53] LABS: Basophils % 0.3 %; Hematocrit 35.3 % (37.0-47.0); Hemoglobin 11.2 g/dL (11.5-15.3); Lymphocytes # 2.1 10^3/uL (0.8-4.8); Lymphocytes % 23.6 %; Mean Corpuscular HGB Conc 31.7 g/dL (30.0-36.0); Mean Corpuscular Hemoglobin 29.3 pg (28.0-34.0); Mean Corpuscular Volume 92.4 fl (81-99); Mean Platelet Volume 10.3 fL (7.4-10.4); Monocytes # 1.3 10^3/uL (0.2-0.9); Monocytes % 14.2 %; Neutrophils # 5.57 10^3/uL (1.8-7.7); Neutrophils % 61.6 %; Nucleated Red Blood Cells % 0 %; Platelet Count 276 10^3/cmm (130-400); Red Blood Count 3.82 10^6/uL (4.1-5.3); Red Cell Distribution Width 14.8 % (12.1-15.1); White Blood Count 9.1 10^3/uL (4.0-10.0)
[2022-01-05 14:59] LABS: Erythrocyte Sedimentation Rate 1 mm/hr (0-15)
[2022-01-05 15:07] LABS: Alanine Aminotransferase 23 U/L (0-33); Albumin Level 4.2 g/dL (3.5-5.2); Alkaline Phosphatase 64 IU/L (35-105); Anion Gap 13.8 (5-19); Aspartate Amino Transferase 35 U/L (0-32); Blood Urea Nitrogen 14 mg/dL (8-23); Calcium 9.6 mg/dL (8.5-10.5); Carbon Dioxide 27 mmol/L (22-29); Chloride 98 mmol/L (98-107); Globulin 2.6 g/dL (1.3-4.6); Glomerular Filtration Rate 73.2 mL/min (90-130); Glucose 93 mg/dL (65-115); Immunoglobulin IGA 79 mg/dL (70-400); Immunoglobulin IGG 595 mg/dL (700-1600); Osmolality Calculated 280 mOsm/kg (285-295); Potassium 3.8 mmol/L (3.5-5.1); Sodium 135 mmol/L (136-145); Total Bilirubin 0.4 mg/dL (0.15-1.2); Total Protein 6.8 g/dL (6.6-8.7)
[2022-01-05 15:22] LABS: Immunoglobulin IGM 949 mg/dL (40-230)
[2022-01-06 11:47] LABS: ABNORMAL PROTEIN BAND 1 0.8 g/dL (NONE DETECTED); ALBUMIN 3.9 g/dL (3.8-4.8); ALPHA 1 GLOBULIN 0.3 g/dL (0.2-0.3); ALPHA 2 GLOBULIN 0.8 g/dL (0.5-0.9); BETA 1 GLOBULIN 0.5 g/dL (0.4-0.6); BETA 2 GLOBULIN 0.3 g/dL (0.2-0.5); GAMMA GLOBULIN 1.2 g/dL (0.8-1.7)
== END 2022-02-01 23:59 | disposition home or self-care (01) ==
PROVIDERS: PCP Physician Assistant; Referring Provider Physician Assistant; Visit Provider Physician Assistant
DX: C88.0 Waldenstrom macroglobulinemia (principal); D80.1 Nonfamilial hypogammaglobulinemia; D47.2 Monoclonal gammopathy; Z79.899 Other long term (current) drug therapy
CPT/HCPCS: 80053; 82784; 84155; 84165; 85025; 85651

== ENCOUNTER → 2022-01-13 10:47 | Outpatient (BNVA) | payer MEDICARE, MEDICAID, SELFPAY | PROVIDERS: PCP Physician Assistant; Visit Provider Internal Medicine Critical Care Medicine | DX: J18.9 Pneumonia, unspecified organism (principal); J44.9 Chronic obstructive pulmonary disease, unspecified; R13.10 Dysphagia, unspecified; Z87.891 Personal history of nicotine dependence; I10 Essential (primary) hypertension; E78.5 Hyperlipidemia, unspecified | CPT/HCPCS: 99204 ==

== ENCOUNTER 2022-01-27 10:23 | Outpatient (CLI) | payer MEDICARE, MEDICAID, SELFPAY ==
--- NOTE | 2022-01-27 14:38 | PFTS_ITS ---
Date of Study:01/27/22 Date of Dictation: MECHANICS: Forced vital capacity (FVC) is normal. Forced expiratory volume in one second (FEV1) is normal. FEV1/FVC is reduced. FLOW VOLUME LOOP: Reduced flow at all lung volumes with significant scooping. LUNG VOLUMES: Total lung capacity (TLC) is normal. Residual volume (RV) is increased. DIFFUSING CAPACITY FOR CARBON MONOXIDE: Normal. INTERPRETATION: The postbronchodilator spirometry is consistent with mild airflow obstruction. There is a significant postbronchodilator response. Lung volumes are consistent with air trapping. Gas exchange (DLCO) is normal. MTDD
== END 2022-01-27 10:24 | disposition home or self-care (01) ==
LOC: RT 10:24
PROVIDERS: PCP Physician Assistant; Visit Provider Internal Medicine Critical Care Medicine
DX: J44.9 Chronic obstructive pulmonary disease, unspecified (principal); F17.210 Nicotine dependence, cigarettes, uncomplicated
CPT/HCPCS: 94060; 94726; 94729; J7614

== ENCOUNTER 2022-02-07 10:04 | Outpatient (CLI) | payer MEDICARE, MEDICAID, SELFPAY ==
--- NOTE | 2022-02-07 11:00 | FL_ITS ---
WS: [id number] MODIFIED BARIUM SWALLOW HISTORY: Chronic dysphagia. FLUOROSCOPY TIME: 3min [id number] # of spot films: 1 Modified barium swallow was performed by the speech pathologist. Fluoroscopy was provided with the pa tient in a lateral projection. Multiple food consistencies were provided. No aspiration or laryngeal penetration was identified. There is persistent mild coating of the pharyn x with the barium. Food products became briefly lodged in the region of the epiglottis. Poor emptying of the esophagus with to and fro motion. Esophageal dysmotility. FL/FL barium swallow modifd [id number] IMPRESSION: 1. No aspiration or laryngeal penetration. 2. Mild diffuse esophageal dysmotility. 3. Poor emptying of the esophagus with persistent pharyngeal coating with lashawn um after swallowing. Please see speech therapist report also for recommendations.
== END 2022-02-07 10:05 | disposition home or self-care (01) ==
LOC: RAD 10:07
PROVIDERS: PCP Physician Assistant; Visit Provider Internal Medicine Critical Care Medicine
DX: J69.0 Pneumonitis due to inhalation of food and vomit (principal); R13.10 Dysphagia, unspecified
CPT/HCPCS: 74230; 92611

== ENCOUNTER → 2022-02-16 10:52 | Outpatient (BNVA) | payer MEDICARE, MEDICAID, SELFPAY | PROVIDERS: PCP Physician Assistant; Visit Provider Surgery | DX: R13.10 Dysphagia, unspecified (principal) | CPT/HCPCS: 99203 ==

== ENCOUNTER 2022-02-17 11:36 | Oncology outpatient (recurring) (ONCR) | payer MEDICARE, MEDICAID, SELFPAY ==
[2022-02-17 11:41] LABS: Basophils % 0.5 %; Eosinophils % 0.2 %; Hematocrit 34.9 % (37.0-47.0); Lymphocytes # 1.9 10^3/uL (0.8-4.8); Mean Corpuscular HGB Conc 34.4 g/dL (30.0-36.0); Mean Corpuscular Hemoglobin 29.3 pg (28.0-34.0); Mean Corpuscular Volume 85.3 fl (81-99); Mean Platelet Volume 9.6 fL (7.4-10.4); Neutrophils # 3.05 10^3/uL (1.8-7.7); Neutrophils % 50.1 %; Nucleated Red Blood Cells % 0 %; Platelet Count 243 10^3/cmm (130-400); Red Blood Count 4.09 10^6/uL (4.1-5.3); Red Cell Distribution Width 13.4 % (12.1-15.1); White Blood Count 6.1 10^3/uL (4.0-10.0)
[2022-02-17 11:49] LABS: Erythrocyte Sedimentation Rate < 1 mm/hr (0-15)
[2022-02-17 12:07] LABS: Slide Review Slide Review Perform
[2022-02-17 12:09] LABS: Alanine Aminotransferase 34 U/L (0-33); Alkaline Phosphatase 61 IU/L (35-105); Anion Gap 16.9 (5-19); Aspartate Amino Transferase 49 U/L (0-32); Blood Urea Nitrogen 12 mg/dL (8-23); Calcium 9.5 mg/dL (8.5-10.5); Carbon Dioxide 23 mmol/L (22-29); Chloride 94 mmol/L (98-107); Globulin 2.9 g/dL (1.3-4.6); Glucose 95 mg/dL (65-115); Osmolality Calculated 270 mOsm/kg (285-295); Potassium 3.9 mmol/L (3.5-5.1); Sodium 130 mmol/L (136-145); Total Bilirubin 0.3 mg/dL (0.15-1.2); Total Protein 6.9 g/dL (6.6-8.7)
[2022-02-17 14:24] LABS: Bilirubin Urine Neg (Negative); Blood Urine Neg (Negative); Glucose Urine UA Norm (Normal); Ketones Urine Negative (Negative); Leukocyte Esterase Urine Negative (Negative); Nitrate Urine Negative (Negative); Protein Urine Neg (Negative); Specific Gravity, Urine 1.005 (1.005-1.030); Urine Appearance Clear (CLEAR); Urine Color Yellow (Yellow); Urobilinogen Urine Norm (Negative); pH Urine 7 (5-7)
[2022-02-17 14:26] LABS: Add Urine Culture? No; RBC Urine 0-4 /hpf (0-2); Squamous Epithelial Cell Urine 0-4 /hpf (0-5)
[2022-02-18 16:33] LABS: ABNORMAL PROTEIN BAND 1 0.8 g/dL (NONE DETECTED); ALPHA 1 GLOBULIN 0.3 g/dL (0.2-0.3); ALPHA 2 GLOBULIN 0.8 g/dL (0.5-0.9); BETA 1 GLOBULIN 0.5 g/dL (0.4-0.6); BETA 2 GLOBULIN 0.3 g/dL (0.2-0.5); GAMMA GLOBULIN 1.2 g/dL (0.8-1.7)
[2022-02-20 06:03] LABS: CARDIOLIPIN AB (IGA) <2.0 APL-U/mL; CARDIOLIPIN AB (IGG) <2.0 GPL-U/mL; CARDIOLIPIN AB (IGM) <2.0 MPL-U/mL
== END 2022-03-03 23:59 | disposition home or self-care (01) ==
LOC: ONCMED 11:37
PROVIDERS: Nurse Practitioner Family; PCP Physician Assistant; Visit Provider Internal Medicine Medical Oncology
DX: C88.0 Waldenstrom macroglobulinemia (principal); D47.2 Monoclonal gammopathy; G62.9 Polyneuropathy, unspecified; H53.9 Unspecified visual disturbance; R26.9 Unspecified abnormalities of gait and mobility; R53.1 Weakness; R53.83 Other fatigue; R13.10 Dysphagia, unspecified; R30.0 Dysuria; Z79.899 Other long term (current) drug therapy
CPT/HCPCS: 36415; 80053; 81001; 84155; 84165; 85025; 85651; 86147; 99215

== ENCOUNTER → 2022-03-02 14:50 | Outpatient (BNVA) | payer MEDICARE, MEDICAID, SELFPAY | PROVIDERS: PCP Physician Assistant; Visit Provider Internal Medicine Critical Care Medicine | DX: J18.9 Pneumonia, unspecified organism (principal); J44.9 Chronic obstructive pulmonary disease, unspecified; R13.10 Dysphagia, unspecified; Z87.891 Personal history of nicotine dependence; E78.5 Hyperlipidemia, unspecified; I10 Essential (primary) hypertension | CPT/HCPCS: 99214 ==

== ENCOUNTER 2022-03-08 09:46 | Emergency (ER) | payer MEDICARE, MEDICAID, SELFPAY ==
[2022-03-08 09:52] VITALS: BP 94/64; PULSE 107; RESP 21; TEMP 37.3; O2SAT 94; BMI 23.0
--- NOTE | 2022-03-08 10:39 | XRR_ITS ---
PROCEDURE INFORMATION: Exam: XR Chest Exam date and time: 03/08/2022 10:49 AM Age: 61 years old Clinical indication: Fever; Additional info: Fevers, fatigue TECHNIQUE: Imaging protocol: Radiologic exam of the chest. Views: 1 view. Total images: 1 COMPARISON: CT chest abd pel w con* 12/09/2021 11:53 AM FINDINGS: Lungs: Nonspecific left mid lung and lung base opacity favors atelectasis or pneumonia. Pleural spaces: Unremarkable. No pleural effusion. No pneumothorax. Heart/Mediastinum: Unremarkable. No cardiomegaly. Bones/joints: Old right rib fracture evident. Osseous structures are unchanged from the prior exam. XR/XR chest 1V portable [id number] IMPRESSION: Nonspecific left mid lung and lung base opacity favors atelectasis or pneumonia.
--- NOTE | 2022-03-08 10:40 | ED_ITS ---
HPI - General Adult General: Chief complaint: Fever Stated complaint: Fever, sob, body aches Time Seen by Provider: 03/08/22 10:25 Source: patient Mode of arrival: ambulatory Limitations: no limitations History of Present Illness: Patient is a nice 61-year-old female with an extensive PMH here for complaints of weakness and fatigue as well as subjective fevers over the past 48 hours. She states she is having bilateral rib pain with inspiration and a cough. She does have COPD. She states she wears 2 L of oxygen as needed. She follows with Dr. Reyes/pulmonology for this. Patient denies any recent sick contacts. She is not having any chest pain. Patient states she does not overly feel short of breath apart from her baseline. She is not having any abdominal pain, nausea, vomiting, diarrhea. Onset (ago): day(s) Associated symptoms: Reports dyspnea (chronic-at baseline); Deny chest pain, headache(s), nausea, rash, palpitations, syncope or vomiting Treatments prior to arrival: none Review of Systems Const: Reports: fever(s) (subjective) and fatigue; Denies: chills or body aches ENMT: Denies: throat pain, odynophagia, nasal discharge or nasal congestion Card: Denies: chest pain, palpitations, irregular heart rhythm, edema, swelling of feet/ankles, lightheadedness, syncope or pre-syncope Resp: Reports: dyspnea (chronic-at baseline) and pain on inspiration; Denies: wheezing, change in phlegm color or hemoptysis GI: Denies: abdominal pain, nausea, vomiting or diarrhea : Denies: flank pain, dysuria or hematuria Musc: Denies: neck pain, back pain, extremity pain or joint pain Skin/Breast: Denies: rash Neuro: Denies: headache(s), numbness in extremities, weakness in extremities or sensory changes PFSH ED PFSH: Medical History Anxiety Carpal tunnel syndrome, bilateral upper limbs Cervical post-laminectomy syndrome Degenerative arthritis Fibromyalgia Hyperlipidemia Hypersomnolence Hypertension Hypertension Hypothyroidism IgM monoclonal gammopathy of uncertain significance Lumbar post-laminectomy syndrome Lumbar radiculopathy Peripheral neuropathy Restless leg syndrome Tear meniscus knee Waldenstrom macroglobulinemia Surgical History H/O section History of cervical spinal surgery [facility]: 02/14/2017 Posterolateral cervical fusion C2-C6 03/02/2016 C3-C4 ACDFF, removal of prior anterior cervical plate, C4-C5 2004 C4-C5 ACDFF All operative reports scanned to chart History of section, low transverse X2 History of esophagogastroduodenoscopy (EGD) History of facial surgery 1992 Following trauma, x3 History of lumbar surgery 2013, 2011 and 2010 [facility]: Lumbar fusion/fixation History of shoulder surgery Right x2 Hx of colonoscopy Family History Mother Lung disease Father Myocardial infarction Hypertension Diabetes Social History Smoking and tobacco status: former smoker Quit status (tobacco): has quit using tobacco Year quit tobacco: 2006 Former quit date comment: 1 ppd x 35 years Alcohol intake: current Alcohol intake frequency: few times a week Household members: significant other Marital status: Life Partner Current occupational status: disabled History of recent travel: No Physical Exam Const: COMMON NORMALS: no acute distress, patient oriented x3, no limitations and alert GENERAL APPEARANCE: cooperative ORIENTATION/CONSCIOUSNESS: Yes awake, Yes oriented to person, Yes oriented to place and Yes oriented to time HENMT: COMMON NORMALS: normocephalic and atraumatic HEAD & SCALP: normal to inspection, normocephalic and atraumatic Chest: COMMONS NORMALS: normal inspection of the chest and normal palpation of entire chest wall Resp: COMMON NORMALS: normal respiratory effort and clear to auscultation bilaterally EFFORT & INSPECTION: No tachypneic, No respiratory distress, No labored, No grunting, No stridor, No Actively coughing and No retractions AUSCULTATION: clear to auscultation bilaterally Cardio: COMMON NORMALS: regular rhythm RATE: tachycardic (mild) RHYTHM: regular rhythm GI: COMMON NORMALS: Normal to inspection, nondistended, normoactive bowel sounds present, Soft to palpation and non-tender PALPATION: Yes Soft to palpation Back/Pelvis: COMMON NORMALS: thoracic and lumbar spine normal to inspection, no thoracic nor lumbar tenderness and thoraco-lumbar ROM normal Extremity: COMMON NORMALS: normal to inspection GENERAL: Yes normal exam except as noted Neuro: DIOGO COMA SCALE: document GCS findings Diogo coma scale eye opening: Spontaneous [place] coma scale verbal response: Orientated [place] coma scale motor response: Obey commands Diogo coma scale total score: 15 COMMON NORMALS: patient oriented x3, moves all extremities, no focal motor deficits and no sensory deficits noted SENSORIUM/ORIENTATION: Yes alert, Yes oriented to person, Yes oriented to place and Yes oriented to time Skin: COMMON NORMALS: no rashes or lesions noted GENERAL SKIN EXAM: no rashes or lesions noted Course Vital Signs: Vital signs: Vital Signs Temperature 98.3 F 03/08/22 11:49 Pulse Rate 106 H 03/08/22 11:39 Respiratory Rate 16 03/08/22 11:39 Blood Pressure 124/73 03/08/22 11:39 Pulse Oximetry 93 03/08/22 11:39 [facility] - General Adult Medical Decision Making Patient clinically appears in no acute distress. Vital signs are stable apart from some very mild tachycardia. Lab work shows mild leukocytosis with a white count of 12.9. She does have a normal lactate. Patient chronically has hyponatremia. Her sodium today is 127. She is slightly hypokalemic at 2.9. She was given 60 meq here for this. She does take potassium supplementation at home. We will have her increase this temporarily. Discussed having labs rechecked by primary care in the next 2 to 3 days. Her UA is clear. COVID- negative. CXR shows possible left midlung/base pneumonia. Patient will be placed on antibiotics. I do not see any indication for hospitalization at this time. She is satting normally on room air and appears in no respiratory dis tress. Strict return to ED precautions verbally given. Lab Data : 03/08/22 11:28 03/08/22 13:06 Radiology Impressions Chest X-Ray 03/08/22 10:39 IMPRESSION: Nonspecific left mid lung and lung base opacity favors atelectasis or pneumonia. Laboratory Results WBC 12.9 10^3/uL (4.0-10.0) H 03/08/22 11:28 RBC 4.55 10^6/uL (4.1-5.3) 03/08/22 11:28 Hgb 13.1 g/dL (11.5-15.3) 03/08/22 11:28 Hct 39.5 % (37.0-47.0) 03/08/22 11:28 MCV 86.8 fl (81-99) 03/08/22 11:28 MCH 28.8 pg (28.0-34.0) 03/08/22 11:28 MCHC 33.2 g/dL (30.0-36.0) 03/08/22 11:28 RDW 13.9 % (12.1-15.1) 03/08/22 11:28 Plt Count 208 10^3/cmm (130-400) 03/08/22 11:28 MPV 11.1 fL (7.4-10.4) H 03/08/22 11:28 Neut % (Auto) 76.0 % 03/08/22 11:28 Lymph % (Auto) 12.2 % 03/08/22 11:28 [place] % (Auto) 10.3 % 03/08/22 11:28 Eos % (Auto) 0.3 % 03/08/22 11:28 Baso % (Auto) 0.5 % 03/08/22 11:28 Neut # (Auto) 9.79 10^3/uL (1.8-7.7) H 03/08/22 11:28 Lymph # (Auto) 1.6 10^3/uL (0.8-4.8) 03/08/22 11:28 [place] # (Auto) 1.3 10^3/uL (0.2-0.9) H 03/08/22 11:28 Eos # (Auto) 0.0 10^3/uL (0.0-0.8) 03/08/22 11:28 Baso # (Auto) 0.1 10^3/uL (0.0-0.1) 03/08/22 11:28 Nucleated RBC % (auto) 0 % 03/08/22 11:28 Nucleated RBCs # 0.0 /100WBC 03/08/22 11:28 Sodium 127 mmol/L (136-145) L 03/08/22 13:06 Potassium 2.9 mmol/L (3.5-5.1) L 03/08/22 13:06 Chloride 92 mmol/L (98-107) L 03/08/22 13:06 Carbon Dioxide 24 mmol/L (22-29) 03/08/22 13:06 Anion Gap 13.9 (5-19) 03/08/22 13:06 BUN 11 mg/dL (8-23) 03/08/22 13:06 Creatinine 0.8 mg/dL (0.5-0.9) 03/08/22 13:06 GFR Calculation 73.2 mL/min (90-130) L 03/08/22 13:06 Glucose 98 mg/dL (65-115) 03/08/22 13:06 Calculated Osmolality 263 mOsm/kg (285-295) L 03/08/22 13:06 Lactic Acid 1.0 mmol/L (0.5-2.2) 03/08/22 13:06 Calcium 8.4 mg/dL (8.5-10.5) L 03/08/22 13:06 Total Bilirubin 0.5 mg/dL (0.15-1.2) 03/08/22 13:06 AST 35 U/L (0-32) H 03/08/22 13:06 ALT 19 U/L (0-33) 03/08/22 13:06 Alkaline Phosphatase 69 IU/L (35-105) 03/08/22 13:06 Total Protein 6.6 g/dL (6.6-8.7) 03/08/22 13:06 Albumin 3.0 g/dL (3.5-5.2) L 03/08/22 13:06 Globulin 3.6 g/dL (1.3-4.6) 03/08/22 13:06 Urine Color Yellow (Yellow) 03/08/22 11:28 Urine Appearance Clear (CLEAR) 03/08/22 11:28 Urine pH 7 (5-7) 03/08/22 11:28 Ur Specific [place] 1.000 (1.005-1.030) L 03/08/22 11:28 Urine Protein Neg (Negative) 03/08/22 11:28 Urine Glucose (UA) Norm (Normal) 03/08/22 11:28 Urine Ketones Negative (Negative) 03/08/22 11:28 Urine Blood Neg (Negative) 03/08/22 11:28 Urine Nitrate Negative (Negative) 03/08/22 11:28 Urine Bilirubin Neg (Negative) 03/08/22 11:28 Urine Urobilinogen Norm mg/dL (Negative) 03/08/22 11:28 Ur Leukocyte Esterase Negative (Negative) 03/08/22 11:28 Coronavirus 229E (PCR) Not detected (NOT DETECT) 03/08/22 11:28 SARS-CoV-2 (PCR) Not detected (NOT DETECT) 03/08/22 11:28 Discharge Plan Discharge Patient Disposition: Home Clinical Impression: Left lower lobe pneumonia, Hypokalemia Condition: Stable Prescriptions: New amoxicillin-pot clavulanate 875-125 mg tablet 1 tab PO BID Qty: 14 0RF azithromycin 250 mg tablet See Rx Instructions .ROUTE .COMPLEX Qty: 6 0RF Rx Instructions: take 500 mg today (day 1), then 250 mg for 4 days (days 2-5) No Action (DME) Seated walker See Rx Instructions .Route .MEDSUPPLY Qty: 1 0RF Rx Instructions: As directed hydrochlorothiazide 12.5 mg capsule 12.5 mg PO DAILY 0RF folic acid 1 mg tablet 1 mg PO DAILY 0RF trazodone 50 mg tablet 50 mg PO BEDTIME 0RF pantoprazole 40 mg tablet,delayed release (DR/EC) 40 mg PO DAILY 0RF thiamine HCl (vitamin B1) 100 mg tablet 100 mg PO DAILY 0RF loperamide 2 mg capsule 2 mg PO Q6H PRN (Reason: Diarrhea) 0RF docusate sodium [Stool Softener] 100 mg capsule 100 mg PO DAILY 0RF acetaminophen-codeine 300-30 mg tablet 1 tab PO Q4H PRN (Reason: pain) Qty: 30 0RF fluticasone propion-salmeterol [Wixela Inhub] 250-50 mcg/dose blister with device 1 inh inhalation BID 0RF budesonide 9 mg tablet,delayed and ext.release 9 mg PO DAILY 0RF metoprolol tartrate 25 mg tablet 50 mg PO BID Qty: 120 3RF potassium chloride 20 mEq tablet extended release 20 meq PO DAILY Qty: 90 3RF atorvastatin [Lipitor] 20 mg Tablet 20 mg PO DAILY 0RF prochlorperazine maleate 10 mg Tablet 10 mg PO Q4H PRN (Reason: Nausea) 0RF lorazepam 0.5 mg Tablet 0.5 - 1 mg PO TID PRN (Reason: Anxiety) 0RF ropinirole 0.25 mg Tablet 0.25 - 0.5 mg PO BEDTIME 0RF allopurinol 300 mg Tablet 300 mg PO DAILY 0RF Imbruvica 140 mg Tablet 420 mg PO DAILY 0RF benzonatate 100 mg capsule 100 mg PO TID PRN (Reason: cough) Qty: 30 1RF multivitamin Tablet 1 tab PO DAILY 0RF cyclobenzaprine 10 mg Tablet See Rx Instructions .ROUTE .COMPLEX 0RF Rx Instructions: 10 mg orally qam and 20mg po bedtime ascorbic acid (vitamin C) [Vitamin C] 500 mg Tablet 500 mg PO BID 0RF calcium carbonate-vitamin D3 [Calcium 500 + D] 500 mg(1,250mg) -200 unit Tablet See Rx Instructions .ROUTE .COMPLEX 0RF Rx Instructions: 1 tab orally in the morning/ 2 tabs orally in the evening Carafate 1 gram Tablet 1 g PO BID 0RF gabapentin 300 mg Capsule See Rx Instructions .ROUTE .COMPLEX 0RF Rx Instructions: 300 mg orally in the morning / 600 mg orally in the evening levothyroxine 25 mcg Tablet 25 mcg PO QAM Qty: 30 0RF Spiriva with HandiHaler 18 mcg capsule, w/inhalation device 1 cap inhalation DAILY Qty: 30 0RF Rx Instructions: puncture 1 cap using device; one dose = 2 inhalations Imbruvica 420 mg Tablet 420 mg PO DAILY Qty: 28 0RF Discharge Orders: Discharge ED (Routine); Ordered 03/08/22 Ordered By: Oanh Reece Referrals: Lucy Dean PA [Primary Care Provider] - Activity Restrictions/Additional Instructions: Please fill and begin your antibiotics immediately. Begin taking your potassium supplements twice daily over the next 3 days. Please follow-up with primary care in the next 2 to 3 days to have labs rechecked. You need to return to the emergency department for worsening symptoms or non-improvement of symptoms despite antibotics. 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
[2022-03-08] MEDS: sodium chloride 0.9% 1,000 ML 500 ML IV (11:21)
[2022-03-08 11:39] VITALS: BP 124/73; PULSE 106; RESP 16; O2SAT 93
[2022-03-08 11:43] LABS: Add Urine Microscopic? NO; Charge for UA Resulting for Rev
[2022-03-08 11:45] LABS: Bilirubin Urine Neg (Negative); Blood Urine Neg (Negative); Glucose Urine UA Norm (Normal); Ketones Urine Negative (Negative); Leukocyte Esterase Urine Negative (Negative); Nitrate Urine Negative (Negative); Protein Urine Neg (Negative); Urine Appearance Clear (CLEAR); Urine Color Yellow (Yellow); Urobilinogen Urine Norm (Negative); pH Urine 7 (5-7)
[2022-03-08 11:49] VITALS: TEMP 36.8
[2022-03-08 12:09] LABS: Basophils # 0.1 10^3/uL (0.0-0.1); Basophils % 0.5 %; Eosinophils % 0.3 %; Hematocrit 39.5 % (37.0-47.0); Hemoglobin 13.1 g/dL (11.5-15.3); Lymphocytes # 1.6 10^3/uL (0.8-4.8); Lymphocytes % 12.2 %; Mean Corpuscular HGB Conc 33.2 g/dL (30.0-36.0); Mean Corpuscular Hemoglobin 28.8 pg (28.0-34.0); Mean Corpuscular Volume 86.8 fl (81-99); Mean Platelet Volume 11.1 fL (7.4-10.4); Monocytes # 1.3 10^3/uL (0.2-0.9); Monocytes % 10.3 %; Neutrophils # 9.79 10^3/uL (1.8-7.7); Nucleated Red Blood Cells % 0 %; Platelet Count 208 10^3/cmm (130-400); Red Blood Count 4.55 10^6/uL (4.1-5.3); Red Cell Distribution Width 13.9 % (12.1-15.1); White Blood Count 12.9 10^3/uL (4.0-10.0)
[2022-03-08 13:21] LABS: Adenovirus Not Detected (NOT DETECT); Chlamydia Pneumoniae Not Detected (NOT DETECT); Coronavirus 229E,HKU1,NL63,OC4 Not Detected (NOT DETECT); Human Metapneumovirus Not Detected (NOT DETECT); Human Rhinovirus/Enterovirus Not Detected (NOT DETECT); Influenza A Not Detected (NOT DETECT); Influenza A H1 Not Detected (NOT DETECT); Influenza A H1-2009 Not Detected (NOT DETECT); Influenza A H3 Not Detected (NOT DETECT); Influenza B Not Detected (NOT DETECT); Mycoplasma Pneumoniae Not Detected (NOT DETECT); Parainfluenza Virus Type 1 Not Detected (NOT DETECT); Parainfluenza Virus Type 2 Not Detected (NOT DETECT); Parainfluenza Virus Type 3 Not Detected (NOT DETECT); Parainfluenza Virus Type 4 Not Detected (NOT DETECT); Respiratory Syncytial Virus A Not Detected (NOT DETECT); Respiratory Syncytial Virus B Not Detected (NOT DETECT); SARS-COV-2 Not Detected (NOT DETECT)
[2022-03-08 13:45] LABS: Alanine Aminotransferase 19 U/L (0-33); Alkaline Phosphatase 69 IU/L (35-105); Anion Gap 13.9 (5-19); Aspartate Amino Transferase 35 U/L (0-32); Blood Urea Nitrogen 11 mg/dL (8-23); Calcium 8.4 mg/dL (8.5-10.5); Carbon Dioxide 24 mmol/L (22-29); Chloride 92 mmol/L (98-107); Globulin 3.6 g/dL (1.3-4.6); Glomerular Filtration Rate 73.2 mL/min (90-130); Glucose 98 mg/dL (65-115); Osmolality Calculated 263 mOsm/kg (285-295); Sodium 127 mmol/L (136-145); Total Bilirubin 0.5 mg/dL (0.15-1.2); Total Protein 6.6 g/dL (6.6-8.7)
[2022-03-08 13:49] LABS: Potassium 2.9 mmol/L (3.5-5.1)
[2022-03-08] MEDS: potassium chloride ER 20 mEq Tablet 60 MEQ PO (14:25)
[2022-03-08 14:36] VITALS: PULSE 103; RESP 16; O2SAT 94
== END 2022-03-08 14:38 | disposition home or self-care (01) ==
PROVIDERS: Emergency Provider Physician Assistant; PCP Physician Assistant
DX: J18.9 Pneumonia, unspecified organism (principal); E87.6 Hypokalemia; Z87.891 Personal history of nicotine dependence; I10 Essential (primary) hypertension
CPT/HCPCS: 36415; 71045; 80053; 81003; 83605; 85025; 87040; 87635; 96360; 99284; J7030

== ENCOUNTER 2022-03-17 14:03 | Oncology outpatient (recurring) (ONCR) | payer MEDICARE, MEDICAID, SELFPAY ==
[2022-03-17 14:32] LABS: Hematocrit 36.8 % (37.0-47.0); Hemoglobin 11.8 g/dL (11.5-15.3); Mean Corpuscular HGB Conc 32.1 g/dL (30.0-36.0); Mean Corpuscular Volume 90.4 fl (81-99); Mean Platelet Volume 9.8 fL (7.4-10.4); Platelet Count 326 10^3/cmm (130-400); Red Blood Count 4.07 10^6/uL (4.1-5.3); Red Cell Distribution Width 13.5 % (12.1-15.1); White Blood Count 6.6 10^3/uL (4.0-10.0)
[2022-03-17 14:46] LABS: Alanine Aminotransferase 18 U/L (0-33); Albumin Level 3.7 g/dL (3.5-5.2); Alkaline Phosphatase 73 IU/L (35-105); Anion Gap 12.8 (5-19); Aspartate Amino Transferase 35 U/L (0-32); Blood Urea Nitrogen 5 mg/dL (8-23); Calcium 9.1 mg/dL (8.5-10.5); Carbon Dioxide 28 mmol/L (22-29); Chloride 98 mmol/L (98-107); Globulin 3.3 g/dL (1.3-4.6); Glomerular Filtration Rate 85.4 mL/min (90-130); Glucose 99 mg/dL (65-115); Osmolality Calculated 277 mOsm/kg (285-295); Potassium 3.8 mmol/L (3.5-5.1); Sodium 135 mmol/L (136-145); Total Bilirubin 0.2 mg/dL (0.15-1.2)
[2022-03-17 15:08] LABS: Absolute Eosinophils 0.1 10^3/cmm (0.0-0.7); Absolute Segmented Neutrophil 2.4 10/cmm (1.6-7.1); Eosinophils 3 %; Lymphocytes 31 %; Monocytes Absolute 1.2 10^3/cmm (0.1-0.6); Segmented Neutrophils 36 %; Slide Review Slide Review Perform; Total Cells Counted 100 (0-100)
[2022-03-17 15:09] LABS: Absolute Neutrophil 2.4 10^3/cmm (1.4-6.5); Lymphocytes Absolute 2.8 10^3/cmm (1.2-3.4); Platelet Estimate Normal (Normal)
[2022-03-17 15:20] LABS: Erythrocyte Sedimentation Rate < 1 mm/hr (0-15)
[2022-03-17 17:05] LABS: Immunoglobulin IGA 61 mg/dL (70-400); Immunoglobulin IGG 544 mg/dL (700-1600)
[2022-03-17 17:21] LABS: Immunoglobulin IGM 1145 mg/dL (40-230)
[2022-03-19 06:38] LABS: PROTEIN, TOTAL 6.5 g/dL (6.1-8.1)
[2022-03-21 15:07] LABS: ABNORMAL PROTEIN BAND 1 0.8 g/dL (NONE DETECTED); ALBUMIN 3.5 g/dL (3.8-4.8); ALPHA 1 GLOBULIN 0.3 g/dL (0.2-0.3); ALPHA 2 GLOBULIN 0.8 g/dL (0.5-0.9); BETA 1 GLOBULIN 0.4 g/dL (0.4-0.6); BETA 2 GLOBULIN 0.3 g/dL (0.2-0.5); GAMMA GLOBULIN 1.2 g/dL (0.8-1.7)
== END 2022-04-03 23:59 | disposition home or self-care (01) ==
PROVIDERS: PCP Physician Assistant; Visit Provider Internal Medicine Medical Oncology
DX: C88.0 Waldenstrom macroglobulinemia (principal); G62.9 Polyneuropathy, unspecified
CPT/HCPCS: 36415; 80053; 82784; 84155; 84165; 85007; 85025; 85651; 99214

== ENCOUNTER 2022-03-18 06:53 | Day surgery (SDC) | payer MEDICARE, MEDICAID, SELFPAY ==
[2022-03-16 15:15] VITALS: BMI 22.4
[2022-03-18 07:58] VITALS: BP 148/99; PULSE 94; RESP 16; TEMP 35.8; O2SAT 96
[2022-03-18] MEDS: sodium chloride 0.9% 1,000 ML 30 ML IV (08:02)
--- NOTE | 2022-03-18 08:37 | P.HP_ITS ---
Providers/Chief Complaint Primary Care Provider: Lucy Dean Chief Complaint: Dysphagia History of Present Illness Yulisa Kinney is a 61 year old female with dysphagia. Upper GI showed narrowing of the distal esophagus. Review of Systems General: Reports: 10 or more systems reviewed and unremarkable except in HPI and below Medications/Allergies Home Medications Medication Instructions Recorded Confirmed Last Taken Type ascorbic acid (vitamin C) 500 mg 500 mg PO BID 12/05/19 03/17/22 03/17/22 History tablet (Vitamin C) calcium carbonate 500 mg-vitamin See Rx Instructions .ROUTE .COMPLEX 12/05/19 03/17/22 03/17/22 History D3 5 mcg (200 unit) tablet (Calcium 500 + D) cyclobenzaprine 10 mg tablet See Rx Instructions .ROUTE .COMPLEX 12/05/19 03/17/22 03/17/22 History multivitamin 1 tab PO DAILY 12/05/19 03/17/22 03/17/22 History allopurinol 300 mg tablet 300 mg PO DAILY 02/26/20 03/17/22 03/17/22 History atorvastatin 20 mg tablet (Lipitor) 20 mg PO DAILY 02/26/20 03/17/22 03/17/22 History lorazepam 0.5 mg tablet 0.5 - 1 mg PO TID PRN 02/26/20 03/17/22 03/17/22 History prochlorperazine maleate 10 mg 10 mg PO Q4H PRN 02/26/20 03/17/22 02/25/20 History tablet ropinirole 0.25 mg tablet 0.25 - 0.5 mg PO BEDTIME 02/26/20 03/17/22 03/17/22 History docusate sodium 100 mg capsule 100 mg PO DAILY 05/13/20 03/17/22 03/17/22 History (Stool Softener) folic acid 1 mg tablet 1 mg PO DAILY 05/13/20 03/17/22 03/17/22 History loperamide 2 mg capsule 2 mg PO Q6H PRN 05/13/20 03/17/22 03/17/22 History pantoprazole 40 mg tablet,delayed 40 mg PO DAILY 05/13/20 03/17/22 03/17/22 History release thiamine HCl (vitamin B1) 100 mg 100 mg PO DAILY 05/13/20 03/17/22 03/17/22 History tablet trazodone 50 mg tablet 50 mg PO BEDTIME 05/13/20 03/17/22 03/17/22 History Seated walker #1 ea 01/27/21 03/17/22 03/17/22 Rx hydrochlorothiazide 12.5 mg capsule 12.5 mg PO DAILY 06/02/21 03/17/22 03/17/22 History gabapentin 300 mg capsule See Rx Instructions .ROUTE .COMPLEX 11/25/21 03/17/22 03/17/22 History sucralfate 1 gram tablet (Carafate) 1 g PO BID 11/25/21 03/17/22 03/17/22 History levothyroxine 25 mcg tablet 25 mcg PO QAM #30 tab 11/27/21 03/17/22 03/17/22 Rx tiotropium bromide 18 mcg capsule 1 cap INHALATION DAILY #30 inh 11/27/21 03/17/22 03/17/22 Rx with inhalation device (Spiriva with HandiHaler) fluticasone 250 mcg-salmeterol 50 1 inh INHALATION BID 01/13/22 03/17/22 03/17/22 History mcg/dose blistr powdr for inhalation (Scotty Inhles) metoprolol tartrate 25 mg tablet 50 mg PO BID #120 tab 02/03/22 03/17/22 03/18/22 06:30 Rx acetaminophen 300 mg-codeine 30 mg 1 tab PO Q4H PRN #30 tab 02/17/22 03/17/22 03/17/22 Rx tablet potassium chloride 20 mEq 20 meq PO DAILY #90 tab 02/28/22 03/17/22 03/17/22 Rx tablet,extended release Allergies Allergy/AdvReac Type Severity Reaction Status Date / Time hydrocortisone Allergy Severe Elevated Verified 03/17/22 15:18 [From Cortizone-10] heart rate hydromorphone [From Dilaudid] Allergy Severe Hallucinati Verified 03/17/22 15:18 ons meperidine [From Demerol] Allergy Severe Excessive Verified 03/17/22 15:18 vomitting morphine Allergy Severe Heart rate Verified 03/17/22 15:18 drops cortisone Allergy Unknown headache Verified 03/17/22 15:18 haloperidol [From Haldol] Allergy difficulty Verified 03/17/22 15:18 breathing PFSH Acute PFSH: Medical History Anxiety Carpal tunnel syndrome, bilateral upper limbs Cervical post-laminectomy syndrome Degenerative arthritis Fibromyalgia Hyperlipidemia Hypersomnolence Hypertension Hypertension Hypothyroidism IgM monoclonal gammopathy of uncertain significance Lumbar post-laminectomy syndrome Lumbar radiculopathy Peripheral neuropathy Restless leg syndrome Tear meniscus knee Waldenstrom macroglobulinemia Surgical History H/O section History of cervical spinal surgery [facility]: 02/14/2017 Posterolateral cervical fusion C2-C6 03/02/2016 C3-C4 ACDFF, removal of prior anterior cervical plate, C4-C5 2004 C4-C5 ACDFF All operative reports scanned to chart History of section, low transverse X2 History of esophagogastroduodenoscopy (EGD) History of facial surgery 1991 Following trauma, x3 History of lumbar surgery 2013, 2011 and 2010 [facility]: Lumbar fusion/fixation History of shoulder surgery Right x2 Hx of colonoscopy Family History Mother Lung disease Father Myocardial infarction Hypertension Diabetes Social History Smoking and tobacco status: former smoker Quit status (tobacco): has quit using tobacco Year quit tobacco: 2006 Former quit date comment: 1 ppd x 35 years Alcohol intake: current Alcohol intake frequency: few times a week Household members: significant other Marital status: Life Partner Current occupational status: disabled History of recent travel: No Vitals/I&O/Wt Last Vital Signs Temp 96.5 F L 03/18/22 07:58 Pulse 94 03/18/22 07:58 Resp 16 03/18/22 07:58 BP 148/99 03/18/22 07:58 Pulse Ox 96 03/18/22 07:58 Weight last 48 hrs Weight 111 lb Physical Exam Narrative: General : Patient is well developed , no acute distress, oriented x 3 Head : Normal cephalic, a-traumatic. Ears : Pinnae and external canal are normal. Hearing is normal. Eyes : PERRLA, Sclera and injection are normal. No conjunctival discharge. Nose : Mucous membranes are without erythema. Throat : buccal mucosa is normal, gums are without significant recession or hypertrophy. Lungs : Equal chest rise bilaterally, no use of accessory muscles, trachea is midline. Cor : Rate and rhythm are normal. Abdomen : Soft, ND, NT, no g/r/m Extremities : No edema, no cyanosis or clubbing, dorsalis pedis pulses are present bilaterally, non-tender to palpation of calves. Upper extremities are normal bilaterally. Back : non-tender to palpation, no CVA tenderness. Neuro : CN II - XII intact, Upper and lower extremities have equal and full strength A&P Assessment and plan (1) Dysphagia: Status: Acute Plan EGD with possible balloon dilation The risks and benefits of the procedure, including bleeding, infection, intestinal perforation requiring surgery, missed lesion, or explained to the patient. He is understanding of the risks and wishes to proceed. Attestations Medical Necessity Statement*: Patient will be discharged home Coding Level of Care Code Acute Zipper Setter for g Fwd Diagnoses Dysphagia R13.10
--- NOTE | 2022-03-18 09:10 | P.ANESASSM_ITS ---
Pre-Anesthetic Assessment Height/Weight: Height 1.5 m Weight 50.349 kg Temp Pulse Resp BP Pulse Ox 96.5 F L 94 16 148/99 96 03/18/22 07:58 03/18/22 07:58 03/18/22 07:58 03/18/22 07:58 03/18/22 07:58 Preop Diagnosis: Knee medial meniscal tear, right knee Operation Date: 03/18/22 08:45 Proposed Procedures p EGD Dilation W/ Balloon [id number],R13.10(Not Applicable) - Filiberto Acevedo DO Familial anesthetic complications: none Was Beta Emilie taken within 24 hours: N/A Was Clonidine taken within 24 hours: N/A Last intake: Intake Last Liquid Date 03/17/22 Last Liquid Time 22:00 Last Solid Date 03/17/22 Last Solid Time 22:00 Social No alcohol and No tobacco Exam alert, oriented x 3, clear to auscultation bilaterally and regular rate & rhythm Airway Submandibular: within normal limits Cervical ROM: Other (Limited ) Mallampati: Class II Comments: Comments: upper dentures Pulmonary Chronic Obstructive Pulmonary Disease Hx of recurrent aspiration pneumonia CV/HEM Hypertension Unable to ambulate well d/t leg pain IgM monoclonal gammopathy Lumbar radiculopathy Waldenstrom maroglobulinemia None reported Hepatic None reported GI Gastroesophageal Reflux Disease Hx dysphagia with esophageal Metabolic None reported Musc/skel Fibromyalgia, Lower Back Pain and Osteoarthritis/DJD Cervical post-laminectomy Hx of toxic encephalopathy Menicus tear Neuropsych Anxiety, Depression and Neuropathy RLS Concussion Anesthetic Plan ASA status: 3 Anesthesia: Anesthesia Evaluation and MAC Other: I discussed with the patient risks, goals, and benefits of MAC and general anesthesia. We discussed spectrum of MAC anesthesia including conversion to general as well as possibility of recall of intraoperative stimuli including discomfort/pain. Patient agrees to proceed with MAC. Risk of > 500 ml blood loss (7ml/kg in children): No Medications/Allergies Home Medications Medication Instructions Recorded Confirmed Last Taken Type ascorbic acid (vitamin C) 500 mg 500 mg PO BID 12/05/19 03/17/22 03/17/22 Histor y tablet (Vitamin C) calcium carbonate 500 mg-vitamin See Rx Instructions .ROUTE .COMPLEX 12/05/19 03/17/22 03/17/22 History D3 5 mcg (200 unit) tablet (Calcium 500 + D) cyclobenzaprine 10 mg tablet See Rx Instructions .ROUTE .COMPLEX 12/05/19 03/17/22 03/17/22 History multivitamin 1 tab PO DAILY 12/05/19 03/17/22 03/17/22 History allopurinol 300 mg tablet 300 mg PO DAILY 02/26/20 03/17/22 03/17/22 History atorvastatin 20 mg tablet (Lipitor) 20 mg PO DAILY 02/26/20 03/17/22 03/17/22 History lorazepam 0.5 mg tablet 0.5 - 1 mg PO TID PRN 02/26/20 03/17/22 03/17/22 History prochlorperazine maleate 10 mg 10 mg PO Q4H PRN 02/26/20 03/17/22 02/25/20 History tablet ropinirole 0.25 mg tablet 0.25 - 0.5 mg PO BEDTIME 02/26/20 03/17/22 03/17/22 History docusate sodium 100 mg capsule 100 mg PO DAILY 05/13/20 03/17/22 03/17/22 History (Stool Softener) folic acid 1 mg tablet 1 mg PO DAILY 05/13/20 03/17/22 03/17/22 History loperamide 2 mg capsule 2 mg PO Q6H PRN 05/13/20 03/17/22 03/17/22 History pantoprazole 40 mg tablet,delayed 40 mg PO DAILY 05/13/20 03/17/22 03/17/22 History release thiamine HCl (vitamin B1) 100 mg 100 mg PO DAILY 05/13/20 03/17/22 03/17/22 History tablet trazodone 50 mg tablet 50 mg PO BEDTIME 05/13/20 03/17/22 03/17/22 History Seated walker #1 ea 01/27/21 03/17/22 03/17/22 Rx hydrochlorothiazide 12.5 mg capsule 12.5 mg PO DAILY 06/02/21 03/17/22 03/17/22 History gabapentin 300 mg capsule See Rx Instructions .ROUTE .COMPLEX 11/25/21 03/17/22 03/17/22 History sucralfate 1 gram tablet (Carafate) 1 g PO BID 11/25/21 03/17/22 03/17/22 History levothyroxine 25 mcg tablet 25 mcg PO QAM #30 tab 11/27/21 03/17/22 03/17/22 Rx tiotropium bromide 18 mcg capsule 1 cap INHALATION DAILY #30 inh 11/27/21 03/17/22 03/17/22 Rx with inhalation device (Spiriva with HandiHaler) fluticasone 250 mcg-salmeterol 50 1 inh INHALATION BID 01/13/22 03/17/22 03/17/22 History mcg/dose blistr powdr for inhalation (Scotty Inhub) metoprolol tartrate 25 mg tablet 50 mg PO BID #120 tab 02/03/22 03/17/22 03/18/22 06:30 Rx acetaminophen 300 mg-codeine 30 mg 1 tab PO Q4H PRN #30 tab 02/17/22 03/17/22 03/17/22 Rx tablet potassium chloride 20 mEq 20 meq PO DAILY #90 tab 02/28/22 03/17/22 03/17/22 Rx tablet,extended release Allergies Allergy/AdvReac Type Severity Reaction Status Date / Time hydrocortisone Allergy Severe Elevated Verified 03/17/22 15:18 [From Cortizone-10] heart rate hydromorphone [From Dilaudid] Allergy Severe Hallucinati Verified 03/17/22 15:18 ons meperidine [From Demerol] Allergy Severe Excessive Verified 03/17/22 15:18 vomitting morphine Allergy Severe Heart rate Verified 03/17/22 15:18 drops cortisone Allergy Unknown headache Verified 03/17/22 15:18 haloperidol [From Haldol] Allergy difficulty Verified 03/17/22 15:18 breathing Current Medications Generic Name Dose Route Start Last Admin Trade Name Freq PRN Reason Stop Dose Admin Sodium Chloride 1,000 mls @ 30 mls/hr 03/18/22 08:00 03/18/22 08:02 Sodium Chloride 0.9% IV 03/19/22 07:59 30 mls/hr .Q24H ESTUARDO Administration PFSH Anesthesia Medical History Anxiety Carpal tunnel syndrome, bilateral upper limbs Cervical post-laminectomy syndrome Degenerative arthritis Fibromyalgia Hyperlipidemia Hypersomnolence Hypertension Hypertension Hypothyroidism IgM monoclonal gammopathy of uncertain significance Lumbar post-laminectomy syndrome Lumbar radiculopathy Peripheral neuropathy Restless leg syndrome Tear meniscus knee Waldenstrom macroglobulinemia Surgical History H/O section History of cervical spinal surgery [facility]: 02/14/2017 Posterolateral cervical fusion C2-C6 03/02/2016 C3-C4 ACDFF, removal of prior anterior cervical plate, C4-C5 2004 C4-C5 ACDFF All operative reports scanned to chart History of section, low transverse X2 History of esophagogastroduodenoscopy (EGD) History of facial surgery 1991 Following trauma, x3 History of lumbar surgery 2013, 2011 and 2010 [facility]: Lumbar fusion/fixation History of shoulder surgery Right x2 Hx of colonoscopy Family History Mother Lung disease Father Myocardial infarction Hypertension Diabetes Social History Smoking and tobacco status: former smoker Quit status (tobacco): has quit using tobacco Year quit tobacco: 2006 Former quit date comment: 1 ppd x 35 years Alcohol intake: current Alcohol intake frequency: few times a week Household members: significant other Marital status: Life Partner Current occupational status: disabled History of recent travel: No Data Anesthesia Cardiac Studies: No Data to Display
[2022-03-18 09:39] VITALS: BP 121/70; PULSE 80; RESP 16; TEMP 36.3; O2SAT 98
[2022-03-18 09:44] VITALS: BP 119/74; PULSE 80; RESP 18; O2SAT 100
[2022-03-18 09:54] VITALS: BP 124/76; PULSE 83; RESP 18; O2SAT 95
--- NOTE | 2022-03-18 10:08 | PC.NURSE ---
glasses and dentures returned to patient
== END 2022-03-18 10:15 | disposition home or self-care (01) ==
PROVIDERS: PCP Physician Assistant; Visit Provider Surgery
DX: R13.10 Dysphagia, unspecified (principal); F41.9 Anxiety disorder, unspecified; M79.7 Fibromyalgia; E78.5 Hyperlipidemia, unspecified; I10 Essential (primary) hypertension; E03.9 Hypothyroidism, unspecified; Z87.891 Personal history of nicotine dependence; K29.50 Unspecified chronic gastritis without bleeding; B96.81 Helicobacter pylori [H. pylori] as the cause of diseases classified elsewhere; J44.9 Chronic obstructive pulmonary disease, unspecified
CPT/HCPCS: 43239; 88305; J2704; J7030

== ENCOUNTER → 2022-03-31 15:51 | Outpatient (BNVA) | payer MEDICARE, MEDICAID, SELFPAY | PROVIDERS: PCP Physician Assistant; Visit Provider Surgery | DX: K29.70 Gastritis, unspecified, without bleeding (principal); B96.81 Helicobacter pylori [H. pylori] as the cause of diseases classified elsewhere; Z09 Encounter for follow-up examination after completed treatment for conditions other than malignant neoplasm | CPT/HCPCS: 99212 ==

== ENCOUNTER 2022-07-04 14:11 | Oncology outpatient (recurring) (ONCR) | payer MEDICARE, MEDICAID, SELFPAY ==
[2022-07-04 15:29] LABS: Basophils # 0.1 10^3/uL (0.0-0.1); Basophils % 1.1 %; Eosinophils # 0.1 10^3/uL (0.0-0.8); Eosinophils % 1.6 %; Hematocrit 36.5 % (37.0-47.0); Hemoglobin 12.2 g/dL (11.5-15.3); Lymphocytes # 1.8 10^3/uL (0.8-4.8); Mean Corpuscular HGB Conc 33.4 g/dL (30.0-36.0); Mean Corpuscular Hemoglobin 29.8 pg (28.0-34.0); Mean Platelet Volume 10.1 fL (7.4-10.4); Monocytes # 1.2 10^3/uL (0.2-0.9); Monocytes % 21.8 %; Neutrophils # 2.42 10^3/uL (1.8-7.7); Neutrophils % 43.3 %; Nucleated Red Blood Cells % 0 %; Platelet Count 227 10^3/cmm (130-400); Red Cell Distribution Width 13.1 % (12.1-15.1); White Blood Count 5.6 10^3/uL (4.0-10.0)
[2022-07-04 15:36] LABS: Erythrocyte Sedimentation Rate < 1 mm/hr (0-15)
[2022-07-04 15:47] LABS: Alanine Aminotransferase 20 U/L (0-33); Alkaline Phosphatase 73 U/L (35-105); Anion Gap 13.8 (5-19); Aspartate Amino Transferase 36 U/L (0-32); Blood Urea Nitrogen 10 mg/dL (8-23); Calcium 9.6 mg/dL (8.5-10.5); Carbon Dioxide 26 mmol/L (22-29); Chloride 96 mmol/L (98-107); Globulin 3.2 g/dL (1.3-4.6); Glomerular Filtration Rate 85.4 mL/min (90-130); Glucose 101 mg/dL (65-115); Lactate Dehydrogenase 162 U/L (135-214); Osmolality Calculated 273 mOsm/kg (285-295); Potassium 3.8 mmol/L (3.5-5.1); Sodium 132 mmol/L (136-145); Total Bilirubin 0.4 mg/dL (0.15-1.2); Total Protein 7.2 g/dL (6.6-8.7)
[2022-07-04 17:21] LABS: Immunoglobulin IGM 1364 mg/dL (40-230)
[2022-07-05 11:48] LABS: PROTEIN, TOTAL 6.8 g/dL (6.1-8.1)
[2022-07-05 15:18] LABS: ALBUMIN 3.8 g/dL (3.8-4.8); ALPHA 1 GLOBULIN 0.3 g/dL (0.2-0.3); ALPHA 2 GLOBULIN 0.7 g/dL (0.5-0.9); BETA 1 GLOBULIN 0.4 g/dL (0.4-0.6); BETA 2 GLOBULIN 0.3 g/dL (0.2-0.5); GAMMA GLOBULIN 1.4 g/dL (0.8-1.7)
== END 2022-07-04 23:59 | disposition home or self-care (01) ==
LOC: ONCMED 14:11
PROVIDERS: PCP Physician Assistant; Visit Provider Internal Medicine Medical Oncology
DX: C88.0 Waldenstrom macroglobulinemia (principal); Z79.899 Other long term (current) drug therapy; Z87.891 Personal history of nicotine dependence; R14.0 Abdominal distension (gaseous)
CPT/HCPCS: 80053; 82784; 83615; 84155; 84165; 85025; 85651; 99214

== ENCOUNTER 2022-10-19 13:09 | Oncology outpatient (recurring) (ONCR) | payer MEDICARE, MEDICAID, SELFPAY ==
[2022-10-19 13:59] LABS: Basophils # 0.1 10^3/uL (0.0-0.1); Basophils % 0.8 %; Eosinophils # 0.1 10^3/uL (0.0-0.8); Eosinophils % 2.2 %; Hematocrit 37.4 % (37.0-47.0); Hemoglobin 12.3 g/dL (11.5-15.3); Lymphocytes # 2.2 10^3/uL (0.8-4.8); Lymphocytes % 35.3 %; Mean Corpuscular HGB Conc 32.9 g/dL (30.0-36.0); Mean Corpuscular Hemoglobin 30.4 pg (28.0-34.0); Mean Corpuscular Volume 92.3 fl (81-99); Mean Platelet Volume 9.4 fL (7.4-10.4); Monocytes # 1.2 10^3/uL (0.2-0.9); Monocytes % 19.3 %; Neutrophils # 2.65 10^3/uL (1.8-7.7); Neutrophils % 42.1 %; Nucleated Red Blood Cells % 0 %; Platelet Count 241 10^3/cmm (130-400); Red Blood Count 4.05 10^6/uL (4.1-5.3); Red Cell Distribution Width 13.3 % (12.1-15.1); White Blood Count 6.3 10^3/uL (4.0-10.0)
[2022-10-19 14:06] LABS: Erythrocyte Sedimentation Rate < 1 mm/hr (0-15)
[2022-10-19 14:30] LABS: Alanine Aminotransferase 19 U/L (0-33); Albumin Level 4.3 g/dL (3.5-5.2); Alkaline Phosphatase 71 U/L (35-105); Anion Gap 18.3 (5-19); Aspartate Amino Transferase 39 U/L (0-32); Blood Urea Nitrogen 9 mg/dL (8-23); Calcium 9.5 mg/dL (8.5-10.5); Carbon Dioxide 25 mmol/L (22-29); Chloride 97 mmol/L (98-107); Free T4 Free Thyroxine 1.34 ng/dL (0.82-1.77); Globulin 3.2 g/dL (1.3-4.6); Glomerular Filtration Rate 72.9 mL/min (90-130); Glucose 99 mg/dL (65-115); Lactate Dehydrogenase 169 U/L (135-214); Osmolality Calculated 281 mOsm/kg (285-295); Potassium 4.3 mmol/L (3.5-5.1); Sodium 136 mmol/L (136-145); Thyroid Stimulating Hormone 2.86 uIU/mL (0.27-4.20); Total Bilirubin 0.4 mg/dL (0.15-1.2); Total Protein 7.5 g/dL (6.6-8.7)
[2022-10-19 15:00] LABS: Slide Review Slide Review Perform
[2022-10-20 11:45] LABS: PROTEIN, TOTAL 7.2 g/dL (6.1-8.1)
[2022-10-20 15:05] LABS: ABNORMAL PROTEIN BAND 1 1.3 g/dL (NONE DETECTED); ALBUMIN 3.8 g/dL (3.8-4.8); ALPHA 1 GLOBULIN 0.3 g/dL (0.2-0.3); ALPHA 2 GLOBULIN 0.7 g/dL (0.5-0.9); BETA 1 GLOBULIN 0.4 g/dL (0.4-0.6); BETA 2 GLOBULIN 0.3 g/dL (0.2-0.5); GAMMA GLOBULIN 1.7 g/dL (0.8-1.7)
== END 2022-11-01 23:59 | disposition home or self-care (01) ==
PROVIDERS: PCP Physician Assistant; Visit Provider Internal Medicine Medical Oncology
DX: C88.0 Waldenstrom macroglobulinemia (principal); D47.2 Monoclonal gammopathy; G62.89 Other specified polyneuropathies; R53.1 Weakness; R53.83 Other fatigue; R06.02 Shortness of breath; R42 Dizziness and giddiness; R10.84 Generalized abdominal pain; D72.829 Elevated white blood cell count, unspecified; Z79.899 Other long term (current) drug therapy; Z87.891 Personal history of nicotine dependence
CPT/HCPCS: 36415; 80053; 83615; 84155; 84165; 84439; 84443; 85025; 85651; 99214

== ENCOUNTER 2022-10-28 09:46 | Outpatient (CLI) | payer MEDICARE, MEDICAID, SELFPAY ==
--- NOTE | 2022-10-28 09:57 | MM_ITS ---
WS: [id number] BILATERAL SCREENING DIGITAL TOMOSYNTHESIS MAMMOGRAM WITH CAD HISTORY: SCREENING COMPARISON: 10/20/2021, 08/12/2020 Bilateral CC and MLO views with tomosynthesis and synthetic mammography submitted. Computer aided det ection analyzed. Breast composition: There are scattered areas of fibroglandular density. No suspicious masses, microc alcifications or architectural distortion. MM/[place] [id number] IMPRESSION: BI-RADS: 1-Negative FOLLOW UP: 1 Year Follow-up
== END 2022-10-28 09:47 | disposition home or self-care (01) ==
PROVIDERS: PCP Physician Assistant; Visit Provider Physician Assistant
DX: Z12.31 Encounter for screening mammogram for malignant neoplasm of breast (principal)
CPT/HCPCS: 77063; 77067

== ENCOUNTER 2022-11-11 09:52 | Outpatient (CLI) | payer MEDICARE, MEDICAID, SELFPAY ==
[2022-11-11] MEDS: iohexol 350 mg/mL 500 mL Btl (per mL) PO (10:05)
[2022-11-11] MEDS: iohexol 350 mg/mL 500 mL Btl (per mL) IV (10:05)
--- NOTE | 2022-11-11 12:00 | CT_ITS ---
WS: [id number] CT CHEST, ABDOMEN AND PELVIS WITH CONTRAST. HISTORY: Follow-up lymphoma, leukemia. TECHNIQUE: Contiguous 5 mm axial imaging performed through the chest, abdomen and pelvis with IV cont rast, oral contrast has been provided. Coronal and sagittal reformats chest. Coronal and sagittal ref ormats through the abdomen and pelvis. All CT scans at [facility] use at least one of these d ose optimization techniques: automated exposure control; mA and/or kV adjustment per patient size (in cludes targeted exams where dose is matched to clinical indication); or iterative reconstruction. CONTRAST: Omnipaque 350; 100 mL IV. DLP: 496.41 mGy.cm COMPARISON: 12/09/[address]: Moderate chronic emphysema and pulmonary hyperexpansion. Previously described new pulmonary nodule in the RIGHT lower lobe abutting the pleura has resolved. No new mass or pneumonia. Normal si ze aorta with moderate calcified plaque. Normal size pulmonary artery. No pericardial or pleural effu pat. Small hiatal hernia. No mediastinal or hilar adenopathy. Abdomen CT: Mildly elongated RIGHT lobe of the liver. No mass or nodule. Normal portal vein. Mildly c ontracted gallbladder. Normal size spleen. Mild pancreatic atrophy. No adrenal mass. Kidneys are norm al size. Nonobstructing 3 mm calcification LEFT kidney. There are a few small bilateral cortical hypo densities which are too small to characterize. No solid mass or obstruction. Moderate atherosclerotic plaque aorta. Focal plaque at the origins of the SMA and celiac axis. No ascites. Normal appearance of the stomach. No small bowel obstruction. No colonic wall thickening. Normal appe ndix. No mesenteric or retroperitoneal adenopathy of any significance. Pelvic CT: No free fluid. Mildly atrophic uterus. Urinary bladder is minimally distended. L4 anterolisthesis by 9 mm. Posterior lumbar fusion at L4-5. No interval change. CT/CT chest abdpel w/*[id number] IMPRESSION: 1. No significant lymphadenopathy throughout the chest, abdomen or pelvis. 2. Previously described new pulmonary nodule in the posterior RIGHT lower lobe has resolved. No new pulmonary nodule or mass. 3. No ascites. Normal size spleen.
== END 2022-11-11 09:53 | disposition home or self-care (01) ==
LOC: RAD 09:56
PROVIDERS: PCP Physician Assistant; Visit Provider Internal Medicine Medical Oncology
DX: C88.0 Waldenstrom macroglobulinemia (principal); C85.90 Non-Hodgkin lymphoma, unspecified, unspecified site; C95.90 Leukemia, unspecified not having achieved remission
CPT/HCPCS: 71260; 74177; Q9967

== ENCOUNTER 2022-12-08 10:10 | Oncology outpatient (recurring) (ONCR) | payer MEDICARE, MEDICAID, SELFPAY ==
[2022-12-08 10:48] LABS: Basophils # 0.1 10^3/uL (0.0-0.1); Basophils % 0.8 %; Eosinophils # 0.1 10^3/uL (0.0-0.8); Eosinophils % 2.3 %; Hematocrit 35.4 % (37.0-47.0); Hemoglobin 11.9 g/dL (11.5-15.3); Lymphocytes # 2.1 10^3/uL (0.8-4.8); Mean Corpuscular HGB Conc 33.6 g/dL (30.0-36.0); Mean Corpuscular Hemoglobin 30.3 pg (28.0-34.0); Mean Corpuscular Volume 90.1 fl (81-99); Mean Platelet Volume 9.2 fL (7.4-10.4); Monocytes # 1.3 10^3/uL (0.2-0.9); Monocytes % 20.7 %; Neutrophils # 2.48 10^3/uL (1.8-7.7); Neutrophils % 40.9 %; Nucleated Red Blood Cells % 0 %; Platelet Count 216 10^3/cmm (130-400); Red Blood Count 3.93 10^6/uL (4.1-5.3); Red Cell Distribution Width 12.5 % (12.1-15.1); White Blood Count 6.1 10^3/uL (4.0-10.0)
[2022-12-08 10:55] LABS: Erythrocyte Sedimentation Rate < 1 mm/hr (0-15)
[2022-12-08 11:04] LABS: Slide Review Slide Review Perform
[2022-12-08 11:12] LABS: Alanine Aminotransferase 23 U/L (0-33); Albumin Level 4.2 g/dL (3.5-5.2); Alkaline Phosphatase 71 U/L (35-105); Anion Gap 15.6 (5-19); Aspartate Amino Transferase 41 U/L (0-32); Blood Urea Nitrogen 9 mg/dL (8-23); Calcium 9.7 mg/dL (8.5-10.5); Carbon Dioxide 25 mmol/L (22-29); Chloride 92 mmol/L (98-107); Globulin 3.5 g/dL (1.3-4.6); Glomerular Filtration Rate 85.1 mL/min (90-130); Glucose 91 mg/dL (65-115); Lactate Dehydrogenase 212 U/L (135-214); Osmolality Calculated 264 mOsm/kg (285-295); Potassium 4.6 mmol/L (3.5-5.1); Sodium 128 mmol/L (136-145); Total Bilirubin 0.7 mg/dL (0.15-1.2); Total Protein 7.7 g/dL (6.6-8.7)
[2022-12-09 12:29] LABS: PROTEIN, TOTAL 7.3 g/dL (6.1-8.1)
[2022-12-09 15:46] LABS: ABNORMAL PROTEIN BAND 1 1.1 g/dL (NONE DETECTED); ALBUMIN 4.2 g/dL (3.8-4.8); ALPHA 1 GLOBULIN 0.3 g/dL (0.2-0.3); ALPHA 2 GLOBULIN 0.7 g/dL (0.5-0.9); BETA 1 GLOBULIN 0.4 g/dL (0.4-0.6); BETA 2 GLOBULIN 0.2 g/dL (0.2-0.5); GAMMA GLOBULIN 1.5 g/dL (0.8-1.7)
== END 2023-01-01 23:59 | disposition home or self-care (01) ==
PROVIDERS: PCP Physician Assistant; Visit Provider Internal Medicine Medical Oncology
DX: C88.0 Waldenstrom macroglobulinemia (principal); D47.2 Monoclonal gammopathy; G62.89 Other specified polyneuropathies; R74.8 Abnormal levels of other serum enzymes; Z79.899 Other long term (current) drug therapy; Z87.891 Personal history of nicotine dependence; Z92.25 Personal history of immunosuppression therapy
CPT/HCPCS: 80053; 83615; 84155; 84165; 85025; 85651; 86334; 99214

== ENCOUNTER 2023-03-13 12:28 | Oncology outpatient (recurring) (ONCR) | payer MEDICARE, MEDICAID, SELFPAY ==
[2023-03-13 12:34] VITALS: BP 122/74; PULSE 99; RESP 18; TEMP 36.5; O2SAT 92
[2023-03-13 12:55] LABS: Basophils # 0.1 10^3/uL (0.0-0.1); Basophils % 0.9 %; Eosinophils # 0.1 10^3/uL (0.0-0.8); Eosinophils % 1.6 %; Hematocrit 33.6 % (37.0-47.0); Hemoglobin 11.2 g/dL (11.5-15.3); Lymphocytes # 1.7 10^3/uL (0.8-4.8); Lymphocytes % 31.2 %; Mean Corpuscular HGB Conc 33.3 g/dL (30.0-36.0); Mean Corpuscular Hemoglobin 30.8 pg (28.0-34.0); Mean Corpuscular Volume 92.3 fl (81-99); Monocytes # 1.1 10^3/uL (0.2-0.9); Monocytes % 20.6 %; Neutrophils # 2.51 10^3/uL (1.8-7.7); Neutrophils % 45.3 %; Nucleated Red Blood Cells % 0 %; Platelet Count 205 10^3/cmm (130-400); Red Blood Count 3.64 10^6/uL (4.1-5.3); Red Cell Distribution Width 12.9 % (12.1-15.1); White Blood Count 5.5 10^3/uL (4.0-10.0)
[2023-03-13 13:14] LABS: Slide Review Slide Review Perform
[2023-03-13 13:18] LABS: Alanine Aminotransferase 27 U/L (0-33); Alkaline Phosphatase 68 U/L (35-105); Anion Gap 11.7 (5-19); Aspartate Amino Transferase 47 U/L (0-32); Blood Urea Nitrogen 10 mg/dL (8-23); Calcium 9.3 mg/dL (8.5-10.5); Carbon Dioxide 28 mmol/L (22-29); Chloride 90 mmol/L (98-107); Globulin 3.4 g/dL (1.3-4.6); Glomerular Filtration Rate 85.1 mL/min (90-130); Glucose 92 mg/dL (65-115); Lactate Dehydrogenase 182 U/L (135-214); Osmolality Calculated 261 mOsm/kg (285-295); Potassium 3.7 mmol/L (3.5-5.1); Sodium 126 mmol/L (136-145); Total Bilirubin 0.3 mg/dL (0.15-1.2); Total Protein 7.4 g/dL (6.6-8.7)
[2023-03-13 15:24] LABS: Ferritin 84 ng/mL (15-150); Iron 58 ug/dL (37-145); Percent Saturation 21.9 % (20-50); Total Iron Binding Capacity 264 mcg/dl; Unsaturated Iron Binding 206 ug/dL (112-347)
[2023-03-14 08:20] LABS: PROTEIN, TOTAL 7.4 g/dL (6.1-8.1)
[2023-03-14 12:29] LABS: ABNORMAL PROTEIN BAND 1 1.4 g/dL (NONE DETECTED); ALPHA 1 GLOBULIN 0.3 g/dL (0.2-0.3); ALPHA 2 GLOBULIN 0.7 g/dL (0.5-0.9); BETA 1 GLOBULIN 0.4 g/dL (0.4-0.6); BETA 2 GLOBULIN 0.2 g/dL (0.2-0.5); GAMMA GLOBULIN 1.8 g/dL (0.8-1.7)
== END 2023-04-03 23:59 | disposition home or self-care (01) ==
PROVIDERS: Nurse Practitioner Family; PCP Physician Assistant; Visit Provider Internal Medicine Medical Oncology
DX: C88.0 Waldenstrom macroglobulinemia (principal); D47.2 Monoclonal gammopathy; G62.89 Other specified polyneuropathies; R74.8 Abnormal levels of other serum enzymes; Z79.899 Other long term (current) drug therapy; Z87.891 Personal history of nicotine dependence; Z92.25 Personal history of immunosuppression therapy; D64.9 Anemia, unspecified
CPT/HCPCS: 36415; 80053; 82728; 83540; 83550; 83615; 84155; 84165; 85025; 99214

== ENCOUNTER 2023-06-20 12:29 | Oncology outpatient (recurring) (ONCR) | payer MEDICARE, MEDICAID, SELFPAY ==
[2023-06-20 12:32] VITALS: BP 106/70; PULSE 90; RESP 16; TEMP 37; O2SAT 95
[2023-06-20 12:55] LABS: Basophils # 0.1 10^3/uL (0.0-0.1); Basophils % 0.9 %; Eosinophils # 0.1 10^3/uL (0.0-0.8); Eosinophils % 1.9 %; Hematocrit 34.3 % (36-47); Lymphocytes # 2.3 10^3/uL (0.8-4.8); Lymphocytes % 38.8 %; Mean Corpuscular HGB Conc 32.1 g/dL (30-55); Mean Corpuscular Hemoglobin 31.1 pg (27-33); Mean Corpuscular Volume 96.9 fl (85-98); Mean Platelet Volume 9.3 fL (7.4-10.4); Monocytes # 1.1 10^3/uL (0.2-0.9); Monocytes % 18.4 %; Neutrophils # 2.29 10^3/uL (1.8-7.7); Neutrophils % 39.3 %; Nucleated Red Blood Cells % 0 %; Platelet Count 168 10^3/cmm (157-399); Red Blood Count 3.54 10^6/uL (3.85-5.65); White Blood Count 5.82 10^3/uL (3.29-11.43)
[2023-06-20 13:15] LABS: Alanine Aminotransferase 18 U/L (0-33); Albumin Level 4.1 g/dL (3.5-5.2); Alkaline Phosphatase 79 U/L (35-105); Anion Gap 14.5 (5-19); Aspartate Amino Transferase 40 U/L (0-32); Blood Urea Nitrogen 8 mg/dL (8-23); Calcium 9.2 mg/dL (8.5-10.5); Carbon Dioxide 26 mmol/L (22-29); Chloride 101 mmol/L (98-107); Glomerular Filtration Rate 72.9 mL/min (90-130); Glucose 121 mg/dL (65-115); Lactate Dehydrogenase 213 U/L (135-214); Osmolality Calculated 284 mOsm/kg (285-295); Potassium 4.5 mmol/L (3.5-5.1); Sodium 137 mmol/L (136-145); Total Bilirubin 0.3 mg/dL (0.15-1.2); Total Protein 8.1 g/dL (6.6-8.7)
[2023-06-20 13:20] LABS: Slide Review Slide Review Perform
[2023-06-21 07:59] LABS: PROTEIN, TOTAL 7.8 g/dL (6.1-8.1)
[2023-06-21 17:49] LABS: ABNORMAL PROTEIN BAND 1 1.8 g/dL (NONE DETECTED); ALBUMIN 3.9 g/dL (3.8-4.8); ALPHA 1 GLOBULIN 0.3 g/dL (0.2-0.3); ALPHA 2 GLOBULIN 0.7 g/dL (0.5-0.9); BETA 1 GLOBULIN 0.4 g/dL (0.4-0.6); BETA 2 GLOBULIN 0.3 g/dL (0.2-0.5); GAMMA GLOBULIN 2.2 g/dL (0.8-1.7)
== END 2023-07-04 23:59 | disposition home or self-care (01) ==
PROVIDERS: Nurse Practitioner Family; PCP Physician Assistant; Visit Provider Internal Medicine Medical Oncology
DX: C88.0 Waldenstrom macroglobulinemia (principal); D72.820 Lymphocytosis (symptomatic); D64.9 Anemia, unspecified; D47.2 Monoclonal gammopathy; R06.02 Shortness of breath
CPT/HCPCS: 36415; 80053; 83615; 84155; 84165; 85025; 99214

== ENCOUNTER 2023-07-03 08:47 | Outpatient (CLI) | payer MEDICARE, MEDICAID, SELFPAY ==
--- NOTE | 2023-07-03 10:15 | USCV_ITS ---
Nirmal Yulisa Age: 62 Gender: F : 1960 Exam Date: 07/03/2023 10:39 Ordering Phys: Robin Solorzano MD Technologist: MARNIE Exam Location: [facility] [place] Indication: dizziness, sob BP: 106 / 69 HR: 91 Rhythm: Sinus Technical Quality: Adequate MEASUREMENTS (Male / Female) Normal Values 2D ECHO LV Diastolic Diameter PLAX 4.0 cm 4.2 - 5.9 / 3.9 - 5.3 cm LV Systolic Diameter PLAX 2.1 cm IVS Diastolic Thickness 1.1 cm 0.6 - 1.0 / 0.6 - 0.9 cm IVS Systolic Thickness 1.3 cm LVPW Diastolic Thickness 1.0 cm 0.6 - 1.0 / 0.6 - 0.9 cm LVPW Systolic Thickness 1.6 cm LVOT Diameter 2.0 cm LV Ejection Fraction 2D Teich 80.1 % LV Ejection Fraction MOD 2C 55.6 % LV Ejection Fraction 2C AL 55.4 % LA Diameter 2.5 cm LA Width 2.8 cm LA Height 2.9 cm RA Width 2.8 cm RA Height 3.5 cm Aorta at Sinotubular Diameter 2.6 cm IVC Diameter 0.8 cm M-MODE Aortic Annulus Diameter 2.7 cm LA Ao Ratio MM 1.1 MV E Point Septal Separation 0.3 cm DOPPLER AV Peak Velocity 92.0 cm/s LVOT Peak Velocity 75.0 cm/s AV Area Cont Eq vti 2.6 cm squared AV Area Cont Eq pk 2.6 cm squared MV Area PHT 5.0 cm squared Mitral E to A Ratio 3.3 MV E' Velocity 41.0 cm/s Mitral E to MV E' Ratio 8.4 Mitral E to LV E' Lateral Ratio 12.2 Mitral E to LV E' Septal Ratio 6.4 TR Peak Velocity 156.3 cm/s TR Peak Gradient 9.8 mmHg Right Atrial Pressure 5.0 mmHg Pulmonary Artery Systolic Pressu 14.8 mmHg PV Peak Velocity 89.0 cm/s RV Acceleration Time 0.1 s RV Ejection Time 0.3 s RV AcT/ET 0.5 FINDINGS Left Ventricle Left ventricle is normal in size. LV systolic function is normal with EF 55 to 60%. No regional wall motion abnormalities are seen. Right Ventricle Normal in size and fine function Right Atrium Normal in size Left Atrium Normal in size Mitral Valve Structurally normal mitral valve. Trace mitral regurgitation Aortic Valve Structurally normal aortic valve. No significant stenosis or regurgitation Tricuspid Valve Insufficient TR jet to calculate RVSP. Pulmonic Valve Not well visualized Pericardium Normal Aorta Normal in size IVC Appears to be normal CONCLUSIONS LV systolic function is normal with EF 55 to 60%. Trace mitral regurgitation. No comparison studies are available. Mikey Rangel MD (Electronically Signed) Final Date: 04 July 2023 07:28 S
== END 2023-07-03 08:48 | disposition home or self-care (01) ==
LOC: RAD 08:47
PROVIDERS: PCP Physician Assistant; Visit Provider Internal Medicine Medical Oncology
DX: R06.09 Other forms of dyspnea (principal); R42 Dizziness and giddiness; R06.02 Shortness of breath
CPT/HCPCS: 93306

== ENCOUNTER 2023-09-06 11:22 | Observation (INO) | payer MEDICARE, MEDICAID, SELFPAY ==
[2023-09-06] VITALS (63 sets, daily range): BP systolic 103–138; BP diastolic 71–86; PULSE 81–123; RESP 10–23; TEMP 36.4–36.7; O2SAT 84–99; BMI 23.4; BMI 24.4
--- NOTE | 2023-09-06 11:28 | CTR_ITS ---
PROCEDURE INFORMATION: Exam: CT Abdomen And Pelvis With Contrast Exam date and time: 09/06/2023 12:36 PM Age: 63 years old Clinical indication: Abdominal pain; Generalized; Prior surgery; Surgery date: 6+ months; Surgery type: Csection. Lumbar fusion; Patient HX: C/O abd pain with rectal bleeding. History of lymphoma and leukemia. TECHNIQUE: Imaging protocol: Computed tomography of the abdomen and pelvis with contrast. Contrast material: OMNI 350; Contrast volume: 100 ml; Contrast route: INTRAVENOUS (IV); COMPARISON: CT chest abdpel w/*[id number] 11/11/2022 11:51 AM RADIATION DOSE METRICS: Total DLP (mGy-cm): 333.31 FINDINGS: Lungs: No significant pathology at the imaged lung bases. Coronary arteries: Coronary artery calcifications. Mediastinal space: Mural thickening distal thoracic esophagus. Diaphragm: Small hiatal hernia. Liver: No significant liver pathology. Gallbladder and bile ducts: No significant gallbladder pathology. Common bile duct is dilated up to 9 mm with no discrete obstructing lesion visualized, also present on prior study. Pancreas: No significant pancreatic pathology. No pancreatic ductal dilatation. Spleen: Spleen is top limits of normal in size. Adrenal glands: No significant adrenal pathology. Kidneys and ureters: Mild bilateral renal cortical scarring. Left renal hilar calcification is most likely vascular. No urinary obstruction.Subcentimeter renal cortical hypodensities, indeterminate by criteria but statistically most likely representing cysts. Stomach and bowel: Interval appearance of marked mural thickening involving the sigmoid colon with lesser degree of mural thickening involving the descending colon which is not significantly changed. No dilated bowel. Appendix: No appendiceal pathology evident. Intraperitoneal space: Small amount of pelvic ascites with mild peritoneal thickening (series 4, image 63). No free air. Vasculature: No abdominal aortic aneurysm. Lymph nodes: Compared to the prior exam, there has been interval increase in size of retroperitoneal lymph nodes which remain within normal limits by size criteria. Example is a left periaortic node on series 4 image 24 currently measuring 9 mm short axis compared with 7 mm previously. Interval appearance of confluence nodes in the left periaortic region seen on series 4, image 28. Interval enlargement lymph node just posterior to the pancreas on series 4, image 19 measuring 9 mm compared with 7 mm previously. Interval increase in left inguinal lymph nodes which also remain within normal limits by size criteria but have rounded morphology measuring up to 8 mm. Urinary bladder: Unremarkable urinary bladder. Reproductive: No significant uterine pathology. No significant adnexal pathology. Bones/joints: Features of prior lumbar spine fusion again seen. Anterolisthesis of L4 on L5 again noted. Reverse listhesis of L1-L2 again seen. Degenerative change at L1-2 again noted. Soft tissues: Tiny fat containing umbilical hernia. CT/CT abdomen pelvis w con* [id number] IMPRESSION: 1. Interval appearance of marked mural thickening of the sigmoid colon and mild abdominal and left inguinal lymphadenopathy. Possible contributing factors include infectious/inflammatory pathology and atypical manifestation history of underlying hematogenous malignancy with other pathology including ischemic considered less likely. 2. Stable mild dilatation of the extrahepatic common duct with no obstructing lesion seen; MRCP or ERCP could be performed for further assessment if clinically warranted. 3. Minor findings as above.
[2023-09-06 11:57] LABS: Hematocrit 31.8 % (36-47); Mean Corpuscular HGB Conc 32.1 g/dL (30-55); Mean Corpuscular Hemoglobin 30.8 pg (27-33); Mean Corpuscular Volume 96.1 fl (85-98); Mean Platelet Volume 8.8 fL (7.4-10.4); Platelet Count 104 10^3/cmm (157-399); Red Blood Count 3.31 10^6/uL (3.85-5.65); Red Cell Distribution Width 14.2 % (12.1-15.1); White Blood Count 13.19 10^3/uL (3.29-11.43)
[2023-09-06 12:10] LABS: INR 0.96 (0.8-1.2); Partial Thromboplastin Time 25.6 SECONDS (23.9-36.7)
[2023-09-06 12:14] LABS: Alanine Aminotransferase 16 U/L (0-33); Albumin Level 3.6 g/dL (3.5-5.2); Alkaline Phosphatase 82 U/L (35-105); Anion Gap 14.8 (5-19); Aspartate Amino Transferase 38 U/L (0-32); Blood Urea Nitrogen 8 mg/dL (8-23); Calcium 9.3 mg/dL (8.5-10.5); Carbon Dioxide 25 mmol/L (22-29); Chloride 98 mmol/L (98-107); Globulin 4.6 g/dL (1.3-4.6); Glomerular Filtration Rate 72.7 mL/min (90-130); Glucose 100 mg/dL (65-115); Lipase 16 U/L (13-60); Osmolality Calculated 276 mOsm/kg (285-295); Potassium 3.8 mmol/L (3.5-5.1); Sodium 134 mmol/L (136-145); Total Bilirubin 0.5 mg/dL (0.15-1.2); Total Protein 8.2 g/dL (6.6-8.7)
[2023-09-06 12:29] LABS: Slide Review Slide Review Perform
[2023-09-06 12:30] LABS: Total Cells Counted 100 (0-100)
[2023-09-06 12:34] LABS: Absolute Neutrophil 3.7 10^3/cmm (1.4-6.5); Absolute Segmented Neutrophil 3.7 10/cmm (1.6-7.1); Eosinophils 0 %; Lymphocytes 55 %; Lymphocytes Absolute 9.1 10^3/cmm (1.2-3.4); Monocytes Absolute 0.4 10^3/cmm (0.1-0.6); Platelet Estimate Decreased (Normal); Segmented Neutrophils 28 %
[2023-09-06] MEDS: iohexol 350 mg/mL 500 mL Btl (per mL) IV (12:42)
--- NOTE | 2023-09-06 13:26 | ED_ITS ---
HPI - GI Bleed 2 General: Chief complaint: ER Hold Stated complaint: ABD PAIN WITH RECTAL BLEEDING Time Seen by Provider: 09/06/23 11:27 Source: patient Mode of arrival: EMS History of Present Illness: 61-year-old female presents emergency ro om with several days of bright red blood per rectum and left lower quadrant abdominal pain. No vomiting. She denies any fever sweats or chills. No recent antibiotics she has had loose stools associated with the blood as well. Denies chest pain or shortness of breath no dysuria urgency or frequency. Patient reports she had did have a colonoscopy several years ago that was unremarkable. MD complaint: gross hematochezia Onset (ago): day(s) Pain Consistency: constant Severity: moderate Relieving factors: none Exacerbating factors: none Associated symptoms: Reports poor appetite; Denies abdominal pain, chills, easy bruising, epistaxis, fever(s), headache(s), malaise, nausea, other bleeding, rash, syncope, vomiting or weakness Treatments Prior to Arrival: none Review of Systems 2 Const: Denies: fever(s), chills or malaise ENMT: Denies: epistaxis Card: Denies: chest pain or syncope Resp: Denies: dyspnea GI: Denies: abdominal pain, nausea or vomiting : Denies: dysuria, urinary frequency or urinary urgency Musc: Denies: neck pain or back pain Skin/Breast: Denies: rash Neuro: Denies: headache(s) Valdez/Lymph: Denies: easy bruising PFSH ED 2 PFSH: Medical History Helicobacter pylori gastritis Recurrent pneumonia Hypersomnolence Lumbar post-laminectomy syndrome Cervical post-laminectomy syndrome Peripheral neuropathy Hypothyroidism Restless leg syndrome Anxiety Degenerative arthritis Fibromyalgia Hyperlipidemia Hypertension Waldenstrom macroglobulinemia Lumbar radiculopathy Carpal tunnel syndrome, bilateral upper limbs Surgical History Hx of colonoscopy History of esophagogastroduodenoscopy (EGD) H/O section x 2 History of facial surgery 1991 Following trauma, x3 History of shoulder surgery Right rotator cuff repair x 2 History of cervical spinal surgery [facility]: 02/14/2017 Posterolateral cervical fusion C2-C6 03/02/2016 C3-C4 ACDFF, removal of prior anterior cervical plate, C4-C5 2003 C4-C5 ACDFF All operative reports scanned to chart History of lumbar surgery 2013, 2011 and 2010 [facility]: Lumbar fusion/fixation Family History Mother Lung disease Father Myocardial infarction Hypertension Diabetes Social History Smoking and tobacco/nicotine status: former use of tobacco/nicotine (quit 2006, smoked 30+ years) Quit status (tobacco/nicotine): has quit using Year quit tobacco: 2006 Former quit date comment: 1 ppd x 35 years Alcohol intake: current Alcohol intake frequency: few times a week Substance/Drug Use: never Household members: significant other Marital status: Life Partner Current occupational status: disabled Physical Exam 2 Const: COMMON NORMALS: no acute distress GENERAL APPEARANCE: cooperative and comfortable ORIENTATION/CONSCIOUSNESS: Yes awake, Yes oriented to person, Yes oriented to place and Yes oriented to time HENMT: COMMON NORMALS: normocephalic, atraumatic and hearing grossly normal bilaterally HEAD & SCALP: normocephalic and atraumatic Resp: COMMON NORMALS: normal respiratory effort, No retractions, No use of accessory muscles and clear to auscultation bilaterally AUSCULTATION: clear to auscultation bilaterally Cardio: COMMON NORMALS: regular rate, regular rhythm and No murmurs present (Cardio) RATE: regular rate RHYTHM: regular rhythm GI: COMMON NORMALS: Soft to palpation and No hepatosplenomegaly present A USCULTATION: Yes normoactive bowel sounds PALPATION: Yes Soft to palpation, No Tenderness to palpation present (GI), No Guarding due to palpation present (GI) and Yes No hepatosplenomegaly present Extremity: COMMON NORMALS: normal to inspection, capillary refill normal, no clubbing, cyanosis or edema, no calf tenderness and no pedal edema Neuro: SENSORIUM/ORIENTATION: Yes oriented to person, Yes oriented to place and Yes oriented to time Skin: COMMON NORMALS: no rashes or lesions noted GENERAL SKIN EXAM: no rashes or lesions noted Course 2 Vital Signs: Vital signs: Vital Signs Temperature 97.7 F 09/09/23 16:01 Pulse Rate 75 09/09/23 16:01 Respiratory Rate 18 09/09/23 16:01 Blood Pressure 104/65 09/09/23 16:01 Pulse Oximetry 95 09/09/23 16:01 Oxygen Delivery Me thod Room Air 09/09/23 11:37 MDM - GI Bleed Medical Decision Making Gross hematochezia. Hemoglobin down slightly CT shows colitis. Will admit monitor blood counts discussed with hospitalist will likely need repeat colonoscopy antibiotics initiated Medical Records I reviewed the patient's medical records. Lab Data I reviewed the patient's lab results. 09/09/23 05:21 09/09/23 05:21 Radiology Impressions Abdomen/Pelvis CT 09/06/23 11:28 IMPRESSION: 1. Interval appearance of marked mural thickening of the sigmoid colon and mild abdominal and left inguinal lymphadenopathy. Possible contributing factors include infectious/inflammatory pathology and atypical manifestation history of underlying hematogenous malignancy with other pathology including ischemic considered less likely. 2. Stable mild dilatation of the extrahepatic common duct with no obstructing lesion seen; MRCP or ERCP could be performed for further assessment if clinically warranted. 3. Minor findings as above. ADDENDUM: 09/06/23 1310 THIS REPORT CONTAINS FINDINGS THAT MAY BE CRITICAL TO PATIENT CARE. The findings were verbally communicated via telephone conference with MELANIA PHILLIPS at 1:08 PM LINUX SYSTEMS ANALYST on 09/06/2023. The findings were acknowledged and understood. Laboratory Results WBC 13.19 10^3/uL (3.29-11.43) H 09/06/23 11:45 RBC 3.31 10^6/uL (3.85-5.65) L 09/06/23 11:45 Hgb 10.20 g/dL (11.27-16.99) L 09/06/23 11:45 Hct 31.8 % (36-47) L 09/06/23 11:45 MCV 96.1 fl (85-98) 09/06/23 11:45 MCH 30.8 pg (27-33) 09/06/23 11:45 MCHC 32.1 g/dL (30-55) 09/06/23 11:45 RDW 14.2 % (12.1-15.1) 09/06/23 11:45 Plt Count 104 10^3/cmm (157-399) L 09/06/23 11:45 MPV 8.8 fL (7.4-10.4) 09/06/23 11:45 Lymph % (Auto) Not Reportable 09/06/23 11:45 Warrick % (Auto) Not Reportable 09/06/23 11:45 Lymph # (Auto) Not Reportable 09/06/23 11:45 Warrick # (Auto) Not Reportable 09/06/23 11:45 Total Counted 100 (0-100) 09/06/23 11:45 Atypical Lymphs % 14.0 % (0-5) H 09/06/23 11:45 Absolute Neutrophils 3.7 10^3/cmm (1.4-6.5) 09/06/23 11:45 Segmented Neutrophils 28 % 09/06/23 11:45 Abs Segm Neuts (Man) 3.7 10/cmm (1.6-7.1) 09/06/23 11:45 Band Neutrophils 0.0 % 09/06/23 11:45 Abs Band Neuts (Man) 0.0 10^3/cmm (0.0-1.2) 09/06/23 11:45 Absolute Lymphocytes 9.1 10^3/cmm (1.2-3.4) H 09/06/23 11:45 Lymphocytes (Manual) 55 % 09/06/23 11:45 Monocytes (Manual) 3.0 % 09/06/23 11:45 Absolute Monocytes 0.4 10^3/cmm (0.1-0.6) 09/06/23 11:45 Eosinophils (Manual) 0 % 09/06/23 11:45 Absolute Eosinophils 0.0 10^3/cmm (0.0-0.7) 09/06/23 11:45 Basophils (Manual) 0.0 % 09/06/23 11:45 Absolute Basophils 0.0 10^3/cmm (0.0-0.2) 09/06/23 11:45 Platelet Estimate Decreased (Normal) L 09/06/23 11:45 PT 13.10 SECONDS (12.1-14.9) 09/06/23 11:45 INR 0.96 (0.8-1.2) 09/06/23 11:45 APTT 25.6 SECONDS (23.9-36.7) 09/06/23 11:45 Sodium 134 mmol/L (136-145) L 09/06/23 11:45 Potassium 3.8 mmol/L (3.5-5.1) 09/06/23 11:45 Chloride 98 mmol/L (98-107) 09/06/23 11:45 Carbon Dioxide 25 mmol/L (22-29) 09/06/23 11:45 Anion Gap 14.8 (5-19) 09/06/23 11:45 BUN 8 mg/dL (8-23) 09/06/23 11:45 Creatinine 0.8 mg/dL (0.5-0.9) 09/06/23 11:45 GFR Calculation 72.7 mL/min (90-130) L 09/06/23 11:45 Glucose 100 mg/dL (65-115) 09/06/23 11:45 Calculated Osmolality 276 mOsm/kg (285-295) L 09/06/23 11:45 Calcium 9.3 mg/dL (8.5-10.5) 09/06/23 11:45 Iron 26 ug/dL (37-145) L 09/06/23 11:45 TIBC 255 mcg/dl 09/06/23 11:45 % Saturation 10.1 % (20-50) L 09/06/23 11:45 Unsat Iron Binding 229 ug/dL (112-347) 09/06/23 11:45 Ferritin 121 ng/mL (15-150) 09/06/23 11:45 Total Bilirubin 0.5 mg/dL (0.15-1.2) 09/06/23 11:45 AST 38 U/L (0-32) H 09/06/23 11:45 ALT 16 U/L (0-33) 09/06/23 11:45 Alkaline Phosphatase 82 U/L (35-105) 09/06/23 11:45 Total Protein 8.2 g/dL (6.6-8.7) 09/06/23 11:45 Albumin 3.6 g/dL (3.5-5.2) 09/06/23 11:45 Globulin 4.6 g/dL (1.3-4.6) 09/06/23 11:45 Lipase 16 U/L (13-60) 09/06/23 11:45 All radiology interpretation(s) finalized by discharge Discharge Plan Discharge Patient Disposition: Admitted As Inpatient Admit Provider: Michael Thibodeaux Clinical Impression: Lower gastrointestinal hemorrhage, Anemia, Colitis Condition: Stable Coding Level of Care Code ED Manager Heart Failure for Luis Walden
[2023-09-06 14:37] LABS: Add Urine Microscopic? NO; Charge for UA Resulting for Rev
[2023-09-06] MEDS: ciprofloxacin 400 MG/200 ML PREMIX 200 MG IV (14:37)
[2023-09-06] MEDS: ondansetron 2 mg/ML SDV 2 mL 4 MG IVP (14:41)
[2023-09-06 15:08] LABS: Bilirubin Urine Neg (Negative); Blood Urine Neg (Negative); Glucose Urine UA Norm (Normal); Ketones Urine Negative (Negative); Leukocyte Esterase Urine Negative (Negative); Nitrate Urine Negative (Negative); Protein Urine Neg (Negative); Specific Gravity, Urine 1.005 (1.005-1.030); Sulfosalicylic Acid Urine Negative (Negative); Urine Appearance Clear (CLEAR); Urine Color Yellow (Yellow); Urobilinogen Urine Norm (Negative); pH Urine 8 (5-7)
--- NOTE | 2023-09-06 15:29 | P.HP_ITS ---
Providers/Chief Complaint 2 Admitting Physician: Michael Thibodeaux Primary Care Provider: Lucy Dean Chief Complaint: ABD PAIN WITH RECTAL BLEEDING History of Present Illness Pleasant 63-year-old lady presented due to hematochezia of several days duration, left lower quadrant abdominal pain. Chills, subjective fever. Poor appetite. In ER with sinus tachycardia, leukocytosis 13, with atypical lymphocytes 14%. CT abdomen pelvis with interval appearance of marked mural thickening of sigmoid colon and mid abdominal and left inguinal lymphadenopathy. Possible contributing factors include infectious/inflammatory pathology and typical lymph station history of underlying hematologic malignancy with other pathology including ischemic considered less likely. Incidentally also noted to stable mild dilation of extrahepatic CBD with no obstructing lesion. Consider MRCP or ERCP for further assessment if warranted. She is started on Cipro and Flagyl. States colonoscopy several years ago was unremarkable. Review of Systems 2 Const: Denies: fever(s), chills, body aches or malaise ENMT: Denies: throat pain Card: Denies: chest pain, edema, pre-syncope or dyspnea on exertion Resp: Denies: dyspnea, productive cough, change in phlegm color or hemoptysis GI: Denies: abdominal pain, nausea, vomiting, diarrhea, constipation, hematochezia or melena : Denies: flank pain, urinary frequency or hematuria Musc: Denies: back pain, joint swelling or joint redness Skin/Breast: Denies: rash or new lesions Neuro: Reports: confusion Medications/Allergies Home Medications Medication Instructions Recorded Confirmed Last Taken Type ascorbic acid (vitamin C) 500 mg 500 mg PO BID 12/05/19 09/06/23 09/05/23 History tablet (Vitamin C) calcium carbonate 500 mg-vitamin See Rx Instructions .Route .COMPLEX 12/05/19 09/06/23 09/05/23 History D3 5 mcg (200 unit) tablet (Calcium 500 + D) cyclobenzaprine 10 mg tablet See Rx Instructions .Route .COMPLEX 12/05/19 09/06/23 09/05/23 History allopurinol 300 mg tablet 300 mg PO DAILY 02/26/20 09/06/23 09/05/23 History atorvastatin 20 mg tablet (Lipitor) 20 mg PO QPM 02/26/20 09/06/23 09/05/23 History ropinirole 0.25 mg tablet 0.25 - 0.5 mg PO BEDTIME 02/26/20 09/06/23 09/05/23 History folic acid 1 mg tablet 1 mg PO DAILY 05/13/20 09/06/23 09/05/23 History loperamide 2 mg capsule 2 mg PO Q6H PRN Diarrhea 05/13/20 09/06/23 03/17/22 History Seated walker #1 ea 01/27/21 09/06/23 03/17/22 Rx sucralfate 1 gram tablet (Carafate) 1 g PO BID 11/25/21 09/06/23 09/05/23 History levothyroxine 25 mcg tablet 25 mcg PO QAM #30 tabs 11/27/21 09/06/23 09/05/23 Rx metoprolol tartrate 25 mg tablet 50 mg (2 x 25 mg) PO BID #120 tabs 02/03/22 09/06/23 09/05/23 Rx acetaminophen 300 mg-codeine 30 mg 1 tab PO Q4H PRN pain #30 tabs 03/13/23 09/06/23 Unknown Rx tablet potassium chloride 20 mEq 20 meq PO DAILY #90 tabs 03/13/23 09/06/23 09/05/23 Rx tablet,extended release gabapentin 300 mg capsule See Rx Instructions .Route 07/31/23 09/06/23 09/05/23 Rx .COMPLEX #270 caps lorazepam 0.5 mg tablet 0.5 - 1 mg PO TID 09/06/23 09/06/23 09/05/23 History pantoprazole 40 mg tablet,delayed 40 mg PO DAILY 09/06/23 09/06/23 09/05/23 History release thiamine HCl (vitamin B1) 100 mg 100 mg PO DAILY 09/06/23 09/06/23 09/05/23 History tablet trazodone 50 mg tablet 50 - 100 mg PO BEDTIME 09/06/23 09/06/23 09/05/23 History Allergies Allergy/AdvReac Type Severity Reaction Status Date / Time hydrocortisone Allergy Severe Elevated Verified 09/06/23 11:38 [From Cortizone-10] heart rate hydromorphone [From Dilaudid] Allergy Severe Hallucinati Verified 09/06/23 11:38 ons meperidine [From Demerol] Allergy Severe Excessive Verified 09/06/23 11:38 vomitting morphine Allergy Severe Heart rate Verified 09/06/23 11:38 drops cortisone Allergy Unknown headache Verified 09/06/23 11:38 diphenhydramine Allergy ADR/ALGY-Pa Verified 09/06/23 11:38 [From Benadryl] lpitations haloperidol [From Haldol] Allergy difficulty Verified 09/06/23 11:38 breathing PFSH Acute 2 PFSH: Medical History Helicobacter pylori gastritis Recurrent pneumonia Hypersomnolence Lumbar post-laminectomy syndrome Cervical post-laminectomy syndrome Peripheral neuropathy Hypothyroidism Restless leg syndrome Anxiety Degenerative arthritis Fibromyalgia Hyperlipidemia Hypertension Waldenstrom macroglobulinemia Lumbar radiculopathy Carpal tunnel syndrome, bilateral upper limbs Surgical History Hx of colonoscopy History of esophagogastroduodenoscopy (EGD) H/O section x 2 History of facial surgery 1991 Following trauma, x3 History of shoulder surgery Right rotator cuff repair x 2 History of cervical spinal surgery [facility]: 02/14/2017 Posterolateral cervical fusion C2-C6 03/02/2016 C3-C4 ACDFF, removal of prior anterior cervical plate, C4-C5 2004 C4-C5 ACDFF All operative reports scanned to chart History of lumbar surgery 2013, 2011 and 2010 [facility]: Lumbar fusion/fixation Family History Mother Lung disease Father Myocardial infarction Hypertension Diabetes Social History Smoking and tobacco/nicotine status: former use of tobacco/nicotine (quit 2006, smoked 30+ years) Quit status (tobacco/nicotine): has quit using Year quit tobacco: 2006 Former quit date comment: 1 ppd x 35 years Alcohol intake: current Alcohol intake frequency: few times a week Substance/Drug Use: never Household members: significant other Marital status: Life Partner Current occupational status: disabled Vitals/I&O/Wt Last Vital Signs Temp 98.1 F 09/06/23 11:26 Pulse 114 H 09/06/23 14:40 Resp 17 09/06/23 14:40 BP 133/85 09/06/23 14:40 Pulse Ox 97 09/06/23 14:40 O2 Del Method Room Air 09/06/23 14:40 Weight last 48 hrs Weight 52.617 kg Physical Exam 2 Const: COMMON NORMALS: patient oriented x3 and alert GENERAL APPEARANCE: c ooperative ORIENTATION/CONSCIOUSNESS: Yes awake HENMT: COMMON NORMALS: oropharynx normal Neck/C-Spine: COMMON NORMALS: no JVD Resp: COMMON NORMALS: normal respiratory effort and clear to auscultation bilaterally AUSCULTATION: clear to auscultation bilaterally Cardio: COMMON NORMALS: no JVD, regular rhythm, S1 normal heart sound present, S2 normal heart sound present and No murmurs present (Cardio) RHYTHM: regular rhythm HEART SOUNDS: S1 normal heart sound present and S2 normal heart sound present GI: COMMON NORMALS: Normal to inspection, nondistended, normoactive bowel sounds present and Soft to palpation PALPATION: Yes Soft to palpation and Yes Tenderness to palpation present (GI) Details: LLQ Extremity: COMMON NORMALS: no joint enlargement and no pedal edema Neuro: COMMON NORMALS: patient oriented x3 and moves all extremities S ENSORIUM/ORIENTATION: Yes alert Skin: COMMON NORMALS: no rashes or lesions noted GENERAL SKIN EXAM: no rashes or lesions noted Data 09/06/23 11:45 09/06/23 11:45 A&P Assessment and plan (1) Colitis: Complicated colitis with hematochezia, possibly secondary to diverticulitis, with SIRS criteria, leukocytosis, tachycardia, and subjective fever. Blood cultures collected. Check lactic acid. Will treat empirically with antibiotics with Flagyl Cipro, check stool studies. IV hydration. Bowel rest discussed with her. Reviewed vitals, CBC, INR, CMP, lipase, urinalysis, CT abdomen pelvis. Reviewed ER note. Discussed with ER physician. She denies any recent antibiotics. Obtain stool studies. Check C. difficile. Follow-up CBC, CMP. (2) Anemia: Acute blood loss anemia, normocytic, hemoglobin reviewed, down to 10.2. Reports colonoscopy several years ago, unremarkable. Check iron studies. Recheck hemoglobin tonight. Will request type and screen. SCD only VTE prophylaxis due to bleeding. Plan RLS: Continue ropinirole HLD, hold statin for now HTN: Continue metoprolol, monitor blood pressures EtOH intake: Continue Tiemann, folic acid, multivitamin Hypothyroidism: Continue levothyroxine Other medical problems Attestations 2 Medical Necessity Statement*: Continue admission for assessment management of colitis with hematochezia, SIRS criteria, acute blood loss anemia. Diagnoses Colitis K52.9 Anemia D64.9
[2023-09-06] MEDS: metroNIDAZOLE IV 500 MG/100 ML PREMIX 100 MG IV (16:29)
[2023-09-06] MEDS: D5-NS 0.45% + KCL 20 mEq 20 MEQ/1,000 ML BAG 125 MEQ IV (17:43)
[2023-09-06] MEDS: sucralfate 1 gm Tablet PO (17:44)
[2023-09-06 17:53] LABS: Ferritin 121 ng/mL (15-150); Iron 26 ug/dL (37-145); Percent Saturation 10.1 % (20-50); Total Iron Binding Capacity 255 mcg/dl; Unsaturated Iron Binding 229 ug/dL (112-347)
[2023-09-06] MEDS: gabapentin 300 mg Capsule 600 MG PO (18:04)
[2023-09-06] MEDS: cyclobenzaprine 10 mg Tablet 20 MG PO (18:04)
[2023-09-06] MEDS: metoprolol tartrate 50 mg Tablet PO (18:05)
[2023-09-06] MEDS: ropinirole 0.25 mg Tablet PO (20:27)
[2023-09-06] MEDS: LORazepam 0.5 mg Tablet PO (20:27)
[2023-09-07] VITALS (10 sets, daily range): BP systolic 90–107; BP diastolic 59–69; PULSE 81–93; RESP 14–18; TEMP 36.4–37.2; O2SAT 94–96
[2023-09-07] MEDS: metroNIDAZOLE IV 500 MG/100 ML PREMIX 100 MG IV ×4 (00:35→23:40)
[2023-09-07] MEDS: ciprofloxacin 400 MG/200 ML PREMIX 200 MG IV ×2 (03:11→14:23)
[2023-09-07] MEDS: D5-NS 0.45% + KCL 20 mEq 20 MEQ/1,000 ML BAG 125 MEQ IV ×3 (03:12→20:06)
[2023-09-07] MEDS: acetaminophen-codeine 300-30mg Tablet 1 TAB PO ×3 (03:22→14:26)
[2023-09-07 05:07] LABS: Basophils # 0.1 10^3/uL (0.0-0.1); Basophils % 0.4 %; Eosinophils # 0.1 10^3/uL (0.0-0.8); Lymphocytes # 6.2 10^3/uL (0.8-4.8); Lymphocytes % 55.7 %; Mean Corpuscular HGB Conc 31.7 g/dL (30-55); Mean Corpuscular Hemoglobin 31.1 pg (27-33); Mean Platelet Volume 9.5 fL (7.4-10.4); Monocytes # 1.3 10^3/uL (0.2-0.9); Monocytes % 11.2 %; Neutrophils # 3.47 10^3/uL (1.8-7.7); Neutrophils % 31.1 %; Nucleated Red Blood Cells % 0.2 %; Platelet Count 100 10^3/cmm (157-399); Red Blood Count 2.96 10^6/uL (3.85-5.65); Red Cell Distribution Width 14.3 % (12.1-15.1); White Blood Count 11.17 10^3/uL (3.29-11.43)
[2023-09-07 05:31] LABS: Alanine Aminotransferase 13 U/L (0-33); Albumin Level 3.3 g/dL (3.5-5.2); Alkaline Phosphatase 77 U/L (35-105); Anion Gap 12.7 (5-19); Aspartate Amino Transferase 34 U/L (0-32); Blood Urea Nitrogen 5 mg/dL (8-23); Calcium 8.5 mg/dL (8.5-10.5); Carbon Dioxide 24 mmol/L (22-29); Chloride 99 mmol/L (98-107); Globulin 3.3 g/dL (1.3-4.6); Glomerular Filtration Rate 72.7 mL/min (90-130); Glucose 141 mg/dL (65-115); Osmolality Calculated 274 mOsm/kg (285-295); Potassium 3.7 mmol/L (3.5-5.1); Sodium 132 mmol/L (136-145); Total Bilirubin 0.4 mg/dL (0.15-1.2); Total Protein 6.6 g/dL (6.6-8.7)
[2023-09-07] MEDS: levothyroxine 25 mcg Tablet PO (05:46)
[2023-09-07] MEDS: gabapentin 300 mg Capsule PO (05:46)
[2023-09-07] MEDS: cyclobenzaprine 10 mg Tablet PO (05:46)
[2023-09-07 05:54] LABS: Slide Review Slide Review Perform
[2023-09-07] MEDS: pantoprazole DR 40 mg Tablet PO (08:57)
[2023-09-07] MEDS: sucralfate 1 gm Tablet PO ×2 (08:57→17:26)
[2023-09-07] MEDS: thiamine 100 mg Tablet PO (08:58)
[2023-09-07] MEDS: folic acid 1 mg Tablet PO (08:58)
[2023-09-07] MEDS: LORazepam 0.5 mg Tablet PO ×3 (08:58→20:05)
[2023-09-07] MEDS: allopurinol 300 mg Tablet PO (08:58)
--- NOTE | 2023-09-07 09:23 | PC.NURSE ---
Blood pressure addressed with MD. Gloria to hold until the metoprolol and monitor blood pressure.
--- NOTE | 2023-09-07 10:41 | PC.CHAP ---
Pastoral Care Encounter/Spiritual Assessment Type of Contact [] Declined pain medicine physician visit [] Patient/Family/Request visit [] Outpatient visit [] Follow-up visit [] Physician referral [] Code/Alert [x] Routine visit [] Staff referral [] Actively dying [] Patient sleeping [] Family support [] [] Out of room [] Palliative care [] [x] Receiving care in room [] Pre-surgical visit [] Trauma [] Long length of stay [] ICU visit [] Other: Relational/Emotional Strength [x] Patient feels connected with others/family/visitors/staff [] Distress [] Loneliness/isolation [] Abandonment Spirituality of Patient [x] Person of Ruthie [] Attends Yazidi of their Ruthie [x] Believes in Prayer [] Reads Bible or Church materials [] There are Spiritual issues to be addressed Seismic Engineer Interventions [x] Prayer [x] Active listening [x] Non-anxious presence [x] Spiritual/emotional support [] Crisis/trauma care [x] Spiritual counseling [] Bereavement support [] Provided bereavement packet [] Provided Bible/devotional materials [] Provided toy/stuffed animal, coloring book to patient or family member [] Provided Communion [] Anointing/[place] [] Salvation [x] Completed spiritual assessment [] Other: Impact on Illness or Injury [] Angry [] Fearful [] Anxious [] Often cries [] Exhaustion [] Unable to work [] Unable to attend uatsdin [] Unable to walk/stand [] Unable to read [] Unable to drive [] Unable to eat/drink [] Unable to sleep [] Unable to be with family [] Patient intubated [] Other: Summary lose of blood, replaced blood she has this ever so offten well go home has a good attitude Time spent with patient 10 mins
[2023-09-07] MEDS: metoprolol tartrate 50 mg Tablet PO (17:26)
[2023-09-07] MEDS: cyclobenzaprine 10 mg Tablet 20 MG PO (17:26)
[2023-09-07] MEDS: gabapentin 300 mg Capsule 600 MG PO (17:26)
[2023-09-07] MEDS: ropinirole 0.25 mg Tablet PO (20:05)
--- NOTE | 2023-09-07 20:48 | P.PN_ITS ---
Subjective 2 Subjective: Still having pain/burning in left lower quadrant. No further hematochezia. So far no additional bowel movement. Vitals/I&O/Wt Last Vital Signs Temp 97.6 F 09/07/23 19:27 Pulse 81 09/07/23 19:27 Resp 15 09/07/23 19:27 BP 107/69 09/07/23 19:27 Pulse Ox 95 09/07/23 19:27 O2 Del Method Room Air 09/07/23 19:27 09/07/23 09/07/23 09/07/23 06:59 14:59 22:59 Intake Total 1277.083 / 9192.772 3635 / 1100 1300 / 2400 Balance 1277.083 / 7630.266 2911 / 1100 1300 / 2400 Weight last 48 hrs Weight 54.913 kg Weight 54.913 kg Weight 52.617 kg Physical Exam 2 Const: COMMON NORMALS: patient oriented x3 and alert GENERAL APPEARANCE: c ooperative ORIENTATION/CONSCIOUSNESS: Yes awake HENMT: COMMON NORMALS: oropharynx normal Neck/C-Spine: COMMON NORMALS: no JVD Resp: COMMON NORMALS: normal respiratory effort and clear to auscultation bilaterally AUSCULTATION: clear to auscultation bilaterally Cardio: COMMON NORMALS: no JVD, regular rhythm, S1 normal heart sound present, S2 normal heart sound present and No murmurs present (Cardio) RHYTHM: regular rhythm HEART SOUNDS: S1 normal heart sound present and S2 normal heart sound present GI: COMMON NORMALS: Normal to inspection, nondistended, normoactive bowel sounds present and Soft to palpation PALPATION: Yes Soft to palpation and Yes Tenderness to palpation present (GI) Details: LLQ Extremity: COMMON NORMALS: no joint enlargement and no pedal edema Neuro: COMMON NORMALS: patient oriented x3 and moves all extremities S ENSORIUM/ORIENTATION: Yes alert Skin: COMMON NORMALS: no rashes or lesions noted GENERAL SKIN EXAM: no rashes or lesions noted Data 09/07/23 04:13 09/07/23 04:13 A&P Assessment and plan (1) Colitis: So far no further hematochezia, tachycardia has improved, afebrile. Reviewed WBC, noted improved to 11.17. Reviewed hemoglobin, noted down to 9.2 with acute blood loss anemia. Reviewed platelets noted down to 100. Possibly some delusional effect with IV fluids. As she is still having pain in left lower quadrant, will for now hold off on advancing diet, continue with ice chips and sips for now. Collect stool studies when able. treat empirically with antibiotics with Fredis Cleary, check stool studies. IV hydration. Discussed with case management. (2) Anemia: Acute blood loss anemia, normocytic, hemoglobin reviewed, down to 9.2. Reports colonoscopy several years ago, unremarkable. Reviewed iron studies. Noted iron deficiency anemia. Likely chronic component to the acute bleeding. Discussed with her we will need endoscopy after improvement. Recheck hemoglobin tonight. Will request type and screen. SCD only VTE prophylaxis due to bleeding. Plan RLS: Continue ropinirole HLD, hold statin for now HTN: Continue metoprolol, monitor blood pressures EtOH intake: Continue Thiamine, folic acid, multivitamin Hypothyroidism: Continue levothyroxine Other medical problems Attestations 2 Medical Necessity Statement*: Continue admission for assessment management of colitis, acute blood loss anemia. Diagnoses Colitis K52.9 Anemia D64.9
[2023-09-08] MEDS: ciprofloxacin 400 MG/200 ML PREMIX 200 MG IV ×2 (02:01→15:48)
[2023-09-08 03:06] VITALS: BP 105/67; PULSE 86; RESP 15; TEMP 36.8; O2SAT 94
[2023-09-08 05:25] LABS: Basophils % 0.4 %; Eosinophils # 0.1 10^3/uL (0.0-0.8); Eosinophils % 1.1 %; Hematocrit 27.1 % (36-47); Lymphocytes # 5.1 10^3/uL (0.8-4.8); Lymphocytes % 51.5 %; Mean Corpuscular HGB Conc 32.1 g/dL (30-55); Mean Corpuscular Hemoglobin 31.1 pg (27-33); Mean Corpuscular Volume 96.8 fl (85-98); Mean Platelet Volume 8.6 fL (7.4-10.4); Monocytes # 1.4 10^3/uL (0.2-0.9); Monocytes % 14.5 %; Neutrophils # 3.16 10^3/uL (1.8-7.7); Neutrophils % 31.7 %; Nucleated Red Blood Cells % 0 %; Platelet Count 88 10^3/cmm (157-399); Red Cell Distribution Width 14.3 % (12.1-15.1); White Blood Count 9.96 10^3/uL (3.29-11.43)
[2023-09-08] MEDS: D5-NS 0.45% + KCL 20 mEq 20 MEQ/1,000 ML BAG 125 MEQ IV ×3 (05:47→23:37)
[2023-09-08] MEDS: levothyroxine 25 mcg Tablet PO (05:48)
[2023-09-08] MEDS: gabapentin 300 mg Capsule PO (05:48)
[2023-09-08] MEDS: cyclobenzaprine 10 mg Tablet PO (05:48)
[2023-09-08 05:50] LABS: Alanine Aminotransferase 13 U/L (0-33); Albumin Level 3.2 g/dL (3.5-5.2); Alkaline Phosphatase 68 U/L (35-105); Anion Gap 12.1 (5-19); Aspartate Amino Transferase 35 U/L (0-32); Blood Urea Nitrogen 4 mg/dL (8-23); Calcium 8.6 mg/dL (8.5-10.5); Carbon Dioxide 24 mmol/L (22-29); Chloride 104 mmol/L (98-107); Globulin 3.7 g/dL (1.3-4.6); Glomerular Filtration Rate 72.7 mL/min (90-130); Glucose 137 mg/dL (65-115); Osmolality Calculated 281 mOsm/kg (285-295); Potassium 4.1 mmol/L (3.5-5.1); Sodium 136 mmol/L (136-145); Total Bilirubin 0.2 mg/dL (0.15-1.2); Total Protein 6.9 g/dL (6.6-8.7)
[2023-09-08 06:00] LABS: Slide Review Slide Review Perform
[2023-09-08 08:00] VITALS: BP 101/65; PULSE 93; RESP 16; TEMP 36.6; O2SAT 94
[2023-09-08 09:15] LABS: Hematocrit 27.1 % (36-47); Retic Production Index 1.15; Reticulocyte % 1.7 % (0.5-2.0)
[2023-09-08 09:31] LABS: Lactate Dehydrogenase 198 U/L (135-214)
[2023-09-08 09:32] LABS: LAB Peripheral Smear Sent for Review
[2023-09-08] MEDS: acetaminophen-codeine 300-30mg Tablet 1 TAB PO ×2 (09:49→17:26)
[2023-09-08] MEDS: allopurinol 300 mg Tablet PO (09:49)
[2023-09-08] MEDS: LORazepam 0.5 mg Tablet PO ×3 (09:50→20:34)
[2023-09-08] MEDS: thiamine 100 mg Tablet PO (09:50)
[2023-09-08] MEDS: metoprolol tartrate 50 mg Tablet PO ×2 (09:50→17:27)
[2023-09-08] MEDS: metroNIDAZOLE IV 500 MG/100 ML PREMIX 100 MG IV ×3 (09:50→23:41)
[2023-09-08] MEDS: folic acid 1 mg Tablet PO (09:50)
[2023-09-08] MEDS: pantoprazole DR 40 mg Tablet PO (09:50)
[2023-09-08] MEDS: sucralfate 1 gm Tablet PO ×2 (09:50→17:27)
[2023-09-08] MEDS: ondansetron 2 mg/ML SDV 2 mL 4 MG IVP (10:19)
[2023-09-08 12:00] VITALS: BP 114/69; PULSE 82; RESP 16; TEMP 36.8; O2SAT 97
--- NOTE | 2023-09-08 12:26 | PC.SOCIAL ---
IMM Update pg 2 of IMM updated and reviewed w/ patient. Copy provided and copy dated, initialed and placed in chart.
[2023-09-08 16:00] VITALS: BP 113/95; PULSE 87; RESP 16; TEMP 37.2; O2SAT 95
[2023-09-08] MEDS: gabapentin 300 mg Capsule 600 MG PO (17:26)
[2023-09-08 20:00] VITALS: BP 109/68; PULSE 73; RESP 17; TEMP 36.8; O2SAT 95
[2023-09-08] MEDS: ropinirole 0.25 mg Tablet PO (20:34)
[2023-09-08] MEDS: cyclobenzaprine 10 mg Tablet 20 MG PO (20:34)
--- NOTE | 2023-09-08 22:14 | P.PN_ITS ---
Subjective 2 Subjective: Feeling slightly better. Abdomen not quite as bothersome, but splitting machine tender. Vitals/I&O/Wt Last Vital Signs Temp 98.2 F 09/08/23 20:00 Pulse 73 09/08/23 20:00 Resp 17 09/08/23 20:00 BP 109/68 09/08/23 20:00 Pulse Ox 95 09/08/23 20:00 O2 Del Method Room Air 09/08/23 03:06 09/08/23 09/08/23 09/08/23 06:59 14:59 22:59 Intake Total 1300 / 3700 100 / 100 1300 / 1400 Balance 1300 / 3700 100 / 100 1300 / 1400 Weight last 48 hrs Weight 55.055 kg Weight 54.913 kg Physical Exam 2 Const: COMMON NORMALS: patient oriented x3 and alert GENERAL APPEARANCE: c ooperative ORIENTATION/CONSCIOUSNESS: Yes awake HENMT: COMMON NORMALS: oropharynx normal Neck/C-Spine: COMMON NORMALS: no JVD Resp: COMMON NORMALS: normal respiratory effort and clear to auscultation bilaterally AUSCULTATION: clear to auscultation bilaterally Cardio: COMMON NORMALS: no JVD, regular rhythm, S1 normal heart sound present, S2 normal heart sound present and No murmurs present (Cardio) RHYTHM: regular rhythm HEART SOUNDS: S1 normal heart sound present and S2 normal heart sound present GI: COMMON NORMALS: Normal to inspection, nondistended, normoactive bowel sounds present and Soft to palpation PALPATION: Yes Soft to palpation and Yes Tenderness to palpation present (GI) Extremity: COMMON NORMALS: no joint enlargement and no pedal edema Neuro: COMMON NORMALS: patient oriented x3 and moves all extremities S ENSORIUM/ORIENTATION: Yes alert Skin: COMMON NORMALS: no rashes or lesions noted GENERAL SKIN EXAM: no rashes or lesions noted Data 09/08/23 05:19 09/08/23 05:19 Micro: Microbiology 09/06/23 14:03 Blood Culture - Preliminary Blood 09/06/23 13:56 Blood Culture - Preliminary Blood A&P Assessment and plan (1) Colitis: So far no additional bowel movement. No hematochezia though either. However, pain only minimally improved. Hold off on starting oral diet for now. Continue NPO. Continue IV hydration, at risk of dehydration. At risk of fluid overload, monitor. Continue Cipro, Flagyl. Collect stool studies when able. Reviewed blood culture, so far no growth. Follow-up. Discussed with showcase trimmer (2) Anemia: Reviewed hemoglobin, noted lower down to 8.7 today. Although has not had hematochezia anymore. Possibly equilibrating, however, also reviewed platelets, noted down to 88,000. Reviewed WBC, noted WNL. Will request peripheral smear, LDH, haptoglobin, reticulocyte panel, assess for hemolysis. Reviewed BUN, creatinine, WNL. Reassess blood counts. Does have underlying iron deficiency anemia as well on my interpretation of the iron studies. Discussed with her we will need endoscopy after improvement. SCD only VTE prophylaxis due to bleeding. Plan RLS: Continue ropinirole HLD, hold statin for now HTN: Continue metoprolol, monitor blood pressures EtOH intake: Continue Thiamine, folic acid, multivitamin Hypothyroidism: Continue levothyroxine Other medical problems Attestations 2 Medical Necessity Statement*: Continue admission for assessment management of colitis, acute blood loss anemia, thrombocytopenia. and High MDM includes amount and/or complexity of data reviewed/ordered [ resulted lab(s)/test(s), ordered lab(s)/test(s) and other healthcare professional discussion] and described risk of complication, morbidity or mortality of management as documented Diagnoses Colitis K52.9 Anemia D64.9
[2023-09-08 23:31] VITALS: BP 114/68; PULSE 79; RESP 16; TEMP 36.5; O2SAT 96
[2023-09-09] MEDS: ciprofloxacin 400 MG/200 ML PREMIX 200 MG IV (01:31)
[2023-09-09 04:00] VITALS: BP 102/61; PULSE 81; RESP 16; TEMP 36.7; O2SAT 92
[2023-09-09] MEDS: gabapentin 300 mg Capsule PO (05:19)
[2023-09-09] MEDS: cyclobenzaprine 10 mg Tablet PO (05:19)
[2023-09-09] MEDS: levothyroxine 25 mcg Tablet PO (05:20)
[2023-09-09 05:27] LABS: Basophils # 0.1 10^3/uL (0.0-0.1); Basophils % 0.6 %; Eosinophils # 0.1 10^3/uL (0.0-0.8); Eosinophils % 1.4 %; Hematocrit 29.5 % (36-47); Lymphocytes % 56.5 %; Mean Corpuscular HGB Conc 31.9 g/dL (30-55); Mean Corpuscular Hemoglobin 30.7 pg (27-33); Mean Corpuscular Volume 96.4 fl (85-98); Mean Platelet Volume 9.2 fL (7.4-10.4); Monocytes # 1.3 10^3/uL (0.2-0.9); Monocytes % 14.7 %; Nucleated Red Blood Cells % 0 %; Platelet Count 131 10^3/cmm (157-399); Red Blood Count 3.06 10^6/uL (3.85-5.65); Red Cell Distribution Width 14.4 % (12.1-15.1); White Blood Count 8.82 10^3/uL (3.29-11.43)
[2023-09-09 05:58] LABS: Alanine Aminotransferase 12 U/L (0-33); Albumin Level 3.1 g/dL (3.5-5.2); Alkaline Phosphatase 68 U/L (35-105); Anion Gap 14.9 (5-19); Aspartate Amino Transferase 34 U/L (0-32); Blood Urea Nitrogen 3 mg/dL (8-23); Calcium 8.6 mg/dL (8.5-10.5); Carbon Dioxide 21 mmol/L (22-29); Chloride 105 mmol/L (98-107); Globulin 4.1 g/dL (1.3-4.6); Glomerular Filtration Rate 63.4 mL/min (90-130); Glucose 96 mg/dL (65-115); Osmolality Calculated 280 mOsm/kg (285-295); Potassium 3.9 mmol/L (3.5-5.1); Sodium 137 mmol/L (136-145); Total Bilirubin 0.3 mg/dL (0.15-1.2); Total Protein 7.2 g/dL (6.6-8.7)
[2023-09-09] MEDS: metroNIDAZOLE IV 500 MG/100 ML PREMIX 100 MG IV (07:28)
[2023-09-09 08:14] VITALS: BP 106/66; PULSE 81; RESP 18; TEMP 36.5; O2SAT 93
[2023-09-09] MEDS: sucralfate 1 gm Tablet PO (09:43)
[2023-09-09] MEDS: LORazepam 0.5 mg Tablet PO (09:43)
[2023-09-09] MEDS: folic acid 1 mg Tablet PO (09:43)
[2023-09-09] MEDS: metoprolol tartrate 50 mg Tablet PO (09:43)
[2023-09-09] MEDS: thiamine 100 mg Tablet PO (09:43)
[2023-09-09] MEDS: pantoprazole DR 40 mg Tablet PO (09:43)
[2023-09-09] MEDS: allopurinol 300 mg Tablet PO (09:43)
[2023-09-09] MEDS: acetaminophen-codeine 300-30mg Tablet 1 TAB PO (09:47)
[2023-09-09] MEDS: D5-NS 0.45% + KCL 20 mEq 20 MEQ/1,000 ML BAG 125 MEQ IV (10:53)
[2023-09-09 11:37] VITALS: BP 104/65; PULSE 75; RESP 18; TEMP 36.5; O2SAT 95
--- NOTE | 2023-09-09 15:01 | P.DS_ITS ---
Discharge Providers Date of Admission: 09/06/23 13:36 Date of Discharge: September 09, 2023 Attending Provider at Admission: Michael Thibodeaux Attending Provider at Discharge: Michael Thibodeaux Primary Care Provider: Lucy Dean Diagnoses at Discharge Discharge Diagnosis (1) Colitis: Status: Acute (2) Anemia: Status: Acute Reason for Visit Reason for Visit: ABD PAIN WITH RECTAL BLEEDING Hospital Course Hospital Course Pleasant 63-year-old lady with history of diverticulosis was admitted for assessment management after presenting with hematochezia, left lower quadrant abdominal pain, found to have mural thickening of the sigmoid colon, left inguinal and lymphadenopathy with suspected colitis/diverticulitis, ischemic etiology less likely. Was treated with ciprofloxacin, Flagyl, IV hydration, bowel rest, blood counts reassessed, has had no further hematochezia, with transient decrease in hemoglobin down to 8.7, platelets came down as well down to 88, today recovering, hemoglobin up to 9.4, platelets up to 131. She is feeling better. Without further hematochezia, no fever, leukocytosis resolved. Tolerating trial of clear liquid diet. She is comfortable discharging home to complete antibiotic course with ciprofloxacin and Flagyl. Additionally found to have iron deficiency anemia. Started on iron. Please follow-up anemia, refer for additional endoscopic workup following colitis and of iron deficiency anemia in 6 weeks. Please follow-up also incidentally found stable mild dilation of extrahepatic common bile duct with no obstruction lesion seen. MRCP or ERCP could be performed for further assessment if clinically warranted. Physical Exam Narrative: Reports she has been much better. Tenderness is resolving. No further blood in the stool. Appetite is returning. Const: COMMON NORMALS: patient oriented x3 and alert GENERAL APPEARANCE: cooperative ORIENTATION/CONSCIOUSNESS: Yes awake HENMT: COMMON NORMALS: oropharynx normal Neck/C-Spine: COMMON NORMALS: no JVD Resp: COMMON NORMALS: normal respiratory effort and clear to auscultation bilaterally AUSCULTATION: clear to auscultation bilaterally Cardio: COMMON NORMALS: no JVD, regular rhythm, S1 normal heart sound present, S2 normal heart sound present and No murmurs present (Cardio) RHYTHM: regular rhythm HEART SOUNDS: S1 normal heart sound present and S2 normal heart sound present GI: COMMON NORMALS: Normal to inspection, nondistended, normoactive bowel sounds present, Soft to palpation and non-tender PALPATION: Yes Soft to palpation Extremity: COMMON NORMALS: no joint enlargement and no pedal edema Neuro: COMMON NORMALS: patient oriented x3 and moves all extremities SENSOR IUM/ORIENTATION: Yes alert Skin: COMMON NORMALS: no rashes or lesions noted GENERAL SKIN EXAM: no rashes or lesions noted Discharge Data Studies Completed and Pending Completed Studies During Hospitalization Category Date Time Status CT abdomen pelvis w con* [id number] Stat Cat Scan 09/06/23 11:28 Completed Pending at discharge Category Date Time Status Blood Cultures ([facility]) Routine Lab 09/06/23 13:56 Results Blood Cultures ([facility]) Routine Lab 09/06/23 14:03 Results Clostridium Difficile PCR Routine Lab 09/06/23 17:57 Uncollected Immunochemical Fecal OCB Routine Lab 09/06/23 17:58 Ordered Lactoferrin Routine Lab 09/06/23 17:58 Ordered OVA and Parasites, Conc and PE Routine Lab 09/06/23 17:58 Ordered Salmonella / Shigella / Campy Routine Lab 09/06/23 17:58 Ordered Radiology Impressions Abdomen/Pelvis CT 09/06/23 11:28 IMPRESSION: 1. Interval appearance of marked mural thickening of the sigmoid colon and mild abdominal and left inguinal lymphadenopathy. Possible contributing factors include infectious/inflammatory pathology and atypical manifestation history of underlying hematogenous malignancy with other pathology including ischemic considered less likely. 2. Stable mild dilatation of the extrahepatic common duct with no obstructing lesion seen; MRCP or ERCP could be performed for further assessment if clinically warranted. 3. Minor findings as above. ADDENDUM: 09/06/23 9730 THIS REPORT CONTAINS FINDINGS THAT MAY BE CRITICAL TO PATIENT CARE. The findings were verbally communicated via telephone conference with MELANIA PHILLIPS at 1:08 PM LACING OPERATOR on 09/06/2023. The findings were acknowledged and understood. Laboratory Results WBC 8.82 10^3/uL (3.29-11.43) 09/09/23 05:21 RBC 3.06 10^6/uL (3.85-5.65) L 09/09/23 05:21 Hgb 9.40 g/dL (11.27-16.99) L 09/09/23 05:21 Hct 29.5 % (36-47) L 09/09/23 05:21 MCV 96.4 fl (85-98) 09/09/23 05:21 MCH 30.7 pg (27-33) 09/09/23 05:21 MCHC 31.9 g/dL (30-55) 09/09/23 05:21 RDW 14.4 % (12.1-15.1) 09/09/23 05:21 Plt Count 131 10^3/cmm (157-399) L D 09/09/23 05:21 MPV 9.2 fL (7.4-10.4) 09/09/23 05:21 Neut % (Auto) 26.0 % 09/09/23 05:21 Lymph % (Auto) 56.5 % 09/09/23 05:21 Lamb % (Auto) 14.7 % 09/09/23 05:21 Eos % (Auto) 1.4 % 09/09/23 05:21 Baso % (Auto) 0.6 % 09/09/23 05:21 Reticulocyte % (Auto) 1.7 % (0.5-2.0) 09/08/23 05:19 Neut # (Auto) 2.30 10^3/uL (1.8-7.7) 09/09/23 05:21 Lymph # (Auto) 5.0 10^3/uL (0.8-4.8) H 09/09/23 05:21 [place] # (Auto) 1.3 10^3/uL (0.2-0.9) H 09/09/23 05:21 Eos # (Auto) 0.1 10^3/uL (0.0-0.8) 09/09/23 05:21 Baso # (Auto) 0.1 10^3/uL (0.0-0.1) 09/09/23 05:21 Nucleated RBC % (auto) 0 % 09/09/23 05:21 Total Counted 100 (0-100) 09/06/23 11:45 Atypical Lymphs % 14.0 % (0-5) H 09/06/23 11:45 Absolute Neutrophils 3.7 10^3/cmm (1.4-6.5) 09/06/23 11:45 Segmented Neutrophils 28 % 09/06/23 11:45 Abs Segm Neuts (Man) 3.7 10/cmm (1.6-7.1) 09/06/23 11:45 Band Neutrophils 0.0 % 09/06/23 11:45 Abs Band Neuts (Man) 0.0 10^3/cmm (0.0-1.2) 09/06/23 11:45 Absolute Lymphocytes 9.1 10^3/cmm (1.2-3.4) H 09/06/23 11:45 Lymphocytes (Manual) 55 % 09/06/23 11:45 Monocytes (Manual) 3.0 % 09/06/23 11:45 Absolute Monocytes 0.4 10^3/cmm (0.1-0.6) 09/06/23 11:45 Eosinophils (Manual) 0 % 09/06/23 11:45 Absolute Eosinophils 0.0 10^3/cmm (0.0-0.7) 09/06/23 11:45 Basophils (Manual) 0.0 % 09/06/23 11:45 Absolute Basophils 0.0 10^3/cmm (0.0-0.2) 09/06/23 11:45 Nucleated RBCs # 0.0 /100WBC 09/09/23 05:21 Platelet Estimate Decreased (Normal) L 09/06/23 11:45 Peripher Smr Path Cons Sent for review 09/08/23 05:19 Retic Production Index 1.15 09/08/23 05:19 Haptoglobin 184.0 mg/L (30-200) 09/08/23 05:19 PT 13.10 SECONDS (12.1-14.9) 09/06/23 11:45 INR 0.96 (0.8-1.2) 09/06/23 11:45 APTT 25.6 SECONDS (23.9-36.7) 09/06/23 11:45 Sodium 137 mmol/L (136-145) 09/09/23 05:21 Potassium 3.9 mmol/L (3.5-5.1) 09/09/23 05:21 Chloride 105 mmol/L (98-107) 09/09/23 05:21 Carbon Dioxide 21 mmol/L (22-29) L 09/09/23 05:21 Anion Gap 14.9 (5-19) 09/09/23 05:21 BUN 3 mg/dL (8-23) L 09/09/23 05:21 Creatinine 0.9 mg/dL (0.5-0.9) 09/09/23 05:21 GFR Calculation 63.4 mL/min (90-130) L 09/09/23 05:21 Glucose 96 mg/dL (65-115) 09/09/23 05:21 Calculated Osmolality 280 mOsm/kg (285-295) L 09/09/23 05:21 Calcium 8.6 mg/dL (8.5-10.5) 09/09/23 05:21 Iron 26 ug/dL (37-145) L 09/06/23 11:45 TIBC 255 mcg/dl 09/06/23 11:45 % Saturation 10.1 % (20-50) L 09/06/23 11:45 Unsat Iron Binding 229 ug/dL (112-347) 09/06/23 11:45 Ferritin 121 ng/mL (15-150) 09/06/23 11:45 Total Bilirubin 0.3 mg/dL (0.15-1.2) 09/09/23 05:21 AST 34 U/L (0-32) H 09/09/23 05:21 ALT 12 U/L (0-33) 09/09/23 05:21 Alkaline Phosphatase 68 U/L (35-105) 09/09/23 05:21 Lactate Dehydrogenase 198 U/L (135-214) 09/08/23 05:19 Total Protein 7.2 g/dL (6.6-8.7) 09/09/23 05:21 Albumin 3.1 g/dL (3.5-5.2) L 09/09/23 05:21 Globulin 4.1 g/dL (1.3-4.6) 09/09/23 05:21 Lipase 16 U/L (13-60) 09/06/23 11:45 Urine Color Yellow (Yellow) 09/06/23 14:13 Urine Appearance Clear (CLEAR) 09/06/23 14:13 Urine pH 8 (5-7) H 09/06/23 14:13 Ur Specific [place] 1.005 (1.005-1.030) 09/06/23 14:13 Urine Protein Neg (Negative) 09/06/23 14:13 Urine Glucose (UA) Norm (Normal) 09/06/23 14:13 Urine Ketones Negative (Negative) 09/06/23 14:13 Urine Blood Neg (Negative) 09/06/23 14:13 Urine Nitrate Negative (Negative) 09/06/23 14:13 Urine Bilirubin Neg (Negative) 09/06/23 14:13 Prot Sulfosalicylic Acd Negative (Negative) 09/06/23 14:13 Urine Urobilinogen Norm mg/dL (Negative) 09/06/23 14:13 Ur Leukocyte Esterase Negative (Negative) 09/06/23 14:13 Blood Type AB Positive 09/07/23 21:07 Rho(D) Type Rh positive 09/07/23 21:07 Antibody Screen Negative 09/07/23 21:07 Vitals Last Vital Signs Temp 97.7 F 09/09/23 11:37 Pulse 75 09/09/23 11:37 Resp 18 09/09/23 11:37 BP 104/65 09/09/23 11:37 Pulse Ox 95 09/09/23 11:37 O2 Del Method Room Air 09/09/23 11:37 Discharge Plan Discharge Patient Disposition: Home Condition: Stable Prescriptions: New ciprofloxacin HCl 500 mg tablet 500 mg PO BID Qty: 12 0RF ferrous sulfate [iron] 325 mg (65 mg iron) tablet 325 mg PO EVERY OTHER DAY Qty: 90 0RF metronidazole 500 mg tablet 500 mg PO TID Qty: 18 0RF Continued (DME) Seated walker See Rx Instructions .Route .MEDSUPPLY Qty: 1 0RF Rx Instructions: As directed folic acid 1 mg tablet 1 mg PO DAILY loperamide 2 mg capsule 2 mg PO Q6H PRN (Reason: Diarrhea) acetaminophen-codeine 300-30 mg tablet 1 tab PO Q4H PRN (Reason: pain) Qty: 30 0RF metoprolol tartrate 25 mg tablet 50 mg PO BID Qty: 120 3RF gabapentin 300 mg capsule See Rx Instructions .ROUTE .COMPLEX Qty: 270 3RF Dose Instruction: TAKE ONE CAPSULE BY MOUTH IN THE MORNING AND THEN TAKE TWO CAPSULES BY MOUTH IN THE EVENING Rx Instructions: TAKE ONE CAPSULE BY MOUTH IN THE MORNING AND THEN TAKE TWO CAPSULES BY MOUTH IN THE EVENING potassium chloride 20 mEq tablet extended release 20 meq PO DAILY Qty: 90 1RF atorvastatin [Lipitor] 20 mg Tablet 20 mg PO QPM ropinirole 0.25 mg Tablet 0.25 - 0.5 mg PO BEDTIME allopurinol 300 mg Tablet 300 mg PO DAILY cyclobenzaprine 10 mg Tablet See Rx Instructions .ROUTE .COMPLEX Rx Instructions: 10 mg orally qam and 20mg po bedtime ascorbic acid (vitamin C) [Vitamin C] 500 mg Tablet 500 mg PO BID calcium carbonate-vitamin D3 [Calcium 500 + D] 500 mg(1,250mg) -200 unit Tablet See Rx Instructions .ROUTE .COMPLEX Rx Instructions: 1 tab orally in the morning/ 2 tabs orally in the evening sucralfate [Carafate] 1 gram Tablet 1 g PO BID levothyroxine 25 mcg Tablet 25 mcg PO QAM Qty: 30 0RF thiamine HCl (vitamin B1) 100 mg tablet 100 mg PO DAILY lorazepam 0.5 mg tablet 0.5 - 1 mg PO TID pantoprazole 40 mg tablet,delayed release (DR/EC) 40 mg PO DAILY trazodone 50 mg tablet 50 - 100 mg PO BEDTIME Discharge Orders: Discharge Order (Routine); Ordered 09/09/23 Ordered By: Michael Thibodeaux Referrals: Lucy Dean PA [Primary Care Provider] - 4-7 days Patient Instructions: Diverticulitis (GEN), Iron Rich Diet (GEN), Iron Deficiency Anemia (GEN), Opioid Safety Activity Restrictions/Additional Instructions: Follow-up with your primary doctor for reassessment after colitis/diverticulitis. Discuss with her referral for endoscopic evaluation after you recover in about 6 weeks. Follow-up regarding stable mild dilation of extrahepatic common bile duct, consider referral for assessment by MRCP. Follow-up with your primary provider regarding anemia and low platelets for reassessment and further workup of iron deficiency anemia including with endoscopy. You are started on iron supplementation. Continue pantoprazole. Avoid any NSAIDs. Discharge Attestations Time Spent in Discharge Care*: greater than 30 min Status at Discharge: Cognitive status at discharge: cognitively intact , Behavioral status at discharge: cooperative , Quality Metrics Clinical Quality Measures [ No reported AMI, CVA or VTE this stay] Coding Level of Care Code 20183 Total time (in minutes) for Discharge: 40 Diagnoses Colitis K52.9 Anemia D64.9
[2023-09-09 16:01] VITALS: BP 104/65; PULSE 75; RESP 18; TEMP 36.5; O2SAT 95
== END 2023-09-09 16:01 | disposition home or self-care (01) ==
LOC: ER 13:27 → MEDSURG 16:39 → ER IP 09-20 07:13 → MEDSURG 09-20 07:13
PROVIDERS: Admitting Provider Internal Medicine; Emergency Provider Family Medicine; PCP Physician Assistant; Visit Provider Internal Medicine
DX: K52.9 Noninfective gastroenteritis and colitis, unspecified (principal); D50.9 Iron deficiency anemia, unspecified; E78.5 Hyperlipidemia, unspecified; I10 Essential (primary) hypertension; F10.90 Alcohol use, unspecified, uncomplicated; E03.9 Hypothyroidism, unspecified; D69.6 Thrombocytopenia, unspecified; M79.7 Fibromyalgia; Z87.891 Personal history of nicotine dependence
CPT/HCPCS: 36415; 36600; 70450; 71045; 74177; 76705; 80053; 80503; 81001; 81003; 82140; 82728; 82803; 83010; 83540; 83550; 83605; 83615; 83690; 83735; 83880; 84100; 84145; 84443; 84484; 85007; 85014; 85018; 85025; 85045; 85610; 85730; 86140; 86850; 86900; 87040; 87086; 88304; 88305; 93005; 94664; 96365; 96367; 96372; 99285; C9113; G0378; J0744; J1100; J2060; J2250; J2371; J2405; J2704; J2710; J3010; J3475; J3490; J7030; Q9967

== ENCOUNTER 2023-09-10 11:34 | Inpatient (IN) | payer MEDICARE, MEDICAID, SELFPAY ==
[2023-09-10] VITALS (9 sets, daily range): BP systolic 123–149; BP diastolic 45–88; PULSE 78–96; RESP 14–16; TEMP 36.6–37.3; O2SAT 93–99; BMI 24.6; BMI 24.4
--- NOTE | 2023-09-10 12:03 | CTR_ITS ---
PROCEDURE INFORMATION: Exam: CT Abdomen And Pelvis With Contrast Exam date and time: 09/10/2023 12:44 PM Age: 63 years old Clinical indication: Abdominal pain; Localized; Left lower quadrant (llq); Patient HX: Hospital for diverticulitis on Monday and discharged yesterday, increased abd pain, blood and stool, incont at times; Additional info: Llq abd pain TECHNIQUE: Imaging protocol: Computed tomography of the abdomen and pelvis with contrast. Radiation optimization: All CT scans at this facility use at least one of these dose optimization techniques: automated exposure control; mA and/or kV adjustment per patient size (includes targeted exams where dose is matched to clinical indication); or iterative reconstruction. Contrast material: OMNI 350; Contrast volume: 75 ml; Contrast route: INTRAVENOUS (IV); COMPARISON: CT abdomen pelvis w con* [id number] 09/06/2023 12:36 PM RADIATION DOSE METRICS: Total DLP (mGy-cm): 330.93 FINDINGS: Liver: Borderline 20 cm hepatomegaly. Gallbladder and bile ducts: Possible mild thickening of the wall of the gallbladder but there are no stones and no pericholecystic fluid. The common duct is mildly dilated, 9 mm. Pancreas: Normal. No ductal dilation. Spleen: 13 cm splenomegaly. Adrenal glands: Normal. No mass. Kidneys and ureters: Normal. No hydronephrosis. Stomach and bowel: Unremarkable. No obstruction. No mucosal thickening. Appendix: No evidence of appendicitis. Intraperitoneal space: Unremarkable. No free air. No significant fluid collection. Vasculature: Unremarkable. No abdominal aortic aneurysm. Lymph nodes: Unremarkable. No enlarged lymph nodes. Urinary bladder: Unremarkable as visualized. Reproductive: Unremarkable as visualized. Bones/joints: Prior lumbar surgery. Soft tissues: Unremarkable. CT/CT abdomen pelvis w con* [id number] IMPRESSION: Question mild gallbladder wall thickening without stones. Mild dilatation of the common duct. Ultrasound recommended for further evaluation.
--- NOTE | 2023-09-10 12:04 | ED_ITS ---
HPI - Abdominal Pain 2 General: Chief Complaint: Abdominal Pain Stated Complaint: abd pain/dizzy Time Seen by Provider: 09/10/23 12:03 History of Present Illness: 63-year-old female presents to the emerg ency department via POV secondary to left lower quadrant abdominal pain. She states she was initially admitted to the hospital on Monday and then discharged yesterday after receiving treatment for diverticulitis. She states she had increased abdominal pain and increased blood in her stool since discharge. She states she has intermittent abdominal cramping that is a 8 out of 10. Associated Symptoms: Reports hematochezia Review of Systems 2 General: Reports: 10 or more systems reviewed and unremarkable except in HPI and below GI: Reports: abdominal pain and hematochezia PFSH ED 2 PFSH: Medical History Helicobacter pylori gastritis Recurrent pneumonia Hypersomnolence Lumbar post-laminectomy syndrome Cervical post-laminectomy syndrome Peripheral neuropathy Hypothyroidism Restless leg syndrome Anxiety Degenerative arthritis Fibromyalgia Hyperlipidemia Hypertension Waldenstrom macroglobulinemia Lumbar radiculopathy Carpal tunnel syndrome, bilateral upper limbs Surgical History Hx of colonoscopy History of esophagogastroduodenoscopy (EGD) H/O section x 2 History of facial surgery 1991 Following trauma, x3 History of shoulder surgery Right rotator cuff repair x 2 History of cervical spinal surgery [facility]: 02/14/2017 Posterolateral cervical fusion C2-C6 03/02/2016 C3-C4 ACDFF, removal of prior anterior cervical plate, C4-C5 2004 C4-C5 ACDFF All operative reports scanned to chart History of lumbar surgery 2013, 2011 and 2010 [facility]: Lumbar fusion/fixation Family History Mother Lung disease Father Myocardial infarction Hypertension Diabetes Social History Smoking and tobacco/nicotine status: former use of tobacco/nicotine (quit 2006, smoked 30+ years) Quit status (tobacco/nicotine): has quit using Year quit tobacco: 2006 Former quit date comment: 1 ppd x 35 years Alcohol intake: current Alcohol intake frequency: few times a week Substance/Drug Use: never Household members: significant other Marital status: Life Partner Current occupational status: disabled Physical Exam 2 Narrative: EXAM NARRATIVE: Constitutional: the patient appears well nourished and with normal development. Vital signs reviewed as documented. HENMT: Normocephalic, atraumatic. Extermal ears with normal appearance without drainage. Nose without drainage, normal appearance. Mucus membranes moist. Neck is supple, No jugular venous distension, trachea is midline, no appreciable carotid bruits. No lymphadenopathy. No meningeal signs. Flexion, extension and lateral rotation is without pain. Eyes: Pupils are equal, round, reactive to light and accommodation. No scleral icterus. Extra-ocular movement are intact. Thorax is symmetrical and with equal rise and fall with respirations. Resp: Lungs are clear to auscultation. No wheezes, rales, crackles or ronchi at present. Cardio: Regular rate and rhythm. Positive S1, S2. No appreciable murmurs, rubs or gallops. GI: Abdominal exam reveals normal bowel sounds to all quadrants. No organomegaly. No obvious palpable masses noted. No hepatomegally appreciated. Soft, moderately tender to palpation to the left upper and left lower quadrant Extremity: Extremities are non-edematous and both femoral and pedal pulses are 2+ and equal bilaterally. Moves all extremities well, sensation in all extremities. Neuro: Alert and oriented x4, person, place, time and situation. Cranial nerves II through XII are grossly intact, there is no focal neurological deficits that I can appreciate at present. Motor strength in the upper and lower extremities are equal and bilateral 5/5. Psych: Cooperative, calm, normal thought process, appropriate judgment. Skin: No lesions, rashes. No gross abnormalities noted. Back: Symmetrical, no obvious deformity, No CVA tenderness Course 2 Vital Signs: Vital signs: Vital Signs Temperature 97.9 F 09/10/23 11:41 Pulse Rate 82 09/10/23 14:00 Respiratory Rate 14 09/10/23 11:41 Blood Pressure 149/88 09/10/23 11:41 Pulse Oximetry 96 09/10/23 14:00 Oxygen Delivery Me thod Room Air 09/10/23 14:00 MDM - Abdominal Pain Medical Decision Making Physical exam completed and documented, I will obtain laboratory evaluation to include a CBC, CMP, lipase, urinalysis, and a CT scan of the patient's abdomen pelvis to evaluate for possible differential diagnosis of bowel obstruction, incarcerated hernia, abdominal wall strain, abdominal wall hematoma, constipation. I will provide the patient IV access and IV fluid as well as a CT scan abdomen pelvis with contrast for evaluation for possible colitis, acute appendicitis, diverticulitis, perforation. Medical Records I reviewed the patient's medical records. Lab Data I reviewed the patient's lab results. 09/10/23 13:05 09/10/23 13:05 Labs/Radiology: Radiology Impressions Abdomen/Pelvis CT 09/10/23 12:03 IMPRESSION: Question mild gallbladder wall thickening without stones. Mild dilatation of the common duct. Ultrasound recommended for further evaluation. Laboratory Results WBC 10.25 10^3/uL (3.29-11.43) 09/10/23 13:05 RBC 2.93 10^6/uL (3.85-5.65) L 09/10/23 13:05 Hgb 8.90 g/dL (11.27-16.99) L 09/10/23 13:05 Hct 28.9 % (36-47) L 09/10/23 13:05 MCV 98.6 fl (85-98) H 09/10/23 13:05 MCH 30.4 pg (27-33) 09/10/23 13:05 MCHC 30.8 g/dL (30-55) 09/10/23 13:05 RDW 14.3 % (12.1-15.1) 09/10/23 13:05 Plt Count 106 10^3/cmm (157-399) L 09/10/23 13:05 MPV 9.0 fL (7.4-10.4) 09/10/23 13:05 Neut % (Auto) 29.0 % 09/10/23 13:05 Lymph % (Auto) 50.5 % 09/10/23 13:05 [place] % (Auto) 17.7 % 09/10/23 13:05 Eos % (Auto) 1.3 % 09/10/23 13:05 Baso % (Auto) 0.5 % 09/10/23 13:05 Neut # (Auto) 2.98 10^3/uL (1.8-7.7) 09/10/23 13:05 Lymph # (Auto) 5.2 10^3/uL (0.8-4.8) H 09/10/23 13:05 [place] # (Auto) 1.8 10^3/uL (0.2-0.9) H 09/10/23 13:05 Eos # (Auto) 0.1 10^3/uL (0.0-0.8) 09/10/23 13:05 Baso # (Auto) 0.1 10^3/uL (0.0-0.1) 09/10/23 13:05 Nucleated RBC % (auto) 0 % 09/10/23 13:05 Nucleated RBCs # 0.0 /100WBC 09/10/23 13:05 Sodium 133 mmol/L (136-145) L 09/10/23 13:05 Potassium 4.2 mmol/L (3.5-5.1) 09/10/23 13:05 Chloride 102 mmol/L (98-107) 09/10/23 13:05 Carbon Dioxide 22 mmol/L (22-29) 09/10/23 13:05 Anion Gap 13.2 (5-19) 09/10/23 13:05 BUN 5 mg/dL (8-23) L 09/10/23 13:05 Creatinine 1.0 mg/dL (0.5-0.9) H 09/10/23 13:05 GFR Calculation 56.2 mL/min (90-130) L 09/10/23 13:05 Glucose 90 mg/dL (65-115) 09/10/23 13:05 Calculated Osmolality 273 mOsm/kg (285-295) L 09/10/23 13:05 Lactic Acid 1.3 mmol/L (0.5-2.2) 09/10/23 13:05 Calcium 9.0 mg/dL (8.5-10.5) 09/10/23 13:05 Total Bilirubin 0.3 mg/dL (0.15-1.2) 09/10/23 13:05 AST 53 U/L (0-32) H 09/10/23 13:05 ALT 18 U/L (0-33) 09/10/23 13:05 Alkaline Phosphatase 68 U/L (35-105) 09/10/23 13:05 Total Protein 7.2 g/dL (6.6-8.7) 09/10/23 13:05 Albumin 3.2 g/dL (3.5-5.2) L 09/10/23 13:05 Globulin 4.0 g/dL (1.3-4.6) 09/10/23 13:05 Lipase 34 U/L (13-60) 09/10/23 13:05 Procalcitonin 0.05 ng/mL (0-0.5) 09/10/23 13:05 All radiology interpretation(s) finalized by discharge Discharge Plan Discharge Patient Disposition: Admitted As Inpatient Clinical Impression: Abdominal pain, GI (gastrointestinal bleed) Condition: Stable Prescriptions: No Action (DME) Seated walker See Rx Instructions .Route .MEDSUPPLY Qty: 1 0RF Rx Instructions: As directed folic acid 1 mg tablet 1 mg PO QAM acetaminophen-codeine 300-30 mg tablet 1 tab PO Q4H PRN (Reason: pain) Qty: 30 0RF gabapentin 300 mg capsule See Rx Instructions .ROUTE .COMPLEX Qty: 270 3RF Dose Instruction: TAKE ONE CAPSULE BY MOUTH IN THE MORNING AND THEN TAKE TWO CAPSULES BY MOUTH IN THE EVENING Rx Instructions: TAKE ONE CAPSULE BY MOUTH IN THE MORNING AND THEN TAKE TWO CAPSULES BY MOUTH IN THE EVENING atorvastatin [Lipitor] 20 mg Tablet 20 mg PO QPM ropinirole 0.25 mg Tablet 0.25 - 0.5 mg PO BEDTIME allopurinol 300 mg Tablet 300 mg PO QAM cyclobenzaprine 10 mg Tablet See Rx Instructions .ROUTE .COMPLEX Rx Instructions: 10 mg orally qam and 20mg po bedtime ascorbic acid (vitamin C) [Vitamin C] 500 mg Tablet 500 mg PO BID calcium carbonate-vitamin D3 [Calcium 500 + D] 500 mg(1,250mg) -200 unit Tablet See Rx Instructions .ROUTE .COMPLEX Rx Instructions: 1 tab orally in the morning and 2 tabs orally in the evening sucralfate [Carafate] 1 gram Tablet 1 g PO BID levothyroxine 25 mcg Tablet 25 mcg PO QAM Qty: 30 0RF thiamine HCl (vitamin B1) 100 mg tablet 100 mg PO QAM lorazepam 0.5 mg tablet 0.5 - 1.5 mg PO BEDTIME pantoprazole 40 mg tablet,delayed release (DR/EC) 40 mg PO QAM trazodone 50 mg tablet 25 - 50 mg PO BEDTIME ciprofloxacin HCl 500 mg tablet 500 mg PO BID Qty: 12 0RF Rx Instructions: not started taking as of 09/10/23 metronidazole 500 mg tablet 500 mg PO TID Qty: 18 0RF Rx Instructions: not started taking as of 09/10/23 ferrous sulfate [iron] 325 mg (65 mg iron) tablet 325 mg PO EVERY OTHER DAY Qty: 90 0RF Rx Instructions: not started taking as of 09/10/23 metoprolol tartrate 50 mg tablet 50 mg PO BID potassium chloride 20 mEq tablet extended release 20 meq PO QAM Referrals: Lucy Dean PA [Primary Care Provider] - Patient Instructions: Abdominal Pain (ED) Coding Level of Care Code ED [employer]print [employer] for Luis Walden
--- NOTE | 2023-09-10 12:07 | PC.PHAR ---
pt states she takes care of her own medications-pt states she has a spiriva and wixela inhaler but doesnt use anymore states not used in 6 months or so-pt states she has not started taking the medications she was discharged with on 09/09/23 cipro 500mg bid,iron 325mg eod and metronidazole 500mg tid-notes are made in the pharmacy comments
[2023-09-10] MEDS: iohexol 350 mg/mL 500 mL Btl (per mL) IV (12:48)
[2023-09-10 13:35] LABS: Basophils # 0.1 10^3/uL (0.0-0.1); Basophils % 0.5 %; Eosinophils # 0.1 10^3/uL (0.0-0.8); Eosinophils % 1.3 %; Hematocrit 28.9 % (36-47); Lymphocytes # 5.2 10^3/uL (0.8-4.8); Lymphocytes % 50.5 %; Mean Corpuscular HGB Conc 30.8 g/dL (30-55); Mean Corpuscular Hemoglobin 30.4 pg (27-33); Mean Corpuscular Volume 98.6 fl (85-98); Monocytes # 1.8 10^3/uL (0.2-0.9); Monocytes % 17.7 %; Neutrophils # 2.98 10^3/uL (1.8-7.7); Nucleated Red Blood Cells % 0 %; Platelet Count 106 10^3/cmm (157-399); Red Blood Count 2.93 10^6/uL (3.85-5.65); Red Cell Distribution Width 14.3 % (12.1-15.1); White Blood Count 10.25 10^3/uL (3.29-11.43)
[2023-09-10 13:50] LABS: Slide Review Slide Review Perform
[2023-09-10 13:53] LABS: Lactic Sepsis W/Reflex 1.3 mmol/L (0.5-2.2)
[2023-09-10 13:55] LABS: Alanine Aminotransferase 18 U/L (0-33); Albumin Level 3.2 g/dL (3.5-5.2); Alkaline Phosphatase 68 U/L (35-105); Anion Gap 13.2 (5-19); Aspartate Amino Transferase 53 U/L (0-32); Blood Urea Nitrogen 5 mg/dL (8-23); Carbon Dioxide 22 mmol/L (22-29); Chloride 102 mmol/L (98-107); Creatinine Clr Calc Pharmacy 50.9571; Glomerular Filtration Rate 56.2 mL/min (90-130); Glucose 90 mg/dL (65-115); Lipase 34 U/L (13-60); Osmolality Calculated 273 mOsm/kg (285-295); Potassium 4.2 mmol/L (3.5-5.1); Sodium 133 mmol/L (136-145); Total Bilirubin 0.3 mg/dL (0.15-1.2); Total Protein 7.2 g/dL (6.6-8.7)
[2023-09-10 14:00] LABS: Procalcitonin 0.05 ng/mL (0-0.5)
--- NOTE | 2023-09-10 15:54 | P.HP_ITS ---
Providers/Chief Complaint 2 Primary Care Provider: Lucy Dean Chief Complaint: abd pain/dizzy History of Present Illness Yulisa Kinney is a 63 year old female with a past medical history of Waldenstr?m's macroglobulinemia, history of hypothyroidism, degenerative arthritis, lumbar radiculopathy, hyperlipidemia hypertension, who presents [facility] to due to 2 episodes of bloody bowel movements. Patient tested that yesterday when she got home for the hospital, she went to bed, she did not have much of an appetite, but when she woke up she had 1 episode of large bowel bloody bowel movement, blood with wiping, again this morning, when she had a bowel movement, she had a bloody bowel movement blood with wiping, she tells me that it was mixed clots with bright red blood, she tells her that when she was here in the hospital she did not have any bloody or black stools, she did feel a bit lightheaded, and some dizziness, no syncope, no chest pain, no palpitations, no hemoptysis, no hematemesis, Review of Systems 2 Const: Denies: fever(s) Card: Denies: chest pain Resp: Denies: dyspnea GI: Reports: abdominal pain and hematochezia; Denies: nausea, vomiting or coffee ground emesis : Denies: flank pain or difficulty voiding Medications/Allergies Home Medications Medication Instructions Recorded Confirmed Last Taken Type ascorbic acid (vitamin C) 500 mg 500 mg PO BID 12/05/19 09/10/23 09/10/23 History tablet (Vitamin C) calcium carbonate 500 mg-vitamin See Rx Instructions .Route .COMPLEX 12/05/19 09/10/23 09/10/23 History D3 5 mcg (200 unit) tablet (Calcium 500 + D) cyclobenzaprine 10 mg tablet See Rx Instructions .Route .COMPLEX 12/05/19 09/10/23 09/10/23 History allopurinol 300 mg tablet 300 mg PO QAM 02/26/20 09/10/23 09/10/23 History atorvastatin 20 mg tablet (Lipitor) 20 mg PO QPM 02/26/20 09/10/23 09/09/23 History ropinirole 0.25 mg tablet 0.25 - 0.5 mg PO BEDTIME 02/26/20 09/10/23 09/09/23 History folic acid 1 mg tablet 1 mg PO QAM 05/13/20 09/10/23 09/10/23 History Seated walker #1 ea 01/27/21 09/10/23 03/17/22 Rx sucralfate 1 gram tablet (Carafate) 1 g PO BID 11/25/21 09/10/23 09/10/23 History levothyroxine 25 mcg tablet 25 mcg PO QAM #30 tabs 11/27/21 09/10/23 09/10/23 Rx acetaminophen 300 mg-codeine 30 mg 1 tab PO Q4H PRN pain #30 tabs 03/13/23 09/10/23 Unknown Rx tablet gabapentin 300 mg capsule See Rx Instructions .Route 07/31/23 09/10/23 09/10/23 Rx .COMPLEX #270 caps lorazepam 0.5 mg tablet 0.5 - 1.5 mg PO BEDTIME 09/06/23 09/10/23 09/09/23 History pantoprazole 40 mg tablet,delayed 40 mg PO QAM 09/06/23 09/10/23 09/10/23 History release thiamine HCl (vitamin B1) 100 mg 100 mg PO QAM 09/06/23 09/10/23 09/10/23 History tablet trazodone 50 mg tablet 25 - 50 mg PO BEDTIME 09/06/23 09/10/23 09/09/23 History ciprofloxacin HCl 500 mg tablet 500 mg PO BID #12 tabs 09/09/23 09/10/23 Unknown Rx ferrous sulfate 325 mg (65 mg 325 mg PO EVERY OTHER DAY #90 tabs 09/09/23 09/10/23 Unknown Rx iron) tablet (iron) metronidazole 500 mg tablet 500 mg PO TID #18 tabs 09/09/23 09/10/23 Unknown Rx metoprolol tartrate 50 mg tablet 50 mg PO BID 09/10/23 09/10/23 09/10/23 History potassium chloride 20 mEq 20 meq PO QAM 09/10/23 09/10/23 09/10/23 History tablet,extended release Allergies Allergy/AdvReac Type Severity Reaction Status Date / Time hydrocortisone Allergy Severe Elevated Verified 09/10/23 11:40 [From Cortizone-10] heart rate hydromorphone [From Dilaudid] Allergy Severe Hallucinati Verified 09/10/23 11:40 ons meperidine [From Demerol] Allergy Severe Excessive Verified 09/10/23 11:40 vomitting morphine Allergy Severe Heart rate Verified 09/10/23 11:40 drops cortisone Allergy Unknown headache Verified 09/10/23 11:40 diphenhydramine Allergy ADR/ALGY-Pa Verified 09/10/23 11:40 [From Benadryl] lpitations haloperidol [From Haldol] Allergy difficulty Verified 09/10/23 11:40 breathing PFSH Acute 2 PFSH: Medical History Helicobacter pylori gastritis Recurrent pneumonia Hypersomnolence Lumbar post-laminectomy syndrome Cervical post-laminectomy syndrome Peripheral neuropathy Hypothyroidism Restless leg syndrome Anxiety Degenerative arthritis Fibromyalgia Hyperlipidemia Hypertension Waldenstrom macroglobulinemia Lumbar radiculopathy Carpal tunnel syndrome, bilateral upper limbs Surgical History Hx of colonoscopy History of esophagogastroduodenoscopy (EGD) H/O section x 2 History of facial surgery 1991 Following trauma, x3 History of shoulder surgery Right rotator cuff repair x 2 History of cervical spinal surgery [facility]: 02/14/2017 Posterolateral cervical fusion C2-C6 03/02/2016 C3-C4 ACDFF, removal of prior anterior cervical plate, C4-C5 2004 C4-C5 ACDFF All operative reports scanned to chart History of lumbar surgery 2013, 2011 and 2010 [facility]: Lumbar fusion/fixation Family History Mother Lung disease Father Myocardial infarction Hypertension Diabetes Social History Smoking and tobacco/nicotine status: former use of tobacco/nicotine (quit 2006, smoked 30+ years) Quit status (tobacco/nicotine): has quit using Year quit tobacco: 2006 Former quit date comment: 1 ppd x 35 years Alcohol intake: current Alcohol intake frequency: few times a week Substance/Drug Use: never Household members: significant other Marital status: Life Partner Current occupational status: disabled Vitals/I&O/Wt Last Vital Signs Temp 97.9 F 09/10/23 11:41 Pulse 82 09/10/23 14:00 Resp 14 09/10/23 11:41 BP 149/88 09/10/23 11:41 Pulse Ox 96 09/10/23 14:00 O2 Del Method Room Air 09/10/23 14:00 Weight last 48 hrs Weight 55.338 kg Physical Exam 2 Const: COMMON NORMALS: no acute distress and patient oriented x3 HENMT: COMMON NORMALS: normocephalic HEAD & SCALP: normocephalic Eye: COMMON NORMALS: Equal, round and reactive pupils present Neck/C-Spine: COMMON NORMALS: no JVD Lymph: LYMPHATIC: no lymphadenopathy noted Resp: COMMON NORMALS: normal respiratory effort, No retractions, No use of accessory muscles and clear to auscultation bilaterally AUSCULTATION: clear to auscultation bilaterally Cardio: COMMON NORMALS: no JVD, regular rate, regular rhythm, S1 normal heart sound present and S2 normal heart sound present RATE: regular rate RHYTHM: regular rhythm HEART SOUNDS: S1 normal heart sound present and S2 normal heart sound present GI: COMMON NORMALS: Normal to inspection, nondistended, normoactive bowel sounds present, Soft to palpation and non-tender Extremity: COMMON NORMALS: no pedal edema Neuro: COMMON NORMALS: patient oriented x3, CN's II-XII intact bilaterally, moves all extremities and no focal motor deficits Psych: COMMON NORMALS: mental status grossly normal Data 09/10/23 13:05 09/10/23 13:05 A&P Assessment and plan (1) GI (gastrointestinal bleed): Qualifiers: GI bleed type/associated pathology: unspecified gastrointestinal hemorrhage type Qualified Code(s): K92.2 - Gastrointestinal hemorrhage, unspecified (2) Abdominal pain: Qualifiers: Abdominal location: left lower quadrant Qualified Code(s): R10.32 - Left lower quadrant pain (3) Colitis: Plan GI bleed, ? Hemoglobin 8.9, during last hospital admission did not show evidence of iron deficiency ? Plan ? Monitor hemoglobin every 6 hours, ? Keep n.p.o., IV fluids, ? Avoid blood thinners, - General surgery consulted, Colitis ? Continue Cipro and Flagyl Hypothyroidism, continue levothyroxine History of Waldenstr?m's macroglobulinemia Anemia, history of Waldenstr?m's macroglobulinemia, evidence of iron deficiency anemia Full code, ? SCDs for DVT prophylaxis, anticoagulation relatively contraindicated given GI bleed Attestations 2 Medical Necessity Statement*: Patient requires hospitalization, for colitis, GI bleed, inpatient, greater than 2 midnights Diagnoses GI (gastrointestinal bleed) K92.2 GI bleed type/associated pathology: unspecified gastrointestinal hemorrhage type Abdominal pain R10.32 Abdominal location: left lower quadrant Colitis K52.9
--- NOTE | 2023-09-10 16:27 | USR_ITS ---
PROCEDURE INFORMATION: Exam: US Duplex Artery or Vein of the Abdominal and/or Reproductive Organs, Limited Liver Exam date and time: 09/10/2023 6:50 PM Clinical indication: Abdominal pain; Generalized; Additional info: Ruq pain TECHNIQUE: Imaging protocol: Real-time duplex ultrasound scan of the arterial or venous flow with color Doppler flow and spectral waveform analysis with image documentation. Limited Duplex exam focused on the liver and portal venous system. Duplex exam was performed to evaluate for vascular conditions. COMPARISON: No relevant prior studies available. FINDINGS: Portal venous: Patent. Normal waveforms. Normal hepatopetal (towards the liver) flow. Hepatic artery: Not interrogated. PROCEDURE INFORMATION: Exam: US Abdomen, Limited; Right Upper Quadrant Exam date and time: 09/10/2023 6:50 PM Age: 63 years old Clinical indication: Abdominal pain; Generalized; Additional info: Ruq pain TECHNIQUE: Imaging protocol: Real time ultrasound of the abdomen with image documentation. Limited exam focused on the right upper quadrant. COMPARISON: 1. US abdomen limited [id number] 04/06/2021 10:[address] abdomen pelvis w con* [id number] 09/10/2023 12:44 PM FINDINGS: Liver: Normal. No masses. Gallbladder: Mild layering sludge. No gallstones. Mild circumferential gallbladder wall thickening measuring just over 3 mm. Biliary ducts: Normal. No stones. No dilation. Visualized common duct measures 4 mm in diameter. Pancreas: Visualized pancreas is unremarkable. Right kidney: Normal. No mass. No hydronephrosis. Measures 9.5 cm in length. Inferior vena cava: Interrogated aorta and IVC show normal caliber. US/US gall bladder [id number] IMPRESSION: Unremarkable duplex of the portal vein. IMPRESSION: Mild gallbladder sludge and wall thickening.
[2023-09-10 16:38] LABS: Lactic Sepsis W/Reflex 0.9 mmol/L (0.5-2.2)
--- NOTE | 2023-09-10 16:48 | P.CONIM_ITS ---
Providers/Reason For Consult 2 Consulting Physician/Specialty*: Denies any W. DO Curtis/General surgery Reason for Consult*: Abdominal pain, GI bleed Primary Care Provider: Lucy Dean History of Present Illness History of Present Illness Yulisa Kinney is a 63 year old female who is recent hospital for an episode of uncomplicated diverticulitis. She is discharged home and then came back the next day after having a bloody bowel movement. She reports that the stool looked like a normal formed bowel movement with maroon/black leeches stuck to it. She reports that her abdominal pain is all over but mostly in the right upper quadrant and radiates to her back. She is nontender in the left lower quadrant on exam. Eating makes pain worse. Nothing seems to make the pain better. She reports nausea but denies any emesis. She reports that she has had pain like this intermittently for a couple of years now. CT done on this admission does not show any diverticulitis but does show some possible gallbladder wall thickening. She has a history of H. pylori infection diagnosed in March 2022. Review of Systems 2 General: Reports: 10 or more systems reviewed and unremarkable except in HPI and below Medications/Allergies Home Medications Medication Instructions Recorded Confirmed Last Taken Type ascorbic acid (vitamin C) 500 mg 500 mg PO BID 12/05/19 09/10/23 09/10/23 History tablet (Vitamin C) calcium carbonate 500 mg-vitamin See Rx Instructions .Route .COMPLEX 12/05/19 09/10/23 09/10/23 History D3 5 mcg (200 unit) tablet (Calcium 500 + D) cyclobenzaprine 10 mg tablet See Rx Instructions .Route .COMPLEX 12/05/19 09/10/23 09/10/23 History allopurinol 300 mg tablet 300 mg PO QAM 02/26/20 09/10/23 09/10/23 History atorvastatin 20 mg tablet (Lipitor) 20 mg PO QPM 02/26/20 09/10/23 09/09/23 History ropinirole 0.25 mg tablet 0.25 - 0.5 mg PO BEDTIME 02/26/20 09/10/23 09/09/23 History folic acid 1 mg tablet 1 mg PO QAM 05/13/20 09/10/23 09/10/23 History Seated walker #1 ea 01/27/21 09/10/23 03/17/22 Rx sucralfate 1 gram tablet (Carafate) 1 g PO BID 11/25/21 09/10/23 09/10/23 History levothyroxine 25 mcg tablet 25 mcg PO QAM #30 tabs 11/27/21 09/10/23 09/10/23 Rx acetaminophen 300 mg-codeine 30 mg 1 tab PO Q4H PRN pain #30 tabs 03/13/23 09/10/23 Unknown Rx tablet gabapentin 300 mg capsule See Rx Instructions .Route 07/31/23 09/10/23 09/10/23 Rx .COMPLEX #270 caps lorazepam 0.5 mg tablet 0.5 - 1.5 mg PO BEDTIME 09/06/23 09/10/23 09/09/23 History pantoprazole 40 mg tablet,delayed 40 mg PO QAM 09/06/23 09/10/23 09/10/23 History release thiamine HCl (vitamin B1) 100 mg 100 mg PO QAM 09/06/23 09/10/23 09/10/23 History tablet trazodone 50 mg tablet 25 - 50 mg PO BEDTIME 09/06/23 09/10/23 09/09/23 History ciprofloxacin HCl 500 mg tablet 500 mg PO BID #12 tabs 09/09/23 09/10/23 Unknown Rx ferrous sulfate 325 mg (65 mg 325 mg PO EVERY OTHER DAY #90 tabs 09/09/23 09/10/23 Unknown Rx iron) tablet (iron) metronidazole 500 mg tablet 500 mg PO TID #18 tabs 09/09/23 09/10/23 Unknown Rx metoprolol tartrate 50 mg tablet 50 mg PO BID 09/10/23 09/10/23 09/10/23 History potassium chloride 20 mEq 20 meq PO QAM 09/10/23 09/10/23 09/10/23 History tablet,extended release Allergies Allergy/AdvReac Type Severity Reaction Status Date / Time hydrocortisone Allergy Severe Elevated Verified 09/10/23 11:40 [From Cortizone-10] heart rate hydromorphone [From Dilaudid] Allergy Severe Hallucinati Verified 09/10/23 11:40 ons meperidine [From Demerol] Allergy Severe Excessive Verified 09/10/23 11:40 vomitting morphine Allergy Severe Heart rate Verified 09/10/23 11:40 drops cortisone Allergy Unknown headache Verified 09/10/23 11:40 diphenhydramine Allergy ADR/ALGY-Pa Verified 09/10/23 11:40 [From Benadryl] lpitations haloperidol [From Haldol] Allergy difficulty Verified 09/10/23 11:40 breathing PFSH Acute 2 PFSH: Medical History Helicobacter pylori gastritis Recurrent pneumonia Hypersomnolence Lumbar post-laminectomy syndrome Cervical post-laminectomy syndrome Peripheral neuropathy Hypothyroidism Restless leg syndrome Anxiety Degenerative arthritis Fibromyalgia Hyperlipidemia Hypertension Waldenstrom macroglobulinemia Lumbar radiculopathy Carpal tunnel syndrome, bilateral upper limbs Surgical History Hx of colonoscopy History of esophagogastroduodenoscopy (EGD) H/O section x 2 History of facial surgery 1992 Following trauma, x3 History of shoulder surgery Right rotator cuff repair x 2 History of cervical spinal surgery [facility]: 02/14/2017 Posterolateral cervical fusion C2-C6 03/02/2016 C3-C4 ACDFF, removal of prior anterior cervical plate, C4-C5 2004 C4-C5 ACDFF All operative reports scanned to chart History of lumbar surgery 2013, 2011 and 2010 [facility]: Lumbar fusion/fixation Family History Mother Lung disease Father Myocardial infarction Hypertension Diabetes Social History Smoking and tobacco/nicotine status: former use of tobacco/nicotine (quit 2006, smoked 30+ years) Quit status (tobacco/nicotine): has quit using Year quit tobacco: 2006 Former quit date comment: 1 ppd x 35 years Alcohol intake: current Alcohol intake frequency: few times a week Substance/Drug Use: never Household members: significant other Marital status: Life Partner Current occupational status: disabled Vitals/I&O/Wt Last Vital Signs Temp 97.9 F 09/10/23 11:41 Pulse 82 09/10/23 14:00 Resp 14 09/10/23 11:41 BP 149/88 09/10/23 11:41 Pulse Ox 96 09/10/23 14:00 O2 Del Method Room Air 09/10/23 14:00 Weight last 48 hrs Weight 122 lb Physical Exam 2 Narrative: General : Patient is well developed , no acute distress, oriented x3 Head : Normal cephalic, a-traumatic. Ears : Pinnae and external canal are normal. Hearing is normal. Eyes : PERRLA, Sclera and injection are normal. No conjunctival discharge. Nose : Mucous membranes are without erythema. Throat : buccal mucosa is normal, gums are without significant recession or hypertrophy. Lungs : Equal chest rise bilaterally, no use of accessory muscles, trachea is midline. Cor : Rate and rhythm are normal. Abdomen : Soft, ND, tender to palpation right upper quadrant, negative Stewart's no g/r/m Extremities : No edema, no cyanosis or clubbing, dorsalis pedis pulses are present bilaterally, non-tender to palpation of calves. Upper extremities are normal bilaterally. Back : non-tender to palpation, no CVA tenderness. Neuro : CN II - XII intact, Upper and lower extremities have equal and full strength Data 09/11/23 05:30 09/11/23 05:30 A&P Assessment and plan (1) Abdominal pain: Qualifiers: Abdominal location: left lower quadrant Qualified Code(s): R10.32 - Left lower quadrant pain (2) GI (gastrointestinal bleed): Qualifiers: GI bleed type/associated pathology: unspecified gastrointestinal hemorrhage type Qualified Code(s): K92.2 - Gastrointestinal hemorrhage, unspecified Plan Patient was recently diagnosed with acute diverticulitis and was treated in the hospital. She was discharged home and then came back the next day with right upper quadrant abdominal pain and melena. Gallbladder ultrasound Her symptoms are consistent with cholecystitis Due to her melena, she would also benefit from an EGD. Further recommendations pending results of ultrasound. Medical management per hospitalist Coding Level of Care Code 25476 Diagnoses Abdominal pain R10.32 Abdominal location: left lower quadrant GI (gastrointestinal bleed) K92.2 GI bleed type/associated pathology: unspecified gastrointestinal hemorrhage type
--- OUTSIDE RECORDS SUMMARY | 2023-09-10 18:28 | XMS_ITS | Patient Health Record ---
Author Name Unknown Organization [facility] Address [address] [place] [address] Care Team Providers Care [employer] Superintendent Name Role Phone Lucy Dean Primary Care Provider Esteban Monzon Unavailable [phone] Rosario Palafox Unavailable Unavailable ALLERGIES Allergen (clinical drug ingredient) Drug/Non Drug Allergy documented on EMR Reaction Allergy Type Onset Date Status meperidine Demerol Unknown Drug Allergy Active hydromorphone Dilaudid Unknown Drug Allergy Act ben Haldol Unknown Drug Allergy Active corticosteroid and/or corticosteroid derivative (FN) Corticosteroids Unknown Drug Allergy Active morphine Morphine Unknown Drug Allergy Active REASON FOR REFERRAL No Information MEDICATIONS Medication SIG (Take, Route, Frequency, Duration) Notes Start Date End Date Status hydroCHLOROthiazide 12.5 MG 1 capsule in the morning Orally Once a day Active Imbruvica 140 MG 1 tablet Orally Once a day Active Folic Acid 1 MG 1 tablet Orally Once a day Active Biotin 5 MG 1 capsule Orally Onc e a day Active Allopurinol 300 MG 1 tablet Orally Once a day Active Atorvastatin Calcium 20 MG 1 tablet Oral ly Once a day Active LORazepam 0.5 MG 1 tablet at bedtime as needed Orally Once a day Active traZODone HCl 50 MG 1 tablet at bedtime as needed Orally Once a day Active rOPINIRole HCl 0.25 MG 1 tablet 1 to 3 h ours before bedtime Orally Once a day Active Iron Active Cyclobenzaprine HCl 10 MG 1 tablet at be dtime as needed Orally Once a day Active Prochlorperazine Act ben Thiamine HCl 100 MG 1 tablet Orally Once a day Active Vitamin C 500 MG as directed Orally Active Metoprolol Tartrate 25 MG 1 tablet with food Orally Twice a day Active Stool Softener Activ e Pantoprazole Sodium 40 MG 1 tablet Orall y Once a day Active Calcium 600 MG 1 tablet with meals Orally Twice a day Active Levothyroxine Sodium 50 MCG 1 tablet in the morning on an empty stomach Orally Once a day Active Multivitamin Adult - as directed Orally Active Loperamide HCl 2 MG 1 capsule as needed Orally Four times a day Active SOCIAL HISTORY Tobacco Use: Social History Observation Description Date Details (start date - stop date) Former Smoker NA - NA Sex Assigned At : Social History Observation Description Sex Assigned At Unknown Tobacco Use/Smoking Question Answer Notes Are you a former smoker How long has it been since you last smoked? > 10 years Alcohol Screen (Audit-C) Question Answer Notes Did you have a drink contain ing alcohol in the past year? Yes How often did you have a dri nk containing alcohol in the past year? 2 to 4 times a month (2 points) Points 2 Interpretation Negative PHQ-9 Question Answer Notes Little interest or pleasure in doing things Near ly every day Feeling down, depressed, or hopeless Not at all Trouble falling or staying asleep, or sleeping t oo much Nearly every day Feeling tired or having little energy Nearly duc ry day Poor appetite or overeating Nearly every day Feeling bad about yourself, or that you are a failure, or have let yourself or your family down Not at all Trouble concentrating on thi ngs, such as reading the newspaper or watching television Several days Moving or speaking so slowly that other people could have noticed. Or the opposite ? 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) Active confirmed [id number] PLAN OF TREATMENT No Information Insurance Providers Payer Name Payer Address Payer Phone Subscriber Number Group Number Insured Name Patient Relationship to Insured Coverage Start Date Coverage End Date [facility] [address] [address] [place] [address] [id number] Yulisa Kinney Self - patient is the insured [place] [address] [place] [address] [id number] Kinney, Yulisa Self - patient is the insured MEDICAL (GENERAL) HISTORY Medical History History ICD Code measles, mumps, chicken pox arthritis anemia bladder infections cancer back pain bronchitis fibromyalgia osteoporosis Surgical History Surgery Date(Month/Year) section right shoulder replacement 2000 3 facial reconstruction [id number] cervical surgery 2003,2015,2017 lumbar fusion 2010,2012 right toe surgery 2018 Hospitalization History Reason Date(Month/Year) inpatient childbirth surgery list
[2023-09-10 20:15] LABS: Hematocrit 31.3 % (36-47)
[2023-09-10] MEDS: ropinirole 0.25 mg Tablet PO (20:42)
[2023-09-10] MEDS: metoprolol tartrate 50 mg Tablet PO (20:42)
[2023-09-10] MEDS: pantoprazole 40 mg SDV IVP (20:44)
[2023-09-10 20:45] LABS: Thyroid Stimulating Hormone 6.56 uIU/mL (0.27-4.20)
[2023-09-10] MEDS: sodium chloride 0.9% 1,000 ML 75 ML IV (20:51)
[2023-09-10] MEDS: ciprofloxacin 400 MG/200 ML PREMIX 200 MG IV (20:51)
[2023-09-10] MEDS: metroNIDAZOLE IV 500 MG/100 ML PREMIX 100 MG IV (22:18)
[2023-09-11] VITALS (19 sets, daily range): BP systolic 103–148; BP diastolic 59–86; PULSE 72–92; RESP 12–19; TEMP 36.2–36.9; O2SAT 92–100
[2023-09-11 03:21] LABS: Urine Appearance Hazy (CLEAR); Urine Color Yellow (Yellow); pH Urine 6 (5-7)
[2023-09-11 03:22] LABS: Add Urine Microscopic? YES; Bilirubin Urine Neg (Negative); Blood Urine Neg (Negative); Glucose Urine UA Norm (Normal); Ketones Urine Negative (Negative); Leukocyte Esterase Urine 2+ (Negative); Nitrate Urine Negative (Negative); Protein Urine Neg (Negative); Urobilinogen Urine Norm (Negative)
[2023-09-11 03:25] LABS: Add Urine Culture? Yes; Bacteria Urine TRACE /hpf; Squamous Epithelial Cell Urine 0-4 /hpf (0-5); WBC Urine 25-40 /hpf (0-5)
[2023-09-11] MEDS: sodium chloride 0.9% 1,000 ML 75 ML IV (04:16)
[2023-09-11] MEDS: metroNIDAZOLE IV 500 MG/100 ML PREMIX 100 MG IV ×3 (04:19→22:58)
--- NOTE | 2023-09-11 04:23 | PC.NURSE ---
While rounding and hanging Flagyl, pt woke up and became very agitated stating that I didn't know what I was doing and that her IV pump has been off all night. She called me an idiot and did not want me to start any of her IV medications because they are cloudy and didn't trust them. She proceeded to cuss me out so I walked out of the room to get the charge nurse. The charge nurse went and spoke to the patient and deescalated while I called the doctor. [place] ordered olanzapine in case she became more violent but the pt was able to be verbally deescalated by the charge nurse. The pt was assigned to a different nurse and will now have all medications opened in front of pt per pt request.
[2023-09-11] MEDS: levothyroxine 25 mcg Tablet PO (05:06)
[2023-09-11] MEDS: allopurinol 300 mg Tablet PO (05:07)
[2023-09-11] MEDS: folic acid 1 mg Tablet PO (05:07)
[2023-09-11] MEDS: thiamine 100 mg Tablet PO (05:07)
[2023-09-11 05:51] LABS: Basophils % 0.5 %; Eosinophils # 0.1 10^3/uL (0.0-0.8); Eosinophils % 1.6 %; Hematocrit 27.9 % (36-47); Lymphocytes # 4.3 10^3/uL (0.8-4.8); Lymphocytes % 52.7 %; Mean Corpuscular HGB Conc 31.9 g/dL (30-55); Mean Corpuscular Hemoglobin 30.4 pg (27-33); Mean Corpuscular Volume 95.2 fl (85-98); Monocytes # 1.3 10^3/uL (0.2-0.9); Monocytes % 16.5 %; Neutrophils # 2.22 10^3/uL (1.8-7.7); Neutrophils % 27.5 %; Nucleated Red Blood Cells % 0 %; Platelet Count 105 10^3/cmm (157-399); Red Blood Count 2.93 10^6/uL (3.85-5.65); Red Cell Distribution Width 14.2 % (12.1-15.1); White Blood Count 8.07 10^3/uL (3.29-11.43)
[2023-09-11 06:17] LABS: Alanine Aminotransferase 19 U/L (0-33); Albumin Level 3.2 g/dL (3.5-5.2); Alkaline Phosphatase 68 U/L (35-105); Anion Gap 15.7 (5-19); Aspartate Amino Transferase 50 U/L (0-32); Blood Urea Nitrogen 5 mg/dL (8-23); C Reactive Protein 5.9 mg/L (0.0-4.9); Calcium 8.7 mg/dL (8.5-10.5); Carbon Dioxide 20 mmol/L (22-29); Chloride 103 mmol/L (98-107); Creatinine Clr Calc Pharmacy 56.1555; Globulin 4.1 g/dL (1.3-4.6); Glomerular Filtration Rate 63.4 mL/min (90-130); Glucose 91 mg/dL (65-115); Magnesium 1.4 mg/dL (1.7-2.3); Osmolality Calculated 277 mOsm/kg (285-295); Phosphorus 2.5 mg/dL (2.5-4.5); Potassium 3.7 mmol/L (3.5-5.1); Sodium 135 mmol/L (136-145); Total Bilirubin 0.4 mg/dL (0.15-1.2); Total Protein 7.3 g/dL (6.6-8.7)
[2023-09-11 06:20] LABS: Procalcitonin 0.04 ng/mL (0-0.5)
[2023-09-11] MEDS: gabapentin 300 mg Capsule PO (08:31)
[2023-09-11] MEDS: ciprofloxacin 400 MG/200 ML PREMIX 200 MG IV ×2 (08:31→21:55)
[2023-09-11] MEDS: metoprolol tartrate 50 mg Tablet PO ×2 (08:31→16:59)
--- NOTE | 2023-09-11 09:24 | PC.NURSE ---
Pt states that she had, an awful night with hoodrats trying to make deals. She is tearful and states she is anxious. Pt is requesting something for anxiety, notified Dr. Good. One time order for Ativan 0.5mg IVP given.
[2023-09-11] MEDS: LORazepam 2 mg/mL INJ 10 mL MDV 0.5 MG IVP (09:48)
--- NOTE | 2023-09-11 11:46 | P.PN_ITS ---
Vitals/I&O/Wt Last Vital Signs Temp 97.7 F 09/11/23 11:11 Pulse 86 09/11/23 11:11 Resp 18 09/11/23 11:11 BP 126/68 09/11/23 11:11 Pulse Ox 97 09/11/23 11:11 O2 Del Method Room Air 09/11/23 11:11 09/10/23 09/11/23 09/11/23 22:59 06:59 14:59 Intake Total 206.25 / 206.25 557.5 / 763.75 200 / 200 Output Total 150 / 150 Balance 206.25 / 206.25 407.5 / 613.75 200 / 200 Weight last 48 hrs Weight 121 lb Weight 122 lb Data 09/11/23 05:30 09/11/23 05:30 A&P Assessment and plan (1) Abdominal pain: Qualifiers: Abdominal location: left lower quadrant Qualified Code(s): R10.32 - Left lower quadrant pain (2) GI (gastrointestinal bleed): Qualifiers: GI bleed type/associated pathology: unspecified gastrointestinal hemorrhage type Qualified Code(s): K92.2 - Gastrointestinal hemorrhage, unspecified (3) Cholecystitis: Plan Gallbladder ultrasound shows sludge and gallbladder wall thickening Laparoscopic cholecystectomy The risks and benefits of the procedure, including but not limited to, bleeding, infection, scar, numbness, pain, damage to surrounding structures, damage to common bile duct requiring additional surgery, conversion to an open procedure, were explained to the patient. He is understanding of the risks and wishes to proceed. I will take her tomorrow for EGD Scheduled for 1215 The risks and benefits of the procedure, including bleeding, infection, intestinal perforation requiring surgery, missed lesion were explained to the patient. The patient is understanding of the risks and wishes to proceed. Attestations 2 Medical Necessity Statement*: Per primary Coding Level of Care Code Acute Code for Chg Fwd Diagnoses Abdominal pain R10.32 Abdominal location: left lower quadrant GI (gastrointestinal bleed) K92.2 GI bleed type/associated pathology: unspecified gastrointestinal hemorrhage type Cholecystitis K81.9
--- NOTE | 2023-09-11 12:40 | P.ANESASSM_ITS ---
Pre-Anesthetic Assessment Height/Weight: Height 1.5 m Weight 54.885 kg Temp Pulse Resp BP Pulse Ox O2 Del Method 97.7 F 86 18 126/68 97 Room Air 09/11/23 11:11 09/11/23 11:11 09/11/23 11:11 09/11/23 11:11 09/11/23 11:11 09/11/23 11:11 Operation Date: 09/11/23 13:05 Proposed Procedures p Laparoscopic Cholecystectomy(Not Applicable) - Filiberto Acevedo DO Operation Date: 09/12/23 12:10 Proposed Procedures p EGD(Not Applicable) - Filiberto Acevedo DO Was Beta Emilie taken within 24 hours: Yes Was Clonidine taken within 24 hours: N/A Last intake: Intake Last Liquid Date 09/10/22 Last Solid Date 09/10/22 Social Alcohol and Tobacco Quit smoking 2006 Exam alert and oriented x 3 Airway Cervical ROM: Other Mallampati: Class III History/ROS No significant history except as noted and No significant complaints Pulmonary Chronic Obstructive Pulmonary Disease GI Gastroesophageal Reflux Disease Metabolic Hyperlipidemia and Thyroid Disease [facility] [place] Fibromyalgia, Lower Back Pain and Osteoarthritis/DJD Neuropsych Neuropathy Anesthetic Plan ASA status: 3 Anesthesia: General Risk of > 500 ml blood loss (7ml/kg in children): No Medications/Allergies Home Medications Medication Instructions Recorded Confirmed Last Taken Type ascorbic acid (vitamin C) 500 mg 500 mg PO BID 12/05/19 09/10/23 09/10/23 History tablet (Vitamin C) calcium carbonate 500 mg-vitamin See Rx Instructions .Route .COMPLEX 12/05/19 09/10/23 09/10/23 History D3 5 mcg (200 unit) tablet (Calcium 500 + D) cyclobenzaprine 10 mg tablet See Rx Instructions .Route .COMPLEX 12/05/19 09/10/23 09/10/23 History allopurinol 300 mg tablet 300 mg PO QAM 02/26/20 09/10/23 09/10/23 History atorvastatin 20 mg tablet (Lipitor) 20 mg PO QPM 02/26/20 09/10/23 09/09/23 History ropinirole 0.25 mg tablet 0.25 - 0.5 mg PO BEDTIME 02/26/20 09/10/23 09/09/23 History folic acid 1 mg tablet 1 mg PO QAM 05/13/20 09/10/23 09/10/23 History Seated walker #1 ea 01/27/21 09/10/23 03/17/22 Rx sucralfate 1 gram tablet (Carafate) 1 g PO BID 11/25/21 09/10/23 09/10/23 History levothyroxine 25 mcg tablet 25 mcg PO QAM #30 tabs 11/27/21 09/10/23 09/10/23 Rx acetaminophen 300 mg-codeine 30 mg 1 tab PO Q4H PRN pain #30 tabs 03/13/23 09/10/23 Unknown Rx tablet gabapentin 300 mg capsule See Rx Instructions .Route 07/31/23 09/10/23 09/10/23 Rx .COMPLEX #270 caps lorazepam 0.5 mg tablet 0.5 - 1.5 mg PO BEDTIME 09/06/23 09/10/23 09/09/23 History pantoprazole 40 mg tablet,delayed 40 mg PO QAM 09/06/23 09/10/23 09/10/23 History release thiamine HCl (vitamin B1) 100 mg 100 mg PO QAM 09/06/23 09/10/23 09/10/23 History tablet trazodone 50 mg tablet 25 - 50 mg PO BEDTIME 09/06/23 09/10/23 09/09/23 History ciprofloxacin HCl 500 mg tablet 500 mg PO BID #12 tabs 09/09/23 09/10/23 Unknown Rx ferrous sulfate 325 mg (65 mg 325 mg PO EVERY OTHER DAY #90 tabs 09/09/23 09/10/23 Unknown Rx iron) tablet (iron) metronidazole 500 mg tablet 500 mg PO TID #18 tabs 09/09/23 09/10/23 Unknown Rx metoprolol tartrate 50 mg tablet 50 mg PO BID 09/10/23 09/10/23 09/10/23 History potassium chloride 20 mEq 20 meq PO QAM 09/10/23 09/10/23 09/10/23 History tablet,extended release Allergies Allergy/AdvReac Type Severity Reaction Status Date / Time hydrocortisone Allergy Severe Elevated Verified 09/10/23 11:40 [From Cortizone-10] heart rate hydromorphone [From Dilaudid] Allergy Severe Hallucinati Verified 09/10/23 11:40 ons meperidine [From Demerol] Allergy Severe Excessive Verified 09/10/23 11:40 vomitting morphine Allergy Severe Heart rate Verified 09/10/23 11:40 drops cortisone Allergy Unknown headache Verified 09/10/23 11:40 diphenhydramine Allergy ADR/ALGY-Pa Verified 09/10/23 11:40 [From Benadryl] lpitations haloperidol [From Haldol] Allergy difficulty Verified 09/10/23 11:40 breathing Current Medications Generic Name Dose Route Start Last Admin Trade Name Nehemiah PRN Reason Stop Dose Admin Allopurinol 300 mg 09/11/23 06:00 09/11/23 05:07 Allopurinol 300 Mg Tablet PO 300 mg QAM ESTUARDO Administration Folic Acid 1 mg 09/11/23 06:00 09/11/23 05:07 Folic Acid 1 Mg Tablet PO 1 mg QAM ESTUARDO Administration Gabapentin 300 mg 09/11/23 06:45 09/11/23 08:31 Gabapentin 300 Mg Capsule PO 300 mg QAM ESTUARDO Administration Ciprofloxacin/Dextrose 400 mg in 200 mls @ 200 mls/hr 09/10/23 20:00 09/11/23 09:32 Cipro IV Infused Q12H ESTUARDO Infusion Protocol Metronidazole 500 mg in 100 mls @ 100 mls/hr 09/10/23 20:00 09/11/23 05:28 Flagyl Iv IV Infused Q8H ESTUARDO Infusion Protocol Sodium Chloride 1,000 mls @ 75 mls/hr 09/10/23 20:00 09/11/23 04:16 Sodium Chloride 0.9% IV 75 mls/hr .[id number] ESTUARDO Administration Levothyroxine Sodium 25 mcg 09/11/23 06:00 09/11/23 05:06 Levothyroxine 25 Mcg Tablet PO 25 mcg QAM ESTUARDO Administration Metoprolol Tartrate 50 mg 09/10/23 20:00 09/11/23 08:31 Metoprolol Tartrate 50 Mg Tablet PO 50 mg BID ESTUARDO Administration Pantoprazole Sodium 40 mg 09/10/23 20:00 09/10/23 20:44 Pantoprazole 40 Mg Sdv IVP 40 mg Q24H ESTUARDO Administration Ropinirole HCl 0.25 mg 09/10/23 21:00 09/10/23 20:42 Ropinirole 0.25 Mg Tablet PO 0.25 mg BEDTIME ESTUARDO Administration Thiamine Mononitrate 100 mg 09/11/23 06:00 09/11/23 05:07 Thiamine 100 Mg Tablet PO 100 mg QAM ESTUARDO Administration PFSH Anesthesia Medical History Helicobacter pylori gastritis Recurrent pneumonia Hypersomnolence Lumbar post-laminectomy syndrome Cervical post-laminectomy syndrome Peripheral neuropathy Hypothyroidism Restless leg syndrome Anxiety Degenerative arthritis Fibromyalgia Hyperlipidemia Hypertension Waldenstrom macroglobulinemia Lumbar radiculopathy Carpal tunnel syndrome, bilateral upper limbs Surgical History Hx of colonoscopy History of esophagogastroduodenoscopy (EGD) H/O section x 2 History of facial surgery 1992 Following trauma, x3 History of shoulder surgery Right rotator cuff repair x 2 History of cervical spinal surgery [facility]: 02/14/2017 Posterolateral cervical fusion C2-C6 03/02/2016 C3-C4 ACDFF, removal of prior anterior cervical plate, C4-C5 2004 C4-C5 ACDFF All operative reports scanned to chart History of lumbar surgery 2013, 2011 and 2010 [facility]: Lumbar fusion/fixation Family History Mother Lung disease Father Myocardial infarction Hypertension Diabetes Social History Smoking and tobacco/nicotine status: former use of tobacco/nicotine (quit 2006, smoked 30+ years) Quit status (tobacco/nicotine): has quit using Year quit tobacco: 2006 Former quit date comment: 1 ppd x 35 years Alcohol intake: current Alcohol intake frequency: few times a week Substance/Drug Use: never Household members: significant other Marital status: Life Partner Current occupational status: disabled Data Anesthesia 09/11/23 11:35 09/11/23 05:30 Short CBC 09/10/23 09/10/23 09/11/23 Range/Units 13:05 20:09 05:30 WBC 10.25 8.07 (3.29-11.43) 10^3/uL Hgb 8.90 L 9.90 L 8.90 L (11.27-16.99) g/dL Hct 28.9 L 31.3 L 27.9 L (36-47) % MCV 98.6 H 95.2 (85-98) fl Plt Count 106 L 105 L (157-399) 10^3/cmm Neut % (Auto) 29.0 27.5 % Neut # (Auto) 2.98 2.22 (1.8-7.7) 10^3/uL 09/11/23 Range/Units 11:35 WBC (3.29-11.43) 10^3/uL Hgb 9.30 L (11.27-16.99) g/dL Hct 29.0 L (36-47) % MCV (85-98) fl Plt Count (157-399) 10^3/cmm Neut % (Auto) % Neut # (Auto) (1.8-7.7) 10^3/uL BMP 09/10/23 09/11/23 13:05 05:30 Sodium 133 L 135 L Potassium 4.2 3.7 Chloride 102 103 Carbon Dioxide 22 20 L BUN 5 L 5 L Creatinine 1.0 H 0.9 Glucose 90 91 Calcium 9.0 8.7 Liver Function 09/10/23 09/11/23 Range/Units 13:05 05:30 Total Bilirubin 0.3 0.4 (0.15-1.2) mg/dL AST 53 H 50 H (0-32) U/L ALT 18 19 (0-33) U/L Alkaline Phosphatase 68 68 (35-105) U/L Albumin 3.2 L 3.2 L (3.5-5.2) g/dL Urine 09/10/23 Range/Units 00:26 Urine Color Yellow (Yellow) Urine Appearance Hazy A (CLEAR) Urine pH 6 (5-7) Ur Specific [place] 1.000 L (1.005-1.030) Urine Protein Neg (Negative) Urine Glucose (UA) Norm (Normal) Urine Ketones Negative (Negative) Urine Nitrate Negative (Negative) Urine Bilirubin Neg (Negative) Ur Leukocyte Esterase 2+ H (Negative) Urine RBC 5-10 H (0-2) /hpf Urine WBC 25-40 H (0-5) /hpf Coags 09/11/23 05:30 C-Reactive Protein 5.9 H Cardiac Studies: 2 Echocardiogram 07/03/23
[2023-09-11] MEDS: sodium chloride 0.9% 1,000 ML 30 ML IV (12:50)
--- NOTE | 2023-09-11 13:31 | P.PN_ITS ---
Subjective 2 Subjective: Patient was seen this morning, she reports right upper quadrant pain on palpation, no fevers, no chills, no cough, denies any bloody or black stools Vitals/I&O/Wt Last Vital Signs Temp 97.7 F 09/11/23 11:11 Pulse 86 09/11/23 11:11 Resp 18 09/11/23 11:11 BP 126/68 09/11/23 11:11 Pulse Ox 97 09/11/23 11:11 O2 Del Method Room Air 09/11/23 11:11 09/10/23 09/11/23 09/11/23 22:59 06:59 14:59 Intake Total 206.25 / 206.25 557.5 / 763.75 200 / 200 Output Total 150 / 150 Balance 206.25 / 206.25 407.5 / 613.75 200 / 200 Weight last 48 hrs Weight 54.885 kg Weight 55.338 kg Physical Exam 2 Const: COMMON NORMALS: no acute distress and patient oriented x3 Resp: COMMON NORMALS: normal respiratory effort, No retractions, No use of accessory muscles and clear to auscultation bilaterally AUSCULTATION: clear to auscultation bilaterally Cardio: COMMON NORMALS: regular rate, regular rhythm, S1 normal heart sound present and S2 normal heart sound present RATE: regular rate RHYTHM: r egular rhythm HEART SOUNDS: S1 normal heart sound present and S2 normal heart sound present GI: INSPECTION: Yes normal to inspection AUSCULTATION: Yes normoactive bowel sounds PALPATION: Yes Tenderness to palpation present (GI) Details: RUQ Extremity: COMMON NORMALS: no pedal edema Neuro: COMMON NORMALS: patient oriented x3 Psych: COMMON NORMALS: mental status grossly normal Data 09/11/23 11:35 09/11/23 05:30 A&P Assessment and plan (1) GI (gastrointestinal bleed): Qualifiers: GI bleed type/associated pathology: unspecified gastrointestinal hemorrhage type Qualified Code(s): K92.2 - Gastrointestinal hemorrhage, unspecified (2) Abdominal pain: Qualifiers: Abdominal location: left lower quadrant Qualified Code(s): R10.32 - Left lower quadrant pain (3) Colitis: (4) RUQ pain: Plan GI bleed, ? Hemoglobin 8.9, during last hospital admission did not show evidence of iron deficiency ? Plan ? Monitor hemoglobin every 6 hours, ? Keep n.p.o., IV fluids, ? Avoid blood thinners, - General surgery consulted, RUQ pain, concerns of acute cholecystitis IMPRESSION: Mild gallbladder sludge and wall thickening. ? Continue Cipro and Flagyl -General surgery consulted Colitis ? Continue Cipro and Flagyl Magnesium 1.4, will replace IV Hypothyroidism, continue levothyroxine History of Waldenstr?m's macroglobulinemia Anemia, history of Waldenstr?m's macroglobulinemia, evidence of iron deficiency anemia Full code, ? SCDs for DVT prophylaxis, anticoagulation relatively contraindicated given GI bleed Attestations 2 Medical Necessity Statement*: Patient requires hospitalization for acute cholecystitis, GI bleed, colitis Diagnoses GI (gastrointestinal bleed) K92.2 GI bleed type/associated pathology: unspecified gastrointestinal hemorrhage type Abdominal pain R10.32 Abdominal location: left lower quadrant Colitis K52.9 RUQ pain R10.11
[2023-09-11] MEDS: lidocaine-epi 2% 20 mL INJ INJECTION (13:50)
--- NOTE | 2023-09-11 14:23 | P.OP_ITS ---
Operative Report Date of procedure: September 11, 2023 Surgeon: Filiberto Acevedo DO Brief History: This very pleasant 63-year-old female came in with abdominal pain. She was diagnosed with cholecystitis. Laparoscopic cholecystectomy is indicated. The risk benefits were explained and documented. Procedure: Preoperative diagnosis: Cholecystitis Postoperative diagnosis: Same Procedure performed: Laparoscopic cholecystectomy Surgeon: Dr. Filiberto Acevedo DO Estimated blood loss: 5 mL Specimens: Gallbladder to pathology Complications: None apparent Description of procedure: Patient was wheeled into the operative room and placed on the OR table in a supine position. Abdomen was inspected prepped and draped in usual sterile fashion. Time-out was performed and all present were in agreement. A 15 blade scalp was used to make a stab incision in the left upper quadrant and intra- abdominal insufflation was achieved using a Veress needle. After localizing the tissue incisions were made and a 5 millimeter trocar was placed into the umbilicus as well as 2 in the right upper quadrant. A 12 millimeter trocar was placed in the epigastrium. Gallbladder was grasped and elevated. The triangle of Calot was carefully dissected using blunt dissection and electrocautery until the triangle of Calot clearly identified. The cystic duct was clipped proximally and double clipped distally. The duct was then ligated proximally. The cystic artery was doubly clipped and ligated. The gallbladder was then removed from the liver bed using electrocautery. The gallbladder was removed from the abdomen using an Endo-Catch bag through the epigastric incision. The liver bed was inspected and no bleeding was seen. The abdomen was irrigated and suctioned. All ports removed. Skin was washed and dried. Incisions were closed with 4-0 Monocryl in a subcuticular interrupted fashion. Skin glue was applied. Patient tolerated the procedure well.
--- NOTE | 2023-09-11 16:28 | ANE.PACU2 ---
Inpatient post-anesthesia follow up: Airway intact: Yes Vital signs: Temperature 97.8 F Pulse Rate 79 Respiratory Rate 16 Blood Pressure 131/74 Pulse Oximetry 98 Oxygen Delivery Me thod Nasal Cannula Oxygen Flow Rate 2 Fraction of Inspir ed Oxygen Hydration adequate: Yes Nausea and vomiting: No Pain level: 4 Mental status: Baseline
[2023-09-11] MEDS: oxyCODONE 5 mg IR Tab/Cap PO (16:59)
[2023-09-11] MEDS: gabapentin 300 mg Capsule 600 MG PO (17:00)
[2023-09-11] MEDS: atorvastatin 40 mg Tablet 20 MG PO (17:00)
--- NOTE | 2023-09-11 17:44 | PC.NURSE ---
Pt agitation increasing as shift progresses. Pt states that she does not know what she is doing here and is going home immediately. Pt up and attempting to wander the halls. Easily redirected at this time.
[2023-09-11 18:01] LABS: Hematocrit 31.5 % (36-47)
[2023-09-11] MEDS: pantoprazole 40 mg SDV IVP (23:02)
[2023-09-12] VITALS (9 sets, daily range): BP systolic 121–151; BP diastolic 70–93; PULSE 59–115; RESP 12–19; TEMP 36.1–37; O2SAT 90–99
[2023-09-12] MEDS: OLANZapine 10 mg VIAL 5 MG IM (02:45)
[2023-09-12] MEDS: water for injection-sterile 10 ML (02:45)
--- NOTE | 2023-09-12 03:27 | PC.NURSE ---
OXYGEN THERAPY TEACHER went into pt room when she heard the pt's bed alarm go off. Pt was trying to go to the bathroom and became very agitated at [facility] when OXYGEN THERAPY TEACHER tried to slow her down to avoid pulling out her IV. Pt stated she was in her house and she had to a right to go wherever she wanted. Pt began yelling and took off her oxygen. Pt was in a semi-private room so staff moved the roommate to another room to allow safety and comfort for roommate. Pt began pacing through the hallways followed by security and staff. She was redirected to her room where she persisted to yell and say she was going to leave. She grabbed her bag of clothes and locked herself in the bathroom to change. She came out of the bathroom and sat in one of the chairs in her room with her street clothes on. Staff and security were in the room. Her lips began to turn purple so we directed her to the bed. She would not put on her nasal canula and was getting very agitated so staff physically restrained her to give her meds and put her oxygen back on. Her color returned to normal but the patient was still very upset. Staff was able to step out of the room and give the pt space afterward.
[2023-09-12 04:37] LABS: Basophils % 0.3 %; Eosinophils % 0.2 %; Lymphocytes # 7.4 10^3/uL (0.8-4.8); Lymphocytes % 55.9 %; Mean Corpuscular Volume 96.9 fl (85-98); Monocytes # 1.4 10^3/uL (0.2-0.9); Monocytes % 10.7 %; Neutrophils # 4.17 10^3/uL (1.8-7.7); Neutrophils % 31.5 %; Nucleated Red Blood Cells % 0 %; Platelet Count 115 10^3/cmm (157-399); Red Cell Distribution Width 13.9 % (12.1-15.1); White Blood Count 13.28 10^3/uL (3.29-11.43)
[2023-09-12 04:59] LABS: Alanine Aminotransferase 20 U/L (0-33); Albumin Level 3.3 g/dL (3.5-5.2); Alkaline Phosphatase 67 U/L (35-105); Anion Gap 16.6 (5-19); Aspartate Amino Transferase 54 U/L (0-32); Blood Urea Nitrogen 11 mg/dL (8-23); C Reactive Protein 4.7 mg/L (0.0-4.9); Calcium 8.9 mg/dL (8.5-10.5); Carbon Dioxide 21 mmol/L (22-29); Chloride 102 mmol/L (98-107); Creatinine Clr Calc Pharmacy 63.1749; Globulin 4.2 g/dL (1.3-4.6); Glomerular Filtration Rate 72.7 mL/min (90-130); Glucose 129 mg/dL (65-115); Magnesium 1.3 mg/dL (1.7-2.3); Osmolality Calculated 283 mOsm/kg (285-295); Potassium 3.6 mmol/L (3.5-5.1); Sodium 136 mmol/L (136-145); Total Bilirubin 0.3 mg/dL (0.15-1.2); Total Protein 7.5 g/dL (6.6-8.7)
[2023-09-12 05:16] LABS: Procalcitonin 0.06 ng/mL (0-0.5)
[2023-09-12] MEDS: levothyroxine 25 mcg Tablet PO (06:44)
[2023-09-12] MEDS: thiamine 100 mg Tablet PO (06:44)
[2023-09-12] MEDS: allopurinol 300 mg Tablet PO (06:44)
[2023-09-12] MEDS: folic acid 1 mg Tablet PO (06:44)
[2023-09-12] MEDS: gabapentin 300 mg Capsule PO (06:45)
[2023-09-12] MEDS: sodium chloride 0.9% 1,000 ML 75 ML IV ×2 (08:19→20:35)
[2023-09-12] MEDS: ciprofloxacin 400 MG/200 ML PREMIX 200 MG IV ×2 (08:19→22:00)
[2023-09-12] MEDS: metoprolol tartrate 50 mg Tablet PO ×2 (08:19→17:43)
--- NOTE | 2023-09-12 11:45 | PC.NURSE ---
Pt leaving for EGD now. Notifies GI lab in report that pt is agitated and refuses to be in gown.
--- NOTE | 2023-09-12 11:58 | P.PN_ITS ---
Vitals/I&O/Wt Last Vital Signs Temp 97.7 F 09/12/23 11:53 Pulse 91 09/12/23 11:53 Resp 16 09/12/23 11:53 BP 132/71 09/12/23 11:53 Pulse Ox 99 09/12/23 11:53 O2 Del Method Nasal Cannula 09/12/23 11:53 O2 Flow Rate 3 09/12/23 11:53 09/11/23 09/12/23 09/12/23 22:59 06:59 14:59 Intake Total 1840 / 2140 300 / 2440 200 / 200 Balance 1840 / 2135 300 / 2435 200 / 200 Weight last 48 hrs Weight 121 lb Weight 121 lb Data 09/12/23 04:30 09/12/23 04:30 Micro: Microbiology 09/10/23 00:26 Urine Culture - Preliminary Urine,Clean Catch A&P Assessment and plan (1) Abdominal pain: Qualifiers: Abdominal location: left lower quadrant Qualified Code(s): R10.32 - Left lower quadrant pain (2) GI (gastrointestinal bleed): Qualifiers: GI bleed type/associated pathology: unspecified gastrointestinal hemorrhage type Qualified Code(s): K92.2 - Gastrointestinal hemorrhage, unspecified (3) Cholecystitis: Plan Status post cholecystectomy EGD The risks and benefits of the procedure, including bleeding, infection, intestinal perforation requiring surgery, missed lesion were explained to the patient. The patient is understanding of the risks and wishes to proceed. Attestations 2 Medical Necessity Statement*: per primary Coding Level of Care Code Acute Code for Chg Fwd Diagnoses Abdominal pain R10.32 Abdominal location: left lower quadrant GI (gastrointestinal bleed) K92.2 GI bleed type/associated pathology: unspecified gastrointestinal hemorrhage type Cholecystitis K81.9
--- NOTE | 2023-09-12 12:08 | ANES.PAUD2 ---
Pre-Anesthetic Update Pre-Anesthetic Assessment: Date of Surgery/Procedure: 09/12/23 Proposed Procedure: Operation Date: 09/11/23 13:05 Proposed Procedures p Laparoscopic Cholecystectomy(Not Applicable) - Filiberto Acevedo, DO Operation Date: 09/12/23 12:10 Proposed Procedures p EGD(Not Applicable) - Filiberto Acevedo, DO Any changes to Pre-Anesthetic Assessment?: No Last Intake: Intake Last Liquid Date 09/11/23 Last Solid Date 09/06/23 Labs Last 48hrs: Short CBC 09/10/23 09/10/23 09/11/23 Range/Units 13:05 20:09 05:30 WBC 10.25 8.07 (3.29-11.43) 10^ 3/uL Hgb 8.90 L 9.90 L 8.90 L (11.27-16.99) g/ dL Hct 28.9 L 31.3 L 27.9 L (36-47) % MCV 98.6 H 95.2 (85-98) fl Plt Count 106 L 105 L (157-399) 10^3/c mm Neut % (Auto) 29.0 27.5 % Neut # (Auto) 2.98 2.22 (1.8-7.7) 10^3/u L 09/11/23 09/11/23 09/12/23 Range/Units 11:35 17:38 04:30 WBC 13.28 H (3.29-11.43) 10^ 3/uL Hgb 9.30 L 9.90 L 9.60 L (11.27-16.99) g/ dL Hct 29.0 L 31.5 L 31.0 L (36-47) % MCV 96.9 (85-98) fl Plt Count 115 L (157-399) 10^3/c mm Neut % (Auto) 31.5 % Neut # (Auto) 4.17 (1.8-7.7) 10^3/u L BMP 09/10/23 09/11/23 09/12/23 13:05 05:30 04:30 Sodium 133 L 135 L 136 Potassium 4.2 3.7 3.6 Chloride 102 103 102 Carbon Dioxide 22 20 L 21 L BUN 5 L 5 L 11 Creatinine 1.0 H 0.9 0.8 Glucose 90 91 129 H Calcium 9.0 8.7 8.9 Liver Function 09/10/23 09/11/23 09/12/23 Range/Units 13:05 05:30 04:30 Total Bilirubin 0.3 0.4 0.3 (0.15-1.2) mg/dL AST 53 H 50 H 54 H (0-32) U/L ALT 18 19 20 (0-33) U/L Alkaline Phosphata se 68 68 67 (35-105) U/L Albumin 3.2 L 3.2 L 3.3 L (3.5-5.2) g/dL Urine 09/10/23 Range/Units 00:26 Urine Color Yellow (Yellow) Urine Appearance Hazy A (CLEAR) Urine pH 6 (5-7) Ur Specific Gravit y 1.000 L (1.005-1.030) Urine Protein Neg (Negative) Urine Glucose (UA) Norm (Normal) Urine Ketones Negative (Negative) Urine Nitrate Negative (Negative) Urine Bilirubin Neg (Negative) Ur Leukocyte Mayra ase 2+ H (Negative) Urine RBC 5-10 H (0-2) /hpf Urine WBC 25-40 H (0-5) /hpf Coags 09/11/23 09/12/23 05:30 04:30 C-Reactive Protein 5.9 H 4.7 Vitals: Temperature 97.7 F 09/12/23 11:53 Temperature Source Oral 09/12/23 11:44 Pulse Rate 91 09/12/23 11:53 Pulse Rhythm Regular 09/10/23 20:12 Pulse Strength 3+ Normal 09/10/23 20:12 Respiratory Rate 16 09/12/23 11:53 Respiratory Effort Spontaneous, Non- Labored 09/11/23 20:00 Respiratory Depth Normal 09/11/23 20:00 Respiratory Patter n Normal 09/11/23 20:00 Blood Pressure 132/71 09/12/23 11:53 Blood Pressure Bina n 91 09/12/23 11:53 Blood Pressure Pos ition Semi Fowlers 09/11/23 20:00 Pulse Oximetry 99 09/12/23 11:53 Oxygen Delivery Me thod Nasal Cannula 09/12/23 11:53 Oxygen Flow Rate 3 09/12/23 11:53 Sepsis Recent Feve r Within 48 Hours No 09/10/23 11:41 Sepsis New/Unexpla ined Change in Men vilma Status No 09/10/23 11:41 Exam: Pre-Anes Outpt Exam: alert, oriented x 3, clear to auscultation bilaterally and regular rate & rhythm Cardiac Studies: Echocardiogram 07/03/23
[2023-09-12] MEDS: sodium chloride 0.9% 1,000 ML 30 ML IV (12:14)
--- NOTE | 2023-09-12 14:07 | XR_ITS ---
WS: [id number] PORTABLE CHEST HISTORY: ams COMPARISON: 03/08/2022 Very slight elevation of the LEFT hemidiaphragm with scarring. Similar to the prior studies. Lungs ar e otherwise clear. Mild pleural thickening at the LEFT costophrenic angle. Cardiac size: Normal. Mediastinum/Aorta: Normal mediastinum. Healed RIGHT lateral sixth rib fracture. IMPRESSION: 1. No pneumonia. 2. Chronic elevation LEFT hemidiaphragm with chronic atelectasis.
--- NOTE | 2023-09-12 14:07 | CTR_ITS ---
PROCEDURE INFORMATION: Exam: CT Head Without Contrast Exam date and time: 09/12/2023 6:06 PM Age: 63 years old Clinical indication: Altered mental status/memory loss; Additional info: AMS TECHNIQUE: Imaging protocol: Computed tomography of the head without contrast. Radiation optimization: All CT scans at this facility use at least one of these dose optimization techniques: automated exposure control; mA and/or kV adjustment per patient size (includes targeted exams where dose is matched to clinical indication); or iterative reconstruction. COMPARISON: CT head wo con* [id number] 11/25/2021 12:56 PM RADIATION DOSE METRICS: Total DLP (mGy-cm): 1046 FINDINGS: Brain: Normal. No hemorrhage. Unremarkable white matter. No mass effect. Cerebral ventricles: No ventriculomegaly. Paranasal sinuses: Visualized sinuses are unremarkable. No fluid levels. Mastoid air cells: Visualized mastoid air cells are well aerated. Bones/joints: Unremarkable. No acute fracture. Soft tissues: Unremarkable. CT/CT head wo con* [id number] IMPRESSION: No acute intracranial abnormality.
--- NOTE | 2023-09-12 14:15 | P.PN_ITS ---
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 for EGD -After EGD, patient had persistent episo kira of intermittent confusion -Due to persistent encephalopathy possib ly secondary to anesthetic, no water in the hospital another 24 hours, repeat blood work -I reviewed her records, back in September 2020, she had altered mental status she was actually very backed for concerns for possible stroke to [facility], evaluated by neurology symptoms were nonfocal, she is found to have a left lower lobe pneumonia, she was treated for the left lower lobe pneumonia, head MRI was within normal limits, she is followed up with neurology as outpatient Vitals/I&O/Wt Last Vital Signs Temp 97.0 F L 09/12/23 12:28 Pulse 90 09/12/23 12:48 Resp 18 09/12/23 12:48 BP 126/76 09/12/23 12:48 Pulse Ox 95 09/12/23 12:48 O2 Del Method Room Air 09/12/23 12:48 O2 Flow Rate 3 09/12/23 11:53 09/11/23 09/12/23 09/12/23 22:59 06:59 14:59 Intake Total 1840 / 2140 300 / 2440 350 / 350 Balance 1840 / 2135 300 / 2435 350 / 350 Weight last 48 hrs Weight 54.885 kg Weight 54.885 kg Physical Exam 2 Const: EXAM LIMITATIONS: altered mental status ORIENTATION/CONSCIOUSNESS: Y es awake, Yes oriented to person, Yes oriented to place and Yes confused; not oriented to time HENMT: COMMON NORMALS: normocephalic HEAD & SCALP: normocephalic Eye: COMMON NORMALS: Equal, round and reactive pupils present and EOMs intact bilaterally PUPIL: Yes Equal, round and reactive pupils present Neck/C-Spine: COMMON NORMALS: no lymphadenopathy Resp: COMMON NORMALS: normal respiratory effort, No retractions, No use of accessory muscles and clear to auscultation bilaterally AUSCULTATION: clear to auscultation bilaterally Cardio: COMMON NORMALS: regular rate, regular rhythm, S1 normal heart sound present and S2 normal heart sound present RATE: regular rate RHYTHM: r egular rhythm HEART SOUNDS: S1 normal heart sound present and S2 normal heart sound present GI: COMMON NORMALS: Normal to inspection, nondistended, normoactive bowel sounds present and non-tender Extremity: COMMON NORMALS: no pedal edema Neuro: COMMON NORMALS: CN's II-XII intact bilaterally, moves all extremities and no focal motor deficits SENSORIUM/ORIENTATION: Yes oriented to person, Yes oriented to place and No oriented to time Data 09/12/23 04:30 09/12/23 04:30 Micro: Microbiology 09/10/23 00:26 Urine Culture - Preliminary Urine,Clean Catch A&P Assessment and plan (1) GI (gastrointestinal bleed): Qualifiers: GI bleed type/associated pathology: unspecified gastrointestinal hemorrhage type Qualified Code(s): K92.2 - Gastrointestinal hemorrhage, unspecified (2) Abdominal pain: Qualifiers: Abdominal location: left lower quadrant Qualified Code(s): R10.32 - Left lower quadrant pain (3) Colitis: (4) RUQ pain: (5) Altered mental status: Plan Acute encephalopathy -Currently she is alert to person, to place, not to time, fluctuating mentation ? No focal symptoms, ? Had hospitalization for altered mental status and generally 2020 related to pneumonia -During prior hospitalization, blood cultures did show Staph epidermidis, ? Plan, ? Will do broad-spectrum workup ? Repeat urinalysis, blood cultures, CBC, CMP, magnesium, ammonia levels, TSH, CT of the head, ABG, troponin series ? Continue to monitor neurochecks, aspiration precautions, and a stroke scale total ? Possibly some of her encephalopathy could be related to anesthetic agent she received yesterday after her cholecystectomy and today after her EGD -Given positive staph epidermis blood cultures during last hospitalization repeat blood cultures today GI bleed, ? Hemoglobin 8.9, during last hospital admission did not show evidence of iron deficiency ? EGD showed gastritis ? Plan ? Monitor hemoglobin ? Regular diet ? Avoid blood thinners, for the next 24 hours - General surgery consulted, RUQ pain, concerns of acute cholecystitis IMPRESSION: Mild gallbladder sludge and wall thickening. -Status post laparoscopic cholecystectomy ? Continue Cipro and Flagyl -General surgery consulted Colitis ? Continue Cipro and Flagyl Magnesium 1.3, will replace IV Hypothyroidism, continue levothyroxine History of Waldenstr?m's macroglobulinemia Anemia, history of Waldenstr?m's macroglobulinemia, evidence of iron deficiency anemia Full code, ? SCDs for DVT prophylaxis, anticoagulation relatively contraindicated given GI bleed Attestations 2 Medical Necessity Statement*: Patient requires hospitalization for acute encephalopathy, GI bleed, cholecystectomy, colitis Diagnoses GI (gastrointestinal bleed) K92.2 GI bleed type/associated pathology: unspecified gastrointestinal hemorrhage type Abdominal pain R10.32 Abdominal location: left lower quadrant Colitis K52.9 RUQ pain R10.11 Altered mental status R41.82
--- NOTE | 2023-09-12 14:48 | ECG_ITS ---
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 Measurements Intervals [place] Rate: 90 P: 71 VT: 209 QRS: 41 QRSD: 75 T: 47 QT: 339 QTc: 415 Interpretive Statements SINUS RHYTHM LOW QRS VOLTAGE IN PRECORDIAL LEADS [QRS DEFLECTION < 1.0 mV IN CHEST LEADS] MINIMAL ST DEPRESSION [0.025+ mV ST DEPRESSION] Compared to ECG 11/29/2021 00:26:08 Low QRS voltage now present ST (T wave) deviation now present Electronically Signed On 09-12-2023 21:42:34 DIGITAL ASSOCIATE MEDIA DIRECTOR by Zoya Chowdary M.D. [email or web address]
[2023-09-12 14:58] LABS: ABG PCO2 36.4 mmHg (35-45); ABG PH Result 7.41 (7.35-7.45); Arterial Blood Gas Hematocrit 29.4 % (37-47); Base Excess ABG -1.4 mmol/L (-2.0-2.0); Blood Gas Operator Identificat GD; Blood Gas Sample Site Brachial, right; Blood Gas Sample Type Arterial; Oxygen Device ROOM AIR; PO2 ABG 55.2 mmHg (80.0-100.0)
[2023-09-12 15:18] LABS: Basophils % 0.3 %; Hematocrit 29.8 % (36-47); Lymphocytes # 4.2 10^3/uL (0.8-4.8); Lymphocytes % 45.7 %; Mean Corpuscular HGB Conc 31.9 g/dL (30-55); Mean Corpuscular Hemoglobin 30.4 pg (27-33); Mean Corpuscular Volume 95.2 fl (85-98); Mean Platelet Volume 9.4 fL (7.4-10.4); Monocytes # 1.2 10^3/uL (0.2-0.9); Monocytes % 13.5 %; Neutrophils # 3.58 10^3/uL (1.8-7.7); Neutrophils % 38.9 %; Nucleated Red Blood Cells % 0 %; Platelet Count 124 10^3/cmm (157-399); Red Blood Count 3.13 10^6/uL (3.85-5.65); Red Cell Distribution Width 14.1 % (12.1-15.1)
[2023-09-12] MEDS: magnesium sulfate premix 2 GM/50 ML PIGGYBACK IV (15:24)
[2023-09-12] MEDS: LORazepam 0.5 mg Tablet PO ×2 (15:29→15:30)
[2023-09-12 15:33] LABS: Ammonia 36 umol/L (11-51); Lactic Sepsis W/Reflex 1.2 mmol/L (0.5-2.2)
[2023-09-12 15:34] LABS: Troponin(5th) Baseline 9 ng/L (0-10)
[2023-09-12 15:44] LABS: NT Pro B Type Natriuretic Pept 1630 pg/mL (0-125); Procalcitonin 0.05 ng/mL (0-0.5); Thyroid Stimulating Hormone 3.15 uIU/mL (0.27-4.20)
[2023-09-12 15:48] LABS: Slide Review Slide Review Perform
[2023-09-12 15:56] LABS: Alanine Aminotransferase 20 U/L (0-33); Albumin Level 3.5 g/dL (3.5-5.2); Alkaline Phosphatase 66 U/L (35-105); Anion Gap 18.4 (5-19); Aspartate Amino Transferase 51 U/L (0-32); Blood Urea Nitrogen 10 mg/dL (8-23); C Reactive Protein 4.1 mg/L (0.0-4.9); Carbon Dioxide 21 mmol/L (22-29); Chloride 101 mmol/L (98-107); Creatinine Clr Calc Pharmacy 56.1555; Globulin 4.4 g/dL (1.3-4.6); Glomerular Filtration Rate 63.4 mL/min (90-130); Glucose 85 mg/dL (65-115); Magnesium 1.4 mg/dL (1.7-2.3); Osmolality Calculated 282 mOsm/kg (285-295); Phosphorus 3.4 mg/dL (2.5-4.5); Potassium 3.4 mmol/L (3.5-5.1); Sodium 137 mmol/L (136-145); Total Bilirubin 0.5 mg/dL (0.15-1.2); Total Protein 7.9 g/dL (6.6-8.7)
[2023-09-12] MEDS: gabapentin 300 mg Capsule 600 MG PO (17:42)
[2023-09-12] MEDS: atorvastatin 40 mg Tablet 20 MG PO (17:43)
[2023-09-12 20:10] LABS: Troponin 5 2HR 13.59 ng/L (0-10); Troponin 5 2HR Delta 4.59 ABS# (0-10)
[2023-09-12] MEDS: ropinirole 0.25 mg Tablet PO (20:33)
[2023-09-12] MEDS: pantoprazole 40 mg SDV IVP (20:33)
[2023-09-12] MEDS: trazodone 50 mg Tablet 25 MG PO (20:33)
[2023-09-12] MEDS: metroNIDAZOLE IV 500 MG/100 ML PREMIX 100 MG IV (20:34)
[2023-09-12 21:01] LABS: Troponin 5 6HR 12.46 ng/L (0-10); Troponin 5 6HR Delta 3.46 ng/L (0-12)
[2023-09-13] VITALS: BP 116/74; PULSE 87; RESP 18; TEMP 36.6; O2SAT 95
[2023-09-13 02:57] LABS: Basophils % 0.4 %; Eosinophils # 0.1 10^3/uL (0.0-0.8); Eosinophils % 1.1 %; Hematocrit 26.7 % (36-47); Lymphocytes # 4.4 10^3/uL (0.8-4.8); Lymphocytes % 54.5 %; Mean Corpuscular HGB Conc 32.2 g/dL (30-55); Mean Corpuscular Hemoglobin 30.7 pg (27-33); Mean Corpuscular Volume 95.4 fl (85-98); Mean Platelet Volume 9.1 fL (7.4-10.4); Monocytes % 12.3 %; Neutrophils # 2.43 10^3/uL (1.8-7.7); Neutrophils % 29.9 %; Nucleated Red Blood Cells % 0 %; Platelet Count 117 10^3/cmm (157-399); Red Cell Distribution Width 13.9 % (12.1-15.1); White Blood Count 8.14 10^3/uL (3.29-11.43)
[2023-09-13 03:19] LABS: Alanine Aminotransferase 17 U/L (0-33); Albumin Level 3.2 g/dL (3.5-5.2); Alkaline Phosphatase 57 U/L (35-105); Anion Gap 12.2 (5-19); Aspartate Amino Transferase 44 U/L (0-32); Blood Urea Nitrogen 12 mg/dL (8-23); C Reactive Protein 3.4 mg/L (0.0-4.9); Calcium 8.9 mg/dL (8.5-10.5); Carbon Dioxide 23 mmol/L (22-29); Chloride 106 mmol/L (98-107); Creatinine Clr Calc Pharmacy 56.1555; Globulin 3.9 g/dL (1.3-4.6); Glomerular Filtration Rate 63.4 mL/min (90-130); Glucose 106 mg/dL (65-115); Magnesium 1.7 mg/dL (1.7-2.3); Osmolality Calculated 286 mOsm/kg (285-295); Phosphorus 2.8 mg/dL (2.5-4.5); Potassium 3.2 mmol/L (3.5-5.1); Sodium 138 mmol/L (136-145); Total Bilirubin 0.3 mg/dL (0.15-1.2); Total Protein 7.1 g/dL (6.6-8.7)
[2023-09-13 03:31] LABS: Procalcitonin 0.07 ng/mL (0-0.5)
[2023-09-13 03:32] LABS: Slide Review Slide Review Perform
[2023-09-13 04:00] VITALS: BP 142/89; PULSE 105; RESP 17; TEMP 36.7; O2SAT 96
[2023-09-13] MEDS: gabapentin 300 mg Capsule PO (04:59)
[2023-09-13] MEDS: metroNIDAZOLE IV 500 MG/100 ML PREMIX 100 MG IV (04:59)
[2023-09-13] MEDS: thiamine 100 mg Tablet PO (04:59)
[2023-09-13] MEDS: folic acid 1 mg Tablet PO (04:59)
[2023-09-13] MEDS: levothyroxine 25 mcg Tablet PO (04:59)
[2023-09-13] MEDS: allopurinol 300 mg Tablet PO (04:59)
[2023-09-13 08:00] VITALS: BP 123/60; PULSE 78; RESP 17; TEMP 36.5; O2SAT 96
[2023-09-13] MEDS: ciprofloxacin 400 MG/200 ML PREMIX 200 MG IV (10:12)
[2023-09-13] MEDS: metoprolol tartrate 50 mg Tablet PO (10:12)
--- NOTE | 2023-09-13 10:26 | PM.DCS ---
Discharge Providers Date of Admission: 09/10/23 15:03 Date of Discharge: September 13, 2023 Attending Provider at Admission: Wild Good MD Attending Provider at Discharge: Wild Godo MD Primary Care Provider: Lucy Dean Diagnoses at Discharge Discharge Diagnosis (1) GI (gastrointestinal bleed): Status: Acute Qualifiers: GI bleed type/associated pathology: unspecified gastrointestinal hemorrhage type Qualified Code(s): K92.2 - Gastrointestinal hemorrhage, unspecified (2) Abdominal pain: Status: Acute Qualifiers: Abdominal location: left lower quadrant Qualified Code(s): R10.32 - Left lower quadrant pain (3) Colitis: Status: Acute (4) RUQ pain: Status: Acute (5) Altered mental status: Status: Resolved Reason for Visit Reason for Visit: abd pain/dizzy Hospital Course Hospital Course Yulisa Kinney is a 63 year old female with a past medical history of Waldenstr?m's macroglobulinemia, history of hypothyroidism, degenerative arthritis, lumbar radiculopathy, hyperlipidemia hypertension, who presents [facility] to due to 2 episodes of bloody bowel movements. Patient tested that yesterday when she got home for the hospital, she went to bed, she did not have much of an appetite, but when she woke up she had 1 episode of large bowel bloody bowel movement, blood with wiping, again this morning, when she had a bowel movement, she had a bloody bowel movement blood with wiping, she tells me that it was mixed clots with bright red blood, she tells her that when she was here in the hospital she did not have any bloody or black stools, she did feel a bit lightheaded, and some dizziness, no syncope, no chest pain, no palpitations, no hemoptysis, no hematemesis, Patient was admitted to [facility] for GI bleed, hemoglobin 8.9 no transfusion required, underwent EGD which showed mild gastritis, discharged on Protonix, For her concerns of colitis she was managed with Cipro and Flagyl, discharged on 5 remaining days of Cipro and Flagyl, Patient had right upper quadrant pain, findings concerning for acute cholecystitis, general surgery consulted, status post laparoscopic cholecystectomy, passing gas having bowel movements on discharge, follow-up with general surgery as outpatient For her hospitalization was complicated with acute encephalopathy likely secondary to anesthetic agent, CT head within normal limits, UA within normal limits, repeat blood cultures so far pending but her prior blood cultures 1 out of 4 positive staph epidermis, likely contamination, on discharge she was alert oriented x 3 following all commands she was actually seen ambulating in her room, actually talking to her roommate, has no complaints Physical Exam Const: COMMON NORMALS: no acute distress and patient oriented x3 Resp: COMMON NORMALS: normal respiratory effort, No retractions, No use of accessory muscles and clear to auscultation bilaterally AUSCULTATION: clear to auscultation bilaterally Cardio: COMMON NORMALS: regular rate, regular rhythm, S1 normal heart sound present and S2 normal heart sound present RATE: regular rate RHYTHM: regular rhythm HEART SOUNDS: S1 normal heart sound present and S2 normal heart sound present GI: COMMON NORMALS: Normal to inspection, nondistended, normoactive bowel sounds present and non-tender OTHER: surgical site looks clean and dry Extremity: COMMON NORMALS: no pedal edema Neuro: COMMON NORMALS: patient oriented x3 Discharge Data Studies Completed and Pending Completed Studies During Hospitalization Category Date Time Status CT abdomen pelvis w con* 20230 Stat Cat Scan 09/10/23 12:[address] head wo con* [id number] Routine Cat Scan 09/12/23 14:07 Completed XR chest 1V portable [id number] Routine Exams 09/12/23 14:07 Completed US gall bladder [id number] Stat Ultrasound 09/10/23 16:27 Completed Pending at discharge Category Date Time Status Blood Cultures ([facility]) Routine Lab 09/12/23 14:52 Received Blood Cultures ([facility]) Routine Lab 09/12/23 14:57 Received Urinalysis Routine Lab 09/12/23 14:07 Uncollected Urine Culture Routine Lab 09/10/23 00:26 Results Pathology: Surgical [PTH] Routine Pth 09/11/23 14:30 Received Pathology: Surgical [PTH] Routine Pth 09/12/23 12:26 Received Radiology Impressions Abdomen/Pelvis CT 09/10/23 12:03 IMPRESSION: Question mild gallbladder wall thickening without stones. Mild dilatation of the common duct. Ultrasound recommended for further evaluation. Gallbladder Ultrasound 09/10/23 16:27 IMPRESSION: Unremarkable duplex of the portal vein. IMPRESSION: Mild gallbladder sludge and wall thickening. Head CT 09/12/23 14:07 IMPRESSION: No acute intracranial abnormality. Laboratory Results WBC 8.14 10^3/uL (3.29-11.43) 09/13/23 02:48 RBC 2.80 10^6/uL (3.85-5.65) L 09/13/23 02:48 Hgb 8.60 g/dL (11.27-16.99) L 09/13/23 02:48 Hct 26.7 % (36-47) L 09/13/23 02:48 MCV 95.4 fl (85-98) 09/13/23 02:48 MCH 30.7 pg (27-33) 09/13/23 02:48 MCHC 32.2 g/dL (30-55) 09/13/23 02:48 RDW 13.9 % (12.1-15.1) 09/13/23 02:48 Plt Count 117 10^3/cmm (157-399) L 09/13/23 02:48 MPV 9.1 fL (7.4-10.4) 09/13/23 02:48 Neut % (Auto) 29.9 % 09/13/23 02:48 Lymph % (Auto) 54.5 % 09/13/23 02:48 Boundary % (Auto) 12.3 % 09/13/23 02:48 Eos % (Auto) 1.1 % 09/13/23 02:48 Baso % (Auto) 0.4 % 09/13/23 02:48 Neut # (Auto) 2.43 10^3/uL (1.8-7.7) 09/13/23 02:48 Lymph # (Auto) 4.4 10^3/uL (0.8-4.8) 09/13/23 02:48 Boundary # (Auto) 1.0 10^3/uL (0.2-0.9) H 09/13/23 02:48 Eos # (Auto) 0.1 10^3/uL (0.0-0.8) 09/13/23 02:48 Baso # (Auto) 0.0 10^3/uL (0.0-0.1) 09/13/23 02:48 Nucleated RBC % (auto) 0 % 09/13/23 02:48 Nucleated RBCs # 0.0 /100WBC 09/13/23 02:48 Specimen Type Arterial 09/12/23 14:40 Sample Site Brachial, right 09/12/23 14:40 ABG pH 7.41 (7.35-7.45) 09/12/23 14:40 ABG pCO2 36.4 mmHg (35-45) 09/12/23 14:40 ABG pO2 55.2 mmHg (80.0-100.0) L 09/12/23 14:40 ABG HCO3 23.0 mmol/L (22-26) 09/12/23 14:40 ABG Base Excess -1.4 mmol/L (-2.0-2.0) 09/12/23 14:40 Mark Test N/a 09/12/23 14:40 Hematocrit 29.4 % (37-47) L 09/12/23 14:40 O2 Delivery Device Room air 09/12/23 14:40 Pulp Beater ID Gd 09/12/23 14:40 Sodium 138 mmol/L (136-145) 09/13/23 02:48 Potassium 3.2 mmol/L (3.5-5.1) L 09/13/23 02:48 Chloride 106 mmol/L (98-107) 09/13/23 02:48 Carbon Dioxide 23 mmol/L (22-29) 09/13/23 02:48 Anion Gap 12.2 (5-19) 09/13/23 02:48 BUN 12 mg/dL (8-23) 09/13/23 02:48 Creatinine 0.9 mg/dL (0.5-0.9) 09/13/23 02:48 GFR Calculation 63.4 mL/min (90-130) L 09/13/23 02:48 Glucose 106 mg/dL (65-115) 09/13/23 02:48 Calculated Osmolality 286 mOsm/kg (285-295) 09/13/23 02:48 Lactic Acid 1.2 mmol/L (0.5-2.2) 09/12/23 14:52 Calcium 8.9 mg/dL (8.5-10.5) 09/13/23 02:48 Phosphorus 2.8 mg/dL (2.5-4.5) 09/13/23 02:48 Magnesium 1.7 mg/dL (1.7-2.3) 09/13/23 02:48 Total Bilirubin 0.3 mg/dL (0.15-1.2) 09/13/23 02:48 AST 44 U/L (0-32) H 09/13/23 02:48 ALT 17 U/L (0-33) 09/13/23 02:48 Alkaline Phosphatase 57 U/L (35-105) 09/13/23 02:48 Ammonia 36 umol/L (11-51) 09/12/23 14:52 Troponin T Baseline 9 ng/L (0-10) 09/12/23 14:52 Troponin T 120 Minute 13.59 ng/L (0-10) H 09/12/23 19:37 Delta Troponin T 4.59 ABS# (0-10) 09/12/23 19:37 Troponin T Hi Sens 6Hr 12.46 ng/L (0-10) H 09/12/23 20:35 Troponin T Hi Sens 6Hr Delta 3.46 ng/L (0-12) 09/12/23 20:35 C-Reactive Protein 3.4 mg/L (0.0-4.9) 09/13/23 02:48 NT-Pro-B Natriuret Pep 1630 pg/mL (0-125) H 09/12/23 14:52 Total Protein 7.1 g/dL (6.6-8.7) 09/13/23 02:48 Albumin 3.2 g/dL (3.5-5.2) L 09/13/23 02:48 Globulin 3.9 g/dL (1.3-4.6) 09/13/23 02:48 Lipase 34 U/L (13-60) 09/10/23 13:05 Procalcitonin 0.07 ng/mL (0-0.5) 09/13/23 02:48 TSH 3.15 uIU/mL (0.27-4.20) 09/12/23 14:52 Urine Color Yellow (Yellow) 09/10/23 00:26 Urine Appearance Hazy (CLEAR) A 09/10/23 00:26 Urine pH 6 (5-7) 09/10/23 00:26 Ur Specific [place] 1.000 (1.005-1.030) L 09/10/23 00:26 Urine Protein Neg (Negative) 09/10/23 00:26 Urine Glucose (UA) Norm (Normal) 09/10/23 00:26 Urine Ketones Negative (Negative) 09/10/23 00:26 Urine Blood Neg (Negative) 09/10/23 00:26 Urine Nitrate Negative (Negative) 09/10/23 00:26 Urine Bilirubin Neg (Negative) 09/10/23 00:26 Urine Urobilinogen Norm mg/dL (Negative) 09/10/23 00:26 Ur Leukocyte Esterase 2+ (Negative) H 09/10/23 00:26 Urine RBC 5-10 /hpf (0-2) H 09/10/23 00:26 Urine WBC 25-40 /hpf (0-5) H 09/10/23 00:26 Ur Squamous Epith Cells 0-4 /hpf (0-5) H 09/10/23 00:26 Amorphous Sediment Not Reportable 09/10/23 00:26 Urine Bacteria Trace /hpf (NONE) 09/10/23 00:26 Vitals Last Vital Signs Temp 97.7 F 09/13/23 08:00 Pulse 78 09/13/23 08:00 Resp 17 09/13/23 08:00 BP 123/60 09/13/23 08:00 Pulse Ox 96 09/13/23 08:00 O2 Del Method Room Air 09/12/23 20:00 O2 Flow Rate 2 09/12/23 15:20 Discharge Plan Discharge Patient Disposition: Home Condition: Stable Prescriptions: New metronidazole 500 mg tablet 500 mg PO Q8H 5 Days Qty: 15 0RF Continued (DME) Seated walker See Rx Instructions .Route .MEDSUPPLY Qty: 1 0RF Rx Instructions: As directed folic acid 1 mg tablet 1 mg PO QAM acetaminophen-codeine 300-30 mg tablet 1 tab PO Q4H PRN (Reason: pain) Qty: 30 0RF gabapentin 300 mg capsule See Rx Instructions .ROUTE .COMPLEX Qty: 270 3RF Dose Instruction: TAKE ONE CAPSULE BY MOUTH IN THE MORNING AND THEN TAKE TWO CAPSULES BY MOUTH IN THE EVENING Rx Instructions: TAKE ONE CAPSULE BY MOUTH IN THE MORNING AND THEN TAKE TWO CAPSULES BY MOUTH IN THE EVENING atorvastatin [Lipitor] 20 mg Tablet 20 mg PO QPM ropinirole 0.25 mg Tablet 0.25 - 0.5 mg PO BEDTIME allopurinol 300 mg Tablet 300 mg PO QAM cyclobenzaprine 10 mg Tablet See Rx Instructions .ROUTE .COMPLEX Rx Instructions: 10 mg orally qam and 20mg po bedtime ascorbic acid (vitamin C) [Vitamin C] 500 mg Tablet 500 mg PO BID calcium carbonate-vitamin D3 [Calcium 500 + D] 500 mg(1,250mg) -200 unit Tablet See Rx Instructions .ROUTE .COMPLEX Rx Instructions: 1 tab orally in the morning and 2 tabs orally in the evening sucralfate [Carafate] 1 gram Tablet 1 g PO BID levothyroxine 25 mcg Tablet 25 mcg PO QAM Qty: 30 0RF thiamine HCl (vitamin B1) 100 mg tablet 100 mg PO QAM lorazepam 0.5 mg tablet 0.5 - 1.5 mg PO BEDTIME pantoprazole 40 mg tablet,delayed release (DR/EC) 40 mg PO QAM trazodone 50 mg tablet 25 - 50 mg PO BEDTIME metronidazole 500 mg tablet 500 mg PO TID Qty: 18 0RF Rx Instructions: not started taking as of 09/10/23 ferrous sulfate [iron] 325 mg (65 mg iron) tablet 325 mg PO EVERY OTHER DAY Qty: 90 0RF Rx Instructions: not started taking as of 09/10/23 metoprolol tartrate 50 mg tablet 50 mg PO BID potassium chloride 20 mEq tablet extended release 20 meq PO QAM ciprofloxacin HCl 500 mg tablet 500 mg PO BID 5 Days Qty: 10 0RF Rx Instructions: not started taking as of 09/10/23 Discharge Orders: Discharge Order (Routine); Ordered 09/13/23 Ordered By: Wild Good Referrals: Filiberto Acevedo DO [Physician] - 2 weeks Lucy Dean PA [Primary Care Provider] - Discharge Diet: Regular Discharge Activity: Resume usual activity Patient Instructions: Ciprofloxacin (By mouth), Metronidazole (By mouth), Abdominal Pain (ED), GI Discharge Instructions, Opioid Safety, Post Anesthesia Care Activity Restrictions/Additional Instructions: - Please hydrate well, drink electrolyte balanced fluids, follow general surgery Discharge Attestations Time Spent in Discharge Care*: greater than 30 min Status at Discharge: Cognitive status at discharge: cognitively intact, Behavioral status at discharge: cooperative, Quality Metrics Clinical Quality Measures [ No reported AMI, CVA or VTE this stay] Coding Level of Care Code 45901 Total time (in minutes) for Discharge: 45 Diagnoses GI (gastrointestinal bleed) K92.2 GI bleed type/associated pathology: unspecified gastrointestinal hemorrhage type Abdominal pain R10.32 Abdominal location: left lower quadrant Colitis K52.9 RUQ pain R10.11 Altered mental status R41.82
--- NOTE | 2023-09-13 11:29 | PC.SOCIAL ---
Pg 2 IMM Explained to pt Pg 2 IMM. No questions voiced. Provided pt a copy. Initialed, dated, & timed a copy & placed in chart.
== END 2023-09-13 11:50 | disposition home or self-care (01) | DRG 418 ==
LOC: ER 15:06 → MEDSURG 18:27
PROVIDERS: Emergency Medicine; Surgery; Admitting Provider Family Medicine; Emergency Provider Internal Medicine; PCP Physician Assistant; Visit Provider Family Medicine
PROC: 0FT44ZZ Resection of Gallbladder, Percutaneous Endoscopic Approach (ICD-10-PCS; CPT 47562; principal; 2023-09-11 12:55)
PROC: 0DJ08ZZ Inspection of Upper Intestinal Tract, Via Natural or Artificial Opening Endoscopic (ICD-10-PCS; CPT 43235; principal; 2023-09-12 12:10)
DX: K81.1 Chronic cholecystitis (principal); K92.2 Gastrointestinal hemorrhage, unspecified; D50.9 Iron deficiency anemia, unspecified; K52.9 Noninfective gastroenteritis and colitis, unspecified; E03.9 Hypothyroidism, unspecified; R10.32 Left lower quadrant pain; C88.0 Waldenstrom macroglobulinemia; E78.5 Hyperlipidemia, unspecified; I10 Essential (primary) hypertension; K21.9 Gastro-esophageal reflux disease without esophagitis; J44.9 Chronic obstructive pulmonary disease, unspecified; R41.0 Disorientation, unspecified; Z87.891 Personal history of nicotine dependence
CPT/HCPCS: 36415; 36600; 70450; 71045; 74177; 76705; 80053; 81001; 82140; 82803; 83605; 83690; 83735; 83880; 84100; 84145; 84443; 84484; 85014; 85018; 85025; 86140; 87040; 87086; 88304; 88305; 93005; 94664; 96372; 99285; C9113; J0744; J1100; J2060; J2250; J2371; J2405; J2704; J2710; J3010; J3475; J3490; J7030; Q9967

== ENCOUNTER 2023-10-04 09:45 | Oncology outpatient (recurring) (ONCR) | payer MEDICARE, MEDICAID, SELFPAY ==
[2023-10-04 11:01] LABS: Albumin Level 3.7 g/dL (3.5-5.2); Alkaline Phosphatase 63 U/L (35-105); Anion Gap 15.5 (5-19); Aspartate Amino Transferase 43 U/L (0-32); Blood Urea Nitrogen 10 mg/dL (8-23); Carbon Dioxide 27 mmol/L (22-29); Chloride 102 mmol/L (98-107); Glomerular Filtration Rate 63.4 mL/min (90-130); Glucose 121 mg/dL (65-115); Osmolality Calculated 290 mOsm/kg (285-295); Potassium 4.5 mmol/L (3.5-5.1); Sodium 140 mmol/L (136-145); Total Bilirubin 0.3 mg/dL (0.15-1.2); Total Protein 8.7 g/dL (6.6-8.7)
[2023-10-04 11:03] LABS: Lactate Dehydrogenase 263 U/L (135-214)
[2023-10-04 11:11] LABS: Alanine Aminotransferase 19 U/L (0-33)
[2023-10-04 11:43] LABS: Monocytes % 18.3 %; Nucleated Red Blood Cells % 0 %
[2023-10-04 11:46] LABS: Erythrocyte Sedimentation Rate < 1 mm/hr (0-15)
[2023-10-04 11:49] LABS: Basophils % 0.5 %; Eosinophils # 0.3 10^3/uL (0.0-0.8); Eosinophils % 3.9 %; Hematocrit 32.8 % (36-47); Lymphocytes # 3.5 10^3/uL (0.8-4.8); Mean Corpuscular HGB Conc 31.1 g/dL (30-55); Mean Corpuscular Hemoglobin 30.1 pg (27-33); Mean Corpuscular Volume 96.8 fl (85-98); Mean Platelet Volume 9.5 fL (7.4-10.4); Monocytes # 1.2 10^3/uL (0.2-0.9); Neutrophils # 1.64 10^3/uL (1.8-7.7); Neutrophils % 24.7 %; Platelet Count 152 10^3/cmm (157-399); Red Blood Count 3.39 10^6/uL (3.85-5.65); Red Cell Distribution Width 14.2 % (12.1-15.1); White Blood Count 6.63 10^3/uL (3.29-11.43)
[2023-10-04 11:50] LABS: Slide Review Slide Review Perform
[2023-10-06 10:59] LABS: PROTEIN, TOTAL 8.1 g/dL (6.1-8.1)
[2023-10-11 09:25] LABS: ABNORMAL PROTEIN BAND 1 2.4 g/dL (NONE DETECTED); ALBUMIN 3.4 g/dL (3.8-4.8); ALPHA 1 GLOBULIN 0.4 g/dL (0.2-0.3); ALPHA 2 GLOBULIN 0.9 g/dL (0.5-0.9); BETA 1 GLOBULIN 0.4 g/dL (0.4-0.6); BETA 2 GLOBULIN 0.4 g/dL (0.2-0.5); GAMMA GLOBULIN 2.7 g/dL (0.8-1.7)
== END 2023-10-04 23:59 | disposition home or self-care (01) ==
PROVIDERS: PCP Physician Assistant; Visit Provider Internal Medicine Medical Oncology
DX: C88.0 Waldenstrom macroglobulinemia (principal); R53.83 Other fatigue; R26.81 Unsteadiness on feet; D64.9 Anemia, unspecified; G25.81 Restless legs syndrome; G62.9 Polyneuropathy, unspecified
CPT/HCPCS: 36415; 80053; 83615; 84155; 84165; 85025; 85651; 86334; 99214

== ENCOUNTER 2023-11-14 11:44 | Oncology outpatient (recurring) (ONCR) | payer MEDICARE, MEDICAID, SELFPAY ==
[2023-11-14 13:22] LABS: Basophils % 0.3 %; Eosinophils # 0.1 10^3/uL (0.0-0.8); Eosinophils % 1.1 %; Lymphocytes # 6.4 10^3/uL (0.8-4.8); Lymphocytes % 55.7 %; Mean Corpuscular HGB Conc 30.4 g/dL (30-55); Mean Corpuscular Hemoglobin 28.7 pg (27-33); Mean Corpuscular Volume 94.6 fl (85-98); Mean Platelet Volume 9.4 fL (7.4-10.4); Monocytes # 1.8 10^3/uL (0.2-0.9); Neutrophils # 2.94 10^3/uL (1.8-7.7); Neutrophils % 25.8 %; Nucleated Red Blood Cells % 0 %; Platelet Count 150 10^3/cmm (157-399); Red Blood Count 2.96 10^6/uL (3.85-5.65); Red Cell Distribution Width 14.4 % (12.1-15.1); White Blood Count 11.45 10^3/uL (3.29-11.43)
[2023-11-14 13:49] LABS: Slide Review Slide Review Perform
[2023-11-14 14:24] LABS: Alanine Aminotransferase 17 U/L (0-33); Albumin Level 3.5 g/dL (3.5-5.2); Alkaline Phosphatase 134 U/L (35-105); Anion Gap 15.7 (5-19); Aspartate Amino Transferase 37 U/L (0-32); Blood Urea Nitrogen 16 mg/dL (8-23); C Reactive Protein 10.1 mg/L (0.0-4.9); Calcium 9.4 mg/dL (8.5-10.5); Carbon Dioxide 26 mmol/L (22-29); Chloride 97 mmol/L (98-107); Creatinine Clr Calc Pharmacy 45.6844; Globulin 5.1 g/dL (1.3-4.6); Glomerular Filtration Rate 56.2 mL/min (90-130); Glucose 82 mg/dL (65-115); Immunoglobulin IGA 56 mg/dL (70-400); Immunoglobulin IGG 530 mg/dL (700-1600); Lactate Dehydrogenase 220 U/L (135-214); Osmolality Calculated 278 mOsm/kg (285-295); Potassium 4.7 mmol/L (3.5-5.1); Sodium 134 mmol/L (136-145); Total Bilirubin 0.3 mg/dL (0.15-1.2); Total Protein 8.6 g/dL (6.6-8.7)
[2023-11-14 15:06] LABS: Iron 40 ug/dL (37-145); Total Iron Binding Capacity 250 mcg/dl; Unsaturated Iron Binding 210 ug/dL (112-347)
[2023-11-14 16:22] LABS: Immunoglobulin IGM > 4134 mg/dL (40-230)
[2023-11-17 09:39] LABS: ABNORMAL PROTEIN BAND 1 2.3 g/dL (NONE DETECTED); ALBUMIN 3.2 g/dL (3.8-4.8); ALPHA 1 GLOBULIN 0.4 g/dL (0.2-0.3); BETA 1 GLOBULIN 0.4 g/dL (0.4-0.6); BETA 2 GLOBULIN 0.4 g/dL (0.2-0.5); GAMMA GLOBULIN 2.6 g/dL (0.8-1.7)
== END 2023-12-03 23:59 | disposition home or self-care (01) ==
LOC: ONCMED 11:44
PROVIDERS: PCP Physician Assistant; Visit Provider Internal Medicine Medical Oncology
DX: C88.0 Waldenstrom macroglobulinemia (principal); D64.9 Anemia, unspecified; D72.819 Decreased white blood cell count, unspecified; Z87.891 Personal history of nicotine dependence; G62.9 Polyneuropathy, unspecified
CPT/HCPCS: 36415; 80053; 82784; 83540; 83550; 83615; 84155; 84165; 85025; 86140; 86334; 99214

== ENCOUNTER 2023-12-20 08:30 | Oncology outpatient (recurring) (ONCR) | payer MEDICARE, MEDICAID, SELFPAY ==
[2023-12-06 14:57] LABS: Reticulocyte % 2.3 % (0.5-2.0)
[2023-12-06 15:08] LABS: LAB Peripheral Smear Sent for Review
[2023-12-06 15:09] LABS: Basophils % 0.4 %; Eosinophils # 0.1 10^3/uL (0.0-0.8); Eosinophils % 0.8 %; Hematocrit 27.1 % (36-47); Lymphocytes % 59.8 %; Mean Corpuscular HGB Conc 30.6 g/dL (30-55); Mean Corpuscular Hemoglobin 28.2 pg (27-33); Mean Corpuscular Volume 92.2 fl (85-98); Mean Platelet Volume 9.5 fL (7.4-10.4); Monocytes # 1.5 10^3/uL (0.2-0.9); Monocytes % 17.3 %; Neutrophils # 1.76 10^3/uL (1.8-7.7); Neutrophils % 20.9 %; Nucleated Red Blood Cells % 0 %; Platelet Count 124 10^3/cmm (157-399); Red Blood Count 2.94 10^6/uL (3.85-5.65); Red Cell Distribution Width 15.3 % (12.1-15.1)
[2023-12-06 15:31] LABS: Slide Review Slide Review Perform
[2023-12-06 15:35] LABS: Alanine Aminotransferase 17 U/L (0-33); Albumin Level 3.7 g/dL (3.5-5.2); Alkaline Phosphatase 108 U/L (35-105); Anion Gap 15.2 (5-19); Aspartate Amino Transferase 39 U/L (0-32); Blood Urea Nitrogen 13 mg/dL (8-23); C Reactive Protein 6.8 mg/L (0.0-4.9); Calcium 9.4 mg/dL (8.5-10.5); Carbon Dioxide 27 mmol/L (22-29); Chloride 97 mmol/L (98-107); Ferritin 109 ng/mL (15-150); Globulin 4.7 g/dL (1.3-4.6); Glomerular Filtration Rate 63.4 mL/min (90-130); Glucose 88 mg/dL (65-115); Iron 45 ug/dL (37-145); Lactate Dehydrogenase 233 U/L (135-214); Osmolality Calculated 280 mOsm/kg (285-295); Percent Saturation 16.9 % (20-50); Potassium 4.2 mmol/L (3.5-5.1); Sodium 135 mmol/L (136-145); Thyroid Stimulating Hormone 3.33 uIU/mL (0.27-4.20); Total Bilirubin 0.4 mg/dL (0.15-1.2); Total Iron Binding Capacity 266 mcg/dl; Total Protein 8.4 g/dL (6.6-8.7); Unsaturated Iron Binding 221 ug/dL (112-347); Vitamin B12 510 pg/mL (232-1245)
[2023-12-06 15:46] LABS: Erythrocyte Sedimentation Rate < 1 mm/hr (0-15)
[2023-12-11] MEDS: iron sucrose 200 MG in sodium chloride 0.9% (100 ml) 100 ML 220 MG IV (10:24)
[2023-12-11] MEDS: sodium chloride 0.9% 250 ML 75 ML IV (10:48)
[2023-12-11 11:09] VITALS: BP 96/58; PULSE 83; RESP 16; TEMP 36.2; O2SAT 97
[2023-12-11 11:16] VITALS: BP 131/76; PULSE 80; RESP 16; TEMP 36.4; O2SAT 96
[2023-12-13] MEDS: sodium chloride 0.9% 250 ML 75 ML IV (08:46)
[2023-12-13 08:48] VITALS: BP 99/62; PULSE 79; RESP 16; TEMP 36.7; O2SAT 94
[2023-12-13] MEDS: iron sucrose 200 MG in sodium chloride 0.9% (100 ml) 100 ML 220 MG IV (09:04)
[2023-12-13 09:54] VITALS: BP 106/68; PULSE 76; RESP 16; TEMP 36.7; O2SAT 96
[2023-12-15] MEDS: iron sucrose 200 MG in sodium chloride 0.9% (100 ml) 100 ML 220 MG IV (08:53)
[2023-12-15 08:59] LABS: Mean Corpuscular HGB Conc 31.5 g/dL (30-55); Mean Corpuscular Hemoglobin 28.6 pg (27-33); Mean Corpuscular Volume 90.9 fl (85-98); Mean Platelet Volume 9.4 fL (7.4-10.4); Platelet Count 104 10^3/cmm (157-399); Red Blood Count 2.97 10^6/uL (3.85-5.65); Red Cell Distribution Width 15.8 % (12.1-15.1); White Blood Count 10.95 10^3/uL (3.29-11.43)
[2023-12-15 09:16] LABS: Alanine Aminotransferase 14 U/L (0-33); Albumin Level 3.7 g/dL (3.5-5.2); Alkaline Phosphatase 107 U/L (35-105); Anion Gap 12.9 (5-19); Aspartate Amino Transferase 40 U/L (0-32); Blood Urea Nitrogen 12 mg/dL (8-23); Calcium 9.4 mg/dL (8.5-10.5); Carbon Dioxide 27 mmol/L (22-29); Chloride 88 mmol/L (98-107); Creatinine Clr Calc Pharmacy 56.9098; Globulin 4.7 g/dL (1.3-4.6); Glomerular Filtration Rate 72.7 mL/min (90-130); Glucose 87 mg/dL (65-115); Osmolality Calculated 257 mOsm/kg (285-295); Potassium 3.9 mmol/L (3.5-5.1); Sodium 124 mmol/L (136-145); Total Bilirubin 0.6 mg/dL (0.15-1.2); Total Protein 8.4 g/dL (6.6-8.7)
[2023-12-15 09:38] VITALS: BP 158/65; PULSE 82; TEMP 36.3; O2SAT 96
[2023-12-15 09:55] LABS: Slide Review Slide Review Perform
[2023-12-15 09:56] LABS: Absolute Eosinophils 0.1 10^3/cmm (0.0-0.7); Absolute Neutrophil 3.2 10^3/cmm (1.4-6.5); Absolute Segmented Neutrophil 3.2 10/cmm (1.6-7.1); Eosinophils 1 %; Hypochromasia 1+; Lymphocytes 52 %; Lymphocytes Absolute 5.7 10^3/cmm (1.2-3.4); Platelet Estimate Decreased (Normal); Segmented Neutrophils 29 %; Total Cells Counted 100 (0-100)
[2023-12-18 09:55] VITALS: BP 121/72; PULSE 72; RESP 16; O2SAT 100
[2023-12-18] MEDS: iron sucrose 200 MG in sodium chloride 0.9% (100 ml) 100 ML 220 MG IV (10:01)
[2023-12-18 10:50] VITALS: BP 114/74; PULSE 75; RESP 16; TEMP 36.4; O2SAT 99
[2023-12-20 09:14] VITALS: BP 93/58; PULSE 97; RESP 16; TEMP 36.6; O2SAT 98
[2023-12-20] MEDS: iron sucrose 200 MG in sodium chloride 0.9% (100 ml) 100 ML 220 MG IV (12:45)
[2023-12-20 13:45] VITALS: BP 127/76; PULSE 101; RESP 16; TEMP 36.4; O2SAT 96
== END 2024-01-02 23:59 | disposition home or self-care (01) ==
PROVIDERS: Nurse Practitioner Family; PCP Physician Assistant; Visit Provider Internal Medicine Medical Oncology
DX: C88.0 Waldenstrom macroglobulinemia (principal); Z53.9 Procedure and treatment not carried out, unspecified reason
CPT/HCPCS: 36415; 80053; 82607; 82728; 83010; 83540; 83550; 83615; 84443; 85007; 85025; 85045; 85651; 86140; 86850; 86900; 96365; 99214; J1756; J7050

== ENCOUNTER 2023-12-20 08:32 | Emergency (ER) | payer MEDICARE, MEDICAID, SELFPAY ==
[2023-12-20 08:45] VITALS: BP 113/63; PULSE 98; RESP 17; TEMP 36.6; O2SAT 96; BMI 22.0
[2023-12-20 09:07] VITALS: BP 106/64; PULSE 102; RESP 16; O2SAT 98
--- NOTE | 2023-12-20 09:28 | W.ED.BACK ---
HPI - Back Pain/Injury General: Chief Complaint: Back Pain/Injury Stated Complaint: Fall, sent from Onc Time Seen by Provider: 12/20/23 09:14 Source: patient Mode of arrival: ambulatory History of Present Illness: 63-year-old female presents emergency room she was at oncology clinic and she had fallen recently she was getting infusions today. She fell 3 days ago hit her back according to their office notes then she fell again last night and hit her left ribs. She is complaining of severe pain in the advised to present to the emergency room. I asked her about her fall she said she falls frequently use a ground-level mechanical falls. No fever sweats chills no hemoptysis. She denies any other trauma she is not on any anticoagulants. MD elicited complaint: back pain Associated symptoms: Deny abdominal pain, chills, dysuria, fever(s) or urinary urgency Review of Systems Const: Denies: fever(s) or chills Card: Denies: chest pain Resp: Denies: dyspnea GI: Denies: abdominal pain : Denies: dysuria, urinary frequency or urinary urgency Musc: Reports: back pain; Denies: neck pain Skin/Breast: Denies: rash PFSH ED PFSH: Medical History Helicobacter pylori gastritis Recurrent pneumonia Hypersomnolence Lumbar post-laminectomy syndrome Cervical post-laminectomy syndrome Peripheral neuropathy Hypothyroidism Restless leg syndrome Anxiety Degenerative arthritis Fibromyalgia Hyperlipidemia Hypertension Waldenstrom macroglobulinemia Lumbar radiculopathy Carpal tunnel syndrome, bilateral upper limbs Surgical History Hx of colonoscopy History of esophagogastroduodenoscopy (EGD) H/O section x 2 History of facial surgery 1991 Following trauma, x3 History of shoulder surgery Right rotator cuff repair x 2 History of cervical spinal surgery [facility]: 02/14/2017 Posterolateral cervical fusion C2-C6 03/02/2016 C3-C4 ACDFF, removal of prior anterior cervical plate, C4-C5 2004 C4-C5 ACDFF All operative reports scanned to chart History of lumbar surgery 2013, 2011 and 2010 [facility]: Lumbar fusion/fixation Family History Mother Lung disease Father Myocardial infarction Hypertension Diabetes Social History Smoking and tobacco/nicotine status: former use of tobacco/nicotine (quit 2006, smoked 30+ years) Quit status (tobacco/nicotine): has quit using Year quit tobacco: 2006 Former quit date comment: 1 ppd x 35 years Alcohol intake: current Alcohol intake frequency: few times a week Substance/Drug Use: never Household members: significant other Marital status: Life Partner Current occupational status: disabled Physical Exam Const: COMMON NORMALS: no acute distress GENERAL APPEARANCE: cooperative and comfortable ORIENTATION/CONSCIOUSNESS: Yes awake, Yes oriented to person, Yes oriented to place and Yes oriented to time HENMT: COMMON NORMALS: normocephalic, atraumatic and hearing grossly normal bilaterally HEAD & SCALP: normocephalic and atraumatic Resp: COMMON NORMALS: normal respiratory effort, No retractions, No use of accessory muscles and clear to auscultation bilaterally AUSCULTATION: clear to auscultation bilaterally Cardio: COMMON NORMALS: regular rate, regular rhythm and No murmurs present (Cardio) RATE: regular rate RHYTHM: regular rhythm GI: COMMON NORMALS: Soft to palpation and No hepatosplenomegaly present AUSCULTATION: Yes normoactive bowel sounds PALPATION: Yes Soft to palpation, No Tenderness to palpation present (GI), No Guarding due to palpation present (GI) and Yes No hepatosplenomegaly present Extremity: COMMON NORMALS: normal to inspection, capillary refill normal, no clubbing, cyanosis or edema, no calf tenderness and no pedal edema Neuro: SENSORIUM/ORIENTATION: Yes oriented to person, Yes oriented to place and Yes oriented to time Skin: COMMON NORMALS: no rashes or lesions noted GENERAL SKIN EXAM: no rashes or lesions noted Course Vital Signs: Vital signs: Vital Signs Temperature 97.9 F 12/20/23 08:45 Pulse Rate 102 H 12/20/23 09:07 Respiratory Rate 16 12/20/23 09:07 Blood Pressure 106/64 12/20/23 09:07 Pulse Oximetry 98 12/20/23 09:07 Oxygen Delivery Me thod Room Air 12/20/23 09:07 MDM - Back Pain/Injury Medical Decision Making Imaging negative. No signs of fracture on the ribs or the spine. There is some bruising present as noted on exam no vesicular rash. Reviewed findings with the patient. Will discharge home continues hydrocodone previously prescribed follow-up as needed Medical Records I reviewed the patient's medical records. Labs I reviewed the patient's lab results. Radiology Impressions Lumbar Spine CT 12/20/23 09:29 IMPRESSION: 1. Extensive postoperative changes. 2. No acute traumatic injury. Ribs X-Ray 12/20/23 10:40 IMPRESSION: No acute findings. All radiology interpretation(s) finalized by discharge Discharge Plan Discharge Patient Disposition: Home Clinical Impression: Contusion of rib on left side Condition: Stable Prescriptions: New hydrocodone-acetaminophen 5-325 mg tablet 1 tab PO Q6H PRN (Reason: pain) Qty: 10 0RF Discontinued acetaminophen-codeine 300-30 mg tablet 1 tab PO Q4H PRN (Reason: pain) Qty: 30 0RF No Action (DME) Seated walker See Rx Instructions .Route .MEDSUPPLY Qty: 1 0RF Rx Instructions: As directed folic acid 1 mg tablet 1 mg PO QAM zanubrutinib 80 mg capsule 160 mg PO BID Qty: 120 11RF gabapentin 300 mg capsule See Rx Instructions .ROUTE .COMPLEX Qty: 270 3RF Dose Instruction: TAKE ONE CAPSULE BY MOUTH IN THE MORNING AND THEN TAKE TWO CAPSULES BY MOUTH IN THE EVENING Rx Instructions: TAKE ONE CAPSULE BY MOUTH IN THE MORNING AND THEN TAKE TWO CAPSULES BY MOUTH IN THE EVENING potassium chloride 20 mEq tablet extended release 20 meq PO QAM Qty: 90 0RF pantoprazole 40 mg tablet,delayed release (DR/EC) 40 mg PO QAM Qty: 30 0RF lorazepam 0.5 mg tablet 0.5 - 1.5 mg PO BEDTIME Qty: 90 0RF atorvastatin [Lipitor] 20 mg Tablet 20 mg PO QPM allopurinol 300 mg Tablet 300 mg PO QAM cyclobenzaprine 10 mg Tablet See Rx Instructions .ROUTE .COMPLEX Rx Instructions: Take 10 mg by mouth in the morning and 20mg at bedtime. ascorbic acid (vitamin C) [Vitamin C] 500 mg Tablet 500 mg PO BID calcium carbonate-vitamin D3 [Calcium 500 + D] 500 mg(1,250mg) -200 unit Tablet See Rx Instructions .ROUTE .COMPLEX Rx Instructions: Take 1 tablet by mouth in the morning and 2 tablets in the evening. sucralfate [Carafate] 1 gram Tablet 1 g PO BID levothyroxine 25 mcg Tablet 25 mcg PO QAM Qty: 30 0RF thiamine HCl (vitamin B1) 100 mg tablet 100 mg PO QAM metoprolol tartrate 50 mg tablet 50 mg PO BID ropinirole 1 mg tablet 2 mg PO BEDTIME trazodone 100 mg tablet 100 mg PO BEDTIME docusate sodium 100 mg capsule 100 mg PO BID hydrochlorothiazide 12.5 mg tablet 12.5 mg PO DAILY Discharge Orders: Discharge ED (Routine); Ordered 12/20/23 Ordered By: Emerson Santamaria Referrals: Lucy Dean PA [Primary Care Provider] - Discharge Diet: Usual diet Discharge Activity: Resume usual activity Patient Instructions: Rib Contusion (ED), Opioid Safety, Pain Management Activity Restrictions/Additional Instructions: Thank you for choosing [facility] for your healthcare needs today. Please realize this is an emergency room and that we are providing you with a medical screening exam and this may not be complete and all inclusive of all the testing and or work up that you may need to determine your ailment or severity of your illness. It is very important that you follow up as instructed or that you return to the Emergency Department should you have concerns or if your condition changes or worsens in any way. Coding Level of Care Code ED Mottle Lay Up Operator for Luis Walden
--- NOTE | 2023-12-20 09:29 | CTR_ITS ---
PROCEDURE INFORMATION: Exam: CT Lumbar Spine Without Contrast Exam date and time: 12/20/2023 9:49 AM Age: 63 years old Clinical indication: Injury or trauma; Fall; Blunt trauma (contusions or hematomas); Injury date: 12/20/23; Prior surgery; Surgery date: 6+ months; Surgery type: Lumbar; Patient HX: Cancer (type)--lymphoma, leukemia, bone; Additional info: Back pain fall TECHNIQUE: Imaging protocol: Computed tomography of the lumbar spine without contrast. Radiation optimization: All CT scans at this facility use at least one of these dose optimization techniques: automated exposure control; mA and/or kV adjustment per patient size (includes targeted exams where dose is matched to clinical indication); or iterative reconstruction. COMPARISON: CT lumbar spine wo con* [id number] 05/26/2020 11:07 AM RADIATION DOSE METRICS: Total DLP (mGy-cm): 359.68 FINDINGS: Bones/joints: Anterior and posterior fusion L4-L5. Stable mild anterolisthesis of L4 on L5. Stable slight loss of height of upper L5. Disc space narrowing and mild spurring at L1-L2 with a minimal retrolisthesis of L1 on L2. No fracture, lytic, or sclerotic bone lesion. Kidneys and ureters: Nonobstructing left renal calculus. Vasculature: Heavy arterial calcifications. Soft tissues: Unremarkable. Other findings: No significant change since 05/26/2020. CT/CT lumbar spine wo con* [id number] IMPRESSION: 1. Extensive postoperative changes. 2. No acute traumatic injury.
--- NOTE | 2023-12-20 10:40 | XRR_ITS ---
PROCEDURE INFORMATION: Exam: XR Left Ribs with PA Chest Exam date and time: 12/20/2023 10:48 AM Age: 63 years old Clinical indication: Injury or trauma; Fall; Rib area, left side; Blunt trauma TECHNIQUE: Imaging protocol: Radiologic exam of the left ribs with PA chest. Views: 3 views COMPARISON: CR XR chest 1V portable [id number] 09/12/2023 2:27 PM FINDINGS: Lungs: Mild discoid atelectasis in the left lower lobe. Pleural spaces: Unremarkable. No pleural effusion. No pneumothorax. Heart/Mediastinum: Unremarkable. No cardiomegaly. Bones/joints: Incompletely imaged cervical fusion. XR/XR ribs LT mn 3V w CXR1V [id number] IMPRESSION: No acute findings.
[2023-12-20] MEDS: morphine 4 mg/mL SDV 1 mL 2 MG IM (11:40)
[2023-12-20] MEDS: ketorolac 30 mg/mL INJ IM (11:40)
== END 2023-12-20 11:55 | disposition home or self-care (01) ==
PROVIDERS: Emergency Provider Family Medicine; PCP Physician Assistant
DX: S20.212A Contusion of left front wall of thorax, initial encounter (principal); Z87.891 Personal history of nicotine dependence; E78.5 Hyperlipidemia, unspecified; I10 Essential (primary) hypertension; W19.XXXA Unspecified fall, initial encounter
CPT/HCPCS: 71101; 72131; 96372; 99284; J1885; J2270

== ENCOUNTER 2024-01-19 08:49 | Oncology outpatient (recurring) (ONCR) | payer MEDICARE, MEDICAID, SELFPAY ==
[2024-01-04 08:02] LABS: Basophils % 0.5 %; Eosinophils # 0.1 10^3/uL (0.0-0.8); Eosinophils % 1.1 %; Hematocrit 28.3 % (36-47); Lymphocytes # 5.6 10^3/uL (0.8-4.8); Mean Corpuscular HGB Conc 32.2 g/dL (30-55); Mean Corpuscular Hemoglobin 29.6 pg (27-33); Mean Corpuscular Volume 92.2 fl (85-98); Mean Platelet Volume 9.1 fL (7.4-10.4); Monocytes # 1.4 10^3/uL (0.2-0.9); Monocytes % 16.6 %; Neutrophils # 1.37 10^3/uL (1.8-7.7); Neutrophils % 15.9 %; Nucleated Red Blood Cells % 0.2 %; Platelet Count 87 10^3/cmm (157-399); Red Blood Count 3.07 10^6/uL (3.85-5.65); Red Cell Distribution Width 18.6 % (12.1-15.1); White Blood Count 8.56 10^3/uL (3.29-11.43)
[2024-01-04 08:17] LABS: Alanine Aminotransferase 17 U/L (0-33); Albumin Level 3.6 g/dL (3.5-5.2); Alkaline Phosphatase 120 U/L (35-105); Anion Gap 14.2 (5-19); Aspartate Amino Transferase 42 U/L (0-32); Blood Urea Nitrogen 9 mg/dL (8-23); Calcium 9.3 mg/dL (8.5-10.5); Carbon Dioxide 26 mmol/L (22-29); Chloride 90 mmol/L (98-107); Globulin 4.8 g/dL (1.3-4.6); Glomerular Filtration Rate 72.7 mL/min (90-130); Glucose 88 mg/dL (65-115); Osmolality Calculated 260 mOsm/kg (285-295); Potassium 4.2 mmol/L (3.5-5.1); Sodium 126 mmol/L (136-145); Total Bilirubin 0.4 mg/dL (0.15-1.2); Total Protein 8.4 g/dL (6.6-8.7)
[2024-01-04 09:02] LABS: Slide Review Slide Review Perform
[2024-01-19 09:29] LABS: Basophils % 0.4 %; Eosinophils # 0.1 10^3/uL (0.0-0.8); Eosinophils % 0.7 %; Hematocrit 28.7 % (36-47); Lymphocytes # 5.3 10^3/uL (0.8-4.8); Lymphocytes % 65.9 %; Mean Corpuscular HGB Conc 32.4 g/dL (30-55); Mean Corpuscular Hemoglobin 29.6 pg (27-33); Mean Corpuscular Volume 91.4 fl (85-98); Mean Platelet Volume 10.5 fL (7.4-10.4); Monocytes # 1.2 10^3/uL (0.2-0.9); Monocytes % 14.3 %; Neutrophils # 1.45 10^3/uL (1.8-7.7); Neutrophils % 18.1 %; Nucleated Red Blood Cells % 0 %; Platelet Count 80 10^3/cmm (157-399); Red Blood Count 3.14 10^6/uL (3.85-5.65); White Blood Count 8.03 10^3/uL (3.29-11.43)
[2024-01-19 09:44] LABS: Alanine Aminotransferase 19 U/L (0-33); Albumin Level 3.5 g/dL (3.5-5.2); Alkaline Phosphatase 112 U/L (35-105); Anion Gap 15.2 (5-19); Aspartate Amino Transferase 51 U/L (0-32); Blood Urea Nitrogen 9 mg/dL (8-23); Calcium 8.7 mg/dL (8.5-10.5); Carbon Dioxide 26 mmol/L (22-29); Chloride 86 mmol/L (98-107); Creatinine Clr Calc Pharmacy 56.9098; Globulin 4.8 g/dL (1.3-4.6); Glomerular Filtration Rate 72.7 mL/min (90-130); Glucose 90 mg/dL (65-115); Iron 84 ug/dL (37-145); Osmolality Calculated 254 mOsm/kg (285-295); Percent Saturation 36.8 % (20-50); Potassium 4.2 mmol/L (3.5-5.1); Sodium 123 mmol/L (136-145); Total Bilirubin 0.6 mg/dL (0.15-1.2); Total Iron Binding Capacity 228 mcg/dl; Total Protein 8.3 g/dL (6.6-8.7); Unsaturated Iron Binding 144 ug/dL (112-347)
[2024-01-19 09:58] LABS: Ferritin 1246 ng/mL (15-150)
[2024-01-19 10:03] LABS: Slide Review Slide Review Perform
[2024-01-20 09:05] LABS: PROTEIN, TOTAL 7.9 g/dL (6.1-8.1)
[2024-01-22 09:55] LABS: ABNORMAL PROTEIN BAND 1 2.5 g/dL (NONE DETECTED); ALBUMIN 3.3 g/dL (3.8-4.8); ALPHA 1 GLOBULIN 0.4 g/dL (0.2-0.3); ALPHA 2 GLOBULIN 0.7 g/dL (0.5-0.9); BETA 1 GLOBULIN 0.4 g/dL (0.4-0.6); BETA 2 GLOBULIN 0.3 g/dL (0.2-0.5); GAMMA GLOBULIN 2.8 g/dL (0.8-1.7)
== END 2024-02-02 23:59 | disposition home or self-care (01) ==
PROVIDERS: Nurse Practitioner Family; PCP Physician Assistant; Visit Provider Internal Medicine Medical Oncology
DX: D50.9 Iron deficiency anemia, unspecified; Z53.9 Procedure and treatment not carried out, unspecified reason
CPT/HCPCS: 36415; 80053; 82728; 83540; 83550; 84155; 84165; 85025; 86334; 99215

== ENCOUNTER 2024-02-27 15:00 | Oncology outpatient (recurring) (ONCR) | payer MEDICARE, MEDICAID, SELFPAY ==
[2024-02-13 10:42] LABS: Basophils # 0.1 10^3/uL (0.0-0.1); Basophils % 0.8 %; Eosinophils # 0.1 10^3/uL (0.0-0.8); Eosinophils % 1.4 %; Lymphocytes % 63.3 %; Mean Corpuscular HGB Conc 31.9 g/dL (30-55); Mean Corpuscular Hemoglobin 30.4 pg (27-33); Mean Corpuscular Volume 95.2 fl (85-98); Mean Platelet Volume 9.1 fL (7.4-10.4); Monocytes # 0.9 10^3/uL (0.2-0.9); Monocytes % 13.5 %; Neutrophils % 20.4 %; Nucleated Red Blood Cells % 0 %; Platelet Count 87 10^3/cmm (157-399); Red Blood Count 3.36 10^6/uL (3.85-5.65); Red Cell Distribution Width 18.7 % (12.1-15.1); White Blood Count 6.37 10^3/uL (3.29-11.43)
[2024-02-13 11:00] LABS: Alanine Aminotransferase 29 U/L (0-33); Albumin Level 3.7 g/dL (3.5-5.2); Alkaline Phosphatase 107 U/L (35-105); Anion Gap 13.3 (5-19); Aspartate Amino Transferase 55 U/L (0-32); Blood Urea Nitrogen 6 mg/dL (8-23); Calcium 9.7 mg/dL (8.5-10.5); Carbon Dioxide 28 mmol/L (22-29); Chloride 98 mmol/L (98-107); Globulin 4.7 g/dL (1.3-4.6); Glomerular Filtration Rate 101.3 mL/min (90-130); Glucose 81 mg/dL (65-115); Osmolality Calculated 277 mOsm/kg (285-295); Potassium 4.3 mmol/L (3.5-5.1); Sodium 135 mmol/L (136-145); Total Bilirubin 0.5 mg/dL (0.15-1.2); Total Protein 8.4 g/dL (6.6-8.7)
[2024-02-21 09:37] LABS: Basophils % 0.7 %; Eosinophils # 0.1 10^3/uL (0.0-0.8); Hematocrit 31.4 % (36-47); Lymphocytes # 2.9 10^3/uL (0.8-4.8); Lymphocytes % 47.8 %; Mean Corpuscular HGB Conc 32.5 g/dL (30-55); Mean Corpuscular Hemoglobin 31.1 pg (27-33); Mean Corpuscular Volume 95.7 fl (85-98); Mean Platelet Volume 10.3 fL (7.4-10.4); Monocytes # 0.9 10^3/uL (0.2-0.9); Monocytes % 15.5 %; Neutrophils # 2.11 10^3/uL (1.8-7.7); Neutrophils % 34.7 %; Nucleated Red Blood Cells % 0 %; Platelet Count 64 10^3/cmm (157-399); Red Blood Count 3.28 10^6/uL (3.85-5.65); Red Cell Distribution Width 18.4 % (12.1-15.1); White Blood Count 6.07 10^3/uL (3.29-11.43)
[2024-02-21 09:54] LABS: Alanine Aminotransferase 17 U/L (0-33); Albumin Level 3.6 g/dL (3.5-5.2); Alkaline Phosphatase 71 U/L (35-105); Blood Urea Nitrogen 8 mg/dL (8-23); Calcium 9.2 mg/dL (8.5-10.5); Carbon Dioxide 25 mmol/L (22-29); Chloride 96 mmol/L (98-107); Creatinine Clr Calc Pharmacy 72.5724; Globulin 4.5 g/dL (1.3-4.6); Glomerular Filtration Rate 101.3 mL/min (90-130); Glucose 89 mg/dL (65-115); Osmolality Calculated 276 mOsm/kg (285-295); Sodium 134 mmol/L (136-145); Total Bilirubin 0.4 mg/dL (0.15-1.2); Total Protein 8.1 g/dL (6.6-8.7)
[2024-02-21 09:57] LABS: Anion Gap 16.4 (5-19); Aspartate Amino Transferase 37 U/L (0-32); Potassium 3.4 mmol/L (3.5-5.1)
[2024-02-21 10:23] LABS: Slide Review Slide Review Perform
== END 2024-03-03 23:59 | disposition home or self-care (01) ==
PROVIDERS: Nurse Practitioner Family; PCP Physician Assistant; Visit Provider Internal Medicine Medical Oncology
DX: Z53.9 Procedure and treatment not carried out, unspecified reason (principal)
CPT/HCPCS: 36415; 80053; 85025; 99214

== ENCOUNTER 2024-03-19 11:45 | Oncology outpatient (recurring) (ONCR) | payer MEDICARE, MEDICAID, SELFPAY ==
--- NOTE | 2024-03-13 11:30 | MM_ITS ---
WS: [id number] Bilateral screening 3D tomosynthesis digital mammogram, 03/13/2024 Clinical Data: screening mammo Comparison: 10/28/2022, 10/20/2021, 08/12/2020, 04/01/2020, 09/10/2019, 07/18/2019, 12/25/2017, 10/14/2014, 1 , 05/13/2011, 10/26/2006. Findings: The breast parenchymal pattern shows fibroglandular tissue. No spiculated masses or clustered calcifi cations are seen. There are no secondary signs of carcinoma. MM/[place] [id number] Impression: 1. Negative bilateral mammogram unchanged. 2. Recommend annual screening mammograms. BIRADS: 1-Negative FOLLOW UP: 1 Year Follow-up The CAD packing checker was used.
[2024-03-19 11:28] LABS: Basophils # 0.1 10^3/uL (0.0-0.1); Basophils % 1.2 %; Eosinophils # 0.1 10^3/uL (0.0-0.8); Eosinophils % 2.1 %; Hematocrit 35.6 % (36-47); Lymphocytes # 3.1 10^3/uL (0.8-4.8); Mean Corpuscular HGB Conc 32.6 g/dL (30-55); Mean Corpuscular Hemoglobin 31.6 pg (27-33); Mean Platelet Volume 9.6 fL (7.4-10.4); Monocytes # 0.8 10^3/uL (0.2-0.9); Monocytes % 14.6 %; Neutrophils # 1.18 10^3/uL (1.8-7.7); Neutrophils % 22.7 %; Nucleated Red Blood Cells % 0 %; Platelet Count 112 10^3/cmm (157-399); Red Blood Count 3.67 10^6/uL (3.85-5.65); Red Cell Distribution Width 15.6 % (12.1-15.1)
[2024-03-19 11:43] LABS: Alanine Aminotransferase 29 U/L (0-33); Albumin Level 3.9 g/dL (3.5-5.2); Alkaline Phosphatase 73 U/L (35-105); Aspartate Amino Transferase 50 U/L (0-32); Blood Urea Nitrogen 7 mg/dL (8-23); Calcium 9.4 mg/dL (8.5-10.5); Carbon Dioxide 26 mmol/L (22-29); Chloride 92 mmol/L (98-107); Globulin 4.5 g/dL (1.3-4.6); Glomerular Filtration Rate 101.3 mL/min (90-130); Glucose 93 mg/dL (65-115); Immunoglobulin IGA 52 mg/dL (70-400); Immunoglobulin IGG 646 mg/dL (700-1600); Osmolality Calculated 268 mOsm/kg (285-295); Sodium 130 mmol/L (136-145); Total Bilirubin 0.7 mg/dL (0.15-1.2); Total Protein 8.4 g/dL (6.6-8.7)
[2024-03-19 11:47] LABS: Anion Gap 16.4 (5-19); Potassium 4.4 mmol/L (3.5-5.1)
[2024-03-19 11:48] LABS: Lactate Dehydrogenase 186 U/L (135-214)
[2024-03-19 12:46] LABS: Immunoglobulin IGM > 4866 mg/dL (40-230)
[2024-03-20 12:25] LABS: PROTEIN, TOTAL 7.9 g/dL (6.1-8.1)
[2024-03-21 09:50] LABS: ABNORMAL PROTEIN BAND 1 2.1 g/dL (NONE DETECTED); ALBUMIN 3.9 g/dL (3.8-4.8); ALPHA 1 GLOBULIN 0.3 g/dL (0.2-0.3); ALPHA 2 GLOBULIN 0.6 g/dL (0.5-0.9); BETA 1 GLOBULIN 0.4 g/dL (0.4-0.6); BETA 2 GLOBULIN 0.3 g/dL (0.2-0.5); GAMMA GLOBULIN 2.4 g/dL (0.8-1.7)
== END 2024-04-03 23:59 | disposition home or self-care (01) ==
PROVIDERS: PCP Physician Assistant; Visit Provider Nurse Practitioner Family
DX: Z53.9 Procedure and treatment not carried out, unspecified reason (principal); C88.0 Waldenstrom macroglobulinemia
CPT/HCPCS: 36415; 77063; 77067; 80053; 82784; 83615; 84155; 84165; 85025; 99214

== ENCOUNTER 2024-04-29 10:06 | Oncology outpatient (recurring) (ONCR) | payer MEDICARE, MEDICAID, SELFPAY ==
[2024-04-04 13:02] LABS: Hematocrit 29.6 % (36-47); Mean Corpuscular HGB Conc 33.1 g/dL (30-55); Mean Corpuscular Hemoglobin 31.5 pg (27-33); Mean Corpuscular Volume 95.2 fl (85-98); Mean Platelet Volume 9.1 fL (7.4-10.4); Platelet Count 52 10^3/cmm (157-399); Red Blood Count 3.11 10^6/uL (3.85-5.65); Red Cell Distribution Width 14.6 % (12.1-15.1); White Blood Count 10.92 10^3/uL (3.29-11.43)
[2024-04-04 13:27] LABS: Alanine Aminotransferase 17 U/L (0-33); Albumin Level 3.4 g/dL (3.5-5.2); Alkaline Phosphatase 134 U/L (35-105); Anion Gap 16.4 (5-19); Aspartate Amino Transferase 40 U/L (0-32); Blood Urea Nitrogen 7 mg/dL (8-23); Calcium 8.6 mg/dL (8.5-10.5); Carbon Dioxide 24 mmol/L (22-29); Chloride 95 mmol/L (98-107); Glomerular Filtration Rate 101.3 mL/min (90-130); Glucose 105 mg/dL (65-115); Lactate Dehydrogenase 220 U/L (135-214); Osmolality Calculated 270 mOsm/kg (285-295); Potassium 4.4 mmol/L (3.5-5.1); Sodium 131 mmol/L (136-145); Total Bilirubin 0.4 mg/dL (0.15-1.2); Total Protein 7.4 g/dL (6.6-8.7)
[2024-04-04 13:51] LABS: Slide Review Slide Review Perform
[2024-04-04 13:52] LABS: Absolute Neutrophil 1.4 10^3/cmm (1.4-6.5); Absolute Segmented Neutrophil 1.4 10/cmm (1.6-7.1); Eosinophils 0 %; Lymphocytes 71 %; Lymphocytes Absolute 8.7 10^3/cmm (1.2-3.4); Macrocytosis Trace; Monocytes Absolute 0.8 10^3/cmm (0.1-0.6); Platelet Estimate Decreased (Normal); Segmented Neutrophils 13 %; Smudge Cells Trace; Total Cells Counted 100 (0-100)
== END 2024-05-04 23:59 | disposition home or self-care (01) ==
PROVIDERS: Internal Medicine Medical Oncology; PCP Physician Assistant; Visit Provider Nurse Practitioner Family
DX: Z53.9 Procedure and treatment not carried out, unspecified reason (principal)
CPT/HCPCS: 36415; 80053; 83615; 85007; 85025; 99214

== ENCOUNTER → 2024-05-09 10:57 | Outpatient (BNVA) | payer MEDICARE, MEDICAID, SELFPAY | PROVIDERS: PCP Physician Assistant; Visit Provider Student in an Organized Health Care Education/Training Program | DX: Z95.828 Presence of other vascular implants and grafts (principal) | CPT/HCPCS: 99204; 99214 ==

== ENCOUNTER → 2024-05-20 06:00 | Day surgery (SDC) | payer MEDICARE, MEDICAID, SELFPAY | LOC: OR 06-10 10:03 | PROVIDERS: PCP Physician Assistant; Visit Provider Student in an Organized Health Care Education/Training Program | DX: Z01.818 Encounter for other preprocedural examination (principal) | CPT/HCPCS: J2250; J2704; J3010 ==

== ENCOUNTER 2024-05-20 08:29 | Day surgery (SDC) | payer MEDICARE, MEDICAID, SELFPAY ==
--- NOTE | 2024-05-18 17:21 | P.ANESASSM_ITS ---
Pre-Anesthetic Assessment Height/Weight: Height 4 ft 11 in Operation Date: 05/20/24 10:35 Proposed Procedures p Portacath Placement [id number], [id number](Not Applicable) - Zackary Escalante MD Anesthetic Plan ASA status: 4 Anesthesia: MAC Other: No prior issues with anesthesia NPO since midnight Patient quit smoking in 2006, occasional alcohol use GERD, controlled on pantoprazole Patient prescribed prochlorperazine for nausea/vomiting Hypothyroidism on Synthroid Chronic pain Hypertension on hydrochlorothiazide Labs reviewed 04/04. Patient has chronically low sodium, most recently 131. Will repeat today Plan for MAC anesthesia Medications/Allergies Home Medications Medication Instructions Recorded Confirmed Last Taken Type ascorbic acid (vitamin C) 500 mg 500 mg PO BID 12/05/19 05/17/24 05/19/24 History tablet (Vitamin C) calcium carbonate 500 mg-vitamin 1 tab PO DAILY 12/05/19 05/17/24 05/19/24 History D3 5 mcg (200 unit) tablet (Calcium 500 + D) cyclobenzaprine 10 mg tablet 10 mg PO TID 12/05/19 05/17/24 05/19/24 History allopurinol 300 mg tablet 300 mg PO QAM 02/26/20 05/17/24 05/19/24 History atorvastatin 20 mg tablet (Lipitor) 20 mg PO QPM 02/26/20 05/17/24 05/19/24 History folic acid 1 mg tablet 1 mg PO QAM 05/13/20 05/17/24 05/19/24 History Seated walker #1 ea 01/27/21 05/09/24 03/17/22 Rx sucralfate 1 gram tablet (Carafate) 1 g PO BID 11/25/21 05/17/24 05/19/24 History levothyroxine 25 mcg tablet 25 mcg PO QAM #30 tabs 11/27/21 05/17/24 05/19/24 Rx gabapentin 300 mg capsule See Rx Instructions .Route 07/31/23 05/17/24 05/19/24 Rx .COMPLEX #270 caps metoprolol tartrate 50 mg tablet 50 mg PO BID 09/10/23 05/17/24 05/19/24 History hydrochlorothiazide 12.5 mg tablet 12.5 mg PO DAILY 12/20/23 05/17/24 05/19/24 History hydrocodone 5 mg-acetaminophen 325 1 tab PO Q6H PRN pain #10 tabs 12/20/23 05/20/24 1 Year Ago Rx mg tablet ~05/20/23 trazodone 100 mg tablet 100 mg PO BEDTIME 12/20/23 05/17/24 05/19/24 History prochlorperazine maleate 10 mg 10 mg PO Q6H PRN nausea and 02/05/24 05/17/24 05/19/24 Rx tablet vomiting #30 tabs lorazepam 0.5 mg tablet 0.5 - 1.5 mg (1 - 3 x 0.5 mg) PO 03/11/24 05/20/24 3 Weeks Ago Rx BEDTIME #90 tabs ~04/29/24 ropinirole 0.25 mg tablet 0.25 mg PO BEDTIME 05/09/24 05/17/24 05/19/24 History pantoprazole 40 mg tablet,delayed 40 mg PO DAILY 05/17/24 05/17/24 05/19/24 History release ibuprofen 400 mg tablet 400 mg PO Q6H PRN pain #20 tabs 05/20/24 Unknown Rx Allergies Allergy/AdvReac Type Severity Reaction Status Date / Time hydrocortisone Allergy Severe Elevated Verified 05/09/24 11:13 [From Cortizone-10] heart rate hydromorphone [From Dilaudid] Allergy Severe Hallucinati Verified 05/09/24 11:13 ons meperidine [From Demerol] Allergy Severe Excessive Verified 05/09/24 11:13 vomitting morphine Allergy Severe Heart rate Verified 05/09/24 11:13 drops cortisone Allergy Unknown headache Verified 05/09/24 11:13 diphenhydramine Allergy ADR/ALGY-Pa Verified 05/09/24 11:13 [From Benadryl] lpitations haloperidol [From Haldol] Allergy difficulty Verified 05/09/24 11:13 breathing PFSH Anesthesia Medical History Helicobacter pylori gastritis Recurrent pneumonia Hypersomnolence Lumbar post-laminectomy syndrome Cervical post-laminectomy syndrome Peripheral neuropathy Hypothyroidism Restless leg syndrome Anxiety Degenerative arthritis Fibromyalgia Hyperlipidemia Hypertension Waldenstrom macroglobulinemia Lumbar radiculopathy Carpal tunnel syndrome, bilateral upper limbs Surgical History History of cholecystectomy (09/11/23) Hx of colonoscopy History of esophagogastroduodenoscopy (EGD) H/O section x 2 History of facial surgery 1992 Following trauma, x3 History of shoulder surgery Right rotator cuff repair x 2 History of cervical spinal surgery [facility]: 02/14/2017 Posterolateral cervical fusion C2-C6 03/02/2016 C3-C4 ACDFF, removal of prior anterior cervical plate, C4-C5 2004 C4-C5 ACDFF All operative reports scanned to chart History of lumbar surgery 2013, 2011 and 2010 [facility]: Lumbar fusion/fixation Family History Mother Lung disease Father Myocardial infarction Hypertension Diabetes Social History Smoking and tobacco/nicotine status: never used tobacco/nicotine Quit status (tobacco/nicotine): has quit using Year quit tobacco: 2006 Former quit date comment: 1 ppd x 35 years Alcohol intake: current Alcohol intake frequency: few times a week Substance/Drug Use: never Household members: significant other Marital status: Life Partner Current occupational status: disabled Data Anesthesia 05/20/24 10:09 Cardiac Studies: 2 Echocardiogram 07/03/23
[2024-05-20] VITALS (9 sets, daily range): BP systolic 97–117; BP diastolic 55–71; PULSE 87–101; RESP 18–20; TEMP 36.1–36.6; O2SAT 94–98; BMI 20.9
--- NOTE | 2024-05-20 08:46 | SC_ITS ---
WS: [id number] C-ARM RADIOGRAPHS CHEST; 3 IMAGES HISTORY: port placement COMPARISON: None available. Port-A-Cath projects over the RIGHT chest with the central terminal position of the catheter not iden tified. Catheter overlies the spine. SC/C-arm FL for CVA [id number] IMPRESSION: Intraoperative imaging during Port-A-Cath placement. The termination of the cat heter cannot be determined by C-arm. Consider additional evaluation by chest ra diograph following the procedure.
[2024-05-20] MEDS: sodium chloride 0.9% 1,000 ML 30 ML IV (09:03)
[2024-05-20] MEDS: scopolamine 1.5 Patch 1 PATCH TRANSDERMA (09:10)
[2024-05-20 10:34] LABS: Anion Gap 14.9 (5-19); Blood Urea Nitrogen 8 mg/dL (8-23); Calcium 8.8 mg/dL (8.5-10.5); Carbon Dioxide 25 mmol/L (22-29); Chloride 96 mmol/L (98-107); Glomerular Filtration Rate 101.3 mL/min (90-130); Glucose 87 mg/dL (65-115); Osmolality Calculated 272 mOsm/kg (285-295); Potassium 3.9 mmol/L (3.5-5.1); Sodium 132 mmol/L (136-145)
--- NOTE | 2024-05-20 12:19 | P.HP_ITS ---
Same Day Surgery H&P Indication for Procedure/HPI DATE OF PROCEDURE: May 20, 2024 CHIEF COMPLAINT/INDICATIONFOR SURGICAL PROCEDURE: port for chemotherapy PREOP DIAGNOSIS: port for chemotherapy PLANNED PROCEDURE: Operation Date: 05/20/24 11:20 Proposed Procedures p Portacath Placement [id number], Z95.828(Not Applicable) - Zackary Escalante MD Medications/Allergies* Home Medications Medication Instructions Recorded Confirmed Type ascorbic acid (vitamin C) 500 mg 500 mg PO BID 12/05/19 05/17/24 History tablet (Vitamin C) calcium carbonate 500 mg-vitamin 1 tab PO DAILY 12/05/19 05/17/24 History D3 5 mcg (200 unit) tablet (Calcium 500 + D) cyclobenzaprine 10 mg tablet 10 mg PO TID 12/05/19 05/17/24 History allopurinol 300 mg tablet 300 mg PO QAM 02/26/20 05/17/24 History atorvastatin 20 mg tablet (Lipitor) 20 mg PO QPM 02/26/20 05/17/24 History folic acid 1 mg tablet 1 mg PO QAM 05/13/20 05/17/24 History sucralfate 1 gram tablet (Carafate) 1 g PO BID 11/25/21 05/17/24 History metoprolol tartrate 50 mg tablet 50 mg PO BID 09/10/23 05/17/24 History hydrochlorothiazide 12.5 mg tablet 12.5 mg PO DAILY 12/20/23 05/17/24 History trazodone 100 mg tablet 100 mg PO BEDTIME 12/20/23 05/17/24 History ropinirole 0.25 mg tablet 0.25 mg PO BEDTIME 05/09/24 05/17/24 History pantoprazole 40 mg tablet,delayed 40 mg PO DAILY 05/17/24 05/17/24 History release Allergies/Adverse Reactions Allergy/AdvReac Type Severity Reaction Status Date / Time hydrocortisone Allergy Severe Elevated Verified 05/09/24 11:13 [From Cortizone-10] heart rate hydromorphone [From Dilaudid] Allergy Severe Hallucinati Verified 05/09/24 11:13 ons meperidine [From Demerol] Allergy Severe Excessive Verified 05/09/24 11:13 vomitting morphine Allergy Severe Heart rate Verified 05/09/24 11:13 drops cortisone Allergy Unknown headache Verified 05/09/24 11:13 diphenhydramine Allergy ADR/ALGY-Pa Verified 05/09/24 11:13 [From Benadryl] lpitations haloperidol [From Haldol] Allergy difficulty Verified 05/09/24 11:13 breathing Current Medications: Generic Name Dose Route Start Last Admin Trade Name Freq PRN Reason Stop Dose Admin Sodium Chloride 1,000 mls @ 30 mls/hr 05/20/24 09:00 05/20/24 09:03 Sodium Chloride 0.9% IV 05/21/24 08:59 30 mls/hr .Q24H ESTUARDO Administration Pertinent History/Comorbid Conditions* Medical History (Updated 12/28/23 @ 00:01 by BEATA Peterson) Helicobacter pylori gastritis Recurrent pneumonia Hypersomnolence Lumbar post-laminectomy syndrome Cervical post-laminectomy syndrome Peripheral neuropathy Hypothyroidism Restless leg syndrome Anxiety Degenerative arthritis Fibromyalgia Hyperlipidemia Hypertension Waldenstrom macroglobulinemia Lumbar radiculopathy Carpal tunnel syndrome, bilateral upper limbs Surgical History (Updated 03/23/24 @ 11:34 by Robin Solorzano MD) History of cholecystectomy (09/11/23) Hx of colonoscopy History of esophagogastroduodenoscopy (EGD) H/O section x 2 History of facial surgery 1991 Following trauma, x3 History of shoulder surgery Right rotator cuff repair x 2 History of cervical spinal surgery [facility]: 02/14/2017 Posterolateral cervical fusion C2-C6 03/02/2016 C3-C4 ACDFF, removal of prior anterior cervical plate, C4-C5 2004 C4-C5 ACDFF All operative reports scanned to chart History of lumbar surgery 2013, 2011 and 2010 [facility]: Lumbar fusion/fixation Family History (Updated 04/27/20 @ 11:22 by Lizy Montiel LPN) Diabetes Father Myocardial infarction Father Lung disease Mother Hypertension Father Social History Smoking and tobacco/nicotine status: never used tobacco/nicotine Quit status (tobacco/nicotine): has quit using Year quit tobacco: 2006 Former quit date comment: 1 ppd x 35 years Alcohol intake: current Alcohol intake frequency: few times a week Substance/Drug Use: never Household members: significant other Marital status: Life Partner Current occupational status: disabled Pertinent Exam Findings alert, oriented x 3, clear to auscultation bilaterally, regular rate & rhythm and procedure specific exam findings No abnormalities on neck or chest Recommendations Surgery/Procedure today Coding Level of Care Code Acute Code for Chg Fwd Time Spent (min) 30
[2024-05-20] MEDS: ceFAZolin 2,000 mg SDV 2000 MG IVP (12:52)
[2024-05-20] MEDS: lidocaine-epi 2% PF 1:200,000 20 mL SDV XX (13:17)
[2024-05-20] MEDS: BUPivacaine 0.25% INJ 30 mL INJECTION (13:17)
[2024-05-20] MEDS: heparin, porcine 1,000 unit/mL INJ 10 mL 10000 UNIT IRRIGATION (13:17)
--- NOTE | 2024-05-20 13:53 | W.PM.BPONFUL ---
Pathology: none Implant(s): port-a-cath Anesthesia: MAC Complications: none Brief history/preop diagnosis: 63yo female who presented for port-a-cath placement for chemotherapy. Risks and benefits were discussed and the patient agreed to proceed with surgery. Full operative report: Patient was brought into the operating room and a timeout was carried out. Procedure was done under MAC. Patient was placed supine with the arms tucked and in Trendelenburg. Patient was prepped and draped in the usual sterile fashion. Using ultrasound guidance the right internal jugular vein was accessed. A guidewire was then placed down to the atriocaval junction using fluoroscopy. The finder needle was removed and the guidewire was secured. I then turned my attention to creating a pocket over the right chest. Make sure to locally infiltrated using plain lidocaine and bupivacaine at the site of the pocket and throughout the tunnel site. I confirmed adequate hemostasis at the pocket. I then proceeded to place the port that was already preassembled and flushed with heparinized saline and the chest pocket. I tunneled the catheter from the chest to the neck at the site where I accessed the internal jugular vein. I measured and adjusted the length of the catheter so it would reach the atrial caval junction. At this point, I used a dilator to dilate the tract into the internal jugular vein using fluoroscopy. I removed the guidewire and proceeded to thread the central venous catheter through the introducer. In the process, I removed the sheath as a completely pushed the catheter into the internal jugular vein. I then confirmed adequate placement of the catheter by performing intraoperative interpretation of fluoroscopy. The tip of the catheter was confirmed to be placed in the atriocaval junction. There were no kinks noted throughout the trajectory of the catheter. I then proceeded to test the port and was satisfied with its functionality. I proceeded to flushed the catheter without any issues. I then hep-locked the port. Skin was closed using deep dermal 3-0 Vicryl, subcuticular 4-0 Monocryl, and Dermabond. Patient was then transferred to PACU without any complications. Condition: stable Disposition: home
--- NOTE | 2024-05-20 14:54 | ANE.PACU2 ---
Inpatient post-anesthesia follow up: Airway intact: Yes Vital signs: Temperature 97.3 F Pulse Rate 93 Respiratory Rate 18 Blood Pressure 97/55 Pulse Oximetry 96 Oxygen Delivery Me thod Room Air Oxygen Flow Rate Fraction of Inspir ed Oxygen Hydration adequate: Yes Nausea and vomiting: No Pain level: 1 Mental status: Baseline
== END 2024-05-20 14:54 | disposition home or self-care (01) ==
PROVIDERS: Student in an Organized Health Care Education/Training Program; PCP Physician Assistant; Visit Provider Student in an Organized Health Care Education/Training Program
PROC: (CPT 36561; principal; 2024-05-20 11:10)
DX: Z45.2 Encounter for adjustment and management of vascular access device (principal); K21.9 Gastro-esophageal reflux disease without esophagitis; E03.9 Hypothyroidism, unspecified; G89.29 Other chronic pain; I10 Essential (primary) hypertension; M79.7 Fibromyalgia; E78.5 Hyperlipidemia, unspecified
CPT/HCPCS: 36561; 76000; 77001; 80048; C1788; J0690; J1644; J3490; J7030

== ENCOUNTER → 2024-05-30 07:54 | Outpatient (BNVA) | payer MEDICARE, MEDICAID, SELFPAY | PROVIDERS: PCP Physician Assistant; Visit Provider Student in an Organized Health Care Education/Training Program | DX: Z95.828 Presence of other vascular implants and grafts (principal) | CPT/HCPCS: 99214 ==

== ENCOUNTER 2024-06-03 07:01 | Oncology outpatient (recurring) (ONCR) | payer MEDICARE, MEDICAID, SELFPAY ==
[2024-06-03] VITALS (8 sets, daily range): BP systolic 100–144; BP diastolic 63–78; PULSE 81–94; RESP 16–20; TEMP 36.3–37.2; O2SAT 88–98
[2024-06-03 08:01] LABS: Basophils % 0.4 %; Eosinophils # 0.1 10^3/uL (0.0-0.8); Eosinophils % 0.7 %; Hematocrit 28.4 % (36-47); Lymphocytes # 4.9 10^3/uL (0.8-4.8); Lymphocytes % 60.6 %; Mean Corpuscular HGB Conc 32.4 g/dL (30-55); Mean Corpuscular Hemoglobin 30.7 pg (27-33); Mean Corpuscular Volume 94.7 fl (85-98); Mean Platelet Volume 9.1 fL (7.4-10.4); Monocytes # 1.7 10^3/uL (0.2-0.9); Monocytes % 21.4 %; Neutrophils # 1.27 10^3/uL (1.8-7.7); Neutrophils % 15.9 %; Nucleated Red Blood Cells % 0 %; Platelet Count 93 10^3/cmm (157-399); Red Cell Distribution Width 14.6 % (12.1-15.1); White Blood Count 8.02 10^3/uL (3.29-11.43)
[2024-06-03 08:21] LABS: Alanine Aminotransferase 18 U/L (0-33); Albumin Level 3.2 g/dL (3.5-5.2); Alkaline Phosphatase 142 U/L (35-105); Anion Gap 12.3 (5-19); Aspartate Amino Transferase 52 U/L (0-32); Blood Urea Nitrogen 9 mg/dL (8-23); Calcium 9.2 mg/dL (8.5-10.5); Carbon Dioxide 27 mmol/L (22-29); Chloride 93 mmol/L (98-107); Creatinine Clr Calc Pharmacy 71.7022; Globulin 5.4 g/dL (1.3-4.6); Glomerular Filtration Rate 101.3 mL/min (90-130); Glucose 94 mg/dL (65-115); Lactate Dehydrogenase 204 U/L (135-214); Osmolality Calculated 264 mOsm/kg (285-295); Potassium 4.3 mmol/L (3.5-5.1); Sodium 128 mmol/L (136-145); Total Bilirubin 0.5 mg/dL (0.15-1.2); Total Protein 8.6 g/dL (6.6-8.7)
[2024-06-03 09:01] LABS: Slide Review Slide Review Perform
--- NOTE | 2024-06-03 09:32 | PC.NURSE ---
Pre-Medication Allergies Puja Portillo APRN discussed benadryl and steroid allergies with patient at 0920 on 06/03/24. Patient stated she would proceed with 12 mg IVP dexamethosone and 25 mg IVP benadryl as ordered by Puja Portillo APRN and verbalized understanding. Puja Portillo APRN told this nurse of plan to continue dexamethosone and benadryl today.
[2024-06-03] MEDS: sodium chloride 0.9% 250 ML 75 ML IV (09:51)
[2024-06-03] MEDS: dexamethasone 4 mg/mL INJ 5 mL 12 MG IVP (09:52)
[2024-06-03] MEDS: acetaminophen 325 mg Tablet 650 MG PO (09:52)
[2024-06-03] MEDS: ondansetron 2 mg/ML SDV 2 mL 8 MG IVP (09:57)
[2024-06-03] MEDS: diphenhydrAMINE 50 mg/mL SDV 1mL 25 MG IVP (10:01)
[2024-06-03] MEDS: methylPREDNISolone sod succ 125 mg/2 mL INJ 60 MG IVP (11:01)
== END 2024-06-03 23:59 | disposition home or self-care (01) ==
PROVIDERS: Nurse Practitioner Family; PCP Physician Assistant; Visit Provider Internal Medicine Hematology & Oncology
DX: Z51.12 Encounter for antineoplastic immunotherapy (principal); C88.0 Waldenstrom macroglobulinemia; D50.8 Other iron deficiency anemias; Z79.899 Other long term (current) drug therapy; Z79.52 Long term (current) use of systemic steroids
CPT/HCPCS: 80053; 83615; 85025; 96360; 96375; 96413; 99215; J1100; J1200; J2405; J2919; J7040; J7050; Q5115

== ENCOUNTER 2024-07-02 14:00 | Oncology outpatient (recurring) (ONCR) | payer MEDICARE, MEDICAID, SELFPAY ==
[2024-06-11 08:36] LABS: Alanine Aminotransferase 21 U/L (0-33); Albumin Level 3.1 g/dL (3.5-5.2); Alkaline Phosphatase 135 U/L (35-105); Anion Gap 11.2 (5-19); Aspartate Amino Transferase 42 U/L (0-32); Blood Urea Nitrogen 11 mg/dL (8-23); Calcium 9.1 mg/dL (8.5-10.5); Carbon Dioxide 27 mmol/L (22-29); Chloride 93 mmol/L (98-107); Globulin 5.5 g/dL (1.3-4.6); Glomerular Filtration Rate 84.8 mL/min (90-130); Glucose 95 mg/dL (65-115); Lactate Dehydrogenase 176 U/L (135-214); Osmolality Calculated 263 mOsm/kg (285-295); Potassium 4.2 mmol/L (3.5-5.1); Sodium 127 mmol/L (136-145); Total Bilirubin 0.5 mg/dL (0.15-1.2); Total Protein 8.6 g/dL (6.6-8.7)
[2024-06-11 08:56] LABS: Basophils % 0.3 %; Eosinophils # 0.1 10^3/uL (0.0-0.8); Eosinophils % 0.8 %; Hematocrit 27.2 % (36-47); Lymphocytes # 3.7 10^3/uL (0.8-4.8); Lymphocytes % 56.5 %; Mean Corpuscular HGB Conc 32.4 g/dL (30-55); Mean Corpuscular Hemoglobin 30.9 pg (27-33); Mean Corpuscular Volume 95.4 fl (85-98); Mean Platelet Volume 9.5 fL (7.4-10.4); Monocytes # 1.5 10^3/uL (0.2-0.9); Monocytes % 23.7 %; Neutrophils # 1.09 10^3/uL (1.8-7.7); Neutrophils % 16.9 %; Nucleated Red Blood Cells % 0.3 %; Platelet Count 79 10^3/cmm (157-399); Red Blood Count 2.85 10^6/uL (3.85-5.65); White Blood Count 6.49 10^3/uL (3.29-11.43)
[2024-06-11 08:58] LABS: Slide Review Slide Review Perform
[2024-06-11] MEDS: sodium chloride 0.9% 250 ML 75 ML IV (10:07)
[2024-06-11] MEDS: acetaminophen 325 mg Tablet 650 MG PO (10:07)
[2024-06-11] MEDS: methylPREDNISolone sod succ 125 mg/2 mL INJ IVP (10:08)
[2024-06-11] MEDS: ondansetron 2 mg/ML SDV 2 mL 8 MG IVP (10:12)
[2024-06-11] MEDS: diphenhydrAMINE 50 mg/mL SDV 1mL 25 MG IVP ×2 (10:18→11:53)
[2024-06-11 11:46] VITALS: BP 105/66; PULSE 91; RESP 18; TEMP 36.4; O2SAT 91
[2024-06-11 11:50] VITALS: BP 118/70; PULSE 87; RESP 18; O2SAT 83
[2024-06-11] MEDS: ipratropium-albuterol 3 mL Neb INHALATION (11:50)
[2024-06-11 11:57] VITALS: BP 130/78; PULSE 82; RESP 18; O2SAT 100
[2024-06-11 12:16] VITALS: BP 120/69; PULSE 91; RESP 17; O2SAT 91
[2024-06-11 13:04] VITALS: BP 122/78; PULSE 92; RESP 16; TEMP 36.4; O2SAT 91
[2024-06-11 13:20] VITALS: BP 120/71; PULSE 93; TEMP 36.9; O2SAT 92
[2024-06-18 07:40] LABS: Basophils % 0.3 %; Eosinophils % 0.3 %; Hematocrit 27.7 % (36-47); Lymphocytes # 7.1 10^3/uL (0.8-4.8); Lymphocytes % 61.3 %; Mean Corpuscular HGB Conc 32.1 g/dL (30-55); Mean Corpuscular Hemoglobin 30.4 pg (27-33); Mean Corpuscular Volume 94.5 fl (85-98); Mean Platelet Volume 9.4 fL (7.4-10.4); Monocytes # 1.9 10^3/uL (0.2-0.9); Monocytes % 16.6 %; Neutrophils # 2.28 10^3/uL (1.8-7.7); Neutrophils % 19.8 %; Nucleated Red Blood Cells % 0 %; Platelet Count 88 10^3/cmm (157-399); Red Blood Count 2.93 10^6/uL (3.85-5.65); Red Cell Distribution Width 15.1 % (12.1-15.1); White Blood Count 11.54 10^3/uL (3.29-11.43)
[2024-06-18 07:50] LABS: Alanine Aminotransferase 24 U/L (0-33); Albumin Level 3.2 g/dL (3.5-5.2); Alkaline Phosphatase 162 U/L (35-105); Anion Gap 14.9 (5-19); Aspartate Amino Transferase 50 U/L (0-32); Blood Urea Nitrogen 10 mg/dL (8-23); Calcium 8.9 mg/dL (8.5-10.5); Carbon Dioxide 24 mmol/L (22-29); Chloride 92 mmol/L (98-107); Creatinine Clr Calc Pharmacy 71.0055; Glomerular Filtration Rate 101.3 mL/min (90-130); Glucose 100 mg/dL (65-115); Osmolality Calculated 263 mOsm/kg (285-295); Potassium 3.9 mmol/L (3.5-5.1); Sodium 127 mmol/L (136-145); Total Bilirubin 0.5 mg/dL (0.15-1.2); Total Protein 8.2 g/dL (6.6-8.7)
[2024-06-18 08:01] LABS: Slide Review Slide Review Perform
[2024-06-18 12:21] LABS: Thyroid Stimulating Hormone 3.26 uIU/mL (0.27-4.20)
== END 2024-07-04 23:59 | disposition home or self-care (01) ==
PROVIDERS: Nurse Practitioner Family; PCP Physician Assistant; Visit Provider Internal Medicine Hematology & Oncology
DX: Z53.9 Procedure and treatment not carried out, unspecified reason (principal)
CPT/HCPCS: 80053; 83615; 84443; 85025; 96361; 96375; 96376; 96413; 99214; J1200; J2405; J2919; J7040; J7050; Q5115

== ENCOUNTER 2024-07-31 09:54 | Oncology outpatient (recurring) (ONCR) | payer MEDICARE, MEDICAID, SELFPAY ==
[2024-07-17 08:15] LABS: Mean Corpuscular HGB Conc 31.5 g/dL (30-55); Mean Corpuscular Volume 95.4 fl (85-98); Mean Platelet Volume 9.1 fL (7.4-10.4); Platelet Count 94 10^3/cmm (157-399); Red Blood Count 2.83 10^6/uL (3.85-5.65); White Blood Count 11.01 10^3/uL (3.29-11.43)
[2024-07-17 08:43] LABS: Alanine Aminotransferase 18 U/L (0-33); Alkaline Phosphatase 170 U/L (35-105); Anion Gap 12.3 (5-19); Aspartate Amino Transferase 47 U/L (0-32); Blood Urea Nitrogen 9 mg/dL (8-23); Calcium 8.8 mg/dL (8.5-10.5); Carbon Dioxide 27 mmol/L (22-29); Chloride 93 mmol/L (98-107); Creatinine Clr Calc Pharmacy 70.3102; Globulin 5.7 g/dL (1.3-4.6); Glomerular Filtration Rate 101.3 mL/min (90-130); Glucose 89 mg/dL (65-115); Lactate Dehydrogenase 188 U/L (135-214); Osmolality Calculated 264 mOsm/kg (285-295); Potassium 4.3 mmol/L (3.5-5.1); Sodium 128 mmol/L (136-145); Total Bilirubin 0.4 mg/dL (0.15-1.2); Total Protein 8.7 g/dL (6.6-8.7)
[2024-07-17 08:53] LABS: Band Neutrophils Absolute 0.2 10^3/cmm (0.0-1.2); Basophils Absolute 0.1 10^3/cmm (0.0-0.2); Eosinophils 0 %; Lymphocytes 53 %; Lymphocytes Absolute 6.9 10^3/cmm (1.2-3.4); Monocytes Absolute 1.4 10^3/cmm (0.1-0.6); Segmented Neutrophils 18 %; Slide Review Slide Review Perform; Total Cells Counted 100 (0-100)
[2024-07-17 08:54] LABS: Absolute Neutrophil 2.2 10^3/cmm (1.4-6.5); Anisocytosis 1+; Giant Platelets 1+; Macrocytosis 1+; Platelet Estimate Decreased (Normal); Polychromasia Trace; Smudge Cells Trace
[2024-07-24 08:24] LABS: Hematocrit 26.4 % (36-47); Mean Corpuscular HGB Conc 31.4 g/dL (30-55); Mean Corpuscular Volume 95.3 fl (85-98); Mean Platelet Volume 8.9 fL (7.4-10.4); Platelet Count 63 10^3/cmm (157-399); Red Blood Count 2.77 10^6/uL (3.85-5.65); White Blood Count 13.36 10^3/uL (3.29-11.43)
[2024-07-24 08:44] LABS: Alanine Aminotransferase 22 U/L (0-33); Alkaline Phosphatase 175 U/L (35-105); Anion Gap 15.5 (5-19); Aspartate Amino Transferase 58 U/L (0-32); Blood Urea Nitrogen 12 mg/dL (8-23); Calcium 8.8 mg/dL (8.5-10.5); Carbon Dioxide 25 mmol/L (22-29); Chloride 94 mmol/L (98-107); Creatinine Clr Calc Pharmacy 60.8618; Globulin 6.1 g/dL (1.3-4.6); Glomerular Filtration Rate 84.8 mL/min (90-130); Glucose 96 mg/dL (65-115); Osmolality Calculated 270 mOsm/kg (285-295); Potassium 4.5 mmol/L (3.5-5.1); Sodium 130 mmol/L (136-145); Total Bilirubin 0.5 mg/dL (0.15-1.2); Total Protein 9.1 g/dL (6.6-8.7)
[2024-07-24 08:58] LABS: Hepatitis B Surface Antigen Non-Reactive (Nonreactive)
[2024-07-24 09:16] LABS: Slide Review Slide Review Perform
[2024-07-24 09:17] LABS: Absolute Eosinophils 0.3 10^3/cmm (0.0-0.7); Absolute Neutrophil 2.4 10^3/cmm (1.4-6.5); Band Neutrophils Absolute 0.4 10^3/cmm (0.0-1.2); Eosinophils 2 %; Lymphocytes 45 %; Lymphocytes Absolute 10.3 10^3/cmm (1.2-3.4); Monocytes Absolute 0.1 10^3/cmm (0.1-0.6); Platelet Estimate Decreased (Normal); Segmented Neutrophils 15 %; Total Cells Counted 10 (0-100)
[2024-07-24 09:40] LABS: Hepatitis B Core AB, Total Non-Reactive (Nonreactive); Hepatitis B Surface AB < 3.5 (11.5-1000)
[2024-07-30 12:14] LABS: Factor 5 Leiden Mutation POSITIVE
[2024-07-31 10:06] LABS: Basophils # 0.1 10^3/uL (0.0-0.1); Basophils % 0.4 %; Eosinophils # 0.1 10^3/uL (0.0-0.8); Eosinophils % 0.7 %; Hematocrit 27.3 % (36-47); Lymphocytes # 10.5 10^3/uL (0.8-4.8); Lymphocytes % 76.5 %; Mean Corpuscular HGB Conc 31.1 g/dL (30-55); Mean Corpuscular Hemoglobin 29.8 pg (27-33); Mean Corpuscular Volume 95.8 fl (85-98); Mean Platelet Volume 9.9 fL (7.4-10.4); Monocytes # 1.4 10^3/uL (0.2-0.9); Monocytes % 10.1 %; Neutrophils # 1.64 10^3/uL (1.8-7.7); Nucleated Red Blood Cells % 0.1 %; Platelet Count 61 10^3/cmm (157-399); Red Blood Count 2.85 10^6/uL (3.85-5.65); White Blood Count 13.68 10^3/uL (3.29-11.43)
[2024-07-31 10:27] LABS: Alanine Aminotransferase 26 U/L (0-33); Albumin Level 3.1 g/dL (3.5-5.2); Alkaline Phosphatase 149 U/L (35-105); Anion Gap 13.9 (5-19); Aspartate Amino Transferase 56 U/L (0-32); Blood Urea Nitrogen 14 mg/dL (8-23); Calcium 9.6 mg/dL (8.5-10.5); Carbon Dioxide 25 mmol/L (22-29); Chloride 93 mmol/L (98-107); Creatinine Clr Calc Pharmacy 60.8618; Globulin 5.7 g/dL (1.3-4.6); Glomerular Filtration Rate 84.8 mL/min (90-130); Glucose 112 mg/dL (65-115); Osmolality Calculated 267 mOsm/kg (285-295); Potassium 3.9 mmol/L (3.5-5.1); Sodium 128 mmol/L (136-145); Total Bilirubin 0.5 mg/dL (0.15-1.2); Total Protein 8.8 g/dL (6.6-8.7)
== END 2024-08-03 23:59 | disposition home or self-care (01) ==
PROVIDERS: Nurse Practitioner Family; PCP Physician Assistant; Visit Provider Internal Medicine
DX: C88.00 Waldenstrom macroglobulinemia not having achieved remission (principal); Z53.9 Procedure and treatment not carried out, unspecified reason; D50.8 Other iron deficiency anemias; F10.10 Alcohol abuse, uncomplicated
CPT/HCPCS: 36591; 80053; 81241; 83615; 85007; 85025; 86705; 86706; 87340; 99213; 99214; 99215

== ENCOUNTER 2024-08-29 09:06 | Oncology outpatient (recurring) (ONCR) | payer MEDICARE, MEDICAID, SELFPAY ==
[2024-08-29 10:28] LABS: Basophils % 0.7 %; Eosinophils # 0.1 10^3/uL (0.0-0.8); Eosinophils % 1.9 %; Lymphocytes # 3.4 10^3/uL (0.8-4.8); Lymphocytes % 58.9 %; Mean Corpuscular HGB Conc 31.8 g/dL (30-55); Mean Corpuscular Hemoglobin 30.9 pg (27-33); Mean Corpuscular Volume 97.2 fl (85-98); Mean Platelet Volume 9.3 fL (7.4-10.4); Monocytes % 17.1 %; Neutrophils % 21.1 %; Nucleated Red Blood Cells % 0 %; Platelet Count 109 10^3/cmm (157-399); Red Blood Count 2.88 10^6/uL (3.85-5.65); Red Cell Distribution Width 15.9 % (12.1-15.1); White Blood Count 5.72 10^3/uL (3.29-11.43)
[2024-08-29 10:43] LABS: Alanine Aminotransferase 33 U/L (0-33); Albumin Level 3.5 g/dL (3.5-5.2); Alkaline Phosphatase 134 U/L (35-105); Anion Gap 13.4 (5-19); Aspartate Amino Transferase 46 U/L (0-32); Blood Urea Nitrogen 15 mg/dL (8-23); Calcium 9.3 mg/dL (8.5-10.5); Carbon Dioxide 26 mmol/L (22-29); Chloride 94 mmol/L (98-107); Creatinine Clr Calc Pharmacy 70.0951; Globulin 5.1 g/dL (1.3-4.6); Glucose 89 mg/dL (65-115); Immunoglobulin IGG 646 mg/dL (700-1600); Lactate Dehydrogenase 121 U/L (135-214); Osmolality Calculated 268 mOsm/kg (285-295); Potassium 4.4 mmol/L (3.5-5.1); Sodium 129 mmol/L (136-145); Total Bilirubin 0.6 mg/dL (0.15-1.2); Total Protein 8.6 g/dL (6.6-8.7); Uric Acid 3.9 mg/dL (2.4-5.7)
[2024-08-29 10:58] LABS: Immunoglobulin IGA 42 mg/dL (70-400); Immunoglobulin IGM 5122 mg/dL (40-230)
[2024-08-29 11:48] LABS: Ferritin 319 ng/mL (15-150); Iron 85 ug/dL (37-145); Percent Saturation 37.6 % (20-50); Total Iron Binding Capacity 226 mcg/dl; Unsaturated Iron Binding 141 ug/dL (112-347)
[2024-08-29 11:59] LABS: Vitamin B12 329 pg/mL (232-1245)
[2024-08-29 13:10] LABS: Folate Level > 20.0 ng/mL (4.8-37.3)
[2024-08-30 06:30] LABS: PROTEIN, TOTAL 8.7 g/dL (6.1-8.1)
[2024-08-30 19:20] LABS: ABNORMAL PROTEIN BAND 1 3.4 g/dL (NONE DETECTED); ALBUMIN 3.4 g/dL (3.8-4.8); ALPHA 1 GLOBULIN 0.3 g/dL (0.2-0.3); ALPHA 2 GLOBULIN 0.6 g/dL (0.5-0.9); BETA 1 GLOBULIN 0.4 g/dL (0.4-0.6); BETA 2 GLOBULIN 0.4 g/dL (0.2-0.5); GAMMA GLOBULIN 3.7 g/dL (0.8-1.7)
== END 2024-09-03 23:59 | disposition home or self-care (01) ==
PROVIDERS: PCP Physician Assistant; Visit Provider Internal Medicine
DX: C88.00 Waldenstrom macroglobulinemia not having achieved remission (principal); F10.10 Alcohol abuse, uncomplicated; D50.8 Other iron deficiency anemias; Z98.890 Other specified postprocedural states; Z79.899 Other long term (current) drug therapy
CPT/HCPCS: 36591; 80053; 82607; 82728; 82746; 82784; 83540; 83550; 83615; 84155; 84165; 84550; 85025; 99213

== ENCOUNTER 2024-09-26 09:30 | Oncology outpatient (recurring) (ONCR) | payer MEDICARE, MEDICAID, SELFPAY ==
[2024-09-16 14:19] LABS: Basophils # 0.1 10^3/uL (0.0-0.1); Eosinophils # 0.1 10^3/uL (0.0-0.8); Eosinophils % 1.5 %; Hematocrit 28.5 % (36-47); Lymphocytes # 2.8 10^3/uL (0.8-4.8); Lymphocytes % 53.2 %; Mean Corpuscular HGB Conc 31.6 g/dL (30-55); Mean Corpuscular Hemoglobin 31.3 pg (27-33); Mean Platelet Volume 9.3 fL (7.4-10.4); Monocytes % 18.3 %; Neutrophils # 1.34 10^3/uL (1.8-7.7); Neutrophils % 25.8 %; Nucleated Red Blood Cells % 0 %; Platelet Count 117 10^3/cmm (157-399); Red Blood Count 2.88 10^6/uL (3.85-5.65); Red Cell Distribution Width 15.5 % (12.1-15.1); White Blood Count 5.19 10^3/uL (3.29-11.43)
[2024-09-16 14:36] LABS: Alanine Aminotransferase 39 U/L (0-33); Albumin Level 3.6 g/dL (3.5-5.2); Alkaline Phosphatase 113 U/L (35-105); Anion Gap 12.5 (5-19); Aspartate Amino Transferase 48 U/L (0-32); Blood Urea Nitrogen 11 mg/dL (8-23); Calcium 9.5 mg/dL (8.5-10.5); Carbon Dioxide 26 mmol/L (22-29); Chloride 102 mmol/L (98-107); Globulin 4.9 g/dL (1.3-4.6); Glucose 99 mg/dL (65-115); Osmolality Calculated 281 mOsm/kg (285-295); Potassium 4.5 mmol/L (3.5-5.1); Sodium 136 mmol/L (136-145); Total Bilirubin 0.4 mg/dL (0.15-1.2); Total Protein 8.5 g/dL (6.6-8.7)
[2024-09-26 09:54] LABS: Basophils % 0.6 %; Eosinophils # 0.1 10^3/uL (0.0-0.8); Eosinophils % 1.4 %; Hematocrit 29.7 % (36-47); Lymphocytes % 48.9 %; Mean Corpuscular HGB Conc 32.3 g/dL (30-55); Mean Corpuscular Hemoglobin 31.1 pg (27-33); Mean Corpuscular Volume 96.1 fl (85-98); Mean Platelet Volume 8.9 fL (7.4-10.4); Monocytes # 1.1 10^3/uL (0.2-0.9); Monocytes % 17.7 %; Neutrophils # 1.94 10^3/uL (1.8-7.7); Neutrophils % 31.2 %; Nucleated Red Blood Cells % 0 %; Platelet Count 123 10^3/cmm (157-399); Red Blood Count 3.09 10^6/uL (3.85-5.65); Red Cell Distribution Width 14.8 % (12.1-15.1); White Blood Count 6.22 10^3/uL (3.29-11.43)
[2024-09-26 10:11] LABS: Alanine Aminotransferase 41 U/L (0-33); Albumin Level 3.6 g/dL (3.5-5.2); Alkaline Phosphatase 114 U/L (35-105); Anion Gap 15.6 (5-19); Aspartate Amino Transferase 57 U/L (0-32); Blood Urea Nitrogen 17 mg/dL (8-23); Calcium 9.3 mg/dL (8.5-10.5); Carbon Dioxide 26 mmol/L (22-29); Chloride 89 mmol/L (98-107); Globulin 4.8 g/dL (1.3-4.6); Glomerular Filtration Rate 72.4 mL/min (90-130); Glucose 97 mg/dL (65-115); Lactate Dehydrogenase 129 U/L (135-214); Magnesium 1.5 mg/dL (1.7-2.3); Osmolality Calculated 263 mOsm/kg (285-295); Potassium 4.6 mmol/L (3.5-5.1); Sodium 126 mmol/L (136-145); Total Bilirubin 0.4 mg/dL (0.15-1.2); Total Protein 8.4 g/dL (6.6-8.7); Uric Acid 3.3 mg/dL (2.4-5.7)
== END 2024-10-04 23:59 | disposition home or self-care (01) ==
PROVIDERS: Nurse Practitioner Family; PCP Physician Assistant; Visit Provider Internal Medicine
DX: C88.00 Waldenstrom macroglobulinemia not having achieved remission; Z53.9 Procedure and treatment not carried out, unspecified reason; F10.10 Alcohol abuse, uncomplicated; Z95.828 Presence of other vascular implants and grafts; D64.9 Anemia, unspecified; G89.29 Other chronic pain; R21 Rash and other nonspecific skin eruption
CPT/HCPCS: 36591; 80053; 83615; 83735; 84100; 84550; 85025; 99213

== ENCOUNTER 2024-11-13 13:18 | Outpatient (CLI) | payer MEDICARE, MEDICAID, SELFPAY ==
--- NOTE | 2024-11-13 13:24 | MR_ITS ---
WS: [id number] MRI BRAIN WITH AND WITHOUT CONTRAST HISTORY: Chronic Headache disorder (G44.89) COMPARISON: 02/02/2021 TECHNIQUE: Multiplanar imaging performed through the brain with MultiHance 10 ml's IV. No acute infarcts are seen. Joshi-white matter differentiation is well preserved. There are a few scattered T2 and FLAIR signal hyperintensities very similar to the prior study. No new infarct or significant progression of small vessel disease. No susceptibility artifacts or prior lacunar infarcts. Ventricles and extra-axial spaces are normal. Clivus and pituitary gland are normal. Mild cerebellar atrophy. Artifact through the upper cervical spine secondary to fusion hardware. Postcontrast images are negative for masses or vascular malformations. Dural venous sinuses are normal. Paranasal sinuses: Well aerated with no significant disease. Mastoid air cells: Normal. Calvarium and scalp: Normal. MR/MR head wo/w con [id number] IMPRESSION: 1. No acute infarct or hemorrhage. 2. No metastatic disease to the brain. 3. Mild small vessel ischemic changes without progression since 2014.
[2024-11-13] MEDS: gadobenate dimeglumine 20 mL vial IV (14:11)
== END 2024-11-13 13:19 | disposition home or self-care (01) ==
PROVIDERS: PCP Physician Assistant; Visit Provider Physician Assistant
DX: G44.89 Other headache syndrome (principal); I67.82 Cerebral ischemia; G31.89 Other specified degenerative diseases of nervous system; Z98.1 Arthrodesis status
CPT/HCPCS: 70553

== ENCOUNTER → 2024-11-18 10:12 | Outpatient (BNVA) | payer MEDICARE, MEDICAID, SELFPAY | PROVIDERS: PCP Physician Assistant; Visit Provider Orthopaedic Surgery | DX: M25.512 Pain in left shoulder (principal) | CPT/HCPCS: 73030; 99204 ==

== ENCOUNTER 2024-11-27 09:09 | Oncology outpatient (recurring) (ONCR) | payer MEDICARE, MEDICAID, SELFPAY ==
[2024-11-07 09:35] LABS: Basophils % 0.7 %; Eosinophils # 0.2 10^3/uL (0.0-0.8); Eosinophils % 3.1 %; Hematocrit 31.1 % (36-47); Lymphocytes % 51.6 %; Mean Corpuscular HGB Conc 31.5 g/dL (30-55); Mean Corpuscular Hemoglobin 31.4 pg (27-33); Mean Corpuscular Volume 99.7 fl (85-98); Mean Platelet Volume 10.2 fL (7.4-10.4); Monocytes # 1.1 10^3/uL (0.2-0.9); Monocytes % 18.6 %; Neutrophils # 1.48 10^3/uL (1.8-7.7); Neutrophils % 25.8 %; Nucleated Red Blood Cells % 0 %; Platelet Count 128 10^3/cmm (157-399); Red Blood Count 3.12 10^6/uL (3.85-5.65); Red Cell Distribution Width 13.4 % (12.1-15.1); White Blood Count 5.74 10^3/uL (3.29-11.43)
[2024-11-07 09:56] LABS: Alanine Aminotransferase 24 U/L (0-33); Albumin Level 3.6 g/dL (3.5-5.2); Alkaline Phosphatase 90 U/L (35-105); Anion Gap 13.5 (5-19); Aspartate Amino Transferase 35 U/L (0-32); Blood Urea Nitrogen 17 mg/dL (8-23); Calcium 9.7 mg/dL (8.5-10.5); Carbon Dioxide 26 mmol/L (22-29); Chloride 101 mmol/L (98-107); Glomerular Filtration Rate 84.5 mL/min (90-130); Glucose 92 mg/dL (65-115); Immunoglobulin IGG 741 mg/dL (700-1600); Lactate Dehydrogenase 119 U/L (135-214); Osmolality Calculated 283 mOsm/kg (285-295); Potassium 4.5 mmol/L (3.5-5.1); Sodium 136 mmol/L (136-145); Total Bilirubin 0.5 mg/dL (0.15-1.2); Total Protein 8.6 g/dL (6.6-8.7); Uric Acid 3.7 mg/dL (2.4-5.7)
[2024-11-07 09:58] LABS: Immunoglobulin IGA < 50 mg/dL (70-400)
[2024-11-07 10:08] LABS: Immunoglobulin IGM 3625 mg/dL (40-230)
[2024-11-08 06:45] LABS: PROTEIN, TOTAL 8.1 g/dL (6.1-8.1)
[2024-11-08 08:34] LABS: Beta-2-Microglobulin 4.91 mg/L (< OR = 2.51)
[2024-11-09 10:40] LABS: ABNORMAL PROTEIN BAND 1 2.3 g/dL (NONE DETECTED); ALBUMIN 3.7 g/dL (3.8-4.8); ALPHA 1 GLOBULIN 0.3 g/dL (0.2-0.3); ALPHA 2 GLOBULIN 0.6 g/dL (0.5-0.9); BETA 1 GLOBULIN 0.4 g/dL (0.4-0.6); BETA 2 GLOBULIN 0.3 g/dL (0.2-0.5); GAMMA GLOBULIN 2.8 g/dL (0.8-1.7)
[2024-11-11 14:39] LABS: KAPPA LIGHT CHAIN, FREE, SERUM 19.3 mg/L (3.3-19.4); KAPPA/LAMBDA LIGHT CHAINS FREE 0.14 (0.26-1.65); LAMBDA LIGHT CHAIN, FREE, SERU 142.4 mg/L (5.7-26.3)
--- NOTE | 2024-11-25 09:30 | MR_ITS ---
WS: [id number] MRI LEFT SHOULDER HISTORY: shoulder pain COMPARISON: Radiograph 11/18/2024 TECHNIQUE: Multiplanar sequences of the shoulder joint are submitted. Mild AC joint arthritis. Small amount of fluid through the AC joint with mild hypertrophic bone formation. Mild downsloping of the acromion. Mild subacromial impingement. Normal position of the biceps tendon. No os acromion. Mild diffuse atrophy of the rotator cuff muscles. No tendon tears. Mild distal supraspinatus tendinopathy. Normal appearance of the biceps tendon and rotator cuff interval. There is very slight increased T2 signal near the axillary pouch. Coracohumeral ligament is normal. Abnormal configuration of the posterior labrum. Discontinuity of the glenoid and clumping of the posterior labrum. Most likely these findings are related to a posterior labral tear. Associated glenoid rim fracture is also likely. Loss of the normal cartilage over the labrum but greatest posteriorly. Seen best on the coronal imaging is a intra-articular body closely associated with the distal biceps tendon. MR/MR shoulder LT wo con* [id number] IMPRESSION: 1. Mild AC joint arthropathy. 2. No rotator cuff tear. 3. Abnormal configuration of the posterior labrum. Findings are consistent wit h a posterior labral tear with glenoid rim tiny avulsion fracture. Also noted l oss of normal cartilage involving the glenoid. 4. Possible intra-articular body seen only on the coronal imaging in the super ior glenohumeral joint adjacent to the biceps tendon.
[2024-11-27 09:21] LABS: Basophils % 0.8 %; Eosinophils # 0.1 10^3/uL (0.0-0.8); Eosinophils % 2.9 %; Lymphocytes # 2.6 10^3/uL (0.8-4.8); Lymphocytes % 55.3 %; Mean Corpuscular HGB Conc 30.9 g/dL (30-55); Mean Corpuscular Hemoglobin 30.8 pg (27-33); Mean Corpuscular Volume 99.7 fl (85-98); Mean Platelet Volume 9.8 fL (7.4-10.4); Monocytes # 0.9 10^3/uL (0.2-0.9); Monocytes % 19.1 %; Neutrophils # 1.03 10^3/uL (1.8-7.7); Neutrophils % 21.7 %; Nucleated Red Blood Cells % 0 %; Platelet Count 113 10^3/cmm (157-399); Red Blood Count 3.21 10^6/uL (3.85-5.65); Red Cell Distribution Width 13.1 % (12.1-15.1); White Blood Count 4.76 10^3/uL (3.29-11.43)
[2024-11-27 09:41] LABS: Alanine Aminotransferase 54 U/L (0-33); Albumin Level 3.7 g/dL (3.5-5.2); Alkaline Phosphatase 84 U/L (35-105); Anion Gap 12.3 (5-19); Aspartate Amino Transferase 52 U/L (0-32); Blood Urea Nitrogen 14 mg/dL (8-23); Calcium 9.8 mg/dL (8.5-10.5); Carbon Dioxide 27 mmol/L (22-29); Chloride 100 mmol/L (98-107); Globulin 4.3 g/dL (1.3-4.6); Glomerular Filtration Rate 72.4 mL/min (90-130); Glucose 87 mg/dL (65-115); Lactate Dehydrogenase 116 U/L (135-214); Osmolality Calculated 280 mOsm/kg (285-295); Potassium 4.3 mmol/L (3.5-5.1); Sodium 135 mmol/L (136-145); Total Bilirubin 0.6 mg/dL (0.15-1.2)
== END 2024-12-02 23:59 | disposition home or self-care (01) ==
PROVIDERS: Nurse Practitioner Family; PCP Physician Assistant; Visit Provider Internal Medicine
DX: Z53.9 Procedure and treatment not carried out, unspecified reason; C88.00 Waldenstrom macroglobulinemia not having achieved remission; D50.8 Other iron deficiency anemias; G62.9 Polyneuropathy, unspecified; F10.10 Alcohol abuse, uncomplicated; Z87.891 Personal history of nicotine dependence; Z79.899 Other long term (current) drug therapy; Z95.828 Presence of other vascular implants and grafts
CPT/HCPCS: 36415; 36591; 73221; 80053; 82232; 82784; 83010; 83615; 83883; 84155; 84165; 84550; 85025; 86334; 99214

== ENCOUNTER 2024-12-25 08:31 | Oncology outpatient (recurring) (ONCR) | payer OTHER, MEDICAID, SELFPAY ==
[2024-12-25 08:52] LABS: Basophils % 0.8 %; Eosinophils # 0.2 10^3/uL (0.0-0.8); Eosinophils % 3.4 %; Hematocrit 31.3 % (36-47); Lymphocytes # 2.6 10^3/uL (0.8-4.8); Lymphocytes % 49.7 %; Mean Corpuscular HGB Conc 30.7 g/dL (30-55); Mean Corpuscular Hemoglobin 30.5 pg (27-33); Mean Corpuscular Volume 99.4 fl (85-98); Mean Platelet Volume 10.7 fL (7.4-10.4); Monocytes # 0.9 10^3/uL (0.2-0.9); Monocytes % 17.3 %; Neutrophils # 1.52 10^3/uL (1.8-7.7); Neutrophils % 28.6 %; Nucleated Red Blood Cells % 0 %; Platelet Count 115 10^3/cmm (157-399); Red Blood Count 3.15 10^6/uL (3.85-5.65); Red Cell Distribution Width 13.2 % (12.1-15.1); White Blood Count 5.31 10^3/uL (3.29-11.43)
[2024-12-25 09:16] LABS: Alanine Aminotransferase 61 U/L (0-33); Albumin Level 3.6 g/dL (3.5-5.2); Alkaline Phosphatase 98 U/L (35-105); Anion Gap 14.1 (5-19); Aspartate Amino Transferase 49 U/L (0-32); Blood Urea Nitrogen 20 mg/dL (8-23); Calcium 9.2 mg/dL (8.5-10.5); Carbon Dioxide 25 mmol/L (22-29); Chloride 103 mmol/L (98-107); Glomerular Filtration Rate 72.4 mL/min (90-130); Glucose 91 mg/dL (65-115); Lactate Dehydrogenase 117 U/L (135-214); Osmolality Calculated 288 mOsm/kg (285-295); Potassium 4.1 mmol/L (3.5-5.1); Sodium 138 mmol/L (136-145); Total Bilirubin 0.5 mg/dL (0.15-1.2); Total Protein 7.6 g/dL (6.6-8.7)
== END 2025-01-01 23:59 | disposition home or self-care (01) ==
PROVIDERS: Nurse Practitioner Family; PCP Physician Assistant; Visit Provider Internal Medicine
DX: C88.00 Waldenstrom macroglobulinemia not having achieved remission (principal); R03.0 Elevated blood-pressure reading, without diagnosis of hypertension; F10.10 Alcohol abuse, uncomplicated; G62.9 Polyneuropathy, unspecified; Z95.828 Presence of other vascular implants and grafts; Z87.891 Personal history of nicotine dependence; Z79.899 Other long term (current) drug therapy
CPT/HCPCS: 36591; 80053; 83615; 85025; 99213

== ENCOUNTER 2025-03-19 14:15 | Oncology outpatient (recurring) (ONCR) | payer OTHER, MEDICAID, SELFPAY ==
--- NOTE | 2025-03-17 10:07 | MM_ITS ---
WS: [id number] BILATERAL SCREENING DIGITAL TOMOSYNTHESIS MAMMOGRAM WITH CAD HISTORY: SCREENING COMPARISON: 03/13/2024, 10/28/2022 and 10/20/2021 Bilateral CC and MLO views with tomosynthesis and synthetic mammography submitted. Computer aided detection analyzed. Breast composition: The breasts are heterogeneously dense, which may obscure small masses. No suspicious masses, microcalcifications or architectural distortion. MM/MM scr BI tomosynthesis [id number] IMPRESSION: BI-RADS: 1 - Negative FOLLOW UP: 1 Year Follow-up
[2025-03-19 14:27] LABS: Hematocrit 31.9 % (36-47); Hemoglobin 10.50 g/dL (11.27-16.99); Mean Corpuscular HGB Conc 32.9 g/dL (30-55); Mean Corpuscular Hemoglobin 31.1 pg (27-33); Mean Corpuscular Volume 94.4 fl (85-98); Nucleated Red Blood Cells % 0 %; Platelet Count 130 10^3/cmm (157-399); Red Blood Count 3.38 10^6/uL (3.85-5.65); White Blood Count 4.59 10^3/uL (3.29-11.43)
[2025-03-19 14:44] LABS: Alanine Aminotransferase 16 U/L (0-33); Albumin Level 3.9 g/dL (3.5-5.2); Alkaline Phosphatase 77 U/L (35-105); Anion Gap 16.4 (5-19); Aspartate Amino Transferase 31 U/L (0-32); Blood Urea Nitrogen 12 mg/dL (8-23); Calcium 9.0 mg/dL (8.5-10.5); Carbon Dioxide 26 mmol/L (22-29); Chloride 93 mmol/L (98-107); Creatinine Clr Calc Pharmacy 54.6337; Globulin 3.7 g/dL (1.3-4.6); Glucose 84 mg/dL (65-115); Osmolality Calculated 271 mOsm/kg (285-295); Potassium 4.4 mmol/L (3.5-5.1); Sodium 131 mmol/L (136-145); Total Protein 7.6 g/dL (6.6-8.7); Uric Acid 2.7 mg/dL (2.4-5.7)
[2025-03-20 06:00] LABS: PROTEIN, TOTAL 7.4 g/dL (6.1-8.1)
[2025-03-20 14:39] LABS: KAPPA LIGHT CHAIN, FREE, SERUM 16.4 mg/L (3.3-19.4); KAPPA/LAMBDA LIGHT CHAINS FREE 0.23 (0.26-1.65); LAMBDA LIGHT CHAIN, FREE, SERU 72.5 mg/L (5.7-26.3)
[2025-03-20 20:40] LABS: ALPHA 1 GLOBULIN 0.3 g/dL (0.2-0.3); ALPHA 2 GLOBULIN 0.5 g/dL (0.5-0.9); BETA 1 GLOBULIN 0.4 g/dL (0.4-0.6); BETA 2 GLOBULIN 0.3 g/dL (0.2-0.5)
== END 2025-04-03 23:59 | disposition home or self-care (01) ==
PROVIDERS: PCP Physician Assistant; Visit Provider Internal Medicine
DX: C88.00 Waldenstrom macroglobulinemia not having achieved remission; F10.10 Alcohol abuse, uncomplicated; D64.9 Anemia, unspecified; G62.9 Polyneuropathy, unspecified; Z95.828 Presence of other vascular implants and grafts; Z87.891 Personal history of nicotine dependence; Z92.21 Personal history of antineoplastic chemotherapy; Z79.899 Other long term (current) drug therapy; Z53.9 Procedure and treatment not carried out, unspecified reason
CPT/HCPCS: 36591; 77063; 77067; 80053; 82784; 83615; 83883; 84155; 84165; 84550; 85025; 86334; 99213

== ENCOUNTER 2025-06-20 10:44 | Emergency (ER) | payer OTHER, MEDICAID, SELFPAY ==
[2025-06-20 11:01] VITALS: PULSE 95; RESP 18; TEMP 36.9; O2SAT 94
--- OUTSIDE RECORDS SUMMARY | 2025-06-20 11:05 | XMS_ITS | Data Portability ---
Author Organization [facility]za [facility] Address [address] [place] [address] Care Team Providers Care Health Evaluator Name Role Phone LUCY DEAN Primary Care Provider Unavailabl e Assessment No assessment recorded. Plan of Treatment Reminders Order Date Submit Date Provider Last Modified By Organization Details Last Modified Time Details Appointments OFFICE VISIT 20 2024 10:40A M LUCY DEAN PA-C Not available Not available Not available Lab None recorded. Referral None recorded. Procedures None recorded. Surgeries None recorded. Imaging MRI, brain, w/wo contrast [address] (Scheduling Orders), [address] [place], [address], 11/11/2024 12:28:11 Medication Orders hydroxyzi ne HCl 10 mg tablet [address] [facility], [address] [place], [address], 11/27/2024 11:11:41 doxycycli ne hyclate 100 mg capsule [address] [facility], [address] [place], [address], 11/01/2024 13:15:44 Lasix 20 mg tablet [address] [facility], [address] [place] [address], [address], 10/10/2024 13:15:10 potassium chloride ER 20 mEq tablet,ex tended release(p art/cryst ) 2023 024 [email or web address] [facility], [address] [place] [address], [address], 02/06/2025 11:30:08 Pro-Stat AWC 17 gram-100 kcal/30 mL oral liquid 2023 025 ORALIA [facility], [address] [place] [address], [address], 02/06/2025 11:11:32 Patient TargetsNo targets recorded. Patient InstructionsNo instructions recorded. Reason for Referral None Reported. Results Created Date Observation Date Name Description Value Unit Range Abnormal Flag Note LastModifiedBy Organization Detail LastModifiedTime 11/14/1911/13/2024 MRI, brain , w/wo contr ast No observ ation record ed. [email or web address] [place] [address] [place], [address], 11/14/2024 07:16:01 Result Notes None recorded. 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 5 07:39:18 Tear of medial meniscus of knee 716122993 Active REBECA TORRES null, [facility] 5 07:39:06 Osteoart hritis 928276792 Active REBECA SCOTTNER null, [facility] 5 07:38:19 Dysphagi a 97928466 Active REBECA SCTOTNER null, [facility] 5 07:33:32 Altered mental status 881002170 Completed 11/06/2024 Removal Reason: resolved REBECA TORRES null, [facility] 5 07:31:18 Hypokale karina 54733979 Active REBECA TORRES null, [facility] 5 07:37:06 Anxiety 89437729 Active REBECA TORRES null, [facility] 5 07:31:28 Chronic hyponatr emia 21494577 Active REBECA CHAVEZNER null, [facility] 5 07:32:38 Carpal tunnel syndrome 44085640 Completed 11/06/2024 Removal Reason: resolved REBECA TORRES null, [facility] 5 07:32:23 Colitis 43660157 Completed 11/06/2024 Removal Reason: resolved REBECA TORRES null, [facility] 5 07:32:51 Recurren t pneumoni a 855193289 Active REBECA SCOTTNER null, [facility] 5 07:38:31 Helicoba cter pylori-a ssociate d gastriti s 111364647 Completed 11/06/2024 Removal Reason: resolved REBECA TORRES null, [facility] 5 07:34:24 Gastroin testinal hemorrha ge 70356080 Completed 11/06/2024 Removal Reason: resolved REBECA TORRES null, [facility] 5 07:34:10 Cholecys titis 90548150 Completed 11/06/2024 Removal Reason: resolved REBECA TORRES null, [facility] 5 07:32:35 Hypersom roshni 27915035 Active REBECA TORRES null, [facility] 5 07:36:54 Iron deficien cy anemia 89602410 Active REBECA TORRES null, [facility] 5 07:37:31 Waldt vania galvez macroglo bulinemi a 086121623 Active 2019 REBECA TORRES [facility] 5 07:39:26 Muscle pain 65073908 Completed 202103/10/2022 MUSCLE PAIN - Status is Inactive ; Recorded 03/10/20 1:32PM by uLcy Dean PA-C, [place]; Promoted ; acuity set as *; Not Available [facility] 3 03:16:10 Finding of body mass index 780355007 Completed 202103/10/2022 BMI 21.0-21. 9, ADULT - Status is Inactive ; Recorded 03/10/20 1:32PM by Lucy Dean PA-C, [place]; Promoted ; acuity set as *; Not Available [facility] 3 03:16:10 Neuropat hy 029071672 Completed 202103/10/2022 PERIPHER AL NEUROPAT HY - Status is Resolved ; Resolved Date: 03/10/20; Recorded 03/10/20 1:32PM by Lucy Dean PA-C, [place] on/[place] dum; Promoted ; acuity set as *; REBECA TORRES null, [facility] 5 07:38:14 Abdomina l pain 87687631 Completed 202210/25/2022 ABDOMINA L PAIN - Status is Inactive ; Recorded 10/25/19 1:45PM by Lucy Dean PA-C, Annot[place] on/[place]en dum; Promoted ; acuity set as *; REBECA TORRES null, [facility] 5 07:30:19 Restless legs syndrome 35805970 Active 2022 RESTLESS LEG REBECA TORRES null, [facility] 5 07:38:34 Monoclon al [facility]at hy [facility] 729237502 Active 2022 NEUROPAT HY ASSOCIAT ED WITH MGUS REBECA TORRES null, [facility] 5 07:38:12 Hyperlip idemia 60824925 Active 2022 HYPERLIP IDEMIA REBECA BRIAN null, [facility] 5 07:36:43 Hypothyr oidism 19158923 Active 2022 HYPOTHYR OID REBECA BRIAN null, [facility] 5 07:37:27 Gastroes ophageal reflux disease 289943137 Active 2022 GERD (GASTROE SOPHAGEA L REFLUX DISEASE) REBECA TORRES null, [facility] 5 07:33:58 Hyperten sive disorder 35477790 Active 2022 HYPERTEN MELITA REBECA nunez [facility] 5 07:36:56 Chronic obstruct obey pulmonar y disease 22663856 Active 2022 COPD (CHRONIC OBSTRUCT OBEY PULMONAR Y DISEASE) REBECA nunez [facility] 5 07:32:43 Secondar y immune deficien cy disorder 87667424 Active 2022 REBECA nunez [facility] 5 07:38:44 Chronic headache disorder 037885682 Active 2024 REBECA nunez [facility] 5 15:43:51 Notes:Some problems listed i n Documents: #[id number], #[id number] could not be added to this patient's chart. Please review these documents and add these problems to the patient's chart manually as needed. Problem Notes None recorded. Procedures Surgical History Date Name Laterality Status Provider Name and Address Organization Details Recorded Time 2023 esophagogastroduodenoscopy completed LUCY DEAN PA-C [address] [place], [address], [facility] 4 15:32:12 2023 Cholecystectomy completed LUCY DEAN PA-C [address] [place], [address], [facility], [facility] 4 15:31:48 2022 mammography completed REBECA TORRES [facility], AmnadaL[facility]aya[facility] 3 15:15:05 2018 Colonoscopy completed REBECA TORRES [facility] 3 15:15:23 2015 surgical procedure on cervical spine completed REBECA TORRES [facility], Fidel 5 07:36:27 2012 surgical procedure on lumbar spine completed REBECA TORRES [facility] 5 07:35:26 Imaging Results None recorded. Procedure Notes None recorded. Medical Equipment None Reported. Allergies Allergen ID Allergen Name Allergen Category Reaction Reaction Severity Criticality Documentation Date Start Date Code Code System Note Provider Name and Address Organization Details Recorded Time 56418 morphine sulfate medicatio n decreased blood pressure severe high 04/01/2023 39717 RxNorm React ion: bp drops real low Jo Ann nunez [facility] 4 10:11:21 5113 Demerol medicatio n Not available Not available Not available 03/09/2023 31690 1 RxNorm [facility] 15:16:16 97726 haloperid ol medicatio n Not available Not available Not available 03/30/20242023 5093 RxNorm Jo Ann nunez [facility], AmandaLMadalyn 4 10:11:32 50962 hydrocort isone medicatio n Not available Not available Not available 03/30/20242023 5492 RxNorm Jo Ann nunez [facility], [facility] 4 10:11:32 85070 meperidin e medicatio n Not available Not available Not available 03/30/20242023 6754 RxNorm Jo Ann nunez [facility], [facility] 4 10:11:32 77467 hydromorp carmen medicatio n Not available Not available Not available 03/30/20242023 3423 RxNorm [facility] 4 10:11:32 09626 diphenhyd ramine medicatio n Not available Not available Not available 03/30/20242023 3498 RxNorm Jo Ann nunez [facility], Remi 10:11:32 Medications Name Sig Start Date Stop Date Status Note LastModified by Organization Details LastModified Time thiamine hcl 100mg TAKE ONE TABLET BY MOUTH DAILY 03/09 completed Not Available Not Available Not Available cyclobenz aprine 10 mg tablet TAKE ONE TABLET BY MOUTH THREE TIMES DAILY active Not Available Not Available No t Available amoxicill in 500 mg capsule TAKE ONE CAPSULE BY MOUTH THREE TIMES DAILY UNTIL GONE 11/22 completed Not Available Not Available Not Available megestrol 400 mg/10 mL (40 mg/mL) oral suspensio n TAKE 10 ML BY MOUTH DAILY for appetite 05/30 completed Not Available Not Available Not Available fluticaso ne 250 mcg-salme terol 50 mcg/dose blistr powdr for inhalatio n INHALE ONE INHALATI ON BY MOUTH TWICE DAILY 06/01 completed Not Available Not Available Not Available Tylenol 500 mg capsule every four hours, as needed 06/[address] REYNAGA E; 0; Recorded 10/25/19 23 1:21PM by Rebeca Torres LPN, Office Visit; Not Available Not Available Not Available doxycycli ne hyclate 100 mg capsule TAKE ONE CAPSULE BY MOUTH TWICE DAILY for SEVEN DAYS 11/01 completed Not Available Not Available Not Available atorvasta tin 20 mg tablet TAKE ONE TABLET BY MOUTH DAILY active Not Available Not Available No t Available ropinirol e 1 mg tablet TAKE ONE TABLET BY MOUTH AT BEDTIME 07/11 completed Not Available Not Available Not Available trazodone 50 mg tablet TAKE 1/2 TO 1 TABLET BY MOUTH at bedtime FOR insomnia 11/22 completed Not Available Not Available Not Available amoxicill in 600 mg-potass ium clavulana te 42.9 mg/5 mL oral suspensio n TAKE SIX ML BY MOUTH TWICE DAILY for SEVEN DAYS. discard remainer 07/11 completed Not Available Not Available Not Available hydrocodo ne 5 mg-acetam inophen 325 mg tablet TAKE ONE TABLET BY MOUTH EVERY 6 HOURS NEEDED FOR PAIN 07/11 completed Not Available Not Available Not Available sucralfat e 100 mg/mL oral suspensio n TAKE 10ml BY MOUTH TWICE DAILY 11/14 completed Not Available Not Available Not Available sucralfat e 1 gram tablet TAKE ONE TABLET BY MOUTH TWICE DAILY active Not Available Not Available No t Available thiamine HCl (vitamin B1) 100 mg tablet TAKE ONE TABLET BY MOUTH daily active Not Available Not Available No t Available metronida zole 500 mg tablet TAKE ONE TABLET BY MOUTH EVERY 8 HOURS FOR FIVE DAYS 11/22 completed Not Available Not Available Not Available acetamino phen 300 mg-codein e 30 mg tablet TAKE ONE TABLET BY MOUTH every FOUR hours NEEDED FOR pain 01/25 completed Not Available Not Available Not Available prochlorp erazine maleate 10 mg tablet TAKE ONE TABLET BY MOUTH EVERY 6 HOURS NEEDED FOR NAUSEA AND VOMITING active Not Available Not Available No t Available ciproflox acin 500 mg tablet 11/22 completed Not Available Not Available Not Available levothyro xine 25 mcg tablet TAKE ONE TABLET BY MOUTH EVERY DAY for 30 DAYS.PT NEEDS LABS PRIOR TO MORE REFILLS 2024 active Not Available Not Available Not Avai lable potassium chloride ER 20 mEq tablet,ex tended release(p art/cryst ) TAKE ONE TABLET BY MOUTH EVERY DAY 02/06 completed Not Available Not Available Not Available lorazepam 0.5 mg tablet TAKE ONE TO THREE TABLETS BY MOUTH AT BEDTIME 02/06 completed Not Available Not Available Not Available trazodone 100 mg tablet TAKE ONE TABLET BY MOUTH AT BEDTIME for 90 DAYS active Not Available Not Available No t Available ropinirol e 0.25 mg tablet TAKE TWO TABLETS BY MOUTH DAILY active Not Available Not Available No t Available hydrocort isone 1 % topical cream APPLY TO THE AFFECTED AREA(S) topicall y TWICE DAILY as needed for SKIN irritati on active Not Available Not Available No t Available Lasix 20 mg tablet Take 1 tablet every day by oral route as needed. 2023 active Not Available Not Available Not Avai lable pantopraz ole 40 mg tablet,de layed release TAKE ONE TABLET BY MOUTH EVERY MORNING active Not Available Not Available No t Available polymyxin B sulfate 10,000 unit-trim ethoprim 1 mg/mL eye drops instill ONE drop into THE affected eye(s) EVERY 6 HOURS 12/18 completed Not Available Not Available Not Available metoprolo l tartrate 50 mg tablet TAKE ONE TABLET BY MOUTH TWICE DAILY active Not Available Not Available No t Available docusate sodium 100 mg capsule TAKE ONE CAPSULE BY MOUTH TWICE DAILY active Not Available Not Available No t Available gabapenti n 300 mg capsule TAKE ONE CAPSULE BY MOUTH IN THE MORNING, ONE CAPSULE with LUNCH, AND TWO capsules BY MOUTH nightly active Not Available Not Available No t Available folic acid 1 mg tablet TAKE ONE TABLET BY MOUTH EVERY DAY active Not Available Not Available No t Available allopurin ol 300 mg tablet TAKE ONE TABLET BY MOUTH DAILY active Not Available Not Available No t Available hydrochlo rothiazid e 25 mg tablet TAKE 1 TABLET BY MOUTH ONCE DAILY FOR 1 WEEK 03/09 completed Not Available Not Available Not Available levofloxa julian 750 mg tablet TAKE ONE TABLET BY MOUTH DAILY 11/01 completed Not Available Not Available Not Available hydroxyzi ne HCl 10 mg tablet TAKE ONE TABLET BY MOUTH THREE TIMES DAILY as needed for 10 DAYS active Not Available Not Available No t Available docusate sodium 100 mg tablet daily 06/01 completed 0; Recorded 10/25/19 1:21PM by Rebeca Torres LPN, Office Visit; Not Available Not Available Not Available amoxicill in 875 mg-potass ium clavulana te 125 mg tablet TAKE ONE TABLET BY MOUTH TWICE DAILY for sinusiti s 10/07 completed Not Available Not Available Not Available Tylenol-C odeine No.3 300 mg-30 mg tablet every six hours, as needed 06/[address] Solorzano; 0; Recorded 10/25/19 1:21PM by Rebeca Torres LPN, Office Visit; Not Available Not Available Not Available escitalop daniela 20 mg tablet TAKE ONE TABLET BY MOUTH DAILY NEEDED 02/06 completed Not Available Not Available Not Available metoprolo l tartrate 25 mg tablet two times daily 11/[address] JUHI Garcia; 0; Recorded 10/25/19 1:21PM by Rebeca Torres LPN, Office Visit; Not Available Not Available Not Available Spiriva with [employer] r 18 mcg and inhalatio n capsules INHALE ONE CONTENTS OF ONE CAPSULE BY MOUTH ONCE DAILY, TAKE AT THE SAME TIME EACH DAY 03/30 completed last filled 06/27/22 . HP Not Available Not Available Not Available nitrofura ntoin monohydra te/macroc rystals 100 mg capsule TAKE ONE CAPSULE BY MOUTH EVERY TWELVE HOURS FOR SEVEN DAYS 11/22 completed Not Available Not Available Not Available magnesium daily 06/01 completed Recorded 05/10/20 22 7:25AM by Rebeca Torres LPN, Office Visit; Refill Quantity : 30; Tablet; Not Available Not Available Not Available loratadin e daily 04/13 completed Recorded 05/10/20 22 4:11PM by Lucy Dean PA-C, Office Visit; Refill Quantity : 30; Capsule; Not Available Not Available Not Available atorvasta tin daily 06/01 completed KM/sd; [address]30; Recorded 05/10/20 7:25AM by Rebeca Torres LPN (Authori sebas through Lucy Dean PA-C), Office Visit; Mail Order Quantity : 100 Tablet; Refill Quantity : 30; Tablet; Not Available Not Available Not Available calcium daily 07/11 completed Not Available Not Available Not Available metoprolo l tartrate two times daily 02/25 completed DUPLICAT E MEDICATI ON ON CHART Not Available Not Available Not Available lorazepam three times daily, as needed 06/[address] Solorzano; 0; Recorded 10/25/19 23 1:21PM by Rebeca Torres LPN, Office Visit; Not Available Not Available Not Available folic acid qd 06/01 completed vo KM/dh; 87463; Recorded 10/24/19 23 3:01PM by Rebeca Torres LPN (Authori sebas through Lucy Dean PA-C), Refill Request; Refill Quantity : 90; Tablet; Not Available Not Available Not Available Vitamin D3 daily active Not Available Not Available Not Available Carafate two times daily 2022 active Not Available Not Available Not Avai lable THSC Levothyro xine Sodium daily 06/01 completed vo KM/dh NOTE NEW STRENGTH AND DOSE; Recorded 10/25/19 2:14PM by Lucy Dean PA-C, Office Visit; Refill Quantity : 90; Tablet; Not Available Not Available Not Available Advair Diskus two times daily 2021 active Not Available Not Available Not Avai lable Trazodone at bedtime 06/[address] Solorzano; 0; Recorded 10/25/19 1:21PM by Rebeca Torres LPN, Office Visit; Not Available Not Available Not Available hydrochlo rothiazid e 12.5 mg tablet TAKE ONE TABLET BY MOUTH DAILY 02/06 completed Not Available Not Available Not Available ClearLax 17 gram/dose oral powder DISSOLVE 17grams in liquid AND drink DAILY active Not Available Not Available No t Available budesonid e DR-ER 9 mg tablet,de layed and extended release TAKE 1 TABLET BY MOUTH EVERY DAY 03/09 completed Not Available Not Available Not Available Pro-Stat AWC 17 gram-100 kcal/30 mL oral liquid Take 30 mL every day by oral route for 30 days. 02/06 completed Not Available Not Available Not Available potassium chloride ER 20 mEq tablet,ex tended release 07/11 completed Not Available Not Available Not Available Brukinsa 80 mg capsule TAKE TWO capsules BY MOUTH TWICE DAILY 07/11 completed Not Available Not Available Not Available Calquence (acalabru tinib maleate) 100 mg tablet TAKE ONE TABLET BY MOUTH DAILY active Not Available Not Available No t Available Itch Relief (HC) with aloe 1 % topical cream APPLY TO THE AFFECTED AREA(S) topicall y TWICE DAILY as needed for SKIN irritati on active Not Available Not Available No t Available Vitals Date Recorded Body height Body mass index (BMI) Body weight Body temperature Oxygen saturation Oxygen saturation in Arterial blood by Pulse oximetry Heart rate Systolic And Diastolic Provider Name and Address Organization Details Last Updated DateTime 5 152.4 cm 19.2 kg/m2 93483.4 5 g 97.6 [degF] 99 % 99 % 91 /min 94/58 mm[Hg] Amairani Mercedes [facility] 5 11:38:30 Date Recorded Body height Body mass index (BMI) Body weight Oxygen saturation Oxygen saturation in Arterial blood by Pulse oximetry Heart rate Respiratory rate Body temperature Systolic And Diastolic Provider Name and Address Organization Details Last Updated DateTime 5 152.4 cm 19.7 kg/m2 28239.8 3 g 99 % 99 % 88 /min 18 /min 97.9 [degF] 100/60 mm[Hg] [facility] 12:59:30 Date Recorded Body height Body mass index (BMI) Body weight Oxygen saturation Oxygen saturation in Arterial blood by Pulse oximetry Heart rate Respiratory rate Body temperature Systolic And Diastolic Provider Name and Address Organization Details Last Updated DateTime 5 152.4 cm 20.3 kg/m2 79447.6 1 g 89 % 89 % 80 /min 18 /min 97 [degF] 110/70 mm[Hg] [facility] 5 10:58:52 Date Recorded Body height Body mass index (BMI) Body weight Oxygen saturation Oxygen saturation in Arterial blood by Pulse oximetry Heart rate Respiratory rate Body temperature Systolic And Diastolic Provider Name and Address Organization Details Last Updated DateTime 5 152.4 cm 21.1 kg/m2 88230.9 8 g 90 % 90 % 70 /min 18 /min 98 [degF] 116/72 mm[Hg] [facility] 09:06:02 Date Recorded Body height Body mass index (BMI) Body weight Oxygen saturation Oxygen saturation in Arterial blood by Pulse oximetry Heart rate Respiratory rate Body temperature Systolic And Diastolic Provider Name and Address Organization Details Last Updated DateTime 4 152.4 cm 19.6 kg/m2 12006.9 4 g 97 % 97 % 98 /min 20 /min 97.7 [degF] 110/70 mm[Hg] [facility] 4 14:30:43 Social History Question Answer Notes LastModified by Organizat ion Details LastModified Time Tobacco Smoking Status Never Smoker Jo Ann Ballard mayra, [facility] 05/15/2024 10:42:12 What Was The Date Of Your Most Recent Tobacco Screening? 05/15/2024 Information not available 05/15/2024 Sex: Unknown Functional Status Question Answer Note LastModified by Organizat ion Details LastModified Time Do you use any illicit or recreational drugs? No Information not available 05/15/2024 What is your level of alcohol consumption? Occasional Information not available 05/15/2024 Mental Status None recorded. Family History Nothing Reported. Medical History Condition Response Cancer Y Gynecological HistoryNo gynecological history recorded. Obstetrics History GPAL:G 0 P 0 0 0 0 Immunizations Vaccine Type Date Status Note Provider Nam e and Address Organization Details Recorded Time Pneumococcal conjugate PCV20, polysaccharide YSB229 conjugate, adjuvant, 5 completed REBECA nunez [facility] 05/30/2025 09:50:52 Influenza, split virus, trivalent, 5 completed REBECA nunez [facility] 05/30/2025 09:50:52 Influenza, split virus, trivalent, 4 [facility] 07/11/2024 15:31:17 Past Encounters Encounter ID Performer Location Encounter Start Date Encounter Closed Date Diagnosis/Indication Diagnosis SNOMED-CT Code Diagnosis ICD10 Code Diagnosis IMO Codes Diagnosis Note [id number] LUCY DEAN PA-C [facility] ([facility]) [address] [place] [address] 03/09/2023 15:03:24 03/19/2023 23:07:45 Adult health examination 722107485 Z00.00 Secondary immune deficiency disorder 86589535 D84.9 on immunosupp ressive drugs for her Waldenstro ms [place]str m macroglobulinemia 873860120 C88.[address] [facility] oncology Neuropathy 197974077 G62 .9 secondary to her Waldenstro ms. Esophageal dysmotility due to systemic disease 116864020 K22.4 [id number] LUCY DEAN PA-C [facility] ([facility]) [address] [place] [address] 04/13/2023 14:05:08 04/13/2023 16:51:51 Hyponatremia 62307429 E87.1 [id number] LUCY DEAN PA-C [facility] ([facility]) [address] [place] [address] 06/01/2023 11:23:08 06/01/2023 13:21:30 Dysuria 25358090 R30.0 Pain of le ft knee joint 9493097080 77784 M25.562 handout of home exercises given and explained today Acute urin benji tract infection 226203804 N39.0 [id number] LUCY DEAN PA-C [facility] ([facility]) [address] [place] [address] 11/23/2023 14:19:52 11/24/2023 16:51:49 Constipation 06964459 K59.00 [place] m macroglobulinemia 240534875 C88.0 followed with [facility] A form filled out during today's office visit Chronic insomnia 6621517 04 F51.04 Secondary restless legs syndrome 908652781 G25.81 Bacterial conjunctivitis 219988993 H10.9 Patient immunocompromised 138607111 D84.9 Chronic ob structive pulmonary disease 25039810 J44.9 Bilateral peripheral neuropathy of lower limbs 9638071643 6264565 G63 Hypothyroidism 56120880 E03.9 [id number] LUCY DEAN PA-C [facility] ([facility]) [address] [place] [id number] 12/19/2023 11:40:05 12/19/2023 16:42:12 Hyponatremia 38287936 E87.1 Iron defic iency anemia 52702894 D50.9 [place] m macroglobulinemia 900288163 C88.0 followed with [facility] A form filled out during today's office visit Weakness o f distal arms and legs 582453109 M62.81 need of Home health for OT/ PT for strengthen ing and endurance. high fall risk In Home care assess referal to help with house work and shopping due to health limitation s. Face to Face for 4 wheeled walker with seat and brakes due to weakness and fall risk. Will help her perform ADLs and improve her quality of life/ [id number] LUCY DEAN PA-C [facility] ([facility]) [address] [place] [phone] 5 01/30/2024 11:29:36 01/30/2024 16:14:53 Dependent edema [id number] R60.0 chris wraps placed today. advised to get some mild compressio n socks knee high to help with swelling Hypoalbuminemia [id number] 4 E88.09 protein goal 50-70 grams a day. btwn that and compressio n socks I am hoping to help with her swelling. I don't want to use lasix due to already low NA Hyponatremia 98268338 E8 7.1 STOP HCTZ. oncology restarted and pt is taking again but I really think this is part of the problem.re checks labs in one week [id number] FARRAH CALVERT [facility] ([facility]) [address] [place] [address] [phone] 5 05/15/2024 10:35:57 05/15/2024 11:38:41 Cough [id number] R05.9 Acute bact erial bronchitis 429214431 J20.9 Discussed use of otc medication s for symptom management .Push oral fluids and rest.If you develop fever, sob, or start feeling worse then return for re-evaluat ion. [id number] LUCY DEAN PA-C [facility] ([facility]) [address] [place] [address] [phone] 5 07/11/2024 14:24:41 07/11/2024 15:20:39 Edema of lower extremity 070325083 R60.0 Hypoalbumi nemia due to protein calorie malnutrition 5975593601 9109 E46 Moderate protein-calorie malnutrition (weight for age 60-74 percent of standard) 520285725 E44.0 Administra tion of influenza vaccine 50305637 Z23 [id number] FARRAH CALVERT [facility] ([facility]) [address] [place] [address] [phone] 5 10/07/2024 11:29:20 10/07/2024 16:29:52 Influenza-like illness 94341438 B34.9 Discussed to alternate tylenol/mo leia for fever control. Rest and push oral fluids.If you develop sob, wheezing, no urine output over 24 hours, or feel symptoms are worsening then please return for re-evaluat ion.May return to work/schoo l when you have no fever for 24 hours without the use of tylenol/mo leia. [id number] LUCY DEAN PA-C [facility] ([facility]) [address] [place] [address] [phone] 5 11/01/2024 12:26:44 11/01/2024 14:01:26 Acute exacerbation of chronic obstructive pulmonary disease 028798333 J44.1 finished Levquin Chronic he adache disorder 660724558 G44.89 daily quinteros with worseing daily pain behind the right eye. will wake from sleep. dizzy, falls. no vision change.I feel an MRI is necessary to r/u tumor, bleed and aneurysm. currently with leukemia under active chemothera py. Pain of le ft shoulder joint [id number] 3617423 M25.512 Itching of skin 17970013 0 L29.9 Chronic ob structive pulmonary disease 06819041 J44.9 Polyneuropathy 50669358 G63 Hypothyroidism 51988811 E03.9 Chronic re spiratory failure 67359409 J96.10 [id number] LUCY DEAN PA-C [facility] ([facility]) [address] [place] [address] [phone] 5 02/06/2025 10:26:04 02/06/2025 14:22:08 Chronic hyponatremia 48087700 E87.1 STOP HCTZ. oncology restarted and pt is taking again but I really think this is part of the problem.re checks labs in one week STOP lexapro, HCTZ, Kcl, Lasix, and atorvastat in [place] macroglobulinemia 684960970 C88.[address] Garner with [facility] now Benign ess ential hypertension 9619264 I10 3379 stop HCTZ [id number] LUCY DEAN PA-C [facility] ([facility]) [address] [place] [address] 05/30/2025 08:52:51 05/30/2025 09:48:31 Hypertensive disorder 44177353 I10 stop HCTZ at goal today [place] macroglobulinemia 625883809 C88.[address] Garner with [facility] [place] now. seeing him montly for nowOn daily [place] for tx. she is seeing neurology at [facility] as well but has not heard results of her NCS yet. Vaccination needed 49657 40953 07196 Z23 763998 Administra tion of influenza vaccine 10100261 Z23 Requires v accination against Streptococcus pneumoniae 4167573695 Z23 324544 Health Concerns Section Related Observation LastModified by Organization Detai ls LastModified Time None Recorded Concern Status LastModified by Organization Details LastModified Time None Recorded Advance Directives Directive None Recorded Payers Insurance Date Sequence Insurance Name Policy Number Policy Dixon Covered Member ID Dixon Member ID Guarantor Name 06/05/2025 [place] [facility] Yulisa Kinney [id number] Yulisa Kinney 06/05/2025 1 [facility] [place] [facility] DV[place] - [place]MO) Yulisa Kinney [id number] Yulisa Kinney 05/30/2025 2 [place] Yulisa Kinney [id number] Yulisa Kinney Notes Date Note Type Note Provider Name and Address Organization Details Recorded Time 07/11/20 24 text/ht ml EdemaReported by PatientHPIFor quality, patient reportspainfulbut reportslegs swell equallyandimproves overnight. For context, patient reportsprior history of edema. For location, patient reportsble. For severity, patient reportsmildandmoderate. For duration, patient reportsconstant. For modifying factors, patient reportsrelieved by position (elevating legs). For associated symptoms, patient reportsno shortness of breath,no cough,no chest pain, andno palpitations. LUCY DEAN PA-C [address] [place], [address], [facility] - [facility], Fidel 07/11/2024 15:19:42 10/07/19 25 text/ht ml ROS as noted in the HPI walk inx 1 week cough, nasal congestion, fever, no otc meds used. no thermometer at home to check temp. is drinking well but no appetite. ALLI ALONSO, AUXILIARY OPERATOR [address] [place], [address], [facility], Remi 10/12/2024 08:26:28 11/01/19 25 text/ht ml HeadacheReported by PatientHPIFor quality, patient reportsaching,throbbing,tightness , andpiercing/stabbing (lancinating)but reportssimilar to previous headaches. For location, patient reportsbilateral. For severity, patient reportsmoderateandpain level 6/10. For duration, patient reportsintermittent episodes lasting:andhas noted for ___ __. For onset/timing, patient reportsgradual,still present,occur daily, andrecurrent. For aggravating factors, patient reportsmoving head.piercing QUINTEROS right side of head thru the cheek and the eye. x 2 months worse with bending over. no visual changes. very dizzy and falls Sinusitis/AllergyReported by PatientHPIFor quality, patient reportsweak voice,hoarseness, andcongested(i cant cough it up its in my chest). For location, patient reportsmaxillary. For severity, patient reportsmoderate. For duration, patient reportsfrequentandcontinuous. Musculoskeletal PainReported by PatientHPIFor quality, patient reportssharp,tingling, anddull. For severity, patient reportsworsening,interferes with sleep, andinterferes with work/school. For associated symptoms, patient reportsweak limbs. For location, patient reportsleft shoulder. For duration, patient reportspresent <1 month. For timing, patient reportsconstant. For alleviating factors, patient reportsrestandchanging position. For aggravating factors, patient reportsmovement/positioning. For adls affected, patient reportssweeping,mopping,bathing,d ressing, andclimbing stairs. I pulled the dog on his leash yesterday and felt something pull in my left shoulder it swelled up last night.I dont see oncology till next week my ride didnt show up yesterday.I finished the levaquin Lucy sent in yesterday. LUCY DEAN PA-C [address] [place], [address], [facility] 11/01/2024 14:00:45 02/07/20 25 text/ht ml COPDReported by PatientHPI:For aggravating factors, patient reportsworse in a supine positionandworse with exertion. For onset/timing, patient reportsintermittentandmultiple times per day. For duration, patient reportschronicandhas noted for years. For severity, patient reportsmoderate. For context, patient reportsfamily history of copd. For alleviating factors, patient reportsrelieved with oxygen. 02 at home usually wears it and uses 2lpm, felt ok today left it at homeShe is switching her onolonogist to [facility]. She has had her first bone marrow and blood work done. She is being enrolled in a trial study. LUCY DEAN PA-C [address] [place], [address], [facility] 02/06/2025 14:12:16 05/30/20 25 text/ht ml HypothyroidReported by PatientHPIFor associated symptoms, patient reportsweakness,fatigue, andcold intolerance. For reason for visit, patient reportsgeneral check-up. For duration, patient reports>12 months. For treatment, patient reportstaking medication as prescribed. Care Management - HypertensionReported by PatientHPIFor associated symptoms, patient reportsshortness of breathbut reportsno dizziness,no lightheadedness,no chest pain, andno edema. For prognosis, patient reportsexpected outcome: no changeandprognosis: good. For self care, patient reportsblood pressure goal: 120/70andusing an chris inhibitor. For severity, patient reportssymptoms are improvinganddoes not interfere with daily activities. Dr Jackson referred me to [facility] so I only see them not oncology here.Swelling is improved with her improved nutrition. LUCY DEAN PA-C [address] [place], [address], [facility] - [facility], [place] 05/30/2025 09:45:37 OBGyn Episode No OBEpisode recorded.
--- OUTSIDE RECORDS SUMMARY | 2025-06-20 11:05 | XMS_ITS | Clinical Summary ---
Author Organization [facility] de Address [address] [place] [address] Phone Care Team Providers Care Vp Public Relations Name Role Phone Unavailable Primary Care Provider Unavailabl e Social History Tobacco Use Types Packs/Day Years Used Date Smoking Tobacco: Never Assessed Comments Unknown Sex and Gender Information Value Date Recorded Sex Assigned at Not on file Legal Sex Female 3:31 PM CDT Gender Identity Not on file Sexual Orientation Not on file Plan of Treatment Health Maintenance Due Date Last Done Comments DTAP/TDAP/TD VACCINES (1 - Tdap) 1980 HPV/Cotest (21-29) 1982 CERVICAL CANCER SCREENING 1991 HPV/Cotest (30-65) 1991 PAP SMEAR 1991 BREAST CANCER SCREENING 2001 COLORECTAL SCREENING 2006 Colorectal Cancer Screening 2006 FIT-DNA Q 3 years 2006 FIT/FOBT Q 1 year 2006 Flex Sig/CT Colonography Q 5 years 2006 ZOSTER VACCINE (1 of 2) 2011 INFLUENZA VACCINE (#1) 2025 RSV VACCINE (60+ or ) (1 - 1-dose 75+ series) 2036 Insurance MEDICAID [place] [facility] DUAL COMPLETE HMO DSNP [facility] [id number]
--- NOTE | 2025-06-20 11:07 | XR_ITS ---
WS: [id number] XR chest 1V portable [id number] REASON FOR EXAM: Weakness FINDINGS: Chemotherapy infusion port over the medial right chest with trans right internal jugular infusion catheter with the tip in the distal SVC. The chest is otherwise unchanged compared to the previous examination. Moderate tortuosity and ectasia of the ascending and descending thoracic aorta. Normal heart size. Chronic interstitial changes in the lower lung ferrara. No acute pulmonary parenchymal or pleural abnormality. No focal bony abnormality. XR/XR chest 1V portable [id number] IMPRESSION: No acute chest abnormality.
--- NOTE | 2025-06-20 11:16 | W.ED.GENADLT ---
HPI - General Adult General: Chief complaint: General Medical Stated complaint: sick Time Seen by Provider: 06/20/25 11:09 History of Present Illness: 64-year-old female with a history of Waldenstr?m's macroglobulinemia, continued immunologic therapy, fibromyalgia, hyperlipidemia, hypertension and peripheral neuropathy who presents to the emergency room with upper respiratory symptoms. She has had congestion and cough with pleuritic chest pain. She says this been for about 3 to 4 days. She has had malaise/body aches. She has had a fever last night to 102. No altered mental status. No focal motor deficits. No abdominal pain. No vomiting. Related Data Home Medications ?Medication ?Instructions ?Recorded ?Confirmed ascorbic acid (vitamin C) 500 mg 500 mg PO BID 12/05/19 03/19/25 tablet (Vitamin C) calcium 500 mg (as 1 tab PO DAILY 12/05/19 03/19/25 carbonate)-vitamin D3 5 mcg (200 unit) tablet (Calcium 500 + D) cyclobenzaprine 10 mg tablet 10 mg PO TID 12/05/19 03/19/25 allopurinol 300 mg tablet 300 mg PO QAM 02/26/20 03/19/25 atorvastatin 20 mg tablet (Lipitor) 20 mg PO QPM 02/26/20 03/06/25 folic acid 1 mg tablet 1 mg PO QAM 05/13/20 03/19/25 metoprolol tartrate 50 mg tablet 50 mg PO BID 09/10/23 03/19/25 hydrochlorothiazide 12.5 mg tablet 12.5 mg PO DAILY 12/20/23 03/19/25 ropinirole 0.25 mg tablet 0.25 mg PO BEDTIME 05/09/24 03/19/25 escitalopram oxalate 20 mg tablet mg PO 07/17/24 03/06/25 potassium chloride 20 mEq meq PO 07/17/24 03/19/25 tablet,extended release(part/cryst) thiamine HCl (vitamin B1) 100 mg mg PO 07/17/24 03/19/25 tablet hydroxyzine HCl 10 mg tablet 10 mg PO TID PRN 11/07/24 03/19/25 sucralfate 1 gram tablet 1 g PO BID 11/18/24 03/19/25 trazodone 100 mg tablet mg PO 07/16/25 07/16/25 Previous Rx's ?Medication ?Instructions ?Recorded Seated walker #1 ea 01/27/21 levothyroxine 25 mcg tablet 25 mcg PO QAM #30 tabs 11/27/21 lorazepam 0.5 mg tablet 0.5 - 1.5 mg (1 - 3 x 0.5 mg) PO 03/11/24 BEDTIME #90 tabs megestrol 400 mg/10 mL (10 mL) 400 mg (10 mL) PO DAILY appetite 06/11/24 oral suspension #300 mL pantoprazole 40 mg tablet,delayed 40 mg PO DAILY #30 tabs 07/31/24 release gabapentin 300 mg capsule See Rx Instructions .Route 08/09/24 .COMPLEX #270 caps prochlorperazine maleate 10 mg See Rx Instructions .Route 09/12/24 tablet .COMPLEX #30 tabs polyethylene glycol 3350 17 4 g PO DAILY #119 grams 11/07/24 gram/dose oral powder hydrocortisone 1 % topical cream See Rx Instructions .Route 01/21/25 .COMPLEX #28.4 grams acalabrutinib maleate 100 mg 100 mg PO DAILY #30 tabs 04/01/25 tablet (Calquence (acalabrutinib maleate)) dexamethasone 6 mg tablet 6 mg PO DAILY 5 days #5 tabs 06/20/25 doxycycline hyclate 100 mg capsule 100 mg PO BID 7 days #14 caps 06/20/25 Allergies Allergy/AdvReac Type Severity Reaction Status Date / Time hydrocortisone (From Allergy Severe Elevated Verified 03/19/25 14:17 Cortizone-10) heart rate hydromorphone (From Dilaudid) Allergy Severe Hallucinati Verified 03/19/25 14:17 ons meperidine (From Demerol) Allergy Severe Excessive Verified 03/19/25 14:17 vomitting morphine Allergy Severe Heart rate Verified 03/19/25 14:17 drops cortisone Allergy Unknown headache Verified 03/19/25 14:17 diphenhydramine (From Allergy ADR/ALGY-Pa Verified 03/19/25 14:17 Benadryl) lpitations haloperidol (From Haldol) Allergy difficulty Verified 03/19/25 14:17 breathing Review of Systems Narrative: Constitutional symptoms: Negative except as documented in HPI. Skin symptoms: Negative except as documented in HPI. Eye symptoms: Negative except as documented in HPI. ENMT symptoms: Negative except as documented in HPI. Respiratory symptoms: Negative except as documented in HPI. Cardiovascular symptoms: Negative except as documented in HPI. Gastrointestinal symptoms: Negative except as documented in HPI. Genitourinary symptoms: Negative except as documented in HPI. Musculoskeletal symptoms: Negative except as documented in HPI. Neurologic symptoms: Negative except as documented in HPI. Psychiatric symptoms: Negative except as documented in HPI. Endocrine symptoms: Negative except as documented in HPI. PFSH ED PFSH: Medical History (Updated 06/20/25 @ 12:56 by Kelley Posada MD) Port-A-Cath in place 05/20 Helicobacter pylori gastritis Recurrent pneumonia Hypersomnolence Lumbar post-laminectomy syndrome Cervical post-laminectomy syndrome Peripheral neuropathy Hypothyroidism Restless leg syndrome Anxiety Degenerative arthritis Fibromyalgia Hyperlipidemia Hypertension Waldenstrom macroglobulinemia Lumbar radiculopathy Carpal tunnel syndrome, bilateral upper limbs Surgical History History of cholecystectomy (09/11/23) Hx of colonoscopy History of esophagogastroduodenoscopy (EGD) H/O section x 2 History of facial surgery 1991 Following trauma, x3 History of shoulder surgery Right rotator cuff repair x 2 History of cervical spinal surgery [facility]: 02/14/2017 Posterolateral cervical fusion C2-C6 03/02/2016 C3-C4 ACDFF, removal of prior anterior cervical plate, C4-C5 2004 C4-C5 ACDFF All operative reports scanned to chart History of lumbar surgery 2013, 2011 and 2010 [facility]: Lumbar fusion/fixation Family History Mother Lung disease Father Myocardial infarction Hypertension Diabetes Social History Smoking and tobacco/nicotine status: never used tobacco/nicotine Quit status (tobacco/nicotine): has quit using Year quit tobacco: 2006 Former quit date comment: 1 ppd x 35 years Alcohol intake: current Alcohol intake frequency: few times a week Substance/Drug Use: never Household members: significant other Marital status: Life Partner Current occupational status: disabled Physical Exam Narrative: EXAM NARRATIVE: General: Alert, no acute distress. Skin: Warm, dry. Head: Normocephalic, atraumatic. Neck: Supple, trachea midline. Eye: Extraocular movements are intact. Ears, nose, mouth and throat: Tacky oral mucosa, redness around her nose and upper lip. Cardiovascular: Regular, Normal peripheral perfusion. Respiratory: Lungs are clear to auscultation, respirations are non-labored, breath sounds are equal, Symmetrical chest wall expansion. Gastrointestinal: Soft, Nontender, Non distended Musculoskeletal: Normal ROM, no deformity. Neurological: Alert and oriented, No focal neurological deficit observed. Psychiatric: Cooperative, appropriate mood & affect. Course Vital Signs: Vital signs: Vital Signs Temperature 98.4 F 06/20/25 11:01 Pulse Rate 86 06/20/25 12:21 Respiratory Rate 16 06/20/25 12:21 Blood Pressure 127/69 06/20/25 12:21 Pulse Oximetry 90 06/20/25 12:21 Oxygen Delivery Me thod Room Air 06/20/25 12:21 MDM - General Adult Medical Decision Making Differential diagnosis for patient with fever, cough, upper respiratory symptoms includes but is not limited to and based on the above HPI, review of systems and physical exam: Pneumonia. Bronchitis. Asthma or COPD with acute exacerbation. Acute coronary syndrome / HI. Pulmonary embolism. Anxiety. Congestive heart failure. Viral infections including influenza and Covid-19. Atrial fibrillation. Anxiety. Pleural effusion. Pneumothorax. Orders placed to evaluate differential diagnosis based on the above differential, HPI and physical exam Lab Review: Laboratory results were reviewed and interpreted by myself the emergency room physician. Mild leukocytosis. No anemia. No renal failure. Flu COVID and RSV are negative Chest x-ray: No acute process. No infiltrate. No pneumothorax. This was reviewed and interpreted by myself the emergency room physician. I also reviewed the radiology report. I reviewed the patient's medical record. 64-year-old female with a history of Waldenstr?m's macroglobulinemia, continued immunologic therapy, fibromyalgia, hyperlipidemia, hypertension and peripheral neuropathy Reexamination: Patient remained stable. No increased work of breathing. No altered mental status. No focal motor deficits. No oxygen requirement Assessment and plan: Upper respiratory infection Dehydration Chronic hyponatremia ?IV normal saline bolus, IV Decadron and IV Rocephin in the emergency room - Discharged home - Discussed plan with patient. Answered any questions. - Evaluation and treatment of this problem were appropriate in the emergency setting. Lab Data 06/20/25 11:29 06/20/25 11:29 Radiology Impressions Chest X-Ray 06/20/25 11:07 IMPRESSION: No acute chest abnormality. Laboratory Results WBC 11.98 10^3/uL (3.29-11.43) H 06/20/25 11:29 RBC 3.72 10^6/uL (3.85-5.65) L 06/20/25 11:29 Hgb 11.70 g/dL (11.27-16.99) 06/20/25 11:29 Hct 35.2 % (36-47) L 06/20/25 11:29 MCV 94.6 fl (85-98) 06/20/25 11:29 MCH 31.5 pg (27-33) 06/20/25 11:29 MCHC 33.2 g/dL (30-55) 06/20/25 11: RDW 13.4 % (12.1-15.1) 06/20/25 11:29 Plt Count 142 10^3/cmm (157-399) L 06/20/25 11: MPV 9.7 fL (7.4-10.4) 06/20/25 11: Neut % (Auto) 73.1 % 06/20/25 11: Lymph % (Auto) 14.8 % 06/20/25 11: Faulk % (Auto) 11.4 % 06/20/25 11: Eos % (Auto) 0.0 % 06/20/25 11: Baso % (Auto) 0.3 % 06/20/25 11:29 Neut # (Auto) 8.77 10^3/uL (1.8-7.7) H 06/20/25 11: Lymph # (Auto) 1.8 10^3/uL (0.8-4.8) 06/20/25 11:29 [place]ulk # (Auto) 1.4 10^3/uL (0.2-0.9) H 06/20/25 11:29 Eos # (Auto) 0.0 10^3/uL (0.0-0.8) 06/20/25 11:29 Baso # (Auto) 0.0 10^3/uL (0.0-0.1) 06/20/25 11:29 Nucleated RBC % (auto) 0 % 06/20/25 11:29 Nucleated RBCs # 0.0 /100WBC 06/20/25 11:29 Sodium 128 mmol/L (136-145) L 06/20/25 11:29 Potassium 3.7 mmol/L (3.5-5.1) 06/20/25 11:29 Chloride 89 mmol/L (98-107) L 06/20/25 11:29 Carbon Dioxide 26 mmol/L (22-29) 06/20/25 11:29 Anion Gap 16.7 (5-19) 06/20/25 11:29 BUN 12 mg/dL (8-23) 06/20/25 11:29 Creatinine 0.7 mg/dL (0.5-0.9) 06/20/25 11:29 GFR Calculation 84.5 mL/min (90-130) L 06/20/25 11:29 Glucose 117 mg/dL (65-115) H 06/20/25 11:29 Calculated Osmolality 267 mOsm/kg (285-295) L 06/20/25 11:29 Lactic Acid 1.5 mmol/L (0.5-2.2) 06/20/25 11:29 Calcium 9.4 mg/dL (8.5-10.5) 06/20/25 11:29 Total Bilirubin 1.3 mg/dL (0.15-1.2) H 06/20/25 11:29 AST 25 U/L (0-32) 06/20/25 11:29 ALT 12 U/L (0-33) 06/20/25 11:29 Alkaline Phosphatase 74 U/L (35-105) 06/20/25 11:29 C-Reactive Protein 40.0 mg/L (0.0-4.9) H 06/20/25 11:29 Total Protein 8.0 g/dL (6.6-8.7) 06/20/25 11:29 Albumin 4.2 g/dL (3.5-5.2) 06/20/25 11:29 Globulin 3.8 g/dL (1.3-4.6) 06/20/25 11:29 Urine Color Yellow (Yellow) 06/20/25 12:30 Urine Appearance Clear (CLEAR) 06/20/25 12:30 Urine pH 7.0 (5-7) 06/20/25 12:30 Ur Specific [place] 1.009 (1.005-1.030) 06/20/25 12:30 Urine Protein Negative (Negative) 06/20/25 12:30 Urine Glucose (UA) Negative (Normal) 06/20/25 12:30 Urine Ketones Negative (Negative) 06/20/25 12:30 Urine Blood Negative (Negative) 06/20/25 12:30 Urine Nitrate Negative (Negative) 06/20/25 12:30 Urine Bilirubin Negative (Negative) 06/20/25 12:30 Urine Urobilinogen 1.0 mg/dL (Negative) 06/20/25 12:30 Ur Leukocyte Esterase Negative (Negative) 06/20/25 12:30 Urine RBC 0-2 /hpf (0-2) 06/20/25 12:30 Urine WBC 0-5 /hpf (0-5) 06/20/25 12:30 Ur Squamous Epith Cells 0-5 /hpf (0-5) 06/20/25 12:30 Amorphous Sediment Not Reportable 06/20/25 12:30 Urine Bacteria None seen /hpf (NONE) 06/20/25 12:30 Hyaline Casts 0-4 /lpf H 06/20/25 12:30 Influenza A (PCR) Negative (Negative) 06/20/25 11:12 Influenza Type B (PCR) Negative (Negative) 06/20/25 11:12 RSV (PCR) Negative (Negative) 06/20/25 11:12 SARS-CoV-2 (PCR) Negative (Negative) 06/20/25 11:12 All radiology interpretation(s) finalized by discharge Discharge Plan Discharge Patient Disposition: Home Clinical Impression: Acute upper respiratory infection, Dehydration, Chronic hyponatremia Condition: Stable Prescriptions: New doxycycline hyclate 100 mg capsule 100 mg PO BID 7 Days Qty: 14 0RF dexamethasone 6 mg tablet 6 mg PO DAILY 5 Days Qty: 5 0RF No Action (DME) Seated walker See Rx Instructions .Route .MEDSUPPLY Qty: 1 0RF Rx Instructions: As directed folic acid 1 mg tablet 1 mg PO QAM ropinirole 0.25 mg tablet 0.25 mg PO BEDTIME pantoprazole 40 mg tablet,delayed release (DR/EC) 40 mg PO DAILY Qty: 30 0RF Rx Instructions: TAKE ONE TABLET BY MOUTH EVERY MORNING megestrol 400 mg/10 mL (10 mL) suspension 400 mg PO DAILY Qty: 300 2RF thiamine HCl (vitamin B1) 100 mg tablet PO potassium chloride 20 mEq tablet,ER particles/crystals PO escitalopram oxalate 20 mg tablet PO hydroxyzine HCl 10 mg tablet 10 mg PO TID PRN polyethylene glycol 3350 17 gram/dose powder 4 g PO DAILY Qty: 119 0RF sucralfate 1 gram tablet 1 g PO BID trazodone 100 mg tablet PO lorazepam 0.5 mg tablet 0.5 - 1.5 mg PO BEDTIME Qty: 90 0RF gabapentin 300 mg capsule See Rx Instructions .ROUTE .COMPLEX Qty: 270 0RF Dose Instruction: TAKE ONE CAPSULE BY MOUTH IN THE MORNING AND THEN TAKE TWO CAPSULES BY MOUTH IN THE EVENING Rx Instructions: TAKE ONE CAPSULE BY MOUTH IN THE MORNING AND THEN TAKE TWO CAPSULES BY MOUTH IN THE EVENING prochlorperazine maleate 10 mg tablet See Rx Instructions .ROUTE .COMPLEX Qty: 30 1RF Dose Instruction: TAKE ONE TABLET BY MOUTH EVERY 6 HOURS NEEDED FOR NAUSEA AND VOMITING Rx Instructions: TAKE ONE TABLET BY MOUTH EVERY 6 HOURS NEEDED FOR NAUSEA AND VOMITING hydrocortisone 1 % cream See Rx Instructions .ROUTE .COMPLEX Qty: 28.4 1RF Dose Instruction: APPLY TO THE AFFECTED AREA(S) topically TWICE DAILY as needed for SKIN irritation Rx Instructions: APPLY TO THE AFFECTED AREA(S) topically TWICE DAILY as needed for SKIN irritation Calquence (acalabrutinib mal) 100 mg tablet 100 mg PO DAILY Qty: 30 3RF atorvastatin [Lipitor] 20 mg Tablet 20 mg PO QPM allopurinol 300 mg Tablet 300 mg PO QAM cyclobenzaprine 10 mg Tablet 10 mg PO TID Rx Instructions: Take 10 mg by mouth in the morning and 20mg at bedtime. ascorbic acid (vitamin C) [Vitamin C] 500 mg Tablet 500 mg PO BID calcium carbonate-vitamin D3 [Calcium 500 + D] 500 mg(1,250mg) -200 unit Tablet 1 tab PO DAILY Rx Instructions: Take 1 tablet by mouth in the morning and 2 tablets in the evening. levothyroxine 25 mcg Tablet 25 mcg PO QAM Qty: 30 0RF metoprolol tartrate 50 mg tablet 50 mg PO BID hydrochlorothiazide 12.5 mg tablet 12.5 mg PO DAILY Discharge Orders: Discharge ED (Routine); Ordered 06/20/25 Ordered By: Kelley Posada Referrals: Lucy Dean PA [Primary Care Provider, [facility]] Discharge Diet: Usual diet Discharge Activity: Increase activity as tolerated Patient Instructions: Acute Bronchitis (ED), Opioid Safety, Pain Management, Patient Portal & Rafa Instructions Activity Restrictions/Additional Instructions: Thank you for choosing [facility] for your healthcare needs today. You have been screened and evaluated and felt safe for discharge. Health conditions do change or evolve sometimes and as such it is important that you follow up with your Primary Doctor to be re checked, 3-5 days is a general good time frame for follow up. You are always welcome to return to the ED for re assessment if your symptoms are worsening or you have new concerns Print Language: Malay Coding Level of Care Code ED Cyber Software Engineer for Luis Walden
[2025-06-20 11:40] LABS: Hematocrit 35.2 % (36-47); Hemoglobin 11.70 g/dL (11.27-16.99); Mean Corpuscular HGB Conc 33.2 g/dL (30-55); Mean Corpuscular Hemoglobin 31.5 pg (27-33); Mean Corpuscular Volume 94.6 fl (85-98); Nucleated Red Blood Cells % 0 %; Platelet Count 142 10^3/cmm (157-399); Red Blood Count 3.72 10^6/uL (3.85-5.65); White Blood Count 11.98 10^3/uL (3.29-11.43)
[2025-06-20 11:52] LABS: Respiratory Syncytial Virus Ce NEGATIVE (Negative); SARS-CoV-2 PCR NEGATIVE (Negative)
[2025-06-20 11:55] VITALS: BP 112/61; PULSE 90; RESP 16; O2SAT 93
[2025-06-20 11:57] LABS: Alanine Aminotransferase 12 U/L (0-33); Albumin Level 4.2 g/dL (3.5-5.2); Alkaline Phosphatase 74 U/L (35-105); Anion Gap 16.7 (5-19); Aspartate Amino Transferase 25 U/L (0-32); Blood Urea Nitrogen 12 mg/dL (8-23); Calcium 9.4 mg/dL (8.5-10.5); Carbon Dioxide 26 mmol/L (22-29); Chloride 89 mmol/L (98-107); Creatinine Clr Calc Pharmacy 63.0268; Globulin 3.8 g/dL (1.3-4.6); Glucose 117 mg/dL (65-115); Osmolality Calculated 267 mOsm/kg (285-295); Potassium 3.7 mmol/L (3.5-5.1); Sodium 128 mmol/L (136-145); Total Protein 8.0 g/dL (6.6-8.7)
[2025-06-20 11:58] LABS: Lactic Sepsis W/Reflex 1.5 mmol/L (0.5-2.2)
[2025-06-20 12:21] VITALS: BP 127/69; PULSE 86; RESP 16; O2SAT 90
[2025-06-20 12:43] LABS: Glucose Urine UA Negative (Normal); Nitrate Urine Negative (Negative); Specific Gravity, Urine 1.009 (1.005-1.030)
[2025-06-20] MEDS: cefTRIAXone 1,000 mg SDV 1000 MG IVP (13:02)
[2025-06-20 13:15] VITALS: BP 137/89; PULSE 89; RESP 16; O2SAT 93
== END 2025-06-20 13:25 | disposition home or self-care (01) ==
PROVIDERS: Emergency Provider Emergency Medicine; PCP Physician Assistant
DX: J06.9 Acute upper respiratory infection, unspecified (principal); E86.0 Dehydration; E87.1 Hypo-osmolality and hyponatremia; Z11.52 Encounter for screening for COVID-19; Z87.891 Personal history of nicotine dependence; E78.5 Hyperlipidemia, unspecified; I10 Essential (primary) hypertension
CPT/HCPCS: 71045; 80053; 81001; 83605; 85025; 86140; 87040; 87637; 96361; 96374; 96375; 99284; J0696; J1100; J1642; J7030